=== PATIENT | male | born 1940 | race Caucasian/White ===

== ENCOUNTER 2016-06-15 12:17 | Emergency (ER) | payer MEDICARE, BC, OTHER ==
[~2016-06-15 12:17] MED LIST: ADVIL OR; ADVIL PO; ALEV220C2 PO; ALFU10TA2 PO; AMIT10TA2 OR; AMIT50TA PO; B COMPLEX VITAMIN PO; B-50 COMPLEX; BENI20TA11 PO; CIPR500T89 PO; COLA50CA OR; COZA100T PO; FINA5TAB2 PO; LOSA100T36 PO; MELOPOW PO; METAMUCIL PO; MIRA3350 PO; MIRALEX PO; PREG25CA PO; PREG50CA; PREG50CA PO; SILD50TA PO; SOMI25TA PO; SOMINEX; SOMINEX PO; TRAM50TA2 PO; VITA250L PO; VITAMIN D50000 UNT OR; WELL100T PO; acetaminophen OR; mucinex OR; vitamin D OR
--- NOTE | 2016-06-15 14:42 | EDDOCDS ---
Nurse's Notes [facility] Name: Romulo Banda Age: 75 yrs Sex: Male : 1940 Arrival Date: 06/15/2016 Time: 12:17 Bed TR8 Private MD: Unknown Pcp Diagnosis: Corns and callosities Presentation: 06/15 12:29 Presenting complaint: Patient states: "I called Dr Noel and he told me to come here. I mb9 have a growth between my toes on my right foot that needs to be removed.". Adult Sepsis Screening: The patient does not have new or worsening altered mentation. Patient's respiratory rate is less than 22. Systolic blood pressure is greater than 100. Patient has a qSOFA score of 0- Negative Sepsis Screen. Suicide/Homicide risk assessment- the patient denies having any suicidal and/or homicidal ideations and does not present with any other emotional, behavioral or mental health complaints. 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 Transition of care: patient was not received from another setting of care. 12:29 Acuity: MEY Level 4 mb9 12:29 Method Of Arrival: Walkin/Carried/Asstd mb9 Triage Assessment: 12:37 General: Appears in no apparent distress, Behavior is appropriate for age, cooperative. mb9 Pain: Location: right foot Pain currently is 2 out of 10 on a pain scale. Respiratory: Airway is patent Respiratory effort is even, unlabored. Musculoskeletal: Reports pain to right foot with ambulation. Historical: - Allergies: no known allergies; - Home Meds: 1. Vitamin B-6 50 mg Oral cap (Last dose: 06/14/2016) 2. losartan 100 mg oral tab 1 tab once daily (Last dose: 06/14/2016) 3. finasteride 5 mg oral tab 1 tab once daily (Last dose: 06/14/2016) 4. Metamucil Smooth Texture Oral pack Unknown daily (Last dose: 06/14/2016) 5. amitriptyline 50 mg Oral tab 1 tab once daily (Last dose: 06/14/2016) 6. tramadol 50 mg Oral tab 1 tab (Last dose: 06/14/2016) - PMHx: Hypertension; Anxiety; Depression; - PSHx: lower back and neck fusions; lower back fusion; neck fusion; - Social history: Smoking status: Patient uses tobacco products, heavy tobacco smoker. Patient uses alcohol on a daily basis. No barriers to communication noted, The patient speaks fluent Kazakh. - Family history: No immediate family members are acutely ill. - : The pt / caregiver states he / she is not on anticoagulants. Home medication list is obtained from the facility MAR. - Exposure Risk Screening:: None identified. Screenin:14 Screening information is obtained from the patient. Fall risk: No risks identified. mb9 Assistance ADL's: requires no assistance with activities of daily living. Abuse/DV Screen: The patient / caregiver reports he/she is: not in a situation that causes fear, pain or injury. Nutritional screening: No deficits noted. Advance Directives: There is no active DNR order. home support is adequate. Assessment: 14:14 General: Appears in no apparent distress, Behavior is appropriate for age, cooperative. mb9 Respiratory: Airway is patent Respiratory effort is even, unlabored. Vital Signs: 12:21 BP 173 / 89; Pulse 82; Resp 18 S; Temp 96.1(O); Pulse Ox 98% on R/A; Weight 72.57 kg gr2 (R); Height 5 ft. 0 in. (152.40 cm) (R); Pain 8/10; 14:15 mb9 12:21 Body Mass Index 31.25 (72.57 kg, 152.40 cm) gr2 14:15 pt refused to have vital signs taken at this time. mb9 Vitals: 12:21 Log In Time: June 15, 2016 at 12:21. gr2 ED Course: 12:20 Patient visited by Nain Gamboa. gr2 12:20 Unknown Pcp is Private Physician. gr2 12:20 Patient moved to Waiting gr2 12:22 Patient visited by Nain Gamboa. gr2 12:22 Patient moved to Pre RCE gr2 12:30 Triage Initiated mb9 12:40 pt advised to remain NPO until being seen by a provider. mb9 13:08 Carlos Estrella PA is PHCP. btw 13:08 Rebecca Cline MD is Attending Physician. btw 13:11 Patient moved to Triage 2 ar3 13:12 Patient visited by Carlos Estrella PA. btw 13:25 Wilfred Noel MD is Referral Physician. btw 13:25 Dick Solorzano DPM is Referral Physician. btw 13:40 Patient moved to TR8 ar3 14:14 The patient / caregiver is instructed regarding the plan of care and ED course. mb9 14:14 No IV's were initiated during this patient's visit. No procedures done that require mb9 assistance. Order Results: There are currently no results for this order. Outcome: 13:26 Discharge ordered by Provider. btw 14:14 Discharge Assessment: Patient awake, alert and oriented x 3. No cognitive and/or mb9 functional deficits noted. Patient verbalized understanding of disposition instructions. patient administered narcotics - no. The following High Risk Discharge criteria are identified: None. Discharged to home ambulatory. Condition: good Condition: stable Condition: improved. Discharge instructions given to patient, Instructed on discharge instructions, follow up and referral plans. medication usage, Demonstrated understanding of instructions, Pt was receptive of discharge instructions/ teaching. No special radiology studies were completed. Property :Personal belongings accompany Pt. 14:42 Patient left the ED. mb9 Signatures: Lydia Wilkerson, PUPPET ENGINEER PUPPET ENGINEER ar3 Carlos Estrella PA PA btw Nain Gamboa gr2 Reuben Aburto,RN RN mb9 SERENA
--- NOTE | 2016-06-15 14:42 | EDDOCDS ---
Physician Documentation [facility] Name: Romulo Banda Age: 75 yrs Sex: Male : 1940 Arrival Date: 06/15/2016 Time: 12:17 Bed TR8 Private MD: Unknown Pcp Disposition: 06/15/16 13:26 Discharged to Home/Self Care. Impression: Corns and callosities. - Condition is Stable. - Discharge Instructions: Skin Ulcer. - Medication Reconciliation, Local Pharmacy Hours form. - Follow up: Wilfred Noel MD; When: Call to arrange an appointment; Reason: Further diagnostic work-up, Recheck today's complaints, Continuance of care. Follow up: Dick Solorzano DPM; When: Call to arrange an appointment; Reason: Further diagnostic work-up, Recheck today's complaints, Continuance of care. - Problem is an ongoing problem. - Symptoms are unchanged. Historical: - Allergies: no known allergies; - Home Meds: 1. Vitamin B-6 50 mg Oral cap (Last dose: 06/14/2016) 2. losartan 100 mg oral tab 1 tab once daily (Last dose: 06/14/2016) 3. finasteride 5 mg oral tab 1 tab once daily (Last dose: 06/14/2016) 4. Metamucil Smooth Texture Oral pack Unknown daily (Last dose: 06/14/2016) 5. amitriptyline 50 mg Oral tab 1 tab once daily (Last dose: 06/14/2016) 6. tramadol 50 mg Oral tab 1 tab (Last dose: 06/14/2016) - PMHx: Hypertension; Anxiety; Depression; - PSHx: lower back and neck fusions; lower back fusion; neck fusion; - Social history: Smoking status: Patient uses tobacco products, heavy tobacco smoker. Patient uses alcohol on a daily basis. No barriers to communication noted, The patient speaks fluent [place]. - Family history: No immediate family members are acutely ill. - : The pt / caregiver states he / she is not on anticoagulants. Home medication list is obtained from the facility AUG. - Exposure Risk Screening:: None identified. Vital Signs: 06/15 12:21 BP 173 / 89; Pulse 82; Resp 18 S; Temp 96.1(O); Pulse Ox 98% on R/A; Weight 72.57 kg / gr2 159.99 lbs (R); Height 5 ft. 0 in. (152.40 cm) (R); Pain 8; 14:15 mb9 12:21 Body Mass Index 31.25 (72.57 kg, 152.40 cm) gr2 14:15 pt refused to have vital signs taken at this time. mb9 MDM: 13:40 Financial registration complete. lg Signatures: Alberto Avalos, Reg Reg lg Carlos Estrella PA PA btw Belles, Michael,RN RN mb9 MTDD
--- NOTE | 2016-06-17 15:43 | EDDOCDS ---
Nurse's Notes [facility] Name: Romulo Banda Age: 75 yrs Sex: Male : 1940 Arrival Date: 06/15/2016 Time: 12:17 Bed TR8 Private MD: Unknown Pcp Diagnosis: Corns and callosities Presentation: 06/15 12:29 Presenting complaint: Patient states: "I called Dr Noel and he told me to come here. I mb9 have a growth between my toes on my right foot that needs to be removed.". Adult Sepsis Screening: The patient does not have new or worsening altered mentation. Patient's respiratory rate is less than 22. Systolic blood pressure is greater than 100. Patient has a qSOFA score of 0- Negative Sepsis Screen. Suicide/Homicide risk assessment- the patient denies having any suicidal and/or homicidal ideations and does not present with any other emotional, behavioral or mental health complaints. Status: Patient is not a service officer or dependent. Transition of care: patient was not received from another setting of care. 12:29 Acuity: MEY Level 4 mb9 12:29 Method Of Arrival: Walkin/Carried/Asstd mb9 Triage Assessment: 12:37 General: Appears in no apparent distress, Behavior is appropriate for age, cooperative. mb9 Pain: Location: right foot Pain currently is 2 out of 10 on a pain scale. Respiratory: Airway is patent Respiratory effort is even, unlabored. Musculoskeletal: Reports pain to right foot with ambulation. Historical: - Allergies: no known allergies; - Home Meds: 1. Vitamin B-6 50 mg Oral cap (Last dose: 06/14/2016) 2. losartan 100 mg oral tab 1 tab once daily (Last dose: 06/14/2016) 3. finasteride 5 mg oral tab 1 tab once daily (Last dose: 06/14/2016) 4. Metamucil Smooth Texture Oral pack Unknown daily (Last dose: 06/14/2016) 5. amitriptyline 50 mg Oral tab 1 tab once daily (Last dose: 06/14/2016) 6. tramadol 50 mg Oral tab 1 tab (Last dose: 06/14/2016) - PMHx: Hypertension; Anxiety; Depression; - PSHx: lower back and neck fusions; lower back fusion; neck fusion; - Social history: Smoking status: Patient uses tobacco products, heavy tobacco smoker. Patient uses alcohol on a daily basis. No barriers to communication noted, The patient speaks fluent Georgian. - Family history: No immediate family members are acutely ill. - : The pt / caregiver states he / she is not on anticoagulants. Home medication list is obtained from the facility MAR. - Exposure Risk Screening:: None identified. Screenin:14 Screening information is obtained from the patient. Fall risk: No risks identified. mb9 Assistance ADL's: requires no assistance with activities of daily living. Abuse/DV Screen: The patient / caregiver reports he/she is: not in a situation that causes fear, pain or injury. Nutritional screening: No deficits noted. Advance Directives: There is no active DNR order. home support is adequate. Assessment: 14:14 General: Appears in no apparent distress, Behavior is appropriate for age, cooperative. mb9 Respiratory: Airway is patent Respiratory effort is even, unlabored. Vital Signs: 12:21 BP 173 / 89; Pulse 82; Resp 18 S; Temp 96.1(O); Pulse Ox 98% on R/A; Weight 72.57 kg gr2 (R); Height 5 ft. 0 in. (152.40 cm) (R); Pain 8/10; 14:15 mb9 12:21 Body Mass Index 31.25 (72.57 kg, 152.40 cm) gr2 14:15 pt refused to have vital signs taken at this time. mb9 Vitals: 12:21 Log In Time: June 15, 2016 at 12:21. gr2 ED Course: 12:20 Patient visited by Nain Gamboa. gr2 12:20 Unknown Pcp is Private Physician. gr2 12:20 Patient moved to Waiting gr2 12:22 Patient visited by Nain Gamboa. gr2 12:22 Patient moved to Pre RCE gr2 12:30 Triage Initiated mb9 12:40 pt advised to remain NPO until being seen by a provider. mb9 13:08 Carlos Estrella PA is PHCP. btw 13:08 Rebecca Cline MD is Attending Physician. btw 13:11 Patient moved to Triage 2 ar3 13:12 Patient visited by Carlos Estrella PA. btw 13:25 Wilfred Noel MD is Referral Physician. btw 13:25 Dick Solorzano DPM is Referral Physician. btw 13:40 Patient moved to TR8 ar3 14:14 The patient / caregiver is instructed regarding the plan of care and ED course. mb9 14:14 No IV's were initiated during this patient's visit. No procedures done that require mb9 assistance. 16:23 [facility] Payment Agreement was scanned into [employer] and attached to record. 06/16 12:43 T-Sheet-- Draft Copy was scanned into [employer] and attached to record. gb Order Results: There are currently no results for this order. Outcome: 06/15 13:26 Discharge ordered by Provider. btw 14:14 Discharge Assessment: Patient awake, alert and oriented x 3. No cognitive and/or mb9 functional deficits noted. Patient verbalized understanding of disposition instructions. patient administered narcotics - no. The following High Risk Discharge criteria are identified: None. Discharged to home ambulatory. Condition: good Condition: stable Condition: improved. Discharge instructions given to patient, Instructed on discharge instructions, follow up and referral plans. medication usage, Demonstrated understanding of instructions, Pt was receptive of discharge instructions/ teaching. No special radiology studies were completed. Property :Personal belongings accompany Pt. 14:42 Patient left the ED. mb9 Signatures: Rowena Iglesias, Reg Reg gb Alberto Avalos, Reg Reg lg Lydia Wilkerson, TELEPHONE INSTRUMENT SUPERVISOR TELEPHONE INSTRUMENT SUPERVISOR ar3 Carlos Estrella PA PA btw Nain Gamboa gr2 Reuben Aburto,RN RN mb9 Chart Complete MTDD
--- NOTE | 2016-06-17 15:43 | EDDOCDS ---
Physician Documentation [facility] Name: Romulo Banda Age: 75 yrs Sex: Male : 1940 Arrival Date: 06/15/2016 Time: 12:17 Bed TR8 Private MD: Unknown Pcp Disposition: 06/15/16 13:26 Discharged to Home/Self Care. Impression: Corns and callosities. - Condition is Stable. - Discharge Instructions: Skin Ulcer. - Medication Reconciliation, Local Pharmacy Hours form. - Follow up: Wilfred Noel MD; When: Call to arrange an appointment; Reason: Further diagnostic work-up, Recheck today's complaints, Continuance of care. Follow up: Dick Solorzano DPM; When: Call to arrange an appointment; Reason: Further diagnostic work-up, Recheck today's complaints, Continuance of care. - Problem is an ongoing problem. - Symptoms are unchanged. Historical: - Allergies: no known allergies; - Home Meds: 1. Vitamin B-6 50 mg Oral cap (Last dose: 06/14/2016) 2. losartan 100 mg oral tab 1 tab once daily (Last dose: 06/14/2016) 3. finasteride 5 mg oral tab 1 tab once daily (Last dose: 06/14/2016) 4. Metamucil Smooth Texture Oral pack Unknown daily (Last dose: 06/14/2016) 5. amitriptyline 50 mg Oral tab 1 tab once daily (Last dose: 06/14/2016) 6. tramadol 50 mg Oral tab 1 tab (Last dose: 06/14/2016) - PMHx: Hypertension; Anxiety; Depression; - PSHx: lower back and neck fusions; lower back fusion; neck fusion; - Social history: Smoking status: Patient uses tobacco products, heavy tobacco smoker. Patient uses alcohol on a daily basis. No barriers to communication noted, The patient speaks fluent Iraqi. - Family history: No immediate family members are acutely ill. - : The pt / caregiver states he / she is not on anticoagulants. Home medication list is obtained from the facility AUG. - Exposure Risk Screening:: None identified. Vital Signs: 06/15 12:21 BP 173 / 89; Pulse 82; Resp 18 S; Temp 96.1(O); Pulse Ox 98% on R/A; Weight 72.57 kg / gr2 159.99 lbs (R); Height 5 ft. 0 in. (152.40 cm) (R); Pain 8/10; 14:15 mb9 12:21 Body Mass Index 31.25 (72.57 kg, 152.40 cm) gr2 14:15 pt refused to have vital signs taken at this time. mb9 MDM: 13:40 Financial registration complete. [place] [facility] [place] was [place] into [employer] and attached to record. lg 06/16 12:43 T-Sheet-- Draft Copy was scanned into [employer] and attached to record. gb Signatures: Rowena Iglesias, Reg Reg gb Alberto Avalos, Reg Reg lg Carlos Estrella PA PA btw Belles, MichaelRN RN mb9 The chart was reviewed and I authenticate all verbal orders and agree with the evaluation and treatment provided.Attachments: 06/15 16:23 [facility] [place] lg 06/16 12:43 T-Sheet-- Draft Copy gb Chart Complete MTDD
--- NOTE | 2016-06-17 15:43 | EDDOCDS ---
Physician Documentation [facility] Name: Romulo Banda Age: 75 yrs Sex: Male : 1940 Arrival Date: 06/15/2016 Time: 12:17 Bed TR8 Private MD: Unknown Pcp Disposition: 06/15/16 13:26 Discharged to Home/Self Care. Impression: Corns and callosities. - Condition is Stable. - Discharge Instructions: Skin Ulcer. - Medication Reconciliation, Local Pharmacy Hours form. - Follow up: Wilfred Noel MD; When: Call to arrange an appointment; Reason: Further diagnostic work-up, Recheck today's complaints, Continuance of care. Follow up: Dick Solorzano DPM; When: Call to arrange an appointment; Reason: Further diagnostic work-up, Recheck today's complaints, Continuance of care. - Problem is an ongoing problem. - Symptoms are unchanged. Historical: - Allergies: no known allergies; - Home Meds: 1. Vitamin B-6 50 mg Oral cap (Last dose: 06/14/2016) 2. losartan 100 mg oral tab 1 tab once daily (Last dose: 06/14/2016) 3. finasteride 5 mg oral tab 1 tab once daily (Last dose: 06/14/2016) 4. Metamucil Smooth Texture Oral pack Unknown daily (Last dose: 06/14/2016) 5. amitriptyline 50 mg Oral tab 1 tab once daily (Last dose: 06/14/2016) 6. tramadol 50 mg Oral tab 1 tab (Last dose: 06/14/2016) - PMHx: Hypertension; Anxiety; Depression; - PSHx: lower back and neck fusions; lower back fusion; neck fusion; - Social history: Smoking status: Patient uses tobacco products, heavy tobacco smoker. Patient uses alcohol on a daily basis. No barriers to communication noted, The patient speaks fluent Nauruan. - Family history: No immediate family members are acutely ill. - : The pt / caregiver states he / she is not on anticoagulants. Home medication list is obtained from the facility AUG. - Exposure Risk Screening:: None identified. Vital Signs: 06/15 12:21 BP 173 / 89; Pulse 82; Resp 18 S; Temp 96.1(O); Pulse Ox 98% on R/A; Weight 72.57 kg / gr2 159.99 lbs (R); Height 5 ft. 0 in. (152.40 cm) (R); Pain 8/10; 14:15 mb9 12:21 Body Mass Index 31.25 (72.57 kg, 152.40 cm) gr2 14:15 pt refused to have vital signs taken at this time. mb9 MDM: 13:40 Financial registration complete. : [facility] [place] Payment Agreement was scanned into [employer] and attached to record. lg 06/16 12:43 T-Sheet-- Draft Copy was scanned into [employer] and attached to record. gb Signatures: Rowena Iglesias, Reg Reg gb Alberto Avalos, Reg Reg lg Carlos Estrella PA PA btw Belles, MichaelRN RN mb9 The chart was reviewed and I authenticate all verbal orders and agree with the evaluation and treatment provided.Attachments: 06/15 16:23 [facility] [place] Payment Agreement lg 06/16 12:43 T-Sheet-- Draft Copy gb Chart Complete MTDD
== END 2016-06-15 14:42 | disposition home or self-care (01) ==
LOC: M ED 12:17
DX: L84 Corns and callosities (principal); I10 Essential (primary) hypertension; F41.9 Anxiety disorder, unspecified; F32.9 Major depressive disorder, single episode, unspecified; F17.210 Nicotine dependence, cigarettes, uncomplicated; Z79.899 Other long term (current) drug therapy

== ENCOUNTER → 2016-06-18 | Outpatient (REF) | payer MEDICARE, OTHER | LOC: M SMT 17:02 | PROVIDERS: ATTEND Nurse Practitioner Women's Health | DX: R33.9 Retention of urine, unspecified (principal) | CPT/HCPCS: 51798; 81001; 87086; G0463 ==

== ENCOUNTER → 2016-06-25 | Outpatient (REF) | payer MEDICARE, OTHER | LOC: M SMT 16:58 | PROVIDERS: ATTEND Urology | DX: N40.1 Benign prostatic hyperplasia with lower urinary tract symptoms (principal) ==

== ENCOUNTER → 2016-07-12 | Outpatient (REF) | payer MEDICARE, OTHER ==
[~2016-07-12] MED LIST changes: +ACET500C PO; +AMLO5TAB2 PO; +CIPR500T3 PO; +PERCOCET PO; +STOO100C PO
[2016-07-12 18:19] LABS: INR 0.95
[2016-07-12 18:43] LABS: ALBUMIN 3.6 GM/DL (3.2-5.2); ALBUMIN/GLOBULIN RATIO 0.97 (1.00-1.93); BILIRUBIN,TOTAL 0.4 MG/DL (0.2-1.0); CALCIUM LEVEL 9.1 MG/DL (8.8-10.2); CREATININE FOR GFR 1.28 MG/DL (0.70-1.30); GLOMERULAR FILTRATION RATE 58.5 (>42); PERCENT SATURATION 25.3 % (19.7-37.4); POTASSIUM SERUM 4.7 MEQ/L (3.5-5.1); TOTAL PROTEIN 7.3 GM/DL (6.4-8.2)
[2016-07-12 19:00] LABS: BASO % 0.4 % (0.0-1.0); EOS # 0.4 K/mm3 (0.0-0.50); EOS % 5.4 % (0.0-3.0); LARGE UNSTAINED CELL # 0.2 K/mm3 (0.0-0.4); LARGE UNSTAINED CELL % 2.6 % (0.0-4.0); LYMPH # 1.3 K/mm3 (1.5-4.5); LYMPH % 18.5 % (24.0-44.0); MEAN CORPUSCULAR HEMOGLOBIN 31.7 pg (27.0-33.0); MEAN CORPUSCULAR HGB CONC 32.2 g/dl (32.0-36.5); MEAN CORPUSCULAR VOLUME 98.6 fl (80.0-96.0); MONO # 0.5 K/mm3 (0.0-0.8); MONO % 7.6 % (0.0-5.0); NEUTROPHILS # 4.7 K/mm3 (1.8-7.7); NEUTROPHILS % 65.5 % (36.0-66.0); PLATELET COUNT, AUTOMATED 325 k/mm3 (150-450); RED CELL DISTRIBUTION WIDTH 11.8 % (11.5-14.5); WHITE BLOOD COUNT 7.1 K/mm3 (4.0-10.0)
[2016-07-14 14:20] LABS: BETA 2 MICROGLOBULIN 2.5 mg/L (0.6-2.4)
[2016-07-15 00:06] LABS: FREE KAPPA LIGHT CHAINS SERUM 47.69 mg/L (3.30-19.40); FREE LAMBDA LIGHT CHAINS SERUM 58.85 mg/L (5.71-26.30); KAPPA/LAMBDA RATIO SERUM 0.81 (0.26-1.65)
== END ==
LOC: M SFHCPLAZ 14:47
PROVIDERS: ATTEND Family Medicine
DX: D47.2 Monoclonal gammopathy (principal); N18.3 Chronic kidney disease, stage 3 (moderate); D50.9 Iron deficiency anemia, unspecified; R73.01 Impaired fasting glucose; Z79.899 Other long term (current) drug therapy
CPT/HCPCS: 80053; 80061; 82232; 82728; 82784; 83036; 83550; 83883; 85025; 85610; 85730; G0463

== ENCOUNTER → 2016-07-13 | Outpatient (REF) | payer MEDICARE, OTHER ==
[~2016-07-13] MED LIST changes: -ACET500C PO; -AMLO5TAB2 PO; -CIPR500T3 PO; -PERCOCET PO; -STOO100C PO
== END ==
LOC: M SMT 17:15
PROVIDERS: ATTEND Urology
DX: R33.9 Retention of urine, unspecified (principal)

== ENCOUNTER → 2016-07-27 | Day surgery (SDC) | payer MEDICARE, BC, OTHER ==
[~2016-07-27] VITALS: Ht 172.7 cm; Wt 72.6 kg
[~2016-07-27] MED LIST changes: +ACET500C PO; +ALBUTEROL SULFATE 2.5 MG/0.5 ML INH NEB SOLN As Ordered ONE; +ALBUTEROL SULFATE 2.5 MG/0.5 ML INH NEB SOLN INH ONE; +AMLO5TAB2 PO; +CIPR500T3 PO; +CIPROFLOXACIN 500 MG TAB PO SCH; +KETOROLAC 60 MG/2 ML VIAL (J1885) As Ordered ONE; +LIDOCAINE 2% INJ 100 MG/5 ML SDV (FOR ANES.) As Ordered ONE; +LR 1,000 ML IV SCH; +MIDAZOLAM INJ 2 MG/2 ML VIAL (J2250) As Ordered ONE; +ONDANSETRON 4MG/2ML VIAL (J2405) As Ordered ONE; +ONDANSETRON 4MG/2ML VIAL (J2405) IV PRN; +PERCOCET 5MG/325MG TAB PO PRN; +PERCOCET PO; +PHENYLephrine HCL 500 MCG/5 ML (100MCG/ML) SYRINGE (J2370) As Ordered ONE; +PROPOFOL 200 MG/20 ML VIAL As Ordered ONE; +STOO100C PO; +ePHEDrine SULFATE 25 MG/5 ML(5MG/ML) SYRINGE As Ordered ONE; +fentaNYL 100 MCG/2 ML INJECTION (J3010) As Ordered ONE; +fentaNYL 100 MCG/2 ML INJECTION (J3010) IV PRN
[2016-07-27 12:45] VITALS: BP 127/62
--- NOTE | 2016-07-28 09:39 | RO ---
DATE OF PROCEDURE: 07/27/2016 PREOPERATIVE DIAGNOSIS: Bladder neck contracture. POSTOPERATIVE DIAGNOSIS: Bladder neck contracture. SURGERY PERFORMED: Cystoscopy, plus transurethral resection of bladder neck with electrovaporization Button transurethral resection of prostate (TURP). SURGEON: Dr. Mariano Pederson MARINE FIRER: None. ANESTHESIA: General. FINDINGS: Bladder neck contracture. COMPLICATIONS: None. ESTIMATED BLOOD LOSS: N/A. HISTORY OF PRESENT ILLNESS: This is a 75-year-old male patient that has a history of having had a TURP about 8 months ago. The patient actively came to the clinic for urinary retention. A cystoscopy was performed because a urinary catheter could not be placed. For this reason, a bladder neck dilatation and urinary catheter placement was placed in the urology clinic. The patient has been consented for a bladder neck contracture resection/incision under endoscopic guidance. The procedure consented was cystoscopy plus bladder neck incision/resection. PROCEDURE DESCRIPTION: In a patient under general anesthesia in supine modified low lithotomy position after prepping and draping the area of concern, which included the entire genitalia and abdomen, we introduced a #21 Ukrainian cystoscope with a 30 degrees lens under video endoscopic guidance. The fossa navicularis, penile urethra, bulbar urethra, and membranous urethra were totally normal. At the prostatic urethra could see the verumontanum. The bladder neck was tight. We could actively pass a cystoscope very tightly. The bladder had no tumors, no stones and no foreign objects. Bilateral trabeculations of the bladder were seen. Both ureteral orifices were seen excreting clear urine. We then proceeded to exchange the cystoscope for a resectoscope with a 30 degrees lens. We actively started with a Button to electrovaporize the bladder neck contracture at 7 o'clock and at 5 o'clock completely to the capsule. At that moment in time, we fulgurated bleeding vessels. Then passed the resectoscope out and passed a Amos catheter 20 Ukrainian which went very easy into the bladder. We placed the balloon with 20 mL and connected to gravity. PLAN: The patient will go home with antibiotic and pain medication. Followup at [facility] [place] in about three days to remove the Amos catheter. There were no complications during surgery.
== END | disposition home or self-care (01) ==
LOC: M SDC 08:03
PROVIDERS: ATTEND Urology
DX: N32.0 Bladder-neck obstruction (principal); I10 Essential (primary) hypertension; Z79.899 Other long term (current) drug therapy; F41.9 Anxiety disorder, unspecified; F32.9 Major depressive disorder, single episode, unspecified; F17.210 Nicotine dependence, cigarettes, uncomplicated
CPT/HCPCS: 36415; 52276; 52601; 86850; 86900; 86901; J0690; J1885; J2250; J2370; J2405; J3010

== ENCOUNTER → 2016-08-09 | Outpatient (REF) | payer MEDICARE, OTHER ==
[~2016-08-09] MED LIST changes: -ALBUTEROL SULFATE 2.5 MG/0.5 ML INH NEB SOLN As Ordered ONE; -ALBUTEROL SULFATE 2.5 MG/0.5 ML INH NEB SOLN INH ONE; -CIPROFLOXACIN 500 MG TAB PO SCH; -KETOROLAC 60 MG/2 ML VIAL (J1885) As Ordered ONE; -LIDOCAINE 2% INJ 100 MG/5 ML SDV (FOR ANES.) As Ordered ONE; -LR 1,000 ML IV SCH; -MIDAZOLAM INJ 2 MG/2 ML VIAL (J2250) As Ordered ONE; -ONDANSETRON 4MG/2ML VIAL (J2405) As Ordered ONE; -ONDANSETRON 4MG/2ML VIAL (J2405) IV PRN; -PERCOCET 5MG/325MG TAB PO PRN; -PHENYLephrine HCL 500 MCG/5 ML (100MCG/ML) SYRINGE (J2370) As Ordered ONE; -PROPOFOL 200 MG/20 ML VIAL As Ordered ONE; -ePHEDrine SULFATE 25 MG/5 ML(5MG/ML) SYRINGE As Ordered ONE; -fentaNYL 100 MCG/2 ML INJECTION (J3010) As Ordered ONE; -fentaNYL 100 MCG/2 ML INJECTION (J3010) IV PRN
== END ==
LOC: M SMT 12:50
PROVIDERS: ATTEND Urology
DX: N40.1 Benign prostatic hyperplasia with lower urinary tract symptoms (principal)

== ENCOUNTER → 2016-10-27 | Outpatient (REF) | payer MEDICARE, OTHER | LOC: M SMT 17:08 | PROVIDERS: ATTEND Urology | DX: N40.1 Benign prostatic hyperplasia with lower urinary tract symptoms (principal) | CPT/HCPCS: 51798; 81001; 87086; G0463 ==

== ENCOUNTER → 2016-11-15 | Outpatient (REF) | payer MEDICARE, OTHER ==
[2016-11-15 17:29] LABS: ALBUMIN 3.9 GM/DL (3.2-5.2); ALBUMIN/GLOBULIN RATIO 1.08 (1.00-1.93); BILIRUBIN,TOTAL 0.6 MG/DL (0.2-1.0); CALCIUM LEVEL 9.3 MG/DL (8.8-10.2); CREATININE FOR GFR 1.29 MG/DL (0.70-1.30); POTASSIUM SERUM 4.4 MEQ/L (3.5-5.1); TOTAL PROTEIN 7.5 GM/DL (6.4-8.2)
[2016-11-15 19:29] LABS: BASO % 0.6 % (0.0-1.0); EOS # 0.2 K/mm3 (0.0-0.50); EOS % 3.5 % (0.0-3.0); LARGE UNSTAINED CELL # 0.1 K/mm3 (0.0-0.4); LARGE UNSTAINED CELL % 1.9 % (0.0-4.0); LYMPH # 1.2 K/mm3 (1.5-4.5); LYMPH % 19.5 % (24.0-44.0); MEAN CORPUSCULAR HEMOGLOBIN 32.9 pg (27.0-33.0); MEAN CORPUSCULAR HGB CONC 33.4 g/dl (32.0-36.5); MEAN CORPUSCULAR VOLUME 98.4 fl (80.0-96.0); MONO # 0.6 K/mm3 (0.0-0.8); MONO % 8.8 % (0.0-5.0); NEUTROPHILS # 4.1 K/mm3 (1.8-7.7); NEUTROPHILS % 65.6 % (36.0-66.0); PLATELET COUNT, AUTOMATED 268 k/mm3 (150-450); RED CELL DISTRIBUTION WIDTH 12.7 % (11.5-14.5); WHITE BLOOD COUNT 6.3 K/mm3 (4.0-10.0)
== END ==
LOC: M SFHCPLAZ 14:28
PROVIDERS: ATTEND Family Medicine
DX: N18.3 Chronic kidney disease, stage 3 (moderate) (principal); R73.01 Impaired fasting glucose
CPT/HCPCS: 36415; 80053; 82306; 83036; 83970; 85025; G0463

== ENCOUNTER 2016-12-07 00:57 | Emergency (ER) | payer MEDICARE, BC, OTHER ==
[~2016-12-07 00:57] MED LIST changes: +CIPR-249 PO; -CIPR500T89 PO
[2016-12-07] MEDS ORDERED: TRAM50TA2 PO (01:19)
[2016-12-07] MEDS ORDERED: FINA5TAB2 PO (01:19)
[2016-12-07 02:10] LABS: MICROSCOPIC INDICATED? MAN YES (NO)
[2016-12-07 02:13] LABS: RBC, URINE TNTC /hpf (0-3); SQUAMOUS EPITHELIAL CELL URINE NONE SEEN /hpf (SMALL AMT)
[2016-12-07 02:14] LABS: BACTERIA, URINE MOD AMOUNT; HYALINE CAST, URINE NONE SEEN /lpf (0-1); MICROSCOPIC EXAM PERFORMED; TRANSITIONAL EPI CELLS, URINE SMALL AMOUNT /hpf
== END 2016-12-07 02:46 | disposition home or self-care (01) ==
LOC: M ED 02:05
DX: R31.0 Gross hematuria (principal); R33.8 Other retention of urine; Z79.899 Other long term (current) drug therapy

== ENCOUNTER → 2017-03-14 | Outpatient (REF) | payer MEDICARE, OTHER ==
[2017-03-14 19:02] LABS: VITAMIN B12 LEVEL 449 PG/ML (247-911)
[2017-03-14 19:11] LABS: ALBUMIN 3.7 GM/DL (3.2-5.2); ALBUMIN/GLOBULIN RATIO 0.95 (1.00-1.93); ALKALINE PHOSPHATASE 83 U/L (45-117); ALT/SGPT 21 U/L (12-78); ANION GAP 9 MEQ/L (8-16); AST/SGOT 15 U/L (15-37); BILIRUBIN,TOTAL 0.5 MG/DL (0.2-1.0); BLOOD UREA NITROGEN 25 MG/DL (7-18); CALCIUM LEVEL 9.2 MG/DL (8.8-10.2); CARBON DIOXIDE LEVEL 26 MEQ/L (21-32); CHLORIDE LEVEL 105 MEQ/L (98-107); CREATININE FOR GFR 1.17 MG/DL (0.70-1.30); GLOMERULAR FILTRATION RATE > 60.0 (>42); GLUCOSE, FASTING 71 MG/DL (83-110); POTASSIUM SERUM 4.2 MEQ/L (3.5-5.1); SODIUM LEVEL 140 MEQ/L (136-145); TOTAL PROTEIN 7.6 GM/DL (6.4-8.2)
[2017-03-14 19:27] LABS: BASO % 0.4 % (0.0-1.0); EOS # 0.2 10^3/uL (0.0-0.50); EOS % 1.8 % (0.0-3.0); IMMATURE GRANULOCYTE % 0.3 % (0-0); LYMPH # 1.3 10^3/uL (1.5-4.5); LYMPH % 12.1 % (24.0-44.0); MEAN CORPUSCULAR HEMOGLOBIN 31.9 pg (27.0-33.0); MEAN CORPUSCULAR HGB CONC 32.7 g/dl (32.0-36.5); MEAN CORPUSCULAR VOLUME 97.5 fl (80.0-96.0); MONO # 0.9 10^3/uL (0.0-0.8); MONO % 8.9 % (0.0-5.0); NEUTROPHILS # 8.1 10^3/uL (1.8-7.7); NEUTROPHILS % 76.5 % (36.0-66.0); PLATELET COUNT, AUTOMATED 307 10^3/uL (150-450); RED CELL DISTRIBUTION WIDTH 12.2 % (11.5-14.5); WHITE BLOOD COUNT 10.6 10^3/uL (4.0-10.0)
[2017-03-15 11:45] LABS: PRETREATED FOLATE FOR RBCFOL 10.4 NG/ML
[2017-03-17 00:07] LABS: FREE KAPPA LIGHT CHAINS SERUM 48.4 mg/L (3.3-19.4); FREE LAMBDA LIGHT CHAINS SERUM 58.5 mg/L (5.7-26.3); KAPPA/LAMBDA RATIO SERUM 0.83 (0.26-1.65)
== END ==
LOC: M SFHCPLAZ 15:39
PROVIDERS: ATTEND Family Medicine
DX: D47.2 Monoclonal gammopathy (principal); D50.9 Iron deficiency anemia, unspecified; R73.01 Impaired fasting glucose; Z23 Encounter for immunization
CPT/HCPCS: 80053; 82607; 82747; 83036; 83883; 85025; 90662; G0463

== ENCOUNTER 2017-06-20 06:48 | Inpatient (IN) | payer MEDICARE, BC, OTHER ==
[2017-06-20 07:37] LABS: HEMATOCRIT 30.6 % (42.0-52.0); HEMOGLOBIN 10.2 g/dl (14.0-18.0); MEAN CORPUSCULAR HEMOGLOBIN 30.9 pg (27.0-33.0); MEAN CORPUSCULAR HGB CONC 33.3 g/dl (32.0-36.5); MEAN CORPUSCULAR VOLUME 92.7 fl (80.0-96.0); PLATELET COUNT, AUTOMATED 285 10^3/uL (150-450); RED CELL DISTRIBUTION WIDTH 12.9 % (11.5-14.5)
[2017-06-20 07:46] LABS: POSITIVE MORPH POS FLAG
[2017-06-20 07:51] LABS: ADD MANUAL DIFFER YES; DIFF SLIDE NUMBER 114
[2017-06-20 07:57] LABS: BANDS 5 % (< 11); LYMPHOCYTES 4 % (16-52); MONOCYTES 4 % (0-8); NEUTROPHILS 87 % (35-75)
[2017-06-20 07:58] LABS: PLATELET ESTIMATE NORMAL (NORMAL)
[2017-06-20] MEDS: IPRATROPIUM 0.5MG/ALBUTEROL 2.5MG INH SOL UD 3ML (DUONEB)(J7620) NEB ×3 (08:00→20:35)
[2017-06-20] MEDS: ALBUTEROL SULFATE 2.5 MG/0.5 ML INH NEB SOLN INH (08:00)
[2017-06-20 08:01] LABS: LACTIC ACID SEPSIS PROTOCOL 0.9 MMOL/L (0.4-2.0)
[2017-06-20 08:06] LABS: ABG BASE EXCESS -1.6 (-2.0-2.0); ABG HCO3 22.2 MEQ/L (22.0-26.0); ABG O2 SATURATION 95.6 % (95.0-99.0); ABG PARTIAL PRESSURE CO2 34.2 mmHg (35.0-45.0); ABG PARTIAL PRESSURE O2 73.4 mmHg (75.0-100.0); ABG STANDARD HCO3 23.1 MEQ/L (22.0-26.0); ABG TOTAL CO2 23.2 MEQ/L (23.0-31.0)
[2017-06-20 08:07] LABS: ALBUMIN 2.4 GM/DL (3.2-5.2); ALKALINE PHOSPHATASE 293 U/L (45-117); ALT/SGPT 79 U/L (12-78); AST/SGOT 52 U/L (7-37); BILIRUBIN,DIRECT 0.4 MG/DL (0.0-0.2); BILIRUBIN,TOTAL 0.7 MG/DL (0.2-1.0); NT-PRO BNP 2151 PG/ML (<450); THYROID STIMULATING HORMONE 0.673 uIU/ML (0.358-3.740); THYROXINE (T4) 6.9 UG/DL (4.5-12.0); TOTAL PROTEIN 6.4 GM/DL (6.4-8.2)
[2017-06-20] MEDS: methylPREDNISolone INJ 125 MG/2 ML VIAL (J2930) IV (08:10)
[2017-06-20] MEDS: CEFTRIAXONE SOD 1 GM in APPROPRIATE DILUENT 1 EA IV (08:10)
[2017-06-20 08:41] LABS: MAGNESIUM LEVEL 2.5 MG/DL (1.8-2.4)
[2017-06-20] MEDS: AZITHROMYCIN INJ 500 MG, VIAL MATE ADAPTER 1 EACH in D5W 250 ML IV (09:00)
[2017-06-20 09:01] LABS: INR 1.17; PROTHROMBIN TIME 15.1 SECONDS (12.4-14.5)
[2017-06-20 09:02] LABS: PARTIAL THROMBOPLASTIN TIME 37.6 SECONDS (26.8-37.9)
[2017-06-20 09:11] LABS: ANION GAP 10 MEQ/L (8-16); BLOOD UREA NITROGEN 52 MG/DL (7-18); CALCIUM LEVEL 8.7 MG/DL (8.8-10.2); CARBON DIOXIDE LEVEL 23 MEQ/L (21-32); CHLORIDE LEVEL 108 MEQ/L (98-107); CK-MB VALUE MASS 3.8 NG/ML (0.0-3.6); CPK CREATINE PHOSPHOKINASE 136 U/L (39-308); CREATININE FOR GFR 1.57 MG/DL (0.70-1.30); GLOMERULAR FILTRATION RATE 46.1 (>42); GLUCOSE, FASTING 106 MG/DL (83-110); MB/CK RELATIVE INDEX 2.79 (< OR =4); SODIUM LEVEL 141 MEQ/L (136-145); TROPONIN I < 0.02 NG/ML (< 0.10)
[2017-06-20] MEDS ORDERED: LIDOCAINE 1% MDV 20ML VIAL As Ordered ×2 (09:20→14:02)
[2017-06-20] MEDS ORDERED: ISOVUE-370 76% 100ML VIAL (Q9967) As Ordered (09:31)
[2017-06-20 10:19] LABS: KETONE, URINE AUTO RFX TRACE mg/dL (NEGATIVE); LEUKOCYTE ESTERASE UR AUTO RFX NEGATIVE (NEGATIVE); MUCUS, URINE RFX SMALL (NEGATIVE); NITRITE, URINE AUTO RFX NEGATIVE (NEGATIVE); RBC, URINE AUTO RFX 63 /HPF (0-3); SPECIFIC GRAVITY UR AUTO RFX 1.023 (1.002-1.035); SQUAM EPITHELIAL CELL UR AURFX 1 /HPF (0-6); WBC, URINE AUTO RFX 17 /HPF (0-3)
[2017-06-20] MEDS ORDERED: MIRALAX *UNIT DOSE* 17GM PACKET PO (10:30)
[2017-06-20] MEDS ORDERED: ALBUTEROL SULFATE 2.5 MG/0.5 ML INH NEB SOLN NEB (10:30)
[2017-06-20] MEDS ORDERED: traMADol 50 MG TAB PO (10:30)
[2017-06-20 11:37] LABS: TOTAL PROTEIN 6.6 GM/DL (6.4-8.2)
[2017-06-20] MEDS: amLODIPine 5 MG TAB PO ×2 (13:40→20:26)
[2017-06-20] MEDS: TAMSULOSIN 0.4 MG CAP PO (13:40)
[2017-06-20] MEDS: NS 1,000 ML IV ×2 (13:40→22:30)
[2017-06-20] MEDS: DOCUSATE SODIUM 100 MG CAP PO (13:40)
[2017-06-20] MEDS: LOSARTAN 50 MG TAB PO (13:41)
[2017-06-20] MEDS: THIAMINE HCL 200 MG/2 ML VIAL (J3411) IV (13:41)
[2017-06-20] MEDS: FINASTERIDE 5 MG TAB PO (13:41)
[2017-06-20] MEDS: HEPARIN SOD (PORCINE) 5000 UNITS/ML VIAL SC ×2 (13:42→22:30)
[2017-06-20] MEDS ORDERED: FLUMAZENIL 0.5 MG/5 ML VIAL As Ordered (14:00)
[2017-06-20] MEDS ORDERED: MIDAZOLAM INJ 2 MG/2 ML VIAL (J2250) As Ordered ×3 (14:01)
[2017-06-20] MEDS ORDERED: ONDANSETRON 4MG/2ML VIAL (J2405) IV (14:45)
[2017-06-20] MEDS ORDERED: LEVALBUTEROL 1.25 MG/0.5 ML CONCENTRATE NEB NEB ×2 (14:45→20:00)
[2017-06-20] MEDS: MIDAZOLAM INJ 2 MG/2 ML VIAL (J2250) IV (14:52)
[2017-06-20] MEDS: LIDOCAINE 1% MDV 20ML VIAL SC (15:00)
[2017-06-20 15:07] LABS: LDH LACTATE DEHYDROGENASE 129 U/L (87-241)
[2017-06-20] MEDS: MOM 30ML SUSPENSION UDC PO (15:31)
[2017-06-20] MEDS: PERCOCET 5MG/325MG TAB PO ×2 (15:31→20:25)
[2017-06-20] MEDS: PANTOPRAZOLE 40MG TAB (PROTONIX) PO (15:31)
[2017-06-20 15:35] LABS: PH BODY FLUID 6.626 UNITS (NOT ESTABLISHED); SOURCE, BODY FLUID pH PLEURAL
[2017-06-20 15:55] LABS: LACTIC ACID SEPSIS PROTOCOL 1.1 MMOL/L (0.4-2.0)
[2017-06-20 16:00] LABS: ABG BASE EXCESS -1.7 (-2.0-2.0); ABG HCO3 21.7 MEQ/L (22.0-26.0); ABG O2 SATURATION 94.4 % (95.0-99.0); ABG PARTIAL PRESSURE CO2 32.1 mmHg (35.0-45.0); ABG PARTIAL PRESSURE O2 70.1 mmHg (75.0-100.0); ABG TOTAL CO2 22.6 MEQ/L (23.0-31.0); ABG pH (ARTERIAL) 7.447 UNITS (7.350-7.450)
[2017-06-20 16:02] LABS: AMYLASE, BODY FLUID 16 U/L (NOT ESTABLISHED); CHOLESTEROL, BODY FLUID < 50 MG/DL (NOT ESTABLISHED); SOURCE, BODY FLUID ALBUMIN PLEURAL; SOURCE, BODY FLUID AMYLASE PLEURAL; SOURCE, BODY FLUID CHOL PLEURAL; SOURCE, BODY FLUID GLUCOSE PLEURAL; SOURCE, BODY FLUID TOT PROTEIN PLEURAL; SOURCE, BODY FLUID TRIG PLEURAL; TOTAL PROTEIN, BODY FLUID 4.8 G/DL (NOT ESTABLISHED); TRIGLYCERIDE, BODY FLUID 43 MG/DL (NOT ESTABLISHED)
[2017-06-20 16:20] LABS: LDH, BODY FLUID 8590 U/L (NOT ESTABLISHED); SOURCE, BODY FLUID PLEURAL; SOURCE, BODY FLUID LDH PLEURAL
[2017-06-20] MEDS: ACETAMINOPHEN TAB 650MG DOSE (2X325MG) PO (16:45)
[2017-06-20] MEDS: VITAMIN B COMPLEX/VIT C CAP PO (16:46)
[2017-06-20 17:11] LABS: APPEARANCE, BODY FLUID TURBID (CLEAR); PLEURAL FL COLOR YELLOW (COLORLESS); WBC BODY FLUID 316400 /uL (0-10)
[2017-06-20 17:12] LABS: BF DIFF IF INDICATED? YES (NO); BF MONONUCLEAR CELL % 36.8 % (0-0); BF POLYMORPHONUCLEAR CELL % 63.2 % (0-0); RBC BODY FLUID 12 10^3/uL (<2)
[2017-06-21] MEDS: IPRATROPIUM 0.5MG/ALBUTEROL 2.5MG INH SOL UD 3ML (DUONEB)(J7620) NEB ×4 (02:00→20:57)
[2017-06-21] MEDS: PERCOCET 5MG/325MG TAB PO ×5 (02:24→21:30)
[2017-06-21 05:43] LABS: HEMATOCRIT 32.2 % (42.0-52.0); HEMOGLOBIN 10.6 g/dl (14.0-18.0); MEAN CORPUSCULAR HEMOGLOBIN 30.4 pg (27.0-33.0); MEAN CORPUSCULAR HGB CONC 32.9 g/dl (32.0-36.5); MEAN CORPUSCULAR VOLUME 92.3 fl (80.0-96.0); PLATELET COUNT, AUTOMATED 273 10^3/uL (150-450); RED BLOOD COUNT 3.49 10^6/uL (4.30-6.10); RED CELL DISTRIBUTION WIDTH 13.1 % (11.5-14.5); WHITE BLOOD COUNT 20.1 10^3/uL (4.0-10.0)
[2017-06-21 05:46] LABS: ADD MANUAL DIFFER YES; DIFF SLIDE NUMBER 59; POSITIVE MORPH POS FLAG
[2017-06-21 06:05] LABS: ALBUMIN 1.8 GM/DL (3.2-5.2); ALBUMIN/GLOBULIN RATIO 0.38 (1.00-1.93); ALKALINE PHOSPHATASE 229 U/L (45-117); ALT/SGPT 62 U/L (12-78); ANION GAP 8 MEQ/L (8-16); AST/SGOT 31 U/L (7-37); BILIRUBIN,TOTAL 0.4 MG/DL (0.2-1.0); BLOOD UREA NITROGEN 46 MG/DL (7-18); CALCIUM LEVEL 8.5 MG/DL (8.8-10.2); CARBON DIOXIDE LEVEL 24 MEQ/L (21-32); CHLORIDE LEVEL 110 MEQ/L (98-107); CREATININE FOR GFR 1.49 MG/DL (0.70-1.30); GLOMERULAR FILTRATION RATE 48.9 (>42); GLUCOSE, FASTING 160 MG/DL (83-110); MAGNESIUM LEVEL 3.2 MG/DL (1.8-2.4); POTASSIUM SERUM 4.2 MEQ/L (3.5-5.1); SODIUM LEVEL 142 MEQ/L (136-145); TOTAL PROTEIN 6.6 GM/DL (6.4-8.2)
[2017-06-21 06:39] LABS: BANDS 1 % (< 11); LYMPHOCYTES 2 % (16-52); MONOCYTES 8 % (0-8); NEUTROPHILS 89 % (35-75); PLATELET ESTIMATE NORMAL (NORMAL)
[2017-06-21] MEDS: HEPARIN SOD (PORCINE) 5000 UNITS/ML VIAL SC ×3 (06:51→21:32)
[2017-06-21] MEDS: CEFTRIAXONE SOD 1 GM in APPROPRIATE DILUENT 1 EA IV (09:06)
[2017-06-21] MEDS: MOM 30ML SUSPENSION UDC PO (09:06)
[2017-06-21] MEDS: VITAMIN B COMPLEX/VIT C CAP PO (09:06)
[2017-06-21] MEDS: TAMSULOSIN 0.4 MG CAP PO (09:06)
[2017-06-21] MEDS: FINASTERIDE 5 MG TAB PO (09:06)
[2017-06-21] MEDS: LOSARTAN 50 MG TAB PO (09:07)
[2017-06-21] MEDS: DOCUSATE SODIUM 100 MG CAP PO (09:07)
[2017-06-21] MEDS: amLODIPine 5 MG TAB PO ×2 (09:07→21:31)
[2017-06-21] MEDS: PANTOPRAZOLE 40MG TAB (PROTONIX) PO (09:07)
[2017-06-21] MEDS: AZITHROMYCIN INJ 500 MG, VIAL MATE ADAPTER 1 EACH in D5W 250 ML IV (09:08)
[2017-06-21] MEDS: THIAMINE HCL 200 MG/2 ML VIAL (J3411) IV (09:08)
[2017-06-21] MEDS: NS 1,000 ML IV ×2 (09:10→19:51)
[2017-06-21] MEDS: ALTEPLASE 2 MG/2 ML VIAL (J2997 PER 1MG) XX (13:30)
[2017-06-22] MEDS: IPRATROPIUM 0.5MG/ALBUTEROL 2.5MG INH SOL UD 3ML (DUONEB)(J7620) NEB ×4 (01:54→21:07)
[2017-06-22] MEDS: PERCOCET 5MG/325MG TAB PO ×3 (04:22→16:49)
[2017-06-22] MEDS: NS 1,000 ML IV ×2 (04:23→15:46)
[2017-06-22 05:47] LABS: HEMATOCRIT 29.6 % (42.0-52.0); HEMOGLOBIN 9.9 g/dl (14.0-18.0); MEAN CORPUSCULAR HEMOGLOBIN 30.9 pg (27.0-33.0); MEAN CORPUSCULAR HGB CONC 33.4 g/dl (32.0-36.5); MEAN CORPUSCULAR VOLUME 92.5 fl (80.0-96.0); PLATELET COUNT, AUTOMATED 252 10^3/uL (150-450); RED CELL DISTRIBUTION WIDTH 13.3 % (11.5-14.5); WHITE BLOOD COUNT 19.4 10^3/uL (4.0-10.0)
[2017-06-22 05:49] LABS: ADD MANUAL DIFFER YES; DIFF SLIDE NUMBER 37; POS COUNT POS FLAG; POSITIVE MORPH POS FLAG
[2017-06-22 06:12] LABS: ANION GAP 5 MEQ/L (8-16); BLOOD UREA NITROGEN 41 MG/DL (7-18); CARBON DIOXIDE LEVEL 27 MEQ/L (21-32); CHLORIDE LEVEL 108 MEQ/L (98-107); CREATININE FOR GFR 1.26 MG/DL (0.70-1.30); GLOMERULAR FILTRATION RATE 59.4 (>42); GLUCOSE, FASTING 121 MG/DL (83-110); POTASSIUM SERUM 5.1 MEQ/L (3.5-5.1); SODIUM LEVEL 140 MEQ/L (136-145)
[2017-06-22] MEDS: HEPARIN SOD (PORCINE) 5000 UNITS/ML VIAL SC ×3 (06:14→21:12)
[2017-06-22 06:17] LABS: BANDS 2 % (< 11); EOSINOPHILS 1 % (0-5); LYMPHOCYTES 8 % (16-52); METAMYELOCYTES 2 % (0-0); MONOCYTES 3 % (0-8); MYELOCYTES 2 % (0-0); NEUTROPHILS 82 % (35-75)
[2017-06-22 06:18] LABS: ANISOCYTOSIS 1+; PLATELET ESTIMATE NORMAL (NORMAL)
[2017-06-22] MEDS: CEFTRIAXONE SOD 2 GM in APPROPRIATE DILUENT 1 EA IV (10:09)
[2017-06-22] MEDS: LOSARTAN 50 MG TAB PO (10:12)
[2017-06-22] MEDS: amLODIPine 5 MG TAB PO ×2 (10:13→21:12)
[2017-06-22] MEDS: PANTOPRAZOLE 40MG TAB (PROTONIX) PO (10:13)
[2017-06-22] MEDS: TAMSULOSIN 0.4 MG CAP PO (10:13)
[2017-06-22] MEDS: DOCUSATE SODIUM 100 MG CAP PO (10:14)
[2017-06-22] MEDS: FINASTERIDE 5 MG TAB PO (10:14)
[2017-06-22] MEDS: THIAMINE HCL 200 MG/2 ML VIAL (J3411) IV (10:15)
[2017-06-22] MEDS: MOM 30ML SUSPENSION UDC PO (10:20)
[2017-06-22] MEDS: VITAMIN B COMPLEX/VIT C CAP PO (12:21)
[2017-06-22] MEDS ORDERED: LIDOCAINE 1% MDV 20ML VIAL As Ordered (14:12)
[2017-06-22 14:15] LABS: ALBUMIN % 38.1 % (55.8-66.1); ALPHA-1-GLOBULIN % 12.1 % (2.9-4.9); ALPHA-2-GLOBULINS % 16.4 % (7.1-11.8); BETA-1-GLOBULINS % 8.4 % (4.7-7.2); BETA-2-GLOBULINS % 6.8 % (3.2-6.5); GAMMA GLOBULIN % 18.2 % (11.1-18.8)
[2017-06-22 14:16] LABS: ALBUMIN 2.51 GM/DL (3.29-5.55); ALPHA-2-GLOBULINS 1.08 GM/DL (0.42-0.99); BETA-1-GLOBULINS 0.55 GM/DL (0.28-0.60); BETA-2-GLOBULINS 0.45 GM/DL (0.19-0.55)
[2017-06-22 17:33] LABS: CRYSTALS, BODY FLUID CA PYROPHOSPHATE (NONE SEEN); SOURCE, BODY FLUID CRYSTALS RT KNEE
[2017-06-22 18:04] LABS: RBC BODY FLUID 13 10^3/uL (<2)
[2017-06-22 18:05] LABS: BF MONONUCLEAR CELL % 9.9 % (0-0); WBC BODY FLUID 83430 /uL (0-10)
[2017-06-22 18:06] LABS: APPEARANCE, BODY FLUID TURBID (CLEAR); BF DIFF IF INDICATED? YES (NO); BF POLYMORPHONUCLEAR CELL % 90.1 % (0-0)
[2017-06-22 18:07] LABS: SOURCE, BODY FLUID RT KNEE
[2017-06-23] MEDS: ACETAMINOPHEN TAB 650MG DOSE (2X325MG) PO (00:18)
[2017-06-23] MEDS: IPRATROPIUM 0.5MG/ALBUTEROL 2.5MG INH SOL UD 3ML (DUONEB)(J7620) NEB ×4 (01:31→20:00)
[2017-06-23] MEDS: HEPARIN SOD (PORCINE) 5000 UNITS/ML VIAL SC ×3 (06:00→21:08)
[2017-06-23] MEDS: VITAMIN B COMPLEX/VIT C CAP PO (08:32)
[2017-06-23] MEDS: LOSARTAN 50 MG TAB PO (08:33)
[2017-06-23] MEDS: DOCUSATE SODIUM 100 MG CAP PO (08:33)
[2017-06-23] MEDS: PANTOPRAZOLE 40MG TAB (PROTONIX) PO (08:33)
[2017-06-23] MEDS: TAMSULOSIN 0.4 MG CAP PO (08:33)
[2017-06-23] MEDS: amLODIPine 5 MG TAB PO ×2 (08:34→21:08)
[2017-06-23] MEDS: FINASTERIDE 5 MG TAB PO (08:34)
[2017-06-23] MEDS: PERCOCET 5MG/325MG TAB PO ×2 (08:35→14:33)
[2017-06-23] MEDS: CEFTRIAXONE SOD 2 GM in APPROPRIATE DILUENT 1 EA IV (08:35)
[2017-06-23 08:54] LABS: HEMATOCRIT 34.2 % (42.0-52.0); HEMOGLOBIN 11.6 g/dl (14.0-18.0); MEAN CORPUSCULAR HEMOGLOBIN 30.3 pg (27.0-33.0); MEAN CORPUSCULAR HGB CONC 33.9 g/dl (32.0-36.5); MEAN CORPUSCULAR VOLUME 89.3 fl (80.0-96.0); PLATELET COUNT, AUTOMATED 309 10^3/uL (150-450); RED BLOOD COUNT 3.83 10^6/uL (4.30-6.10); RED CELL DISTRIBUTION WIDTH 13.5 % (11.5-14.5); WHITE BLOOD COUNT 17.6 10^3/uL (4.0-10.0)
[2017-06-23 08:56] LABS: ADD MANUAL DIFFER YES; DIFF SLIDE NUMBER 31; POS COUNT POS FLAG; POSITIVE MORPH POS FLAG
[2017-06-23] MEDS: MOM 30ML SUSPENSION UDC PO (09:24)
[2017-06-23 09:27] LABS: ANION GAP 8 MEQ/L (8-16); BLOOD UREA NITROGEN 28 MG/DL (7-18); CALCIUM LEVEL 8.3 MG/DL (8.8-10.2); CARBON DIOXIDE LEVEL 27 MEQ/L (21-32); CHLORIDE LEVEL 103 MEQ/L (98-107); CREATININE FOR GFR 1.09 MG/DL (0.70-1.30); GLOMERULAR FILTRATION RATE > 60.0 (>42); GLUCOSE, FASTING 149 MG/DL (83-110); POTASSIUM SERUM 4.4 MEQ/L (3.5-5.1); SODIUM LEVEL 138 MEQ/L (136-145)
[2017-06-23 09:29] LABS: BANDS 1 % (< 11); LYMPHOCYTES 11 % (16-52); MONOCYTES 2 % (0-8); MYELOCYTES 1 % (0-0); NEUTROPHILS 85 % (35-75)
[2017-06-23 09:34] LABS: PLATELET ESTIMATE NORMAL (NORMAL)
[2017-06-23] MEDS: NORCO, ANEXSIA 5/325MG TABLET (HYDROcodone/ACETAMINOPHEN) PO (11:19)
[2017-06-23] MEDS: MIRTAZAPINE 15 MG TAB PO (21:07)
[2017-06-24] MEDS: IPRATROPIUM 0.5MG/ALBUTEROL 2.5MG INH SOL UD 3ML (DUONEB)(J7620) NEB ×4 (01:52→20:00)
[2017-06-24] MEDS: ACETAMINOPHEN TAB 650MG DOSE (2X325MG) PO (03:22)
[2017-06-24] MEDS: HEPARIN SOD (PORCINE) 5000 UNITS/ML VIAL SC ×3 (05:59→22:03)
[2017-06-24 06:07] LABS: HEMATOCRIT 31.2 % (42.0-52.0); HEMOGLOBIN 10.7 g/dl (14.0-18.0); MEAN CORPUSCULAR HEMOGLOBIN 30.5 pg (27.0-33.0); MEAN CORPUSCULAR HGB CONC 34.3 g/dl (32.0-36.5); MEAN CORPUSCULAR VOLUME 88.9 fl (80.0-96.0); PLATELET COUNT, AUTOMATED 317 10^3/uL (150-450); RED BLOOD COUNT 3.51 10^6/uL (4.30-6.10); RED CELL DISTRIBUTION WIDTH 13.6 % (11.5-14.5); WHITE BLOOD COUNT 17.4 10^3/uL (4.0-10.0)
[2017-06-24 06:20] LABS: ANION GAP 6 MEQ/L (8-16); BLOOD UREA NITROGEN 30 MG/DL (7-18); CALCIUM LEVEL 8.5 MG/DL (8.8-10.2); CARBON DIOXIDE LEVEL 28 MEQ/L (21-32); CHLORIDE LEVEL 105 MEQ/L (98-107); CREATININE FOR GFR 0.96 MG/DL (0.70-1.30); GLOMERULAR FILTRATION RATE > 60.0 (>42); GLUCOSE, FASTING 112 MG/DL (83-110); POTASSIUM SERUM 4.1 MEQ/L (3.5-5.1); SODIUM LEVEL 139 MEQ/L (136-145)
[2017-06-24 06:25] LABS: ADD MANUAL DIFFER YES; DIFF SLIDE NUMBER 15; POS COUNT POS FLAG; POSITIVE MORPH POS FLAG
[2017-06-24 06:48] LABS: LYMPHOCYTES 6 % (16-52); METAMYELOCYTES 4 % (0-0); MONOCYTES 1 % (0-8); MYELOCYTES 8 % (0-0); NEUTROPHILS 81 % (35-75)
[2017-06-24 06:49] LABS: PLATELET ESTIMATE NORMAL (NORMAL); POIKILOCYTOSIS 1+
[2017-06-24] MEDS: VITAMIN B COMPLEX/VIT C CAP PO (08:16)
[2017-06-24] MEDS: DOCUSATE SODIUM 100 MG CAP PO (08:16)
[2017-06-24] MEDS: TAMSULOSIN 0.4 MG CAP PO (08:17)
[2017-06-24] MEDS: FINASTERIDE 5 MG TAB PO (08:17)
[2017-06-24] MEDS: PERCOCET 5MG/325MG TAB PO ×3 (08:17→22:05)
[2017-06-24] MEDS: PANTOPRAZOLE 40MG TAB (PROTONIX) PO (08:17)
[2017-06-24] MEDS: CEFTRIAXONE SOD 2 GM in APPROPRIATE DILUENT 1 EA IV (08:18)
[2017-06-24] MEDS: LOSARTAN 50 MG TAB PO (08:20)
[2017-06-24] MEDS: MOM 30ML SUSPENSION UDC PO (08:20)
[2017-06-24] MEDS: amLODIPine 5 MG TAB PO ×2 (08:20→20:27)
[2017-06-24] MEDS ORDERED: SLF 3 ML SYR IV (14:00)
[2017-06-24] MEDS: SLF 3 ML SYR IV ×2 (14:00→22:03)
[2017-06-24 16:47] LABS: ERYTHROCYTE SEDIMENTATION RATE 116 mm/hr (0-20)
[2017-06-24 18:54] LABS: HIV 1&2 SCREEN CENTAUR NEGATIVE (NEGATIVE)
[2017-06-24] MEDS: MIRTAZAPINE 15 MG TAB PO (20:27)
[2017-06-25] MEDS: IPRATROPIUM 0.5MG/ALBUTEROL 2.5MG INH SOL UD 3ML (DUONEB)(J7620) NEB ×4 (02:00→19:45)
[2017-06-25 03:51] LABS: HEMATOCRIT 29.9 % (42.0-52.0); HEMOGLOBIN 10.2 g/dl (14.0-18.0); MEAN CORPUSCULAR HEMOGLOBIN 30.5 pg (27.0-33.0); MEAN CORPUSCULAR HGB CONC 34.1 g/dl (32.0-36.5); MEAN CORPUSCULAR VOLUME 89.5 fl (80.0-96.0); PLATELET COUNT, AUTOMATED 308 10^3/uL (150-450); RED BLOOD COUNT 3.34 10^6/uL (4.30-6.10); RED CELL DISTRIBUTION WIDTH 13.5 % (11.5-14.5); WHITE BLOOD COUNT 16.7 10^3/uL (4.0-10.0)
[2017-06-25 04:07] LABS: ANION GAP 4 MEQ/L (8-16); BLOOD UREA NITROGEN 29 MG/DL (7-18); CARBON DIOXIDE LEVEL 29 MEQ/L (21-32); CHLORIDE LEVEL 107 MEQ/L (98-107); CREATININE FOR GFR 0.94 MG/DL (0.70-1.30); GLOMERULAR FILTRATION RATE > 60.0 (>42); GLUCOSE, FASTING 110 MG/DL (83-110); POTASSIUM SERUM 4.1 MEQ/L (3.5-5.1); SODIUM LEVEL 140 MEQ/L (136-145)
[2017-06-25 04:10] LABS: ADD MANUAL DIFFER YES; DIFF SLIDE NUMBER 12; POS COUNT POS FLAG; POSITIVE MORPH POS FLAG
[2017-06-25 05:32] LABS: BANDS 2 % (< 11); LYMPHOCYTES 8 % (16-52); METAMYELOCYTES 1 % (0-0); MONOCYTES 9 % (0-8); NEUTROPHILS 80 % (35-75); PLATELET ESTIMATE NORMAL (NORMAL)
[2017-06-25] MEDS: HEPARIN SOD (PORCINE) 5000 UNITS/ML VIAL SC ×3 (06:43→21:11)
[2017-06-25] MEDS: SLF 3 ML SYR IV ×3 (06:43→21:14)
[2017-06-25] MEDS ORDERED: ROPIvacaine 0.5% 30 ML INJECTION (J2795 PER 1MG) As Ordered (08:03)
[2017-06-25] MEDS: CEFTRIAXONE SOD 2 GM in APPROPRIATE DILUENT 1 EA IV ×2 (08:13→08:40)
[2017-06-25] MEDS ORDERED: fentaNYL 100 MCG/2 ML INJECTION (J3010) As Ordered ×3 (08:41→09:36)
[2017-06-25] MEDS ORDERED: PROPOFOL 200 MG/20 ML VIAL As Ordered (08:41)
[2017-06-25] MEDS ORDERED: LIDOCAINE 2% INJ 100 MG/5 ML SDV (FOR ANES.) As Ordered ×2 (08:41→09:21)
[2017-06-25] MEDS ORDERED: ONDANSETRON 4MG/2ML VIAL (J2405) As Ordered (09:04)
[2017-06-25] MEDS: ceFAZolin 1GM INJ (J0690 PER 500MG) As Ordered ×2 (09:21)
[2017-06-25] MEDS: LR 1,000 ML IV (10:30)
[2017-06-25] MEDS ORDERED: ONDANSETRON 4MG/2ML VIAL (J2405) IV (10:30)
[2017-06-25] MEDS ORDERED: fentaNYL 100 MCG/2 ML INJECTION (J3010) IV (10:30)
[2017-06-25] MEDS: TAMSULOSIN 0.4 MG CAP PO (10:44)
[2017-06-25] MEDS: PANTOPRAZOLE 40MG TAB (PROTONIX) PO (10:44)
[2017-06-25] MEDS: VITAMIN B COMPLEX/VIT C CAP PO (10:44)
[2017-06-25] MEDS: LOSARTAN 50 MG TAB PO (10:45)
[2017-06-25] MEDS: DOCUSATE SODIUM 100 MG CAP PO (10:45)
[2017-06-25] MEDS: FINASTERIDE 5 MG TAB PO (10:46)
[2017-06-25] MEDS: amLODIPine 5 MG TAB PO ×2 (10:46→21:12)
[2017-06-25] MEDS: PERCOCET 5MG/325MG TAB PO ×3 (10:49→21:16)
[2017-06-25] MEDS: MIRTAZAPINE 15 MG TAB PO (21:11)
[2017-06-26] MEDS: PERCOCET 5MG/325MG TAB PO ×4 (00:49→20:46)
[2017-06-26] MEDS: IPRATROPIUM 0.5MG/ALBUTEROL 2.5MG INH SOL UD 3ML (DUONEB)(J7620) NEB ×4 (02:00→19:36)
[2017-06-26] MEDS: HEPARIN SOD (PORCINE) 5000 UNITS/ML VIAL SC ×3 (05:07→20:42)
[2017-06-26] MEDS: SLF 3 ML SYR IV ×3 (05:08→20:42)
[2017-06-26 05:36] LABS: BASO % 0.1 % (0.0-1.0); EOS # 0.1 10^3/uL (0.0-0.50); EOS % 0.4 % (0.0-3.0); HEMATOCRIT 28.4 % (42.0-52.0); HEMOGLOBIN 9.3 g/dl (14.0-18.0); IMMATURE GRANULOCYTE # 0.5 10^3/uL (0-0); LYMPH # 1.1 10^3/uL (1.5-4.5); LYMPH % 8.2 % (24.0-44.0); MEAN CORPUSCULAR HEMOGLOBIN 30.3 pg (27.0-33.0); MEAN CORPUSCULAR HGB CONC 32.7 g/dl (32.0-36.5); MEAN CORPUSCULAR VOLUME 92.5 fl (80.0-96.0); MONO # 1.3 10^3/uL (0.0-0.8); MONO % 9.7 % (0.0-5.0); NEUTROPHILS # 10.4 10^3/uL (1.8-7.7); NEUTROPHILS % 77.6 % (36.0-66.0); PLATELET COUNT, AUTOMATED 296 10^3/uL (150-450); RED BLOOD COUNT 3.07 10^6/uL (4.30-6.10); RED CELL DISTRIBUTION WIDTH 13.9 % (11.5-14.5); WHITE BLOOD COUNT 13.4 10^3/uL (4.0-10.0)
[2017-06-26 05:51] LABS: ANION GAP 4 MEQ/L (8-16); BLOOD UREA NITROGEN 27 MG/DL (7-18); CARBON DIOXIDE LEVEL 31 MEQ/L (21-32); CHLORIDE LEVEL 105 MEQ/L (98-107); CREATININE FOR GFR 1.08 MG/DL (0.70-1.30); GLOMERULAR FILTRATION RATE > 60.0 (>42); GLUCOSE, FASTING 113 MG/DL (83-110); POTASSIUM SERUM 4.3 MEQ/L (3.5-5.1); SODIUM LEVEL 140 MEQ/L (136-145)
[2017-06-26] MEDS: VITAMIN B COMPLEX/VIT C CAP PO (08:27)
[2017-06-26] MEDS: DOCUSATE SODIUM 100 MG CAP PO (08:27)
[2017-06-26] MEDS: PANTOPRAZOLE 40MG TAB (PROTONIX) PO (08:28)
[2017-06-26] MEDS: amLODIPine 5 MG TAB PO ×2 (08:28→20:41)
[2017-06-26] MEDS: LOSARTAN 50 MG TAB PO (08:28)
[2017-06-26] MEDS: TAMSULOSIN 0.4 MG CAP PO (08:28)
[2017-06-26] MEDS: FINASTERIDE 5 MG TAB PO (08:28)
[2017-06-26] MEDS ORDERED: MOM 30ML SUSPENSION UDC As Ordered (14:07)
[2017-06-26] MEDS: NORCO, ANEXSIA 5/325MG TABLET (HYDROcodone/ACETAMINOPHEN) PO (14:08)
[2017-06-26] MEDS: MIRALAX *UNIT DOSE* 17GM PACKET PO (14:11)
[2017-06-26] MEDS: MIRTAZAPINE 15 MG TAB PO (20:39)
[2017-06-27] MEDS: IPRATROPIUM 0.5MG/ALBUTEROL 2.5MG INH SOL UD 3ML (DUONEB)(J7620) NEB ×3 (01:28→21:12)
[2017-06-27] MEDS: HEPARIN SOD (PORCINE) 5000 UNITS/ML VIAL SC ×3 (04:29→21:21)
[2017-06-27] MEDS: ACETAMINOPHEN TAB 650MG DOSE (2X325MG) PO (04:29)
[2017-06-27] MEDS: SLF 3 ML SYR IV ×3 (04:30→21:30)
[2017-06-27 05:21] LABS: BASO % 0.1 % (0.0-1.0); EOS # 0.1 10^3/uL (0.0-0.50); EOS % 0.6 % (0.0-3.0); HEMATOCRIT 28.9 % (42.0-52.0); HEMOGLOBIN 9.4 g/dl (14.0-18.0); IMMATURE GRANULOCYTE # 0.3 10^3/uL (0-0); IMMATURE GRANULOCYTE % 2.2 % (0-0); MEAN CORPUSCULAR HEMOGLOBIN 30.2 pg (27.0-33.0); MEAN CORPUSCULAR HGB CONC 32.5 g/dl (32.0-36.5); MEAN CORPUSCULAR VOLUME 92.9 fl (80.0-96.0); MONO # 1.5 10^3/uL (0.0-0.8); MONO % 10.9 % (0.0-5.0); NEUTROPHILS # 11.1 10^3/uL (1.8-7.7); NEUTROPHILS % 79.2 % (36.0-66.0); PLATELET COUNT, AUTOMATED 351 10^3/uL (150-450); RED BLOOD COUNT 3.11 10^6/uL (4.30-6.10)
[2017-06-27] MEDS: CEFTRIAXONE SOD 2 GM in APPROPRIATE DILUENT 1 EA IV (08:40)
[2017-06-27] MEDS: VITAMIN B COMPLEX/VIT C CAP PO (09:15)
[2017-06-27] MEDS: LOSARTAN 50 MG TAB PO (09:16)
[2017-06-27] MEDS: FINASTERIDE 5 MG TAB PO (09:17)
[2017-06-27] MEDS: TAMSULOSIN 0.4 MG CAP PO (09:17)
[2017-06-27] MEDS: amLODIPine 5 MG TAB PO ×2 (09:17→21:22)
[2017-06-27] MEDS: DOCUSATE SODIUM 100 MG CAP PO (09:17)
[2017-06-27] MEDS: PANTOPRAZOLE 40MG TAB (PROTONIX) PO (09:17)
[2017-06-27] MEDS: MOM 30ML SUSPENSION UDC PO (09:50)
[2017-06-27 11:13] LABS: ALBUMIN 2.1 GM/DL (3.2-5.2); ALBUMIN/GLOBULIN RATIO 0.42 (1.00-1.93); ALKALINE PHOSPHATASE 231 U/L (45-117); ALT/SGPT 81 U/L (12-78); ANION GAP 4 MEQ/L (8-16); AST/SGOT 41 U/L (7-37); BILIRUBIN,TOTAL 0.3 MG/DL (0.2-1.0); BLOOD UREA NITROGEN 30 MG/DL (7-18); CALCIUM LEVEL 8.3 MG/DL (8.8-10.2); CARBON DIOXIDE LEVEL 31 MEQ/L (21-32); CHLORIDE LEVEL 103 MEQ/L (98-107); CREATININE FOR GFR 1.22 MG/DL (0.70-1.30); GLOMERULAR FILTRATION RATE > 60.0 (>42); GLUCOSE, FASTING 116 MG/DL (83-110); POTASSIUM SERUM 5.1 MEQ/L (3.5-5.1); SODIUM LEVEL 138 MEQ/L (136-145); TOTAL PROTEIN 7.1 GM/DL (6.4-8.2)
[2017-06-27] MEDS: PERCOCET 5MG/325MG TAB PO ×2 (15:54→21:29)
[2017-06-27] MEDS: MIRTAZAPINE 15 MG TAB PO (21:21)
[2017-06-28] MEDS: ACETAMINOPHEN TAB 650MG DOSE (2X325MG) PO ×3 (00:06→20:12)
[2017-06-28] MEDS: IPRATROPIUM 0.5MG/ALBUTEROL 2.5MG INH SOL UD 3ML (DUONEB)(J7620) NEB ×4 (02:00→21:12)
[2017-06-28] MEDS: HEPARIN SOD (PORCINE) 5000 UNITS/ML VIAL SC ×3 (04:57→20:11)
[2017-06-28] MEDS: SLF 3 ML SYR IV ×3 (04:58→20:18)
[2017-06-28] MEDS: CEFTRIAXONE SOD 2 GM in APPROPRIATE DILUENT 1 EA IV (08:53)
[2017-06-28] MEDS: TAMSULOSIN 0.4 MG CAP PO (08:54)
[2017-06-28] MEDS: amLODIPine 5 MG TAB PO ×2 (08:54→20:11)
[2017-06-28] MEDS: LOSARTAN 50 MG TAB PO (08:54)
[2017-06-28] MEDS: VITAMIN B COMPLEX/VIT C CAP PO (08:54)
[2017-06-28] MEDS: DOCUSATE SODIUM 100 MG CAP PO (08:55)
[2017-06-28] MEDS: PANTOPRAZOLE 40MG TAB (PROTONIX) PO (08:55)
[2017-06-28] MEDS: FINASTERIDE 5 MG TAB PO (08:55)
[2017-06-28] MEDS: PERCOCET 5MG/325MG TAB PO ×2 (08:55→20:12)
[2017-06-28] MEDS: NORCO, ANEXSIA 5/325MG TABLET (HYDROcodone/ACETAMINOPHEN) PO (12:11)
[2017-06-28] MEDS: SODIUM CHLORIDE 0.9% INJ 10 ML SYR IV (17:18)
[2017-06-28 19:05] LABS: APPEARANCE, URINE HAZY (CLEAR); BACTERIA, URINE AUTO NEGATIVE (NEGATIVE); BILIRUBIN, URINE AUTO NEGATIVE (NEGATIVE); BLOOD, URINE BLOOD NEGATIVE (NEGATIVE); COLOR, URINE YELLOW (YELLOW); GLUCOSE, URINE (UA) AUTO NEGATIVE (NEGATIVE); KETONE, URINE AUTO NEGATIVE (NEGATIVE); LEUKOCYTE ESTERASE, URINE AUTO NEGATIVE (NEGATIVE); NITRITE, URINE AUTO NEGATIVE (NEGATIVE); PROTEIN, URINE AUTO NEGATIVE (NEGATIVE); RBC, URINE AUTO 3 /HPF (0-3); SPECIFIC GRAVITY URINE AUTO 1.015 (1.002-1.035); SQUAMOUS EPITHELIAL CELL UR AU 0 /HPF (0-6); UROBILINOGEN, URINE AUTO 0.2 mg/dL (0.0-2.0); WBC, URINE AUTO 1 /HPF (0-3)
[2017-06-28] MEDS: MIRTAZAPINE 15 MG TAB PO (20:11)
[2017-06-29] MEDS: IPRATROPIUM 0.5MG/ALBUTEROL 2.5MG INH SOL UD 3ML (DUONEB)(J7620) NEB ×4 (01:45→21:20)
[2017-06-29] MEDS: SODIUM CHLORIDE 0.9% INJ 10 ML SYR IV ×2 (04:09→17:21)
[2017-06-29] MEDS: HEPARIN SOD (PORCINE) 5000 UNITS/ML VIAL SC ×3 (04:09→22:14)
[2017-06-29] MEDS: SLF 3 ML SYR IV (04:14)
[2017-06-29 04:47] LABS: BASO % 0.2 % (0.0-1.0); EOS % 0.3 % (0.0-3.0); HEMATOCRIT 26.5 % (42.0-52.0); HEMOGLOBIN 8.5 g/dl (14.0-18.0); IMMATURE GRANULOCYTE # 0.1 10^3/uL (0-0); IMMATURE GRANULOCYTE % 0.8 % (0-0); LYMPH # 0.9 10^3/uL (1.5-4.5); LYMPH % 7.8 % (24.0-44.0); MEAN CORPUSCULAR HEMOGLOBIN 30.5 pg (27.0-33.0); MEAN CORPUSCULAR HGB CONC 32.1 g/dl (32.0-36.5); MONO # 1.6 10^3/uL (0.0-0.8); MONO % 13.9 % (0.0-5.0); NEUTROPHILS # 8.8 10^3/uL (1.8-7.7); PLATELET COUNT, AUTOMATED 406 10^3/uL (150-450); RED BLOOD COUNT 2.79 10^6/uL (4.30-6.10); RED CELL DISTRIBUTION WIDTH 14.1 % (11.5-14.5); WHITE BLOOD COUNT 11.4 10^3/uL (4.0-10.0)
[2017-06-29 05:01] LABS: ALBUMIN 1.8 GM/DL (3.2-5.2); ALBUMIN/GLOBULIN RATIO 0.41 (1.00-1.93); ALKALINE PHOSPHATASE 200 U/L (45-117); ALT/SGPT 63 U/L (12-78); ANION GAP 3 MEQ/L (8-16); AST/SGOT 40 U/L (7-37); BILIRUBIN,TOTAL 0.3 MG/DL (0.2-1.0); BLOOD UREA NITROGEN 34 MG/DL (7-18); CALCIUM LEVEL 7.9 MG/DL (8.8-10.2); CARBON DIOXIDE LEVEL 31 MEQ/L (21-32); CHLORIDE LEVEL 104 MEQ/L (98-107); CREATININE FOR GFR 1.26 MG/DL (0.70-1.30); GLOMERULAR FILTRATION RATE 59.4 (>42); GLUCOSE, FASTING 104 MG/DL (83-110); SODIUM LEVEL 138 MEQ/L (136-145); TOTAL PROTEIN 6.2 GM/DL (6.4-8.2)
[2017-06-29 05:22] LABS: POTASSIUM SERUM 5.2 MEQ/L (3.5-5.1)
[2017-06-29 05:34] LABS: ERYTHROCYTE SEDIMENTATION RATE 127 mm/hr (0-20)
[2017-06-29] MEDS: PANTOPRAZOLE 40MG TAB (PROTONIX) PO (08:44)
[2017-06-29] MEDS: VITAMIN B COMPLEX/VIT C CAP PO (08:44)
[2017-06-29] MEDS: TAMSULOSIN 0.4 MG CAP PO (08:44)
[2017-06-29] MEDS: amLODIPine 5 MG TAB PO ×2 (08:44→21:00)
[2017-06-29] MEDS: FINASTERIDE 5 MG TAB PO (08:44)
[2017-06-29] MEDS: DOCUSATE SODIUM 100 MG CAP PO (08:44)
[2017-06-29] MEDS: PERCOCET 5MG/325MG TAB PO (08:45)
[2017-06-29] MEDS: LOSARTAN 50 MG TAB PO (08:45)
[2017-06-29] MEDS: CEFTRIAXONE SOD 2 GM in APPROPRIATE DILUENT 1 EA IV (09:35)
[2017-06-29] MEDS: ACETAMINOPHEN TAB 650MG DOSE (2X325MG) PO (14:10)
[2017-06-29] MEDS: MOM 30ML SUSPENSION UDC PO (17:20)
[2017-06-29] MEDS: MIRALAX *UNIT DOSE* 17GM PACKET PO (17:21)
[2017-06-29] MEDS: MIRTAZAPINE 15 MG TAB PO (22:14)
[2017-06-30] MEDS: IPRATROPIUM 0.5MG/ALBUTEROL 2.5MG INH SOL UD 3ML (DUONEB)(J7620) NEB ×4 (01:41→20:30)
[2017-06-30 05:33] LABS: HEMOGLOBIN 8.1 g/dl (14.0-18.0); MEAN CORPUSCULAR HEMOGLOBIN 30.8 pg (27.0-33.0); MEAN CORPUSCULAR HGB CONC 32.4 g/dl (32.0-36.5); MEAN CORPUSCULAR VOLUME 95.1 fl (80.0-96.0); PLATELET COUNT, AUTOMATED 378 10^3/uL (150-450); RED BLOOD COUNT 2.63 10^6/uL (4.30-6.10); RED CELL DISTRIBUTION WIDTH 13.9 % (11.5-14.5); WHITE BLOOD COUNT 9.9 10^3/uL (4.0-10.0)
[2017-06-30] MEDS: MOM 30ML SUSPENSION UDC PO (05:36)
[2017-06-30] MEDS: HEPARIN SOD (PORCINE) 5000 UNITS/ML VIAL SC ×3 (05:37→21:25)
[2017-06-30] MEDS: SODIUM CHLORIDE 0.9% INJ 10 ML SYR IV ×2 (05:37→16:46)
[2017-06-30] MEDS: MIRALAX *UNIT DOSE* 17GM PACKET PO (05:38)
[2017-06-30] MEDS: ACETAMINOPHEN TAB 650MG DOSE (2X325MG) PO ×3 (05:52→16:46)
[2017-06-30 06:02] LABS: ALBUMIN 1.7 GM/DL (3.2-5.2); ALBUMIN/GLOBULIN RATIO 0.39 (1.00-1.93); ALKALINE PHOSPHATASE 194 U/L (45-117); ALT/SGPT 66 U/L (12-78); ANION GAP 3 MEQ/L (8-16); AST/SGOT 44 U/L (7-37); BILIRUBIN,TOTAL 0.5 MG/DL (0.2-1.0); BLOOD UREA NITROGEN 30 MG/DL (7-18); CARBON DIOXIDE LEVEL 31 MEQ/L (21-32); CHLORIDE LEVEL 104 MEQ/L (98-107); CREATININE FOR GFR 1.13 MG/DL (0.70-1.30); GLOMERULAR FILTRATION RATE > 60.0 (>42); GLUCOSE, FASTING 106 MG/DL (83-110); POTASSIUM SERUM 5.1 MEQ/L (3.5-5.1); SODIUM LEVEL 138 MEQ/L (136-145); TOTAL PROTEIN 6.1 GM/DL (6.4-8.2)
[2017-06-30] MEDS: LOSARTAN 50 MG TAB PO (08:55)
[2017-06-30] MEDS: DOCUSATE SODIUM 100 MG CAP PO (08:55)
[2017-06-30] MEDS: CEFTRIAXONE SOD 2 GM in APPROPRIATE DILUENT 1 EA IV (08:55)
[2017-06-30] MEDS: amLODIPine 5 MG TAB PO (08:56)
[2017-06-30] MEDS: TAMSULOSIN 0.4 MG CAP PO (08:56)
[2017-06-30] MEDS: PANTOPRAZOLE 40MG TAB (PROTONIX) PO (08:57)
[2017-06-30] MEDS: FINASTERIDE 5 MG TAB PO (08:57)
[2017-06-30] MEDS: VITAMIN B COMPLEX/VIT C CAP PO (08:57)
[2017-06-30] MEDS: NS 1,000 ML IV (11:53)
[2017-06-30 12:29] LABS: ERYTHROCYTE SEDIMENTATION RATE 126 mm/hr (0-20)
[2017-06-30 18:35] LABS: VITAMIN B12 LEVEL 794 PG/ML (247-911)
[2017-06-30] MEDS: MIRTAZAPINE 15 MG TAB PO (21:24)
[2017-07-01] MEDS: NS 1,000 ML IV (00:20)
[2017-07-01] MEDS: IPRATROPIUM 0.5MG/ALBUTEROL 2.5MG INH SOL UD 3ML (DUONEB)(J7620) NEB ×4 (02:00→19:49)
[2017-07-01] MEDS: ACETAMINOPHEN TAB 650MG DOSE (2X325MG) PO ×3 (05:03→17:58)
[2017-07-01] MEDS: HEPARIN SOD (PORCINE) 5000 UNITS/ML VIAL SC ×3 (05:03→22:16)
[2017-07-01] MEDS: SODIUM CHLORIDE 0.9% INJ 10 ML SYR IV ×2 (05:04→17:29)
[2017-07-01 05:27] LABS: BASO % 0.1 % (0.0-1.0); EOS % 0.3 % (0.0-3.0); HEMATOCRIT 24.8 % (42.0-52.0); IMMATURE GRANULOCYTE # 0.1 10^3/uL (0-0); IMMATURE GRANULOCYTE % 0.5 % (0-0); LYMPH # 0.8 10^3/uL (1.5-4.5); MEAN CORPUSCULAR HEMOGLOBIN 30.8 pg (27.0-33.0); MEAN CORPUSCULAR HGB CONC 32.3 g/dl (32.0-36.5); MEAN CORPUSCULAR VOLUME 95.4 fl (80.0-96.0); MONO # 1.3 10^3/uL (0.0-0.8); MONO % 11.5 % (0.0-5.0); NEUTROPHILS # 9.2 10^3/uL (1.8-7.7); NEUTROPHILS % 80.6 % (36.0-66.0); PLATELET COUNT, AUTOMATED 380 10^3/uL (150-450); RED CELL DISTRIBUTION WIDTH 13.9 % (11.5-14.5); RETIC HEMOGLOBIN EQUIVALENT 31.1 pg (24-36); RETICULOCYTE % 1.5 % (0.5-1.5); WHITE BLOOD COUNT 11.4 10^3/uL (4.0-10.0)
[2017-07-01 06:12] LABS: ALBUMIN 1.8 GM/DL (3.2-5.2); ALBUMIN/GLOBULIN RATIO 0.39 (1.00-1.93); ALKALINE PHOSPHATASE 193 U/L (45-117); ALT/SGPT 72 U/L (12-78); ANION GAP 5 MEQ/L (8-16); AST/SGOT 42 U/L (7-37); BILIRUBIN,TOTAL 0.3 MG/DL (0.2-1.0); BLOOD UREA NITROGEN 25 MG/DL (7-18); CALCIUM LEVEL 7.9 MG/DL (8.8-10.2); CARBON DIOXIDE LEVEL 27 MEQ/L (21-32); CHLORIDE LEVEL 104 MEQ/L (98-107); CREATININE FOR GFR 1.07 MG/DL (0.70-1.30); GLOMERULAR FILTRATION RATE > 60.0 (>42); GLUCOSE, FASTING 119 MG/DL (83-110); POTASSIUM SERUM 4.8 MEQ/L (3.5-5.1); SODIUM LEVEL 136 MEQ/L (136-145); TOTAL PROTEIN 6.4 GM/DL (6.4-8.2)
[2017-07-01] MEDS: DOCUSATE SODIUM 100 MG CAP PO (08:14)
[2017-07-01] MEDS: PANTOPRAZOLE 40MG TAB (PROTONIX) PO (08:14)
[2017-07-01] MEDS: VITAMIN B COMPLEX/VIT C CAP PO (08:14)
[2017-07-01] MEDS: FINASTERIDE 5 MG TAB PO (08:14)
[2017-07-01] MEDS: CEFTRIAXONE SOD 2 GM in APPROPRIATE DILUENT 1 EA IV (10:11)
[2017-07-01] MEDS ORDERED: PROHANCE 279.3MG/ML 15ML VIAL (A9576) As Ordered (19:26)
[2017-07-01] MEDS: MIRTAZAPINE 15 MG TAB PO (22:16)
[2017-07-02] MEDS: IPRATROPIUM 0.5MG/ALBUTEROL 2.5MG INH SOL UD 3ML (DUONEB)(J7620) NEB ×4 (01:26→20:00)
[2017-07-02] MEDS: ACETAMINOPHEN TAB 650MG DOSE (2X325MG) PO ×3 (04:49→23:09)
[2017-07-02] MEDS: MOM 30ML SUSPENSION UDC PO (04:50)
[2017-07-02] MEDS: SODIUM CHLORIDE 0.9% INJ 10 ML SYR IV ×2 (04:50→16:16)
[2017-07-02] MEDS: HEPARIN SOD (PORCINE) 5000 UNITS/ML VIAL SC ×3 (04:50→20:19)
[2017-07-02 05:35] LABS: HEMATOCRIT 25.8 % (42.0-52.0); HEMOGLOBIN 8.2 g/dl (14.0-18.0); MEAN CORPUSCULAR HEMOGLOBIN 29.8 pg (27.0-33.0); MEAN CORPUSCULAR HGB CONC 31.8 g/dl (32.0-36.5); MEAN CORPUSCULAR VOLUME 93.8 fl (80.0-96.0); PLATELET COUNT, AUTOMATED 434 10^3/uL (150-450); RED BLOOD COUNT 2.75 10^6/uL (4.30-6.10); RED CELL DISTRIBUTION WIDTH 13.8 % (11.5-14.5); WHITE BLOOD COUNT 9.2 10^3/uL (4.0-10.0)
[2017-07-02 05:41] LABS: ANION GAP 5 MEQ/L (8-16); BLOOD UREA NITROGEN 21 MG/DL (7-18); CALCIUM LEVEL 8.1 MG/DL (8.8-10.2); CARBON DIOXIDE LEVEL 28 MEQ/L (21-32); CHLORIDE LEVEL 106 MEQ/L (98-107); CREATININE FOR GFR 0.96 MG/DL (0.70-1.30); GLOMERULAR FILTRATION RATE > 60.0 (>42); GLUCOSE, FASTING 101 MG/DL (83-110); POTASSIUM SERUM 4.5 MEQ/L (3.5-5.1); SODIUM LEVEL 139 MEQ/L (136-145)
[2017-07-02] MEDS: VITAMIN B COMPLEX/VIT C CAP PO (08:37)
[2017-07-02] MEDS: CEFTRIAXONE SOD 2 GM in APPROPRIATE DILUENT 1 EA IV (08:37)
[2017-07-02] MEDS: PANTOPRAZOLE 40MG TAB (PROTONIX) PO (08:37)
[2017-07-02] MEDS: DOCUSATE SODIUM 100 MG CAP PO (08:37)
[2017-07-02] MEDS: FINASTERIDE 5 MG TAB PO (08:37)
[2017-07-02] MEDS: MIRTAZAPINE 15 MG TAB PO (20:19)
[2017-07-03] MEDS: IPRATROPIUM 0.5MG/ALBUTEROL 2.5MG INH SOL UD 3ML (DUONEB)(J7620) NEB ×4 (02:00→20:00)
[2017-07-03] MEDS: HEPARIN SOD (PORCINE) 5000 UNITS/ML VIAL SC ×3 (05:21→21:10)
[2017-07-03] MEDS: SODIUM CHLORIDE 0.9% INJ 10 ML SYR IV ×2 (05:21→17:25)
[2017-07-03 05:30] LABS: BASO % 0.2 % (0.0-1.0); EOS # 0.1 10^3/uL (0.0-0.50); EOS % 0.7 % (0.0-3.0); HEMATOCRIT 25.3 % (42.0-52.0); HEMOGLOBIN 8.1 g/dl (14.0-18.0); IMMATURE GRANULOCYTE % 0.3 % (0-0); LYMPH # 0.8 10^3/uL (1.5-4.5); LYMPH % 7.9 % (24.0-44.0); MEAN CORPUSCULAR HEMOGLOBIN 30.7 pg (27.0-33.0); MEAN CORPUSCULAR VOLUME 95.8 fl (80.0-96.0); MONO # 1.1 10^3/uL (0.0-0.8); MONO % 10.3 % (0.0-5.0); NEUTROPHILS # 8.6 10^3/uL (1.8-7.7); NEUTROPHILS % 80.6 % (36.0-66.0); PLATELET COUNT, AUTOMATED 391 10^3/uL (150-450); RED BLOOD COUNT 2.64 10^6/uL (4.30-6.10); RED CELL DISTRIBUTION WIDTH 13.5 % (11.5-14.5); WHITE BLOOD COUNT 10.7 10^3/uL (4.0-10.0)
[2017-07-03 05:57] LABS: IRON (FE) 13 UG/DL (65-175); PERCENT SATURATION 8.4 % (19.7-50.0); TOTAL IRON BINDING CAPACITY 154 UG/DL (250-450)
[2017-07-03 06:00] LABS: ALBUMIN 1.8 GM/DL (3.2-5.2); ALBUMIN/GLOBULIN RATIO 0.39 (1.00-1.93); ALKALINE PHOSPHATASE 173 U/L (45-117); ALT/SGPT 66 U/L (12-78); ANION GAP 5 MEQ/L (8-16); AST/SGOT 34 U/L (7-37); BILIRUBIN,TOTAL 0.3 MG/DL (0.2-1.0); BLOOD UREA NITROGEN 26 MG/DL (7-18); CALCIUM LEVEL 8.1 MG/DL (8.8-10.2); CARBON DIOXIDE LEVEL 28 MEQ/L (21-32); CHLORIDE LEVEL 106 MEQ/L (98-107); CREATININE FOR GFR 1.03 MG/DL (0.70-1.30); GLOMERULAR FILTRATION RATE > 60.0 (>42); GLUCOSE, FASTING 118 MG/DL (83-110); POTASSIUM SERUM 4.5 MEQ/L (3.5-5.1); SODIUM LEVEL 139 MEQ/L (136-145); TOTAL PROTEIN 6.4 GM/DL (6.4-8.2)
[2017-07-03] MEDS: PANTOPRAZOLE 40MG TAB (PROTONIX) PO (09:02)
[2017-07-03] MEDS: CEFTRIAXONE SOD 2 GM in APPROPRIATE DILUENT 1 EA IV (09:02)
[2017-07-03] MEDS: DOCUSATE SODIUM 100 MG CAP PO (09:02)
[2017-07-03] MEDS: VITAMIN B COMPLEX/VIT C CAP PO (09:02)
[2017-07-03] MEDS: FINASTERIDE 5 MG TAB PO (09:02)
[2017-07-03] MEDS: ACETAMINOPHEN TAB 650MG DOSE (2X325MG) PO (10:25)
[2017-07-03] MEDS: NORCO, ANEXSIA 5/325MG TABLET (HYDROcodone/ACETAMINOPHEN) PO (13:27)
[2017-07-03] MEDS: DICLOFENAC EPOLAMINE 1.3 % PATCH TOP (21:10)
[2017-07-03] MEDS: MUPIROCIN 2% OINT 22 GM TUBE TOP (21:10)
[2017-07-03] MEDS: MIRTAZAPINE 15 MG TAB PO (21:10)
[2017-07-04] MEDS: NORCO, ANEXSIA 5/325MG TABLET (HYDROcodone/ACETAMINOPHEN) PO ×4 (00:04→20:06)
[2017-07-04] MEDS: IPRATROPIUM 0.5MG/ALBUTEROL 2.5MG INH SOL UD 3ML (DUONEB)(J7620) NEB ×4 (02:00→20:08)
[2017-07-04] MEDS: MOM 30ML SUSPENSION UDC PO (05:49)
[2017-07-04] MEDS: HEPARIN SOD (PORCINE) 5000 UNITS/ML VIAL SC ×2 (05:50→22:00)
[2017-07-04] MEDS: SODIUM CHLORIDE 0.9% INJ 10 ML SYR IV ×2 (05:50→18:31)
[2017-07-04 07:00] LABS: BASO % 0.3 % (0.0-1.0); EOS # 0.1 10^3/uL (0.0-0.50); EOS % 0.7 % (0.0-3.0); HEMATOCRIT 25.4 % (42.0-52.0); IMMATURE GRANULOCYTE % 0.3 % (0-0); LYMPH % 10.6 % (24.0-44.0); MEAN CORPUSCULAR HEMOGLOBIN 30.2 pg (27.0-33.0); MEAN CORPUSCULAR HGB CONC 31.5 g/dl (32.0-36.5); MEAN CORPUSCULAR VOLUME 95.8 fl (80.0-96.0); MONO # 1.1 10^3/uL (0.0-0.8); MONO % 11.6 % (0.0-5.0); NEUTROPHILS % 76.5 % (36.0-66.0); PLATELET COUNT, AUTOMATED 374 10^3/uL (150-450); RED BLOOD COUNT 2.65 10^6/uL (4.30-6.10); RED CELL DISTRIBUTION WIDTH 13.3 % (11.5-14.5); WHITE BLOOD COUNT 9.2 10^3/uL (4.0-10.0)
[2017-07-04 07:28] LABS: ALBUMIN 1.8 GM/DL (3.2-5.2); ALBUMIN/GLOBULIN RATIO 0.38 (1.00-1.93); ALKALINE PHOSPHATASE 164 U/L (45-117); ALT/SGPT 66 U/L (12-78); ANION GAP 7 MEQ/L (8-16); AST/SGOT 34 U/L (7-37); BILIRUBIN,TOTAL 0.4 MG/DL (0.2-1.0); BLOOD UREA NITROGEN 24 MG/DL (7-18); CALCIUM LEVEL 8.6 MG/DL (8.8-10.2); CARBON DIOXIDE LEVEL 28 MEQ/L (21-32); CHLORIDE LEVEL 104 MEQ/L (98-107); CREATININE FOR GFR 1.02 MG/DL (0.70-1.30); GLOMERULAR FILTRATION RATE > 60.0 (>42); GLUCOSE, FASTING 95 MG/DL (83-110); POTASSIUM SERUM 4.7 MEQ/L (3.5-5.1); SODIUM LEVEL 139 MEQ/L (136-145); TOTAL PROTEIN 6.6 GM/DL (6.4-8.2)
[2017-07-04] MEDS: MUPIROCIN 2% OINT 22 GM TUBE TOP ×3 (08:10→20:04)
[2017-07-04] MEDS: DICLOFENAC EPOLAMINE 1.3 % PATCH TOP ×2 (08:10→20:04)
[2017-07-04] MEDS: VITAMIN B COMPLEX/VIT C CAP PO (08:10)
[2017-07-04] MEDS: CEFTRIAXONE SOD 2 GM in APPROPRIATE DILUENT 1 EA IV (08:10)
[2017-07-04] MEDS: FINASTERIDE 5 MG TAB PO (08:10)
[2017-07-04] MEDS: PANTOPRAZOLE 40MG TAB (PROTONIX) PO (08:10)
[2017-07-04] MEDS: DOCUSATE SODIUM 100 MG CAP PO (08:10)
[2017-07-04] MEDS: MIRTAZAPINE 15 MG TAB PO (20:04)
[2017-07-05] MEDS: IPRATROPIUM 0.5MG/ALBUTEROL 2.5MG INH SOL UD 3ML (DUONEB)(J7620) NEB ×5 (02:00→23:02)
[2017-07-05] MEDS: NORCO, ANEXSIA 5/325MG TABLET (HYDROcodone/ACETAMINOPHEN) PO ×3 (03:05→17:30)
[2017-07-05] MEDS: MOM 30ML SUSPENSION UDC PO (03:11)
[2017-07-05] MEDS: MIRALAX *UNIT DOSE* 17GM PACKET PO (03:11)
[2017-07-05] MEDS: SODIUM CHLORIDE 0.9% INJ 10 ML SYR IV ×3 (06:00→17:30)
[2017-07-05] MEDS: HEPARIN SOD (PORCINE) 5000 UNITS/ML VIAL SC ×3 (06:00→23:01)
[2017-07-05] MEDS: VITAMIN B COMPLEX/VIT C CAP PO (08:53)
[2017-07-05] MEDS: PANTOPRAZOLE 40MG TAB (PROTONIX) PO (08:53)
[2017-07-05] MEDS: CEFTRIAXONE SOD 2 GM in APPROPRIATE DILUENT 1 EA IV (08:53)
[2017-07-05] MEDS: predniSONE 20 MG TAB PO (08:54)
[2017-07-05] MEDS: FINASTERIDE 5 MG TAB PO (08:54)
[2017-07-05] MEDS: DICLOFENAC EPOLAMINE 1.3 % PATCH TOP ×2 (08:54→23:00)
[2017-07-05] MEDS: DOCUSATE SODIUM 100 MG CAP PO (08:54)
[2017-07-05] MEDS: MUPIROCIN 2% OINT 22 GM TUBE TOP ×3 (08:55→23:02)
[2017-07-05 20:53] LABS: BEDSIDE GLUCOSE 262 MG/DL (83-110)
[2017-07-05] MEDS: MIRTAZAPINE 15 MG TAB PO (23:00)
[2017-07-06] MEDS: HEPARIN SOD (PORCINE) 5000 UNITS/ML VIAL SC ×3 (05:26→21:13)
[2017-07-06] MEDS: SODIUM CHLORIDE 0.9% INJ 10 ML SYR IV ×3 (05:28→18:26)
[2017-07-06 06:04] LABS: BASO % 0.3 % (0.0-1.0); EOS # 0.1 10^3/uL (0.0-0.50); EOS % 0.8 % (0.0-3.0); HEMATOCRIT 24.7 % (42.0-52.0); HEMOGLOBIN 7.7 g/dl (14.0-18.0); IMMATURE GRANULOCYTE % 0.3 % (0-0); LYMPH # 1.2 10^3/uL (1.5-4.5); LYMPH % 13.2 % (24.0-44.0); MEAN CORPUSCULAR HGB CONC 31.2 g/dl (32.0-36.5); MEAN CORPUSCULAR VOLUME 96.1 fl (80.0-96.0); MONO # 0.8 10^3/uL (0.0-0.8); NEUTROPHILS # 6.7 10^3/uL (1.8-7.7); NEUTROPHILS % 76.4 % (36.0-66.0); PLATELET COUNT, AUTOMATED 368 10^3/uL (150-450); RED BLOOD COUNT 2.57 10^6/uL (4.30-6.10); RED CELL DISTRIBUTION WIDTH 13.2 % (11.5-14.5); WHITE BLOOD COUNT 8.8 10^3/uL (4.0-10.0)
[2017-07-06 06:42] LABS: ALBUMIN 1.9 GM/DL (3.2-5.2); ALBUMIN/GLOBULIN RATIO 0.39 (1.00-1.93); ALKALINE PHOSPHATASE 174 U/L (45-117); ALT/SGPT 101 U/L (12-78); ANION GAP 6 MEQ/L (8-16); AST/SGOT 72 U/L (7-37); BILIRUBIN,TOTAL 0.2 MG/DL (0.2-1.0); BLOOD UREA NITROGEN 30 MG/DL (7-18); CALCIUM LEVEL 8.5 MG/DL (8.8-10.2); CARBON DIOXIDE LEVEL 29 MEQ/L (21-32); CHLORIDE LEVEL 105 MEQ/L (98-107); CREATININE FOR GFR 1.04 MG/DL (0.70-1.30); GLOMERULAR FILTRATION RATE > 60.0 (>42); GLUCOSE, FASTING 105 MG/DL (70-100); POTASSIUM SERUM 4.8 MEQ/L (3.5-5.1); SODIUM LEVEL 140 MEQ/L (136-145); TOTAL PROTEIN 6.8 GM/DL (6.4-8.2)
[2017-07-06] MEDS: IPRATROPIUM 0.5MG/ALBUTEROL 2.5MG INH SOL UD 3ML (DUONEB)(J7620) NEB ×3 (07:12→20:00)
[2017-07-06] MEDS: VITAMIN B COMPLEX/VIT C CAP PO (07:29)
[2017-07-06] MEDS: PANTOPRAZOLE 40MG TAB (PROTONIX) PO (07:29)
[2017-07-06] MEDS: DOCUSATE SODIUM 100 MG CAP PO (07:29)
[2017-07-06] MEDS: FINASTERIDE 5 MG TAB PO (07:29)
[2017-07-06] MEDS: predniSONE 20 MG TAB PO (07:29)
[2017-07-06] MEDS: MUPIROCIN 2% OINT 22 GM TUBE TOP ×3 (07:30→21:14)
[2017-07-06] MEDS: DICLOFENAC EPOLAMINE 1.3 % PATCH TOP ×2 (07:30→21:12)
[2017-07-06] MEDS: CEFTRIAXONE SOD 2 GM in APPROPRIATE DILUENT 1 EA IV (07:30)
[2017-07-06] MEDS: MIRALAX *UNIT DOSE* 17GM PACKET PO ×3 (07:36→21:12)
[2017-07-06] MEDS: BISACODYL 10 MG SUPP PR (07:36)
[2017-07-06] MEDS: MOM 30ML SUSPENSION UDC PO (07:36)
[2017-07-06] MEDS: NORCO, ANEXSIA 5/325MG TABLET (HYDROcodone/ACETAMINOPHEN) PO ×2 (07:37→18:26)
[2017-07-06 14:34] LABS: IMMEDIATE SPIN CROSSMATCH 1 1
[2017-07-06] MEDS: MIRTAZAPINE 15 MG TAB PO (21:12)
[2017-07-07 00:06] LABS: FREE KAPPA LIGHT CHAINS SERUM 149.8 mg/L (3.3-19.4); FREE LAMBDA LIGHT CHAINS SERUM 122.6 mg/L (5.7-26.3); KAPPA/LAMBDA RATIO SERUM 1.22 (0.26-1.65); KAPPA/LAMBDA RATIO URINE 13.42 (2.04-10.37)
[2017-07-07] MEDS: IPRATROPIUM 0.5MG/ALBUTEROL 2.5MG INH SOL UD 3ML (DUONEB)(J7620) NEB ×4 (02:00→20:11)
[2017-07-07] MEDS: HEPARIN SOD (PORCINE) 5000 UNITS/ML VIAL SC ×3 (05:29→21:05)
[2017-07-07] MEDS: SODIUM CHLORIDE 0.9% INJ 10 ML SYR IV ×3 (05:29→17:12)
[2017-07-07] MEDS: NORCO, ANEXSIA 5/325MG TABLET (HYDROcodone/ACETAMINOPHEN) PO ×3 (05:43→23:38)
[2017-07-07 05:46] LABS: BASO % 0.4 % (0.0-1.0); EOS # 0.1 10^3/uL (0.0-0.50); HEMATOCRIT 27.9 % (42.0-52.0); HEMOGLOBIN 8.7 g/dl (14.0-18.0); IMMATURE GRANULOCYTE % 0.4 % (0-0); LYMPH # 1.3 10^3/uL (1.5-4.5); MEAN CORPUSCULAR HEMOGLOBIN 29.2 pg (27.0-33.0); MEAN CORPUSCULAR HGB CONC 31.2 g/dl (32.0-36.5); MEAN CORPUSCULAR VOLUME 93.6 fl (80.0-96.0); MONO # 0.9 10^3/uL (0.0-0.8); MONO % 10.6 % (0.0-5.0); NEUTROPHILS # 5.9 10^3/uL (1.8-7.7); NEUTROPHILS % 71.6 % (36.0-66.0); PLATELET COUNT, AUTOMATED 427 10^3/uL (150-450); RED BLOOD COUNT 2.98 10^6/uL (4.30-6.10); RED CELL DISTRIBUTION WIDTH 14.2 % (11.5-14.5); WHITE BLOOD COUNT 8.2 10^3/uL (4.0-10.0)
[2017-07-07 06:45] LABS: ALBUMIN 1.9 GM/DL (3.2-5.2); ALBUMIN/GLOBULIN RATIO 0.39 (1.00-1.93); ALKALINE PHOSPHATASE 178 U/L (45-117); ALT/SGPT 171 U/L (12-78); ANION GAP 5 MEQ/L (8-16); AST/SGOT 108 U/L (7-37); BILIRUBIN,TOTAL 0.2 MG/DL (0.2-1.0); BLOOD UREA NITROGEN 29 MG/DL (7-18); CALCIUM LEVEL 8.6 MG/DL (8.8-10.2); CARBON DIOXIDE LEVEL 31 MEQ/L (21-32); CHLORIDE LEVEL 102 MEQ/L (98-107); CREATININE FOR GFR 1.14 MG/DL (0.70-1.30); GLOMERULAR FILTRATION RATE > 60.0 (>42); GLUCOSE, FASTING 94 MG/DL (70-100); POTASSIUM SERUM 5.1 MEQ/L (3.5-5.1); SODIUM LEVEL 138 MEQ/L (136-145); TOTAL PROTEIN 6.8 GM/DL (6.4-8.2)
[2017-07-07] MEDS: FINASTERIDE 5 MG TAB PO (08:53)
[2017-07-07] MEDS: CEFTRIAXONE SOD 2 GM in APPROPRIATE DILUENT 1 EA IV (08:53)
[2017-07-07] MEDS: DOCUSATE SODIUM 100 MG CAP PO (08:53)
[2017-07-07] MEDS: MIRALAX *UNIT DOSE* 17GM PACKET PO ×2 (08:53→21:00)
[2017-07-07] MEDS: predniSONE 20 MG TAB PO (08:53)
[2017-07-07] MEDS: PANTOPRAZOLE 40MG TAB (PROTONIX) PO (08:53)
[2017-07-07] MEDS: VITAMIN B COMPLEX/VIT C CAP PO (08:54)
[2017-07-07] MEDS: DICLOFENAC EPOLAMINE 1.3 % PATCH TOP ×2 (08:54→21:04)
[2017-07-07] MEDS: MUPIROCIN 2% OINT 22 GM TUBE TOP ×3 (08:54→21:05)
[2017-07-07 13:18] LABS: C REACTIVE PROTEIN QUANTITATIV 8.96 MG/DL (0.00-0.30)
[2017-07-07 13:40] LABS: ERYTHROCYTE SEDIMENTATION RATE 126 mm/hr (0-20)
[2017-07-07] MEDS: MIRTAZAPINE 15 MG TAB PO (21:05)
[2017-07-08] MEDS: IPRATROPIUM 0.5MG/ALBUTEROL 2.5MG INH SOL UD 3ML (DUONEB)(J7620) NEB ×4 (02:00→20:25)
[2017-07-08] MEDS: HEPARIN SOD (PORCINE) 5000 UNITS/ML VIAL SC ×3 (05:06→22:01)
[2017-07-08] MEDS: SODIUM CHLORIDE 0.9% INJ 10 ML SYR IV ×3 (05:06→17:31)
[2017-07-08 05:28] LABS: BASO # 0.1 10^3/uL (0.0-0.2); BASO % 0.5 % (0.0-1.0); EOS # 0.1 10^3/uL (0.0-0.50); EOS % 0.9 % (0.0-3.0); HEMATOCRIT 28.8 % (42.0-52.0); IMMATURE GRANULOCYTE % 0.3 % (0-0); LYMPH # 1.5 10^3/uL (1.5-4.5); LYMPH % 15.8 % (24.0-44.0); MEAN CORPUSCULAR HEMOGLOBIN 29.5 pg (27.0-33.0); MEAN CORPUSCULAR HGB CONC 31.3 g/dl (32.0-36.5); MEAN CORPUSCULAR VOLUME 94.4 fl (80.0-96.0); MONO % 11.2 % (0.0-5.0); NEUTROPHILS # 6.5 10^3/uL (1.8-7.7); NEUTROPHILS % 71.3 % (36.0-66.0); PLATELET COUNT, AUTOMATED 469 10^3/uL (150-450); RED BLOOD COUNT 3.05 10^6/uL (4.30-6.10); RED CELL DISTRIBUTION WIDTH 13.8 % (11.5-14.5); WHITE BLOOD COUNT 9.2 10^3/uL (4.0-10.0)
[2017-07-08 05:54] LABS: ALBUMIN 1.9 GM/DL (3.2-5.2); ALBUMIN/GLOBULIN RATIO 0.38 (1.00-1.93); ALKALINE PHOSPHATASE 194 U/L (45-117); ALT/SGPT 250 U/L (12-78); ANION GAP 5 MEQ/L (8-16); AST/SGOT 96 U/L (7-37); BILIRUBIN,TOTAL 0.2 MG/DL (0.2-1.0); BLOOD UREA NITROGEN 29 MG/DL (7-18); CALCIUM LEVEL 8.6 MG/DL (8.8-10.2); CARBON DIOXIDE LEVEL 32 MEQ/L (21-32); CHLORIDE LEVEL 103 MEQ/L (98-107); CREATININE FOR GFR 1.12 MG/DL (0.70-1.30); GLOMERULAR FILTRATION RATE > 60.0 (>42); GLUCOSE, FASTING 93 MG/DL (70-100); POTASSIUM SERUM 4.9 MEQ/L (3.5-5.1); SODIUM LEVEL 140 MEQ/L (136-145); TOTAL PROTEIN 6.9 GM/DL (6.4-8.2)
[2017-07-08] MEDS: MUPIROCIN 2% OINT 22 GM TUBE TOP ×3 (09:00→22:00)
[2017-07-08] MEDS: DOCUSATE SODIUM 100 MG CAP PO (09:31)
[2017-07-08] MEDS: FINASTERIDE 5 MG TAB PO (09:31)
[2017-07-08] MEDS: MIRALAX *UNIT DOSE* 17GM PACKET PO ×2 (09:31→21:00)
[2017-07-08] MEDS: PANTOPRAZOLE 40MG TAB (PROTONIX) PO (09:31)
[2017-07-08] MEDS: predniSONE 20 MG TAB PO (09:31)
[2017-07-08] MEDS: VITAMIN B COMPLEX/VIT C CAP PO (09:31)
[2017-07-08] MEDS: DICLOFENAC EPOLAMINE 1.3 % PATCH TOP ×2 (09:32→22:00)
[2017-07-08] MEDS: CEFTRIAXONE SOD 2 GM in APPROPRIATE DILUENT 1 EA IV (09:32)
[2017-07-08] MEDS: NORCO, ANEXSIA 5/325MG TABLET (HYDROcodone/ACETAMINOPHEN) PO ×2 (09:32→15:50)
[2017-07-08] MEDS: AMOXICILLIN 500 MG CAP PO ×2 (17:31→22:01)
[2017-07-08] MEDS: MIRTAZAPINE 15 MG TAB PO (22:00)
[2017-07-09] MEDS: NORCO, ANEXSIA 5/325MG TABLET (HYDROcodone/ACETAMINOPHEN) PO ×3 (04:00→18:31)
[2017-07-09] MEDS: HEPARIN SOD (PORCINE) 5000 UNITS/ML VIAL SC ×3 (05:28→21:21)
[2017-07-09] MEDS: AMOXICILLIN 500 MG CAP PO ×3 (05:28→21:20)
[2017-07-09] MEDS: SODIUM CHLORIDE 0.9% INJ 10 ML SYR IV ×2 (05:28→17:30)
[2017-07-09 06:04] LABS: ALBUMIN 2.1 GM/DL (3.2-5.2); ALBUMIN/GLOBULIN RATIO 0.42 (1.00-1.93); ALKALINE PHOSPHATASE 175 U/L (45-117); ALT/SGPT 174 U/L (12-78); ANION GAP 6 MEQ/L (8-16); AST/SGOT 36 U/L (7-37); BILIRUBIN,TOTAL 0.2 MG/DL (0.2-1.0); BLOOD UREA NITROGEN 27 MG/DL (7-18); CALCIUM LEVEL 8.8 MG/DL (8.8-10.2); CARBON DIOXIDE LEVEL 31 MEQ/L (21-32); CHLORIDE LEVEL 103 MEQ/L (98-107); CREATININE FOR GFR 1.06 MG/DL (0.70-1.30); GLOMERULAR FILTRATION RATE > 60.0 (>42); GLUCOSE, FASTING 89 MG/DL (70-100); POTASSIUM SERUM 4.5 MEQ/L (3.5-5.1); SODIUM LEVEL 140 MEQ/L (136-145); TOTAL PROTEIN 7.1 GM/DL (6.4-8.2)
[2017-07-09] MEDS: IPRATROPIUM 0.5MG/ALBUTEROL 2.5MG INH SOL UD 3ML (DUONEB)(J7620) NEB ×3 (07:09→20:03)
[2017-07-09] MEDS: MIRALAX *UNIT DOSE* 17GM PACKET PO ×2 (09:00→21:20)
[2017-07-09] MEDS: VITAMIN B COMPLEX/VIT C CAP PO (09:17)
[2017-07-09] MEDS: predniSONE 20 MG TAB PO (09:18)
[2017-07-09] MEDS: PANTOPRAZOLE 40MG TAB (PROTONIX) PO (09:18)
[2017-07-09] MEDS: DICLOFENAC EPOLAMINE 1.3 % PATCH TOP ×2 (09:18→21:21)
[2017-07-09] MEDS: FINASTERIDE 5 MG TAB PO (09:18)
[2017-07-09] MEDS: DOCUSATE SODIUM 100 MG CAP PO (09:19)
[2017-07-09] MEDS: MUPIROCIN 2% OINT 22 GM TUBE TOP ×3 (09:19→21:21)
[2017-07-09] MEDS: MIRTAZAPINE 15 MG TAB PO (21:20)
[2017-07-10] MEDS: IPRATROPIUM 0.5MG/ALBUTEROL 2.5MG INH SOL UD 3ML (DUONEB)(J7620) NEB ×4 (01:24→20:00)
[2017-07-10] MEDS: HEPARIN SOD (PORCINE) 5000 UNITS/ML VIAL SC ×3 (05:18→22:25)
[2017-07-10] MEDS: SODIUM CHLORIDE 0.9% INJ 10 ML SYR IV ×2 (05:18→17:59)
[2017-07-10] MEDS: AMOXICILLIN 500 MG CAP PO ×3 (05:18→22:24)
[2017-07-10 05:58] LABS: ALBUMIN 2.2 GM/DL (3.2-5.2); ALBUMIN/GLOBULIN RATIO 0.45 (1.00-1.93); ALKALINE PHOSPHATASE 172 U/L (45-117); ALT/SGPT 141 U/L (12-78); ANION GAP 5 MEQ/L (8-16); AST/SGOT 30 U/L (7-37); BILIRUBIN,TOTAL 0.3 MG/DL (0.2-1.0); BLOOD UREA NITROGEN 30 MG/DL (7-18); CALCIUM LEVEL 9.1 MG/DL (8.8-10.2); CARBON DIOXIDE LEVEL 32 MEQ/L (21-32); CHLORIDE LEVEL 101 MEQ/L (98-107); CREATININE FOR GFR 1.06 MG/DL (0.70-1.30); GLOMERULAR FILTRATION RATE > 60.0 (>42); GLUCOSE, FASTING 93 MG/DL (70-100); POTASSIUM SERUM 4.6 MEQ/L (3.5-5.1); SODIUM LEVEL 138 MEQ/L (136-145); TOTAL PROTEIN 7.1 GM/DL (6.4-8.2)
[2017-07-10] MEDS: predniSONE 20 MG TAB PO (08:50)
[2017-07-10] MEDS: PANTOPRAZOLE 40MG TAB (PROTONIX) PO (08:50)
[2017-07-10] MEDS: DOCUSATE SODIUM 100 MG CAP PO (08:50)
[2017-07-10] MEDS: FINASTERIDE 5 MG TAB PO (08:50)
[2017-07-10] MEDS: VITAMIN B COMPLEX/VIT C CAP PO (08:50)
[2017-07-10] MEDS: NORCO, ANEXSIA 5/325MG TABLET (HYDROcodone/ACETAMINOPHEN) PO ×2 (08:50→16:09)
[2017-07-10] MEDS: MIRALAX *UNIT DOSE* 17GM PACKET PO ×2 (08:51→22:25)
[2017-07-10] MEDS: MUPIROCIN 2% OINT 22 GM TUBE TOP ×3 (08:51→22:24)
[2017-07-10] MEDS: DICLOFENAC EPOLAMINE 1.3 % PATCH TOP ×2 (08:51→22:25)
[2017-07-10] MEDS: MIRTAZAPINE 15 MG TAB PO (22:25)
[2017-07-11] MEDS: NORCO, ANEXSIA 5/325MG TABLET (HYDROcodone/ACETAMINOPHEN) PO ×4 (00:08→18:26)
[2017-07-11] MEDS: IPRATROPIUM 0.5MG/ALBUTEROL 2.5MG INH SOL UD 3ML (DUONEB)(J7620) NEB ×4 (02:00→20:02)
[2017-07-11] MEDS: AMOXICILLIN 500 MG CAP PO ×3 (06:04→22:02)
[2017-07-11] MEDS: SODIUM CHLORIDE 0.9% INJ 10 ML SYR IV (06:04)
[2017-07-11] MEDS: HEPARIN SOD (PORCINE) 5000 UNITS/ML VIAL SC ×3 (06:05→22:03)
[2017-07-11] MEDS: VITAMIN B COMPLEX/VIT C CAP PO (09:43)
[2017-07-11] MEDS: PANTOPRAZOLE 40MG TAB (PROTONIX) PO (09:43)
[2017-07-11] MEDS: DOCUSATE SODIUM 100 MG CAP PO (09:43)
[2017-07-11] MEDS: predniSONE 20 MG TAB PO (09:44)
[2017-07-11] MEDS: FINASTERIDE 5 MG TAB PO (09:44)
[2017-07-11] MEDS: MUPIROCIN 2% OINT 22 GM TUBE TOP ×3 (09:47→22:09)
[2017-07-11] MEDS: DICLOFENAC EPOLAMINE 1.3 % PATCH TOP ×2 (09:47→22:07)
[2017-07-11] MEDS: MIRALAX *UNIT DOSE* 17GM PACKET PO ×2 (09:50→22:03)
[2017-07-11 16:26] LABS: C REACTIVE PROTEIN QUANTITATIV 4.11 MG/DL (0.00-0.30)
[2017-07-11] MEDS: MIRTAZAPINE 15 MG TAB PO (22:02)
[2017-07-12] MEDS: IPRATROPIUM 0.5MG/ALBUTEROL 2.5MG INH SOL UD 3ML (DUONEB)(J7620) NEB ×2 (02:00→09:13)
[2017-07-12] MEDS: AMOXICILLIN 500 MG CAP PO (06:01)
[2017-07-12] MEDS: HEPARIN SOD (PORCINE) 5000 UNITS/ML VIAL SC (06:01)
[2017-07-12 07:07] LABS: C REACTIVE PROTEIN QUANTITATIV 3.48 MG/DL (0.00-0.30)
[2017-07-12 08:20] LABS: ERYTHROCYTE SEDIMENTATION RATE 86 mm/hr (0-20)
[2017-07-12] MEDS: NORCO, ANEXSIA 5/325MG TABLET (HYDROcodone/ACETAMINOPHEN) PO (08:47)
[2017-07-12] MEDS: MIRALAX *UNIT DOSE* 17GM PACKET PO (09:30)
[2017-07-12] MEDS: DOCUSATE SODIUM 100 MG CAP PO (09:30)
[2017-07-12] MEDS: DICLOFENAC EPOLAMINE 1.3 % PATCH TOP (10:12)
[2017-07-12] MEDS: FINASTERIDE 5 MG TAB PO (10:12)
[2017-07-12] MEDS: MUPIROCIN 2% OINT 22 GM TUBE TOP (10:13)
[2017-07-12] MEDS: VITAMIN B COMPLEX/VIT C CAP PO (10:13)
[2017-07-12] MEDS: PANTOPRAZOLE 40MG TAB (PROTONIX) PO (10:13)
== END 2017-07-12 12:56 | DRG 853 ==
LOC: M MSPAV 07-01 16:20 → M ED 06:48 → M ED INP 10:25 → M PCU 12:50
PROC: 0SBC4ZZ Excision of Right Knee Joint, Percutaneous Endoscopic Approach (ICD-10-PCS; principal; 2017-06-25 08:30)
PROC: 0W9B30Z Drainage of Left Pleural Cavity with Drainage Device, Percutaneous Approach (ICD-10-PCS; 2017-06-25 08:41)
PROC: 3E013GC Introduction of Other Therapeutic Substance into Subcutaneous Tissue, Percutaneous Approach (ICD-10-PCS; 2017-06-25 08:41)
PROC: 0S9C3ZZ Drainage of Right Knee Joint, Percutaneous Approach (ICD-10-PCS; 2017-06-25 08:41)
PROC: 02HV33Z Insertion of Infusion Device into Superior Vena Cava, Percutaneous Approach (ICD-10-PCS; 2017-06-25 08:41)
DX: A40.3 Sepsis due to Streptococcus pneumoniae (principal); J86.9 Pyothorax without fistula; J18.9 Pneumonia, unspecified organism; E43 Unspecified severe protein-calorie malnutrition; J90 Pleural effusion, not elsewhere classified; M00.861 Arthritis due to other bacteria, right knee; N13.30 Unspecified hydronephrosis; D64.9 Anemia, unspecified; M10.9 Gout, unspecified; K57.30 Diverticulosis of large intestine without perforation or abscess without bleeding; Z79.899 Other long term (current) drug therapy; E53.8 Deficiency of other specified B group vitamins; F41.9 Anxiety disorder, unspecified; K70.0 Alcoholic fatty liver; G62.89 Other specified polyneuropathies; F17.200 Nicotine dependence, unspecified, uncomplicated; N40.0 Benign prostatic hyperplasia without lower urinary tract symptoms; J44.9 Chronic obstructive pulmonary disease, unspecified; R33.9 Retention of urine, unspecified

== ENCOUNTER → 2017-07-19 | Outpatient (REF) ==
[2017-07-19 11:03] LABS: HEMATOCRIT 33.3 % (42.0-52.0); HEMOGLOBIN 10.4 g/dl (14.0-18.0); MEAN CORPUSCULAR HEMOGLOBIN 29.6 pg (27.0-33.0); MEAN CORPUSCULAR HGB CONC 31.2 g/dl (32.0-36.5); MEAN CORPUSCULAR VOLUME 94.9 fl (80.0-96.0); PLATELET COUNT, AUTOMATED 343 10^3/uL (150-450); RED BLOOD COUNT 3.51 10^6/uL (4.30-6.10); RED CELL DISTRIBUTION WIDTH 13.2 % (11.5-14.5); WHITE BLOOD COUNT 10.3 10^3/uL (4.0-10.0)
[2017-07-19 11:26] LABS: ANION GAP 10 MEQ/L (8-16); BLOOD UREA NITROGEN 27 MG/DL (7-18); CALCIUM LEVEL 9.1 MG/DL (8.8-10.2); CARBON DIOXIDE LEVEL 27 MEQ/L (21-32); CHLORIDE LEVEL 99 MEQ/L (98-107); CREATININE FOR GFR 1.05 MG/DL (0.70-1.30); GLOMERULAR FILTRATION RATE > 60.0 (>42); GLUCOSE, FASTING 96 MG/DL (70-100); POTASSIUM SERUM 4.8 MEQ/L (3.5-5.1); SODIUM LEVEL 136 MEQ/L (136-145)
== END ==
DX: I10 Essential (primary) hypertension (principal)

== ENCOUNTER → 2017-08-15 | Outpatient (REF) ==
[2017-08-16 10:31] LABS: HEMOGLOBIN 10.3 g/dl (14.0-18.0); MEAN CORPUSCULAR HEMOGLOBIN 28.6 pg (27.0-33.0); MEAN CORPUSCULAR HGB CONC 31.2 g/dl (32.0-36.5); MEAN CORPUSCULAR VOLUME 91.7 fl (80.0-96.0); PLATELET COUNT, AUTOMATED 342 10^3/uL (150-450); WHITE BLOOD COUNT 8.5 10^3/uL (4.0-10.0)
[2017-08-16 11:03] LABS: ANION GAP 9 MEQ/L (8-16); BLOOD UREA NITROGEN 26 MG/DL (7-18); CALCIUM LEVEL 8.9 MG/DL (8.8-10.2); CARBON DIOXIDE LEVEL 27 MEQ/L (21-32); CHLORIDE LEVEL 102 MEQ/L (98-107); CREATININE FOR GFR 1.27 MG/DL (0.70-1.30); GLOMERULAR FILTRATION RATE 58.9 (>42); GLUCOSE, FASTING 124 MG/DL (70-100); POTASSIUM SERUM 4.7 MEQ/L (3.5-5.1); SODIUM LEVEL 138 MEQ/L (136-145)
== END ==
DX: I10 Essential (primary) hypertension (principal)

== ENCOUNTER → 2017-08-26 | Outpatient (REF) ==
[2017-08-26 18:26] LABS: APPEARANCE, URINE HAZY (CLEAR); BACTERIA, URINE AUTO 1+ (NEGATIVE); BILIRUBIN, URINE AUTO NEGATIVE (NEGATIVE); BLOOD, URINE BLOOD NEGATIVE (NEGATIVE); COLOR, URINE YELLOW (YELLOW); GLUCOSE, URINE (UA) AUTO NEGATIVE (NEGATIVE); KETONE, URINE AUTO NEGATIVE (NEGATIVE); LEUKOCYTE ESTERASE, URINE AUTO 3+ (NEGATIVE); MUCUS, URINE SMALL (NEGATIVE); NITRITE, URINE AUTO NEGATIVE (NEGATIVE); PROTEIN, URINE AUTO NEGATIVE (NEGATIVE); RBC, URINE AUTO 9 /HPF (0-3); SPECIFIC GRAVITY URINE AUTO 1.013 (1.002-1.035); SQUAMOUS EPITHELIAL CELL UR AU 0 /HPF (0-6); UROBILINOGEN, URINE AUTO 0.2 mg/dL (0.0-2.0); WBC, URINE AUTO 104 /HPF (0-3)
== END ==
DX: R33.9 Retention of urine, unspecified (principal)

== ENCOUNTER → 2017-08-29 | Outpatient (REF) ==
[2017-08-29 14:17] LABS: HEMATOCRIT 34.3 % (42.0-52.0); HEMOGLOBIN 10.5 g/dl (14.0-18.0); MEAN CORPUSCULAR HEMOGLOBIN 28.2 pg (27.0-33.0); MEAN CORPUSCULAR HGB CONC 30.6 g/dl (32.0-36.5); PLATELET COUNT, AUTOMATED 371 10^3/uL (150-450); RED BLOOD COUNT 3.73 10^6/uL (4.30-6.10); RED CELL DISTRIBUTION WIDTH 13.2 % (11.5-14.5); WHITE BLOOD COUNT 7.6 10^3/uL (4.0-10.0)
[2017-08-29 14:40] LABS: ERYTHROCYTE SEDIMENTATION RATE 82 mm/hr (0-20)
[2017-08-29 14:43] LABS: URIC ACID 5.8 MG/DL (3.5-7.2)
[2017-08-29 14:43] LABS: C REACTIVE PROTEIN QUANTITATIV 3.06 MG/DL (0.00-0.30)
== END ==
DX: M25.561 Pain in right knee (principal)

== ENCOUNTER → 2017-08-31 | Outpatient (REF) ==
[2017-08-31 15:57] LABS: HEMOGLOBIN 10.3 g/dl (14.0-18.0); MEAN CORPUSCULAR HEMOGLOBIN 28.1 pg (27.0-33.0); MEAN CORPUSCULAR HGB CONC 31.2 g/dl (32.0-36.5); MEAN CORPUSCULAR VOLUME 89.9 fl (80.0-96.0); PLATELET COUNT, AUTOMATED 321 10^3/uL (150-450); RED BLOOD COUNT 3.67 10^6/uL (4.30-6.10); RED CELL DISTRIBUTION WIDTH 13.2 % (11.5-14.5); WHITE BLOOD COUNT 6.4 10^3/uL (4.0-10.0)
[2017-08-31 16:17] LABS: ANION GAP 9 MEQ/L (8-16); BLOOD UREA NITROGEN 29 MG/DL (7-18); C REACTIVE PROTEIN QUANTITATIV 3.08 MG/DL (0.00-0.30); CALCIUM LEVEL 8.8 MG/DL (8.8-10.2); CARBON DIOXIDE LEVEL 26 MEQ/L (21-32); CHLORIDE LEVEL 103 MEQ/L (98-107); CREATININE FOR GFR 1.23 MG/DL (0.70-1.30); GLOMERULAR FILTRATION RATE > 60.0 (>42); GLUCOSE, FASTING 102 MG/DL (70-100); SODIUM LEVEL 138 MEQ/L (136-145)
[2017-08-31 16:26] LABS: ERYTHROCYTE SEDIMENTATION RATE 73 mm/hr (0-20)
== END ==
DX: M25.561 Pain in right knee (principal)

== ENCOUNTER → 2017-10-18 | Outpatient (REF) | payer MEDICARE, OTHER ==
[2017-10-18 18:32] LABS: ALBUMIN 3.6 GM/DL (3.2-5.2); ALBUMIN/GLOBULIN RATIO 0.86 (1.00-1.93); ALKALINE PHOSPHATASE 92 U/L (45-117); ALT/SGPT 23 U/L (12-78); ANION GAP 4 MEQ/L (8-16); AST/SGOT 19 U/L (7-37); BILIRUBIN,TOTAL 0.4 MG/DL (0.2-1.0); BLOOD UREA NITROGEN 24 MG/DL (7-18); CALCIUM LEVEL 9.1 MG/DL (8.8-10.2); CARBON DIOXIDE LEVEL 31 MEQ/L (21-32); CHLORIDE LEVEL 104 MEQ/L (98-107); CREATININE FOR GFR 1.23 MG/DL (0.70-1.30); GLOMERULAR FILTRATION RATE > 60.0 (>42); GLUCOSE, FASTING 92 MG/DL (70-100); MAGNESIUM LEVEL 2.2 MG/DL (1.8-2.4); POTASSIUM SERUM 4.6 MEQ/L (3.5-5.1); PSA SCREENING 0.15 NG/ML (< 4.0); SODIUM LEVEL 139 MEQ/L (136-145); TOTAL PROTEIN 7.8 GM/DL (6.4-8.2)
[2017-10-18 18:37] LABS: PTH INTACT 57.6 PG/ML (18.5-88.0); TOTAL 25(OH) VITAMIN D 21.6 NG/ML (30.0-100.0); VITAMIN B12 LEVEL 459 PG/ML (247-911)
[2017-10-18 18:43] LABS: BASO % 0.4 % (0.0-1.0); EOS # 0.3 10^3/uL (0.0-0.50); EOS % 4.2 % (0.0-3.0); HEMOGLOBIN 11.7 g/dl (13.5-17.5); IMMATURE GRANULOCYTE % 0.1 % (0-3.0); LYMPH # 1.3 10^3/uL (1.5-4.5); LYMPH % 17.7 % (24.0-44.0); MEAN CORPUSCULAR HGB CONC 31.6 g/dl (32.0-36.5); MEAN CORPUSCULAR VOLUME 91.6 fl (80.0-96.0); MONO # 0.8 10^3/uL (0.0-0.8); MONO % 10.8 % (0.0-5.0); NEUTROPHILS # 4.9 10^3/uL (1.8-7.7); NEUTROPHILS % 66.8 % (36.0-66.0); PLATELET COUNT, AUTOMATED 323 10^3/uL (150-450); RED BLOOD COUNT 4.04 10^6/uL (4.30-6.10); RED CELL DISTRIBUTION WIDTH 13.5 % (11.5-14.5); RETIC HEMOGLOBIN EQUIVALENT 33.8 pg (24-36); RETICULOCYTE # 36.8 10^9/L (17-77); RETICULOCYTE % 0.9 % (0.5-1.5); WHITE BLOOD COUNT 7.4 10^3/uL (4.0-10.0)
[2017-10-19 11:25] LABS: ALBUMIN 4.03 GM/DL (3.29-5.55); ALBUMIN % 51.7 % (55.8-66.1); ALPHA-1-GLOBULIN % 4.5 % (2.9-4.9); ALPHA-1-GLOBULINS 0.35 GM/DL (0.17-0.41); ALPHA-2-GLOBULINS % 10.3 % (7.1-11.8); BETA-1-GLOBULINS 0.41 GM/DL (0.28-0.60); BETA-1-GLOBULINS % 5.3 % (4.7-7.2); BETA-2-GLOBULINS 0.41 GM/DL (0.19-0.55); BETA-2-GLOBULINS % 5.3 % (3.2-6.5); GAMMA GLOBULIN % 22.9 % (11.1-18.8); GAMMA GLOBULINS 1.79 GM/DL (0.65-1.58)
[2017-10-21 00:09] LABS: FREE KAPPA LIGHT CHAINS SERUM 57.2 mg/L (3.3-19.4); FREE LAMBDA LIGHT CHAINS SERUM 67.2 mg/L (5.7-26.3); KAPPA/LAMBDA RATIO SERUM 0.85 (0.26-1.65)
== END ==
LOC: M SFHCPLAZ 15:06
DX: N18.3 Chronic kidney disease, stage 3 (moderate) (principal); D50.9 Iron deficiency anemia, unspecified; N40.1 Benign prostatic hyperplasia with lower urinary tract symptoms; D47.2 Monoclonal gammopathy
CPT/HCPCS: 83735

== ENCOUNTER → 2017-10-31 | Outpatient (CLI) | payer MEDICARE, BC, OTHER | LOC: M RAD 14:44 | DX: Z12.2 Encounter for screening for malignant neoplasm of respiratory organs (principal); Z87.891 Personal history of nicotine dependence | CPT/HCPCS: G0297 ==

== ENCOUNTER 2018-02-13 23:18 | Inpatient (IN) | payer MEDICARE, BC, OTHER ==
[2018-02-14 01:12] LABS: BASO % 0.2 % (0.0-1.0); EOS # 0.1 10^3/uL (0.0-0.50); EOS % 1.1 % (0.0-3.0); HEMATOCRIT 44.3 % (42.0-52.0); HEMOGLOBIN 14.8 g/dl (13.5-17.5); IMMATURE GRANULOCYTE % 0.3 % (0-3.0); LYMPH # 0.6 10^3/uL (1.5-4.5); LYMPH % 4.7 % (24.0-44.0); MEAN CORPUSCULAR HGB CONC 33.4 g/dl (32.0-36.5); MEAN CORPUSCULAR VOLUME 95.7 fl (80.0-96.0); MONO # 0.9 10^3/uL (0.0-0.8); MONO % 6.6 % (0.0-5.0); NEUTROPHILS # 11.6 10^3/uL (1.8-7.7); NEUTROPHILS % 87.1 % (36.0-66.0); PLATELET COUNT, AUTOMATED 308 10^3/uL (150-450); RED BLOOD COUNT 4.63 10^6/uL (4.30-6.10); RED CELL DISTRIBUTION WIDTH 12.8 % (11.5-14.5); WHITE BLOOD COUNT 13.3 10^3/uL (4.0-10.0)
[2018-02-14] MEDS ORDERED: ISOVUE-370 76% 100ML VIAL (Q9967) As Ordered (01:18)
[2018-02-14] MEDS: ONDANSETRON 4MG/2ML VIAL (J2405) IV (01:23)
[2018-02-14] MEDS: NS 1,000 ML IV (01:23)
[2018-02-14] MEDS: MORPHINE 4 MG/ML 1ML VIAL/SYRINGE (J2270) IV ×2 (01:24→06:42)
[2018-02-14 01:35] LABS: ALBUMIN 4.1 GM/DL (3.2-5.2); ALBUMIN/GLOBULIN RATIO 0.84 (1.00-1.93); ALKALINE PHOSPHATASE 94 U/L (45-117); ALT/SGPT 27 U/L (12-78); AMYLASE 45 U/L (25-115); ANION GAP 6 MEQ/L (8-16); AST/SGOT 19 U/L (7-37); BILIRUBIN,DIRECT 0.2 MG/DL (0.0-0.2); BILIRUBIN,TOTAL 0.7 MG/DL (0.2-1.0); BLOOD UREA NITROGEN 29 MG/DL (7-18); CALCIUM LEVEL 10.2 MG/DL (8.8-10.2); CARBON DIOXIDE LEVEL 31 MEQ/L (21-32); CHLORIDE LEVEL 101 MEQ/L (98-107); CREATININE FOR GFR 1.41 MG/DL (0.70-1.30); GLUCOSE, FASTING 147 MG/DL (70-100); LIPASE 95 U/L (73-393); POTASSIUM SERUM 3.9 MEQ/L (3.5-5.1); SODIUM LEVEL 138 MEQ/L (136-145)
[2018-02-14] MEDS ORDERED: NORCO, ANEXSIA 5/325MG TABLET (HYDROcodone/ACETAMINOPHEN) PO (03:30)
[2018-02-14] MEDS: LR 1,000 ML IV ×4 (05:13→21:29)
[2018-02-14] MEDS: NORCO, ANEXSIA 5/325MG TABLET (HYDROcodone/ACETAMINOPHEN) PO (05:14)
[2018-02-14] MEDS: ENOXAPARIN 40 MG/0.4 ML SYRINGE (J1650) SC (08:59)
[2018-02-14] MEDS: PANTOPRAZOLE 40MG INJ (PROTONIX) (C9113) IV (08:59)
[2018-02-14] MEDS: SENOKOT S TAB PO ×2 (09:00→20:16)
[2018-02-14] MEDS ORDERED: PILL CRUSHER/CUTTER 1 EACH XX (09:00)
[2018-02-14] MEDS: FINASTERIDE 5 MG TAB PO (09:00)
[2018-02-14] MEDS: amLODIPine 5 MG TAB PO ×2 (09:00→20:17)
[2018-02-14] MEDS: LOSARTAN 50 MG TAB PO (09:01)
[2018-02-14] MEDS: VITAMIN B COMPLEX/VIT C CAP PO (09:01)
[2018-02-14] MEDS: BISACODYL 10 MG SUPP PR (15:31)
[2018-02-14] MEDS: diphenhydrAMINE 50 MG CAP PO (20:16)
[2018-02-14] MEDS: AMITRIPTYLINE 50 MG TAB PO (20:17)
[2018-02-15] MEDS: zolPIDEM TARTRATE 5 MG TAB PO ×2 (00:33→21:40)
[2018-02-15] MEDS: NICOTINE 14 MG/24 HR TRANSDERMAL TD (00:33)
[2018-02-15] MEDS: CHLORASEPTIC SPRAY MT (00:34)
[2018-02-15] MEDS: NORCO, ANEXSIA 5/325MG TABLET (HYDROcodone/ACETAMINOPHEN) PO ×3 (01:32→21:39)
[2018-02-15] MEDS: CEPACOL LOZENGE PO ×2 (03:54→09:36)
[2018-02-15] MEDS: LR 1,000 ML IV (04:33)
[2018-02-15 05:07] LABS: BASO % 0.3 % (0.0-1.0); EOS # 0.1 10^3/uL (0.0-0.50); EOS % 0.8 % (0.0-3.0); HEMATOCRIT 38.4 % (42.0-52.0); IMMATURE GRANULOCYTE % 0.3 % (0-3.0); LYMPH % 9.6 % (24.0-44.0); MEAN CORPUSCULAR HEMOGLOBIN 32.2 pg (27.0-33.0); MEAN CORPUSCULAR HGB CONC 33.1 g/dl (32.0-36.5); MEAN CORPUSCULAR VOLUME 97.5 fl (80.0-96.0); MONO # 0.9 10^3/uL (0.0-0.8); MONO % 8.6 % (0.0-5.0); NEUTROPHILS % 80.4 % (36.0-66.0); PLATELET COUNT, AUTOMATED 256 10^3/uL (150-450); RED BLOOD COUNT 3.94 10^6/uL (4.30-6.10); RED CELL DISTRIBUTION WIDTH 12.7 % (11.5-14.5)
[2018-02-15 05:22] LABS: ANION GAP 11 MEQ/L (8-16); BLOOD UREA NITROGEN 24 MG/DL (7-18); CALCIUM LEVEL 9.3 MG/DL (8.8-10.2); CARBON DIOXIDE LEVEL 26 MEQ/L (21-32); CHLORIDE LEVEL 106 MEQ/L (98-107); CREATININE FOR GFR 0.98 MG/DL (0.70-1.30); GLOMERULAR FILTRATION RATE > 60.0 (>42); GLUCOSE, FASTING 93 MG/DL (70-100); HEMOGLOBIN 12.7 g/dl (13.5-17.5); POTASSIUM SERUM 3.4 MEQ/L (3.5-5.1); SODIUM LEVEL 143 MEQ/L (136-145)
[2018-02-15] MEDS ORDERED: KCL 20MEQ IN 100ML SWI (KRUN) 20 MEQ in APPROPRIATE DILUENT 1 EA IV (06:00)
[2018-02-15] MEDS: KCL 10MEQ/100ML SWI (KRUN) 10 MEQ in APPROPRIATE DILUENT 1 EA IV (06:27)
[2018-02-15] MEDS ORDERED: INFLUENZA VIRUS VACCINE HIGH DOSE 0.5 ML SYRINGE (90662) IM (09:00)
[2018-02-15] MEDS: VITAMIN B COMPLEX/VIT C CAP PO (09:36)
[2018-02-15] MEDS: ENOXAPARIN 40 MG/0.4 ML SYRINGE (J1650) SC (09:36)
[2018-02-15] MEDS: PANTOPRAZOLE 40MG INJ (PROTONIX) (C9113) IV (09:36)
[2018-02-15] MEDS: LOSARTAN 50 MG TAB PO (09:36)
[2018-02-15] MEDS: FINASTERIDE 5 MG TAB PO (09:37)
[2018-02-15] MEDS: amLODIPine 5 MG TAB PO ×2 (09:37→20:11)
[2018-02-15] MEDS: SENOKOT S TAB PO ×2 (09:37→20:11)
[2018-02-15] MEDS: KCL 20MEQ IN D5/0.45NS 1000ML 1,000 ML IV ×2 (10:44→21:16)
[2018-02-15] MEDS: FLUTICASONE PROP 0.05% NASAL SPRAY 16 GM (FLONASE) NARES (12:24)
[2018-02-15] MEDS: TERAZOSIN 5 MG CAP PO (12:30)
[2018-02-15] MEDS: AMITRIPTYLINE 50 MG TAB PO (20:11)
[2018-02-15] MEDS: diphenhydrAMINE 50 MG CAP PO (20:11)
[2018-02-15] MEDS: NICOTINE 21MG/24HR 1 EA TRANSDERMAL TD (21:39)
[2018-02-16] MEDS: ACETAMINOPHEN TAB 650MG DOSE (2X325MG) PO (04:38)
[2018-02-16 05:30] LABS: BASO % 0.3 % (0.0-1.0); EOS # 0.2 10^3/uL (0.0-0.50); EOS % 2.4 % (0.0-3.0); HEMATOCRIT 35.5 % (42.0-52.0); HEMOGLOBIN 11.7 g/dl (13.5-17.5); IMMATURE GRANULOCYTE % 0.3 % (0-3.0); LYMPH % 11.5 % (24.0-44.0); MEAN CORPUSCULAR HEMOGLOBIN 31.8 pg (27.0-33.0); MEAN CORPUSCULAR VOLUME 96.5 fl (80.0-96.0); MONO % 10.8 % (0.0-5.0); NEUTROPHILS # 6.6 10^3/uL (1.8-7.7); NEUTROPHILS % 74.7 % (36.0-66.0); PLATELET COUNT, AUTOMATED 208 10^3/uL (150-450); RED BLOOD COUNT 3.68 10^6/uL (4.30-6.10); RED CELL DISTRIBUTION WIDTH 12.7 % (11.5-14.5); WHITE BLOOD COUNT 8.8 10^3/uL (4.0-10.0)
[2018-02-16 05:47] LABS: ANION GAP 8 MEQ/L (8-16); BLOOD UREA NITROGEN 22 MG/DL (7-18); CALCIUM LEVEL 8.7 MG/DL (8.8-10.2); CARBON DIOXIDE LEVEL 28 MEQ/L (21-32); CHLORIDE LEVEL 107 MEQ/L (98-107); CREATININE FOR GFR 0.96 MG/DL (0.70-1.30); GLOMERULAR FILTRATION RATE > 60.0 (>42); GLUCOSE, FASTING 108 MG/DL (70-100); POTASSIUM SERUM 3.6 MEQ/L (3.5-5.1); SODIUM LEVEL 143 MEQ/L (136-145)
[2018-02-16] MEDS: KCL 20MEQ IN D5/0.45NS 1000ML 1,000 ML IV ×2 (08:00→16:40)
[2018-02-16] MEDS: PANTOPRAZOLE 40MG INJ (PROTONIX) (C9113) IV (08:44)
[2018-02-16] MEDS: ENOXAPARIN 40 MG/0.4 ML SYRINGE (J1650) SC (08:44)
[2018-02-16] MEDS: VITAMIN B COMPLEX/VIT C CAP PO (08:45)
[2018-02-16] MEDS: LOSARTAN 50 MG TAB PO (08:45)
[2018-02-16] MEDS: FINASTERIDE 5 MG TAB PO (08:46)
[2018-02-16] MEDS: TERAZOSIN 5 MG CAP PO (08:46)
[2018-02-16] MEDS: amLODIPine 5 MG TAB PO ×2 (08:46→21:08)
[2018-02-16] MEDS: SENOKOT S TAB PO ×2 (08:46→21:08)
[2018-02-16] MEDS: FLUTICASONE PROP 0.05% NASAL SPRAY 16 GM (FLONASE) NARES (08:47)
[2018-02-16] MEDS ORDERED: NICOTINE 21MG/24HR 1 EA TRANSDERMAL TD (09:00)
[2018-02-16] MEDS: NORCO, ANEXSIA 5/325MG TABLET (HYDROcodone/ACETAMINOPHEN) PO (15:09)
[2018-02-16] MEDS ORDERED: INFLUENZA VIRUS VACCINE HIGH DOSE 0.5 ML SYRINGE (90662) IM (16:00)
[2018-02-16] MEDS: INFLUENZA VIRUS VACCINE HIGH DOSE 0.5 ML SYRINGE (90662) IM (16:39)
[2018-02-16] MEDS: AMITRIPTYLINE 50 MG TAB PO (21:08)
[2018-02-16] MEDS: NICOTINE 21MG/24HR 1 EA TRANSDERMAL TD (21:09)
[2018-02-17] MEDS: KCL 20MEQ IN D5/0.45NS 1000ML 1,000 ML IV ×2 (03:11→12:06)
[2018-02-17 05:24] LABS: BASO % 0.3 % (0.0-1.0); EOS # 0.4 10^3/uL (0.0-0.50); EOS % 5.2 % (0.0-3.0); HEMATOCRIT 36.3 % (42.0-52.0); HEMOGLOBIN 11.9 g/dl (13.5-17.5); IMMATURE GRANULOCYTE % 0.1 % (0-3.0); LYMPH # 1.1 10^3/uL (1.5-4.5); LYMPH % 15.6 % (24.0-44.0); MEAN CORPUSCULAR HEMOGLOBIN 31.8 pg (27.0-33.0); MEAN CORPUSCULAR HGB CONC 32.8 g/dl (32.0-36.5); MEAN CORPUSCULAR VOLUME 97.1 fl (80.0-96.0); MONO # 0.8 10^3/uL (0.0-0.8); MONO % 11.4 % (0.0-5.0); NEUTROPHILS # 4.8 10^3/uL (1.8-7.7); NEUTROPHILS % 67.4 % (36.0-66.0); PLATELET COUNT, AUTOMATED 219 10^3/uL (150-450); RED BLOOD COUNT 3.74 10^6/uL (4.30-6.10); RED CELL DISTRIBUTION WIDTH 12.3 % (11.5-14.5); WHITE BLOOD COUNT 7.1 10^3/uL (4.0-10.0)
[2018-02-17 05:38] LABS: ANION GAP 9 MEQ/L (8-16); BLOOD UREA NITROGEN 12 MG/DL (7-18); CALCIUM LEVEL 8.4 MG/DL (8.8-10.2); CARBON DIOXIDE LEVEL 25 MEQ/L (21-32); CHLORIDE LEVEL 108 MEQ/L (98-107); CREATININE FOR GFR 0.94 MG/DL (0.70-1.30); GLOMERULAR FILTRATION RATE > 60.0 (>42); GLUCOSE, FASTING 94 MG/DL (70-100); POTASSIUM SERUM 3.7 MEQ/L (3.5-5.1); SODIUM LEVEL 142 MEQ/L (136-145)
[2018-02-17] MEDS: PANTOPRAZOLE 40MG INJ (PROTONIX) (C9113) IV (08:56)
[2018-02-17] MEDS: ENOXAPARIN 40 MG/0.4 ML SYRINGE (J1650) SC (08:56)
[2018-02-17] MEDS: TERAZOSIN 5 MG CAP PO (08:57)
[2018-02-17] MEDS: VITAMIN B COMPLEX/VIT C CAP PO (08:57)
[2018-02-17] MEDS: SENOKOT S TAB PO (08:57)
[2018-02-17] MEDS: FINASTERIDE 5 MG TAB PO (08:57)
[2018-02-17] MEDS: amLODIPine 5 MG TAB PO (08:57)
[2018-02-17] MEDS: FLUTICASONE PROP 0.05% NASAL SPRAY 16 GM (FLONASE) NARES (08:58)
[2018-02-17] MEDS: LOSARTAN 50 MG TAB PO (08:58)
== END 2018-02-17 15:43 | disposition home or self-care (01) | DRG 390 ==
LOC: M ED 23:18 → M ED INP 02-14 03:20 → M PCU 02-14 04:44
DX: K56.609 Unspecified intestinal obstruction, unspecified as to partial versus complete obstruction (principal); I25.10 Atherosclerotic heart disease of native coronary artery without angina pectoris; I10 Essential (primary) hypertension; F17.210 Nicotine dependence, cigarettes, uncomplicated; Z79.899 Other long term (current) drug therapy

== ENCOUNTER → 2018-03-21 | Outpatient (REF) | payer MEDICARE, OTHER ==
[2018-03-21 15:58] LABS: BASO % 0.4 % (0.0-1.0); EOS # 0.2 10^3/uL (0.0-0.50); EOS % 2.5 % (0.0-3.0); HEMOGLOBIN 13.2 g/dl (13.5-17.5); IMMATURE GRANULOCYTE % 0.4 % (0-3.0); LYMPH % 14.8 % (24.0-44.0); MEAN CORPUSCULAR HEMOGLOBIN 32.1 pg (27.0-33.0); MEAN CORPUSCULAR HGB CONC 32.2 g/dl (32.0-36.5); MEAN CORPUSCULAR VOLUME 99.8 fl (80.0-96.0); MONO # 0.6 10^3/uL (0.0-0.8); MONO % 9.3 % (0.0-5.0); NEUTROPHILS # 4.9 10^3/uL (1.8-7.7); NEUTROPHILS % 72.6 % (36.0-66.0); PLATELET COUNT, AUTOMATED 292 10^3/uL (150-450); RED BLOOD COUNT 4.11 10^6/uL (4.30-6.10); RED CELL DISTRIBUTION WIDTH 12.1 % (11.5-14.5); WHITE BLOOD COUNT 6.8 10^3/uL (4.0-10.0)
[2018-03-21 16:32] LABS: ERYTHROCYTE SEDIMENTATION RATE 33 mm/hr (0-20)
[2018-03-21 16:33] LABS: ALBUMIN 3.7 GM/DL (3.2-5.2); ALBUMIN/GLOBULIN RATIO 0.93 (1.00-1.93); ALKALINE PHOSPHATASE 75 U/L (45-117); ALT/SGPT 20 U/L (12-78); ANION GAP 5 MEQ/L (8-16); AST/SGOT 16 U/L (7-37); BILIRUBIN,TOTAL 0.5 MG/DL (0.2-1.0); BLOOD UREA NITROGEN 23 MG/DL (7-18); C REACTIVE PROTEIN QUANTITATIV 0.33 MG/DL (0.00-0.30); CALCIUM LEVEL 9.2 MG/DL (8.8-10.2); CARBON DIOXIDE LEVEL 31 MEQ/L (21-32); CHLORIDE LEVEL 103 MEQ/L (98-107); CREATININE FOR GFR 1.19 MG/DL (0.70-1.30); FREE T4 1.19 NG/DL (0.76-1.46); GLOMERULAR FILTRATION RATE > 60.0 (>42); GLUCOSE, FASTING 96 MG/DL (70-100); MAGNESIUM LEVEL 2.5 MG/DL (1.8-2.4); POTASSIUM SERUM 4.9 MEQ/L (3.5-5.1); SODIUM LEVEL 139 MEQ/L (136-145); THYROID STIMULATING HORMONE 0.807 uIU/ML (0.358-3.740); TOTAL PROTEIN 7.7 GM/DL (6.4-8.2)
[2018-03-24 00:25] LABS: ANA (HEP2) Negative (.); FREE KAPPA LIGHT CHAINS SERUM 36.5 mg/L (3.3-19.4); FREE LAMBDA LIGHT CHAINS SERUM 52.8 mg/L (5.7-26.3); KAPPA/LAMBDA RATIO SERUM 0.69 (0.26-1.65)
== END ==
LOC: M SFHCPLAZ 12:35
DX: D47.2 Monoclonal gammopathy (principal); R73.01 Impaired fasting glucose; Z79.899 Other long term (current) drug therapy
CPT/HCPCS: 83735

== ENCOUNTER → 2018-07-18 | Outpatient (REF) | payer MEDICARE, OTHER ==
[~2018-07-18] MED LIST changes: +ALB2.5NEB NEB; -AMLO5TAB2 PO; +AMLO5TAB6 PO; +B COTAB5 PO; +BISA10SU PR; +BISA10SU4 PR; +CEFT2ADD INJ; +DICL13PA TOP; +DIPH50TA3 PO; +IPRA0.00 NEB; -LOSA100T36 PO; +LOSA100T50 PO; +META58.612 PO; +METH2.5T48 PO; +MIRT15TA3 PO; +MUPI2OI TOP; +NORCOTAB PO; +PEG1POW PO; +PRED20TA PO; +PSYLPOW4 PO; +TYLE500T78 PO; +VITABCTA PO
== END ==
LOC: M SFHCPLAZ 14:44
PROVIDERS: ATTEND Family Medicine
DX: Z53.9 Procedure and treatment not carried out, unspecified reason (principal)

== ENCOUNTER → 2018-07-19 | Outpatient (REF) | payer MEDICARE, OTHER ==
[2018-07-19 12:22] LABS: BASO % 0.4 % (0.0-1.0); EOS # 0.4 10^3/uL (0.0-0.50); EOS % 5.5 % (0.0-3.0); HEMATOCRIT 41.7 % (42.0-52.0); HEMOGLOBIN 13.7 g/dl (13.5-17.5); LYMPH # 1.1 10^3/uL (1.5-4.5); MEAN CORPUSCULAR HEMOGLOBIN 32.2 pg (27.0-33.0); MEAN CORPUSCULAR HGB CONC 32.9 g/dl (32.0-36.5); MEAN CORPUSCULAR VOLUME 98.1 fl (80.0-96.0); MONO # 0.8 10^3/uL (0.0-0.8); MONO % 11.3 % (0.0-5.0); NEUTROPHILS # 4.4 10^3/uL (1.8-7.7); NEUTROPHILS % 65.7 % (36.0-66.0); PLATELET COUNT, AUTOMATED 302 10^3/uL (150-450); RED BLOOD COUNT 4.25 10^6/uL (4.30-6.10); WHITE BLOOD COUNT 6.7 10^3/uL (4.0-10.0)
[2018-07-19 12:50] LABS: HEMOGLOBIN A1c 5.9 %
[2018-07-19 12:56] LABS: ALT/SGPT 24 U/L (12-78); BILIRUBIN,TOTAL 0.7 MG/DL (0.2-1.0); BLOOD UREA NITROGEN 22 MG/DL (7-18); CALCIUM LEVEL 9.3 MG/DL (8.8-10.2); CARBON DIOXIDE LEVEL 27 MEQ/L (21-32); CHLORIDE LEVEL 102 MEQ/L (98-107); CHOLESTEROL LEVEL 298 MG/DL (<200); CHOLESTEROL RISK RATIO 3.973 (<5); CREATININE FOR GFR 1.21 MG/DL (0.70-1.30); FREE T4 1.28 NG/DL (0.76-1.46); GLOMERULAR FILTRATION RATE > 60.0 (>42); GLUCOSE, FASTING 94 MG/DL (70-100); HDL CHOLESTEROL 75 MG/DL (>40); LDL CHOLESTEROL 212 MG/DL (<100); NON-HDL-C 223 MG/DL; POTASSIUM SERUM 4.5 MEQ/L (3.5-5.1); SODIUM LEVEL 137 MEQ/L (136-145); TOTAL PROTEIN 8.1 GM/DL (6.4-8.2); TRIGLYCERIDES LEVEL 54 MG/DL (<150)
[2018-07-19 12:58] LABS: TOTAL 25(OH) VITAMIN D 17.6 NG/ML (30.0-100.0)
[2018-07-19 12:59] LABS: PTH INTACT 55.3 PG/ML (18.5-88.0)
[2018-07-20 12:53] LABS: ALBUMIN % 55.1 % (55.8-66.1); ALPHA-1-GLOBULIN % 4.1 % (2.9-4.9); ALPHA-2-GLOBULINS % 9.9 % (7.1-11.8); BETA-1-GLOBULINS % 5.5 % (4.7-7.2); BETA-2-GLOBULINS % 4.9 % (3.2-6.5)
[2018-07-20 12:54] LABS: ALBUMIN 4.46 GM/DL (3.29-5.55); ALPHA-1-GLOBULINS 0.33 GM/DL (0.17-0.41); BETA-1-GLOBULINS 0.45 GM/DL (0.28-0.60); GAMMA GLOBULIN % 20.5 % (11.1-18.8); GAMMA GLOBULINS 1.66 GM/DL (0.65-1.58)
== END ==
LOC: M LABDRAWP 09:51
PROVIDERS: ATTEND Family Medicine
DX: N18.3 Chronic kidney disease, stage 3 (moderate) (principal); R73.01 Impaired fasting glucose; E78.2 Mixed hyperlipidemia; E55.9 Vitamin D deficiency, unspecified; D47.2 Monoclonal gammopathy

== ENCOUNTER → 2018-07-24 | Outpatient (REF) | payer MEDICARE, OTHER ==
[2018-07-24 12:37] LABS: CHOLESTEROL RISK RATIO 3.785 (<5)
== END ==
LOC: M SFHCPLAZ 09:59
PROVIDERS: ATTEND Family Medicine
DX: E78.2 Mixed hyperlipidemia (principal)

== ENCOUNTER → 2018-08-02 | Outpatient (CLI) | payer MEDICARE, OTHER ==
--- NOTE | 2018-08-02 13:53 | REP ---
Chest two views HISTORY: Cough Comparison: 06/29/2017 Linear densities are present in the left lower lobe consistent with atelectasis or scar. The right lung is clear. There is blunting of the left costophrenic angle due to pleural thickening or small pleural effusion. The heart is normal in size. The pulmonary vasculature is normal in appearance. The bony structure is intact. IMPRESSION: 1. Left lower lobe atelectasis or scar. 2. There is blunting of the left costophrenic angle due to pleural thickening or a small pleural effusion. Electronically Signed by Romulo Grimaldo MD 08/02/2018 01:44 P
== END ==
LOC: M WUC 12:31
PROVIDERS: ATTEND Nurse Practitioner Family
DX: R05 Cough (principal); J98.4 Other disorders of lung

== ENCOUNTER 2018-09-29 03:43 | Inpatient (IN) | payer MEDICARE, BC, OTHER ==
[~2018-09-29] VITALS: Ht 170.2 cm; Wt 70.8 kg
[~2018-09-29 03:43] MED LIST changes: +HYDR-3715 PO; -NORCOTAB PO
[2018-09-29] MEDS ORDERED: ONDANSETRON 4MG/2ML VIAL (J2405) IV ONE ×2 (04:30→06:15)
[2018-09-29 04:37] LABS: BASO % 0.2 % (0.0-1.0); EOS # 0.2 10^3/uL (0.0-0.50); EOS % 1.3 % (0.0-3.0); HEMATOCRIT 42.5 % (42.0-52.0); HEMOGLOBIN 13.9 g/dl (13.5-17.5); LYMPH # 0.5 10^3/uL (1.5-4.5); LYMPH % 3.3 % (24.0-44.0); MEAN CORPUSCULAR HEMOGLOBIN 31.5 pg (27.0-33.0); MEAN CORPUSCULAR HGB CONC 32.7 g/dl (32.0-36.5); MEAN CORPUSCULAR VOLUME 96.4 fl (80.0-96.0); NEUTROPHILS # 12.6 10^3/uL (1.8-7.7); NEUTROPHILS % 87.9 % (36.0-66.0); PLATELET COUNT, AUTOMATED 275 10^3/uL (150-450); RED BLOOD COUNT 4.41 10^6/uL (4.30-6.10); WHITE BLOOD COUNT 14.3 10^3/uL (4.0-10.0)
[2018-09-29] MEDS ORDERED: MILKSUS3 PO (04:49)
[2018-09-29] MEDS ORDERED: ROSU20TA4 PO (04:49)
[2018-09-29 04:52] LABS: INR 1.01; PROTHROMBIN TIME 13.4 SECONDS (12.1-14.4)
[2018-09-29 04:53] LABS: PARTIAL THROMBOPLASTIN TIME 37.7 SECONDS (25.4-37.6)
[2018-09-29 04:58] LABS: ALBUMIN 4.2 GM/DL (3.2-5.2); BILIRUBIN,DIRECT 0.2 MG/DL (0.0-0.2); BILIRUBIN,TOTAL 0.6 MG/DL (0.2-1.0); CALCIUM LEVEL 9.1 MG/DL (8.8-10.2); CREATININE FOR GFR 1.69 MG/DL (0.70-1.30); GLOMERULAR FILTRATION RATE 42.2 (>42); POTASSIUM SERUM 4.4 MEQ/L (3.5-5.1); TOTAL PROTEIN 7.8 GM/DL (6.4-8.2)
[2018-09-29] MEDS ORDERED: NS 500 ML IV ONE ×2 (05:15→08:00)
[2018-09-29] MEDS ORDERED: METOCLOPRAMIDE INJ 10MG/2ML VIAL (J2765) IV ONE (05:15)
[2018-09-29] MEDS: GASTROGRAFIN SOLUTION 30ML PO SCH ×2 (06:00→06:30)
[2018-09-29] MEDS ORDERED: MORPHINE 2 MG/ML 1ML SYRINGE (J2270) IV ONE ×2 (06:15→08:00)
[2018-09-29] MEDS ORDERED: B COTAB3 PO (08:15)
[2018-09-29] MEDS ORDERED: ACET-897 PO (08:15)
[2018-09-29] MEDS ORDERED: SOMINEX PO (08:15)
--- NOTE | 2018-09-29 08:22 | REP ---
CT of the abdomen and pelvis without IV or bowel contrast: Comparison is 02/14/2018. Within the visualized lower lung faria. There are bilateral lower lobe parenchymal densities, unchanged, likely bilateral lower lobe fibrosis/scarring. There are small bilateral pleural effusions versus lower lobe with pleural thickening, unchanged. The unenhanced hepatic parenchyma is homogeneous. The enhancing nodular densities in the hepatic right lobe on the comparison study are isointense with the hepatic parenchyma on the nonenhanced study today and therefore not visible. The gallbladder, pancreas and spleen are unremarkable. The adrenals are unremarkable. There is bilateral renal cortical atrophy, unchanged. There is bilateral hydronephrosis and hydroureter to the urinary bladder. This is unchanged. 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 There are no bladder calculi. There is calcified atheroma in the aorta. The aorta is tortuous. The aorta is otherwise unremarkable. There is marked distension of the proximal and mid small bowel. The distal small bowel is nondistended. This suggests small bowel obstruction. This is unchanged from the prior study. There is no colonic distension. There is a circumferential suture line in the sigmoid colon compatible with partial sigmoid resection, unchanged. There is no ascites. No adenopathy. Pelvis: The bladder is distended but otherwise unremarkable. No bladder wall masses or polyps are identified. There is no pelvic adenopathy or ascites. There is evidence for partial sigmoid resection as described above. There are bilateral pedicle screws and stabilization rods in the lower thoracic - lumbar - upper sacral spine, unchanged. Impression: Marked distension of the proximal and mid small bowel compatible with small bowel obstruction. This is similar to the comparison study. There is no colonic distension. Partial sigmoid resection, unchanged. Chronic bilateral hydronephrosis and hydroureter. No renal or ureteral calculi are identified. The bladder is distended. This is unchanged. These findings could represent bladder outlet obstruction or bilateral UPJ strictures. There is no ascites or adenopathy. The previous suspected hepatic hemangiomas are not visible on the current study without IV contrast. Chronic bibasilar lung scarring and pleural thickening. Thoraco - lumbar - sacral stabilization rods. Electronically Signed by Rodrigue Heard MD 09/29/2018 08:14 A
[2018-09-29] MEDS ORDERED: NS 1,000 ML IV SCH (08:45)
[2018-09-29] MEDS ORDERED: ONDANSETRON 4MG/2ML VIAL (J2405) IV PRN (10:45)
[2018-09-29] MEDS ORDERED: ACETAMINOPHEN TAB 650MG DOSE (2X325MG) PO PRN (10:45)
[2018-09-29] MEDS ORDERED: MORPHINE 4 MG/ML 1ML VIAL/SYRINGE (J2270) IV PRN (10:45)
[2018-09-29 12:30] VITALS: BP 134/72
[2018-09-29 14:00] VITALS: BP 144/75
[2018-09-29] MEDS: PANTOPRAZOLE 40MG INJ (PROTONIX) (C9113) IV SCH (14:12)
[2018-09-29] MEDS: ENOXAPARIN 30 MG/0.3 ML SYR (J1650) SC SCH (14:12)
[2018-09-29] MEDS: LR 1,000 ML IV SCH ×2 (14:13→21:09)
[2018-09-29 18:45] VITALS: BP 141/72
[2018-09-29] MEDS: AMITRIPTYLINE 50 MG TAB PO SCH (21:09)
[2018-09-29 22:00] VITALS: BP 138/72
[2018-09-30 02:00] VITALS: BP 150/82
[2018-09-30 06:00] VITALS: BP 125/72
[2018-09-30 07:18] LABS: CALCIUM LEVEL 8.8 MG/DL (8.8-10.2); CREATININE FOR GFR 1.43 MG/DL (0.70-1.30); GLOMERULAR FILTRATION RATE 51.2 (>42); POTASSIUM SERUM 4.2 MEQ/L (3.5-5.1)
--- NOTE | 2018-09-30 08:13 | HPE ---
DATE OF ADMISSION: 09/29/2018 ADMISSION DIAGNOSIS: Small bowel obstruction. HISTORY OF PRESENT ILLNESS: The patient is a pleasant 77-year-old man who presented to the emergency department at approximately 03:43 hours on the morning of September 29 complaining of abdominal pain and distention. He reported to me that his discomfort had begun at about 1 o'clock in the morning. He reported that he noted distension of his lower abdomen with increasing pain. He developed some nausea but had no vomiting. He presented to the emergency department for evaluation. He was admitted to the hospital back in February of 2018 with a very similar episode of fairly sudden onset of pain with abdominal distention. He was, on that occasion, diagnosed with an intestinal obstruction. The patient underwent a CT scan of the abdomen and pelvis in the emergency department. 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 He was noted to have a dilated fluid-filled stomach. He had multiple loops of proximal small bowel that were air and fluid-filled and quite dilated. The distal small bowel was noted to be of normal caliber. There was no free air or free fluid. His laboratory studies showed a slight elevation of his white blood cell count to 14,000 with 88% neutrophils and his chemistries showed normal electrolytes with BUN of 29 and creatinine of 1.7. I was consulted and the patient is now admitted for management of his small bowel obstruction. ALLERGIES: The patient has no reported drug allergies. MEDICATIONS: His current home medications include: - Tylenol 1000 mg p.o. t.i.d. - alfuzosin 10 mg p.o. daily - amitriptyline 50 mg p.o. q.h.s. - amlodipine 5 mg p.o. twice daily - bisacodyl 10 mg suppositories p.r.n. daily for constipation - Colace 100 mg p.o. b.i.d. - finasteride 5 mg p.o. daily - losartan 100 mg p.o. daily - Milk of Magnesia 5 mL p.o. twice daily as needed for constipation - MiraLAX one 17 gram dose p.o. daily as needed for constipation - psyllium husk one dose p.o. daily - rosuvastatin 20 mg p.o. q.h.s. - tramadol 50 mg p.o. t.i.d. - vitamin B complex one tablet daily - Sominex one tablet p.o. q.h.s. SURGICAL HISTORY: Significant for: Significant lower back surgery with a lumbar spine fusion in about 2011 and a cervical spine fusion in 2008. He has a history of a transurethral resection of the prostate and then subsequent treatment for a bladder neck stricture. He had his sigmoid colon resected in 1997. In June 2017 he had a chest tube placed for a left-sided empyema and also required arthroscopy for an infected right knee. MEDICAL HISTORY: Significant for: Hypertension. He has a history of prior tobacco use as well as a history of significant alcohol use in the past. He has benign prostatic hyperplasia. He has some anxiety. SOCIAL HISTORY: The patient is . 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 He continues to smoke daily and drinks two beers per day by his estimate. FAMILY HISTORY: Noncontributory. REVIEW OF SYSTEMS: The patient denies any history of chest pain or palpitations. He is not having a cough, wheezing or sputum production. He denies any history of deep vein thrombosis (DVT) or pulmonary embolus. He has not noticed any melena or hematochezia. He does have a history of some chronic constipation for which he uses various medications as needed. He apparently voids adequately. He does go somewhat frequently. Not having any new bone or joint issues. He does have some chronic back pain. Denies any history of seizure or stroke. PHYSICAL EXAMINATION: Physical exam shows a pleasant older man lying quietly on the stretcher in the emergency department. His most recent vital signs show him to be afebrile with a pulse in the low 90s. Blood pressure of approximately 129/71 and oxygen saturation of approximately 90. He has a nasogastric tube in place now in the right nares draining some light brown fluid. Sclerae are anicteric. Skin is warm and dry. Neck is supple without mass or cervical bruit. Heart exam shows a regular rhythm without apparent murmur. The lungs are clear to auscultation bilaterally. Abdominal exam shows an old low midline scar. There is no sign of umbilical, incisional or inguinal hernia. The lower portion of the abdomen is somewhat distended. There are a few faint bowel sounds present. There is no tympany to percussion. He does have some mild tenderness to palpation, particularly in the left midabdomen extending down into the left lower quadrant. The right side of the abdomen is without significant tenderness. No masses appreciated. He has no rebound tenderness or guarding. Extremities show palpable dorsalis pedis and radial pulses bilaterally and there is no peripheral edema. LABORATORY DATA: The patient's laboratory studies include a CBC with a differential count. This showed a white count of 14,000, hemoglobin of 14, hematocrit of 42 and platelet count of 275,000. Differential count showed 88% neutrophils, 3% lymphocytes, 7% monocytes. Chemistry profile showed normal electrolytes with a BUN of 29, creatinine 1.7 and glucose of 128. This is mildly elevated from July 19 of this year when his creatinine was 1.2. His liver function tests are all normal with a protein of 7.8 and albumin of 4.2. Lipase was 70. He had PT/PTT and INR that were normal. The CT scan of the abdomen and pelvis showed some bilateral renal cortical atrophy. There were some calcified changes in the great vessels. The proximal and mid small bowel was quite distended as noted in the history of present illness, though the distal small bowel was nondistended. Surgical sutures were noted in the sigmoid colon. There was some significant hardware in the lower spine. I did review the patient's CT scan from February 2018 and the findings were quite similar. IMPRESSION: 1. Small bowel obstruction secondary to adhesions. 2. Hypertension. 3. Benign prostatic hyperplasia. 4. Nicotine dependence. 5. Significant spine degenerative joint disease with lower spine fusion. 6. Anxiety and depression. PLAN: The patient has had an NG tube placed in the emergency department. It was reported to me that he had rapidly drained about 2 liters of fluid from the NG tube. He will receive maintenance IV fluid. I counseled the patient that he should otherwise remain n.p.o. He did not resolve his bowel obstruction in February of 2018 without the need of any surgery. I will place him on some Protonix to decrease his gastric secretions. He will be provided analgesics as necessary. He does not appear at this time to require any antibiotic coverage. I will repeat a medical profile in the morning. A KUB will also be ordered for the morning to reassess his bowel distension. The patient had an opportunity to ask questions and is agreeable with this plan.
[2018-09-30] MEDS: LR 1,000 ML IV SCH ×2 (09:42→20:01)
[2018-09-30] MEDS: ENOXAPARIN 30 MG/0.3 ML SYR (J1650) SC SCH (09:42)
[2018-09-30] MEDS: PANTOPRAZOLE 40MG INJ (PROTONIX) (C9113) IV SCH (09:42)
[2018-09-30 10:00] VITALS: BP 143/91
--- NOTE | 2018-09-30 12:38 | IPN ---
DATE: 09/30/2018 HISTORY The patient was admitted yesterday with evidence for a small bowel obstruction. He had approximately 12 hours of abdominal pain with abdominal distension. A CT scan showed dilated proximal small bowel with decompressed distal small bowel. An NG tube was placed with a large amount of return. He has been continued with the NG tube to low intermittent suction and is receiving IV maintenance fluid. He reports that he has passed some flatus but not had a bowel movement as of yet. He does have less pain today than he did yesterday. Vital signs show that he has been afebrile since admission. His pulse is in the 70s to low 90s and his blood pressure is good. Room air oxygen saturations are normal. Intake and output show that yesterday he has 300 recorded in which is clearly incorrect given the several boluses of fluid he received in the emergency department. He had 825 mL of urine recorded with 300 recorded from the NG tube after transfer to the floor. This morning he had 700 mL recorded from his NG tube. He has been taking a few ice chips. PHYSICAL EXAMINATION: The patient appears fairly comfortable. He is lying quietly in the bed. He is alert and oriented. The NG tube is in place with a small amount of murky fluid in the tubing. Heart exam shows a regular rhythm. The abdomen is somewhat flatter I think than yesterday. He does have some bowel sounds present. There is some mild tenderness to palpation in the low midline and left lower quadrant. The right side of the abdomen is soft and nontender. LABORATORY STUDIES: The patient had a medical profile this morning that shows a sodium of 140, potassium 4.2, chloride 102, CO2 of 28, BUN of 34, creatinine 1.43 and a glucose of 113. He had a flat abdominal x-ray this morning which revealed a couple of short lengths of moderately dilated small bowel in the left midabdomen. There appears to be some stool still in the right colon. Stomach appears nicely decompressed with the NG tube in place. There is some air that appears to be going down into the colon more distally. IMPRESSION: The patient has had some improvement with decreased pain and he has had some flatus but no BM. He remains somewhat tender consistent with some degree of persistent obstruction. PLAN: The patient will be continued on his IV fluid. He will be encouraged to be up out of bed to a chair today or to ambulate if able. We will reassess him tomorrow and hope that he will continue to show signs of resolution of his bowel obstruction.
[2018-09-30 13:40] VITALS: BP 128/63
[2018-09-30] MEDS: AMITRIPTYLINE 50 MG TAB PO SCH (20:01)
[2018-09-30 22:00] VITALS: BP 158/68
[2018-09-30] MEDS: RAMELTEON 8 MG TAB (ROZEREM) PO SCH (23:00)
[2018-10-01 02:00] VITALS: BP 140/68
[2018-10-01 06:00] VITALS: BP 159/72
[2018-10-01 07:44] LABS: BASO % 0.1 % (0.0-1.0); EOS % 0.1 % (0.0-3.0); HEMOGLOBIN 12.1 g/dl (13.5-17.5); LYMPH # 0.5 10^3/uL (1.5-4.5); LYMPH % 6.8 % (24.0-44.0); MEAN CORPUSCULAR HEMOGLOBIN 32.3 pg (27.0-33.0); MEAN CORPUSCULAR HGB CONC 32.7 g/dl (32.0-36.5); MEAN CORPUSCULAR VOLUME 98.7 fl (80.0-96.0); MONO % 12.7 % (0.0-5.0); NEUTROPHILS # 6.3 10^3/uL (1.8-7.7); PLATELET COUNT, AUTOMATED 207 10^3/uL (150-450); RED BLOOD COUNT 3.75 10^6/uL (4.30-6.10); WHITE BLOOD COUNT 7.8 10^3/uL (4.0-10.0)
[2018-10-01 08:11] LABS: BLOOD UREA NITROGEN 37 MG/DL (7-18); CARBON DIOXIDE LEVEL 31 MEQ/L (21-32); CHLORIDE LEVEL 102 MEQ/L (98-107); GLOMERULAR FILTRATION RATE > 60.0 (>42); GLUCOSE, FASTING 113 MG/DL (70-100); POTASSIUM SERUM 3.9 MEQ/L (3.5-5.1); SODIUM LEVEL 140 MEQ/L (136-145)
[2018-10-01] MEDS: ENOXAPARIN 30 MG/0.3 ML SYR (J1650) SC SCH (08:51)
[2018-10-01] MEDS: LR 1,000 ML IV SCH (08:52)
[2018-10-01] MEDS: PANTOPRAZOLE 40MG INJ (PROTONIX) (C9113) IV SCH (08:52)
--- NOTE | 2018-10-01 09:10 | REP ---
Supine abdomen single AP view: Comparison is the CT of the abdomen pelvis dated 09/29/2018. There has been interval placement of a nasogastric tube. There is a dilated small bowel loop in the left upper quadrant . There is intraluminal air in few other small bowel loops that are minimally distended. On the comparison CT, the majority of the distended bowel loops are fluid filled, therefore, would not be visible on plain films. There are multilevel laminectomies throughout the lumbar spine. There are bilateral thoracolumbar-sacral stabilization rods, unchanged. Electronically Signed by Rodrigue Heard MD 09/30/2018 08:28 A
[2018-10-01 10:00] VITALS: BP 162/67
[2018-10-01 14:00] VITALS: BP 160/72
[2018-10-01 18:00] VITALS: BP 137/72
[2018-10-01] MEDS: AMITRIPTYLINE 50 MG TAB PO SCH (20:06)
[2018-10-01] MEDS: RAMELTEON 8 MG TAB (ROZEREM) PO SCH (20:06)
[2018-10-01 22:00] VITALS: BP 158/72
[2018-10-02 02:00] VITALS: BP 160/66
[2018-10-02 06:00] VITALS: BP 157/76
[2018-10-02 10:00] VITALS: BP 141/57
--- NOTE | 2018-10-02 10:00 | REP ---
ABDOMEN SERIES: Three views. HISTORY: Followup small bowel obstruction. COMPARISON STUDY: September 30, 2018. FINDINGS: Upright chest radiograph demonstrates an NG tube entering the left upper quadrant. There is pleuroparenchymal fibrosis in the lung bases bilaterally, left more so than right. Heart is not enlarged. The aorta somewhat tortuous. Supine and erect views of the abdomen demonstrate surgical fixation hardware throughout the thoracolumbar spine. There are one or two loops of air-filled dilated small bowel in the left mid abdomen. There is air and stool in the proximal colon. A small quantity of stool is visible in the rectum. Bowel gas pattern is similar to September 30, 2018 study. IMPRESSION: Persistent moderate dilation of one or two loops of small bowel in the left mid abdomen. No evidence of free air. Moderate proximal colonic stool. Electronically Signed by Del Martinez MD 10/02/2018 11:36 A
[2018-10-02] MEDS: PANTOPRAZOLE 40MG INJ (PROTONIX) (C9113) IV SCH (10:25)
[2018-10-02] MEDS: LR 1,000 ML IV SCH ×2 (10:26)
[2018-10-02] MEDS: ENOXAPARIN 30 MG/0.3 ML SYR (J1650) SC SCH (10:26)
--- NOTE | 2018-10-02 11:16 | IPN ---
DATE: 10/01/2018 HISTORY: The patient was admitted on September 29 in the morning with a history of abdominal pain with some abdominal distention, nausea and vomiting. A nasogastric tube was placed with return of a large amount of fluid. A CT scan had shown changes consistent with a small bowel obstruction. He has been followed with the NG tube in place and receiving maintenance IV fluid. He reports that he has passed a small amount of flatus, but he has not had a bowel movement since admission. He has been taking some ice chips to tolerate the NG tube better. He continues with some pain, particularly in the left lower abdomen. Vital signs show that he has been afebrile over the past 24 hours. His pulse is in the 50s and 60s and his blood pressure is acceptable. Intake and output show that yesterday he had 900 mL recorded in, although this clearly under reports what should have been 1800 mL of IV fluid. He had a urine output of 1250 and an NG output of 700 recorded. PHYSICAL EXAMINATION: The patient is alert and sitting up in a chair. Sclerae are anicteric. Mucous membranes are moist. Heart exam shows a regular rate and rhythm. The abdomen is mildly protuberant. He has some bowel sounds present. Palpation reveals some mild fullness and tenderness in the left lower quadrant. The right side of the abdomen is benign to palpation. LABORATORY STUDIES: Today show a white count of 8000, hemoglobin of 12, hematocrit 37 and a platelet count of 207,000. Differential count shows 80% neutrophils, 7% lymphocytes and 13% monocytes. Chemistry profile shows sodium of 140, potassium 3.9, chloride 102, CO2 of 31, BUN of 37, creatinine 1.2 and glucose of 113. IMPRESSION: The patient has not shown any significant resolution of his small bowel obstruction. He has had some minimal flatus, but no bowel movement and remains mildly distended with some fullness and tenderness in the left lower quadrant. His NG output remains somewhat elevated. PLAN: I discussed with the patient that if he does not show some improvement soon we should consider surgery to alleviate his obstruction. He will be allowed to continue a few ice chips, but was counseled against taking too much. He is encouraged to be up ambulating. We will continue the NG tube. I will obtain a flat and upright abdominal x-ray in the morning to reassess his bowel gas pattern.
[2018-10-02 14:00] VITALS: BP 165/76
--- NOTE | 2018-10-02 17:04 | IPN ---
DATE: 10/02/2018 HISTORY: The patient was admitted in the morning of 09/29/2018 with abdominal pain with distension and some nausea. A CT scan was consistent with intestinal obstruction and a nasogastric tube was placed with return of a large amount of fluid. Since then he has continued to have some tenderness in the left lower quadrant in particular. He has his NG tube in place draining small amounts of fluid. He is taking some ice chips as well. Vital signs show that he has been afebrile over the past 24 hours. His pulse is in the 50s to 70s. His blood pressure is good. Intake and output shows that yesterday he had 1000 mL recorded in although he should have 1800 mL of IV fluid based on his IV rate. He had 1400 recorded from his NG tube. There is nothing written down for his NG tube this morning although there is about 200 or 300 mL in the container currently. The patient reports that he had a bowel movement last evening and felt better. He is passing some flatus. PHYSICAL EXAMINATION: The patient is sitting up in a chair with the NG tube in place. This has minimal amount of watery and minimally bilious fluid in the container. Today he seems a little more cantankerous and is using more curse words in his discussion, being a little more adamant about want (cut off). Examination shows that his abdomen seems perhaps a little less distended. He does have bowel sounds present. The abdomen is soft and it is clearly softer and less tender in his left lower quadrant. He does not have any evident hernia. IMAGING STUDIES: The patient had a flat and upright abdominal x-ray today with a chest x-ray. The radiologist interpreted this as showing some persistent moderate dilation of one or two loops of small bowel in the left midabdomen. There was some stool noted in the proximal colon. IMPRESSION: The patient is being a little bit more unpleasant with the staff. I wonder if this has anything to do with any sort of withdrawal phenomenon but he has not shown any tachycardia or other symptoms. I discussed with him the usual process of clamping his NG tube looking for residuals and then determining whether to remove the NG tube. He asks what will happen if he demands to go home and we discussed this. We agreed that we would clamp tube for 3 hours and then check for residual. If this is low enough we will discontinue his NG tube and start him on clear liquids. His goal is to be out of here tomorrow and hopefully his condition will allow this.
[2018-10-02] MEDS: RAMELTEON 8 MG TAB (ROZEREM) PO SCH (20:44)
[2018-10-02] MEDS: AMITRIPTYLINE 50 MG TAB PO SCH (20:44)
[2018-10-02 22:00] VITALS: BP 149/83
[2018-10-03] MEDS: LR 1,000 ML IV SCH (01:53)
[2018-10-03 06:00] VITALS: BP 140/80
[2018-10-03 10:00] VITALS: BP 152/65
== END 2018-10-03 12:45 | disposition home or self-care (01) | DRG 390 ==
LOC: M ED 03:43 → M ED INP 10:38 → M MS5PR 12:08
PROVIDERS: ADMIT Surgery; ATTEND Surgery
DX: K56.50 Intestinal adhesions [bands], unspecified as to partial versus complete obstruction (principal); Z79.899 Other long term (current) drug therapy; I10 Essential (primary) hypertension; F17.200 Nicotine dependence, unspecified, uncomplicated; F41.9 Anxiety disorder, unspecified; N40.0 Benign prostatic hyperplasia without lower urinary tract symptoms; M51.36 Other intervertebral disc degeneration, lumbar region; F32.9 Major depressive disorder, single episode, unspecified

== ENCOUNTER → 2018-10-27 | Outpatient (CLI) | payer MEDICARE, BC, OTHER ==
[~2018-10-27] MED LIST changes: +ACET-897 PO; +B COTAB3 PO; +MILKSUS3 PO; +ROSU20TA4 PO
--- NOTE | 2018-10-28 06:43 | REP ---
LOW-DOSE LUNG SCREENING CT: 10/27/2018. Comparison: 10/31/2017. PA chest 10/02/2018. Clinical history: Personal history of nicotine dependence. Findings: Low-dose lung screening CT technique with orthopedic metal artifact reduction algorithm used because of the Fu rods in the lower thoracic upper lumbar region causing spray artifact. Findings: Anterior segment right upper lobe and left upper lobe curvilinear fibrotic changes with pleural-based scarring in the left upper lobe in the anterior axillary line. These areas of scarring unchanged from the previous CT. Some calcified pleural plaque along the anterior right chest wall, smaller in the anterolateral left chest wall, but stable. Chronic fibrotic and atelectatic change in the medial basal segment of the left lower lobe some of which could represent some rounded atelectasis. This appearance also unchanged. Medial segment right middle lobe curvilinear scarring, less in the inferior lingular segment and in both lower lung zones. Some bronchiectatic changes bilaterally noted. Impression: 1. Chronic scarring in both lungs involving all lobes and most segments with greatest zone of scarring and atelectasis or rounded atelectasis in the medial basal segment of the left lower lobe. Appearance is unchanged from the previous studies. No new or suspicious nodules or mass. There are calcified pleural plaques, unchanged. 2. Best described as Lung-RADS category II, benign. Recommend followup low-dose scanning in 1 year. Patients with these findings showing this stability have less than 1% chance of malignancy at the time of the exam. Electronically Signed by Matthew Edwards MD 10/28/2018 11:34 A
== END ==
LOC: M RAD 13:50
PROVIDERS: ATTEND Family Medicine
DX: Z12.2 Encounter for screening for malignant neoplasm of respiratory organs (principal); Z87.891 Personal history of nicotine dependence; R91.8 Other nonspecific abnormal finding of lung field

== ENCOUNTER → 2019-03-09 | Outpatient (REF) | payer MEDICARE, OTHER ==
[~2019-03-09] MED LIST changes: +MM S100C PO; -ROSU20TA4 PO; +ROSU20TA5 PO; -STOO100C PO
[2019-03-09 15:23] LABS: BASO % 0.6 % (0.0-1.0); EOS # 0.3 10^3/uL (0.0-0.5); HEMOGLOBIN 13.7 g/dl (13.5-17.5); LYMPH # 1.1 10^3/uL (1.5-5.0); LYMPH % 15.9 % (24.0-44.0); MEAN CORPUSCULAR HEMOGLOBIN 32.6 pg (27.0-33.0); MEAN CORPUSCULAR HGB CONC 31.9 g/dl (32.0-36.5); MEAN CORPUSCULAR VOLUME 102.4 fl (80.0-96.0); MONO # 0.7 10^3/uL (0.0-0.8); MONO % 9.9 % (0.0-5.0); NEUTROPHILS # 4.6 10^3/uL (1.5-8.5); NEUTROPHILS % 69.2 % (36.0-66.0); PLATELET COUNT, AUTOMATED 253 10^3/uL (150-450); WHITE BLOOD COUNT 6.7 10^3/uL (4.0-10.0)
[2019-03-09 15:57] LABS: ALBUMIN 4.1 GM/DL (3.2-5.2); ALT/SGPT 28 U/L (12-78); BILIRUBIN,TOTAL 0.7 MG/DL (0.2-1.0); BLOOD UREA NITROGEN 23 MG/DL (7-18); C REACTIVE PROTEIN QUANTITATIV < 0.30 MG/DL (0.00-0.30); CALCIUM LEVEL 9.3 MG/DL (8.8-10.2); CARBON DIOXIDE LEVEL 26 MEQ/L (21-32); CHLORIDE LEVEL 105 MEQ/L (98-107); CHOLESTEROL LEVEL 222 MG/DL (<200); CHOLESTEROL RISK RATIO 2.921 (<5); CPK CREATINE PHOSPHOKINASE 84 U/L (39-308); CREATININE FOR GFR 1.21 MG/DL (0.70-1.30); GLOMERULAR FILTRATION RATE > 60.0 (>42); GLUCOSE, FASTING 92 MG/DL (70-100); HDL CHOLESTEROL 76 MG/DL (>40); LDL CHOLESTEROL 132 MG/DL (<100); NON-HDL-C 146 MG/DL; POTASSIUM SERUM 4.6 MEQ/L (3.5-5.1); SODIUM LEVEL 140 MEQ/L (136-145); TOTAL PROTEIN 7.9 GM/DL (6.4-8.2); TRIGLYCERIDES LEVEL 71 MG/DL (<150)
[2019-03-14 00:07] LABS: FREE KAPPA LIGHT CHAINS SERUM 41.2 mg/L (3.3-19.4); FREE LAMBDA LIGHT CHAINS SERUM 53.1 mg/L (5.7-26.3); KAPPA/LAMBDA RATIO SERUM 0.78 (0.26-1.65); KAPPA/LAMBDA RATIO URINE 5.42 (2.04-10.37)
== END ==
LOC: M SFHCPLAZ 10:03
PROVIDERS: ATTEND Family Medicine
DX: Z12.5 Encounter for screening for malignant neoplasm of prostate (principal); N18.3 Chronic kidney disease, stage 3 (moderate); D47.2 Monoclonal gammopathy; Z79.899 Other long term (current) drug therapy
CPT/HCPCS: 36415; 80053; 80061; 82550; 83883; 85025; 86140; G0103

== ENCOUNTER 2019-07-19 16:27 | Emergency (ER) | payer MEDICARE, BC, OTHER ==
[~2019-07-19] VITALS: Ht 170.2 cm; Wt 71.8 kg
[~2019-07-19 16:27] MED LIST changes: -ALFU10TA2 PO; +ALFU10TA3 PO
[2019-07-19] MEDS ORDERED: NS 1,000 ML IV SCH (16:45)
[2019-07-19] MEDS ORDERED: CARB25TA9 PO (16:47)
[2019-07-19] MEDS ORDERED: ISOVUE-370 76% 100ML VIAL (Q9967) As Ordered ONE (17:14)
[2019-07-19 17:24] LABS: BASO % 0.4 % (0.0-1.0); EOS # 0.1 10^3/uL (0.0-0.5); HEMATOCRIT 39.5 % (42.0-52.0); HEMOGLOBIN 12.6 g/dl (13.5-17.5); MEAN CORPUSCULAR HEMOGLOBIN 31.7 pg (27.0-33.0); MEAN CORPUSCULAR HGB CONC 31.9 g/dl (32.0-36.5); MEAN CORPUSCULAR VOLUME 99.2 fl (80.0-96.0); MONO # 0.6 10^3/uL (0.0-0.8); MONO % 8.4 % (0.0-5.0); NEUTROPHILS # 5.3 10^3/uL (1.5-8.5); NEUTROPHILS % 75.9 % (36.0-66.0); PLATELET COUNT, AUTOMATED 216 10^3/uL (150-450); RED BLOOD COUNT 3.98 10^6/uL (4.30-6.10); WHITE BLOOD COUNT 6.9 10^3/uL (4.0-10.0)
[2019-07-19 17:46] LABS: ALBUMIN 3.6 GM/DL (3.2-5.2); BILIRUBIN,DIRECT 0.3 MG/DL (0.0-0.2); BILIRUBIN,TOTAL 0.7 MG/DL (0.2-1.0); TOTAL PROTEIN 6.9 GM/DL (6.4-8.2)
--- NOTE | 2019-07-19 17:47 | REPVR ---
PROCEDURE INFORMATION: Exam: CT Abdomen And Pelvis With Contrast Exam date and time: 07/19/2019 5:21 PM Age: 78 years old Clinical indication: Abdominal pain; Generalized; Additional info: Abd pishayna ? obstruction TECHNIQUE: Imaging protocol: Computed tomography of the abdomen and pelvis with intravenous contrast. Radiation optimization: All CT scans at this facility use at least one of these dose optimization techniques: automated exposure control; mA and/or kV adjustment per patient size (includes targeted exams where dose is matched to clinical indication); or iterative reconstruction. Contrast material: ISOVUE 370; Contrast volume: 100 ml; Contrast route: IV; COMPARISON: CT ABD/PEL W/IV CONTRAST ONLY 02/14/2018 1:43 AM FINDINGS: Lungs: Bibasilar airspace consolidations demonstrated at both lung bases, most pronounced in the lingular lobe and left lower lobe. Trace bilateral pleural effusions. Pleural thickening. Findings are unchanged comparison to the prior study. Liver: Examination of the liver demonstrates a lobular surface contour, and enlargement of the left and caudate lobes, findings consistent with cirrhosis. There is a diffuse decrease in hepatic parenchymal density, consistent with steatosis. Multiple hyperenhancing irregularly-shaped nodules in the liver measuring up to 4.4 x 3.3 cm in the posterior aspect of the right lobe of the liver, all which have increased in size in comparison to the prior study. Findings are worrisome for multi focal hepatocellular carcinoma. MRI correlation would be helpful. Gallbladder and bile ducts: Normal. No calcified stones. No ductal dilation. Pancreas: Normal. No ductal dilation. Spleen: Normal. No splenomegaly. Adrenals: Stable appearance of bilateral adrenal nodules measuring up to 1.8 cm on the left. Findings compatible with bilateral adrenal adenomas. Kidneys and ureters: Bilateral hydroureteronephrosis, mild on the right and [id number] on the left. No obstructing mass or calculus demonstrated. Stomach and bowel: There is increased feces throughout the colon consistent with constipation. Appendix: No evidence of appendicitis. Intraperitoneal space: Unremarkable. No free air. No significant fluid collection. Vasculature: The aorta and pelvic arteries demonstrates moderate atherosclerotic calcification. Lymph nodes: Unremarkable. No enlarged lymph nodes. Bladder: Diffuse thickening of the bladder wall with mild perivesicular inflammation, findings which may indicate the presence of cystitis although changes related to chronic bladder outlet obstruction can present in a similar fashion. Reproductive: Unremarkable as visualized. Bones/joints: Status post posterior interbody fusion from T11-S1 using transpedicular screws in long metallic rods. Status post bilateral laminectomies from T12 to L5 with extensive paraspinal on and posterior epidural scarring. Thecal sac obscured at several levels due to beam hardening artifact related to the metallic hardware. Status post kyphoplasty at S1 and both posterolateral iliac bones. Soft tissues: Unremarkable. Other findings: Osteoporosis. IMPRESSION: 1. Examination of the liver demonstrates a lobular surface contour, and enlargement of the left and caudate lobes, findings consistent with cirrhosis. 2. There is a diffuse decrease in hepatic parenchymal density, consistent with steatosis. 3. Multiple hyperenhancing irregularly-shaped nodules in the liver measuring up to 4.4 x 3.3 cm in the posterior aspect of the right lobe of the liver, all which have increased in size in comparison to the prior study. Findings are worrisome for multi focal hepatocellular carcinoma. MRI correlation would be helpful. 4. Stable appearance of bilateral adrenal nodules measuring up to 1.8 cm on the left. Findings compatible with bilateral adrenal adenomas. 5. Bilateral hydroureteronephrosis, mild on the right and [id number] on the left. No obstructing mass or calculus demonstrated. 6. There is increased feces throughout the colon consistent with constipation. COMMENT: Consistent with the [employer] [place]'s Incidental Findings Committee white paper (J Am Katie Radiol 2017): Any incidental adrenal lesion less than 1.0 cm is likely benign. No follow-up imaging is recommended for these lesions per consensus recommendations based on imaging criteria. Further lab evaluation could be pursued if warranted based on clinical findings. Electronically signed by: Oswaldo Dietrich On 07/19/2019 17:46:52 PM
[2019-07-19] MEDS ORDERED: FLEET ENEMA PR STA (17:56)
[2019-07-19 21:39] VITALS: BP 108/74
--- NOTE | 2019-07-20 05:51 | ECGEPIP ---
[facility] - ED Test Date: 2019-07-19 Pat Name: RACHAEL FOREMAN Department: Room: - Gender: Male Manager Of Patient: ct : 1940 Requested By: Rebecca Cline Order Number: [id number] Reading MD: Chirag Hi Measurements Intervals [place] Rate: 88 P: HI: 0 QRS: -15 QRSD: 75 T: 29 QT: 346 QTc: 420 Interpretive Statements SINUS RHYTHM WITH SINUS ARRHYTHMIA WITH FIRST DEGREE AV BLOCK POOR R WAVE PROGRESSION BASELINE ARTIFACT AFFECTS INTERPRETATION Electronically Signed on 07-20-2019 5:50:38 EST by Chirag Hi
== END 2019-07-19 21:48 | disposition home or self-care (01) ==
LOC: M ED 16:27
DX: N13.30 Unspecified hydronephrosis (principal); K76.89 Other specified diseases of liver; K59.00 Constipation, unspecified; I44.0 Atrioventricular block, first degree; R94.31 Abnormal electrocardiogram [ECG] [EKG]; K76.0 Fatty (change of) liver, not elsewhere classified; I10 Essential (primary) hypertension; G20 Parkinson's disease; G62.9 Polyneuropathy, unspecified; F41.9 Anxiety disorder, unspecified; F33.9 Major depressive disorder, recurrent, unspecified; Z79.899 Other long term (current) drug therapy; Z87.891 Personal history of nicotine dependence; Z98.890 Other specified postprocedural states
CPT/HCPCS: 74177; 80047; 80076; 83690; 85025; 93005; 93041; 96360; 96361; 99284; Q9967

== ENCOUNTER 2019-11-20 00:07 | Inpatient (IN) | payer MEDICARE, BC, OTHER ==
[~2019-11-20] VITALS: Ht 170.2 cm; Wt 68.2 kg
[~2019-11-20 00:07] MED LIST changes: +CARB25TA9 PO
[2019-11-20] MEDS ORDERED: ISOVUE-370 76% 100ML VIAL As Ordered ONE (00:33)
[2019-11-20 00:58] LABS: BASO % 0.3 % (0.0-1.0); EOS # 0.3 10^3/uL (0.0-0.5); EOS % 2.4 % (0.0-3.0); HEMATOCRIT 39.4 % (42.0-52.0); HEMOGLOBIN 12.9 g/dl (13.5-17.5); LYMPH # 0.8 10^3/uL (1.5-5.0); LYMPH % 7.6 % (24.0-44.0); MEAN CORPUSCULAR HEMOGLOBIN 32.1 pg (27.0-33.0); MEAN CORPUSCULAR HGB CONC 32.7 g/dl (32.0-36.5); MONO # 0.8 10^3/uL (0.0-0.8); MONO % 7.5 % (0.0-5.0); NEUTROPHILS # 8.7 10^3/uL (1.5-8.5); NEUTROPHILS % 81.9 % (36.0-66.0); PLATELET COUNT, AUTOMATED 228 10^3/uL (150-450); RED BLOOD COUNT 4.02 10^6/uL (4.30-6.10); WHITE BLOOD COUNT 10.6 10^3/uL (4.0-10.0)
[2019-11-20 01:22] LABS: INR 1.09; PROTHROMBIN TIME 13.8 SECONDS (11.8-14.0)
[2019-11-20 01:23] LABS: PARTIAL THROMBOPLASTIN TIME 39.3 SECONDS (25.0-38.4)
[2019-11-20 01:25] LABS: ALBUMIN 3.8 GM/DL (3.2-5.2); ALT/SGPT 29 U/L (12-78); BILIRUBIN,DIRECT 0.1 MG/DL (0.0-0.2); BILIRUBIN,TOTAL 0.5 MG/DL (0.2-1.0); CK-MB VALUE MASS 2.8 NG/ML (<3.6); CPK CREATINE PHOSPHOKINASE 91 U/L (39-308); LIPASE 50 U/L (73-393); MB/CK RELATIVE INDEX 3.08 (< OR =4); TOTAL PROTEIN 7.6 GM/DL (6.4-8.2); TROPONIN I < 0.02 NG/ML (< 0.10)
--- NOTE | 2019-11-20 01:26 | REPVR ---
PROCEDURE INFORMATION: Exam: CT Abdomen And Pelvis With Contrast Exam date and time: 11/20/2019 12:25 AM Age: 78 years old Clinical indication: Abdominal pain; Generalized; Additional info: Abdominal pain, h/o sbo TECHNIQUE: Imaging protocol: Computed tomography of the abdomen and pelvis with intravenous contrast. Radiation optimization: All CT scans at this facility use at least one of these dose optimization techniques: automated exposure control; mA and/or kV adjustment per patient size (includes targeted exams where dose is matched to clinical indication); or iterative reconstruction. Contrast material: ISO; Contrast volume: 100 ml; Contrast route: AC; COMPARISON: CT ABD/PEL W/IV CONTRAST ONLY 07/19/2019 5:16 PM FINDINGS: Lungs: Bilateral dependent opacities with mucoid impaction in the left lower lobe bronchial tree. Liver: Mild steatosis. Stable ill-defined hyperattenuating lesions in the right and left hepatic lobes can be further assessed with dedicated [address] or MRI. Gallbladder and bile ducts: Normal. No calcified stones. No ductal dilation. Pancreas: Normal. No ductal dilation. Spleen: Normal. No splenomegaly. Adrenals: Stable indeterminate bilateral adrenal nodules measuring 1.8 cm in diameter on the left and 1.6 cm in diameter on the right. Kidneys and ureters: Bilateral renal cortical scarring. Dilatation of the bilateral renal collecting systems to the level of the urinary bladder trigone. No obstructing nephrolithiasis is appreciated. Stomach and bowel: Small bowel obstruction with transition point best seen on image number 72. Status post sigmoidectomy. Diverticulosis of the colon. No evidence of acute diverticulitis. Appendix: No evidence of appendicitis. Intraperitoneal space: Unremarkable. No free air. No significant fluid collection. Vasculature: Atherosclerotic disease of the abdominal aorta. Lymph nodes: Unremarkable. No enlarged lymph nodes. Bladder: Urinary bladder is mildly distended. Reproductive: Unremarkable as visualized. Bones/joints: Hardware overlies lumbosacral spine. Laminectomy and fusion at L1-S1. Osteopenia. Soft tissues: Unremarkable. IMPRESSION: Small bowel obstruction with transition point best seen on image number 72. Electronically signed by: Mitchel Walker On 11/20/2019 01:25:38 AM
[2019-11-20] MEDS ORDERED: NS 500 ML IV ONE (02:00)
[2019-11-20] MEDS: MORPHINE 2 MG/ML 1ML VIAL (J2270) IV PRN ×2 (02:30→03:11)
[2019-11-20] MEDS ORDERED: ACETAMINOPHEN TAB 650MG DOSE (2X325MG) PO PRN (03:00)
[2019-11-20] MEDS ORDERED: MAALOX 30 ML SUSP *UDC PO PRN (03:00)
[2019-11-20] MEDS ORDERED: MORPHINE 4 MG/ML 1ML VIAL/SYRINGE (J2270) IV PRN (03:00)
[2019-11-20] MEDS ORDERED: MOM 30ML SUSPENSION UDC PO PRN (03:00)
[2019-11-20] MEDS ORDERED: ONDANSETRON 4MG/2ML VIAL IV PRN (03:00)
--- NOTE | 2019-11-20 03:03 | HPEPDOC ---
General Date of Admission Date of Service: Nov 20, 2019 Chief Complaint The patient is a 78-year-old male admitted with a reason for visit of Lower Abd Pain. Source: Patient Exam Limitations: No limitations Timing/Duration: Other Severity: Other (3 days) Associated Symptoms: Other (constipation for 3 days, also abdominal pain and nausea ) History of Present Illness This is a 78 years old white male with past medical history of hypertension, history of alcohol and tobacco abuse in the past but BPH, anxiety disorder, history of SBO presented in the ER with chief complaints of generalized abdominal pain with nausea and no BM since last 3 days. Pain is a dull in character, nonradiating, associated with constipation and nausea but no vomiting. Not improve with any medications, not exacerbated by eating or drinking. Also, not associated with fever. Eleanor is being admitted with the diagnosis of SBO and surgery. Will follow patient in a.m. Home Medications Scheduled Alfuzosin HCl (Alfuzosin HCl ER) 10 Mg Tab, 10 MG PO DAILY, (Reported) Amitriptyline HCl (Amitriptyline HCl) 50 Mg Tab, 50 MG PO QHS, (Reported) Amlodipine Besylate (Amlodipine Besylate) 5 Mg Tab, 5 MG PO BID, (Reported) Carbidopa/Levodopa (Carbidopa-Levodopa 25-100 Tab) 1 Each Tablet, 1 TAB PO BID, (Reported) Docusate Sodium (Stool Softener) 100 Mg Cap, 100 MG PO BID, (Reported) Finasteride (Finasteride) 5 Mg Tab, 5 MG PO DAILY, (Reported) Losartan Potassium (Losartan Potassium) 100 Mg Tab, 100 MG PO DAILY, (Reported) Psyllium Husk (Psyllium Husk) 1 Pow Pow, 1 POW PO DAILY, (Reported) Rosuvastatin Calcium (Rosuvastatin Calcium) 20 Mg Tablet, 20 MG PO QHS, (Reported) Tramadol HCl (Tramadol HCl) 50 Mg Tab, 50 MG PO TID, (Reported) [Sominex] , 1 TAB PO QHS, (Reported) Scheduled PRN Acetaminophen (Tylenol Extra Strength) 500 Mg Tablet, 1,000 MG PO TID PRN for PAIN / FEVER, (Reported) Polyethylene Glycol 3350 (Miralax) 1 Pow Pow, 17 GM PO DAILY PRN for CONSTIP ATION, (Reported) Allergies Coded Allergies: No Known Allergies (Unverified , 09/29/18) Past Medical History Medical History Hypertension, alcohol and tobacco abuse, BPH, SBO Surgical History Lower back surgery with lumbar spine fusion, cervical spine fusion, transurethral resection of prostate, bladder neck stricture surgery. Sigmoid colon resection, status post chest tube placement for empyema. Also arthroscopic for right knee infection Family History Family history reviewed. No history of diabetes or cancer Social History * Smoker: current smoker Alcohol: occationally Drugs: denies A-FIB/CHADSVASC A-FIB History Current/History of A-Fib/PAF?: No Review of Systems Constitutional: Denies: Chills, Fever, Malaise, Night Sweats, Weakness, Fatigue, Weight Loss, Lethargy, Other Eyes: Denies: Pain, Vision change, Conjunctivae inflammation, Eyelid inflammation, Redness, Other ENT: Denies: Head Aches, Ear Pain, Dysphagia, Sinus Congestion, Post Nasal Drip, Sore Throat, Epistaxis, Other Symptoms Skin: Denies: Rash, Lesions, Jaundice, Bruising, Itching, Dry, Breakdown, Nail Changes, Other Pulmonary: Denies: Dyspnea, Cough, Pleuritic Chest Pain, Other Symptoms Cardiovascular: Denies: Chest Pain, Palpitations, Orthopnea, Paroxysmal Noc. Dyspnea, Edema, Lt Headedness, Other Symptoms Gastrointestinal: Reports: Nausea, Abdominal Pain, Constipation Genitourinary: Denies: Dysuria, Frequency, Incontinence, Hematuria, Retention, Other Symptoms Hematologic: Denies: Bruising, Bleeding Excessively, Petecchia, Purpura, Enlarged Lymph Nodes, Other Hematologic Endocrine: Denies: Polydipsia, Polyphagia, Polyuria, Heat Intolerance, Cold Intolerance, Other Endocrine Sx Musculoskeletal: Denies: Neck Pain, Back Pain, Shoulder Pain, Arm Pain, Hand Pain, Leg Pain, Foot Pain, Joint Pain, Muscle Pain, Spasms, Other Symptoms Neurological: Denies: Weakness, Numbness, Incoordination, Change in speech, Confusion, Seizures, Other Symptoms Psych: Denies: Mood Normal, Anxiety, Depression, Memory Issues, Thoughts of Self Harm, Anger, Thoughts of Harming Other, Other Psych Physical Examination General Exam: Positive: Alert, Cooperative Eye Exam: Positive: PERRLA, Conjunctiva & lids normal ENT Exam: Positive: Atraumatic, Mucous membr. moist/pink Neck Exam: Positive: Supple Chest Exam: Positive: Clear to auscultation, Normal air movement Heart Exam: Positive: Rate Normal, Normal S1, Normal S2 Abdomen Exam: Positive: Soft, Tenderness (, generalized tenderness all over the abdomen and bowel sounds are exaggerated) Extremity Exam: Positive: Normal pulses Skin Exam: Positive: Nl turgor and temperature Neuro Exam: Positive: Strength at 5/5 X4 ext, Sensation Intact, Cranial Nerves 3-12 NL Psych Exam: Positive: Mood NL, Oriented x 3 Vital Signs Vital Signs Date Time Temp Pulse Resp B/P (MAP) Pulse Ox O2 Delivery O2 Flow Rate FiO2 11/20/19 02:30 20 97 Room Air 11/20/19 01:15 148/72 (97) 11/20/19 01:07 64 11/20/19 00:22 98.6 Laboratory Data Labs 24H Laboratory Tests 2 11/20/19 00:33: Immature Granulocyte % (Auto) 0.3, Neutrophils (%) (Auto) 81.9H, Lymphocytes (%) (Auto) 7.6L, Monocytes (%) (Auto) 7.5H, Eosinophils (%) (Auto) 2.4, Basophils (%) (Auto) 0.3, Neutrophils # (Auto) 8.7H, Lymphocytes # (Auto) 0.8L, Monocytes # (Auto) 0.8, Eosinophils # (Auto) 0.3, Basophils # (Auto) 0.0, Nucleated Red Blood Cells % (auto) 0.0, Prothrombin Time 13.8, Prothromb Time International Ratio 1.09, Activated Partial Thromboplast Time 39.3H, Lactic Acid Level 1.0, Total Bilirubin 0.5, Direct Bilirubin 0.1, Aspartate Amino Transf (AST/SGOT) 23, Alanine Aminotransferase (ALT/SGPT) 29, Alkaline Phosphatase 73, Total Creatine Kinase 91, Creatine Kinase MB 2.8, Creatine Kinase MB Relative Index 3.08, Troponin I < 0.02, Total Protein 7.6, Albumin 3.8, Albumin/Globulin Ratio 1.0, Lipase 50L 11/20/19 00:52: POC Glucose (Misc Panel) 120H, POC Sodium (Misc Panel) 140, POC Potassium (Misc Panel) 4.1, POC Chloride (Misc Panel) 100, POC Total CO2 (Misc Panel) 29.0H, POC Blood Urea Nitrogen (Misc Panel 23, POC Ionized Calcium (Misc Panel) 4.6, POC Creatinine (Misc Panel) 1.3, POC Hematocrit (Misc Panel) 40.0 CBC/BMP Laboratory Tests 11/20/19 00:33 Problems (1) SBO (small bowel obstruction) Status: Acute Problem Text: Admit patient to [facility] floor with the diagnosis of SBO CT abdomen abdomen pain is consistent with HBO with clear-cut transition point WBC count of 10.6, hemoglobin is 12.9, lactic acid 1.0, troponin less than 0.02. Lipase 50. CMP is normal with BUN of [address], [address] Courtney was called from ED and he will see patient in a.m. IV fluids normal saline 70 mL per hour NG tube insertion with low intermittent suction Morphine sulfate 4 mg IV every 4 hours when necessary Zofran 4 mg IV every 4 hours when necessary DVT prophylaxis with bilateral SCDs Diet is nothing by mouth Activity as tolerated Hold all home meds (2) Hypertension Status: Chronic Problem Text: Hold all by mouth meds secondary to his by mouth Patient. Blood pressure currently is a under control with 148/72, and will continue monitoring. If continues to trend higher than we will start IV antihypertensive meds (3) BPH (benign prostatic hyperplasia) Status: Chronic Problem Text: Stable Plan / VTE VTE Prophylaxis Ordered?: Yes DARYL GARCIA MD Nov 20, 2019 03:02
[2019-11-20] MEDS: NS 1,000 ML IV SCH ×2 (03:08→16:48)
[2019-11-20 04:07] VITALS: BP 139/84
[2019-11-20 06:00] VITALS: BP 146/72
--- NOTE | 2019-11-20 11:40 | IPNPDOC ---
Text Note Date of Service The patient was seen on 11/20/19. NOTE Subjective: Seen at bedside. Has NG tube in place. distension and tenderness in the upper quadrants. Patient concerned about his chronic back pain and his pain medications and his sleeping aid. Physical Exam: Vitals : as below. General Exam: Positive: Alert, Cooperative Eye Exam: Positive: PERRLA, Conjunctiva & lids normal ENT Exam: Positive: Atraumatic, Mucous membr. moist/pink Neck Exam: Positive: Supple Chest Exam: Positive: Clear to auscultation, Normal air movement Heart Exam: Positive: Rate Normal, Normal S1, Normal S2, no rub or murmur. Abdomen Exam: tenderness in the left upper quadrants. LUQ is tense, right is soft, no guarding or rebound, bowel sounds sluggish. Extremity Exam: Positive: Normal pulses, no edema Skin Exam: Positive: Nl turgor and temperature Neuro Exam: Positive: Strength at 5/5 X4 ext, Sensation Intact, Cranial Nerves 3-12 NL Psych Exam: Positive: Mood NL, Oriented x 3 Assessment and PLAN 78 year old male with SBO with transition point present. Probably due to adhesions. Seen by surgery. Will continue conservative management for now with NPO, IVF, NG tube. All meds IV or MN. only will try to give antihypertensives by mouth and clamp the NG briefly after antihypertensives. VS,Fishbone, I+O VS, Fishbone, I+O Laboratory Tests 11/20/19 00:33 Vital Signs Date Time Temp Pulse Resp B/P (MAP) Pulse Ox O2 Delivery O2 Flow Rate FiO2 11/20/19 06:00 97.8 89 18 146/72 (96) 92 Room Air I&O- Last 24 Hours up to 6 AM 11/20/19 05:59 Intake Total 575 ml Output Total 750 ml Balance -175 ml LEONELA CONTRERAS MD Nov 20, 2019 11:40
[2019-11-20] MEDS ORDERED: ACETAMINOPHEN 650 MG SUPP PR PRN (11:45)
[2019-11-20] MEDS: amLODIPine 5 MG TAB PO SCH ×2 (12:32→21:36)
[2019-11-20 14:00] VITALS: BP 145/69
[2019-11-20] MEDS: KETOROLAC 30 MG/ML 1ML VIAL IV PRN (15:11)
--- NOTE | 2019-11-20 20:11 | ECGEPIP ---
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
[2019-11-20] MEDS: RAMELTEON 8 MG TAB (ROZEREM) PO SCH (21:36)
[2019-11-20 22:00] VITALS: BP 146/87
[2019-11-21] MEDS: KETOROLAC 30 MG/ML 1ML VIAL IV PRN (02:32)
[2019-11-21 06:00] VITALS: BP 120/73
[2019-11-21] MEDS: NS 1,000 ML IV SCH ×2 (06:12→20:01)
[2019-11-21 06:15] LABS: BASO % 0.2 % (0.0-1.0); EOS % 0.2 % (0.0-3.0); HEMATOCRIT 38.2 % (42.0-52.0); HEMOGLOBIN 12.3 g/dl (13.5-17.5); LYMPH # 0.7 10^3/uL (1.5-5.0); LYMPH % 8.7 % (24.0-44.0); MEAN CORPUSCULAR HEMOGLOBIN 32.5 pg (27.0-33.0); MEAN CORPUSCULAR HGB CONC 32.2 g/dl (32.0-36.5); MEAN CORPUSCULAR VOLUME 100.8 fl (80.0-96.0); MONO # 1.2 10^3/uL (0.0-0.8); MONO % 13.8 % (0.0-5.0); NEUTROPHILS # 6.5 10^3/uL (1.5-8.5); NEUTROPHILS % 76.9 % (36.0-66.0); PLATELET COUNT, AUTOMATED 206 10^3/uL (150-450); RED BLOOD COUNT 3.79 10^6/uL (4.30-6.10); WHITE BLOOD COUNT 8.4 10^3/uL (4.0-10.0)
[2019-11-21 06:45] LABS: ALBUMIN 3.1 GM/DL (3.2-5.2); BILIRUBIN,TOTAL 0.6 MG/DL (0.2-1.0); CALCIUM LEVEL 8.4 MG/DL (8.8-10.2); CREATININE FOR GFR 1.4 MG/DL (0.70-1.30); GLOMERULAR FILTRATION RATE 52.3 (>42); MAGNESIUM LEVEL 2.5 MG/DL (1.8-2.4); POTASSIUM SERUM 4.6 MEQ/L (3.5-5.1); TOTAL PROTEIN 6.7 GM/DL (6.4-8.2)
[2019-11-21] MEDS: amLODIPine 5 MG TAB PO SCH ×2 (08:29→20:03)
--- NOTE | 2019-11-21 08:53 | IPNPDOC ---
Text Note Date of Service The patient was seen on 11/21/19. NOTE No acute events overnight. He has had over 3 liters out of the NGT. He denies nausea, emesis, or fevers, but he still has distention and pain in the lower abdomen. No flatus or BM. VSSAF NAD abd - soft on the right and tense on the left side, TTP left side and lower abdomen. labs - below A) 78y/o male with SBO ilkely secondary to adhesions P) NGT to LIS ambulate await on return on bowel function I explained to him that I am concerned with his slow progress so far and that we will discuss surgery tomorrow. He is still very hesitant, but if he does not improve in another 48 hours I will recommend laparascopy. Kyle Courtney DO VS,Eduard, I+O VS, Eduard, I+O Laboratory Tests 11/21/19 05:40 Vital Signs Date Time Temp Pulse Resp B/P (MAP) Pulse Ox O2 Delivery O2 Flow Rate FiO2 11/21/19 08:29 80 102/60 11/21/19 06:00 98.3 18 94 Room Air I&O- Last 24 Hours up to 6 AM 11/21/19 06:00 Intake Total 1800 ml Output Total 1980 ml Balance -180 ml DEANDRA COURTNEY DO Nov 21, 2019 08:52
--- NOTE | 2019-11-21 12:14 | IPNPDOC ---
Subjective Date Seen The patient was seen on 11/21/19. Subjective Chief Complaint/HPI Patient's slightly better but still has no BM. Hasn't passed gas either General: Denies: ROS Unobtainable, Chills, Night Sweats, Fatigue, Malaise, Normal Appetite, Other Symptoms Constitutional: Denies: Chills, Fever, Malaise, Night Sweats, Weakness, Fatigue, Weight Loss, Lethargy, Other Eyes: Denies: Pain, Vision change, Conjunctivae inflammation, Eyelid inflammation, Redness, Other ENT: Denies: Head Aches, Ear Pain, Dysphagia, Sinus Congestion, Post Nasal Drip, Sore Throat, Epistaxis, Other Symptoms Pulmonary: Denies: Dyspnea, Cough, Pleuritic Chest Pain, Other Symptoms Cardiovascular: Denies: Chest Pain, Palpitations, Orthopnea, Paroxysmal Noc. Dyspnea, Edema, Lt Headedness, Other Symptoms Gastrointestinal: Reports: Abdominal Pain Hematologic: Denies: Bruising, Bleeding Excessively, Petecchia, Purpura, Enlarged Lymph Nodes, Other Hematologic Endocrine: Denies: Polydipsia, Polyphagia, Polyuria, Heat Intolerance, Cold Intolerance, Other Endocrine Sx Musculoskeletal: Denies: Neck Pain, Back Pain, Shoulder Pain, Arm Pain, Hand Pain, Leg Pain, Foot Pain, Joint Pain, Muscle Pain, Spasms, Other Symptoms Neurological: Denies: Weakness, Numbness, Incoordination, Change in speech, Confusion, Seizures, Other Symptoms Psych: Reports: Mood Normal; Denies: Anxiety, Depression, Memory Issues, Thoughts of Self Harm, Anger, Thoughts of Harming Other, Other Psych Objective Physical Examination General Exam: Positive: Alert, Cooperative Eye Exam: Positive: PERRLA, Conjunctiva & lids normal ENT Exam: Positive: Atraumatic, Mucous membr. moist/pink Neck Exam: Positive: Supple Chest Exam: Positive: Clear to auscultation, Normal air movement Heart Exam: Positive: Rate Normal, Normal S1, Normal S2 Abdomen Exam: Positive: Soft, Tenderness (, generalized tenderness all over the abdomen and bowel sounds are exaggerated) Extremity Exam: Positive: Normal pulses Skin Exam: Positive: Nl turgor and temperature Neuro Exam: Positive: Strength at 5/5 X4 ext, Sensation Intact, Cranial Nerves 3-12 NL Psych Exam: Positive: Mood NL, Oriented x 3 Assessment /Plan Problems (1) Small bowel obstruction Status: Acute Problem Specific Plan: Consult Specialist Problem Text: CT abdomen abdomen pain is consistent with SBO with clear-cut transition point WBC count of 10.6, hemoglobin is 12.9, lactic acid 1.0, troponin less than 0.02. Lipase 50. CMP is normal with BUN of 23, creatinine 1.3 Appreciated. Surgical follow-up Patient is still has NG tube with suctioning on . He still hasn't passed the case and no BM Continue nothing by mouth Continue Zofran and morphine for symptomatic care Further recommendation as per surgery (2) Hypertension Status: Chronic Problem Text: Blood pressure is under well control now Continue present meds (3) BPH (benign prostatic hyperplasia) Status: Chronic Problem Text: By mouth meds on hold Restart once he is taking oral meds Plan/VTE VTE Prophylaxis Ordered?: Yes VS, I&O, 24H, Fishbone Vital Signs/I&O Vital Signs Date Time Temp Pulse Resp B/P (MAP) Pulse Ox O2 Delivery O2 Flow Rate FiO2 11/21/19 08:29 80 102/60 11/21/19 06:00 98.3 18 94 Room Air I&O- Last 24 Hours up to 6 AM0 11/21/19 05:59 Intake Total 1380 ml Output Total 2300 ml Balance -920 ml Laboratory Data 24H LABS Laboratory Tests 2 11/20/19 13:51: 11/21/19 05:40: Immature Granulocyte % (Auto) 0.2, Neutrophils (%) (Auto) 76.9H, Lymphocytes (%) (Auto) 8.7L, Monocytes (%) (Auto) 13.8H, Eosinophils (%) (Auto) 0.2, Basophils (%) (Auto) 0.2, Neutrophils # (Auto) 6.5, Lymphocytes # (Auto) 0.7L, Monocytes # (Auto) 1.2H, Eosinophils # (Auto) 0.0, Basophils # (Auto) 0.0, Nucleated Red Blood Cells % (auto) 0.0, Anion Gap 7L, Glomerular Filtration Rate 52.3, Calcium Level 8.4L, Magnesium Level 2.5H, Total Bilirubin 0.6, Aspartate Amino Transf (AST/SGOT) 20, Alanine Aminotransferase (ALT/SGPT) 33, Alkaline Phosphatase 65, Total Protein 6.7, Albumin 3.1L, Albumin/Globulin Ratio 0.9 CBC/BMP Laboratory Tests 11/21/19 05:40 DARYL GARCIA MD Nov 21, 2019 12:14
[2019-11-21 14:00] VITALS: BP 135/66
--- NOTE | 2019-11-21 14:49 | CR ---
DATE OF CONSULTATION: 11/20/2019 CHIEF COMPLAINT: Abdominal pain. HISTORY OF PRESENT ILLNESS: The patient is a 78-year-old male who presents with lower abdominal pain. It has been going on for a couple of days. He came into the emergency room because of that. Was found to have possible small bowel obstruction on the CT. He was admitted to the medicine service due to complicated past medical history, and I was asked to evaluate. He claims that he has had a couple episodes similar to this over the past few years that were diagnosed as constipation. He was given laxatives, and they resolved on their own. He has never had any surgery for a bowel obstruction in the past. He has had some increased nausea and vomiting over the last 3 days with no bowel movements in 3 days. Then, when he started to have the lower abdominal pain, he decided that he should come in and be evaluated. Denies any current nausea or vomiting with the nasogastric (NG) tube in place. 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 No flatus or bowel movement overnight since being admitted. PAST MEDICAL HISTORY: Hypertension, alcohol and tobacco abuse, benign prostatic hypertrophy (BPH), small bowel obstructions. PAST SURGICAL HISTORY: Low back surgery, bladder neck surgery, transurethral resection of prostate, sigmoid colon resection for diverticulitis, right knee infection with arthroscopic evaluation, and chest tube placements for empyema. FAMILY HISTORY: Noncontributory. SOCIAL HISTORY: Smokes daily. Denies alcohol or drugs. REVIEW OF SYSTEMS: Pertinent positives and negative in history of present illness (HPI). PHYSICAL EXAMINATION: Generally, alert and oriented times three. No acute distress. Vital signs: Temperature 98.6, pulse 69, respirations 17, blood pressure 127/68, pulse oximetry 95% on room air. HEENT: Pupils equally round and react to light and accommodation. Heart: S1, S2, regular rate and rhythm. Lungs: Clear to auscultation bilaterally. Abdomen: Soft, distended, softer on the right than the left, more distention on the left side of the abdomen, more tense in the right, also more tender on the left than the right. No signs of any ventral hernias. Extremities: No clubbing, cyanosis, or edema. LABORATORY DATA: White count 10.6, hemoglobin 12.9, platelets 228. LFTs all within normal range. IMAGING STUDIES: CT abdomen and pelvis shows a small bowel obstruction with a transition point in the lower midline. No signs of any inflammation or masses. No free air or fluid collections. ASSESSMENT AND PLAN: The patient is a 78-year-old male with likely small bowel obstruction secondary to adhesions. At this point, he is being treated medically. He does not have a surgical abdomen. He is tolerating the NG tube with good output. Will continue to monitor him this way for the next 48-72 hours. Continue with NG tube to low intermittent suction. Encourage frequent ambulation and movement and monitor for the return of bowel function. If he does not improve with that route, then I will discuss surgical intervention with him in a couple of days. SERENA
--- NOTE | 2019-11-21 18:54 | ECGEPIP ---
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
[2019-11-21] MEDS: RAMELTEON 8 MG TAB (ROZEREM) PO SCH (20:54)
[2019-11-21 22:00] VITALS: BP 132/58
[2019-11-22 06:00] VITALS: BP 154/70
[2019-11-22 06:21] LABS: BASO % 0.3 % (0.0-1.0); EOS # 0.1 10^3/uL (0.0-0.5); EOS % 1.9 % (0.0-3.0); HEMATOCRIT 37.8 % (42.0-52.0); HEMOGLOBIN 11.9 g/dl (13.5-17.5); LYMPH # 0.9 10^3/uL (1.5-5.0); LYMPH % 15.2 % (24.0-44.0); MEAN CORPUSCULAR HEMOGLOBIN 31.6 pg (27.0-33.0); MEAN CORPUSCULAR HGB CONC 31.5 g/dl (32.0-36.5); MEAN CORPUSCULAR VOLUME 100.3 fl (80.0-96.0); MONO # 0.7 10^3/uL (0.0-0.8); MONO % 11.8 % (0.0-5.0); NEUTROPHILS # 4.1 10^3/uL (1.5-8.5); NEUTROPHILS % 70.6 % (36.0-66.0); PLATELET COUNT, AUTOMATED 202 10^3/uL (150-450); RED BLOOD COUNT 3.77 10^6/uL (4.30-6.10); WHITE BLOOD COUNT 5.8 10^3/uL (4.0-10.0)
[2019-11-22 06:48] LABS: ALT/SGPT 35 U/L (12-78); BILIRUBIN,TOTAL 0.7 MG/DL (0.2-1.0); BLOOD UREA NITROGEN 30 MG/DL (7-18); CARBON DIOXIDE LEVEL 29 MEQ/L (21-32); CHLORIDE LEVEL 106 MEQ/L (98-107); CREATININE FOR GFR 1.04 MG/DL (0.70-1.30); GLOMERULAR FILTRATION RATE > 60.0 (>42); GLUCOSE, FASTING 75 MG/DL (70-100); MAGNESIUM LEVEL 2.3 MG/DL (1.8-2.4); POTASSIUM SERUM 3.9 MEQ/L (3.5-5.1); SODIUM LEVEL 145 MEQ/L (136-145); TOTAL PROTEIN 6.4 GM/DL (6.4-8.2)
--- NOTE | 2019-11-22 08:32 | IPNPDOC ---
Text Note Date of Service The patient was seen on 11/22/19. NOTE No acute events overnight. He has had over 2 liters out of the NGT with brown liquid output. He denies nausea, emesis, or fevers, but he still has distention and pain in the lower abdomen. Positive flatus, no BM. VSSAF NAD abd - soft on the right and tense on the left side, TTP left side and lower abdomen. labs - below A) 78y/o male with SBO ilkely secondary to adhesions P) NGT to LIS ambulate await on return on bowel function check abd xray I have placed him on the OR schedule for lap JAS tomorrow. Kyle Courtney DO VS,Eduard, I+O VS, Eduard, I+O Laboratory Tests 11/22/19 05:56 Vital Signs Date Time Temp Pulse Resp B/P (MAP) Pulse Ox O2 Delivery O2 Flow Rate FiO2 11/22/19 06:00 98.5 87 18 154/70 (98) 93 Room Air I&O- Last 24 Hours up to 6 AM 11/22/19 05:59 Intake Total 2580 ml Output Total 1675 ml Balance 905 ml DEANDRA COURTNEY DO Nov 22, 2019 08:31
[2019-11-22] MEDS: amLODIPine 5 MG TAB PO SCH ×2 (09:10→21:06)
[2019-11-22] MEDS: NS 1,000 ML IV SCH (09:10)
--- NOTE | 2019-11-22 10:40 | REP ---
ABDOMINAL SERIES: Supine and erect views of the abdomen demonstrate no free air. There are again a few moderately dilated small bowel loops in the left upper quadrant as seen on prior hospice case manager image for CT 11/20/2019. There is air and fecal material scattered throughout nondilated colon. Nasogastric tube is seen with sideport in the stomach. Multiple metallic screws and two metallic rods are seen in the lower thoracic and lumbosacral spine. There are scattered vascular calcifications. An accompanying view of the chest demonstrates bibasilar fibrosis which is chronic with no definite superimposed acute infiltrate. The heart is normal in size and the mediastinal silhouette is unchanged. Electronically Signed by Rordigue Trinh MD 11/27/2019 05:52 P
--- NOTE | 2019-11-22 12:28 | IPNPDOC ---
Subjective Date Seen The patient was seen on 11/22/19. Subjective Chief Complaint/HPI Patient is still complaining of abdominal pain and has a lot of secretions coming out via GT Scheduled for surgery tomorrow General: Denies: ROS Unobtainable, Chills, Night Sweats, Fatigue, Malaise, Normal Appetite, Other Symptoms Constitutional: Denies: Chills, Fever, Malaise, Night Sweats, Weakness, Fatigue, Weight Loss, Lethargy, Other Pulmonary: Denies: Dyspnea, Cough, Pleuritic Chest Pain, Other Symptoms Cardiovascular: Denies: Chest Pain, Palpitations, Orthopnea, Paroxysmal Noc. Dyspnea, Edema, Lt Headedness, Other Symptoms Gastrointestinal: Reports: Abdominal Pain Musculoskeletal: Denies: Neck Pain, Back Pain, Shoulder Pain, Arm Pain, Hand Pain, Leg Pain, Foot Pain, Joint Pain, Muscle Pain, Spasms, Other Symptoms Neurological: Denies: Weakness, Numbness, Incoordination, Change in speech, Confusion, Seizures, Other Symptoms Objective Physical Examination Neck Exam: Positive: Supple Chest Exam: Positive: Clear to auscultation, Normal air movement Heart Exam: Positive: Rate Normal, Normal S1, Normal S2 Abdomen Exam: Positive: Soft, Tenderness (, generalized tenderness all over the abdomen and bowel sounds are exaggerated) Extremity Exam: Positive: Normal pulses Skin Exam: Positive: Nl turgor and temperature Assessment /Plan Problems (1) Small bowel obstruction Status: Acute Problem Specific Plan: Consult Specialist Problem Text: CT abdomen abdomen pain is consistent with SBO with clear-cut transition point Patient's WBC count is 5.8, hemoglobin 11.9 with electrolytes are normal with creatinine 1.04 Patient continues to have a abdominal symptoms and he is scheduled for laparosco py surgery tomorrow by Dr. Courtney Nothing by mouth from midnight Continue IV fluids and IV meds (2) Hypertension Status: Chronic Problem Text: Blood pressure is under well control now Continue present meds (3) BPH (benign prostatic hyperplasia) Status: Chronic Problem Text: By mouth meds on hold Restart once he is taking oral meds Plan/VTE VTE Prophylaxis Ordered?: Yes VS, I&O, 24H, Fishbone Vital Signs/I&O Vital Signs Date Time Temp Pulse Resp B/P (MAP) Pulse Ox O2 Delivery O2 Flow Rate FiO2 11/22/19 09:10 91 121/80 11/22/19 06:00 98.5 18 93 Room Air I&O- Last 24 Hours up to 6 AM 11/22/19 06:00 Intake Total 2580 ml Output Total 1795 ml Balance 785 ml Laboratory Data 24H LABS Laboratory Tests 2 11/22/19 05:56: Immature Granulocyte % (Auto) 0.2, Neutrophils (%) (Auto) 70.6H, Lymphocytes (%) (Auto) 15.2L, Monocytes (%) (Auto) 11.8H, Eosinophils (%) (Auto) 1.9, Basophils (%) (Auto) 0.3, Neutrophils # (Auto) 4.1, Lymphocytes # (Auto) 0.9L, Monocytes # (Auto) 0.7, Eosinophils # (Auto) 0.1, Basophils # (Auto) 0.0, Nucleated Red Blood Cells % (auto) 0.0, Anion Gap 10, Glomerular Filtration Rate > 60.0, Calcium Level 8.0L, Magnesium Level 2.3, Total Bilirubin 0.7, Aspartate Amino Transf (AST/SGOT) 34, Alanine Aminotransferase (ALT/SGPT) 35, Alkaline Phosphatase 59, Total Protein 6.4, Albumin 3.0L, Albumin/Globulin Ratio 0.9 CBC/BMP Laboratory Tests 11/22/19 05:56 DARYL GARCIA MD Nov 22, 2019 12:28
[2019-11-22 14:00] VITALS: BP 127/68
[2019-11-22] MEDS: RAMELTEON 8 MG TAB (ROZEREM) PO SCH (21:06)
[2019-11-22 22:00] VITALS: BP 134/77
[2019-11-23] VITALS (9 sets, daily range): BP systolic 117–163; BP diastolic 75–79
[2019-11-23] MEDS: NS 1,000 ML IV SCH ×3 (00:31→17:46)
[2019-11-23 06:12] LABS: BASO % 0.3 % (0.0-1.0); EOS % 0.4 % (0.0-3.0); HEMATOCRIT 35.8 % (42.0-52.0); HEMOGLOBIN 11.4 g/dl (13.5-17.5); LYMPH # 0.8 10^3/uL (1.5-5.0); LYMPH % 11.4 % (24.0-44.0); MEAN CORPUSCULAR HEMOGLOBIN 31.8 pg (27.0-33.0); MEAN CORPUSCULAR HGB CONC 31.8 g/dl (32.0-36.5); MONO # 0.7 10^3/uL (0.0-0.8); MONO % 9.9 % (0.0-5.0); NEUTROPHILS # 5.7 10^3/uL (1.5-8.5); NEUTROPHILS % 77.7 % (36.0-66.0); PLATELET COUNT, AUTOMATED 186 10^3/uL (150-450); RED BLOOD COUNT 3.58 10^6/uL (4.30-6.10); WHITE BLOOD COUNT 7.4 10^3/uL (4.0-10.0)
[2019-11-23 06:32] LABS: BLOOD UREA NITROGEN 26 MG/DL (7-18); CALCIUM LEVEL 8.5 MG/DL (8.8-10.2); CARBON DIOXIDE LEVEL 33 MEQ/L (21-32); CHLORIDE LEVEL 103 MEQ/L (98-107); CREATININE FOR GFR 0.94 MG/DL (0.70-1.30); GLOMERULAR FILTRATION RATE > 60.0 (>42); GLUCOSE, FASTING 70 MG/DL (70-100); POTASSIUM SERUM 3.4 MEQ/L (3.5-5.1); SODIUM LEVEL 143 MEQ/L (136-145)
[2019-11-23] MEDS: KCL 10MEQ/100ML SWI (KRUN) 10 MEQ in IV 1 EA IV SCH ×2 (08:14→10:09)
[2019-11-23] MEDS: amLODIPine 5 MG TAB PO SCH ×2 (08:20→22:08)
--- NOTE | 2019-11-23 09:57 | IPNPDOC ---
Text Note Date of Service The patient was seen on 11/23/19. NOTE No acute events overnight. He has had over 3 liters out of the NGT with brown liquid output still. He denies nausea, emesis, or fevers, but he still has distention and pain in the lower abdomen. Positive flatus, no BM. VSSAF NAD abd - soft on the right and tense on the left side, TTP left side and lower abdomen. labs - below A) 78y/o male with SBO ilkely secondary to adhesions that has failed medical therapy with bowel decompression P) NGT to LIS ambulate to the OR this afternoon for RA JAS possible bowel resection. COVID negative Kyle Courtney DO VS,Eduard, I+O VS, Eduard, I+O Laboratory Tests 11/23/19 05:36 Vital Signs Date Time Temp Pulse Resp B/P (MAP) Pulse Ox O2 Delivery O2 Flow Rate FiO2 11/23/19 08:20 77 128/64 11/23/19 06:00 99.0 17 94 Room Air I&O- Last 24 Hours up to 6 AM 11/23/19 06:00 Intake Total 3960 ml Output Total 4775 ml Balance -815 ml DEANDRA COURTNEY DO Nov 23, 2019 09:57
--- NOTE | 2019-11-23 10:44 | IPNPDOC ---
Subjective Date Seen The patient was seen on 11/23/19. Subjective Chief Complaint/HPI Patient is comfortable in no distress. Awaiting surgery General: Denies: ROS Unobtainable, Chills, Night Sweats, Fatigue, Malaise, Normal Appetite, Other Symptoms Constitutional: Denies: Chills, Fever, Malaise, Night Sweats, Weakness, Fatigue, Weight Loss, Lethargy, Other Pulmonary: Denies: Dyspnea, Cough, Pleuritic Chest Pain, Other Symptoms Cardiovascular: Denies: Chest Pain, Palpitations, Orthopnea, Paroxysmal Noc. Dyspnea, Edema, Lt Headedness, Other Symptoms Gastrointestinal: Denies: Nausea, Vomiting, Abdominal Pain, Diarrhea, Constipation, Melena, Hematochezia, Other Symptoms Musculoskeletal: Denies: Neck Pain, Back Pain, Shoulder Pain, Arm Pain, Hand Pain, Leg Pain, Foot Pain, Joint Pain, Muscle Pain, Spasms, Other Symptoms Neurological: Denies: Weakness, Numbness, Incoordination, Change in speech, Confusion, Seizures, Other Symptoms Objective Physical Examination Neck Exam: Positive: Supple Chest Exam: Positive: Clear to auscultation, Normal air movement Heart Exam: Positive: Rate Normal, Normal S1, Normal S2 Abdomen Exam: Positive: Soft, Tenderness (, generalized tenderness all over the abdomen and bowel sounds are exaggerated) Extremity Exam: Positive: Normal pulses Skin Exam: Positive: Nl turgor and temperature Assessment /Plan Problems (1) Small bowel obstruction Status: Acute Problem Specific Plan: Consult Specialist Problem Text: CT abdomen abdomen pain is consistent with SBO with clear-cut transition point Patient. WBC 7.4, hemoglobin 11.4, platelets 186, potassium this morning was 3.4, but he received KCl 10 mEq IV 2. Patient is scheduled for surgical intervention by Dr. Courtney today . He has been kept nothing by mouth from yesterday . Continue IV fluids and IV meds Postop care as per surgery (2) Hypertension Status: Chronic Problem Text: Blood pressure is under well control now Continue present meds (3) BPH (benign prostatic hyperplasia) Status: Chronic Problem Text: By mouth meds on hold Restart once he is taking oral meds Plan/VTE VTE Prophylaxis Ordered?: Yes VS, I&O, 24H, Fishbone Vital Signs/I&O Vital Signs Date Time Temp Pulse Resp B/P (MAP) Pulse Ox O2 Delivery O2 Flow Rate FiO2 11/23/19 08:20 77 128/64 11/23/19 06:00 99.0 17 94 Room Air I&O- Last 24 Hours up to 6 AM 11/23/19 06:00 Intake Total 3960 ml Output Total 4775 ml Balance -815 ml Laboratory Data 24H LABS Laboratory Tests 2 11/23/19 05:36: Immature Granulocyte % (Auto) 0.3, Neutrophils (%) (Auto) 77.7H, Lymphocytes (%) (Auto) 11.4L, Monocytes (%) (Auto) 9.9H, Eosinophils (%) (Auto) 0.4, Basophils (%) (Auto) 0.3, Neutrophils # (Auto) 5.7, Lymphocytes # (Auto) 0.8L, Monocytes # (Auto) 0.7, Eosinophils # (Auto) 0.0, Basophils # (Auto) 0.0, Nucleated Red Blood Cells % (auto) 0.0, Anion Gap 7L, Glomerular Filtration Rate > 60.0, C alcium Level 8.5L 11/23/19 08:28: Coronavirus (COVID-19)(PCR) NEGATIVE CBC/BMP Laboratory Tests 11/23/19 05:36 DARYL GARCIA MD Nov 23, 2019 10:44
[2019-11-23] MEDS ORDERED: fentaNYL 250 MCG/5 ML INJECTION (J3010) As Ordered ONE (12:59)
[2019-11-23] MEDS ORDERED: MIDAZOLAM INJ 2MG/2ML VIAL (J2250 PER 1MG) As Ordered ONE (12:59)
[2019-11-23] MEDS ORDERED: ONDANSETRON 4MG/2ML VIAL As Ordered ONE (13:00)
[2019-11-23] MEDS ORDERED: propofoL 200 MG/20 ML VIAL As Ordered ONE (13:00)
[2019-11-23] MEDS ORDERED: SUGAMMADEX SODIUM 500 MG/5 ML VIAL (BRIDION) As Ordered ONE (13:00)
[2019-11-23] MEDS ORDERED: ePHEDrine SULFATE 25 MG/5 ML(5MG/ML) SYRINGE As Ordered ONE (13:00)
[2019-11-23] MEDS ORDERED: PHENYLephrine HCL 500 MCG/5 ML (100MCG/ML) SYRINGE (J2370) As Ordered ONE (13:00)
[2019-11-23] MEDS ORDERED: dexameTHASONE 4 MG/ML 1ML VIAL (J1100 PER 1MG) As Ordered ONE (13:00)
[2019-11-23] MEDS ORDERED: ROCURONIUM BROMIDE 50 MG/5 ML VIAL As Ordered ONE ×2 (13:00→15:51)
[2019-11-23] MEDS ORDERED: LIDOCAINE 2% 100MG/5ML SDV (FOR ANES.) As Ordered ONE (13:00)
[2019-11-23] MEDS ORDERED: BUPIVACAINE/EPIN 0.25% 30 ML VIAL As Ordered ONE (14:10)
[2019-11-23] MEDS ORDERED: ceFAZolin 2 GM/D5W 50 ML IV BAG (J0690 PER 500MG) As Ordered ONE (14:22)
[2019-11-23] MEDS ORDERED: ACETAMINOPHEN 1000MG 100ML IV BTL (OFIRMEV) (J0131 PER 10MG) As Ordered ONE (14:52)
[2019-11-23] MEDS ORDERED: LR 1,000 ML IV SCH (16:45)
[2019-11-23] MEDS ORDERED: fentaNYL 100 MCG/2 ML INJECTION (J3010) IV PRN (16:45)
[2019-11-23] MEDS ORDERED: ONDANSETRON 4MG/2ML VIAL IV PRN (16:45)
[2019-11-23] MEDS ORDERED: oxyCODONE 5MG TAB PO PRN (16:45)
[2019-11-23] MEDS ORDERED: HYDROMORPHONE HCL 0.5 MG/ 0.5 ML SYRINGE (J1170 PER 1) IV PRN (16:45)
[2019-11-23] MEDS: PIPERACILLIN/TAZOBACTAM SOD 3.375 GM in D5W MINI-BAG PLUS 50 ML IV SCH ×2 (17:46→22:09)
[2019-11-23] MEDS: RAMELTEON 8 MG TAB (ROZEREM) PO SCH (22:09)
[2019-11-24] MEDS: KETOROLAC 30 MG/ML 1ML VIAL IV PRN ×2 (01:57→21:43)
[2019-11-24 02:00] VITALS: BP 117/67
[2019-11-24] MEDS: PIPERACILLIN/TAZOBACTAM SOD 3.375 GM in D5W MINI-BAG PLUS 50 ML IV SCH ×4 (05:14→23:18)
[2019-11-24 06:00] VITALS: BP 147/71
[2019-11-24 06:16] LABS: BASO % 0.2 % (0.0-1.0); HEMATOCRIT 38.4 % (42.0-52.0); HEMOGLOBIN 12.1 g/dl (13.5-17.5); LYMPH # 0.8 10^3/uL (1.5-5.0); LYMPH % 7.7 % (24.0-44.0); MEAN CORPUSCULAR HEMOGLOBIN 31.9 pg (27.0-33.0); MEAN CORPUSCULAR HGB CONC 31.5 g/dl (32.0-36.5); MEAN CORPUSCULAR VOLUME 101.3 fl (80.0-96.0); MONO # 1.1 10^3/uL (0.0-0.8); MONO % 10.5 % (0.0-5.0); NEUTROPHILS # 8.3 10^3/uL (1.5-8.5); NEUTROPHILS % 81.3 % (36.0-66.0); PLATELET COUNT, AUTOMATED 193 10^3/uL (150-450); RED BLOOD COUNT 3.79 10^6/uL (4.30-6.10); WHITE BLOOD COUNT 10.3 10^3/uL (4.0-10.0)
[2019-11-24 06:38] LABS: ALBUMIN 3.2 GM/DL (3.2-5.2); BILIRUBIN,TOTAL 0.7 MG/DL (0.2-1.0); CALCIUM LEVEL 8.7 MG/DL (8.8-10.2); CREATININE FOR GFR 1.34 MG/DL (0.70-1.30); POTASSIUM SERUM 3.5 MEQ/L (3.5-5.1); TOTAL PROTEIN 6.8 GM/DL (6.4-8.2)
[2019-11-24 10:00] VITALS: BP 146/89
[2019-11-24] MEDS: amLODIPine 5 MG TAB PO SCH ×2 (10:08→21:27)
[2019-11-24] MEDS: NS 1,000 ML IV SCH ×2 (10:22→21:27)
[2019-11-24] MEDS ORDERED: LORazepam 1 MG TAB PO ONE (12:30)
--- NOTE | 2019-11-24 12:59 | IPNPDOC ---
Subjective Date Seen The patient was seen on 11/24/19. Subjective Chief Complaint/HPI Status post surgical intervention for SBO, with a drain in place Patient is on clear liquid diet He is up postop day #1 General: Denies: ROS Unobtainable, Chills, Night Sweats, Fatigue, Malaise, Normal Appetite, Other Symptoms Constitutional: Denies: Chills, Fever, Malaise, Night Sweats, Weakness, Fa tigue, Weight Loss, Lethargy, Other Pulmonary: Denies: Dyspnea, Cough, Pleuritic Chest Pain, Other Symptoms Cardiovascular: Denies: Chest Pain, Palpitations, Orthopnea, Paroxysmal Noc. Dyspnea, Edema, Lt Headedness, Other Symptoms Gastrointestinal: Denies: Nausea, Vomiting, Abdominal Pain, Diarrhea, Constipation, Melena, Hematochezia, Other Symptoms Genitourinary: Denies: Dysuria, Frequency, Incontinence, Hematuria, Retention, Other Symptoms Musculoskeletal: Denies: Neck Pain, Back Pain, Shoulder Pain, Arm Pain, Hand Pain, Leg Pain, Foot Pain, Joint Pain, Muscle Pain, Spasms, Other Symptoms Objective Physical Examination General Exam: Positive: Alert Neck Exam: Positive: Supple Chest Exam: Positive: Clear to auscultation, Normal air movement Heart Exam: Positive: Rate Normal, Normal S1, Normal S2 Abdomen Exam: Positive: Soft, Tenderness (multiple dressings present on abdomen with drain in place) Extremity Exam: Positive: Normal pulses Skin Exam: Positive: Nl turgor and temperature Assessment /Plan Problems (1) Small bowel obstruction Status: Acute Problem Specific Plan: Consult Specialist Problem Text: CT abdomen abdomen pain is consistent with SBO with clear-cut transition point Status post surgical intervention for SBO with drain in place Patient is on clear liquid diet Pain management as per orders Further recommendations as per surgery (2) Hypertension Status: Chronic Problem Text: Blood pressure is under well control now Continue present meds (3) BPH (benign prostatic hyperplasia) Status: Chronic Problem Text: By mouth meds on hold Restart once he is taking oral meds Plan/VTE VTE Prophylaxis Ordered?: Yes VS, I&O, 24H, Fishbone Vital Signs/I&O Vital Signs Date Time Temp Pulse Resp B/P (MAP) Pulse Ox O2 Delivery O2 Flow Rate FiO2 11/24/19 10:08 81 152/71 11/24/19 06:00 98.5 20 94 Room Air 11/23/19 16:20 10 I&O- Last 24 Hours up to 6 AM 11/24/19 06:00 Intake Total 4682 ml Output Total 2875 ml Balance 1807 ml Laboratory Data 24H LABS Laboratory Tests 2 11/24/19 05:55: Immature Granulocyte % (Auto) 0.3, Neutrophils (%) (Auto) 81.3H, Lymphocytes (%) (Auto) 7.7L, Monocytes (%) (Auto) 10.5H, Eosinophils (%) (Auto) 0.0, Basophils (%) (Auto) 0.2, Neutrophils # (Auto) 8.3, Lymphocytes # (Auto) 0.8L, Monocytes # (Auto) 1.1H, Eosinophils # (Auto) 0.0, Basophils # (Auto) 0.0, Nucleated Red Blo od Cells % (auto) 0.0, Anion Gap 10, Glomerular Filtration Rate 55.0, Calcium Level 8.7L, Total Bilirubin 0.7, Aspartate Amino Transf (AST/SGOT) 21, Alanine Aminotransferase (ALT/SGPT) 26, Alkaline Phosphatase 56, Total Protein 6.8, Albumin 3.2, Albumin/Globulin Ratio 0.9 CBC/BMP Laboratory Tests 11/24/19 05:55 DARYL GARCIA MD Nov 24, 2019 12:59
[2019-11-24 14:00] VITALS: BP 142/87
--- NOTE | 2019-11-24 17:17 | IPNPDOC ---
Text Note Date of Service The patient was seen on 11/24/19. NOTE No acute events overnight. He is very combative and aggressive towards everyone this am. He is swearing at everyone and feels like we are starving him. He is not listening to me or answering any of my questions. I spoke with his sister after I left his room, and she is going to try calling him. VSSAF NAD abd - unable to examine this am labs - below A) 78y/o male with SBO secondary to adhesions that has failed medical therapy with bowel decompression POD#1 s/p RA JAS P) NGT to LIS clq diet ambulate await return of bowel function Kyle Courtney DO VS,Eduard, I+O VS, Eduard, I+O Laboratory Tests 11/24/19 05:55 Vital Signs Date Time Temp Pulse Resp B/P (MAP) Pulse Ox O2 Delivery O2 Flow Rate FiO2 11/24/19 10:08 81 152/71 11/24/19 06:00 98.5 20 94 Room Air 11/23/19 16:20 10 I&O- Last 24 Hours up to 6 AM 11/24/19 06:00 Intake Total 4682 ml Output Total 2875 ml Balance 1807 ml DEANDRA COURTNEY DO Nov 24, 2019 17:17
[2019-11-24] MEDS: RAMELTEON 8 MG TAB (ROZEREM) PO SCH (21:27)
[2019-11-24 22:00] VITALS: BP 140/88
[2019-11-25 02:00] VITALS: BP 125/64
[2019-11-25] MEDS: NS 1,000 ML IV SCH ×3 (03:17→23:17)
[2019-11-25] MEDS: PIPERACILLIN/TAZOBACTAM SOD 3.375 GM in D5W MINI-BAG PLUS 50 ML IV SCH ×4 (05:20→23:33)
[2019-11-25 06:00] VITALS: BP 143/72
[2019-11-25 06:10] LABS: BASO % 0.1 % (0.0-1.0); HEMATOCRIT 35.2 % (42.0-52.0); HEMOGLOBIN 11.3 g/dl (13.5-17.5); LYMPH # 0.8 10^3/uL (1.5-5.0); LYMPH % 8.2 % (24.0-44.0); MEAN CORPUSCULAR HEMOGLOBIN 32.3 pg (27.0-33.0); MEAN CORPUSCULAR HGB CONC 32.1 g/dl (32.0-36.5); MEAN CORPUSCULAR VOLUME 100.6 fl (80.0-96.0); MONO % 9.9 % (0.0-5.0); NEUTROPHILS # 8.1 10^3/uL (1.5-8.5); NEUTROPHILS % 81.3 % (36.0-66.0); PLATELET COUNT, AUTOMATED 171 10^3/uL (150-450)
[2019-11-25 06:46] LABS: ALBUMIN 2.6 GM/DL (3.2-5.2); ALT/SGPT 19 U/L (12-78); BILIRUBIN,TOTAL 0.6 MG/DL (0.2-1.0); BLOOD UREA NITROGEN 16 MG/DL (7-18); CALCIUM LEVEL 8.2 MG/DL (8.8-10.2); CARBON DIOXIDE LEVEL 35 MEQ/L (21-32); CHLORIDE LEVEL 105 MEQ/L (98-107); CREATININE FOR GFR 1.16 MG/DL (0.70-1.30); GLOMERULAR FILTRATION RATE > 60.0 (>42); GLUCOSE, FASTING 111 MG/DL (70-100); POTASSIUM SERUM 2.9 MEQ/L (3.5-5.1); SODIUM LEVEL 145 MEQ/L (136-145); TOTAL PROTEIN 6.6 GM/DL (6.4-8.2)
--- NOTE | 2019-11-25 07:18 | IPNPDOC ---
Text Note Date of Service The patient was seen on 11/25/19. NOTE No acute events overnight. He did have some ativan yesterday which resulted in a fall. No apparent injuries at the time, and no imaging was ordered. He is more pleasant this am. Denies flatus or BM, and he is slightly more distended this am. VSSAF NAD abd - slightly distended, NT, drain is serosanguinous labs - below A) 78y/o male with SBO secondary to adhesions that has failed medical therapy with bowel decompression POD#2 s/p RA JAS P) clamp NGT clq diet mag citrate down the NG ambulate await return of bowel function Kyle Courtney DO VS,Eduard, I+O VS, Eduard, I+O Laboratory Tests 11/25/19 05:33 Vital Signs Date Time Temp Pulse Resp B/P (MAP) Pulse Ox O2 Delivery O2 Flow Rate FiO2 11/25/19 06:00 97.3 56 18 143/72 (95) 94 Room Air 11/23/19 16:20 10 I&O- Last 24 Hours up to 6 AM 11/25/19 06:00 Intake Total 5000 ml Output Total 570 ml Balance 4430 ml DEANDRA COURTNEY DO Nov 25, 2019 07:18
[2019-11-25] MEDS ORDERED: MAGNESIUM CITRATE 300 ML BTL PO ONE (08:00)
[2019-11-25] MEDS: KCL 10MEQ/100ML SWI (KRUN) 10 MEQ in IV 1 EA IV SCH ×3 (08:14→11:24)
[2019-11-25] MEDS: amLODIPine 5 MG TAB PO SCH ×2 (08:16→21:21)
[2019-11-25] MEDS: KETOROLAC 30 MG/ML 1ML VIAL IV PRN (09:12)
[2019-11-25 10:00] VITALS: BP 138/72
--- NOTE | 2019-11-25 11:04 | IPNPDOC ---
Subjective Date Seen The patient was seen on 11/25/19. Subjective Chief Complaint/HPI Patient is less angry today and as per patient, he is in a good mood is not verbally or physically abusive to staff today . He is still complaining of being in the hospital and about his surgery and not able to eat General: Reports: Other Symptoms (unable to obtained review of systems as patient is noncooperative) Objective Physical Examination Neck Exam: Positive: Supple Chest Exam: Positive: Clear to auscultation, Normal air movement Heart Exam: Positive: Rate Normal, Normal S1, Normal S2 Abdomen Exam: Positive: Soft, Tenderness (multiple dressings present on abdomen with drain in place) Extremity Exam: Positive: Normal pulses Skin Exam: Positive: Nl turgor and temperature Assessment /Plan Problems (1) Small bowel obstruction Status: Acute Problem Specific Plan: Consult Specialist Problem Text: 78y/o male with SBO secondary to adhesions that has failed medical therapy with bowel decompression POD#2 s/p RA JAS NG tube in place Makes it started while NG tube water by surgery Ambulate as possible Continue pain management On clear liquid diet Further, as per surgical recommendations (2) Hypertension Status: Chronic Problem Text: Blood pressure is under well control now Continue present meds (3) BPH (benign prostatic hyperplasia) Status: Chronic Problem Text: By mouth meds on hold Restart once he is taking oral meds (4) Hypokalemia Status: Acute Problem Text: KCl 10 mEq IV 3 ordered Repeat level ar 1400hrs Will provide more potassium if needed A.m. labs Plan/VTE VTE Prophylaxis Ordered?: Yes VS, I&O, 24H, [facility] Vital Signs/I&O Vital Signs Date Time Temp Pulse Resp B/P (MAP) Pulse Ox O2 Delivery O2 Flow Rate FiO2 11/25/19 10:00 97.3 57 20 138/72 (94) 98 Room Air 11/23/19 16:20 10 I&O- Last 24 Hours up to 6 AM 11/25/19 06:00 Intake Total 5000 ml Output Total 570 ml Balance 4430 ml Laboratory Data 24H LABS Laboratory Tests 2 11/25/19 05:33: Immature Granulocyte % (Auto) 0.5, Neutrophils (%) (Auto) 81.3H, Lymphocytes (%) (Auto) 8.2L, Monocytes (%) (Auto) 9.9H, Eosinophils (%) (Auto) 0.0, Basophils (%) (Auto) 0.1, Neutrophils # (Auto) 8.1, Lymphocytes # (Auto) 0.8L, Monocytes # (Auto) 1.0H, Eosinophils # (Auto) 0.0, Basophils # (Auto) 0.0, Nucleated Red Blood Cells % (auto) 0.0, Anion Gap 5L, Glomerular Filtration Rate > 60.0, Calcium Level 8.2L, Total Bilirubin 0.6, Aspartate Amino Transf (AST/SGOT) 14, Alanine Aminotransferase (ALT/SGPT) 19, Alkaline Phosphatase 50, Total Protein 6.6, Albumin 2.6L, Albumin/Globulin Ratio 0.7 CBC/BMP Laboratory Tests 11/25/19 05:33 DARYL GARCIA MD Nov 25, 2019 11:04
[2019-11-25 14:00] VITALS: BP 141/71
[2019-11-25 14:46] LABS: BLOOD UREA NITROGEN 15 MG/DL (7-18); CALCIUM LEVEL 8.1 MG/DL (8.8-10.2); CARBON DIOXIDE LEVEL 32 MEQ/L (21-32); CHLORIDE LEVEL 104 MEQ/L (98-107); CREATININE FOR GFR 1.04 MG/DL (0.70-1.30); GLOMERULAR FILTRATION RATE > 60.0 (>42); GLUCOSE, FASTING 126 MG/DL (70-100); MAGNESIUM LEVEL 2.5 MG/DL (1.8-2.4); POTASSIUM SERUM 3.2 MEQ/L (3.5-5.1); SODIUM LEVEL 140 MEQ/L (136-145)
[2019-11-25] MEDS: RAMELTEON 8 MG TAB (ROZEREM) PO SCH (21:20)
[2019-11-25 22:00] VITALS: BP 153/71
[2019-11-26] MEDS ORDERED: MORPHINE 2 MG/ML 1ML VIAL (J2270) IV ONE (00:45)
[2019-11-26] MEDS: PIPERACILLIN/TAZOBACTAM SOD 3.375 GM in D5W MINI-BAG PLUS 50 ML IV SCH ×4 (05:18→23:25)
[2019-11-26 05:41] LABS: BASO % 0.2 % (0.0-1.0); EOS # 0.3 10^3/uL (0.0-0.5); EOS % 2.5 % (0.0-3.0); HEMATOCRIT 34.4 % (42.0-52.0); HEMOGLOBIN 10.7 g/dl (13.5-17.5); LYMPH # 1.3 10^3/uL (1.5-5.0); LYMPH % 12.2 % (24.0-44.0); MEAN CORPUSCULAR HEMOGLOBIN 31.4 pg (27.0-33.0); MEAN CORPUSCULAR HGB CONC 31.1 g/dl (32.0-36.5); MEAN CORPUSCULAR VOLUME 100.9 fl (80.0-96.0); MONO % 8.9 % (0.0-5.0); NEUTROPHILS # 8.2 10^3/uL (1.5-8.5); NEUTROPHILS % 75.8 % (36.0-66.0); PLATELET COUNT, AUTOMATED 167 10^3/uL (150-450); RED BLOOD COUNT 3.41 10^6/uL (4.30-6.10); WHITE BLOOD COUNT 10.8 10^3/uL (4.0-10.0)
[2019-11-26 06:00] VITALS: BP 149/72
[2019-11-26 06:14] LABS: ALBUMIN 2.5 GM/DL (3.2-5.2); ALT/SGPT 18 U/L (12-78); BILIRUBIN,TOTAL 0.8 MG/DL (0.2-1.0); BLOOD UREA NITROGEN 12 MG/DL (7-18); CALCIUM LEVEL 7.7 MG/DL (8.8-10.2); CARBON DIOXIDE LEVEL 31 MEQ/L (21-32); CHLORIDE LEVEL 104 MEQ/L (98-107); CREATININE FOR GFR 0.95 MG/DL (0.70-1.30); GLOMERULAR FILTRATION RATE > 60.0 (>42); GLUCOSE, FASTING 85 MG/DL (70-100); POTASSIUM SERUM 3.3 MEQ/L (3.5-5.1); SODIUM LEVEL 142 MEQ/L (136-145); TOTAL PROTEIN 5.9 GM/DL (6.4-8.2)
[2019-11-26] MEDS: NS 1,000 ML IV SCH (08:44)
[2019-11-26] MEDS: amLODIPine 5 MG TAB PO SCH ×2 (08:44→20:58)
[2019-11-26] MEDS ORDERED: POTASSIUM CHLORIDE 10 MEQ SR TABLET PO ONE (10:00)
--- NOTE | 2019-11-26 11:31 | IPNPDOC ---
Text Note Date of Service The patient was seen on 11/26/19. NOTE No acute events overnight. Denies nausea, emesis, or fevers. He is tolerating diet with NG clamped and has had a few BMs. VSSAF NAD abd - slightly distended, NT, drain is serosanguinous labs - below A) 78y/o male with SBO secondary to adhesions that has failed medical therapy with bowel decompression POD#3 s/p RA JAS P) dc ngt advance diet miralax BID ambulate PT Kyle Courtney DO VS,Fishbone, I+O VS, Fishbone, I+O Laboratory Tests 11/25/19 14:16 11/26/19 05:24 Vital Signs Date Time Temp Pulse Resp B/P (MAP) Pulse Ox O2 Delivery O2 Flow Rate FiO2 11/26/19 08:44 54 150/73 11/26/19 06:00 98.2 16 96 Room Air 11/23/19 16:20 10 I&O- Last 24 Hours up to 6 AM 11/26/19 06:00 Intake Total 2540 ml Output Total 1720 ml Balance 820 ml DEANDRA COURTNEY DO Nov 26, 2019 11:31
[2019-11-26] MEDS: MIRALAX *UNIT DOSE* 17GM PACKET PO SCH ×3 (12:19→20:53)
--- NOTE | 2019-11-26 13:55 | IPNPDOC ---
Subjective Date Seen The patient was seen on 11/26/19. Subjective Chief Complaint/HPI Patient is tolerating clear liquid diets. He is in a good mood today and wishes to go home soon General: Denies: ROS Unobtainable, Chills, Night Sweats, Fatigue, Malaise, Normal Appetite, Other Symptoms Constitutional: Denies: Chills, Fever, Malaise, Night Sweats, Weakness, Fatigue, Weight Loss, Lethargy, Other Pulmonary: Denies: Dyspnea, Cough, Pleuritic Chest Pain, Other Symptoms Cardiovascular: Denies: Chest Pain, Palpitations, Orthopnea, Paroxysmal Noc. Dyspnea, Edema, Lt Headedness, Other Symptoms Gastrointestinal: Reports: Other Symptoms (and the mom abdominal pain) Endocrine: Denies: Polydipsia, Polyphagia, Polyuria, Heat Intolerance, Cold Intolerance, Other Endocrine Sx Musculoskeletal: Denies: Neck Pain, Back Pain, Shoulder Pain, Arm Pain, Hand Pain, Leg Pain, Foot Pain, Joint Pain, Muscle Pain, Spasms, Other Symptoms Neurological: Denies: Weakness, Numbness, Incoordination, Change in speech, Confusion, Seizures, Other Symptoms Objective Physical Examination General Exam: Positive: Alert, Cooperative Neck Exam: Positive: Supple Chest Exam: Positive: Clear to auscultation, Normal air movement Heart Exam: Positive: Rate Normal, Normal S1, Normal S2 Abdomen Exam: Positive: Soft, Tenderness (multiple dressings present on abdomen with drain in place) Extremity Exam: Positive: Normal pulses Skin Exam: Positive: Nl turgor and temperature Assessment /Plan Problems (1) Small bowel obstruction Status: Acute Problem Specific Plan: Consult Specialist Problem Text: 78y/o male with SBO secondary to adhesions that has failed medical therapy with bowel decompression POD#3 s/p RA JAS NG tube will be removed today Will advance diet to regular Ambulation as possible PT consult called [facility] twice a day Discharge once cleared from surgery (2) Hypertension Status: Chronic Problem Text: Blood pressure is under well control now Continue present meds (3) BPH (benign prostatic hyperplasia) Status: Chronic Problem Text: By mouth meds on hold Restart once he is taking oral meds (4) Hypokalemia Status: Acute Problem Text: Potassium level is 3.3 today KCl 40-mEQ by mouth 1 given Check serum potassium and magnesium level in a.m. Plan/VTE VTE Prophylaxis Ordered?: Yes VS, I&O, 24H, Fishbone Vital Signs/I&O Vital Signs Date Time Temp Pulse Resp B/P (MAP) Pulse Ox O2 Delivery O2 Flow Rate FiO2 11/26/19 08:44 54 150/73 11/26/19 06:00 98.2 16 96 Room Air 11/23/19 16:20 10 I&O- Last 24 Hours up to 6 AM 11/26/19 06:00 Intake Total 2540 ml Output Total 1720 ml Balance 820 ml Laboratory Data 24H LABS Laboratory Tests 2 11/25/19 14:16: Anion Gap 4L, Glomerular Filtration Rate > 60.0, Calcium Level 8.1L, Magnesium Level 2.5H 11/26/19 05:24: Anion Gap 7L, Glomerular Filtration Rate > 60.0, Calcium Level 7.7L, Immature Granulocyte % (Auto) 0.4, Neutrophils (%) (Auto) 75.8H, Lymphocytes (%) (Auto) 12.2L, Monocytes (%) (Auto) 8.9H, Eosinophils (%) (Auto) 2.5, Basophils (%) (Auto) 0.2, Neutrophils # (Auto) 8.2, Lymphocytes # (Auto) 1.3L, Monocytes # (Auto) 1.0H, Eosinophils # (Auto) 0.3, Basophils # (Auto) 0.0, Nucleated Red Blood Cells % (auto) 0.0, Total Bilirubin 0.8, Aspartate Amino Transf (AST/SGOT) 20, Alanine Aminotransferase (ALT/SGPT) 18, Alkaline Phosphatase 51, Total Protein 5.9L, Albumin 2.5L, Albumin/Globulin Ratio 0.7 CBC/BMP Laboratory Tests 11/25/19 14:16 11/26/19 05:24 DARYL GARCIA MD Nov 26, 2019 13:55
[2019-11-26 14:00] VITALS: BP 117/60
[2019-11-26] MEDS: RAMELTEON 8 MG TAB (ROZEREM) PO SCH (20:57)
[2019-11-26 22:00] VITALS: BP 145/69
[2019-11-27] MEDS: PIPERACILLIN/TAZOBACTAM SOD 3.375 GM in D5W MINI-BAG PLUS 50 ML IV SCH (05:02)
[2019-11-27 06:00] VITALS: BP 147/68
[2019-11-27 06:45] LABS: BASO % 0.2 % (0.0-1.0); EOS # 0.3 10^3/uL (0.0-0.5); EOS % 3.2 % (0.0-3.0); HEMATOCRIT 34.8 % (42.0-52.0); HEMOGLOBIN 11.4 g/dl (13.5-17.5); LYMPH % 10.5 % (24.0-44.0); MEAN CORPUSCULAR HEMOGLOBIN 32.7 pg (27.0-33.0); MEAN CORPUSCULAR HGB CONC 32.8 g/dl (32.0-36.5); MEAN CORPUSCULAR VOLUME 99.7 fl (80.0-96.0); MONO # 0.8 10^3/uL (0.0-0.8); NEUTROPHILS # 7.5 10^3/uL (1.5-8.5); NEUTROPHILS % 77.7 % (36.0-66.0); PLATELET COUNT, AUTOMATED 200 10^3/uL (150-450); RED BLOOD COUNT 3.49 10^6/uL (4.30-6.10); WHITE BLOOD COUNT 9.7 10^3/uL (4.0-10.0)
[2019-11-27 07:12] LABS: ALBUMIN 2.4 GM/DL (3.2-5.2); ALT/SGPT 25 U/L (12-78); BILIRUBIN,TOTAL 0.6 MG/DL (0.2-1.0); BLOOD UREA NITROGEN 12 MG/DL (7-18); CALCIUM LEVEL 8.2 MG/DL (8.8-10.2); CARBON DIOXIDE LEVEL 28 MEQ/L (21-32); CHLORIDE LEVEL 107 MEQ/L (98-107); CREATININE FOR GFR 0.96 MG/DL (0.70-1.30); GLOMERULAR FILTRATION RATE > 60.0 (>42); GLUCOSE, FASTING 96 MG/DL (70-100); POTASSIUM SERUM 3.9 MEQ/L (3.5-5.1); SODIUM LEVEL 141 MEQ/L (136-145)
--- NOTE | 2019-11-27 08:17 | IPNPDOC ---
Text Note Date of Service The patient was seen on 11/27/19. NOTE No acute events overnight. Denies nausea, emesis, or fevers. He is tolerating diet and has had a few BMs. VSSAF NAD abd - non distended, NT, drain is serosanguinous labs - below A) 78y/o male with SBO secondary to adhesions that has failed medical therapy with bowel decompression POD#4 s/p RA JAS P) reg diet miralax PRN ambulate PT d/c drain stable for d/c from surgical standpoint Kyle Courtney DO VS,Fishbone, I+O VS, Fishbone, I+O Laboratory Tests 11/27/19 06:22 Vital Signs Date Time Temp Pulse Resp B/P (MAP) Pulse Ox O2 Delivery O2 Flow Rate FiO2 11/27/19 06:00 98.3 53 16 147/68 (94) 95 Room Air 11/23/19 16:20 10 I&O- Last 24 Hours up to 6 AM 11/27/19 05:59 Intake Total 990 ml Output Total 965 ml Balance 25 ml DEANDRA COURTNEY DO Nov 27, 2019 08:17
[2019-11-27] MEDS ORDERED: MIRALAX *UNIT DOSE* 17GM PACKET PO PRN (08:30)
[2019-11-27 09:05] VITALS: BP 141/74
[2019-11-27] MEDS: amLODIPine 5 MG TAB PO SCH (09:05)
[2019-11-27] MEDS ORDERED: FLAG500T PO (10:53)
[2019-11-27] MEDS ORDERED: CEFD1CAP8 PO (10:53)
--- NOTE | 2019-11-27 15:55 | RO ---
DATE OF PROCEDURE: 11/23/2019 PREOPERATIVE DIAGNOSIS: Small bowel obstruction. POSTOPERATIVE DIAGNOSIS: Small bowel obstruction secondary to adhesions. PROCEDURE: Robotic lysis of adhesions with repair of small bowel enterotomy times one. SURGEON: Dr. Rodrigue Courtney. ASSISTANT BROKER: ZAMZAM Marte. ANESTHESIA: General. ESTIMATED BLOOD LOSS: 5 mL COMPLICATIONS: None. INDICATIONS FOR PROCEDURE: The patient is a 78-year-old male who has been in the hospital for the past 4 days with small bowel obstruction. Recommendation to proceed with robotic lysis of adhesions, possible bowel resection if necessary. Risks and benefits of the procedure not limited to but including bleeding, infection, hernia formation, damage to surrounding structures need for further surgery discussed in detail with the patient informed consent was obtained and procedure was planned. DESCRIPTION OF PROCEDURE: The patient brought back to operating room 7. After sufficient sedation, the abdomen was sterilely prepped and draped. Next time- out was done to confirm proper patient, proper procedure. Following that an 8 mm incision made in the left upper quadrant, Veress needle was inserted and it was insufflated to 15 mmHg. Veress needle was then removed. 8 mm Optiview port used to gain access to the abdomen. Once the abdomen was entered, there multiple adhesions along the left side the abdomen. However, I was able to find a window over to the right side where it was free and placed two more robotic ports, one in the right upper quadrant and one just to the right of midline in the epigastric area. Next, the robot was connected to the ports. The abdomen was examined from the console. Most of small bowel loops were all matted down throughout the pelvis and up into the lateral left pelvic wall. Starting in the pelvis, I slowly mobilized each loop one at a time. Since he had been decompressed for so long with the nasogastric tube (NG) tube is very difficult to determine an exact transition point based off of the obvious diameter of the small bowel. However, after tracing back from the terminal ileum proximal, I did find one location where there was a definite tight kink in the small intestine. It was right in that area where it was inflamed and caused a small enterotomy upon mobilization of it. The enterotomy was less than a centimeter in size. It was oversewn with interrupted #3-0 Vicryl sutures. Once that was repaired, the small bowel was continued to mobilize until that strictured area was all freed up from all the adhesions. The rest of small bowel loops were then freed up out of the pelvis. Once that was completed the 19-[place] Elder drain was placed right next to where the enterotomy had been created, brought out through the right lateral port site. The abdomen was then desufflated. The rest of the ports were removed. Skin incisions were closed #4-0 Vicryl subcuticular sutures. The drain was sutured in place with a #2-0 silk suture and was then cleaned and dried. 4x4, Steri-Strips and tape were applied thus ending procedure. edited: 11/28/2019 [id number] [id number]
--- NOTE | 2019-11-27 23:14 | DS.PDOC ---
Discharge Summary General Date of Admission Nov 20, 2019 at 02:48 Date of Discharge 11/27/19 Discharge Summary PROCEDURES PERFORMED DURING STAY: Robotic lysis of adhesions with repair of small bowel enterotomy times one on 11/23/19 DISCHARGE DIAGNOSES: SBO due to adhesions. SECONDARY DIAGNOSIS: Hypertension BPH s/p TURP Chronic constipation Chronic narcotic use. 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 HISTORY OF PRESENT ILLNESS: See History and physical HOSPITAL COURSE: This is a 78 years old white male with past medical history of hypertension, Parkinson's disease, Hyperlipidemia BPH, Chronic back pain and neck pain, chronic narcotic use, chronic constipation history of alcohol and tobacco abuse in the past, anxiety disorder, history of SBOs presented to the ER with chief complaints of generalized abdominal pain with nausea and no BM since last 3 days. Patient was found to have another episode of SBO. Initially patient was managed conservatively with NG tube, Bowel rest, IVF without resolution in the SBO after 4 days. So the pateitn was taken to OR on and surgically decompressed. He had robotic lysis of adhesions and mobilization of the matted loops of small bowel. A small enterotomy < 1 cm was created during mobilization of the small bowel loops at the site of the tight kink which was inflamed. This was repaired. Postoperatively patient did well . Patient was continued on zosyn in the hospital which was switched to cefdinir and metronidazole on discharge. DISCHARGE MEDICATIONS: Please see below. ALLERGIES: Please see below. PHYSICAL EXAMINATION ON DISCHARGE: VITAL SIGNS: Please see below. General Exam: Positive: Alert, Cooperative, sitting up in chair in no discomfort. Neck Exam: Positive: Supple, no JVD Chest Exam: Positive: Clear to auscultation, Normal air movement Heart Exam: Positive: Rate Normal, Normal S1, Normal S2, no rub, murmur or gallop Abdomen Exam: Positive: Soft, No Tenderness (multiple dressings present on abdomen) Extremity Exam: Positive: Normal pulses, no edema Skin Exam: Positive: Nl turgor and temperature LABORATORY DATA: Please see below. ACTIVITY: [As tolerated]. DIET: As tolerated DISPOSITION: 01 Home, Self-Care. DISCHARGE INSTRUCTIONS: Follow up With Dr Courtney in 1 week PMD in 2 weeks DISCHARGE CONDITION: [Stable]. TIME SPENT ON DISCHARGE: 35 minutes. Vital Signs/I&Os Vital Signs Date Time Temp Pulse Resp B/P (MAP) Pulse Ox O2 Delivery O2 Flow Rate FiO2 11/27/19 09:05 60 141/74 11/27/19 06:00 98.3 16 95 Room Air 11/23/19 16:20 10 I&O- Last 24 Hours up to 6 AM 11/27/19 06:59 Intake Total 1040 ml Output Total 1205 ml Balance -165 ml Laboratory Data Labs 24H Laboratory Tests 2 11/27/19 06:22: Immature Granulocyte % (Auto) 0.4, Neutrophils (%) (Auto) 77.7H, Lymphocytes (%) (Auto) 10.5L, Monocytes (%) (Auto) 8.0H, Eosinophils (%) (Auto) 3.2H, Basophils (%) (Auto) 0.2, Neutrophils # (Auto) 7.5, Lymphocytes # (Auto) 1.0L, Monocytes # (Auto) 0.8, Eosinophils # (Auto) 0.3, Basophils # (Auto) 0.0, Nucleated Red Blood Cells % (auto) 0.0, Anion Gap 6L, Glomerular Filtration Rate > 60.0, Calcium Level 8.2L, Total Bilirubin 0.6, Aspartate Amino Transf (AST/SGOT) 18, Alanine Aminotransferase (ALT/SGPT) 25, Alkaline Phosphatase 53, Total Protein 6.0L, Albumin 2.4L, Albumin/Globulin Ratio 0.7 CBC/BMP Laboratory Tests 11/27/19 06:22 Discharge Medications Scheduled Alfuzosin HCl (Alfuzosin HCl ER) 10 Mg Tab, 10 MG PO DAILY, (Reported) Amitriptyline HCl (Amitriptyline HCl) 50 Mg Tab, 50 MG PO QHS, (Reported) Amlodipine Besylate (Amlodipine Besylate) 5 Mg Tab, 5 MG PO BID, (Reported) Carbidopa/Levodopa (Carbidopa-Levodopa 25-100 Tab) 1 Each Tablet, 1 TAB PO BID, (Reported) Cefdinir (Cefdinir) 300 Mg Capsule, 1 CAP PO BID Docusate Sodium (Stool Softener) 100 Mg Cap, 100 MG PO BID, (Reported) Finasteride (Finasteride) 5 Mg Tab, 5 MG PO DAILY, (Reported) Losartan Potassium (Losartan Potassium) 100 Mg Tab, 100 MG PO DAILY, (Reported) Metronidazole (Flagyl) 500 Mg Tablet, 500 MG PO Q8H Psyllium Husk (Psyllium Husk) 1 Pow Pow, 1 POW PO DAILY, (Reported) Rosuvastatin Calcium (Rosuvastatin Calcium) 20 Mg Tablet, 20 MG PO QHS, (Reported) Tramadol HCl (Tramadol HCl) 50 Mg Tab, 50 MG PO TID, (Reported) [Sominex] , 1 TAB PO QHS, (Reported) Scheduled PRN Acetaminophen (Tylenol Extra Strength) 500 Mg Tablet, 1,000 MG PO TID PRN for PAIN / FEVER, (Reported) Polyethylene Glycol 3350 (Miralax) 1 Pow Pow, 17 GM PO DAILY PRN for CONSTIPATION, (Reported) Allergies Coded Allergies: No Known Allergies (Unverified , 09/29/18) LEONELA CONTRERAS MD Nov 27, 2019 23:14
== END 2019-11-27 12:38 | disposition home or self-care (01) | DRG 331 ==
LOC: M ED 00:07 → EDBD 00:07 → M ED INP 02:48 → ENRESERV 03:09 → M MSPAV 04:07
PROVIDERS: ADMIT Internal Medicine; ATTEND Internal Medicine Nephrology
PROC: 0DN84ZZ Release Small Intestine, Percutaneous Endoscopic Approach (ICD-10-PCS; 2019-11-23)
PROC: 8E0W0CZ Robotic Assisted Procedure of Trunk Region, Open Approach (ICD-10-PCS; 2019-11-23)
PROC: 0DQ84ZZ Repair Small Intestine, Percutaneous Endoscopic Approach (ICD-10-PCS; principal; 2019-11-23 12:45)
DX: K56.50 Intestinal adhesions [bands], unspecified as to partial versus complete obstruction (principal); I10 Essential (primary) hypertension; E87.6 Hypokalemia; G20 Parkinson's disease; K59.00 Constipation, unspecified; F11.90 Opioid use, unspecified, uncomplicated; E78.5 Hyperlipidemia, unspecified; M54.5 Low back pain; M54.2 Cervicalgia; F41.9 Anxiety disorder, unspecified; F32.9 Major depressive disorder, single episode, unspecified; K70.0 Alcoholic fatty liver; M10.9 Gout, unspecified; Z87.891 Personal history of nicotine dependence; E53.8 Deficiency of other specified B group vitamins; D18.09 Hemangioma of other sites; Z79.899 Other long term (current) drug therapy; N40.0 Benign prostatic hyperplasia without lower urinary tract symptoms

== ENCOUNTER 2019-12-03 01:39 | Inpatient (IN) | payer MEDICARE, BC, OTHER ==
[~2019-12-03] VITALS: Ht 170.2 cm; Wt 64.0 kg
[~2019-12-03 01:39] MED LIST changes: +CEFD1CAP8 PO; +FLAG500T PO
[2019-12-03 02:23] LABS: BASO % 0.2 % (0.0-1.0); EOS # 0.1 10^3/uL (0.0-0.5); EOS % 0.7 % (0.0-3.0); HEMATOCRIT 37.4 % (42.0-52.0); HEMOGLOBIN 12.1 g/dl (13.5-17.5); LYMPH # 0.9 10^3/uL (1.5-5.0); LYMPH % 6.7 % (24.0-44.0); MEAN CORPUSCULAR HEMOGLOBIN 31.9 pg (27.0-33.0); MEAN CORPUSCULAR HGB CONC 32.4 g/dl (32.0-36.5); MEAN CORPUSCULAR VOLUME 98.7 fl (80.0-96.0); MONO # 1.3 10^3/uL (0.0-0.8); MONO % 9.7 % (0.0-5.0); NEUTROPHILS % 82.3 % (36.0-66.0); PLATELET COUNT, AUTOMATED 389 10^3/uL (150-450); RED BLOOD COUNT 3.79 10^6/uL (4.30-6.10); WHITE BLOOD COUNT 13.4 10^3/uL (4.0-10.0)
[2019-12-03 02:33] LABS: INR 1.06; PROTHROMBIN TIME 13.5 SECONDS (11.8-14.0)
[2019-12-03 02:46] LABS: ALBUMIN 3.2 GM/DL (3.2-5.2); ALT/SGPT 35 U/L (12-78); BILIRUBIN,DIRECT 0.2 MG/DL (0.0-0.2); BILIRUBIN,TOTAL 0.4 MG/DL (0.2-1.0); CK-MB VALUE MASS 2.4 NG/ML (<3.6); CPK CREATINE PHOSPHOKINASE 87 U/L (39-308); LIPASE 39 U/L (73-393); MB/CK RELATIVE INDEX 2.76 (< OR =4); TOTAL PROTEIN 7.3 GM/DL (6.4-8.2); TROPONIN I < 0.02 NG/ML (< 0.10)
[2019-12-03] MEDS ORDERED: ISOVUE-370 76% 100ML VIAL As Ordered ONE (03:28)
[2019-12-03] MEDS ORDERED: MORPHINE 4 MG/ML 1ML VIAL/SYRINGE (J2270) IV PRN (03:30)
[2019-12-03] MEDS ORDERED: ONDANSETRON 4MG/2ML VIAL IV ONE (03:30)
--- NOTE | 2019-12-03 04:56 | REPVR ---
PROCEDURE INFORMATION: Exam: CT Abdomen And Pelvis With Contrast Exam date and time: 12/03/2019 3:55 AM Age: 78 years old Clinical indication: Abdominal pain; Additional info: Generalized abd pain, recent sbo with resection TECHNIQUE: Imaging protocol: Computed tomography of the abdomen and pelvis with intravenous contrast. Radiation optimization: All CT scans at this facility use at least one of these dose optimization techniques: automated exposure control; mA and/or kV adjustment per patient size (includes targeted exams where dose is matched to clinical indication); or iterative reconstruction. Contrast material: ISO 370; Contrast volume: 100 ml; Contrast route: INTRAVENOUS (IV); COMPARISON: CT ABD/PEL W/IV CONTRAST ONLY 11/20/2019 1:01 AM FINDINGS: Lungs: There is atelectasis and pulmonary scarring in the lung bases. Liver: Normal. No mass. Gallbladder and bile ducts: Normal. No calcified stones. No ductal dilation. Pancreas: Normal. No ductal dilation. Spleen: Normal. No splenomegaly. Adrenals: Normal. No mass. Kidneys and ureters: Both kidneys are atrophic. There is persistent moderate hydronephrosis. No obstructing urinary tract calculi. Stomach and bowel: The stomach and much of the small bowel are dilated with large volume of intraluminal fluid. Associated mucosal enhancement in the small bowel. Small bowel loops measure up to 5.4 cm in diameter. Small bowel is dilated to a transition point in the mid abdomen open (image 102 of series 201). Small bowel distal to this point is decompressed. There is a large amount of fecal material in the colon. Appendix: No evidence of appendicitis. Intraperitoneal space: Unremarkable. No free air. No significant fluid collection. Vasculature: No pneumatosis or portal venous gas. Lymph nodes: Unremarkable. No enlarged lymph nodes. Bladder: Urinary bladder is mildly distended but otherwise unremarkable. Reproductive: Changes of prior TURP are noted. Bones/joints: There are advanced degenerative changes in the spine and pelvis. Changes of prior spinal fusion. Soft tissues: Unremarkable. IMPRESSION: 1. Persistent small bowel obstruction with transition point in the mid abdomen. No perforation or signs of ischemia. 2. Constipation. 3. Persistent bilateral hydronephrosis. Electronically signed by: Marco A Cho On 12/03/2019 04:56:14 AM
[2019-12-03] MEDS ORDERED: SENN1TAB96 PO (06:04)
[2019-12-03] MEDS ORDERED: ACETAMINOPHEN 500 MG TAB PO PRN (06:45)
--- NOTE | 2019-12-03 06:59 | HPEPDOC ---
[facility] Medical History & Physical Date of Admission Dec 03, 2019 Date of Service: Dec 03, 2019 Attending Physician: ONEL MORALES MD History and Physical CHIEF COMPLAINT: Abdominal pain HISTORY OF PRESENT ILLNESS: 78-year-old male with past medical history of Parkinson's disease, hypertension and recurrent small bowel obstructions, presents with abdominal pain. Patient was admitted recently for small bowel obstruction, requiring lysis of adhesions and enterotomy, discharge one week ago on oral antibiotics. He was feeling well up until yesterday when he started having abdominal pain again with associated nausea/vomiting. Last BM was 2 days ago, no other complaints. He denies any shortness of breath, chest pain, fever, or urinary complaints. PAST MEDICAL HISTORY: 1. Parkinson's disease. 2. Hypertension. 3. Small bowel obstruction. PAST SURGICAL HISTORY: 1. Lysis of adhesions. SOCIAL HISTORY: Previous smoker. Previous alcohol use Denies drug use FAMILY HISTORY: Positive for heart disease ALLERGIES: Please see below. HOME MEDICATIONS: Please see below. PHYSICAL EXAMINATION: VITAL SIGNS: Please see below. GENERAL: No distress HEENT: Normocephalic, atraumatic, moist mucous membranes NECK: Supple CARDIOVASCULAR EXAMINATION: S1, S2, no murmurs RESPIRATORY EXAMINATION: Scattered rhonchi, diminished in the bases, no wheezing ABDOMINAL EXAMINATION: Soft, mild tenderness to palpation, distended, hypoactive bowel sounds EXTREMITIES: Range of motion intact SKIN: No rash NEUROLOGICAL EXAMINATION: Alert and oriented 3, no focal deficits PSYCHIATRIC EXAMINATION: Calm and cooperative LABORATORY DATA: See below. IMAGING: CT abdomen and pelvis consistent with small bowel obstruction MICROBIOLOGY: Please see below. ASSESSMENT: 78-year-old male with past medical history of Parkinson's disease, hypertension and recurrent small bowel obstruction who recently underwent lysis of adhesions and enterotomy is being admitted for small bowel obstruction. PLAN: 1. Small bowel obstruction. Recent admission for same reason, requiring lysis of adhesions and enterotomy, was discharged one week ago with oral antibiotics, symptoms restarted yesterday, nothing by mouth, NG tube placement, IV fluids, Cipro/Flagyl, general surgery consulted (Dr. Medina). 2. Parkinson's disease. Continue home regimen 3. Hypertension. Continue home losartan and Norvasc. DVT prophylaxis: Lovenox GI prophylaxis: Not needed Vital Signs Vital Signs Date Time Temp Pulse Resp B/P (MAP) Pulse Ox O2 Delivery O2 Flow Rate FiO2 12/03/19 06:15 81 124/71 (88) 90 12/03/19 03:36 16 12/03/19 01:49 98.4 Room Air Laboratory Data Labs 24H Laboratory Tests 2 12/03/19 01:59: Immature Granulocyte % (Auto) 0.4, Neutrophils (%) (Auto) 82.3H, Lymphocytes (%) (Auto) 6.7L, Monocytes (%) (Auto) 9.7H, Eosinophils (%) (Auto) 0.7, Basophils (%) (Auto) 0.2, Neutrophils # (Auto) 11.0H, Lymphocytes # (Auto) 0.9L, Monocytes # (Auto) 1.3H, Eosinophils # (Auto) 0.1, Basophils # (Auto) 0.0, Nucleated Red Blood Cells % (auto) 0.0, Prothrombin Time 13.5, Prothromb Time International Ratio 1.06, Lactic Acid Level 0.8, Total Bilirubin 0.4, Direct Bilirubin 0.2, Aspartate Amino Transf (AST/SGOT) 39H, Alanine Aminotransferase (ALT/SGPT) 35, Alkaline Phosphatase 73, Total Creatine Kinase 87, Creatine Kinase MB 2.4, Creatine Kinase MB Relative Index 2.76, Troponin I < 0.02, Total Protein 7.3, Albumin 3.2, Albumin/Globulin Ratio 0.8, Lipase 39L 12/03/19 02:11: POC Glucose (Misc Panel) 147H, POC Sodium (Misc Panel) 139, POC Potassium (Misc Panel) 4.0, POC Chloride (Misc Panel) 98, POC Total CO2 (Misc Panel) 28.0H, POC Blood Urea Nitrogen (Misc Panel 12, POC Ionized Calcium (Misc Panel) 5.0, POC Creatinine (Misc Panel) 1.1, POC Hematocrit (Misc Panel) 39.0 CBC/BMP Laboratory Tests 12/03/19 01:59 Microbiology Microbiology 12/03/19 Blood Culture, Received Pending 12/03/19 Blood Culture, Received Pending Home Medications Scheduled Alfuzosin HCl (Alfuzosin HCl ER) 10 Mg Tab, 10 MG PO DAILY Amitriptyline HCl (Amitriptyline HCl) 50 Mg Tab, 50 MG PO QHS Amlodipine Besylate (Amlodipine Besylate) 5 Mg Tab, 5 MG PO BID Carbidopa/Levodopa (Carbidopa-Levodopa 25-100 Tab) 1 Each Tablet, 1 TAB PO BID Cefdinir (Cefdinir) 300 Mg Capsule, 1 CAP PO BID Finasteride (Finasteride) 5 Mg Tab, 5 MG PO DAILY Losartan Potassium (Losartan Potassium) 100 Mg Tab, 100 MG PO DAILY Metronidazole (Flagyl) 500 Mg Tablet, 500 MG PO Q8H Psyllium Husk (Psyllium Husk) 1 Pow Pow, 1 POW PO DAILY Rosuvastatin Calcium (Rosuvastatin Calcium) 20 Mg Tablet, 20 MG PO QHS Sennosides/Docusate Sodium (Senexon-S 50-8.6 mg Tablet) 1 Each Tablet, 2 EACH PO BID Tramadol HCl (Tramadol HCl) 50 Mg Tab, 50 MG PO TID [Sominex] , 1 TAB PO QHS Scheduled PRN Acetaminophen (Tylenol Extra Strength) 500 Mg Tablet, 1,000 MG PO TID PRN for PAIN / FEVER Polyethylene Glycol 3350 (Miralax) 1 Pow Pow, 17 GM PO DAILY PRN for CONSTIPATION Allergies Coded Allergies: No Known Allergies (Unverified , 09/29/18) A-FIB/CHADSVASC A-FIB History Current/History of A-Fib/PAF?: No ONEL MORALES MD Dec 03, 2019 06:59
[2019-12-03] MEDS: NS 1,000 ML IV SCH ×2 (07:23→21:33)
[2019-12-03] MEDS: metroNIDAZOLE 500 MG in IV 1 EA IV SCH ×3 (08:05→23:55)
[2019-12-03] MEDS ORDERED: traMADol 50 MG TAB PO SCH (09:00)
[2019-12-03] MEDS ORDERED: FINASTERIDE 5 MG TAB PO SCH (09:00)
[2019-12-03 09:16] VITALS: BP 130/74
[2019-12-03] MEDS: SINEMET 25-100 MG TAB PO SCH ×2 (09:57→21:34)
[2019-12-03] MEDS: ENOXAPARIN 40MG/0.4ML SYRINGE (J1650 PER 10MG) SC SCH (09:57)
[2019-12-03] MEDS: LOSARTAN 50MG TABLET PO SCH (09:58)
[2019-12-03] MEDS: amLODIPine 5 MG TAB PO SCH ×2 (09:58→21:34)
[2019-12-03] MEDS: CIPROFLOXACIN 400 MG in IV 1 EA IV SCH ×2 (09:59→21:33)
--- NOTE | 2019-12-03 13:12 | IPNPDOC ---
Text Note Date of Service The patient was seen on 12/03/19. NOTE Patient seen at bedside, has NG tube, comfortable. Has some diffuse abdominal pain Vitals stable Chest clear to auscultation CVS: regular heart sounds, s1, s2 normal has a soft systolic murmur Abdomen: Soft , mild tenderness in the LLQ and the centra abdomen, good bowel sounds , no guarding or rigidity Ex: No edema Recurrent SBO NPO, NG tube to suction, IVF cipro and flagyl hold losartan, statin, tramadol morphine prn. amlodipine for blood pressure. surgical consult pending. BPH on finasteride will hold till taking po Parkinsons: continue sinemet. VS,Fishbone, I+O VS, Fishbone, I+O Laboratory Tests 12/03/19 01:59 Vital Signs Date Time Temp Pulse Resp B/P (MAP) Pulse Ox O2 Delivery O2 Flow Rate FiO2 12/03/19 09:58 129/75 12/03/19 09:58 87 12/03/19 09:57 17 12/03/19 07:30 93 Room Air 12/03/19 07:05 98.4 LEONELA CONTRERAS MD Dec 03, 2019 13:12
[2019-12-03 14:43] VITALS: BP 128/72
--- NOTE | 2019-12-03 16:17 | ECGEPIP ---
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
[2019-12-03 20:23] VITALS: BP 136/70
[2019-12-03] MEDS ORDERED: ROSUVASTATIN 10 MG TAB (CRESTOR) PO SCH (21:00)
[2019-12-03] MEDS ORDERED: diphenhydrAMINE 50MG/ML VIAL (J1200) IV ONE (21:15)
[2019-12-03] MEDS: AMITRIPTYLINE 50 MG TAB PO SCH (21:34)
[2019-12-03] MEDS: MORPHINE 2 MG/ML 1ML VIAL (J2270) IV PRN (23:54)
[2019-12-04 06:20] VITALS: BP 116/73
[2019-12-04 06:32] LABS: HEMATOCRIT 37.5 % (42.0-52.0); HEMOGLOBIN 11.9 g/dl (13.5-17.5); MEAN CORPUSCULAR HEMOGLOBIN 32.2 pg (27.0-33.0); MEAN CORPUSCULAR HGB CONC 31.7 g/dl (32.0-36.5); MEAN CORPUSCULAR VOLUME 101.6 fl (80.0-96.0); PLATELET COUNT, AUTOMATED 346 10^3/uL (150-450); RED BLOOD COUNT 3.69 10^6/uL (4.30-6.10); WHITE BLOOD COUNT 11.4 10^3/uL (4.0-10.0)
[2019-12-04] MEDS: MORPHINE 2 MG/ML 1ML VIAL (J2270) IV PRN ×3 (06:48→19:25)
[2019-12-04 07:01] LABS: ALBUMIN 2.7 GM/DL (3.2-5.2); ALT/SGPT 18 U/L (12-78); BILIRUBIN,TOTAL 0.4 MG/DL (0.2-1.0); BLOOD UREA NITROGEN 11 MG/DL (7-18); CALCIUM LEVEL 8.9 MG/DL (8.8-10.2); CARBON DIOXIDE LEVEL 29 MEQ/L (21-32); CHLORIDE LEVEL 104 MEQ/L (98-107); CREATININE FOR GFR 1.05 MG/DL (0.70-1.30); GLOMERULAR FILTRATION RATE > 60.0 (>42); GLUCOSE, FASTING 89 MG/DL (70-100); POTASSIUM SERUM 4.1 MEQ/L (3.5-5.1); SODIUM LEVEL 139 MEQ/L (136-145); TOTAL PROTEIN 6.3 GM/DL (6.4-8.2)
[2019-12-04] MEDS: ENOXAPARIN 40MG/0.4ML SYRINGE (J1650 PER 10MG) SC SCH (08:46)
[2019-12-04] MEDS: amLODIPine 5 MG TAB PO SCH ×2 (08:46→21:16)
[2019-12-04] MEDS: metroNIDAZOLE 500 MG in IV 1 EA IV SCH ×2 (08:46→16:18)
[2019-12-04] MEDS: SINEMET 25-100 MG TAB PO SCH ×2 (08:46→21:16)
[2019-12-04] MEDS: CIPROFLOXACIN 400 MG in IV 1 EA IV SCH (10:05)
[2019-12-04] MEDS: NS 1,000 ML IV SCH (10:05)
--- NOTE | 2019-12-04 11:45 | IPNPDOC ---
Text Note Date of Service The patient was seen on 12/04/19. NOTE SUBJECTIVE: Mild pain in LLQ, otherwise asking for sips of water, using sponges OBJECTIVE: VITAL SIGNS: Please see below. HDS, afebrile GENERAL: No distress HEENT: Normocephalic, atraumatic, moist mucous membranes NECK: Supple CARDIOVASCULAR EXAMINATION: S1, S2, no murmurs RESPIRATORY EXAMINATION: Scattered rhonchi, diminished in the bases, no wheezing ABDOMINAL EXAMINATION: Soft, diffuse mild tenderness to palpation, distended, hypoactive bowel sounds, NGT still in place to low intermittent suction EXTREMITIES: WWE, no LE edema SKIN: No rash NEUROLOGICAL EXAMINATION: Alert and oriented 3, no focal deficits PSYCHIATRIC EXAMINATION: Calm and cooperative LABORATORY DATA: See below. Reviewed WBC 11.4 Hgb 11.9 Cr 1.05 IMAGING: CT abdomen and pelvis consistent with small bowel obstruction MICROBIOLOGY: Please see below. ASSESSMENT: 78-year-old male with past medical history of Parkinson's disease, hypertension and recurrent small bowel obstruction who recently underwent lysis of adhesions and enterotomy now readmitted for small bowel obstruction. PLAN: 1. Small bowel obstruction. Recent admission for same reason, requiring lysis of adhesions and enterotomy, was discharged one week prior to readmission with oral antibiotics, -nothing by mouth, NG tube, IV fluids, Cipro/Flagyl, general surgery consulted (Dr. Medina). 2. Parkinson's disease. Continue home regimen 3. Hypertension. Continue home losartan and Norvasc. DVT prophylaxis: Lovenox GI prophylaxis: Not needed VS,Fishbone, I+O VS, Fishbone, I+O Laboratory Tests 12/04/19 05:57 Vital Signs Date Time Temp Pulse Resp B/P (MAP) Pulse Ox O2 Delivery O2 Flow Rate FiO2 12/04/19 08:46 94 116/73 12/04/19 06:58 16 12/04/19 06:20 98.9 94 Room Air I&O- Last 24 Hours up to 6 AM 12/04/19 06:00 Intake Total 1055 ml Output Total 2500 ml Balance -1445 ml PETERSON CRUZ MD Dec 04, 2019 09:02
[2019-12-04 14:00] VITALS: BP 114/72
--- NOTE | 2019-12-04 21:15 | IPN ---
DATE: 12/04/2019 HISTORY: The patient is a 78-year-old man who had undergone a laparoscopic lysis of adhesions performed with the da Mamadou robotic system on 11/23/2019. He was apparently found to have fairly extensive adhesions, but resolved his obstruction postoperatively and was discharged home on 11/27/2019. He returned to the emergency department in the heddler tier of 12/03/2019 by ambulance complaining of abdominal pain with distension. He underwent repeat CT scan and was found to have evidence for a repeat small bowel obstruction. The radiologist reported significant proximal small bowel distension with fluid, and a transition point in the mid abdomen. The patient was admitted by the hospitalist. I was asked to consult and saw him yesterday. He has a nasogastric tube in place, which is functioning moderately well. Vital signs: Show that he has been afebrile since yesterday. His pulse is in the 80s to mid 90s, and his blood pressure is good. His intake and output show that yesterday he had one liter in with 2350 out, 1750 of which was gastric drainage. Today he had 550 recorded out from his nasogastric (NG) tube so far. PHYSICAL EXAMINATION: The patient is awake and alert. He reports some discomfort. He is having some occasional cramping. Heart exam shows a regular rhythm. The abdomen is softly distended. He has some loud bowel sounds in the upper abdomen. There is some mild tympany to percussion in the upper abdomen. Palpation reveals some mild fairly diffuse abdominal tenderness. His NG tube is draining some light greenish fluid with some little flecks of material in it but the tube is not sumping well. Laboratory studies today show a white count of 11, hemoglobin 12, hematocrit 38 and a platelet count of 346,000. His chemistry profile shows a sodium of 139, potassium 4.1, chloride 104, CO2 of 29, BUN of 11, creatinine 1, and a glucose of 89. Liver function tests are normal with a total protein of 6.3 and an albumin of 2.7. IMPRESSION: The patient has evidence for a persistent small bowel obstruction. He reports no bowel movement or flatus in the last 24 hours. His abdomen remains distended and mildly tender. His NG tube is not functioning optimally. PLAN: I will order a KUB to see if his NG tube depth needs to be changed. I will also stop the antibiotics which were apparently restarted on admission just because he had gone home on some antibiotics. There has been no sign of infection, and I think it is reasonable to stop those. I do think it is likely that the patient will require repeat surgery during this hospital stay. He should remain nothing by mouth with the NG in place. We may need to consider intravenous nutrition if his period of nothing by mouth status is going to continue much longer. MTDD
[2019-12-04] MEDS: AMITRIPTYLINE 50 MG TAB PO SCH (21:16)
[2019-12-04 22:00] VITALS: BP 146/84
--- NOTE | 2019-12-05 03:19 | REP ---
REASON FOR EXAM: Followup small bowel obstruction. KUB shows a nasogastric tube remaining in the stomach but retracted slightly when compared to the prior exam. The proximal port is just distal to the GE junction. The degree of small bowel dilatation has increased compared to the prior exam. There is no free air. IMPRESSION: Small bowel obstruction. Electronically Signed by Rodney Ferrara DO 12/05/2019 08:39 A
[2019-12-05 06:00] VITALS: BP 152/92
[2019-12-05] MEDS: NS 1,000 ML IV SCH ×3 (06:15→21:15)
[2019-12-05 06:53] LABS: BLOOD UREA NITROGEN 14 MG/DL (7-18); CALCIUM LEVEL 8.9 MG/DL (8.8-10.2); CARBON DIOXIDE LEVEL 26 MEQ/L (21-32); CHLORIDE LEVEL 104 MEQ/L (98-107); CREATININE FOR GFR 1.03 MG/DL (0.70-1.30); GLOMERULAR FILTRATION RATE > 60.0 (>42); GLUCOSE, FASTING 84 MG/DL (70-100); POTASSIUM SERUM 4.4 MEQ/L (3.5-5.1); SODIUM LEVEL 142 MEQ/L (136-145)
[2019-12-05 08:14] LABS: HEMATOCRIT 38.6 % (42.0-52.0); MEAN CORPUSCULAR HEMOGLOBIN 31.6 pg (27.0-33.0); MEAN CORPUSCULAR HGB CONC 31.1 g/dl (32.0-36.5); MEAN CORPUSCULAR VOLUME 101.6 fl (80.0-96.0); PLATELET COUNT, AUTOMATED 369 10^3/uL (150-450); WHITE BLOOD COUNT 10.4 10^3/uL (4.0-10.0)
[2019-12-05] MEDS ORDERED: ONDANSETRON 4MG/2ML VIAL IV PRN (08:15)
[2019-12-05] MEDS: SINEMET 25-100 MG TAB PO SCH ×2 (08:20→21:08)
[2019-12-05] MEDS: ENOXAPARIN 40MG/0.4ML SYRINGE (J1650 PER 10MG) SC SCH (08:21)
[2019-12-05] MEDS: amLODIPine 5 MG TAB PO SCH ×2 (08:21→20:45)
--- NOTE | 2019-12-05 09:55 | IPNPDOC ---
Text Note Date of Service The patient was seen on 12/05/19. NOTE SUBJECTIVE: -NGT still in place, very nauseous this morning OBJECTIVE: VITAL SIGNS: Please see below. HDS, afebrile GENERAL: No distress HEENT: Normocephalic, atraumatic, moist mucous membranes NECK: Supple CARDIOVASCULAR EXAMINATION: S1, S2, no murmurs RESPIRATORY EXAMINATION: Scattered rhonchi, diminished in the bases, no wheezing ABDOMINAL EXAMINATION: Soft, diffuse mild tenderness to palpation, distended, hypoactive bowel sounds, NGT still in place to low intermittent suction EXTREMITIES: WWE, no LE edema SKIN: No rash NEUROLOGICAL EXAMINATION: Alert and oriented 3, no focal deficits PSYCHIATRIC EXAMINATION: Calm and cooperative LABORATORY DATA: See below. Reviewed Cr 1.03. CBC pending. IMAGING: Admission CT abdomen and pelvis consistent with small bowel obstruction 12/03 KUB with persistent SBO MICROBIOLOGY: Please see below. ASSESSMENT: 78-year-old M with past medical history of Parkinson's disease, hypertension and recurrent small bowel obstruction who recently underwent lysis of adhesions and enterotomy now readmitted for small bowel obstruction. PLAN: 1. Small bowel obstruction. Recent admission for same reason, requiring lysis of adhesions and enterotomy, was discharged one week prior to readmission -nothing by mouth, NG tube, IV fluids, general surgery consulted (Dr. Medina). Tentative plan is for surgery tomorrow 2. Parkinson's disease. Continue home regimen 3. Hypertension. Continue home losartan and Norvasc. DVT prophylaxis: Lovenox VS,Fishbone, I+O VS, Fishbone, I+O Laboratory Tests 12/05/19 06:10 Vital Signs Date Time Temp Pulse Resp B/P (MAP) Pulse Ox O2 Delivery O2 Flow Rate FiO2 12/05/19 06:00 98.6 104 18 152/92 (112) 95 Room Air I&O- Last 24 Hours up to 6 AM 12/05/19 06:00 Intake Total 0 ml Output Total 2000 ml Balance -2000 ml PETERSON CRUZ MD Dec 05, 2019 07:55
[2019-12-05] MEDS ORDERED: METOCLOPRAMIDE INJ 10MG/2ML VIAL (J2765 PER 1) IV PRN (10:00)
[2019-12-05] MEDS: LOSARTAN 50MG TABLET PO SCH (10:03)
[2019-12-05 14:00] VITALS: BP 148/88
--- NOTE | 2019-12-05 17:17 | IPN ---
DATE: 12/05/2019 HISTORY: Patient was admitted with a recurrent small bowel obstruction on 12/03/2019. He had undergone a robotic-assisted laparoscopic lysis of adhesions by Dr. Courtney back on about 11/23/2019. He reports no significant improvement since yesterday. He continues to have a distended abdomen with some crampy pains on and off. Vital signs show that he has been afebrile over the past 24 hours. His pulse is generally in the 90s to low 100s. His blood pressure is good and his room air oxygen saturation is fine. Intake and output show that his intake was not accurately recorded yesterday. He had 800 of urine output with 550 of nasogastric (NG) output. PHYSICAL EXAMINATION: The patient is alert and oriented. His NG appears to be draining a small amount of lightly greenish fluid. Heart exam shows a regular rhythm. Abdomen is distended and fairly full. He has some bowel sounds present. There is some tympany to percussion in the mid to upper abdomen. The abdomen is soft and without any point tenderness, but he has some mild generalized tenderness. Laboratory studies show a white count of 10, hemoglobin 12, hematocrit 39, and a platelet count of 369,000. His chemistry profile shows normal electrolytes, BUN, creatinine, and glucose. IMPRESSION: The patient has shown no improvement since his admission 2 days ago. I have recommended that we plan to proceed with a laparoscopy and lysis of adhesions, possible bowel resection on 12/06/2019. He had an opportunity to ask questions and desires to proceed. He will be scheduled for surgery as an add-on tomorrow. SERENA
[2019-12-05] MEDS: AMITRIPTYLINE 50 MG TAB PO SCH (21:08)
[2019-12-05 22:00] VITALS: BP 97/73
[2019-12-06 06:00] VITALS: BP 110/74
[2019-12-06] MEDS ORDERED: cefoTEtan DISODIUM 2 GM in D5W MINI-BAG PLUS 50 ML IV ONE (06:00)
[2019-12-06 07:03] LABS: HEMATOCRIT 35.4 % (42.0-52.0); HEMOGLOBIN 11.2 g/dl (13.5-17.5); MEAN CORPUSCULAR HEMOGLOBIN 31.6 pg (27.0-33.0); MEAN CORPUSCULAR HGB CONC 31.6 g/dl (32.0-36.5); PLATELET COUNT, AUTOMATED 375 10^3/uL (150-450); RED BLOOD COUNT 3.54 10^6/uL (4.30-6.10); WHITE BLOOD COUNT 12.4 10^3/uL (4.0-10.0)
[2019-12-06 07:27] LABS: BLOOD UREA NITROGEN 18 MG/DL (7-18); CALCIUM LEVEL 8.6 MG/DL (8.8-10.2); CARBON DIOXIDE LEVEL 30 MEQ/L (21-32); CHLORIDE LEVEL 106 MEQ/L (98-107); GLOMERULAR FILTRATION RATE > 60.0 (>42); GLUCOSE, FASTING 99 MG/DL (70-100); SODIUM LEVEL 145 MEQ/L (136-145)
[2019-12-06] MEDS: LOSARTAN 50MG TABLET PO SCH (08:57)
[2019-12-06] MEDS: amLODIPine 5 MG TAB PO SCH ×2 (08:57→21:00)
[2019-12-06] MEDS: SINEMET 25-100 MG TAB PO SCH ×2 (08:57→21:00)
--- NOTE | 2019-12-06 09:05 | REP ---
KUB: TWO VIEWS. HISTORY: Small bowel obstruction. COMPARISON STUDY: December 04, 2019 FINDINGS: A nasogastric tube is seen looped in the gastric fundus. There is mild gaseous distension of the stomach. There is moderate gaseous distension of multiple small bowel loops, similar to yesterday's radiograph and consistent with small bowel obstruction. There is a paucity of distal bowel gas. Vascular calcifications noted and fusion hardware is noted throughout the lumbosacral spine and lower thoracic spine. IMPRESSION: Persistent moderate small bowel distension consistent with small bowel obstruction. Electronically Signed by Del Martinez MD 12/06/2019 10:33 A
[2019-12-06] MEDS: NS 1,000 ML IV SCH ×2 (09:45→22:15)
--- NOTE | 2019-12-06 11:55 | IPNPDOC ---
Text Note Date of Service The patient was seen on 12/06/19. NOTE INTERIM EVENTS: -Pending surgery today for lysis of adhesions and possible some bowel resection with Dr. Medina -Received cefotetan pre-op abx OBJECTIVE: VITAL SIGNS: Please see below. HDS, afebrile GENERAL: No distress HEENT: Normocephalic, atraumatic, moist mucous membranes NECK: Supple CARDIOVASCULAR EXAMINATION: S1, S2, no murmurs RESPIRATORY EXAMINATION: Scattered rhonchi, diminished in the bases, no wheezing ABDOMINAL EXAMINATION: Soft, diffuse mild tenderness to palpation, distended, hypoactive bowel sounds, NGT still in place to low intermittent suction EXTREMITIES: WWE, no LE edema SKIN: No rash NEUROLOGICAL EXAMINATION: Alert and oriented 3, no focal deficits PSYCHIATRIC EXAMINATION: Calm and cooperative LABORATORY DATA: See below. Reviewed Cr 1.1, WBC 12.4 IMAGING: Admission CT abdomen and pelvis consistent with small bowel obstruction 12/03 KUB with persistent SBO MICROBIOLOGY: Please see below. ASSESSMENT: 78-year-old M with past medical history of Parkinson's disease, hypertension and recurrent small bowel obstruction who recently underwent lysis of adhesions and enterotomy now readmitted for small bowel obstruction. PLAN: 1. Small bowel obstruction. Recent admission for same reason, requiring lysis of adhesions and enterotomy, was discharged one week prior to readmission -nothing by mouth, NG tube, IV fluids, general surgery consulted (Dr. Medina). Tentative plan is for surgery today as an add-on 2. Parkinson's disease. Continue home regimen 3. Hypertension. Continue home losartan and Norvasc. DVT prophylaxis: Lovenox VS,Fishbone, I+O VS, Fishbone, I+O Laboratory Tests 12/06/19 06:46 Vital Signs Date Time Temp Pulse Resp B/P (MAP) Pulse Ox O2 Delivery O2 Flow Rate FiO2 12/06/19 06:00 98.0 80 18 110/74 (86) 95 Room Air I&O- Last 24 Hours up to 6 AM 12/06/19 06:00 Intake Total 0 ml Output Total 2270 ml Balance -2270 ml PETERSON CRUZ MD Dec 06, 2019 08:13
[2019-12-06 14:00] VITALS: BP 105/66
--- NOTE | 2019-12-06 16:49 | IPN ---
DATE: 12/06/2019 HISTORY: The patient is being monitored for a recurrent small bowel obstruction. He had undergone a lysis of adhesions approximately 2 weeks ago, but returned 3 days ago with a recurrence. He has shown no improvement since yesterday. He has had no passage of flatus. He had some vomiting around his nasogastric (NG) tube yesterday afternoon and the tube was advanced a little further. It has been draining well since. He remains distended with some cramping pains at times. Vital signs show that he has been afebrile over the past 24 hours. Pulse in the 80s to low 100s, and his blood pressure is good. Intake and output show that yesterday he had 1870 recorded out and interestingly nothing recorded in though he is on an IV continuously. Yesterday, he had 1000 of urine output and 850 of gastric drainage. This morning he has 1200 of NG output recorded. The patient is alert and oriented. His abdomen is mildly distended. He does have a few bowel sounds. The abdomen is soft but full. This is somewhat firmer in the left lower quadrant and he is a little more tender in this area though he has a little mild diffuse tenderness to palpation. Laboratory studies today show a white count of 12, hemoglobin 11, hematocrit 35, and a platelet count of 375,000. His chemistry profile shows normal electrolytes, BUN, creatinine, and a glucose of 99. A KUB this morning shows persistent quite dilated air-filled loops of small bowel and I see no definite air in the colon. IMPRESSION: Patient has a persistent recurrent small bowel obstruction. I counseled him that I believe it is appropriate to proceed with surgical intervention. This is scheduled as an add-on on later today. I will approach this laparoscopically using the [facility] surgical system. It may be that his bowel will be so dilated that we cannot accomplish his surgery laparoscopically and an open procedure would be necessary. I counseled him regarding this possibility. He desires to proceed and I will plan on the surgery this afternoon. SERENA
[2019-12-06] MEDS ORDERED: cefoTEtan INJ 2GM VIAL (S0074 PER 500MG) As Ordered ONE (17:13)
[2019-12-06] MEDS ORDERED: dexameTHASONE 4 MG/ML 1ML VIAL (J1100 PER 1MG) As Ordered ONE (17:27)
[2019-12-06] MEDS ORDERED: propofoL 200 MG/20 ML VIAL As Ordered ONE ×3 (17:27→21:54)
[2019-12-06] MEDS ORDERED: SUGAMMADEX SODIUM 500 MG/5 ML VIAL (BRIDION) As Ordered ONE ×2 (17:27→21:42)
[2019-12-06] MEDS ORDERED: ONDANSETRON 4MG/2ML VIAL As Ordered ONE (17:27)
[2019-12-06] MEDS ORDERED: METOCLOPRAMIDE INJ 10MG/2ML VIAL (J2765 PER 1) As Ordered ONE (17:27)
[2019-12-06] MEDS ORDERED: MIDAZOLAM INJ 2MG/2ML VIAL (J2250 PER 1MG) As Ordered ONE (17:27)
[2019-12-06] MEDS ORDERED: LIDOCAINE 2% 100MG/5ML SDV (FOR ANES.) As Ordered ONE (17:27)
[2019-12-06] MEDS ORDERED: ROCURONIUM BROMIDE 50 MG/5 ML VIAL As Ordered ONE ×3 (17:27→22:36)
[2019-12-06] MEDS ORDERED: fentaNYL 250 MCG/5 ML INJECTION (J3010) As Ordered ONE (17:27)
[2019-12-06] MEDS ORDERED: BUPIVACAINE HCL 0.25% 30ML VIAL As Ordered ONE (17:58)
[2019-12-06] MEDS ORDERED: VASOPRESSIN INJ 20 UNITS/ML VIAL As Ordered ONE (19:04)
[2019-12-06] MEDS ORDERED: GLYCOPYRROLATE INJ 0.2 MG/ML 2 ML VIAL As Ordered ONE (19:08)
[2019-12-06] MEDS ORDERED: HYDROmorphone HCL 2 MG/ML 1ML VIAL (J1170) As Ordered ONE (19:42)
[2019-12-06] MEDS: AMITRIPTYLINE 50 MG TAB PO SCH (21:00)
[2019-12-06] MEDS ORDERED: PHENYLephrine HCL 500 MCG/5 ML (100MCG/ML) SYRINGE (J2370) As Ordered ONE (22:03)
[2019-12-06] MEDS ORDERED: ePHEDrine SULFATE 25 MG/5 ML(5MG/ML) SYRINGE As Ordered ONE (22:03)
[2019-12-06] MEDS ORDERED: ACETAMINOPHEN 1000MG 100ML IV BTL (OFIRMEV) (J0131 PER 10MG) As Ordered ONE (22:08)
[2019-12-07] VITALS (10 sets, daily range): BP systolic 114–133; BP diastolic 68–82
[2019-12-07] MEDS ORDERED: fentaNYL 100 MCG/2 ML INJECTION (J3010) As Ordered ONE (00:25)
[2019-12-07] MEDS ORDERED: LR 1,000 ML IV SCH (00:45)
[2019-12-07] MEDS ORDERED: METOCLOPRAMIDE INJ 10MG/2ML VIAL (J2765 PER 1) IV PRN (00:45)
[2019-12-07] MEDS ORDERED: fentaNYL 100 MCG/2 ML INJECTION (J3010) IV PRN (00:45)
[2019-12-07] MEDS ORDERED: ONDANSETRON 4MG/2ML VIAL IV PRN (00:45)
[2019-12-07] MEDS ORDERED: MORPHINE 2 MG/ML 1ML VIAL (J2270) IV PRN (01:00)
[2019-12-07] MEDS: KETOROLAC 30 MG/ML 1ML VIAL IV SCH ×4 (02:02→20:00)
[2019-12-07] MEDS: PIPERACILLIN/TAZOBACTAM SOD 3.375 GM in D5W MINI-BAG PLUS 50 ML IV SCH ×4 (02:02→20:07)
[2019-12-07 06:34] LABS: BASO % 0.1 % (0.0-1.0); HEMATOCRIT 33.9 % (42.0-52.0); HEMOGLOBIN 10.8 g/dl (13.5-17.5); LYMPH # 0.4 10^3/uL (1.5-5.0); LYMPH % 2.1 % (24.0-44.0); MEAN CORPUSCULAR HEMOGLOBIN 32.1 pg (27.0-33.0); MEAN CORPUSCULAR HGB CONC 31.9 g/dl (32.0-36.5); MEAN CORPUSCULAR VOLUME 100.9 fl (80.0-96.0); MONO % 5.2 % (0.0-5.0); NEUTROPHILS # 18.1 10^3/uL (1.5-8.5); PLATELET COUNT, AUTOMATED 302 10^3/uL (150-450); RED BLOOD COUNT 3.36 10^6/uL (4.30-6.10); WHITE BLOOD COUNT 19.6 10^3/uL (4.0-10.0)
[2019-12-07 06:35] LABS: HEMATOCRIT 34.2 % (42.0-52.0); HEMOGLOBIN 10.6 g/dl (13.5-17.5); MEAN CORPUSCULAR HEMOGLOBIN 31.3 pg (27.0-33.0); MEAN CORPUSCULAR VOLUME 100.9 fl (80.0-96.0); PLATELET COUNT, AUTOMATED 299 10^3/uL (150-450); RED BLOOD COUNT 3.39 10^6/uL (4.30-6.10); WHITE BLOOD COUNT 19.9 10^3/uL (4.0-10.0)
[2019-12-07 06:52] LABS: CALCIUM LEVEL 8.2 MG/DL (8.8-10.2); CREATININE FOR GFR 1.36 MG/DL (0.70-1.30); GLOMERULAR FILTRATION RATE 54.1 (>42); POTASSIUM SERUM 4.1 MEQ/L (3.5-5.1)
[2019-12-07] MEDS: LOSARTAN 50MG TABLET PO SCH (08:15)
[2019-12-07] MEDS: SINEMET 25-100 MG TAB PO SCH ×2 (08:16→20:08)
[2019-12-07] MEDS: amLODIPine 5 MG TAB PO SCH ×2 (08:16→20:08)
--- NOTE | 2019-12-07 10:25 | REP ---
KUB: SINGLE VIEW. HISTORY: Check bowel gas pattern. Comparison film, December 06, 2019 at 8:21 a.m. FINDINGS: NG tube enters the left upper quadrant. There are laparotomy skin bonilla. Vascular calcifications noted. There are three loops of air-filled mildly dilated bowel in the left mid abdomen. There is some mural and mucosal fold thickening in these loops, but the degree of distension is much improved from yesterday's radiographs. There is an anastomotic suture in the right mid abdomen. IMPRESSION: Postop changes. There are a few persistent loops of mildly dilated bowel to the left of midline showing mild mural thickening. Bowel gas pattern is improved. Electronically Signed by Del Martinez MD 12/07/2019 11:02 A
[2019-12-07] MEDS: NS 1,000 ML IV SCH ×2 (10:45→17:47)
--- NOTE | 2019-12-07 14:21 | IPNPDOC ---
Text Note Date of Service The patient was seen on 12/07/19. NOTE INTERIM EVENTS: -Had surgery yesterday during which Dr. Medina identified an intraloop abscess that was drained and he had lysis of adhesions and now placed on zosyn -mild diffuse abdominal pain this morning, otherwise no other complaints OBJECTIVE: VITAL SIGNS: Please see below. HDS, afebrile GENERAL: No distress HEENT: Normocephalic, atraumatic, moist mucous membranes NECK: Supple CARDIOVASCULAR EXAMINATION: S1, S2, no murmurs RESPIRATORY EXAMINATION: Scattered rhonchi, diminished in the bases, no wheezing ABDOMINAL EXAMINATION: Soft, diffuse mild tenderness to palpation, distended, hypoactive bowel sounds, NGT still in place EXTREMITIES: WWE, no LE edema SKIN: No rash NEUROLOGICAL EXAMINATION: Alert and oriented 3, no focal deficits PSYCHIATRIC EXAMINATION: Calm and cooperative LABORATORY DATA: See below. Reviewed Cr 1.36, WBC 19.6 IMAGING: Admission CT abdomen and pelvis consistent with small bowel obstruction 12/03 KUB with persistent SBO 12/06 KUB: Postop changes. There are a few persistent loops of mildly dilated bowel to the left of midline showing mild mural thickening. Bowel gas pattern is improved. MICROBIOLOGY: Please see below. ASSESSMENT: 78-year-old M with past medical history of Parkinson's disease, hypertension and recurrent small bowel obstruction who recently underwent lysis of adhesions and enterotomy now readmitted for small bowel obstruction. PLAN: 1. Small bowel obstruction. Recent admission for same reason, requiring lysis of adhesions and enterotomy, was discharged one week prior to readmission now s/p intraloop abscess drainage and lysis of adhesions on 12/05 -nothing by mouth, NG tube, IV fluids, general surgery onboard (Dr. Medina). -continue zosyn, day 2 since abscess drainage 2. Parkinson's disease. Continue home regimen 3. Hypertension. Continue home losartan and Norvasc. DVT prophylaxis: Lovenox VS,Fishbone, I+O VS, Fishbone, I+O Laboratory Tests 12/07/19 06:16 Vital Signs Date Time Temp Pulse Resp B/P (MAP) Pulse Ox O2 Delivery O2 Flow Rate FiO2 12/07/19 10:00 98.0 81 18 123/71 (88) 91 Nasal Cannula 2.0 I&O- Last 24 Hours up to 6 AM 12/07/19 06:00 Intake Total 3980 ml Output Total 3600 ml Balance 380 ml PETERSON CRUZ MD Dec 07, 2019 14:21
[2019-12-07] MEDS: AMITRIPTYLINE 50 MG TAB PO SCH (20:08)
[2019-12-08 02:00] VITALS: BP 145/79
[2019-12-08] MEDS: KETOROLAC 30 MG/ML 1ML VIAL IV SCH ×4 (02:00→21:33)
[2019-12-08] MEDS: PIPERACILLIN/TAZOBACTAM SOD 3.375 GM in D5W MINI-BAG PLUS 50 ML IV SCH ×4 (02:16→21:34)
[2019-12-08 06:00] VITALS: BP 146/80
[2019-12-08 07:07] LABS: HEMATOCRIT 34.6 % (42.0-52.0); HEMOGLOBIN 10.6 g/dl (13.5-17.5); MEAN CORPUSCULAR HEMOGLOBIN 31.7 pg (27.0-33.0); MEAN CORPUSCULAR HGB CONC 30.6 g/dl (32.0-36.5); MEAN CORPUSCULAR VOLUME 103.6 fl (80.0-96.0); PLATELET COUNT, AUTOMATED 286 10^3/uL (150-450); RED BLOOD COUNT 3.34 10^6/uL (4.30-6.10); WHITE BLOOD COUNT 10.9 10^3/uL (4.0-10.0)
[2019-12-08 07:29] LABS: BLOOD UREA NITROGEN 20 MG/DL (7-18); CALCIUM LEVEL 8.2 MG/DL (8.8-10.2); CARBON DIOXIDE LEVEL 36 MEQ/L (21-32); CHLORIDE LEVEL 108 MEQ/L (98-107); GLOMERULAR FILTRATION RATE > 60.0 (>42); GLUCOSE, FASTING 87 MG/DL (70-100); POTASSIUM SERUM 3.3 MEQ/L (3.5-5.1); SODIUM LEVEL 151 MEQ/L (136-145)
[2019-12-08] MEDS: SINEMET 25-100 MG TAB PO SCH ×2 (09:08→21:33)
[2019-12-08] MEDS: amLODIPine 5 MG TAB PO SCH ×2 (09:08→21:33)
[2019-12-08] MEDS: LOSARTAN 50MG TABLET PO SCH (09:08)
--- NOTE | 2019-12-08 11:34 | IPNPDOC ---
Text Note Date of Service The patient was seen on 12/08/19. NOTE INTERIM EVENTS: -NGT still in place, abdominal pain is mild OBJECTIVE: VITAL SIGNS: Please see below. HDS, afebrile GENERAL: No distress HEENT: Normocephalic, atraumatic, moist mucous membranes NECK: Supple CARDIOVASCULAR EXAMINATION: S1, S2, no murmurs RESPIRATORY EXAMINATION: Scattered rhonchi, diminished in the bases, no wheezing ABDOMINAL EXAMINATION: Soft, diffuse mild tenderness to palpation, distended, hypoactive bowel sounds, NGT still in place EXTREMITIES: WWE, no LE edema SKIN: No rash NEUROLOGICAL EXAMINATION: Alert and oriented 3, no focal deficits PSYCHIATRIC EXAMINATION: Calm and cooperative LABORATORY DATA: See below. Reviewed WBC downtrended to 10.9. BMP pending IMAGING: Admission CT abdomen and pelvis consistent with small bowel obstruction 12/03 KUB with persistent SBO 12/06 KUB: Postop changes. There are a few persistent loops of mildly dilated bowel to the left of midline showing mild mural thickening. Bowel gas pattern is improved. MICROBIOLOGY: Please see below. ASSESSMENT: 78-year-old M with past medical history of Parkinson's disease, hypertension and recurrent small bowel obstruction who recently underwent lysis of adhesions and enterotomy now readmitted for small bowel obstruction s/p laparotomy with partial small bowel resection, lysis of adhesions and drainage of intraloop abscess on 12/[address] Medina. PLAN: 1. Small bowel obstruction. Recent admission for same reason, requiring lysis of adhesions and enterotomy, was discharged one week prior to readmission now s/p laparotomy with partial small bowel resection, lysis of adhesions and drainage of intraloop abscess on 12/[address] Medina. -nothing by mouth, NG tube, IV fluids, general surgery onboard (Dr. Medina) with Dr. Madrid. -continue zosyn, day 3 since abscess drainage -Will discuss starting TPN with surgery given prolonged NPO status 2. Parkinson's disease. Continue home regimen 3. Hypertension. Continue home losartan and Norvasc. DVT prophylaxis: Lovenox VS,Fishbone, I+O VS, Fishbone, I+O Laboratory Tests 12/08/19 06:27 Vital Signs Date Time Temp Pulse Resp B/P (MAP) Pulse Ox O2 Delivery O2 Flow Rate FiO2 12/08/19 06:00 97.5 80 18 146/80 (102) 97 Room Air 12/08/19 05:15 1.0 I&O- Last 24 Hours up to 6 AM 12/08/19 05:59 Intake Total 430 ml Output Total 4120 ml Balance -3690 ml PETERSON CRUZ MD Dec 08, 2019 07:31
[2019-12-08] MEDS: NS 1,000 ML IV SCH (11:45)
--- NOTE | 2019-12-08 13:01 | IPN ---
DATE: 12/08/2019 The patient is status post lysis of adhesions for small bowel obstruction with an abscess in the pelvis that was drained. The patient overall seems to be making some better progress overnight. His nasogastric (NG) tube is dropped down nicely today, and he has been having adequate urine output. He has been afebrile with once again his NG tube decreased. He has been having adequate pain control with Toradol, has not asked for any additional morphine. His abdomen is mildly distended, tender around the incision without significant guarding, rebound or peritoneal signs. Extremities are warm, well-perfused. IMPRESSION AND PLAN: The patient is status post lysis of adhesions with drainage of intra-abdominal abscess. The patient is making some slow progress. He looks okay today, but relatively frail individual. I do feel that we need to go slowly with him and will continue the NG tube, nothing by mouth, IV fluids and see how his progress was over the next 24-48 hours. If he does not have significant improvement over the next 24-48 hours, I would recommend that we start total parenteral nutrition (TPN) or peripheral parental nutrition (PPN) for him. Edited 12/08/2019 [facility]
--- NOTE | 2019-12-08 13:58 | IPN ---
DATE: 12/07/2019 HISTORY: The patient is now approximately 12 to 18 hours postop from his laparoscopy with laparotomy and bowel resection for an interloop abscess with small-bowel obstruction. He is complaining bitterly about his Amos catheter, though he does not appear to be in significant discomfort at this point. His urine output has been adequate. He would like a few ice chips to moisten his mouth with. Vital signs show that he has been afebrile since his surgery. His pulse is in the 70s and 80s. Blood pressure is good. PHYSICAL EXAMINATION: The patient is alert and appears oriented. The nasogastric (NG) tube has a small amount of light greenish fluid with flecks of material draining. His heart exam shows a regular rhythm. The abdomen is perhaps mildly distended. His dressings are clean and dry. The abdomen is fairly quiet on auscultation. Labs this morning showed a white count of 20, hemoglobin of 11, hematocrit of 34 and platelet count of 302,000. Chemistry profile showed a sodium of 146, potassium 4.1, chloride 109, CO2 of 30, BUN of 19, creatinine 1.4 and a glucose of 132. IMPRESSION: The patient remains stable now approximately 12-18 hours postop from his bowel resection for his abscess and bowel obstruction. PLAN: I will remove his Amos catheter but advised him we wish to measure his urine output. I will allow him to take a few sips of water or ice chips as his NG tube remains in place. We will need to await return of bowel function before taking the NG out and advancing his diet. I will continue him on the Zosyn for his abscess. We did obtain Culturettes from this area during the surgery. The gram stain showed no organisms and culture results are of course pending. [facility]
[2019-12-08 14:00] VITALS: BP 148/80
[2019-12-08 18:00] VITALS: BP 154/91
[2019-12-08] MEDS: AMITRIPTYLINE 50 MG TAB PO SCH (21:33)
[2019-12-08 22:00] VITALS: BP 157/81
[2019-12-09] MEDS: NS 1,000 ML IV SCH (00:23)
[2019-12-09 02:00] VITALS: BP 142/79
[2019-12-09] MEDS: KETOROLAC 30 MG/ML 1ML VIAL IV SCH ×4 (02:00→20:15)
[2019-12-09] MEDS: PIPERACILLIN/TAZOBACTAM SOD 3.375 GM in D5W MINI-BAG PLUS 50 ML IV SCH ×4 (02:58→20:15)
[2019-12-09 06:00] VITALS: BP 149/81
[2019-12-09 07:26] LABS: HEMATOCRIT 35.3 % (42.0-52.0); HEMOGLOBIN 10.6 g/dl (13.5-17.5); MEAN CORPUSCULAR HEMOGLOBIN 31.2 pg (27.0-33.0); MEAN CORPUSCULAR VOLUME 103.8 fl (80.0-96.0); PLATELET COUNT, AUTOMATED 265 10^3/uL (150-450); WHITE BLOOD COUNT 11.4 10^3/uL (4.0-10.0)
[2019-12-09 07:42] LABS: BLOOD UREA NITROGEN 17 MG/DL (7-18); CALCIUM LEVEL 8.5 MG/DL (8.8-10.2); CARBON DIOXIDE LEVEL 33 MEQ/L (21-32); CHLORIDE LEVEL 106 MEQ/L (98-107); CREATININE FOR GFR 0.91 MG/DL (0.70-1.30); GLOMERULAR FILTRATION RATE > 60.0 (>42); GLUCOSE, FASTING 69 MG/DL (70-100); POTASSIUM SERUM 3.2 MEQ/L (3.5-5.1); SODIUM LEVEL 148 MEQ/L (136-145)
[2019-12-09] MEDS: amLODIPine 5 MG TAB PO SCH ×2 (08:03→20:16)
[2019-12-09] MEDS: LOSARTAN 50MG TABLET PO SCH (08:04)
[2019-12-09] MEDS: SINEMET 25-100 MG TAB PO SCH ×2 (08:04→20:16)
--- NOTE | 2019-12-09 09:56 | REP ---
Clinical: Small bowel obstruction. Technique: Two supine views of the abdomen and pelvis. Findings: Nasogastric tube is identified with its side port above the diaphragm and warranting advancement. Evidence for recent surgery including scattered skin bonilla. Bowel gas pattern demonstrates dilated air filled loops of small and large bowel which may represent ileus versus continued obstruction and close clinical observation is recommended. Impression: 1. Nasogastric tube warrants advancement. 2. Dilated/distended loops of small and large bowel and differential diagnosis includes continued obstruction versus ileus. Electronically Signed by Daquan Ruiz MD 12/09/2019 09:48 A
[2019-12-09 10:00] VITALS: BP 146/74
--- NOTE | 2019-12-09 10:25 | IPN ---
DATE: 12/09/2019 The patient has been afebrile overnight. The hospitalist ordered abdominal films this morning, and although the patient states he has had some flatus, he has not had any bowel movements. From a gastric drainage standpoint, he has actually had a little bit up tick in his gastric drainage this morning, up to 250 mL and his x-ray results are not back. However, reveal air-filled small bowel. It is hard to tell if this is large bowel given that they are so much air distension. Most consistent with an ileus appearance. Otherwise, on his physical exam, his abdomen is softly distended, tympanitic throughout without guarding, without rebound. His dressings were removed, revealed no erythema, drainage or discharge. IMPRESSION AND PLAN: The patient has a postoperative ileus that is still present, and after two recent small bowel obstructions, I am not surprised that this will take a while to resolve. My recommendation is that we start him on some PPN today and have a peripherally inserted central catheter (PICC) line placed tomorrow. Once the PICC line is placed, then possibly starting him on some TPN after that if he is not having resolution of his ileus. Otherwise it appears not unexpected his current position and ileus looking picture. Otherwise will continue with supportive care at this time.
[2019-12-09] MEDS: SIMETHICONE 80 MG CHEW TAB PO SCH ×4 (10:52→20:16)
[2019-12-09] MEDS: KCL 10MEQ/100ML SWI (KRUN) 10 MEQ in IV 1 EA IV SCH ×3 (10:54→15:17)
--- NOTE | 2019-12-09 11:29 | IPNPDOC ---
Text Note Date of Service The patient was seen on 12/09/19. NOTE INTERIM EVENTS: -NGT still in place, abdominal pain continues to be mild OBJECTIVE: VITAL SIGNS: Please see below. HDS, afebrile GENERAL: No distress, chronically ill appearing, frail HEENT: Normocephalic, atraumatic, dry MM NECK: Supple CARDIOVASCULAR EXAMINATION: S1, S2, no murmurs RESPIRATORY EXAMINATION: Diminished bases, no wheezing, bibasilar crackles ABDOMINAL EXAMINATION: Soft, diffuse mild tenderness to palpation, distended, hypoactive bowel sounds, NGT still in place EXTREMITIES: WWP, no LE edema SKIN: No rash NEUROLOGICAL EXAMINATION: Alert and oriented 3, no focal deficits PSYCHIATRIC EXAMINATION: Calm and cooperative LABORATORY DATA: See below. Reviewed WBC 11.4 Hgb 10.6 na 148 K 3.2 (repleted) Cr 0.91 IMAGING: Admission CT abdomen and pelvis consistent with small bowel obstruction 12/03 KUB with persistent SBO 12/06 KUB: Postop changes. There are a few persistent loops of mildly dilated bowel to the left of midline showing mild mural thickening. Bowel gas pattern is improved. MICROBIOLOGY: Please see below. ASSESSMENT: 78-year-old M with past medical history of Parkinson's disease, hypertension and recurrent small bowel obstruction who recently underwent lysis of adhesions and enterotomy now readmitted for small bowel obstruction s/p laparotomy with partial small bowel resection, lysis of adhesions and drainage of intraloop abscess on 12/[address] Medina. PLAN: 1. Small bowel obstruction. Recent admission for same reason, requiring lysis of adhesions and enterotomy, was discharged one week prior to readmission now s/p laparotomy with partial small bowel resection, lysis of adhesions and drainage of intraloop abscess on 12/[address] Medina. -nothing by mouth, NG tube, IV fluids, general surgery onboard (Dr. Medina) with Dr. Madrid on this weekend. -continue zosyn, day 4 since abscess drainage -Per surgery to get PPN today with plan for PICC line tomorrow for TPN given prolonged NPO status 2. Parkinson's disease. Continue home regimen 3. Hypertension. Continue home losartan and Norvasc. 4. Hypokalemia: repleting K. Also changed maintenance fluids to 10meqK in 1/2 NS at 80cc/hr DVT prophylaxis: Lovenox VS,Fishbone, I+O VS, Fishbone, I+O Laboratory Tests 12/09/19 06:39 Vital Signs Date Time Temp Pulse Resp B/P (MAP) Pulse Ox O2 Delivery O2 Flow Rate FiO2 12/09/19 08:03 76 145/85 12/09/19 06:00 97.1 18 96 Nasal Cannula 1.0 I&O- Last 24 Hours up to 6 AM 12/09/19 06:00 Intake Total 60 ml Output Total 450 ml Balance -390 ml PETERSON CRUZ MD Dec 09, 2019 08:54
[2019-12-09 14:00] VITALS: BP 149/85
[2019-12-09] MEDS ORDERED: KCL 10MEQ IN D5/0.45NS 1000ML 1,000 ML IV SCH (14:00)
[2019-12-09] MEDS: AMINO AC/ELECTROLYTE/DEX/CALC 1,000 ML IV SCH (17:39)
[2019-12-09 18:00] VITALS: BP 150/85
[2019-12-09] MEDS ORDERED: FAT EMULSION IV 20% 500 ML IV SCH (18:00)
[2019-12-09] MEDS: AMITRIPTYLINE 50 MG TAB PO SCH (20:16)
[2019-12-09 22:00] VITALS: BP 148/87
[2019-12-10] MEDS ORDERED: LORazepam 1 MG TAB PO STA (00:34)
[2019-12-10] MEDS: PIPERACILLIN/TAZOBACTAM SOD 3.375 GM in D5W MINI-BAG PLUS 50 ML IV SCH ×4 (01:44→20:44)
[2019-12-10] MEDS: KETOROLAC 30 MG/ML 1ML VIAL IV SCH ×4 (01:44→20:44)
[2019-12-10 02:00] VITALS: BP 153/81
[2019-12-10 05:33] LABS: HEMATOCRIT 33.4 % (42.0-52.0); HEMOGLOBIN 10.6 g/dl (13.5-17.5); MEAN CORPUSCULAR HEMOGLOBIN 31.8 pg (27.0-33.0); MEAN CORPUSCULAR HGB CONC 31.7 g/dl (32.0-36.5); MEAN CORPUSCULAR VOLUME 100.3 fl (80.0-96.0); PLATELET COUNT, AUTOMATED 245 10^3/uL (150-450); RED BLOOD COUNT 3.33 10^6/uL (4.30-6.10); WHITE BLOOD COUNT 10.4 10^3/uL (4.0-10.0)
[2019-12-10 05:57] LABS: BLOOD UREA NITROGEN 14 MG/DL (7-18); CALCIUM LEVEL 8.2 MG/DL (8.8-10.2); CARBON DIOXIDE LEVEL 31 MEQ/L (21-32); CHLORIDE LEVEL 103 MEQ/L (98-107); CREATININE FOR GFR 0.85 MG/DL (0.70-1.30); GLOMERULAR FILTRATION RATE > 60.0 (>42); GLUCOSE, FASTING 126 MG/DL (70-100); POTASSIUM SERUM 3.2 MEQ/L (3.5-5.1); SODIUM LEVEL 142 MEQ/L (136-145)
[2019-12-10 06:00] VITALS: BP 157/77
[2019-12-10] MEDS ORDERED: POTASSIUM CHLORIDE 10 MEQ SR TABLET PO ONE (06:30)
[2019-12-10] MEDS: SIMETHICONE 80 MG CHEW TAB PO SCH ×4 (08:07→21:27)
[2019-12-10] MEDS: AMINO AC/ELECTROLYTE/DEX/CALC 1,000 ML IV SCH (08:08)
[2019-12-10] MEDS: LOSARTAN 50MG TABLET PO SCH (08:08)
[2019-12-10] MEDS: amLODIPine 5 MG TAB PO SCH ×2 (08:08→21:30)
[2019-12-10] MEDS: SINEMET 25-100 MG TAB PO SCH ×2 (08:08→21:27)
[2019-12-10 10:00] VITALS: BP 154/78
--- NOTE | 2019-12-10 13:51 | IPN ---
DATE: 12/10/2019 The patient has had an ileus following his small-bowel obstructions times two. In any case, at this point, his nasogastric (NG) tube still is putting a fair bit of fluid out. He has been afebrile. His urine output has picked up since being started to on the total parenteral nutrition (TPN) but once again, his NG output has bumped up. His abdomen is less distended than it was yesterday. He did have a bowel movement and some flatus overnight, but still is distended and tympanitic. X-rays were reviewed yesterday and appears much more likely to be an ileus than a persistent small bowel obstruction. Otherwise, on his physical exam abdomen is distended, tympanitic, but much better than it was yesterday. It is not as firm and incisions are clean, dry, without any erythema, drainage or discharge. IMPRESSION/PLAN: The patient has an ileus that is slow to resolve. I have ordered a peripherally inserted central catheter (PICC) line for him to have some TPN. I have ordered the TPN for today and will keep him nothing by mouth with the NG tube in place. I would like to see this improve much more prior to discontinuing the NG tube. I have concerns that he will become more distended and have issues with that. Otherwise, continue with supportive care at this site.
[2019-12-10 14:00] VITALS: BP 156/82
--- NOTE | 2019-12-10 16:06 | IPNPDOC ---
Text Note Date of Service The patient was seen on 12/10/19. NOTE SUBJECTIVE and INTERIM EVENTS: -No complaints this morning -Was started on PPN yesterday -NGT was readjusted and advanced yesterday evening -No complaints this morning OBJECTIVE: VITAL SIGNS: Please see below. HDS, afebrile GENERAL: No distress, chronically ill appearing, frail HEENT: Normocephalic, atraumatic, dry MM NECK: Supple CARDIOVASCULAR EXAMINATION: S1, S2, no murmurs RESPIRATORY EXAMINATION: Diminished bases, no wheezing, bibasilar crackles ABDOMINAL EXAMINATION: Soft, diffuse mild tenderness to palpation, distended, hypoactive bowel sounds, NGT in place, abdominal surgical incision with bonilla in place, no erythema EXTREMITIES: WWP, no LE edema SKIN: No rash NEUROLOGICAL EXAMINATION: Alert and oriented 3, no focal deficits PSYCHIATRIC EXAMINATION: Calm and cooperative LABORATORY DATA: See below. Reviewed WBC 10.4 Hgb 10.6 platelets 245 K 3.2 (repleted) Cr 0.85 IMAGING: Admission CT abdomen and pelvis consistent with small bowel obstruction 12/03 KUB with persistent SBO 12/06 KUB: Postop changes. There are a few persistent loops of mildly dilated bowel to the left of midline showing mild mural thickening. Bowel gas pattern is improved. 12/08 KUB: 1. Nasogastric tube warrants advancement. 2. Dilated/distended loops of small and large bowel and differential diagnosis includes continued obstruction versus ileus. MICROBIOLOGY: Please see below. ASSESSMENT: 78-year-old M with past medical history of Parkinson's disease, hypertension and recurrent small bowel obstruction who recently underwent lysis of adhesions and enterotomy now readmitted for small bowel obstruction s/p laparotomy with partial small bowel resection, lysis of adhesions and drainage of intraloop abscess on 12/[address] Medina now pending a PICC for TPN while awaiting ileus resolution before removal of NGT and introducing PO. PLAN: 1. Small bowel obstruction. Recent admission for same reason, requiring lysis of adhesions and enterotomy, was discharged one week prior to readmission now s/p laparotomy with partial small bowel resection, lysis of adhesions and drainage of intraloop abscess on 12/[address] Medina. -nothing by mouth, NG tube, IV fluids, general surgery onboard (Dr. Medina) with Dr. Madrid on. -continue zosyn, day 5 since abscess drainage -Per surgery, pending PICC line for TPN given prolonged NPO status 2. Parkinson's disease. Continue home regimen 3. Hypertension. Continue home losartan and Norvasc. 4. Hypokalemia: repleting K. 40 PO and 20 IV DVT prophylaxis: Lovenox VS,Fishbone, I+O VS, Fishbone, I+O Laboratory Tests 12/10/19 05:13 Vital Signs Date Time Temp Pulse Resp B/P (MAP) Pulse Ox O2 Delivery O2 Flow Rate FiO2 12/10/19 10:00 97.9 70 17 154/78 (103) 95 Room Air 12/09/19 10:00 1.0 I&O- Last 24 Hours up to 6 AM 12/10/19 05:59 Intake Total 2095 ml Output Total 2000 ml Balance 95 ml PETERSON CRUZ MD Dec 10, 2019 16:06
[2019-12-10] MEDS: KCL 10MEQ/100ML SWI (KRUN) 10 MEQ in IV 1 EA IV SCH ×2 (16:31→19:32)
[2019-12-10] MEDS ORDERED: LIDOCAINE 1% MDV 20ML VIAL As Ordered ONE (17:49)
[2019-12-10] MEDS ORDERED: MULTIVITAMIN -ADULT INJECTION 10 ML, CR/CU/SE/MN/ZN INJ 1 ML in AMINO AC/ELECTROLYTE/DE... IV SCH (18:00)
[2019-12-10] MEDS ORDERED: FAT EMULSION IV 20% 500 ML IV SCH (18:00)
[2019-12-10] MEDS: AMITRIPTYLINE 50 MG TAB PO SCH (21:30)
[2019-12-10 22:00] VITALS: BP 149/78
[2019-12-11 02:00] VITALS: BP 144/76
[2019-12-11] MEDS: PIPERACILLIN/TAZOBACTAM SOD 3.375 GM in D5W MINI-BAG PLUS 50 ML IV SCH ×4 (03:14→20:23)
[2019-12-11] MEDS: KETOROLAC 30 MG/ML 1ML VIAL IV SCH ×4 (03:15→20:24)
[2019-12-11 06:00] VITALS: BP 142/75
[2019-12-11] MEDS: amLODIPine 5 MG TAB PO SCH ×2 (08:36→21:39)
[2019-12-11] MEDS: LOSARTAN 50MG TABLET PO SCH (08:36)
[2019-12-11] MEDS: SINEMET 25-100 MG TAB PO SCH ×2 (08:36→21:38)
[2019-12-11] MEDS: SIMETHICONE 80 MG CHEW TAB PO SCH ×4 (08:36→21:38)
[2019-12-11 09:26] LABS: BASO % 0.2 % (0.0-1.0); EOS # 0.2 10^3/uL (0.0-0.5); EOS % 2.2 % (0.0-3.0); HEMATOCRIT 33.2 % (42.0-52.0); HEMOGLOBIN 10.7 g/dl (13.5-17.5); LYMPH # 0.7 10^3/uL (1.5-5.0); LYMPH % 6.9 % (24.0-44.0); MEAN CORPUSCULAR HEMOGLOBIN 31.9 pg (27.0-33.0); MEAN CORPUSCULAR HGB CONC 32.2 g/dl (32.0-36.5); MEAN CORPUSCULAR VOLUME 99.1 fl (80.0-96.0); MONO # 0.6 10^3/uL (0.0-0.8); MONO % 6.2 % (0.0-5.0); NEUTROPHILS # 8.6 10^3/uL (1.5-8.5); NEUTROPHILS % 84.2 % (36.0-66.0); PLATELET COUNT, AUTOMATED 232 10^3/uL (150-450); RED BLOOD COUNT 3.35 10^6/uL (4.30-6.10); WHITE BLOOD COUNT 10.3 10^3/uL (4.0-10.0)
[2019-12-11 09:47] LABS: MAGNESIUM LEVEL 2.3 MG/DL (1.8-2.4); PHOSPHORUS LEVEL 2.7 MG/DL (2.5-4.9)
[2019-12-11 09:51] LABS: ALBUMIN 2.2 GM/DL (3.2-5.2); ALT/SGPT 13 U/L (12-78); BILIRUBIN,TOTAL 0.7 MG/DL (0.2-1.0); BLOOD UREA NITROGEN 18 MG/DL (7-18); CALCIUM LEVEL 8.2 MG/DL (8.8-10.2); CARBON DIOXIDE LEVEL 36 MEQ/L (21-32); CHLORIDE LEVEL 99 MEQ/L (98-107); CREATININE FOR GFR 1.04 MG/DL (0.70-1.30); GLOMERULAR FILTRATION RATE > 60.0 (>42); GLUCOSE, FASTING 155 MG/DL (70-100); POTASSIUM SERUM 3.5 MEQ/L (3.5-5.1); SODIUM LEVEL 141 MEQ/L (136-145); TOTAL PROTEIN 5.9 GM/DL (6.4-8.2)
[2019-12-11 10:00] VITALS: BP 144/76
[2019-12-11 14:00] VITALS: BP 137/71
--- NOTE | 2019-12-11 16:09 | REP ---
PICC line insertion under ultrasound guidance. The procedure was performed by SANTIAGO Morales, under the direct supervision of Dr. Martinez. The risks and benefits of the procedure were explained to the patient and informed consent was obtained both verbally and written. Directly prior to the start of the procedure, a formal timeout was completed in the procedure room. The right basilic vein was localized using ultrasound guidance. The skin was prepped and draped in the sterile fashion. 1 ml 1% lidocaine 10 mg/ml was used as a local anesthetic. Using ultrasound guidance the right basilic vein was cannulated and a 0.018 guidewire was inserted and advanced to the SVC using fluoroscopic guidance. The needle was removed and a 5.5 Chadian dilator and peel-away sheath was inserted over the guidewire. A 5.5 Chadian dual lumen catheter was cut to the length of 35 cm. The dilator was removed and the catheter was inserted over the guide wire with the tip ending in the SVC. The peel-away sheath was removed and the catheter was flushed with heparinized saline as per hospital protocol. The catheter was affixed to the skin and a sterile dressing was applied. The patient tolerated the procedure well and there were no immediate complications. 0.5 minutes of fluoroscopy time was utilized for this procedure. Some fluoroscopic images are performed with last image hold technology. These images require no additional radiation. Reviewed by SANTIAGO Hughes 12/11/2019 07:55 A Electronically Signed by Del Martinez MD 12/11/2019 08:01 A
[2019-12-11] MEDS ORDERED: FAT EMULSION IV 20% 500 ML IV SCH (18:00)
[2019-12-11] MEDS ORDERED: AMINO AC IV SCH (18:00)
[2019-12-11] MEDS ORDERED: POTASSIUM CHLORIDE IV SCH (18:00)
[2019-12-11] MEDS ORDERED: DEX IV SCH (18:00)
[2019-12-11] MEDS ORDERED: CALC IV SCH (18:00)
[2019-12-11] MEDS ORDERED: ELECTROLYTE IV SCH (18:00)
--- NOTE | 2019-12-11 18:40 | IPNPDOC ---
Date Seen The patient was seen on 12/11/19. Progress Note SUBJECTIVE: Passing gas, some loose, watery stool. Tolerating TPN well. Slow resolving ileus, NG tube still in place. Minimal in bedside canister. Denies n/v, fevers, chills, shortness of breath, chest pain. OBJECTIVE: VITAL SIGNS: Please see below. PHYSICAL EXAMINATION: GENERAL: No distress, comfortable in bed HEENT: Normocephalic, atraumatic, dry MM, NG tube in place NECK: Supple CARDIOVASCULAR EXAMINATION: S1, S2, no murmurs RESPIRATORY EXAMINATION: Diminished bases, no wheezing, bibasilar crackles ABDOMINAL EXAMINATION: Soft, diffuse mild tenderness to palpation, distended, hypoactive bowel sounds, NGT in place, abdominal surgical incision with bonilla in place, clean incision without erythema or drainage EXTREMITIES: WWP, no LE edema SKIN: No rash NEUROLOGICAL EXAMINATION: Alert and oriented 3, no focal deficits LABORATORY DATA: Please see below IMAGING: Admission CT abdomen and pelvis consistent with small bowel obstruction 12/03 KUB with persistent SBO 12/06 KUB: Postop changes. There are a few persistent loops of mildly dilated bowel to the left of midline showing mild mural thickening. Bowel gas pattern is improved. 12/08 KUB: 1. Nasogastric tube warrants advancement. 2. Dilated/distended loops of small and large bowel and differential diagnosis includes continued obstruction versus ileus. MICROBIOLOGY: Please see below. ASSESSMENT: 78-year-old M with past medical history of Parkinson's disease, hypertension and recurrent small bowel obstruction who recently underwent lysis of adhesions and enterotomy now readmitted for small bowel obstruction s/p laparotomy with partial small bowel resection, lysis of adhesions and drainage of intraloop abscess on 12/[address] Medina. PLAN: 1. Small bowel obstruction- resolved with now slow resolving ileus. Recent admission for same reason, requiring lysis of adhesions and enterotomy, was discharged one week prior to readmission now s/p laparotomy with partial small bowel resection, lysis of adhesions and drainage of intraloop abscess on 12/[address] Medina. -Passing gas, some watery stool. C/w NPO, NG tube, IV fluids, general surgery following. -continue zosyn, day 6 since abscess drainage -TPN via PICC 2. Parkinson's disease. Continue home regimen 3. Hypertension. Continue home losartan and Norvasc. 4. Hypokalemia- Resolved. -F/u daily labs. 5. GI px. PPI IV. 6. DVT px. Started on lovenox SC. DISPOSITION: C/w current treatment. Plan is discharge to prior living situation when medically improved. VS, I&O, 24H, Fishbone Vital Signs/I&O Vital Signs Date Time Temp Pulse Resp B/P (MAP) Pulse Ox O2 Delivery O2 Flow Rate FiO2 12/11/19 14:00 98.2 60 17 137/71 (93) 96 Room Air 12/09/19 10:00 1.0 I&O- Last 24 Hours up to 6 AM 12/11/19 05:59 Intake Total 0 ml Output Total 1750 ml Balance -1750 ml Laboratory Data 24H LABS Laboratory Tests 2 12/11/19 09:10: Immature Granulocyte % (Auto) 0.3, Neutrophils (%) (Auto) 84.2H, Lymphocytes (%) (Auto) 6.9L, Monocytes (%) (Auto) 6.2H, Eosinophils (%) (Auto) 2.2, Basophils (%) (Auto) 0.2, Neutrophils # (Auto) 8.6H, Lymphocytes # (Auto) 0.7L, Monocytes # (Auto) 0.6, Eosinophils # (Auto) 0.2, Basophils # (Auto) 0.0, Nucleated Red Blood Cells % (auto) 0.0, Anion Gap 6L, Glomerular Filtration Rate > 60.0, Calcium Level 8.2L, Phosphorus Level 2.7, Magnesium Level 2.3, Total Bilirubin 0.7, Aspartate Amino Transf (AST/SGOT) 27, Alanine Aminotransferase (ALT/SGPT) 1 3, Alkaline Phosphatase 68, Total Protein 5.9L, Albumin 2.2L, Albumin/Globulin Ratio 0.6 CBC/BMP Laboratory Tests 12/11/19 09:10 Microbiology Microbiology 12/06/19 Gram Stain - Final, Complete 12/06/19 Abscess Culture - Final, Complete Staphylococcus Epidermidis Corynebacterium Species 12/06/19 Anaerobic Culture - Final, Complete 12/05/19 Respiratory Virus Panel (PCR) (PATO) - Final, Complete 12/03/19 Blood Culture - Final, Complete NO GROWTH AFTER 5 DAYS 12/03/19 Blood Culture - Final, Complete NO GROWTH AFTER 5 DAYS 12/03/19 Blood Culture - Final, Complete NO GROWTH AFTER 5 DAYS 12/03/19 Blood Culture - Final, Complete NO GROWTH AFTER 5 DAYS Current Medications Current Medications Medications (Trade) Dose Ordered Sig/Atiya Route PRN Reason Start Time Stop Time Status Last Admin Dose Admin Acetaminophen (Tylenol Tab) 1,000 mg TID PRN PO PAIN / FEVER 12/03/19 06:45 12/03/19 13:12 DC Amino Ac/Electrol/ Dextrose/Calcium 1,000 ml @ 75 mls/hr [id number] IV 12/09/19 18:00 12/10/19 17:59 DC 12/10/19 08:08 Amitriptyline HCl (Elavil) 50 mg QHS PO 12/03/19 21:00 12/10/19 21:30 Amlodipine Besylate (Norvasc) 5 mg BID PO 12/03/19 09:00 12/11/19 08:36 Carbidopa/Levodopa (Sinemet 25/100) 1 tab BID PO 12/03/19 09:00 12/11/19 08:36 Ciprofloxacin 400 mg/IV Miscellaneous Supplies 200 ml @ 200 mls/hr BID IV 12/03/19 09:00 12/04/19 16:40 DC 12/04/19 10:05 Enoxaparin Sodium (Lovenox) 40 mg DAILY SC 12/03/19 09:00 12/05/19 23:12 DC 12/05/19 08:21 Fat Emulsion Intravenous 500 ml @ 20 mls/hr ONCE@1800 IV 12/09/19 18:00 12/10/19 17:59 DC 12/09/19 17:39 Fat Emulsion Intravenous 500 ml @ 20 mls/hr ONCE@1800 IV 12/10/19 18:00 12/11/19 17:59 DC 12/10/19 18:44 Fat Emulsion Intravenous 500 ml @ 20 mls/hr ONCE@1800 IV 12/11/19 18:00 12/12/19 17:59 12/11/19 17:46 Fentanyl Citrate (Sublimaze) 25 mcg Q5MP PRN IV PAIN LEVEL 5-10 12/07/19 00:45 12/07/19 02:00 DC Finasteride (Proscar) 5 mg DAILY PO 12/03/19 09:00 12/03/19 13:19 DC 12/03/19 09:58 Home Med (Med Rec Complete!) ASDIRECTED XX 12/03/19 06:15 12/03/19 06:08 DC Ketorolac Tromethamine (ToRADol) 15 mg Q6H IV 12/07/19 02:00 12/12/19 01:59 12/11/19 13:40 Lactated Ringer's 1,000 ml @ 100 mls/hr Q10H IV 12/07/19 00:45 12/07/19 02:00 DC Lorazepam (Ativan) 1 mg STAT STAT PO 12/10/19 00:34 12/10/19 00:36 DC 12/10/19 00:43 Losartan Potassium (Cozaar) 100 mg DAILY PO 12/03/19 09:00 12/11/19 08:36 Metoclopramide HCl (REGLAN INJection) 10 mg Q6HP PRN IV NAUSEA OR VOMITING 12/05/19 10:00 12/05/19 10:03 Metoclopramide HCl (REGLAN INJection) 10 mg Q6HP PRN IV NAUSEA OR VOMITING 12/07/19 00:45 12/07/19 02:00 DC Metronidazole 500 mg/IV Miscellaneous Supplies 100 ml @ 100 mls/hr Q8H IV 12/03/19 08:00 12/04/19 16:40 DC 12/04/19 16:18 Morphine Sulfate (Morphine Sulfate Inj) 2 mg Q2H PRN IV MODERATE/SEVERE PAIN (PS 5-10) 12/07/19 01:00 12/07/19 18:28 Morphine Sulfate (Morphine Sulfate Inj) 2 mg Q4H PRN IV MODERATE PAIN (PS 5-7) 12/03/19 13:15 12/07/19 01:02 DC 12/04/19 19:25 Morphine Sulfate (Morphine Sulfate Inj) 4 mg Q30M PRN IV SEVERE PAIN (PS 8-10) 12/03/19 03:30 12/03/19 13:12 DC 12/03/19 03:36 Multivitamins 10 ml/Chromium/ Copper/Manganese/ Seleni/Zn 1 ml/ Amino Ac/Electrol/ Dextrose/Calcium 2,011 ml @ 75 mls/hr ONCE@1800 IV 12/10/19 18:00 12/11/19 17:59 DC 12/10/19 18:44 Ondansetron HCl (ZOFRAN INJection) 4 mg Q4HP PRN IV NAUSEA OR VOMITING 12/07/19 00:45 12/07/19 02:00 DC Ondansetron HCl (ZOFRAN INJection) 4 mg Q6HP PRN IV NAUSEA OR VOMITING 12/05/19 08:15 12/05/19 08:21 Piperacillin Sod/ Tazobactam Sod 3.375 gm/Dextrose 50 ml @ 50 mls/hr Q6H IV 12/07/19 02:00 12/11/19 13:39 Potassium Chloride 10 meq/ IV Miscellaneous Supplies 100 ml @ 100 mls/hr Q1H IV 12/09/19 10:00 12/09/19 13:59 DC 12/09/19 15:17 Potassium Chloride 10 meq/ IV Miscellaneous Supplies 100 ml @ 100 mls/hr Q1H IV 12/10/19 17:00 12/10/19 18:59 DC 12/10/19 19:32 Potassium Chloride 22.2 meq/ Amino Ac/Electrol/ Dextrose/Calcium 2,011.1 ml @ 75 mls/hr ONCE@1800 IV 12/11/19 18:00 12/12/19 17:59 12/11/19 17:46 Potassium Chloride/Dextrose/ Sod Cl 1,000 ml @ 80 mls/hr [id number] IV 12/09/19 14:00 12/09/19 09:56 DC Rosuvastatin Calcium (Crestor) 20 mg QHS PO 12/03/19 21:00 12/03/19 13:12 DC Simethicone (Mylicon) 120 mg QID PO 12/09/19 09:00 12/11/19 17:45 Sodium Chloride 1,000 ml @ 80 mls/hr [id number] IV 12/03/19 06:45 12/09/19 08:51 DC 12/09/19 00:23 Tramadol HCl (Ultram) 50 mg TID PO 12/03/19 09:00 12/03/19 13:12 DC 12/03/19 09:57 Allergies Coded Allergies: No Known Allergies (Unverified , 09/29/18) Rhoda Tucker MD Dec 11, 2019 18:40
[2019-12-11] MEDS: AMITRIPTYLINE 50 MG TAB PO SCH (21:38)
[2019-12-11 22:00] VITALS: BP 137/73
[2019-12-12] MEDS: PIPERACILLIN/TAZOBACTAM SOD 3.375 GM in D5W MINI-BAG PLUS 50 ML IV SCH ×4 (01:53→20:17)
[2019-12-12 02:00] VITALS: BP 116/61
[2019-12-12 05:44] LABS: HEMATOCRIT 29.6 % (42.0-52.0); HEMOGLOBIN 9.4 g/dl (13.5-17.5); MEAN CORPUSCULAR HGB CONC 31.8 g/dl (32.0-36.5); MEAN CORPUSCULAR VOLUME 100.7 fl (80.0-96.0); PLATELET COUNT, AUTOMATED 194 10^3/uL (150-450); RED BLOOD COUNT 2.94 10^6/uL (4.30-6.10); WHITE BLOOD COUNT 9.3 10^3/uL (4.0-10.0)
[2019-12-12 06:00] VITALS: BP 137/72
[2019-12-12 06:12] LABS: ALT/SGPT 8 U/L (12-78); BILIRUBIN,TOTAL 0.7 MG/DL (0.2-1.0); BLOOD UREA NITROGEN 24 MG/DL (7-18); CALCIUM LEVEL 8.1 MG/DL (8.8-10.2); CARBON DIOXIDE LEVEL 34 MEQ/L (21-32); CHLORIDE LEVEL 98 MEQ/L (98-107); CREATININE FOR GFR 1.02 MG/DL (0.70-1.30); GLOMERULAR FILTRATION RATE > 60.0 (>42); GLUCOSE, FASTING 130 MG/DL (70-100); POTASSIUM SERUM 3.5 MEQ/L (3.5-5.1); SODIUM LEVEL 136 MEQ/L (136-145); TOTAL PROTEIN 5.5 GM/DL (6.4-8.2)
[2019-12-12] MEDS: SIMETHICONE 80 MG CHEW TAB PO SCH ×4 (09:05→20:18)
[2019-12-12] MEDS: LOSARTAN 50MG TABLET PO SCH (09:05)
[2019-12-12] MEDS: SINEMET 25-100 MG TAB PO SCH ×2 (09:06→20:18)
[2019-12-12] MEDS: amLODIPine 5 MG TAB PO SCH ×2 (09:06→22:05)
[2019-12-12] MEDS: MIRALAX *UNIT DOSE* 17GM PACKET PO SCH (09:06)
[2019-12-12] MEDS: PANTOPRAZOLE 40MG VIAL (C9113 PER 1) IV SCH (09:06)
[2019-12-12] MEDS: ENOXAPARIN 40MG/0.4ML SYRINGE (J1650 PER 10MG) SC SCH (09:07)
--- NOTE | 2019-12-12 09:51 | IPNPDOC ---
Text Note Date of Service The patient was seen on 12/11/19. NOTE Patient reports he is comfortable, starting to pass flatus intermittently, no BMs or urge to move bowels yet. Denies nausea or vomiting VS: I/O ngt: 650 mLs (900 mLs overnight) On exam, looks comfortable ngt with slight coffee ground output. abdomen slightly rounded, mildly distended, soft, nontender on palpation, midline incision and port site incisions with dry dressings Impression/Plan: POD4 ex lap bowel resection, lysis of adhesion for small bowel obstruction Hes starting to have some bowel function. I will clamp the ngt and see if he tolerates this adviced to ambulate the hallways continue tpn while awaiting bowel function VS,Eduard, I+O VS, Eduard, I+O Laboratory Tests 12/11/19 09:10 12/12/19 05:15 Vital Signs Date Time Temp Pulse Resp B/P (MAP) Pulse Ox O2 Delivery O2 Flow Rate FiO2 12/12/19 06:00 98.1 69 19 137/72 (93) 95 Room Air 12/09/19 10:00 1.0 I&O- Last 24 Hours up to 6 AM 12/12/19 06:00 Intake Total 2480 ml Output Total 2870 ml Balance -390 ml LATOYA BRISCOE MD Dec 12, 2019 08:16
[2019-12-12 10:00] VITALS: BP 125/68
[2019-12-12 14:30] VITALS: BP 122/74
[2019-12-12] MEDS ORDERED: POTASSIUM CHLORIDE 10 MEQ SR TABLET PO ONE (16:00)
--- NOTE | 2019-12-12 17:49 | IPNPDOC ---
Date Seen The patient was seen on 12/12/19. Progress Note SUBJECTIVE: Passing gas but no bowel movement. NGT clamped. Denies n/v, fevers, chills, shortness of breath, chest pain. OBJECTIVE: VITAL SIGNS: Please see below. PHYSICAL EXAMINATION: GENERAL: No distress, comfortable in bed HEENT: Normocephalic, atraumatic, dry MM, NG tube in place NECK: Supple CARDIOVASCULAR EXAMINATION: S1, S2, no murmurs RESPIRATORY EXAMINATION: Diminished bases, no wheezing, bibasilar crackles ABDOMINAL EXAMINATION: Soft, diffuse mild tenderness to palpation, distended, hypoactive bowel sounds, NGT in place, abdominal surgical incision with bonilla in place, clean incision without erythema or drainage EXTREMITIES: WWP, no LE edema SKIN: No rash NEUROLOGICAL EXAMINATION: Alert and oriented 3, no focal deficits LABORATORY DATA: Please see below IMAGING: Admission CT abdomen and pelvis consistent with small bowel obstruction 12/03 KUB with persistent SBO 12/06 KUB: Postop changes. There are a few persistent loops of mildly dilated bowel to the left of midline showing mild mural thickening. Bowel gas pattern is improved. 12/08 KUB: 1. Nasogastric tube warrants advancement. 2. Dilated/distended loops of small and large bowel and differential diagnosis includes continued obstruction versus ileus. ASSESSMENT: 78-year-old M with past medical history of Parkinson's disease, hypertension and recurrent small bowel obstruction who recently underwent lysis of adhesions and enterotomy now readmitted for small bowel obstruction s/p laparotomy with partial small bowel resection, lysis of adhesions and drainage of intraloop abscess on 12/[address] Medina. PLAN: 1. Small bowel obstruction post-op day 4 for ex lap, bowel resection, lysis of adhesions. SBO resolved with now slow resolving ileus. -Passing gas, no BM -Recent admission for same reason, requiring lysis of adhesions and enterotomy, was discharged one week prior to readmission now s/p laparotomy with partial small bowel resection, lysis of adhesions and drainage of intraloop abscess on 12/[address] Medina. C/w NPO, NG tube, IV fluids, TPN via PICC, zosyn day 7 since abscess drainage -Encourage ambulation during the day -Gen surgery following 2. Parkinson's disease. Continue home regimen 3. Hypertension. Continue home losartan and Norvasc. 4. Hypokalemia- Resolved. -F/u daily labs. 5. GI px. PPI IV. 6. DVT px. Started on lovenox SC. DISPOSITION: C/w current treatment. Plan is discharge to prior living situation when medically improved. VS, I&O, 24H, Fishbone Vital Signs/I&O Vital Signs Date Time Temp Pulse Resp B/P (MAP) Pulse Ox O2 Delivery O2 Flow Rate FiO2 12/12/19 10:00 97.8 60 18 125/68 (87) 97 Room Air 12/09/19 10:00 1.0 I&O- Last 24 Hours up to 6 AM 12/12/19 06:00 Intake Total 2480 ml Output Total 2870 ml Balance -390 ml Laboratory Data 24H LABS Laboratory Tests 2 12/12/19 05:15: Nucleated Red Blood Cells % (auto) 0.0, Anion Gap 4L, Glomerular Filtration Rate > 60.0, Calcium Level 8.1L, Total Bilirubin 0.7, Aspartate Amino Transf (AST/SGOT) 18, Alanine Aminotransferase (ALT/SGPT) 8L, Alkaline Phosphatase 55, Total Protein 5.5L, Albumin 2.0L, Albumin/Globulin Ratio 0.6 CBC/BMP Laboratory Tests 12/12/19 05:15 Microbiology Microbiology 12/06/19 Gram Stain - Final, Complete 12/06/19 Abscess Culture - Final, Complete Staphylococcus Epidermidis Corynebacterium Species 12/06/19 Anaerobic Culture - Final, Complete 12/05/19 Respiratory Virus Panel (PCR) (PATO) - Final, Complete 12/03/19 Blood Culture - Final, Complete NO GROWTH AFTER 5 DAYS 12/03/19 Blood Culture - Final, Complete NO GROWTH AFTER 5 DAYS 12/03/19 Blood Culture - Final, Complete NO GROWTH AFTER 5 DAYS 12/03/19 Blood Culture - Final, Complete NO GROWTH AFTER 5 DAYS Current Medications Current Medications Medications (Trade) Dose Ordered Sig/Atiya Route PRN Reason Start Time Stop Time Status Last Admin Dose Admin Acetaminophen (Tylenol Tab) 1,000 mg TID PRN PO PAIN / FEVER 12/03/19 06:45 12/03/19 13:12 DC Amino Ac/Electrol/ Dextrose/Calcium 1,000 ml @ 75 mls/hr [id number] IV 12/09/19 18:00 12/10/19 17:59 DC 12/10/19 08:08 Amino Ac/Electrol/ Dextrose/Calcium 2,000 ml @ 60 mls/hr ONCE@1800 IV 12/12/19 18:00 12/13/19 17:59 Amitriptyline HCl (Elavil) 50 mg QHS PO 12/03/19 21:00 12/11/19 21:38 Amlodipine Besylate (Norvasc) 5 mg BID PO 12/03/19 09:00 12/12/19 09:06 Carbidopa/Levodopa (Sinemet 25/100) 1 tab BID PO 12/03/19 09:00 12/12/19 09:06 Ciprofloxacin 400 mg/IV Miscellaneous Supplies 200 ml @ 200 mls/hr BID IV 12/03/19 09:00 12/04/19 16:40 DC 12/04/19 10:05 Enoxaparin Sodium (Lovenox) 40 mg DAILY SC 12/03/19 09:00 12/05/19 23:12 DC 12/05/19 08:21 Enoxaparin Sodium (Lovenox) 40 mg DAILY SC 12/12/19 09:00 12/12/19 09:07 Fat Emulsion Intravenous 500 ml @ 20 mls/hr ONCE@1800 IV 12/09/19 18:00 12/10/19 17:59 DC 12/09/19 17:39 Fat Emulsion Intravenous 500 ml @ 20 mls/hr ONCE@1800 IV 12/10/19 18:00 12/11/19 17:59 DC 12/10/19 18:44 Fat Emulsion Intravenous 500 ml @ 20 mls/hr ONCE@1800 IV 12/11/19 18:00 12/12/19 17:59 12/11/19 17:46 Fat Emulsion Intravenous 500 ml @ 20 mls/hr ONCE@1800 IV 12/12/19 18:00 12/13/19 17:59 Fentanyl Citrate (Sublimaze) 25 mcg Q5MP PRN IV PAIN LEVEL 5-10 12/07/19 00:45 12/07/19 02:00 DC Finasteride (Proscar) 5 mg DAILY PO 12/03/19 09:00 12/03/19 13:19 DC 12/03/19 09:58 Home Med (Med Rec Complete!) ASDIRECTED XX 12/03/19 06:15 12/03/19 06:08 DC Insulin Human Lispro (HumaLOG INSULIN) See Protocol Table Q6H SC 12/12/19 18:00 12/13/19 12:01 Ketorolac Tromethamine (ToRADol) 15 mg Q6H IV 12/07/19 02:00 12/12/19 01:59 DC 12/11/19 20:24 Lactated Ringer's 1,000 ml @ 100 mls/hr Q10H IV 12/07/19 00:45 12/07/19 02:00 DC Lorazepam (Ativan) 1 mg STAT STAT PO 12/10/19 00:34 12/10/19 00:36 DC 12/10/19 00:43 Losartan Potassium (Cozaar) 100 mg DAILY PO 12/03/19 09:00 12/12/19 09:05 Metoclopramide HCl (REGLAN INJection) 10 mg Q6HP PRN IV NAUSEA OR VOMITING 12/05/19 10:00 12/05/19 10:03 Metoclopramide HCl (REGLAN INJection) 10 mg Q6HP PRN IV NAUSEA OR VOMITING 12/07/19 00:45 12/07/19 02:00 DC Metronidazole 500 mg/IV Miscellaneous Supplies 100 ml @ 100 mls/hr Q8H IV 12/03/19 08:00 12/04/19 16:40 DC 12/04/19 16:18 Morphine Sulfate (Morphine Sulfate Inj) 2 mg Q2H PRN IV MODERATE/SEVERE PAIN (PS 5-10) 12/07/19 01:00 12/07/19 18:28 Morphine Sulfate (Morphine Sulfate Inj) 2 mg Q4H PRN IV MODERATE PAIN (PS 5-7) 12/03/19 13:15 12/07/19 01:02 DC 12/04/19 19:25 Morphine Sulfate (Morphine Sulfate Inj) 4 mg Q30M PRN IV SEVERE PAIN (PS 8-10) 12/03/19 03:30 12/03/19 13:12 DC 12/03/19 03:36 Multivitamins 10 ml/Chromium/ Copper/Manganese/ Seleni/Zn 1 ml/ Amino Ac/Electrol/ Dextrose/Calcium 2,011 ml @ 75 mls/hr ONCE@1800 IV 12/10/19 18:00 12/11/19 17:59 DC 12/10/19 18:44 Ondansetron HCl (ZOFRAN INJection) 4 mg Q4HP PRN IV NAUSEA OR VOMITING 12/07/19 00:45 12/07/19 02:00 DC Ondansetron HCl (ZOFRAN INJection) 4 mg Q6HP PRN IV NAUSEA OR VOMITING 12/05/19 08:15 12/05/19 08:21 Oxycodone/ Acetaminophen (Percocet 5mg/ 325mg Tablet) 1 tab Q4HP PRN PO MILD/MODERATE PAIN (PS 1-7) 12/12/19 13:30 Pantoprazole Sodium (Protonix) 40 mg DAILY IV 12/12/19 09:00 12/12/19 09:06 Piperacillin Sod/ Tazobactam Sod 3.375 gm/Dextrose 50 ml @ 50 mls/hr Q6H IV 12/07/19 02:00 12/12/19 14:18 Polyethylene Glycol (Miralax) 1 pkt DAILY PO 12/12/19 09:00 12/12/19 09:06 Potassium Chloride 10 meq/ IV Miscellaneous Supplies 100 ml @ 100 mls/hr Q1H IV 12/09/19 10:00 12/09/19 13:59 DC 12/09/19 15:17 Potassium Chloride 10 meq/ IV Miscellaneous Supplies 100 ml @ 100 mls/hr Q1H IV 12/10/19 17:00 12/10/19 18:59 DC 12/10/19 19:32 Potassium Chloride 22.2 meq/ Amino Ac/Electrol/ Dextrose/Calcium 2,011.1 ml @ 75 mls/hr ONCE@1800 IV 12/11/19 18:00 12/12/19 17:59 12/11/19 17:46 Potassium Chloride/Dextrose/ Sod Cl 1,000 ml @ 80 mls/hr [id number] IV 12/09/19 14:00 12/09/19 09:56 DC Rosuvastatin Calcium (Crestor) 20 mg QHS PO 12/03/19 21:00 12/03/19 13:12 DC Simethicone (Mylicon) 120 mg QID PO 12/09/19 09:00 12/12/19 14:18 Sodium Chloride 1,000 ml @ 80 mls/hr [id number] IV 12/03/19 06:45 12/09/19 08:51 DC 12/09/19 00:23 Tramadol HCl (Ultram) 50 mg TID PO 12/03/19 09:00 12/03/19 13:12 DC 12/03/19 09:57 Allergies Coded Allergies: No Known Allergies (Unverified , 09/29/18) Rhoda Tucker MD Dec 12, 2019 17:49
[2019-12-12] MEDS ORDERED: AMINO AC/ELECTROLYTE/DEX/CALC 2,000 ML IV SCH (18:00)
[2019-12-12] MEDS ORDERED: FAT EMULSION IV 20% 500 ML IV SCH (18:00)
[2019-12-12] MEDS: HumaLOG INSULIN (NovoLOG) PER UNIT SC SCH (18:58)
[2019-12-12] MEDS: AMITRIPTYLINE 50 MG TAB PO SCH (20:18)
[2019-12-12 22:00] VITALS: BP 99/57
[2019-12-12 22:04] VITALS: BP 99/54
[2019-12-13] MEDS: HumaLOG INSULIN (NovoLOG) PER UNIT SC SCH ×4 (00:04→17:15)
[2019-12-13] MEDS: PERCOCET 5MG/325MG TAB PO PRN (00:05)
[2019-12-13 02:00] VITALS: BP 105/58
[2019-12-13] MEDS: PIPERACILLIN/TAZOBACTAM SOD 3.375 GM in D5W MINI-BAG PLUS 50 ML IV SCH ×4 (02:00→19:42)
[2019-12-13 06:00] VITALS: BP 125/68
[2019-12-13 06:51] LABS: HEMATOCRIT 26.4 % (42.0-52.0); HEMOGLOBIN 8.2 g/dl (13.5-17.5); MEAN CORPUSCULAR HEMOGLOBIN 31.7 pg (27.0-33.0); MEAN CORPUSCULAR HGB CONC 31.1 g/dl (32.0-36.5); MEAN CORPUSCULAR VOLUME 101.9 fl (80.0-96.0); PLATELET COUNT, AUTOMATED 198 10^3/uL (150-450); RED BLOOD COUNT 2.59 10^6/uL (4.30-6.10)
[2019-12-13 07:23] LABS: ALT/SGPT 7 U/L (12-78); BILIRUBIN,TOTAL 0.4 MG/DL (0.2-1.0); BLOOD UREA NITROGEN 36 MG/DL (7-18); CALCIUM LEVEL 7.8 MG/DL (8.8-10.2); CARBON DIOXIDE LEVEL 31 MEQ/L (21-32); CHLORIDE LEVEL 101 MEQ/L (98-107); CREATININE FOR GFR 1.21 MG/DL (0.70-1.30); GLOMERULAR FILTRATION RATE > 60.0 (>42); GLUCOSE, FASTING 113 MG/DL (70-100); POTASSIUM SERUM 4.3 MEQ/L (3.5-5.1); SODIUM LEVEL 139 MEQ/L (136-145); TOTAL PROTEIN 5.5 GM/DL (6.4-8.2)
[2019-12-13] MEDS: SIMETHICONE 80 MG CHEW TAB PO SCH ×4 (08:07→20:42)
[2019-12-13] MEDS: MIRALAX *UNIT DOSE* 17GM PACKET PO SCH (08:07)
[2019-12-13] MEDS: ENOXAPARIN 40MG/0.4ML SYRINGE (J1650 PER 10MG) SC SCH (08:08)
[2019-12-13] MEDS: PANTOPRAZOLE 40MG VIAL (C9113 PER 1) IV SCH (08:08)
[2019-12-13] MEDS: SINEMET 25-100 MG TAB PO SCH ×2 (08:08→20:42)
[2019-12-13] MEDS: amLODIPine 5 MG TAB PO SCH ×2 (08:08→20:42)
[2019-12-13] MEDS: LOSARTAN 50MG TABLET PO SCH (08:09)
--- NOTE | 2019-12-13 10:00 | RO ---
DATE OF PROCEDURE: 12/06/2019 into 12/07/2019. PREOPERATIVE DIAGNOSIS: Recurrent small bowel obstruction secondary to adhesions. POSTOPERATIVE DIAGNOSIS: Interloop abscess with small bowel obstruction and extensive adhesions. PROCEDURE PERFORMED: Robotic-assisted laparoscopic lysis of adhesions, laparotomy, lysis of adhesions with drainage of interloop abscess, small bowel resection and anastomosis with repair of seromuscular tears. SURGEON: Dr. Medina ANESTHESIA: General. INDICATIONS FOR THE PROCEDURE: Patient is a 78-year-old man who had presented to [facility] about 2-1/2 weeks earlier with a small bowel obstruction. He had undergone a laparoscopic robotic-assisted lysis of adhesions on 11/23/2019 and he was discharged home on 11/27/2019. He returned on the with a recurrent obstruction, which has not resolved. He is now for a robotic-assisted laparoscopy for release of his bowel obstruction. OPERATIVE PROCEDURE: The patient was brought to the operating room and placed on the table in a supine position. He was placed under general endotracheal anesthesia. A nasogastric tube was already in place. A Amos catheter was inserted. The patient's abdomen was prepped and draped in a sterile fashion. A site was selected in the upper abdomen slightly to the right of the midline for insertion of his initial trocar. 0.25% Marcaine was infiltrated at each of the robotic trocar sites as needed. A Veress needle was inserted and after positive hanging drop test the abdomen was inflated with carbon dioxide gas. The 8 mm port was placed over a 5 mm scope and advanced through the abdominal wall without difficulty. Initial examination showed some still distended loops of small bowel. There was no evidence of trocar of Veress needle injury. There were adhesions identified going down the left side of the abdomen. There were some filmy adhesions lower in the abdomen. There was some open space in the right upper quadrant and a second trocar was placed. A third was placed in the left upper quadrant with care to avoid any bowel in this area. The patient was tilted to a slight Trendelenburg position. The patient cart of the [employer] Xi robot was brought into position and docked to the middle endoscope port. Targeting took place in the lower abdomen and the additional robotic arms were docked. A Force bipolar and cauterizing scissors were inserted. I then moved to the control console to proceed with the operation. Initially, a lysis of adhesions was performed. There were loops of small bowel that were attached to the abdominal wall with some filmy recent inflammatory adhesions. These were broken apart by combination of blunt and sharp dissection. The adhesions along the left side of the abdomen appeared to be old consistent with adhesions that had not been divided during his recent laparoscopic surgery. The dissection proceeded from superior to inferior. The small bowel in the right lower quadrant did not appear distended. There were some quite distended loops of bowel in the left mid and upper abdomen. As dissection proceeded down into the lower abdomen there appeared to be an area of scarring in the left lower quadrant posteriorly. There was a markedly dilated loop that extended into this area. This appeared to be matted to the posterior aspect of the abdomen and to the retroperitoneum. A nondistended loop of small bowel exited from this area returning superiorly. I attempted to work through the adhesions in this area using a combination of sharp dissection with some gentle traction. This loop appeared to be markedly tethered and again, this seemed to represent an old attachment rather than new attachments related to his recent surgery. I did create a small enterotomy in this area while trying to mobilize the bowel. After working for some time to free this without success, I elected to convert to an open procedure. The robotic instruments were therefore removed and the robot was undocked and moved away. A low midline incision was made extending to slightly above the umbilicus. A Comstock retractor was placed. I continued to lyse adhesions involving a markedly distended loop of bowel extending down into this area of marked adhesions. Once this area was free, I could work toward the adherent area from both the decompressed and the distended ends of the bowel. As I worked toward the central point coming posterior to the distal portion of the bowel, I entered a small abscess with release of some thick greenish pus. This was drained and then opened further. Aerobic and anaerobic swabs were obtained, though this was after the purulent fluid had been completely drained. An abscess cavity was identified and after further examination this appeared to lie between the loop of small bowel, which had been matted posteriorly, but also trapped between the retroperitoneum and the superior aspect of the rectum or rectosigmoid region right at the top of the sacral promontory. I could not identify a perforation of the bowel on either side. The adherent loop was freed by further sharp dissection. This segment of bowel included the area where an enterotomy had been identified earlier. I elected to resect a portion of bowel perhaps 20-30 cm in length, including the distal end of the dilated portion with the enterotomy and the markedly scarred proximal portion of the nondilated more distal segment. This was accomplished using a Harmonic scalpel to divide the mesentery. A stapled anastomosis was performed with a linear cutter stapler and a [id number] stapler. The anastomosis was reinforced with some simple sutures of #3-0 Vicryl. I then irrigated the abdomen with copious amounts of sterile saline. I then continued with some additional division of adhesions on the left side of the abdomen freeing all of the dilated proximal small bowel up to the ligament of Treitz. I would note that prior to performing the anastomosis of the small bowel I had allowed the proximal dilated small bowel to drain into a small basin with perhaps 500 mL of semiliquid greenish particulate matter being drained. The abdomen was then again copiously irrigated. Final inspection showed no evidence any bleeding. The anastomosis looked good. Again, there was no evidence of any bowel leak at the area of the abscess at the superior aspect of the rectosigmoid. The irrigation was removed as thoroughly as possible. The peritoneum was closed with a running suture of #1 Vicryl in about the bottom half of the wound. The fascia was then closed with interrupted simple sutures of #1 Vicryl. The skin incisions were all closed with skin bonilla. A bulky bandage was applied. The patient tolerated the procedure well without apparent complication. He was awakened in the operating room, extubated and moved to the recovery room in stable condition. SERENA
[2019-12-13 14:00] VITALS: BP 124/62
--- NOTE | 2019-12-13 17:25 | IPNPDOC ---
Date Seen The patient was seen on 12/13/19. Progress Note SUBJECTIVE: NGT out. Passing gas, but no bowel movement. Ambulating. Denies n/v, fevers, chills, shortness of breath, chest pain. OBJECTIVE: VITAL SIGNS: Please see below. PHYSICAL EXAMINATION: GENERAL: No distress, comfortable in bed HEENT: Normocephalic, atraumatic NECK: Supple CARDIOVASCULAR EXAMINATION: S1, S2, no murmurs RESPIRATORY EXAMINATION: Diminished bases, no wheezing, bibasilar crackles ABDOMINAL EXAMINATION: Soft, diffuse mild tenderness to palpation, distended, hypoactive bowel sounds, NGT in place, abdominal surgical incision with bonilla in place, clean incision without erythema or drainage EXTREMITIES: WWP, no LE edema SKIN: No rash NEUROLOGICAL EXAMINATION: Alert and oriented 3, no focal deficits LABORATORY DATA: Please see below IMAGING: Admission CT abdomen and pelvis consistent with small bowel obstruction 12/03 KUB with persistent SBO 12/06 KUB: Postop changes. There are a few persistent loops of mildly dilated bowel to the left of midline showing mild mural thickening. Bowel gas pattern is improved. 12/08 KUB: 1. Nasogastric tube warrants advancement. 2. Dilated/distended loops of small and large bowel and differential diagnosis includes continued obstruction versus ileus. ASSESSMENT: 78-year-old M with past medical history of Parkinson's disease, hypertension and recurrent small bowel obstruction who recently underwent lysis of adhesions and enterotomy now readmitted for small bowel obstruction s/p laparotomy with partial small bowel resection, lysis of adhesions and drainage of intraloop abscess on 12/[address] Medina. PLAN: 1. Small bowel obstruction post-op day 5 ex lap, bowel resection, lysis of adhesions. SBO resolved with now slow resolving ileus. -NGT out, still passing gas, no BM C/w NPO except ice chips, TPN via PICC, zosyn day 8 since abscess drainage -Encourage ambulation during the day -Gen surgery following 2. Anemia, acute on chronic -No s/s of bleeding, worsening abdominal pain or distension -H/H 8.08/08 from 9.10/09 -F/u CBC in AM, iron studies, occult blood 3. Parkinson's disease. Continue home regimen 4. Hypertension. Continue home losartan and Norvasc. 5.GI px. PPI IV. 6. DVT px. Started on lovenox SC. DISPOSITION: C/w current treatment. Plan is discharge to prior living situation when medically improved. VS, I&O, 24H, Fishbone Vital Signs/I&O Vital Signs Date Time Temp Pulse Resp B/P (MAP) Pulse Ox O2 Delivery O2 Flow Rate FiO2 12/13/19 14:00 97.6 62 16 124/62 (82) 98 12/13/19 06:00 Room Air 12/12/19 10:00 12/09/19 10:00 1.0 I&O- Last 24 Hours up to 6 AM 12/13/19 05:59 Intake Total 1240 ml Output Total 955 ml Balance 285 ml Laboratory Data 24H LABS Laboratory Tests 2 12/12/19 18:01: Bedside Glucose (Misc Panel) 126H 12/12/19 23:34: Bedside Glucose (Misc Panel) 119H 12/13/19 05:16: Bedside Glucose (Misc Panel) 123H 12/13/19 06:26: Nucleated Red Blood Cells % (auto) 0.0, Anion Gap 7L, Glomerular Filtration Rate > 60.0, Calcium Level 7.8L, Total Bilirubin 0.4, Aspartate Amino Transf (AST/SGOT) 20, Alanine Aminotransferase (ALT/SGPT) 7L, Alkaline Phosphatase 71, Total Protein 5.5L, Albumin 2.0L, Albumin/Globulin Ratio 0.6 12/13/19 11:43: Bedside Glucose (Misc Panel) 140H 12/13/19 17:13: Bedside Glucose (Misc Panel) 126H CBC/BMP Laboratory Tests 12/13/19 06:26 Microbiology Microbiology 12/06/19 Gram Stain - Final, Complete 12/06/19 Abscess Culture - Final, Complete Staphylococcus Epidermidis Corynebacterium Species 12/06/19 Anaerobic Culture - Final, Complete 12/05/19 Respiratory Virus Panel (PCR) (PATO) - Final, Complete 12/03/19 Blood Culture - Final, Complete NO GROWTH AFTER 5 DAYS 12/03/19 Blood Culture - Final, Complete NO GROWTH AFTER 5 DAYS 12/03/19 Blood Culture - Final, Complete NO GROWTH AFTER 5 DAYS 12/03/19 Blood Culture - Final, Complete NO GROWTH AFTER 5 DAYS Current Medications Current Medications Medications (Trade) Dose Ordered Sig/Atiya Route PRN Reason Start Time Stop Time Status Last Admin Dose Admin Acetaminophen (Tylenol Tab) 1,000 mg TID PRN PO PAIN / FEVER 12/03/19 06:45 12/03/19 13:12 DC Amino Ac/Electrol/ Dextrose/Calcium 1,000 ml @ 75 mls/hr [id number] IV 12/09/19 18:00 12/10/19 17:59 DC 12/10/19 08:08 Amino Ac/Electrol/ Dextrose/Calcium 2,000 ml @ 60 mls/hr ONCE@1800 IV 12/12/19 18:00 12/13/19 17:59 12/12/19 18:56 Amino Ac/Electrol/ Dextrose/Calcium 2,000 ml @ 60 mls/hr ONCE@1800 IV 12/13/19 18:00 12/14/19 17:59 Amitriptyline HCl (Elavil) 50 mg QHS PO 12/03/19 21:00 12/12/19 20:18 Amlodipine Besylate (Norvasc) 5 mg BID PO 12/03/19 09:00 12/13/19 08:08 Carbidopa/Levodopa (Sinemet 25/100) 1 tab BID PO 12/03/19 09:00 12/13/19 08:08 Ciprofloxacin 400 mg/IV Miscellaneous Supplies 200 ml @ 200 mls/hr BID IV 12/03/19 09:00 12/04/19 16:40 DC 12/04/19 10:05 Enoxaparin Sodium (Lovenox) 40 mg DAILY SC 12/03/19 09:00 12/05/19 23:12 DC 12/05/19 08:21 Enoxaparin Sodium (Lovenox) 40 mg DAILY SC 12/12/19 09:00 12/13/19 08:08 Fat Emulsion Intravenous 500 ml @ 20 mls/hr ONCE@1800 IV 12/09/19 18:00 12/10/19 17:59 DC 12/09/19 17:39 Fat Emulsion Intravenous 500 ml @ 20 mls/hr ONCE@1800 IV 12/10/19 18:00 12/11/19 17:59 DC 12/10/19 18:44 Fat Emulsion Intravenous 500 ml @ 20 mls/hr ONCE@1800 IV 12/11/19 18:00 12/12/19 17:59 DC 12/11/19 17:46 Fat Emulsion Intravenous 500 ml @ 20 mls/hr ONCE@1800 IV 12/12/19 18:00 12/13/19 17:59 12/12/19 18:56 Fat Emulsion Intravenous 500 ml @ 20 mls/hr ONCE@1800 IV 12/13/19 18:00 12/14/19 17:59 Fentanyl Citrate (Sublimaze) 25 mcg Q5MP PRN IV PAIN LEVEL 5-10 12/07/19 00:45 12/07/19 02:00 DC Finasteride (Proscar) 5 mg DAILY PO 12/03/19 09:00 12/03/19 13:19 DC 12/03/19 09:58 Heparin Sodium (Heparin (Flush)) 200 units ASDIRECTED PRN IV SEE LABEL COMMENTS 12/13/19 16:15 Heparin Sodium (Heparin (Flush)) 200 units PICC IV 12/13/19 18:00 Home Med (Med Rec Complete!) ASDIRECTED XX 12/03/19 06:15 12/03/19 06:08 DC Insulin Human Lispro (HumaLOG INSULIN) See Protocol Table Q6H SC 12/12/19 18:00 12/13/19 12:01 DC 12/13/19 06:05 Insulin Human Lispro (HumaLOG INSULIN) See Protocol Table Q6H SC 12/13/19 18:00 12/14/19 12:01 Ketorolac Tromethamine (ToRADol) 15 mg Q6H IV 12/07/19 02:00 12/12/19 01:59 DC 12/11/19 20:24 Lactated Ringer's 1,000 ml @ 100 mls/hr Q10H IV 12/07/19 00:45 12/07/19 02:00 DC Lorazepam (Ativan) 1 mg STAT STAT PO 12/10/19 00:34 12/10/19 00:36 DC 12/10/19 00:43 Losartan Potassium (Cozaar) 100 mg DAILY PO 12/03/19 09:00 12/13/19 08:09 Metoclopramide HCl (REGLAN INJection) 10 mg Q6HP PRN IV NAUSEA OR VOMITING 12/05/19 10:00 12/05/19 10:03 Metoclopramide HCl (REGLAN INJection) 10 mg Q6HP PRN IV NAUSEA OR VOMITING 6/26/20 00:45 12/07/19 02:00 DC Metronidazole 500 mg/IV Miscellaneous Supplies 100 ml @ 100 mls/hr Q8H IV 12/03/19 08:00 12/04/19 16:40 DC 12/04/19 16:18 Morphine Sulfate (Morphine Sulfate Inj) 2 mg Q2H PRN IV MODERATE/SEVERE PAIN (PS 5-10) 12/07/19 01:00 12/07/19 18:28 Morphine Sulfate (Morphine Sulfate Inj) 2 mg Q4H PRN IV MODERATE PAIN (PS 5-7) 12/03/19 13:15 12/07/19 01:02 DC 12/04/19 19:25 Morphine Sulfate (Morphine Sulfate Inj) 4 mg Q30M PRN IV SEVERE PAIN (PS 8-10) 12/03/19 03:30 12/03/19 13:12 DC 12/03/19 03:36 Multivitamins 10 ml/Chromium/ Copper/Manganese/ Seleni/Zn 1 ml/ Amino Ac/Electrol/ Dextrose/Calcium 2,011 ml @ 75 mls/hr ONCE@1800 IV 12/10/19 18:00 12/11/19 17:59 DC 12/10/19 18:44 Ondansetron HCl (ZOFRAN INJection) 4 mg Q4HP PRN IV NAUSEA OR VOMITING 12/07/19 00:45 12/07/19 02:00 DC Ondansetron HCl (ZOFRAN INJection) 4 mg Q6HP PRN IV NAUSEA OR VOMITING 12/05/19 08:15 12/05/19 08:21 Oxycodone/ Acetaminophen (Percocet 5mg/ 325mg Tablet) 1 tab Q4HP PRN PO MILD/MODERATE PAIN (PS 1-7) 12/12/19 13:30 12/13/19 00:05 Pantoprazole Sodium (Protonix) 40 mg DAILY IV 12/12/19 09:00 12/13/19 08:08 Piperacillin Sod/ Tazobactam Sod 3.375 gm/Dextrose 50 ml @ 50 mls/hr Q6H IV 12/07/19 02:00 12/13/19 13:56 Polyethylene Glycol (Miralax) 1 pkt DAILY PO 12/12/19 09:00 12/13/19 08:07 Potassium Chloride 10 meq/ IV Miscellaneous Supplies 100 ml @ 100 mls/hr Q1H IV 12/09/19 10:00 12/09/19 13:59 DC 12/09/19 15:17 Potassium Chloride 10 meq/ IV Miscellaneous Supplies 100 ml @ 100 mls/hr Q1H IV 12/10/19 17:00 12/10/19 18:59 DC 12/10/19 19:32 Potassium Chloride 22.2 meq/ Amino Ac/Electrol/ Dextrose/Calcium 2,011.1 ml @ 75 mls/hr ONCE@1800 IV 12/11/19 18:00 12/12/19 17:59 DC 12/11/19 17:46 Potassium Chloride/Dextrose/ Sod Cl 1,000 ml @ 80 mls/hr [id number] IV 12/09/19 14:00 12/09/19 09:56 DC Rosuvastatin Calcium (Crestor) 20 mg QHS PO 12/03/19 21:00 12/03/19 13:12 DC Simethicone (Mylicon) 120 mg QID PO 12/09/19 09:00 12/13/19 13:56 Sodium Chloride 1,000 ml @ 80 mls/hr [id number] IV 12/03/19 06:45 12/09/19 08:51 DC 12/09/19 00:23 Sodium Chloride (Saline Lock Flush) 10 ml ASDIRECTED PRN IV SEE LABEL COMMENTS 12/13/19 16:15 Sodium Chloride (Saline Lock Flush) 10 ml PICC IV 12/13/19 18:00 Tramadol HCl (Ultram) 50 mg TID PO 12/03/19 09:00 12/03/19 13:12 DC 12/03/19 09:57 Allergies Coded Allergies: No Known Allergies (Unverified , 09/29/18) Rhoda Tucker MD Dec 13, 2019 17:25
[2019-12-13] MEDS: SODIUM CHLORIDE 0.9% INJ 10 ML SYR IV SCH (17:49)
[2019-12-13] MEDS ORDERED: AMINO AC/ELECTROLYTE/DEX/CALC 2,000 ML IV SCH (18:00)
[2019-12-13] MEDS ORDERED: FAT EMULSION IV 20% 500 ML IV SCH (18:00)
[2019-12-13 20:01] VITALS: BP 94/47
[2019-12-13] MEDS: AMITRIPTYLINE 50 MG TAB PO SCH (20:42)
[2019-12-13 22:00] VITALS: BP 106/56
[2019-12-14] VITALS (7 sets, daily range): BP systolic 84–128; BP diastolic 44–64
[2019-12-14] MEDS: HumaLOG INSULIN (NovoLOG) PER UNIT SC SCH ×3 (00:19→12:40)
[2019-12-14] MEDS: PERCOCET 5MG/325MG TAB PO PRN (00:20)
[2019-12-14] MEDS: PIPERACILLIN/TAZOBACTAM SOD 3.375 GM in D5W MINI-BAG PLUS 50 ML IV SCH ×2 (02:24→07:44)
[2019-12-14] MEDS: SODIUM CHLORIDE 0.9% INJ 10 ML SYR IV SCH ×2 (06:42→18:52)
[2019-12-14] MEDS: LOSARTAN 50MG TABLET PO SCH (07:46)
[2019-12-14] MEDS: SINEMET 25-100 MG TAB PO SCH ×2 (07:46→20:37)
[2019-12-14] MEDS: ENOXAPARIN 40MG/0.4ML SYRINGE (J1650 PER 10MG) SC SCH (07:47)
[2019-12-14] MEDS: amLODIPine 5 MG TAB PO SCH ×2 (07:47→20:37)
[2019-12-14] MEDS: PANTOPRAZOLE 40MG VIAL (C9113 PER 1) IV SCH (07:47)
[2019-12-14 08:34] LABS: HEMATOCRIT 25.1 % (42.0-52.0); HEMOGLOBIN 7.7 g/dl (13.5-17.5); MEAN CORPUSCULAR HEMOGLOBIN 31.6 pg (27.0-33.0); MEAN CORPUSCULAR HGB CONC 30.7 g/dl (32.0-36.5); MEAN CORPUSCULAR VOLUME 102.9 fl (80.0-96.0); PLATELET COUNT, AUTOMATED 227 10^3/uL (150-450); RED BLOOD COUNT 2.44 10^6/uL (4.30-6.10); WHITE BLOOD COUNT 6.8 10^3/uL (4.0-10.0)
--- NOTE | 2019-12-14 08:48 | REP ---
Clinical: Obstruction. Technique: Single supine view of the abdomen and pelvis. Comparison: 12/09/2019. Findings: Surgical skin bonilla over the left hemipelvis and overlying the mid abdomen are again identified. The bowel gas pattern demonstrates distended loops of small bowel and presumed large bowel essentially unchanged from prior examination. Differential diagnosis includes ileus and obstruction. Skeletal structures are stable including Fu rods. Atherosclerotic changes to the aorta again noted. Impression: No change in bowel gas pattern. Differential diagnosis again includes ileus and obstruction. Electronically Signed by Daquan Ruiz MD 12/14/2019 08:39 A
[2019-12-14 09:00] LABS: BILIRUBIN,TOTAL 0.4 MG/DL (0.2-1.0); CALCIUM LEVEL 7.9 MG/DL (8.8-10.2); CHOLESTEROL RISK RATIO 7.523 (<5); CREATININE FOR GFR 1.33 MG/DL (0.70-1.30); GLOMERULAR FILTRATION RATE 55.4 (>42); PERCENT SATURATION 13.8 % (19.7-50.0); POTASSIUM SERUM 4.3 MEQ/L (3.5-5.1); TOTAL PROTEIN 5.6 GM/DL (6.4-8.2)
--- NOTE | 2019-12-14 12:22 | IPN ---
DATE: 12/14/2019 HISTORY: The patient is now approximately a week postoperative from his laparoscopy and laparotomy with drainage of an interloop abscess, small bowel resection and anastomosis with lysis of adhesions for a recurrent obstruction. His bowels have been slow to recover. He does report he is passing some gas, though he remains quite distended. He has not had a bowel movement as of yet, but his bowels were quite empty at the conclusion of his most recent procedure. VITAL SIGNS: Show that he has been afebrile over the past 24 hours with a pulse in the 50s and 60s. His blood pressure has been good though, his systolic pressures had dipped into the mid 90s last evening. INTAKE AND OUTPUT: Show that yesterday he had 910 mL oral recorded, but his TPN intake is not recorded. It should amount to approximately 2 liters. He does have 1540 mL of urine output recorded for yesterday. PHYSICAL EXAMINATION: The patient is alert and seems grossly oriented. He is not complaining of any pain at this time. Heart exam shows a regular rhythm. The abdomen is distended, but softly so. He has a few bowel sounds present. Palpation reveals the abdomen is full and he has some mild tenderness, slightly worse on the left than the right, consistent with distended loops of bowel. LABORATORY STUDIES: Show white count of 7, hemoglobin 8, hematocrit 25 and a platelet count of 227,000. Chemistry profile shows a sodium of 139, potassium 4.3, chloride 103, CO2 of 30, BUN of 35, creatinine 1.3 and a glucose of 133. His liver function tests are normal. Total protein is 5.6 with an albumin of 2.0. A KUB was obtained this morning which shows air-filled loops of bowel filling the abdomen. There is no evident free air. There does appear to be air in at least the left side of the colon and also some air in the rectum. IMPRESSION: The patient still has some significant abdominal distention. He has had no nausea or vomiting. He does report that he is passing some gas. I advanced him from clear liquids to full liquids just for a wider variety of taste options. PLAN: I would continue him on the full liquids for now. He should be encouraged to increase his activity and be out of bed as tolerated in hopes that this will stimulate bowel function. I would not advance him to a regular diet until he has started showing improved bowel function with decompression of the bowel. MTDD
--- NOTE | 2019-12-14 16:43 | IPNPDOC ---
Date Seen The patient was seen on 12/14/19. Progress Note SUBJECTIVE: KUB done this AM showed unchanged gas pattern with possible ileus still there; however, he later had 3 BMs. Tolerating diet. Ambulating. Denies n/v, fevers, chills, shortness of breath, chest pain. OBJECTIVE: VITAL SIGNS: Please see below. PHYSICAL EXAMINATION: GENERAL: No distress, comfortable in bed HEENT: Normocephalic, atraumatic NECK: Supple CARDIOVASCULAR EXAMINATION: S1, S2, no murmurs RESPIRATORY EXAMINATION: Diminished bases, no wheezing, bibasilar crackles ABDOMINAL EXAMINATION: Soft, diffuse mild tenderness to palpation, hypoactive bowel sounds, abdominal surgical incision with bonilla in place, clean incision without erythema or drainage EXTREMITIES: no LE edema SKIN: No rash NEUROLOGICAL EXAMINATION: Alert and oriented 3, no focal deficits LABORATORY DATA: Please see below IMAGING: Admission CT abdomen and pelvis consistent with small bowel obstruction 12/03 KUB with persistent SBO 12/06 KUB: Postop changes. There are a few persistent loops of mildly dilated bowel to the left of midline showing mild mural thickening. Bowel gas pattern is improved. 12/08 KUB: 1. Nasogastric tube warrants advancement. 2. Dilated/distended loops of small and large bowel and differential diagnosis includes continued obstruction versus ileus. 12/14/19 KUB: No change in bowel gas pattern. Differential diagnosis again includes ileus and obstruction. ASSESSMENT: 78-year-old M with past medical history of Parkinson's disease, hypertension and recurrent small bowel obstruction who recently underwent lysis of adhesions and enterotomy now readmitted for small bowel obstruction s/p laparotomy with partial small bowel resection, lysis of adhesions and drainage of intraloop abscess on 12/[address] Medina. PLAN: 1. Ileus, resolved today. Post op day 6 for ex lap, bowel resection, lysis of adhesions. SBO resolved with now -3 BM since AM C/w current diet, TPN via PICC, zosyn day 9 since abscess drainage -Encourage ambulation during the day -Gen surgery following 2. Anemia, acute on chronic iron deficiency anemia -No s/s of bleeding, worsening abdominal pain or distension -H/H worsened to 7.01/04 -Discussed with surgery, not concerned for surgical reason. -Iron low, would benefit from iron supplement when bowel are moving more regularly. Also would benefit from venofer IV. -F/u CBC in AM 3. Parkinson's disease. Continue home regimen 4. Hypertension. Continue home losartan and Norvasc. 5.GI px. PPI IV. 6. DVT px. lovenox SC. DISPOSITION: C/w current treatment. Plan is discharge to prior living situation when medically improved. VS, I&O, 24H, Fishbone Vital Signs/I&O Vital Signs Date Time Temp Pulse Resp B/P (MAP) Pulse Ox O2 Delivery O2 Flow Rate FiO2 12/14/19 14:00 97.5 67 20 103/44 (63) 93 Room Air 12/12/19 10:00 12/09/19 10:00 1.0 I&O- Last 24 Hours up to 6 AM 12/14/19 06:00 Intake Total 1090 ml Output Total 2000 ml Balance -910 ml Laboratory Data 24H LABS Laboratory Tests 2 12/13/19 17:13: Bedside Glucose (Misc Panel) 126H 12/14/19 00:06: Bedside Glucose (Misc Panel) 128H 12/14/19 06:43: Bedside Glucose (Misc Panel) 128H 12/14/19 07:54: Nucleated Red Blood Cells % (auto) 0.0, Anion Gap 6L, Glomerular Filtration Rate 55.4, Calcium Level 7.9L, Iron Level 31L, Total Iron Binding Capacity 225L, Transferrin % Saturation 13.8L, Ferritin 197, Total Bilirubin 0.4, Aspartate Amino Transf (AST/SGOT) 25, Alanine Aminotransferase (ALT/SGPT) 8L, Alkaline Phosphatase 79, Total Protein 5.6L, Albumin 2.0L, Albumin/Globulin Ratio 0.6, Triglycerides Level 128, Total Cholesterol 158, LDL Cholesterol 111H, Non-HDL Cholesterol (LDL + VLDL) 137, Total HDL Cholesterol 21L, Cholesterol/HDL Ratio 7.523H 12/14/19 11:49: Bedside Glucose (Misc Panel) 169H CBC/BMP Laboratory Tests 12/14/19 07:54 Microbiology Microbiology 12/06/19 Gram Stain - Final, Complete 12/06/19 Abscess Culture - Final, Complete Staphylococcus Epidermidis Corynebacterium Species 12/06/19 Anaerobic Culture - Final, Complete 12/05/19 Respiratory Virus Panel (PCR) (PATO) - Final, Complete Current Medications Current Medications Medications (Trade) Dose Ordered Sig/Atiya Route PRN Reason Start Time Stop Time Status Last Admin Dose Admin Acetaminophen (Tylenol Tab) 1,000 mg TID PRN PO PAIN / FEVER 12/03/19 06:45 12/03/19 13:12 DC Amino Ac/Electrol/ Dextrose/Calcium 1,000 ml @ 75 mls/hr [id number] IV 12/09/19 18:00 12/10/19 17:59 DC 12/10/19 08:08 Amino Ac/Electrol/ Dextrose/Calcium 2,000 ml @ 60 mls/hr ONCE@1800 IV 12/12/19 18:00 12/13/19 17:59 DC 12/12/19 18:56 Amino Ac/Electrol/ Dextrose/Calcium 2,000 ml @ 60 mls/hr ONCE@1800 IV 12/13/19 18:00 12/14/19 17:59 12/13/19 17:49 Amitriptyline HCl (Elavil) 50 mg QHS PO 12/03/19 21:00 12/13/19 20:42 Amlodipine Besylate (Norvasc) 5 mg BID PO 12/03/19 09:00 12/13/19 08:08 Carbidopa/Levodopa (Sinemet 25/100) 1 tab BID PO 12/03/19 09:00 12/14/19 07:46 Ciprofloxacin 400 mg/IV Miscellaneous Supplies 200 ml @ 200 mls/hr BID IV 12/03/19 09:00 12/04/19 16:40 DC 12/04/19 10:05 Enoxaparin Sodium (Lovenox) 40 mg DAILY SC 12/03/19 09:00 12/05/19 23:12 DC 12/05/19 08:21 Enoxaparin Sodium (Lovenox) 40 mg DAILY SC 12/12/19 09:00 12/14/19 07:47 Fat Emulsion Intravenous 500 ml @ 20 mls/hr ONCE@1800 IV 12/09/19 18:00 12/10/19 17:59 DC 12/09/19 17:39 Fat Emulsion Intravenous 500 ml @ 20 mls/hr ONCE@1800 IV 12/10/19 18:00 12/11/19 17:59 DC 12/10/19 18:44 Fat Emulsion Intravenous 500 ml @ 20 mls/hr ONCE@1800 IV 12/11/19 18:00 12/12/19 17:59 DC 12/11/19 17:46 Fat Emulsion Intravenous 500 ml @ 20 mls/hr ONCE@1800 IV 12/12/19 18:00 12/13/19 17:59 DC 12/12/19 18:56 Fat Emulsion Intravenous 500 ml @ 20 mls/hr ONCE@1800 IV 12/13/19 18:00 12/14/19 17:59 12/13/19 17:50 Fentanyl Citrate (Sublimaze) 25 mcg Q5MP PRN IV PAIN LEVEL 5-10 12/07/19 00:45 12/07/19 02:00 DC Finasteride (Proscar) 5 mg DAILY PO 12/03/19 09:00 12/03/19 13:19 DC 12/03/19 09:58 Heparin Sodium (Heparin (Flush)) 200 units ASDIRECTED PRN IV SEE LABEL COMMENTS 12/13/19 16:15 Heparin Sodium (Heparin (Flush)) 200 units PICC IV 12/13/19 18:00 12/14/19 06:43 Home Med (Med Rec Complete!) ASDIRECTED XX 12/03/19 06:15 12/03/19 06:08 DC Insulin Human Lispro (HumaLOG INSULIN) See Protocol Table Q6H SC 12/12/19 18:00 12/13/19 12:01 DC 12/13/19 06:05 Insulin Human Lispro (HumaLOG INSULIN) See Protocol Table Q6H TX 12/13/19 18:00 12/14/19 12:01 DC 12/14/19 12:40 Ketorolac Tromethamine (ToRADol) 15 mg Q6H IV 12/07/19 02:00 12/12/19 01:59 DC 12/11/19 20:24 Lactated Ringer's 1,000 ml @ 100 mls/hr Q10H IV 12/07/19 00:45 12/07/19 02:00 DC Lorazepam (Ativan) 1 mg STAT STAT PO 12/10/19 00:34 12/10/19 00:36 DC 12/10/19 00:43 Losartan Potassium (Cozaar) 100 mg DAILY PO 12/03/19 09:00 12/13/19 08:09 Metoclopramide HCl (REGLAN INJection) 10 mg Q6HP PRN IV NAUSEA OR VOMITING 12/05/19 10:00 12/14/19 00:57 DC 12/05/19 10:03 Metoclopramide HCl (REGLAN INJection) 10 mg Q6HP PRN IV NAUSEA OR VOMITING 12/07/19 00:45 12/07/19 02:00 DC Metronidazole 500 mg/IV Miscellaneous Supplies 100 ml @ 100 mls/hr Q8H IV 12/03/19 08:00 12/04/19 16:40 DC 12/04/19 16:18 Morphine Sulfate (Morphine Sulfate Inj) 2 mg Q2H PRN IV MODERATE/SEVERE PAIN (PS 5-10) 12/07/19 01:00 12/14/19 00:57 DC 12/07/19 18:28 Morphine Sulfate (Morphine Sulfate Inj) 2 mg Q4H PRN IV MODERATE PAIN (PS 5-7) 12/03/19 13:15 12/07/19 01:02 DC 12/04/19 19:25 Morphine Sulfate (Morphine Sulfate Inj) 4 mg Q30M PRN IV SEVERE PAIN (PS 8-10) 12/03/19 03:30 12/03/19 13:12 DC 12/03/19 03:36 Multivitamins 10 ml/Chromium/ Copper/Manganese/ Seleni/Zn 1 ml/ Amino Ac/Electrol/ Dextrose/Calcium 2,011 ml @ 75 mls/hr ONCE@1800 IV 12/10/19 18:00 12/11/19 17:59 DC 12/10/19 18:44 Ondansetron HCl (ZOFRAN INJection) 4 mg Q4HP PRN IV NAUSEA OR VOMITING 12/07/19 00:45 12/07/19 02:00 DC Ondansetron HCl (ZOFRAN INJection) 4 mg Q6HP PRN IV NAUSEA OR VOMITING 12/05/19 08:15 12/05/19 08:21 Oxycodone/ Acetaminophen (Percocet 5mg/ 325mg Tablet) 1 tab Q4HP PRN PO MILD/MODERATE PAIN (PS 1-7) 12/12/19 13:30 12/14/19 00:20 Pantoprazole Sodium (Protonix) 40 mg DAILY IV 12/12/19 09:00 12/14/19 07:47 Piperacillin Sod/ Tazobactam Sod 3.375 gm/Dextrose 50 ml @ 50 mls/hr Q6H IV 12/07/19 02:00 12/14/19 07:48 DC 12/14/19 07:44 Polyethylene Glycol (Miralax) 1 pkt DAILY PO 12/12/19 09:00 12/14/19 00:57 DC 12/13/19 08:07 Potassium Chloride 10 meq/ IV Miscellaneous Supplies 100 ml @ 100 mls/hr Q1H IV 12/09/19 10:00 12/09/19 13:59 DC 12/09/19 15:17 Potassium Chloride 10 meq/ IV Miscellaneous Supplies 100 ml @ 100 mls/hr Q1H IV 12/10/19 17:00 12/10/19 18:59 DC 12/10/19 19:32 Potassium Chloride 22.2 meq/ Amino Ac/Electrol/ Dextrose/Calcium 2,011.1 ml @ 75 mls/hr ONCE@1800 IV 12/11/19 18:00 12/12/19 17:59 DC 12/11/19 17:46 Potassium Chloride/Dextrose/ Sod Cl 1,000 ml @ 80 mls/hr [id number] IV 12/09/19 14:00 12/09/19 09:56 DC Rosuvastatin Calcium (Crestor) 20 mg QHS PO 12/03/19 21:00 12/03/19 13:12 DC Simethicone (Mylicon) 120 mg QID PO 12/09/19 09:00 12/14/19 00:57 DC 12/13/19 20:42 Sodium Chloride 1,000 ml @ 80 mls/hr [id number] IV 12/03/19 06:45 12/09/19 08:51 DC 12/09/19 00:23 Sodium Chloride (Saline Lock Flush) 10 ml ASDIRECTED PRN IV SEE LABEL COMMENTS 12/13/19 16:15 Sodium Chloride (Saline Lock Flush) 10 ml PICC IV 12/13/19 18:00 12/14/19 06:42 Tramadol HCl (Ultram) 50 mg TID PO 12/03/19 09:00 12/03/19 13:12 DC 12/03/19 09:57 Allergies Coded Allergies: No Known Allergies (Unverified , 09/29/18) Rhoda Tucker MD Dec 14, 2019 16:43
[2019-12-14] MEDS: NS 1,000 ML IV SCH (18:51)
[2019-12-14] MEDS: AMITRIPTYLINE 50 MG TAB PO SCH (20:35)
[2019-12-15] MEDS: NS 1,000 ML IV SCH ×2 (04:02→14:01)
[2019-12-15] MEDS: PERCOCET 5MG/325MG TAB PO PRN ×3 (04:29→21:24)
[2019-12-15] MEDS: SODIUM CHLORIDE 0.9% INJ 10 ML SYR IV SCH ×2 (05:52→16:31)
[2019-12-15 06:00] VITALS: BP 104/52
[2019-12-15 07:03] LABS: HEMOGLOBIN 7.4 g/dl (13.5-17.5); MEAN CORPUSCULAR HEMOGLOBIN 31.9 pg (27.0-33.0); MEAN CORPUSCULAR HGB CONC 30.8 g/dl (32.0-36.5); MEAN CORPUSCULAR VOLUME 103.4 fl (80.0-96.0); PLATELET COUNT, AUTOMATED 215 10^3/uL (150-450); RED BLOOD COUNT 2.32 10^6/uL (4.30-6.10); WHITE BLOOD COUNT 6.4 10^3/uL (4.0-10.0)
[2019-12-15 07:40] LABS: ALBUMIN 1.9 GM/DL (3.2-5.2); ALT/SGPT 7 U/L (12-78); BILIRUBIN,TOTAL 0.3 MG/DL (0.2-1.0); BLOOD UREA NITROGEN 25 MG/DL (7-18); CALCIUM LEVEL 7.8 MG/DL (8.8-10.2); CARBON DIOXIDE LEVEL 28 MEQ/L (21-32); CHLORIDE LEVEL 110 MEQ/L (98-107); CREATININE FOR GFR 1.05 MG/DL (0.70-1.30); GLOMERULAR FILTRATION RATE > 60.0 (>42); GLUCOSE, FASTING 92 MG/DL (70-100); POTASSIUM SERUM 5.2 MEQ/L (3.5-5.1); SODIUM LEVEL 142 MEQ/L (136-145); TOTAL PROTEIN 5.2 GM/DL (6.4-8.2)
[2019-12-15] MEDS: SINEMET 25-100 MG TAB PO SCH ×2 (08:31→21:23)
[2019-12-15] MEDS: ENOXAPARIN 40MG/0.4ML SYRINGE (J1650 PER 10MG) SC SCH (08:32)
[2019-12-15] MEDS: amLODIPine 5 MG TAB PO SCH ×2 (08:32→21:25)
[2019-12-15] MEDS: PANTOPRAZOLE 40MG VIAL (C9113 PER 1) IV SCH (08:32)
[2019-12-15] MEDS: LOSARTAN 50MG TABLET PO SCH (08:33)
--- NOTE | 2019-12-15 08:36 | IPNPDOC ---
Text Note Date of Service The patient was seen on 12/15/19. NOTE No acute events overnight. He is tolerating diet and had multiple small BMs. No complaints this am. Denies nausea, emesis, or fevers. Pain is controlled. VSSAF NAD abd - soft, nt, nd A) 79y/o male s/p ex lap with SBR P) reg diet ambulate PT OT stable for d/c from surgical standpoint. Kyle Courtney DO VS,Eduard, I+O VS, Eduard, I+O Laboratory Tests 12/15/19 06:51 Vital Signs Date Time Temp Pulse Resp B/P (MAP) Pulse Ox O2 Delivery O2 Flow Rate FiO2 12/15/19 08:32 102/50 12/15/19 06:00 97.5 75 18 97 Room Air 12/12/19 10:00 12/09/19 10:00 1.0 I&O- Last 24 Hours up to 6 AM 12/15/19 06:00 Intake Total 2770 ml Output Total 200 ml Balance 2570 ml DEANDRA COURTNEY DO Dec 15, 2019 08:36
[2019-12-15] MEDS ORDERED: IRON SUCROSE 100MG 5ML VIAL (J1756 PER 1MG) IV SCH (09:00)
[2019-12-15 10:35] VITALS: BP 122/62
[2019-12-15] MEDS: IRON SUCROSE 100 MG in NS 100 ML OVER 1 HR IV SCH (10:38)
[2019-12-15 11:51] VITALS: BP 112/56
--- NOTE | 2019-12-15 14:15 | IPNPDOC ---
Date Seen The patient was seen on 12/15/19. Progress Note SUBJECTIVE: Tolerating advanced diet well, several bowel movements since 12/14/19. TPN stopped, IVFs stopped with Cr normalized this AM. C/w PT/OT and ambulating during day. Denies n/v, fevers, chills, shortness of breath, chest pain. OBJECTIVE: VITAL SIGNS: Please see below. PHYSICAL EXAMINATION: GENERAL: No distress, comfortable in bed HEENT: Normocephalic, atraumatic NECK: Supple CARDIOVASCULAR EXAMINATION: S1, S2, no murmurs RESPIRATORY EXAMINATION: Diminished bases, no wheezing, bibasilar crackles ABDOMINAL EXAMINATION: Soft, diffuse mild tenderness to palpation, hypoactive bowel sounds, abdominal surgical incision with bonilla in place, clean incisions without erythema or drainage EXTREMITIES: no LE edema SKIN: No rash NEUROLOGICAL EXAMINATION: Alert and oriented 3, no focal deficits LABORATORY DATA: Please see below IMAGING: Admission CT abdomen and pelvis consistent with small bowel obstruction 12/03 KUB with persistent SBO 12/06 KUB: Postop changes. There are a few persistent loops of mildly dilated bowel to the left of midline showing mild mural thickening. Bowel gas pattern is improved. 12/08 KUB: 1. Nasogastric tube warrants advancement. 2. Dilated/distended loops of small and large bowel and differential diagnosis includes continued obstruction versus ileus. 12/14/19 KUB: No change in bowel gas pattern. Differential diagnosis again includes ileus and obstruction. ASSESSMENT: 78-year-old M with past medical history of Parkinson's disease, hypertension and recurrent small bowel obstruction who recently underwent lysis of adhesions and enterotomy now readmitted for small bowel obstruction s/p laparotomy with partial small bowel resection, lysis of adhesions and drainage of intraloop abscess on 12/[address] Medina. PLAN: 1.Anemia, acute on chronic iron deficiency anemia. Cannot r/o dilutional effect also with fluids, TPN. Low suspicion for acute GI bleed -Occult blood pos (recent bowel surgery so expected) but no s/s of bleeding, worsening abdominal pain or distension -H/H worsened to 7.4/24, asymptomatic -Discussed with surgery, not concerned for a worsened GI bleed at this time -Iron low, would benefit from iron supplement when bowel are moving more regularly. -IV venofer starting today then will need to continue supplemental ferrous sulfate PO BID. -F/u CBC in AM -Goal to transfuse <7 Hgb 2. Ileus, resolved. Post op day 7 for ex lap, bowel resection, lysis of adhesions. Prior SBO. -2 BM since AM C/w current diet, zosyn day 10 since abscess drainage (stop after today) -Encourage ambulation during the day -Gen surgery following 3. Acute kidney injury likely prerenal- Resolved -Cr wnl this AM -Stopped IVFs. -Avoid nephrotoxic medications -F/u AM labs. 4. Parkinson's disease. Continue home regimen 5. Hypertension. Continue home losartan and Norvasc. 6.GI px. PPI PO. 7. DVT px. Lovenox SC. DISPOSITION: C/w current treatment. Plan is discharge to home with o/p PT services when medically improved. VS, I&O, 24H, Fishbone Vital Signs/I&O Vital Signs Date Time Temp Pulse Resp B/P (MAP) Pulse Ox O2 Delivery O2 Flow Rate FiO2 12/15/19 11:51 97.8 65 17 112/56 (74) 12/15/19 10:35 97 Room Air 12/12/19 10:00 12/09/19 10:00 1.0 I&O- Last 24 Hours up to 6 AM 12/15/19 06:00 Intake Total 2770 ml Output Total 200 ml Balance 2570 ml Laboratory Data 24H LABS Laboratory Tests 2 12/15/19 06:51: Nucleated Red Blood Cells % (auto) 0.0, Anion Gap 4L, Glomerular Filtration Rate > 60.0, Calcium Level 7.8L, Total Bilirubin 0.3, Aspartate Amino Transf (AST/SGOT) 27, Alanine Aminotransferase (ALT/SGPT) 7L, Alkaline Phosphatase 74, Total Protein 5.2L, Albumin 1.9L, Albumin/Globulin Ratio 0.6 CBC/BMP Laboratory Tests 12/15/19 06:51 Microbiology Microbiology 12/15/19 Stool Occult Blood (PATO) - Final, Complete 12/06/19 Gram Stain - Final, Complete 12/06/19 Abscess Culture - Final, Complete Staphylococcus Epidermidis Corynebacterium Species 12/06/19 Anaerobic Culture - Final, Complete 12/05/19 Respiratory Virus Panel (PCR) (PATO) - Final, Complete Current Medications Current Medications Medications (Trade) Dose Ordered Sig/Atiya Route PRN Reason Start Time Stop Time Status Last Admin Dose Admin Acetaminophen (Tylenol Tab) 1,000 mg TID PRN PO PAIN / FEVER 12/03/19 06:45 12/03/19 13:12 DC Amino Ac/Electrol/ Dextrose/Calcium 1,000 ml @ 75 mls/hr [id number] IV 12/09/19 18:00 12/10/19 17:59 DC 12/10/19 08:08 Amino Ac/Electrol/ Dextrose/Calcium 2,000 ml @ 60 mls/hr ONCE@1800 IV 12/12/19 18:00 12/13/19 17:59 DC 12/12/19 18:56 Amino Ac/Electrol/ Dextrose/Calcium 2,000 ml @ 60 mls/hr ONCE@1800 IV 12/13/19 18:00 12/14/19 17:59 DC 12/13/19 17:49 Amitriptyline HCl (Elavil) 50 mg QHS PO 12/03/19 21:00 12/14/19 20:35 Amlodipine Besylate (Norvasc) 5 mg BID PO 12/03/19 09:00 12/14/19 20:37 Carbidopa/Levodopa (Sinemet 25/100) 1 tab BID PO 12/03/19 09:00 12/15/19 08:31 Ciprofloxacin 400 mg/IV Miscellaneous Supplies 200 ml @ 200 mls/hr BID IV 12/03/19 09:00 12/04/19 16:40 DC 12/04/19 10:05 Enoxaparin Sodium (Lovenox) 40 mg DAILY SC 12/03/19 09:00 12/05/19 23:12 DC 12/05/19 08:21 Enoxaparin Sodium (Lovenox) 40 mg DAILY SC 12/12/19 09:00 12/15/19 08:32 Fat Emulsion Intravenous 500 ml @ 20 mls/hr ONCE@1800 IV 12/09/19 18:00 12/10/19 17:59 DC 12/09/19 17:39 Fat Emulsion Intravenous 500 ml @ 20 mls/hr ONCE@1800 IV 12/10/19 18:00 12/11/19 17:59 DC 12/10/19 18:44 Fat Emulsion Intravenous 500 ml @ 20 mls/hr ONCE@1800 IV 12/11/19 18:00 12/12/19 17:59 DC 12/11/19 17:46 Fat Emulsion Intravenous 500 ml @ 20 mls/hr ONCE@1800 IV 12/12/19 18:00 12/13/19 17:59 DC 12/12/19 18:56 Fat Emulsion Intravenous 500 ml @ 20 mls/hr ONCE@1800 IV 12/13/19 18:00 12/14/19 17:59 DC 12/13/19 17:50 Fentanyl Citrate (Sublimaze) 25 mcg Q5MP PRN IV PAIN LEVEL 5-10 12/07/19 00:45 12/07/19 02:00 DC Finasteride (Proscar) 5 mg DAILY PO 12/03/19 09:00 12/03/19 13:19 DC 12/03/19 09:58 Heparin Sodium (Heparin (Flush)) 200 units ASDIRECTED PRN IV SEE LABEL COMMENTS 12/13/19 16:15 Heparin Sodium (Heparin (Flush)) 200 units PICC IV 12/13/19 18:00 12/15/19 05:52 Home Med (Med Rec Complete!) ASDIRECTED XX 12/03/19 06:15 12/03/19 06:08 DC Insulin Human Lispro (HumaLOG INSULIN) See Protocol Table Q6H AL 12/12/19 18:00 12/13/19 12:01 DC 12/13/19 06:05 Insulin Human Lispro (HumaLOG INSULIN) See Protocol Table Q6H AL 12/13/19 18:00 12/14/19 12:01 DC 12/14/19 12:40 Iron (Venofer) 100 mg DAILY IV 12/15/19 09:00 12/17/19 12:00 UNV Iron 100 mg/ Sodium Chloride 105 ml @ 105 mls/hr Q24H IV 12/15/19 11:00 12/17/19 11:59 12/15/19 10:38 Ketorolac Tromethamine (ToRADol) 15 mg Q6H IV 12/07/19 02:00 12/12/19 01:59 DC 12/11/19 20:24 Lactated Ringer's 1,000 ml @ 100 mls/hr Q10H IV 12/07/19 00:45 12/07/19 02:00 DC Lorazepam (Ativan) 1 mg STAT STAT PO 12/10/19 00:34 12/10/19 00:36 DC 12/10/19 00:43 Losartan Potassium (Cozaar) 100 mg DAILY PO 12/03/19 09:00 12/13/19 08:09 Metoclopramide HCl (REGLAN INJection) 10 mg Q6HP PRN IV NAUSEA OR VOMITING 12/05/19 10:00 12/14/19 00:57 DC 12/05/19 10:03 Metoclopramide HCl (REGLAN INJection) 10 mg Q6HP PRN IV NAUSEA OR VOMITING 12/07/19 00:45 12/07/19 02:00 DC Metronidazole 500 mg/IV Miscellaneous Supplies 100 ml @ 100 mls/hr Q8H IV 12/03/19 08:00 12/04/19 16:40 DC 12/04/19 16:18 Morphine Sulfate (Morphine Sulfate Inj) 2 mg Q2H PRN IV MODERATE/SEVERE PAIN (PS 5-10) 12/07/19 01:00 12/14/19 00:57 DC 12/07/19 18:28 Morphine Sulfate (Morphine Sulfate Inj) 2 mg Q4H PRN IV MODERATE PAIN (PS 5-7) 12/03/19 13:15 12/07/19 01:02 DC 12/04/19 19:25 Morphine Sulfate (Morphine Sulfate Inj) 4 mg Q30M PRN IV SEVERE PAIN (PS 8-10) 12/03/19 03:30 12/03/19 13:12 DC 12/03/19 03:36 Multivitamins 10 ml/Chromium/ Copper/Manganese/ Seleni/Zn 1 ml/ Amino Ac/Electrol/ Dextrose/Calcium 2,011 ml @ 75 mls/hr ONCE@1800 IV 12/10/19 18:00 12/11/19 17:59 DC 12/10/19 18:44 Ondansetron HCl (ZOFRAN INJection) 4 mg Q4HP PRN IV NAUSEA OR VOMITING 12/07/19 00:45 12/07/19 02:00 DC Ondansetron HCl (ZOFRAN INJection) 4 mg Q6HP PRN IV NAUSEA OR VOMITING 12/05/19 08:15 12/05/19 08:21 Oxycodone/ Acetaminophen (Percocet 5mg/ 325mg Tablet) 1 tab Q4HP PRN PO MILD/MODERATE PAIN (PS 1-7) 12/12/19 13:30 12/15/19 04:29 Pantoprazole Sodium (Protonix) 40 mg DAILY IV 12/12/19 09:00 12/15/19 08:32 Piperacillin Sod/ Tazobactam Sod 3.375 gm/Dextrose 50 ml @ 50 mls/hr Q6H IV 12/07/19 02:00 12/14/19 07:48 DC 12/14/19 07:44 Polyethylene Glycol (Miralax) 1 pkt DAILY PO 12/12/19 09:00 12/14/19 00:57 DC 12/13/19 08:07 Potassium Chloride 10 meq/ IV Miscellaneous Supplies 100 ml @ 100 mls/hr Q1H IV 12/09/19 10:00 12/09/19 13:59 DC 12/09/19 15:17 Potassium Chloride 10 meq/ IV Miscellaneous Supplies 100 ml @ 100 mls/hr Q1H IV 12/10/19 17:00 12/10/19 18:59 DC 12/10/19 19:32 Potassium Chloride 22.2 meq/ Amino Ac/Electrol/ Dextrose/Calcium 2,011.1 ml @ 75 mls/hr ONCE@1800 IV 12/11/19 18:00 12/12/19 17:59 DC 12/11/19 17:46 Potassium Chloride/Dextrose/ Sod Cl 1,000 ml @ 80 mls/hr [id number] IV 12/09/19 14:00 12/09/19 09:56 DC Rosuvastatin Calcium (Crestor) 20 mg QHS PO 12/03/19 21:00 12/03/19 13:12 DC Simethicone (Mylicon) 120 mg QID PO 12/09/19 09:00 12/14/19 00:57 DC 12/13/19 20:42 Sodium Chloride 1,000 ml @ 80 mls/hr [id number] IV 12/03/19 06:45 12/09/19 08:51 DC 12/09/19 00:23 Sodium Chloride 1,000 ml @ 100 mls/hr Q10H IV 12/14/19 17:00 12/15/19 14:01 Sodium Chloride (Saline Lock Flush) 10 ml ASDIRECTED PRN IV SEE LABEL COMMENTS 12/13/19 16:15 Sodium Chloride (Saline Lock Flush) 10 ml PICC IV 12/13/19 18:00 12/15/19 05:52 Tramadol HCl (Ultram) 50 mg TID PO 12/03/19 09:00 12/03/19 13:12 DC 12/03/19 09:57 Allergies Coded Allergies: No Known Allergies (Unverified , 09/29/18) Rhoda Tucker MD Dec 15, 2019 14:15
[2019-12-15] MEDS: SODIUM CHLORIDE 0.9% INJ 10 ML SYR IV PRN (14:22)
[2019-12-15 14:45] VITALS: BP 109/53
[2019-12-15 20:00] VITALS: BP 127/60
[2019-12-15] MEDS: AMITRIPTYLINE 50 MG TAB PO SCH (21:23)
[2019-12-16] MEDS: PERCOCET 5MG/325MG TAB PO PRN (02:48)
[2019-12-16 06:00] VITALS: BP 101/67
[2019-12-16] MEDS: SODIUM CHLORIDE 0.9% INJ 10 ML SYR IV SCH ×2 (06:22→16:36)
[2019-12-16] MEDS: SINEMET 25-100 MG TAB PO SCH ×2 (07:39→20:51)
[2019-12-16] MEDS: PANTOPRAZOLE 40MG TAB (PROTONIX) PO SCH (07:39)
[2019-12-16] MEDS: ENOXAPARIN 40MG/0.4ML SYRINGE (J1650 PER 10MG) SC SCH (07:40)
[2019-12-16] MEDS: LOSARTAN 50MG TABLET PO SCH (07:40)
[2019-12-16] MEDS: amLODIPine 5 MG TAB PO SCH ×2 (07:41→20:51)
[2019-12-16 07:47] LABS: HEMATOCRIT 25.9 % (42.0-52.0); HEMOGLOBIN 7.9 g/dl (13.5-17.5); MEAN CORPUSCULAR HEMOGLOBIN 31.7 pg (27.0-33.0); MEAN CORPUSCULAR HGB CONC 30.5 g/dl (32.0-36.5); PLATELET COUNT, AUTOMATED 262 10^3/uL (150-450); RED BLOOD COUNT 2.49 10^6/uL (4.30-6.10)
[2019-12-16 08:24] LABS: ALBUMIN 2.3 GM/DL (3.2-5.2); ALT/SGPT 9 U/L (12-78); BILIRUBIN,TOTAL 0.2 MG/DL (0.2-1.0); BLOOD UREA NITROGEN 21 MG/DL (7-18); CALCIUM LEVEL 8.3 MG/DL (8.8-10.2); CARBON DIOXIDE LEVEL 28 MEQ/L (21-32); CHLORIDE LEVEL 108 MEQ/L (98-107); CREATININE FOR GFR 1.21 MG/DL (0.70-1.30); GLOMERULAR FILTRATION RATE > 60.0 (>42); GLUCOSE, FASTING 88 MG/DL (70-100); POTASSIUM SERUM 5.1 MEQ/L (3.5-5.1); SODIUM LEVEL 139 MEQ/L (136-145)
[2019-12-16] MEDS: SIMETHICONE 80 MG CHEW TAB PO PRN (09:09)
--- NOTE | 2019-12-16 09:09 | REP ---
Clinical: Ileus. Technique: Single supine view of the abdomen and pelvis. Comparison: 12/14/2019. Findings: Bowel gas pattern again demonstrates dilated air filled loops of small large bowel which may be slightly improved as compared to prior examination although continued ileus versus partial obstruction are again suspected. Impression: Findings suggest mild improvement with continued evidence to suggest ileus versus partial obstruction. Electronically Signed by Daquan Ruiz MD 12/16/2019 09:01 A
[2019-12-16] MEDS: IRON SUCROSE 100 MG in NS 100 ML OVER 1 HR IV SCH (10:21)
[2019-12-16 10:22] VITALS: BP 108/40
[2019-12-16] MEDS: SODIUM CHLORIDE 0.9% INJ 10 ML SYR IV PRN (11:26)
[2019-12-16 11:30] VITALS: BP 109/50
[2019-12-16 14:25] VITALS: BP 118/67
--- NOTE | 2019-12-16 16:14 | IPNPDOC ---
Text Note Date of Service The patient was seen on 12/16/19. NOTE Hospitalist Progress Note Subjective: Patient is quite pleasant this morning. He does continue to have some abdominal pain, but reports that it is not too bad. He continues to tolerate his diet. He had 2 recorded bowel movements yesterday, and after speaking with me he indicates that he would like to go the restroom and try to have another one at this time. Objective: General: Awake, alert, oriented 3. He is quite pleasant. HEENT: Head normocephalic, atraumatic, sclera are nonicteric. Hearing is grossly intact to conversation. Respiratory: Clear to auscultation bilaterally with no wheezes, rales, or rhonchi. Cardiovascular: Regular rate and rhythm, with no rubs, gallops, or murmur. Abdomen: Soft, it does appear to be mildly distended and tympanic. Surgical incisions do not have any surrounding erythema or edema, no hepatosplenomegaly appreciated. Bowel sounds present. Extremities: 2+ pulses in the radial and dorsalis pedis bilaterally. No evidence of clubbing or cyanosis. Assessment/Plan: 1. Acute on chronic iron deficiency anemia Anemia mildly improved today. No signs or symptoms of bleeding. Continue with IV iron supplementation. Transfuse if he drops below 7. 2. Ileus Abdomen seems distended and tympanic to me, but today is the first time for me being on his case. The daughter seems to believe that it is more distended than it was yesterday, therefore KUB ordered. Since patient is still complaining of some abdominal pain though, I will order him some simethicone. He does continue to pass gas and have bowel movements. 3. Acute kidney injury, likely prerenal Resolved 4. Parkinson's disease Continue with home dose of amitriptyline, Sinemet 5. Hypertension Continue home dose of losartan and Norvasc 6. GI prophylaxis Continue by mouth Protonix 7. DVT prophylaxis Lovenox VS,Fishbone, I+O VS, Fishbone, I+O Laboratory Tests 12/16/19 06:58 Vital Signs Date Time Temp Pulse Resp B/P (MAP) Pulse Ox O2 Delivery O2 Flow Rate FiO2 12/16/19 11:30 97.7 60 17 109/50 (69) 12/16/19 06:00 93 Room Air 12/12/19 10:00 I&O- Last 24 Hours up to 6 AM 12/16/19 05:59 Intake Total 3305 ml Output Total 780 ml Balance 2525 ml DEANDRA GUEVARA DO Dec 16, 2019 16:14
[2019-12-16] MEDS: AMITRIPTYLINE 50 MG TAB PO SCH (20:51)
[2019-12-16 22:00] VITALS: BP 129/74
[2019-12-17] MEDS: SODIUM CHLORIDE 0.9% INJ 10 ML SYR IV SCH (04:44)
[2019-12-17] MEDS: PERCOCET 5MG/325MG TAB PO PRN ×3 (04:44→15:49)
[2019-12-17 06:00] VITALS: BP 123/74
[2019-12-17 08:23] LABS: VITAMIN B12 LEVEL 344 PG/ML
[2019-12-17 08:24] LABS: FOLATE 11.4 NG/ML
[2019-12-17] MEDS: IRON SUCROSE 100 MG in NS 100 ML OVER 1 HR IV SCH (09:13)
[2019-12-17] MEDS: ENOXAPARIN 40MG/0.4ML SYRINGE (J1650 PER 10MG) SC SCH (09:14)
[2019-12-17] MEDS: SIMETHICONE 80 MG CHEW TAB PO PRN ×2 (09:14→15:48)
[2019-12-17 09:15] VITALS: BP 123/74
[2019-12-17] MEDS: LOSARTAN 50MG TABLET PO SCH (09:15)
[2019-12-17] MEDS: amLODIPine 5 MG TAB PO SCH (09:15)
[2019-12-17] MEDS: PANTOPRAZOLE 40MG TAB (PROTONIX) PO SCH (09:15)
[2019-12-17] MEDS: SINEMET 25-100 MG TAB PO SCH (09:15)
[2019-12-17 10:15] VITALS: BP 119/69
[2019-12-17] MEDS ORDERED: PERCOCET PO (13:24)
[2019-12-17 14:30] VITALS: BP 126/72
--- NOTE | 2019-12-17 16:31 | DS.PDOC ---
Discharge Summary General Date of Admission Dec 03, 2019 at 06:41 Date of Discharge 12/17/2019 Discharge Summary PRIMARY CARE PHYSICIAN: Dr. Wilfred Noel MD ATTENDING AT TIME OF DISCHARGE: Dr. Rodrigue Guevara, DISCHARGE DIAGNOS(E)S: Recurrent small bowel obstruction Parkinson's disease Hypertension Surgery During Hospitalization laparoscopy with laparotomy and bowel resection for an interloop abscess with small bowel obstruction HPI & HOSPITAL COURSE: Patient is a 78-year-old male who just had a recent hospitalization, he had only been home one week after discharge from his previous hospitalization with small bowel obstruction that required lysis of adhesions and enterotomy. He presented to the emergency department once again with abdominal pain and associated nausea/vomiting. Conservative measures were attempted, however he was not progressing, therefore he had a laparoscopy with laparotomy and bowel resection for an interloop abscess with small bowel obstruction. After surgery he still had a slow recovery with postoperative ileus, he was on a short course of TPN until this resolved. Approximately one week after surgery he was finally advanced to clear liquids diet, and then he did continue to improve slowly after that in the following week. He has now been tolerating a regular diet for the past few days, repeat abdominal x-ray has shown interval improvement. The patient is feeling well, bowels are moving, and he appears stable for discharge at this time. Hero will be removed today prior to discharge. PHYSICAL EXAMINATION ON DISCHARGE: GENERAL: Awake, alert, oriented 3. CARDIOVASCULAR EXAMINATION: Regular rate and rhythm, with no rubs, gallops, or murmur. RESPIRATORY EXAMINATION: Clear to auscultation bilaterally with no wheezes, rales, or rhonchi. ABDOMINAL EXAMINATION: Soft, minimally tender, nondistended. Bowel sounds present. Surgical scars are clean, without any drainage or surrounding erythema. EXTREMITIES: No clubbing or edema noted. 2+ pulses in the radial bilaterally. DISPOSITION: Home with home health services DISCHARGE INSTRUCTIONS: Follow-up with Surgeon Dr. Medina within 7-14 days. If symptoms return, or if you experience worsening of your symptoms, please call your doctor or return to the emergency department. DISCHARGE MEDICATIONS: No changes made in his home medications Will send prescription for oxycodone/acetaminophen 5-325 one tab by mouth every 8 hours when necessary for severe pain (MDD #2) prescription for 7 days, 14 tablets Vital Signs/I&Os Vital Signs Date Time Temp Pulse Resp B/P (MAP) Pulse Ox O2 Delivery O2 Flow Rate FiO2 12/17/19 15:49 18 Room Air 12/17/19 09:15 123/74 12/17/19 09:15 76 12/17/19 06:00 97.9 97 12/12/19 10:00 I&O- Last 24 Hours up to 6 AM 12/17/19 06:00 Intake Total 2575 ml Output Total 2220 ml Balance 355 ml Microbiology Microbiology 12/15/19 Stool Occult Blood (PATO) - Final, Complete Discharge Medications Scheduled Alfuzosin HCl (Alfuzosin HCl ER) 10 Mg Tab, 10 MG PO DAILY, (Reported) Amitriptyline HCl (Amitriptyline HCl) 50 Mg Tab, 50 MG PO QHS, (Reported) Amlodipine Besylate (Amlodipine Besylate) 5 Mg Tab, 5 MG PO BID, (Reported) Carbidopa/Levodopa (Carbidopa-Levodopa 25-100 Tab) 1 Each Tablet, 1 TAB PO BID, (Reported) Finasteride (Finasteride) 5 Mg Tab, 5 MG PO DAILY, (Reported) Losartan Potassium (Losartan Potassium) 100 Mg Tab, 100 MG PO DAILY, (Reported) Metronidazole (Flagyl) 500 Mg Tablet, 500 MG PO Q8H Psyllium Husk (Psyllium Husk) 1 Pow Pow, 1 POW PO DAILY, (Reported) Rosuvastatin Calcium (Rosuvastatin Calcium) 20 Mg Tablet, 20 MG PO QHS, (Reported) Sennosides/Docusate Sodium (Senexon-S 50-8.6 mg Tablet) 1 Each Tablet, 2 EACH PO BID, (Reported) Tramadol HCl (Tramadol HCl) 50 Mg Tab, 50 MG PO TID, (Reported) [Sominex] , 1 TAB PO QHS, (Reported) Scheduled PRN Acetaminophen (Tylenol Extra Strength) 500 Mg Tablet, 1,000 MG PO TID PRN for PAIN / FEVER, (Reported) Oxycodone/Acetaminophen (Oxycodone-Acetaminophen 5-325) 1 Each Tablet, 1 TAB PO Q8HP PRN for SEVERE PAIN (PS 8-10) Polyethylene Glycol 3350 (Miralax) 1 Pow Pow, 17 GM PO DAILY PRN for CON STIPATION, (Reported) Allergies Coded Allergies: No Known Allergies (Unverified , 09/29/18) RODRIGUE GUEVARA 6, 2020 16:31
[2019-12-18] MEDS ORDERED: OXYC1TAB23 PO (11:20)
[2019-12-18] MEDS ORDERED: [UNRECOGNIZED DRUG - CODE] PO (11:20)
== END 2019-12-17 17:50 | disposition home health service (06) | DRG 857 ==
LOC: M ED 01:39 → M ED INP 06:41 → ENRESERVDT 07:46 → ENRESERVTM 07:46 → M MS5PR 08:52
PROVIDERS: ADMIT Internal Medicine; ATTEND Internal Medicine
PROC: 0DN80ZZ Release Small Intestine, Open Approach (ICD-10-PCS; 2019-12-06)
PROC: 8E0W4CZ Robotic Assisted Procedure of Trunk Region, Percutaneous Endoscopic Approach (ICD-10-PCS; 2019-12-06)
PROC: 0DB80ZZ Excision of Small Intestine, Open Approach (ICD-10-PCS; principal; 2019-12-06 15:15)
PROC: 02HV33Z Insertion of Infusion Device into Superior Vena Cava, Percutaneous Approach (ICD-10-PCS; 2019-12-11)
DX: T81.49XA Infection following a procedure, other surgical site, initial encounter (principal); K56.609 Unspecified intestinal obstruction, unspecified as to partial versus complete obstruction; K91.89 Other postprocedural complications and disorders of digestive system; N17.9 Acute kidney failure, unspecified; G20 Parkinson's disease; I10 Essential (primary) hypertension; Z79.899 Other long term (current) drug therapy; Z87.891 Personal history of nicotine dependence; E87.6 Hypokalemia; Z53.31 Laparoscopic surgical procedure converted to open procedure; D50.9 Iron deficiency anemia, unspecified; Y83.2 Surgical operation with anastomosis, bypass or graft as the cause of abnormal reaction of the patient, or of later complication, without mention of misadventure at the time of the procedure

== ENCOUNTER 2019-12-18 08:01 | Inpatient (IN) | payer MEDICARE, BC, OTHER ==
[~2019-12-18] VITALS: Ht 170.2 cm; Wt 64.4 kg
[~2019-12-18 08:01] MED LIST changes: +SENN1TAB96 PO
[2019-12-18] MEDS ORDERED: PANTOPRAZOLE 40MG VIAL (C9113 PER 1) IV ONE (08:30)
[2019-12-18 09:04] LABS: BASO % 0.4 % (0.0-1.0); EOS # 0.2 10^3/uL (0.0-0.5); EOS % 2.5 % (0.0-3.0); HEMATOCRIT 25.3 % (42.0-52.0); HEMOGLOBIN 7.9 g/dl (13.5-17.5); LYMPH # 0.8 10^3/uL (1.5-5.0); LYMPH % 11.7 % (24.0-44.0); MEAN CORPUSCULAR HEMOGLOBIN 32.4 pg (27.0-33.0); MEAN CORPUSCULAR HGB CONC 31.2 g/dl (32.0-36.5); MEAN CORPUSCULAR VOLUME 103.7 fl (80.0-96.0); MONO # 0.8 10^3/uL (0.0-0.8); MONO % 10.4 % (0.0-5.0); NEUTROPHILS # 5.3 10^3/uL (1.5-8.5); NEUTROPHILS % 74.2 % (36.0-66.0); PLATELET COUNT, AUTOMATED 313 10^3/uL (150-450); RED BLOOD COUNT 2.44 10^6/uL (4.30-6.10); WHITE BLOOD COUNT 7.2 10^3/uL (4.0-10.0)
[2019-12-18 09:13] LABS: INR 1.08; PROTHROMBIN TIME 13.7 SECONDS (11.8-14.0)
[2019-12-18 09:14] LABS: PARTIAL THROMBOPLASTIN TIME 38.1 SECONDS (25.0-38.4)
[2019-12-18 09:28] LABS: ALBUMIN 2.6 GM/DL (3.2-5.2); ALT/SGPT 9 U/L (12-78); AMYLASE 33 U/L (25-115); BILIRUBIN,DIRECT 0.1 MG/DL (0.0-0.2); BILIRUBIN,TOTAL 0.4 MG/DL (0.2-1.0); CK-MB VALUE MASS 2.2 NG/ML (<3.6); CPK CREATINE PHOSPHOKINASE 70 U/L (39-308); LIPASE 54 U/L (73-393); MB/CK RELATIVE INDEX 3.14 (< OR =4); TOTAL PROTEIN 6.3 GM/DL (6.4-8.2); TROPONIN I < 0.02 NG/ML (< 0.10)
[2019-12-18] MEDS ORDERED: [UNRECOGNIZED DRUG - CODE] PO (11:20)
[2019-12-18] MEDS ORDERED: OXYC1TAB23 PO (11:20)
--- NOTE | 2019-12-18 12:01 | REP ---
REASON FOR EXAM: Weakness. The latest prior for comparison is a frontal view obtained as part of an abdominal series on 11/22/2019. The technique utilized in obtaining the radiograph has magnified the cardiac silhouette and accentuated the interstitial markings. Curvilinear bibasilar opacities have developed with a discoid opacity in the left mid lung zone. There are chronic basilar changes with chronic bilateral CP angle blunting. The heart is not enlarged. There is no change in the osseous structures. IMPRESSION: Likely subsegmental atelectatic changes superimposed on chronic fibrotic changes. Consider PA and lateral views of the chest. Electronically Signed by Rodney Ferrara DO 12/18/2019 05:24 P
[2019-12-18 14:00] VITALS: BP 98/54
[2019-12-18 14:07] VITALS: BP 92/48
[2019-12-18 14:22] VITALS: BP 123/58
[2019-12-18] MEDS ORDERED: PERCOCET 5MG/325MG TAB PO PRN (14:30)
[2019-12-18 15:07] VITALS: BP 115/58
[2019-12-18] MEDS: traMADol 50 MG TAB PO SCH ×2 (15:14→21:21)
[2019-12-18 16:39] VITALS: BP 110/62
[2019-12-18] MEDS: SUCRALFATE SUSP 1GM/10ML UD PO SCH ×2 (17:05→21:21)
--- NOTE | 2019-12-18 19:23 | HPEPDOC ---
General Date of Admission Dec 18, 2019 at 12:44 Date of Service: Dec 18, 2019 Chief Complaint The patient is a 79-year-old male admitted with a reason for visit of GIB. History of Present Illness Patient is a 79-year-old male with PMH of hypertesion, HLD, Parkinsons, BPH who just had a two recent hospitalization for SBO one from 11/20/19 to 11/27/19 and another from 12/03/19 to 12/17/19. During the first hospitalization with small bowel obstruction he required robotic lysis of adhesions and had an enterotomy. During the second hospitalization conservative measures were attempted, however he was not progressing, therefore he had a laparoscopy with robotic lysis of adhesions converted to laparotomy and 20 to 30 cm resection of small bowel resection for an interloop abscess , adhesions, scarring with small bowel obstruction. After surgery he had a slow recovery with postoperative ileus, he was on a short course of TPN until this resolved and he started eating regular diet. He required several days of physical therapy till he was felt to be close to his baseline functional status and was discharged home yesterday. He comes back today to the ED for extreme weakness, tiredness and inability get out of bed this morning. He also reported that he noticed bright red blood mixed with stool last night without any abdominal pain or diarrhea. Today he did not have any bowel movements. Rectal exam with guaiac in the ED showed soft black heme positive stools. His Hb was 7.9 same as yesterday. Review of chart shows that he has been having hb mostly in the 7.3 to 7.9 range for the last week which is a drop from 10.5 to 12.5 range of last month. Patient was admitted for symptomatic anemia, Possibly from GIB. Home Medications Scheduled Alfuzosin HCl (Alfuzosin HCl ER) 10 Mg Tab, 10 MG PO DAILY, (Reported) Amitriptyline HCl (Amitriptyline HCl) 50 Mg Tab, 50 MG PO QHS, (Reported) Amlodipine Besylate (Amlodipine Besylate) 5 Mg Tab, 5 MG PO BID, (Reported) Carbidopa/Levodopa (Carbidopa-Levodopa 25-100 Tab) 1 Each Tablet, 1 TAB PO BID, (Reported) Finasteride (Finasteride) 5 Mg Tab, 5 MG PO DAILY, (Reported) Pantoprazole Sodium (Protonix) 40 Mg Tablet.dr, 1 TAB PO DAILY Psyllium Husk (Psyllium Husk) 1 Pow Pow, 1 POW PO DAILY, (Reported) Rosuvastatin Calcium (Rosuvastatin Calcium) 20 Mg Tablet, 20 MG PO QHS, (Reported) Sennosides/Docusate Sodium (Senexon-S 50-8.6 mg Tablet) 1 Each Tablet, 2 EACH PO BID, (Reported) Sucralfate (Sucralfate) 1 Gm/10 Ml Oral.susp, 1 GM PO ACHS Tramadol HCl (Tramadol HCl) 50 Mg Tab, 50 MG PO TID, (Reported) Scheduled PRN Diphenhydramine HCl (Sominex) 25 Mg Tablet, 50 MG PO QHS PRN for SLEEP, (Reported) Oxycodone HCl/Acetaminophen (Oxycodone-Acetaminophen 5-325) 1 Each Tablet, 1 TAB PO Q8H PRN for PAIN, (Reported) new med, not started yet Polyethylene Glycol 3350 (Miralax) 1 Pow Pow, 17 GM PO DAILY PRN for CONSTIPATION, (Reported) Allergies Coded Allergies: No Known Allergies (Unverified , 09/29/18) Past Medical History Medical History Parkinson's disease. Hypertension. Small bowel obstructions. Diverticulosis Anemia Iron deficiency Hyperlipidemia BPH s/p TURP Chronic constipation Chronic narcotic use. Chronic Low back and neck pain Robotic Lysis of adhesions on 11/2019 Robotic-assisted laparoscopic lysis of adhesions converted to laparotomy, lysis of adhesions with drainage of interloop abscess, small bowel resection and anastomosis with repair of seromuscular tears on 12/13/19 LUMBAR DJD STATUS POST MULTILEVEL FUSION : L1-S1 POSTERIOR DECOMPRESSION WITH FUSION T11-S1 WITH ILIAC BOLTS TRANSFORAMINAL LUMBAR INTERBODY FUSION L5/S1- RIGHT ULNAR NEUROPATHY AT ELBOW MODERATE MOTOR POLYNEUROPATHY BILATERAL UPPER EXTREMITIES RIGHT SUBACUTE AND LEFT CHRONIC CERVICAL POLYRADICULOPATHY ANXIETY DISORDER/DEPRESSION ALCOHOLIC FATTY LIVER DISEASE 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 Dyspnea Gastrointestinal: Reports: Melena, Hematochezia; Denies: Nausea, Vomiting, Abdominal Pain, Diarrhea Genitourinary: Reports: Frequency; Denies: Dysuria, Incontinence, Retention Hematologic: Denies: Bruising, Bleeding Excessively Musculoskeletal: Reports: Back Pain; Denies: Neck Pain Physical Examination General Exam: Positive: Alert, Cooperative, No Acute Distress Eye Exam: Positive: PERRLA, Conjunctiva & lids normal, EOMI; Negative: Sclera icteric ENT Exam: Positive: Atraumatic, Mucous membr. moist/pink, Pharynx Normal Neck Exam: Positive: Supple; Negative: JVD, thyromegaly Chest Exam: Positive: Clear to auscultation, Normal air movement Heart Exam: Positive: Rate Normal, Regular Rhythm, Normal S1, Normal S2; Negative: Murmurs, Rubs Abdomen Exam: Positive: Normal bowel sounds, Soft, Tenderness (at surgical incision site); Negative: Hepatospenomegaly Extremity Exam: Negative: Clubbing, Cyanosis, Edema Skin Exam: Positive: Nl turgor and temperature; Negative: Breakdown, Lesion Vital Signs Vital Signs Date Time Temp Pulse Resp B/P (MAP) Pulse Ox O2 Delivery O2 Flow Rate FiO2 12/18/19 16:39 98.1 78 18 110/62 95 Room Air Laboratory Data Labs 24H Laboratory Tests 2 12/18/19 08:42: Immature Granulocyte % (Auto) 0.8, Neutrophils (%) (Auto) 74.2H, Lymphocytes (%) (Auto) 11.7L, Monocytes (%) (Auto) 10.4H, Eosinophils (%) (Auto) 2.5, Basophils (%) (Auto) 0.4, Neutrophils # (Auto) 5.3, Lymphocytes # (Auto) 0.8L, Monocytes # (Auto) 0.8, Eosinophils # (Auto) 0.2, Basophils # (Auto) 0.0, Nucleated Red Blo od Cells % (auto) 0.0, Prothrombin Time 13.7, Prothromb Time International Ratio 1.08, Activated Partial Thromboplast Time 38.1, Lactic Acid Level 0.9, Total Bilirubin 0.4#, Direct Bilirubin 0.1, Aspartate Amino Transf (AST/SGOT) 23, Alanine Aminotransferase (ALT/SGPT) 9L, Alkaline Phosphatase 74, Total Creatine Kinase 70, Creatine Kinase MB 2.2, Creatine Kinase MB Relative Index 3.14, Troponin I < 0.02, Total Protein 6.3L, Albumin 2.6L, Albumin/Globulin Ratio 0.7, Amylase Level 33, Lipase 54L 12/18/19 08:54: POC Glucose (Misc Panel) 96, POC Sodium (Misc Panel) 139, POC Potassium (Misc Panel) 4.2, POC Chloride (Misc Panel) 105, POC Total CO2 (Misc Panel) 23.0, POC Blood Urea Nitrogen (Misc Panel 16, POC Ionized Calcium (Misc Panel) 4.9, POC Creatinine (Misc Panel) 1.1, POC Hematocrit (Misc Panel) 29.0L CBC/BMP Laboratory Tests 12/18/19 08:42 Microbiology Microbiology 12/18/19 Blood Culture, Received Pending 12/18/19 Blood Culture, Received Pending Assessment/Plan Patient is a 79-year-old male with PMH of hypertesion, HLD, Parkinsons, BPH who just had a two recent hospitalization for SBO one from 11/20/19 to 11/27/19 and another from 12/03/19 to 12/17/19. During the first hospitalization with small bowel obstruction he required robotic lysis of adhesions and had an enterotomy. During the second hospitalization conservative measures were attempted, however he was not progressing, therefore he had a laparoscopy with robotic lysis of adhesions converted to laparotomy and 20 to 30 cm resection of small bowel resection for an interloop abscess , adhesions, scarring with small bowel obstruction. After surgery he had a slow recovery with postoperative ileus, he was on a short course of TPN until this resolved and he started eating regular diet. He required several days of physical therapy till he was felt to be close to his baseline functional status and was disc harged home yesterday. He comes back today to the ED for extreme weakness, tiredness and inability get out of bed this morning. He also reported that he noticed bright red blood mixed with stool last night without any abdominal pain or diarrhea. Today he did not have any bowel movements. Rectal exam with guaiac in the ED showed soft black heme positive stools. His Hb was 7.9 same as yesterday. Review of chart shows that he has been having hb mostly in the 7.5 to 8.5 range for the last week. Patient was admitted for symptomatic anemia, Possibly from GIB. Acute on chronic blood loss anemia due to GI blood loss Possibly from stress ulceration or gastritis due to his pronged hospitalizations and surgeries in the last 1 month surgical blood loss/ repeated blood draws also adding to the issue. will transfuse PRBC monitor HH pantoprazole iv bid, sucralfate. clear liquid diet. surgical consult Recent h/o recurrent SBOs with 2 surgeries in the last month no abdominal pain at present. BPH home med Hypertension BP controlled will hold losartan and amlodipine. May not need both medications. Hyperlipidemia hold statin. Parkinsons disease sinemet. Plan / VTE VTE Prophylaxis Ordered?: Yes LEONELA CONTRERAS MD Dec 18, 2019 19:22
[2019-12-18 20:08] LABS: HEMOGLOBIN 8.4 g/dl (13.5-17.5)
--- NOTE | 2019-12-18 21:20 | ECGEPIP ---
[facility] - ED Test Date: 2019-12-18 Pat Name: RACHAEL FOREMAN Department: Room: - Gender: Male Operations Intern: Lilli NUNES : 1940 Requested By: KENDRA Mo Order Number: [id number] Reading MD: Chirag Hi Measurements Intervals [place] Rate: 59 P: 13 OH: 234 QRS: -2 QRSD: 82 T: 23 QT: 427 QTc: 425 Interpretive Statements SINUS BRADYCARDIA WITH FIRST DEGREE AV BLOCK POOR R WAVE PROGRESSION SIMILAR TO 12/03/19 Electronically Signed on 12-18-2019 21:19:52 EDT by Chirag Hi
[2019-12-18] MEDS: SINEMET 25-100 MG TAB PO SCH (21:21)
[2019-12-18] MEDS: PANTOPRAZOLE 40MG VIAL (C9113 PER 1) IV SCH (21:21)
[2019-12-18 22:00] VITALS: BP 135/67
[2019-12-19 04:32] VITALS: BP 115/54
[2019-12-19 05:04] LABS: HEMATOCRIT 25.3 % (42.0-52.0)
[2019-12-19] MEDS: FINASTERIDE 5 MG TAB PO SCH (08:22)
[2019-12-19] MEDS: SUCRALFATE SUSP 1GM/10ML UD PO SCH ×4 (08:22→21:00)
[2019-12-19] MEDS: traMADol 50 MG TAB PO SCH ×3 (08:22→22:22)
[2019-12-19] MEDS: PANTOPRAZOLE 40MG VIAL (C9113 PER 1) IV SCH ×2 (08:22→22:21)
[2019-12-19] MEDS: SINEMET 25-100 MG TAB PO SCH ×2 (08:22→22:21)
[2019-12-19 10:38] VITALS: BP 126/58
--- NOTE | 2019-12-19 10:42 | IPNPDOC ---
Subjective Date Seen The patient was seen on 12/19/19. Subjective Chief Complaint/HPI Feels a little better but says still very weak to get out of bed by himself. He also reported that he saw some black stools in the toilet paper last night. Nurses did not report any esperanza or hematochezia. HH did not move with 1 unit of PRBC. Will give another PRBC today. Objective Physical Examination General Exam: Positive: Alert, Cooperative, No Acute Distress Eye Exam: Positive: PERRLA, Conjunctiva & lids normal, EOMI; Negative: Sclera icteric ENT Exam: Positive: Atraumatic, Mucous membr. moist/pink, Pharynx Normal Neck Exam: Positive: Supple; Negative: JVD, thyromegaly Chest Exam: Positive: Clear to auscultation, Normal air movement Heart Exam: Positive: Rate Normal, Regular Rhythm, Normal S1, Normal S2; Negative: Murmurs, Rubs Abdomen Exam: Positive: Normal bowel sounds, Soft, Tenderness (at surgical incision site); Negative: Hepatospenomegaly Extremity Exam: Negative: Clubbing, Cyanosis, Edema Skin Exam: Positive: Nl turgor and temperature; Negative: Breakdown, Lesion Assessment /Plan Assessment Patient is a 79-year-old male with PMH of hypertesion, HLD, Parkinsons, BPH who just had a two recent hospitalization for SBO one from 11/20/19 to 11/27/19 and another from 12/03/19 to 12/17/19. During the first hospitalization with small bowel obstruction he required robotic lysis of adhesions and had an enterotomy. During the second hospitalization conservative measures were attempted, however he was not progressing, therefore he had a laparoscopy with robotic lysis of adhesions converted to laparotomy and 20 to 30 cm resection of small bowel resection for an interloop abscess , adhesions, scarring with small bowel obstruction. After surgery he had a slow recovery with postoperative ileus, he was on a short course of TPN until this resolved and he started eating regular diet. He required several days of physical therapy till he was felt to be close to his baseline functional status and was discharged home yesterday. He comes back today to the ED for extreme weakness, tiredness and inability get out of bed this morning. He also reported that he noticed bright red blood mixed with stool last night without any abdominal pain or diarrhea. Today he did not have any bowel movements. Rectal exam with guaiac in the ED showed soft black heme positive stools. His Hb was 7.9 same as yesterday. Review of chart shows that he has been having hb mostly in the 7.5 to 8.5 range for the last week. Patient was admitted for symptomatic anemia, Possibly from GIB. Acute on chronic blood loss anemia due to GI blood loss Possibly from stress ulceration or gastritis due to his pronged hospitalizations and surgeries in the last 1 month surgical blood loss/ repeated blood draws also adding to the issue will transfuse PRBC monitor HH pantoprazole iv bid, sucralfate. full liquids. surgical consult Recent h/o recurrent SBOs with 2 surgeries in the last month no abdominal pain at present no nausea or vomiting No features of bowel obstruction. BPH home med Hypertension BP controlled will hold losartan and amlodipine. May not need both medications. Hyperlipidemia hold statin. Parkinsons disease sinemet. DVT prophylaxis: TEDS and seq. Plan/VTE VTE Prophylaxis Ordered?: Yes VS, I&O, 24H, Fishbone Vital Signs/I&O Vital Signs Date Time Temp Pulse Resp B/P (MAP) Pulse Ox O2 Delivery O2 Flow Rate FiO2 12/19/19 08:22 16 12/19/19 04:32 98.0 52 115/54 (74) 95 Room Air I&O- Last 24 Hours up to 6 AM 12/19/19 06:00 Intake Total 1550 ml Output Total 950 ml Balance 600 ml Laboratory Data CBC/BMP Laboratory Tests 12/18/19 19:57 12/19/19 04:54 Microbiology Microbiology 12/18/19 Blood Culture - Preliminary, Resulted No growth after 24 hours . All specim... 12/18/19 Blood Culture - Preliminary, Resulted No growth after 24 hours . All specim... LEONELA CONTRERAS MD Dec 19, 2019 10:42
[2019-12-19 11:30] VITALS: BP 115/56
[2019-12-19 14:06] LABS: HEMATOCRIT 32.4 % (42.0-52.0)
[2019-12-19 14:30] VITALS: BP 124/62
[2019-12-19 14:39] LABS: HEMOGLOBIN 10.2 g/dl (13.5-17.5)
[2019-12-19 20:14] VITALS: BP 130/64
[2019-12-19 20:16] LABS: HEMATOCRIT 30.4 % (42.0-52.0); HEMOGLOBIN 9.6 g/dl (13.5-17.5)
[2019-12-19] MEDS: AMITRIPTYLINE 50 MG TAB PO SCH (22:21)
[2019-12-19] MEDS: diphenhydrAMINE 25MG CAP PO PRN (22:21)
[2019-12-20 06:09] VITALS: BP 149/74
[2019-12-20] MEDS: FINASTERIDE 5 MG TAB PO SCH (07:45)
[2019-12-20] MEDS: PANTOPRAZOLE 40MG VIAL (C9113 PER 1) IV SCH ×2 (07:45→22:17)
[2019-12-20] MEDS: SUCRALFATE SUSP 1GM/10ML UD PO SCH ×4 (07:45→22:18)
[2019-12-20] MEDS: SINEMET 25-100 MG TAB PO SCH ×2 (07:46→22:16)
[2019-12-20] MEDS: PERCOCET 5MG/325MG TAB PO PRN (07:46)
[2019-12-20 08:17] LABS: BASO # 0.1 10^3/uL (0.0-0.2); BASO % 0.9 % (0.0-1.0); EOS # 0.2 10^3/uL (0.0-0.5); EOS % 3.9 % (0.0-3.0); HEMATOCRIT 32.7 % (42.0-52.0); HEMOGLOBIN 10.2 g/dl (13.5-17.5); LYMPH % 16.2 % (24.0-44.0); MEAN CORPUSCULAR HEMOGLOBIN 30.9 pg (27.0-33.0); MEAN CORPUSCULAR HGB CONC 31.2 g/dl (32.0-36.5); MEAN CORPUSCULAR VOLUME 99.1 fl (80.0-96.0); MONO # 0.6 10^3/uL (0.0-0.8); MONO % 10.9 % (0.0-5.0); NEUTROPHILS % 67.6 % (36.0-66.0); PLATELET COUNT, AUTOMATED 316 10^3/uL (150-450); WHITE BLOOD COUNT 5.9 10^3/uL (4.0-10.0)
[2019-12-20 08:38] LABS: BLOOD UREA NITROGEN 10 MG/DL (7-18); CALCIUM LEVEL 8.9 MG/DL (8.8-10.2); CARBON DIOXIDE LEVEL 29 MEQ/L (21-32); CHLORIDE LEVEL 106 MEQ/L (98-107); CREATININE FOR GFR 1.09 MG/DL (0.70-1.30); GLOMERULAR FILTRATION RATE > 60.0 (>42); GLUCOSE, FASTING 80 MG/DL (70-100); POTASSIUM SERUM 4.4 MEQ/L (3.5-5.1); SODIUM LEVEL 140 MEQ/L (136-145)
[2019-12-20] MEDS: traMADol 50 MG TAB PO SCH ×3 (09:00→22:17)
--- NOTE | 2019-12-20 09:41 | CR ---
DATE OF CONSULTATION: 12/19/2019 REASON FOR CONSULTATION: Recent abdominal surgery and possible GI bleed. HISTORY OF PRESENT ILLNESS: The patient is a 79-year-old man well-known to me. He was admitted initially on 11/20/2019 with evidence of a bowel obstruction and ultimately underwent a robotic-assisted laparoscopic lysis of adhesions and repair of an enterotomy by Dr. Courtney on 11/23/2019. He appeared to improve and was discharged home several days later. He represented on 12/03/2019 with evidence of recurrent obstruction. He was followed with nasogastric decompression for several days and then underwent a robotic-assisted lysis of adhesions with exploratory laparotomy and a small bowel resection and drainage of an interloop abscess. This was on 12/06/2019. He was slow to have a return of bowel function. He has remained quite distended but has been tolerating a diet and having some looser bowel movements. He appeared to be doing better on Tuesday12/17/2019 and was discharged home. He was brought back to the emergency department on the morning of 12/18/2019 with significant weakness and dizziness and some possible rectal bleeding. He has been readmitted by the hospitalist service for further evaluation and management and I was asked to see him. ALLERGIES: Allergies are none known. HOME MEDICATIONS: Are as listed in the admitting record. MEDICAL HISTORY: Significant for hypertension and Parkinson's disease. He has a history of some diverticulosis. Recently he has been anemic. He has a history of hyperlipidemia. He had his recent small bowel obstructions from adhesions. He does have some chronic low back and neck pain. PAST SURGICAL HISTORY: Significant for his two recent procedures for bowel obstructions and an abscess. He has undergone a previous lumbosacral spine fusion. He underwent treatment for a bladder neck contracture. He has had a transurethral resection of prostate. FAMILY HISTORY: Significant for some heart disease. SOCIAL HISTORY: He is a former smoker and denies any significant alcohol use. REVIEW OF SYSTEMS: Review of systems shows no new problems since his recent discharge. He has had no chest pain or palpitations. He denies any shortness of breath, cough or wheezing. He has had no hematuria or dysuria. Does think he has seen some dark stool but has not had a bowel movement on the day of admission. PHYSICAL EXAMINATION: Physical exam reveals a thin pleasant older man sitting up in a chair at the bedside. He is alert and recognizes me from his recent admissions. Most recent vital signs show him to be afebrile with a pulse of 69 and blood pressure of 115/56. Skin is warm and dry. Sclerae are anicteric. The neck is supple. Heart: Exam shows a regular rhythm. He is not tachycardiac. Lungs are clear but his breath sounds are somewhat distant. His abdomen remains quite distended. His incisions all appear to be healing well. He does have fairly active bowel sounds. There is no sign of hernia or wound infection. LABORATORY DATA: Laboratory studies yesterday showed a white count of 7, hemoglobin 8, hematocrit 25. He has received 2 units of packed red blood cells since admission. His most recent blood count this morning showed a hemoglobin of 8 with a hematocrit of 25. He has been receiving a second unit of blood since then. Chemistry profile was not repeated today. IMPRESSION: The patient was re-admitted following surgery on 12/06/2019 for a recurrent small bowel obstruction with an interloop abscess and adhesions. He underwent a small bowel resection. He has remained quite distended since then but seems to be having adequate bowel function and denies any nausea or vomiting. He is not having any active bleeding, though his stool was darker and was heme-positive. RECOMMENDATIONS: At this point he does not appear to require any immediate surgical intervention. The bleeding could be from his anastomosis, although it may be more likely to be from rectal irritation or hemorrhoids. I would not recommend attempting any sort of endoscopic evaluation at this time. I will be happy to follow Mr. Banda while he remains in the hospital and would hope to see his abdomen gradually decompress as his bowel motility improves. SERENA
--- NOTE | 2019-12-20 13:38 | IPNPDOC ---
Subjective Date Seen The patient was seen on 12/20/19. Subjective Chief Complaint/HPI Complains of weakness and fatigue. He reports mild pain in the left lower quadrant on palpation. He had an incontinent soft bowel movement last Night. No fever or chills. Working with PT. Objective Physical Examination General Exam: Positive: Alert, Cooperative, No Acute Distress Eye Exam: Positive: PERRLA, Conjunctiva & lids normal, EOMI; Negative: Sclera icteric ENT Exam: Positive: Atraumatic, Mucous membr. moist/pink, Pharynx Normal Neck Exam: Positive: Supple; Negative: JVD, thyromegaly Chest Exam: Positive: Clear to auscultation, Normal air movement Heart Exam: Positive: Rate Normal, Regular Rhythm, Normal S1, Normal S2; Negative: Murmurs, Rubs Abdomen Exam: Positive: BS Hyperactive, Soft, Tenderness (left lower quadrant), Other (distended.); Negative: Hepatospenomegaly Extremity Exam: Negative: Clubbing, Cyanosis, Edema Skin Exam: Positive: Nl turgor and temperature; Negative: Breakdown, Lesion Assessment /Plan Assessment Patient is a 79-year-old male with PMH of hypertesion, HLD, Parkinsons, BPH who just had a two recent hospitalization for SBO one from 11/20/19 to 11/27/19 and another from 12/03/19 to 12/17/19. During the first hospitalization with small bowel obstruction he required robotic lysis of adhesions and had an enterotomy. During the second hospitalization conservative measures were attempted, however he was not progressing, therefore he had a laparoscopy with robotic lysis of adhesions converted to laparotomy and 20 to 30 cm resection of small bowel resection for an interloop abscess , adhesions, scarring with small bowel obstruction. After surgery he had a slow recovery with postoperative ileus, he was on a short course of TPN until this resolved and he started eating regular diet. He required several days of physical therapy till he was felt to be close to his baseline functional status and was discharged home yesterday. He comes back today to the ED for extreme weakness, tiredness and inability get out of bed this morning. He also reported that he noticed bright red blood mixed with stool last night without any abdominal pain or diarrhea. Today he did not have any bowel movements. Rectal exam with guaiac in the ED showed soft black heme positive stools. His Hb was 7.9 same as yesterday. Review of chart shows that he has been having hb mostly in the 7.5 to 8.5 range for the last week. Patient was admitted for symptomatic anemia, Possibly from GIB. Acute on chronic blood loss anemia due to GI blood loss Possibly from stress ulceration or gastritis due to his pronged hospitalizations and surgeries in the last 1 month surgical blood loss from anastomosis/ rectal irritation or hemorrhoids/repeated blood draws also adding to the issue will transfuse PRBC monitor HH pantoprazole iv bid, sucralfate. full liquids. Surgical consult appreciated. Surgical recommended against attempting any endoscopic evaluation at this time. 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 BPH home med Hypertension BP controlled on losartan and amlodipine at home. May not need both medications. will restart amlodipine with hold parameters. Hyperlipidemia hold statin. Parkinsons disease sinemet. DVT prophylaxis: TEDS and seq. Plan/VTE VTE Prophylaxis Ordered?: Yes VS, I&O, 24H, Fishbone Vital Signs/I&O Vital Signs Date Time Temp Pulse Resp B/P (MAP) Pulse Ox O2 Delivery O2 Flow Rate FiO2 12/20/19 08:16 18 Room Air 12/20/19 06:09 97.7 55 149/74 (99) 99 I&O- Last 24 Hours up to 6 AM 12/20/19 06:00 Intake Total 2705 ml Output Total 1826 ml Balance 879 ml Laboratory Data 24H LABS Laboratory Tests 2 12/20/19 07:58: Immature Granulocyte % (Auto) 0.5, Neutrophils (%) (Auto) 67.6H, Lymphocytes (%) (Auto) 16.2L, Monocytes (%) (Auto) 10.9H, Eosinophils (%) (Auto) 3.9H, Basophils (%) (Auto) 0.9, Neutrophils # (Auto) 4.0, Lymphocytes # (Auto) 1.0L, Monocytes # (Auto) 0.6, Eosinophils # (Auto) 0.2, Basophils # (Auto) 0.1, Nucleated Red Blood Cells % (auto) 0.0, Anion Gap 5L, Glomerular Filtration Rate > 60.0, Calcium Level 8.9 CBC/BMP Laboratory Tests 12/19/19 13:53 12/19/19 20:07 12/20/19 07:58 Microbiology Microbiology 12/18/19 Blood Culture - Preliminary, Resulted No Growth after 48 hours. All Specime... 12/18/19 Blood Culture - Preliminary, Resulted No Growth after 48 hours. All Specime... LEONELA CONTRERAS MD Dec 20, 2019 13:38
[2019-12-20 14:00] VITALS: BP 129/62
[2019-12-20] MEDS: amLODIPine 5 MG TAB PO SCH (22:17)
[2019-12-20] MEDS: AMITRIPTYLINE 50 MG TAB PO SCH (22:17)
[2019-12-20] MEDS: diphenhydrAMINE 25MG CAP PO PRN (22:17)
[2019-12-20 22:20] VITALS: BP 119/75
[2019-12-21 06:00] VITALS: BP 130/73
[2019-12-21] MEDS: SUCRALFATE SUSP 1GM/10ML UD PO SCH ×4 (07:36→20:58)
[2019-12-21] MEDS: FINASTERIDE 5 MG TAB PO SCH (07:38)
[2019-12-21] MEDS: SINEMET 25-100 MG TAB PO SCH ×2 (07:38→20:59)
[2019-12-21] MEDS: amLODIPine 5 MG TAB PO SCH ×2 (07:38→20:59)
[2019-12-21] MEDS: PERCOCET 5MG/325MG TAB PO PRN (07:38)
[2019-12-21] MEDS: PANTOPRAZOLE 40MG VIAL (C9113 PER 1) IV SCH ×2 (07:38→20:58)
[2019-12-21 08:29] LABS: BASO % 0.6 % (0.0-1.0); EOS # 0.3 10^3/uL (0.0-0.5); EOS % 4.2 % (0.0-3.0); HEMATOCRIT 34.7 % (42.0-52.0); HEMOGLOBIN 10.8 g/dl (13.5-17.5); LYMPH % 15.2 % (24.0-44.0); MEAN CORPUSCULAR HEMOGLOBIN 31.1 pg (27.0-33.0); MEAN CORPUSCULAR HGB CONC 31.1 g/dl (32.0-36.5); MONO # 0.7 10^3/uL (0.0-0.8); MONO % 10.4 % (0.0-5.0); NEUTROPHILS # 4.3 10^3/uL (1.5-8.5); NEUTROPHILS % 68.6 % (36.0-66.0); PLATELET COUNT, AUTOMATED 321 10^3/uL (150-450); RED BLOOD COUNT 3.47 10^6/uL (4.30-6.10); WHITE BLOOD COUNT 6.3 10^3/uL (4.0-10.0)
[2019-12-21 08:56] LABS: BLOOD UREA NITROGEN 9 MG/DL (7-18); CALCIUM LEVEL 8.9 MG/DL (8.8-10.2); CARBON DIOXIDE LEVEL 26 MEQ/L (21-32); CHLORIDE LEVEL 107 MEQ/L (98-107); CREATININE FOR GFR 1.08 MG/DL (0.70-1.30); GLOMERULAR FILTRATION RATE > 60.0 (>42); GLUCOSE, FASTING 89 MG/DL (70-100); POTASSIUM SERUM 4.6 MEQ/L (3.5-5.1); SODIUM LEVEL 140 MEQ/L (136-145)
[2019-12-21] MEDS: traMADol 50 MG TAB PO SCH ×3 (09:00→20:59)
--- NOTE | 2019-12-21 10:27 | IPN ---
DATE: 12/20/2019 HISTORY: The patient had undergone a lysis of adhesions and small bowel resection back on December 05 for a recurrent obstruction with an interloop abscess. He was discharged on December 16, but readmitted on the . Today, he reports that he is actually feeling pretty good. He continues to eat and denies any nausea or vomiting. He does complain of some discomfort in his left lower quadrant. Vital signs show that he has been afebrile over the past 24 hours. His pulse is in the 50s and 60s. Blood pressure is good and his room air oxygen saturation is normal. Intake and output shows that yesterday he had 2900 in with 1600 urine measured and recorded. He was noted to have one incontinent bowel movement. PHYSICAL EXAMINATION: The patient is lying quietly in bed. He looks quite comfortable. Abdomen seems less distended today. He does have active bowel sounds. The abdomen is a little less full and softer. He does have a little fullness in his left lower quadrant with some mild tenderness in this area. His incisions all are clean and healing well. LABORATORY STUDIES: Show a white count of 6, hemoglobin 10, hematocrit of 33 and a platelet count of 316,000. Differential count shows 68% neutrophils, 16% lymphocytes and 11% monocytes. His chemistry profile showed normal electrolytes, BUN, creatinine and glucose. IMPRESSION: The patient appears to be doing well at this point following transfusion. He has received a total of 2 units of packed red blood cells. He has no evidence of significant ongoing bleeding. His abdomen appears to have decompressed somewhat further and the abdomen is soft and he is having bowel function. RECOMMENDATIONS: At this point, I would continue with physical therapy. The patient may be a reasonable candidate for acute inpatient rehabilitation, but I will leave that to the discretion of the hospitalist. I would not recommend any further studies at this point. SERENA
[2019-12-21 14:00] VITALS: BP 143/63
--- NOTE | 2019-12-21 14:21 | IPNPDOC ---
Text Note Date of Service The patient was seen on 12/21/19. NOTE General: Pt feeling better. Had BM yesterday. Tolerating clears. No CP/SOB/p alpitations. Objective Physical Examination General Exam: Positive: Alert, Cooperative, No Acute Distress Eye Exam: Positive: PERRLA, Conjunctiva & lids normal, EOMI; Negative: Sclera icteric ENT Exam: Positive: Atraumatic, Mucous membr. moist/pink, Pharynx Normal Neck Exam: Positive: Supple; Negative: JVD, thyromegaly Chest Exam: Positive: Clear to auscultation, Normal air movement Heart Exam: Positive: Rate Normal, Regular Rhythm, Normal S1, Normal S2; Abdomen Exam: Positive: BS noted, Soft, Nontender. Mildly distended.steristrips intact. Extremity Exam: Negative: Clubbing, Cyanosis, Edema Skin Exam: Positive: Nl turgor and temperature; Assessment /Plan Assessment Patient is a 79-year-old male with PMH of hypertesion, HLD, Parkinsons, BPH who just had a two recent hospitalization for SBO one from 11/20/19 to 11/27/19 and another from 12/03/19 to 12/17/19. During the first hospitalization with small bowel obstruction he required robotic lysis of adhesions and had an enterotomy. During the second hospitalization conservative measures were attempted, however he was not progressing, therefore he had a laparoscopy with robotic lysis of adhesions converted to laparotomy and 20 to 30 cm resection of small bowel resection for an interloop abscess , adhesions, scarring with small bowel obstruction. After surgery he had a slow recovery with postoperative ileus, he was on a short course of TPN until this resolved and he started eating regular diet. He required several days of physical therapy till he was felt to be close to his baseline functional status and was discharged home yesterday. He comes back today to the ED for extreme weakness, tiredness and inability get out of bed this morning. He also reported that he noticed bright red blood mixed with stool last night without any abdominal pain or diarrhea. Today he did not have any bowel movements. Rectal exam with guaiac in the ED showed soft black heme positive stools. His Hb was 7.9 same as yesterday. Review of chart shows that he has been having hb mostly in the 7.5 to 8.5 range for the last week. Patient was admitted for symptomatic anemia, Possibly from GIB. Acute on chronic blood loss anemia due to GI blood loss Possibly from stress ulceration or gastritis due to his pronged hospitalizations and surgeries in the last 1 month surgical blood loss from anastomosis/ rectal irritation or hemorrhoids/repeated blood draws also adding to the issue will transfuse PRBC monitor pantoprazole iv bid, sucralfate. full liquids. Surgical consult appreciated. Surgical recommended against attempting any endoscopic evaluation at this time. 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 BPH home med Hypertension BP controlled on losartan and amlodipine at home. May not need both medications. will restart amlodipine with hold parameters. Hyperlipidemia hold statin. Parkinsons disease sinemet. DVT prophylaxis: TEDS and seq. Likely to need rehab: PT consulted. VS,Fishbone, I+O VS, Fishbone, I+O Laboratory Tests 12/21/19 08:16 Vital Signs Date Time Temp Pulse Resp B/P (MAP) Pulse Ox O2 Delivery O2 Flow Rate FiO2 12/21/19 08:08 18 Room Air 12/21/19 07:38 61 130/73 12/21/19 06:00 97.6 93 I&O- Last 24 Hours up to 6 AM 12/21/19 06:00 Intake Total 2320 ml Output Total 1705 ml Balance 615 ml GALLITO BROWN MD Dec 21, 2019 14:21
[2019-12-21 20:43] VITALS: BP 155/72
[2019-12-21] MEDS: AMITRIPTYLINE 50 MG TAB PO SCH (20:58)
[2019-12-22 05:17] VITALS: BP 165/77
[2019-12-22 07:59] LABS: BASO % 0.7 % (0.0-1.0); EOS # 0.3 10^3/uL (0.0-0.5); EOS % 4.8 % (0.0-3.0); HEMATOCRIT 33.2 % (42.0-52.0); HEMOGLOBIN 10.4 g/dl (13.5-17.5); LYMPH # 0.9 10^3/uL (1.5-5.0); LYMPH % 15.6 % (24.0-44.0); MEAN CORPUSCULAR HEMOGLOBIN 31.3 pg (27.0-33.0); MEAN CORPUSCULAR HGB CONC 31.3 g/dl (32.0-36.5); MONO # 0.7 10^3/uL (0.0-0.8); MONO % 11.7 % (0.0-5.0); NEUTROPHILS # 3.9 10^3/uL (1.5-8.5); NEUTROPHILS % 66.7 % (36.0-66.0); PLATELET COUNT, AUTOMATED 308 10^3/uL (150-450); RED BLOOD COUNT 3.32 10^6/uL (4.30-6.10); WHITE BLOOD COUNT 5.9 10^3/uL (4.0-10.0)
[2019-12-22] MEDS: PANTOPRAZOLE 40MG VIAL (C9113 PER 1) IV SCH (08:37)
[2019-12-22] MEDS: SUCRALFATE SUSP 1GM/10ML UD PO SCH ×4 (08:38→20:55)
[2019-12-22] MEDS: FINASTERIDE 5 MG TAB PO SCH (08:38)
[2019-12-22] MEDS: traMADol 50 MG TAB PO SCH ×3 (08:38→20:55)
[2019-12-22] MEDS: SINEMET 25-100 MG TAB PO SCH ×2 (08:38→20:55)
[2019-12-22] MEDS: amLODIPine 5 MG TAB PO SCH ×2 (08:38→20:54)
[2019-12-22 10:20] LABS: BLOOD UREA NITROGEN 7 MG/DL (7-18); CARBON DIOXIDE LEVEL 26 MEQ/L (21-32); CHLORIDE LEVEL 105 MEQ/L (98-107); CREATININE FOR GFR 0.96 MG/DL (0.70-1.30); GLOMERULAR FILTRATION RATE > 60.0 (>42); GLUCOSE, FASTING 77 MG/DL (70-100); POTASSIUM SERUM 4.3 MEQ/L (3.5-5.1); SODIUM LEVEL 139 MEQ/L (136-145)
[2019-12-22] MEDS ORDERED: SUCR1ORA PO (13:37)
[2019-12-22] MEDS ORDERED: PROT1TAB2 PO (13:37)
[2019-12-22] MEDS ORDERED: LOSA50TA88 PO (13:37)
[2019-12-22] MEDS ORDERED: LOSARTAN 50MG TABLET PO ONE (14:00)
--- NOTE | 2019-12-22 14:15 | IPNPDOC ---
Text Note Date of Service The patient was seen on 12/22/19. NOTE General: Pt feeling better. Pt advanced to regular diet and tolerating. No CP /SOB/palpitations. Objective Physical Examination General Exam: Positive: Alert, Cooperative, No Acute Distress Eye Exam: Positive: PERRLA, Conjunctiva & lids normal, EOMI; Negative: Sclera icteric ENT Exam: Positive: Atraumatic, Mucous membr. moist/pink, Pharynx Normal Neck Exam: Positive: Supple; Negative: JVD, thyromegaly Chest Exam: Positive: Clear to auscultation, Normal air movement Heart Exam: Positive: Rate Normal, Regular Rhythm, Normal S1, Normal S2; Abdomen Exam: Positive: BS noted, Soft, Nontender. Mildly distended.steristrips intact. Extremity Exam: Negative: Clubbing, Cyanosis, Edema Skin Exam: Positive: Nl turgor and temperature; Assessment /Plan Assessment Patient is a 79-year-old male with PMH of hypertesion, HLD, Parkinsons, BPH who just had a two recent hospitalization for SBO one from 11/20/19 to 11/27/19 and another from 12/03/19 to 12/17/19. During the first hospitalization with small bowel obstruction he required robotic lysis of adhesions and had an enterotomy. During the second hospitalization conservative measures were attempted, however he was not progressing, therefore he had a laparoscopy with robotic lysis of adhesions converted to laparotomy and 20 to 30 cm resection of small bowel resection for an interloop abscess , adhesions, scarring with small bowel obstruction. After surgery he had a slow recovery with postoperative ileus, he was on a short course of TPN until this resolved and he started eating regular diet. He required several days of physical therapy till he was felt to be close to his baseline functional status and was discharged home yesterday. He comes back today to the ED for extreme weakness, tiredness and inability get out of bed this morning. He also reported that he noticed bright red blood mixed with stool last night without any abdominal pain or diarrhea. Today he did not have any bowel movements. Rectal exam with guaiac in the ED showed soft black heme positive stools. His Hb was 7.9 same as yesterday. Review of chart shows that he has been having hb mostly in the 7.5 to 8.5 range for the last week. Patient was admitted for symptomatic anemia, Possibly from GIB. Acute on chronic blood loss anemia due to GI blood loss Possibly from stress ulceration or gastritis due to his pronged hospitalizations and surgeries in the last 1 month surgical blood loss from anastomosis/ rectal irritation or hemorrhoids/repeated blood draws also adding to the issue will transfuse PRBC monitor pantoprazole iv bid, sucralfate. full liquids. Surgical consult appreciated. Surgical recommended against attempting any endoscopic evaluation at this time. - Advance diet as tolerated; advance to regular diet. 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 BPH home med Hypertension BP controlled on losartan and amlodipine at home. May not need both medications. will restart amlodipine with hold parameters. Hyperlipidemia hold statin. Parkinsons disease sinemet. DVT prophylaxis: TEDS and seq. PT consulted; recc rehab. VS,Fishbone, I+O VS, Fishbone, I+O Laboratory Tests 12/22/19 07:38 Vital Signs Date Time Temp Pulse Resp B/P (MAP) Pulse Ox O2 Delivery O2 Flow Rate FiO2 12/22/19 08:38 57 165/77 12/22/19 08:38 16 12/22/19 05:17 98.2 96 Room Air I&O- Last 24 Hours up to 6 AM 12/22/19 06:00 Intake Total 1920 ml Output Total 2150 ml Balance -230 ml GALLITO BROWN MD Dec 22, 2019 14:15
[2019-12-22 14:45] VITALS: BP 129/62
[2019-12-22] MEDS: AMITRIPTYLINE 50 MG TAB PO SCH (20:55)
[2019-12-22] MEDS: PANTOPRAZOLE 40MG TAB (PROTONIX) PO SCH (20:55)
[2019-12-22 22:00] VITALS: BP 137/64
[2019-12-23 06:00] VITALS: BP 130/63
[2019-12-23 06:44] LABS: BASO % 0.5 % (0.0-1.0); EOS # 0.2 10^3/uL (0.0-0.5); HEMOGLOBIN 10.6 g/dl (13.5-17.5); LYMPH # 0.9 10^3/uL (1.5-5.0); LYMPH % 15.5 % (24.0-44.0); MEAN CORPUSCULAR HEMOGLOBIN 32.3 pg (27.0-33.0); MEAN CORPUSCULAR HGB CONC 32.1 g/dl (32.0-36.5); MEAN CORPUSCULAR VOLUME 100.6 fl (80.0-96.0); MONO # 0.7 10^3/uL (0.0-0.8); MONO % 11.7 % (0.0-5.0); NEUTROPHILS # 3.8 10^3/uL (1.5-8.5); NEUTROPHILS % 67.8 % (36.0-66.0); PLATELET COUNT, AUTOMATED 290 10^3/uL (150-450); RED BLOOD COUNT 3.28 10^6/uL (4.30-6.10); WHITE BLOOD COUNT 5.5 10^3/uL (4.0-10.0)
[2019-12-23 07:26] LABS: CARBON DIOXIDE LEVEL 32 MEQ/L (21-32); CHLORIDE LEVEL 103 MEQ/L (98-107); CREATININE FOR GFR 1.17 MG/DL (0.70-1.30); GLOMERULAR FILTRATION RATE > 60.0 (>42); GLUCOSE, FASTING 87 MG/DL (70-100); POTASSIUM SERUM 4.4 MEQ/L (3.5-5.1); SODIUM LEVEL 140 MEQ/L (136-145)
[2019-12-23 07:27] LABS: BLOOD UREA NITROGEN 13 MG/DL (7-18)
[2019-12-23] MEDS: FINASTERIDE 5 MG TAB PO SCH (08:12)
[2019-12-23] MEDS: PANTOPRAZOLE 40MG TAB (PROTONIX) PO SCH ×2 (08:12→21:04)
[2019-12-23] MEDS: traMADol 50 MG TAB PO SCH ×3 (08:12→21:07)
[2019-12-23] MEDS: SUCRALFATE SUSP 1GM/10ML UD PO SCH ×4 (08:12→21:07)
[2019-12-23] MEDS: SINEMET 25-100 MG TAB PO SCH ×2 (08:12→21:04)
[2019-12-23] MEDS: amLODIPine 5 MG TAB PO SCH ×2 (08:13→21:00)
--- NOTE | 2019-12-23 09:01 | IPN ---
DATE: 12/22/2019 HISTORY: The patient had undergone a laparoscopy and laparotomy with small bowel resection and drainage of an interloop abscess back on 12/06/2019. This was for a recurrent small bowel obstruction. He was discharged home subsequently, but returned feeling quite weak. He was found to be more anemic and received a transfusion after admission. He has been tolerating a diet well. His abdomen remains somewhat distended but less so than it had been and he appears to be having adequate bowel function and intake. He reports no pain today. Vital signs show that he has been afebrile. His pulse is in the 50s to 60s and his blood pressure is good. Intake and output show that yesterday he had 1900 in with 2100 out. PHYSICAL EXAMINATION: The patient is sitting up in a chair at the bedside when I entered. He is alert and appears comfortable. Sclerae are anicteric. His mucous membranes are moist. Heart and lung exams are unremarkable, though his breath sounds are somewhat distant. The abdomen remains somewhat distended, but he has bowel sounds present and the abdomen is soft and without significant tenderness. Laboratory studies show that today he had a white count of 6, hemoglobin 10, hematocrit 33, and a platelet count of 308,000 which is very stable over the last 3 days. Chemistry profile showed normal electrolytes, BUN, creatinine, and glucose. IMPRESSION: The patient is doing very well and tolerating a diet without difficulty. Though his abdomen remains somewhat distended his bowel function appears adequate. RECOMMENDATIONS: At this point, I believe the patient could be discharged whenever his strength and stamina are felt to be adequate for him to do well at home. He should followup in my office about 2 weeks after his discharge.
--- NOTE | 2019-12-23 11:38 | IPNPDOC ---
Text Note Date of Service The patient was seen on 12/23/19. NOTE General: Pt feeling better. Pt advanced to regular diet and tolerating. No CP /SOB/palpitations. Objective Physical Examination General Exam: Positive: Alert, Cooperative, No Acute Distress Eye Exam: Positive: PERRLA, Conjunctiva & lids normal, EOMI; Negative: Sclera icteric ENT Exam: Positive: Atraumatic, Mucous membr. moist/pink, Pharynx Normal Neck Exam: Positive: Supple; Negative: JVD, thyromegaly Chest Exam: Positive: Clear to auscultation, Normal air movement Heart Exam: Positive: Rate Normal, Regular Rhythm, Normal S1, Normal S2; Abdomen Exam: Positive: BS noted, Soft, Nontender. Mildly distended.steristrips intact. Extremity Exam: Negative: Clubbing, Cyanosis, Edema Skin Exam: Positive: Nl turgor and temperature; Assessment /Plan Assessment Patient is a 79-year-old male with PMH of hypertesion, HLD, Parkinsons, BPH who just had a two recent hospitalization for SBO one from 11/20/19 to 11/27/19 and another from 12/03/19 to 12/17/19. During the first hospitalization with small bowel obstruction he required robotic lysis of adhesions and had an enterotomy. During the second hospitalization conservative measures were attempted, however he was not progressing, therefore he had a laparoscopy with robotic lysis of adhesions converted to laparotomy and 20 to 30 cm resection of small bowel resection for an interloop abscess , adhesions, scarring with small bowel obstruction. After surgery he had a slow recovery with postoperative ileus, he was on a short course of TPN until this resolved and he started eating regular diet. He required several days of physical therapy till he was felt to be close to his baseline functional status and was discharged home yesterday. He comes back today to the ED for extreme weakness, tiredness and inability get out of bed this morning. He also reported that he noticed bright red blood mixed with stool last night without any abdominal pain or diarrhea. Today he did not have any bowel movements. Rectal exam with guaiac in the ED showed soft black heme positive stools. His Hb was 7.9 same as yesterday. Review of chart shows that he has been having hb mostly in the 7.5 to 8.5 range for the last week. Patient was admitted for symptomatic anemia, Possibly from GIB. Acute on chronic blood loss anemia due to GI blood loss Possibly from stress ulceration or gastritis due to his pronged hospitalizations and surgeries in the last 1 month surgical blood loss from anastomosis/ rectal irritation or hemorrhoids/repeated blood draws also adding to the issue will transfuse PRBC monitor pantoprazole iv bid, sucralfate. full liquids. Surgical consult appreciated. Surgical recommended against attempting any endoscopic evaluation at this time. - Advance diet as tolerated; advance to regular diet. 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 BPH home med Hypertension BP controlled on losartan and amlodipine at home. May not need both medications. will restart amlodipine with hold parameters. Hyperlipidemia hold statin. Parkinsons disease sinemet. DVT prophylaxis: TEDS and seq. PT consulted; recc rehab for now unless strength improves. F/u final recc. VS,Fishbone, I+O VS, Fishbone, I+O Laboratory Tests 12/23/19 06:19 Vital Signs Date Time Temp Pulse Resp B/P (MAP) Pulse Ox O2 Delivery O2 Flow Rate FiO2 12/23/19 08:13 55 130/63 12/23/19 08:12 16 12/23/19 06:00 97.9 93 Room Air I&O- Last 24 Hours up to 6 AM 12/23/19 05:59 Intake Total 420 ml Output Total 1775 ml Balance -1355 ml GALLITO BROWN MD Dec 23, 2019 11:38
[2019-12-23 14:00] VITALS: BP 132/62
[2019-12-23] MEDS: AMITRIPTYLINE 50 MG TAB PO SCH (21:04)
[2019-12-23] MEDS: MIRALAX *UNIT DOSE* 17GM PACKET PO SCH (21:48)
[2019-12-23 22:00] VITALS: BP 135/63
[2019-12-24 06:00] VITALS: BP 144/68
[2019-12-24 06:28] LABS: BASO # 0.1 10^3/uL (0.0-0.2); BASO % 0.9 % (0.0-1.0); EOS # 0.2 10^3/uL (0.0-0.5); EOS % 4.3 % (0.0-3.0); HEMATOCRIT 32.4 % (42.0-52.0); LYMPH # 1.1 10^3/uL (1.5-5.0); LYMPH % 19.7 % (24.0-44.0); MEAN CORPUSCULAR HEMOGLOBIN 31.1 pg (27.0-33.0); MEAN CORPUSCULAR HGB CONC 30.9 g/dl (32.0-36.5); MEAN CORPUSCULAR VOLUME 100.6 fl (80.0-96.0); MONO # 0.7 10^3/uL (0.0-0.8); MONO % 12.9 % (0.0-5.0); NEUTROPHILS # 3.5 10^3/uL (1.5-8.5); NEUTROPHILS % 61.8 % (36.0-66.0); PLATELET COUNT, AUTOMATED 279 10^3/uL (150-450); RED BLOOD COUNT 3.22 10^6/uL (4.30-6.10); WHITE BLOOD COUNT 5.6 10^3/uL (4.0-10.0)
[2019-12-24 06:44] LABS: BLOOD UREA NITROGEN 17 MG/DL (7-18); CALCIUM LEVEL 8.5 MG/DL (8.8-10.2); CARBON DIOXIDE LEVEL 29 MEQ/L (21-32); CHLORIDE LEVEL 102 MEQ/L (98-107); CREATININE FOR GFR 1.12 MG/DL (0.70-1.30); GLOMERULAR FILTRATION RATE > 60.0 (>42); GLUCOSE, FASTING 99 MG/DL (70-100); POTASSIUM SERUM 4.3 MEQ/L (3.5-5.1); SODIUM LEVEL 137 MEQ/L (136-145)
[2019-12-24] MEDS: SUCRALFATE SUSP 1GM/10ML UD PO SCH ×4 (08:25→21:11)
[2019-12-24] MEDS: FINASTERIDE 5 MG TAB PO SCH (08:25)
[2019-12-24] MEDS: traMADol 50 MG TAB PO SCH ×3 (08:26→21:12)
[2019-12-24] MEDS: SINEMET 25-100 MG TAB PO SCH ×2 (08:26→21:11)
[2019-12-24] MEDS: PANTOPRAZOLE 40MG TAB (PROTONIX) PO SCH ×2 (08:27→21:11)
[2019-12-24] MEDS: amLODIPine 5 MG TAB PO SCH ×2 (08:27→21:00)
[2019-12-24 14:00] VITALS: BP 158/72
[2019-12-24] MEDS: SENOKOT S TAB PO PRN (15:11)
[2019-12-24 21:10] VITALS: BP 109/68
[2019-12-24] MEDS: AMITRIPTYLINE 50 MG TAB PO SCH (21:11)
[2019-12-24] MEDS: MIRALAX *UNIT DOSE* 17GM PACKET PO SCH (21:11)
[2019-12-25 06:00] VITALS: BP 138/79
[2019-12-25 06:44] LABS: BASO % 0.6 % (0.0-1.0); EOS # 0.3 10^3/uL (0.0-0.5); EOS % 4.1 % (0.0-3.0); HEMATOCRIT 37.8 % (42.0-52.0); HEMOGLOBIN 11.6 g/dl (13.5-17.5); LYMPH % 14.7 % (24.0-44.0); MEAN CORPUSCULAR HEMOGLOBIN 30.9 pg (27.0-33.0); MEAN CORPUSCULAR HGB CONC 30.7 g/dl (32.0-36.5); MEAN CORPUSCULAR VOLUME 100.8 fl (80.0-96.0); MONO # 0.8 10^3/uL (0.0-0.8); MONO % 11.1 % (0.0-5.0); NEUTROPHILS # 4.7 10^3/uL (1.5-8.5); NEUTROPHILS % 68.9 % (36.0-66.0); PLATELET COUNT, AUTOMATED 286 10^3/uL (150-450); RED BLOOD COUNT 3.75 10^6/uL (4.30-6.10); WHITE BLOOD COUNT 6.9 10^3/uL (4.0-10.0)
[2019-12-25 07:09] LABS: BLOOD UREA NITROGEN 20 MG/DL (7-18); CARBON DIOXIDE LEVEL 31 MEQ/L (21-32); CHLORIDE LEVEL 103 MEQ/L (98-107); CREATININE FOR GFR 1.21 MG/DL (0.70-1.30); GLOMERULAR FILTRATION RATE > 60.0 (>42); GLUCOSE, FASTING 102 MG/DL (70-100); POTASSIUM SERUM 4.5 MEQ/L (3.5-5.1); SODIUM LEVEL 138 MEQ/L (136-145)
[2019-12-25] MEDS: SUCRALFATE SUSP 1GM/10ML UD PO SCH ×4 (08:15→21:00)
[2019-12-25] MEDS: SINEMET 25-100 MG TAB PO SCH ×2 (08:15→21:01)
[2019-12-25] MEDS: traMADol 50 MG TAB PO SCH ×3 (08:15→21:01)
[2019-12-25] MEDS: PANTOPRAZOLE 40MG TAB (PROTONIX) PO SCH ×2 (08:15→21:01)
[2019-12-25] MEDS: amLODIPine 5 MG TAB PO SCH ×2 (08:16→21:00)
[2019-12-25] MEDS: FINASTERIDE 5 MG TAB PO SCH (08:16)
[2019-12-25] MEDS: SENOKOT S TAB PO PRN (10:28)
[2019-12-25] MEDS: MOM 30ML SUSPENSION UDC PO SCH (10:28)
[2019-12-25] MEDS ORDERED: MAGNESIUM CITRATE 300 ML BTL PO ONE (16:00)
[2019-12-25] MEDS ORDERED: MAGNESIUM CITRATE 300 ML BTL PO PRN (18:00)
--- NOTE | 2019-12-25 20:03 | IPNPDOC ---
Subjective Date Seen The patient was seen on 12/25/19. Subjective Chief Complaint/HPI Patient reports that he has not had a bowel movement for 4 to 5 days and he is feeling distended. He has been eating well. No abdominal pain. Has been working with physical therapy and feels that he is slowly getting stronger. Objective Physical Examination General Exam: Positive: Alert, Cooperative, No Acute Distress Eye Exam: Positive: PERRLA, Conjunctiva & lids normal, EOMI; Negative: Sclera icteric ENT Exam: Positive: Atraumatic, Mucous membr. moist/pink, Pharynx Normal Neck Exam: Positive: Supple; Negative: JVD, thyromegaly Chest Exam: Positive: Clear to auscultation, Normal air movement Heart Exam: Positive: Rate Normal, Regular Rhythm, Normal S1, Normal S2; Negative: Murmurs, Rubs Abdomen Exam: Positive: BS Hyperactive, Soft, Other (distended.); Negative: Hepatospenomegaly Extremity Exam: Negative: Clubbing, Cyanosis, Edema Skin Exam: Positive: Nl turgor and temperature; Negative: Breakdown, Lesion Assessment /Plan Assessment Patient is a 79-year-old male with PMH of hypertesion, HLD, Parkinsons, BPH who just had a two recent hospitalization for SBO one from 11/20/19 to 11/27/19 and another from 12/03/19 to 12/17/19. During the first hospitalization with small bowel obstruction he required robotic lysis of adhesions and had an enterotomy. During the second hospitalization conservative measures were attempted, however he was not progressing, therefore he had a laparoscopy with robotic lysis of adhesions converted to laparotomy and 20 to 30 cm resection of small bowel resection for an interloop abscess , adhesions, scarring with small bowel obstruction. After surgery he had a slow recovery with postoperative ileus, he was on a short course of TPN until this resolved and he started eating regular diet. He required several days of physical therapy till he was felt to be close to his baseline functional status and was discharged home yesterday. He comes back today to the ED for extreme weakness, tiredness and inability get out of bed this morning. He also reported that he noticed bright red blood mixed with stool last night without any abdominal pain or diarrhea. Today he did not have any bowel movements. Rectal exam with guaiac in the ED showed soft black heme positive stools. Review of chart showed that he has been having hb mostly in the 7.5 to 8.5 range. Patient was admitted for symptomatic anemia, Possibly from GIB. Chronic Constipation due to chronic opiate use aggressive bowel regimen. received senna, colace, MOM today no result give mag citrate 300 ml in the pm. Acute on chronic blood loss anemia/ iron def due to GI blood loss Possibly from stress ulceration or gastritis due to his pronged hospitalizations and surgeries in the last 1 month surgical blood loss from anastomosis/ rectal irritation or hemorrhoids/repeated blood draws also adding to the issue HH stable Received PRBC x 2 pantoprazole daily sucralfate. Surgical consult appreciated. Surgical recommended against attempting any endoscopic evaluation at this time. Recent h/o recurrent SBOs and an interloop abscess due to adhesions with 2 surgeries in the last month avoid constipation on aggressive bowel regimen. BPH s/p TURP home meds finasteride and alfazusin Hypertension BP controlled with amlodipine only dced losartan as bp was low with both. Hyperlipidemia hold statin. Parkinsons disease sinemet. 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 GRADE 1 DIASTOLIC DYSFUNCTION B12 DEFICIENCY Plan/VTE VTE Prophylaxis Ordered?: Yes VS, I&O, [facility] Vital Signs/I&O Vital Signs Date Time Temp Pulse Resp B/P (MAP) Pulse Ox O2 Delivery O2 Flow Rate FiO2 12/25/19 16:51 16 12/25/19 08:16 80 138/79 12/25/19 06:00 98.2 95 Room Air I&O- Last 24 Hours up to 6 AM0 12/25/19 07:00 Intake Total 2510 ml Output Total 1995 ml Balance 515 ml Laboratory Data 24H LABS Laboratory Tests 2 12/25/19 06:16: Immature Granulocyte % (Auto) 0.6, Neutrophils (%) (Auto) 68.9H, Lymphocytes (%) (Auto) 14.7L, Monocytes (%) (Auto) 11.1H, Eosinophils (%) (Auto) 4.1H, Basophils (%) (Auto) 0.6, Neutrophils # (Auto) 4.7, Lymphocytes # (Auto) 1.0L, Monocytes # (Auto) 0.8, Eosinophils # (Auto) 0.3, Basophils # (Auto) 0.0, Nucleated Red Blood Cells % (auto) 0.0, Anion Gap 4L, Glomerular Filtration Rate > 60.0, Calcium Level 9.0 CBC/BMP Laboratory Tests 12/25/19 06:16 Microbiology Microbiology 12/18/19 Blood Culture - Final, Complete NO GROWTH AFTER 5 DAYS 12/18/19 Blood Culture - Final, Complete NO GROWTH AFTER 5 DAYS LEONELA CONTRERAS MD Dec 25, 2019 20:03
[2019-12-25] MEDS: AMITRIPTYLINE 50 MG TAB PO SCH (21:01)
[2019-12-25] MEDS: MIRALAX *UNIT DOSE* 17GM PACKET PO SCH (21:01)
[2019-12-26] MEDS: SENOKOT S TAB PO PRN (05:11)
[2019-12-26 06:00] VITALS: BP 142/86
[2019-12-26 06:13] LABS: BASO % 0.6 % (0.0-1.0); EOS # 0.3 10^3/uL (0.0-0.5); EOS % 3.8 % (0.0-3.0); HEMATOCRIT 35.8 % (42.0-52.0); HEMOGLOBIN 11.1 g/dl (13.5-17.5); LYMPH # 0.8 10^3/uL (1.5-5.0); LYMPH % 11.4 % (24.0-44.0); MEAN CORPUSCULAR HEMOGLOBIN 31.3 pg (27.0-33.0); MEAN CORPUSCULAR VOLUME 100.8 fl (80.0-96.0); MONO # 0.9 10^3/uL (0.0-0.8); MONO % 12.3 % (0.0-5.0); NEUTROPHILS % 71.5 % (36.0-66.0); PLATELET COUNT, AUTOMATED 269 10^3/uL (150-450); RED BLOOD COUNT 3.55 10^6/uL (4.30-6.10); WHITE BLOOD COUNT 6.9 10^3/uL (4.0-10.0)
[2019-12-26 06:37] LABS: BLOOD UREA NITROGEN 23 MG/DL (7-18); CALCIUM LEVEL 8.9 MG/DL (8.8-10.2); CARBON DIOXIDE LEVEL 33 MEQ/L (21-32); CHLORIDE LEVEL 101 MEQ/L (98-107); CREATININE FOR GFR 1.15 MG/DL (0.70-1.30); GLOMERULAR FILTRATION RATE > 60.0 (>42); GLUCOSE, FASTING 98 MG/DL (70-100); POTASSIUM SERUM 4.8 MEQ/L (3.5-5.1); SODIUM LEVEL 138 MEQ/L (136-145)
[2019-12-26] MEDS ORDERED: BISACODYL 10 MG SUPP PR STA (07:37)
[2019-12-26] MEDS ORDERED: FLEET ENEMA PR ONE (07:45)
[2019-12-26] MEDS: MOM 30ML SUSPENSION UDC PO SCH (08:00)
[2019-12-26] MEDS: SUCRALFATE SUSP 1GM/10ML UD PO SCH (08:00)
[2019-12-26] MEDS: FINASTERIDE 5 MG TAB PO SCH (08:01)
[2019-12-26] MEDS: traMADol 50 MG TAB PO SCH (08:01)
[2019-12-26] MEDS: PANTOPRAZOLE 40MG TAB (PROTONIX) PO SCH (08:02)
[2019-12-26] MEDS: SINEMET 25-100 MG TAB PO SCH (08:02)
[2019-12-26 08:46] VITALS: BP 142/86
[2019-12-26] MEDS: amLODIPine 5 MG TAB PO SCH (08:46)
--- NOTE | 2019-12-28 21:37 | DS.PDOC ---
Discharge Summary General Date of Admission Dec 18, 2019 at 12:44 Date of Discharge 12/26/19 Discharge Summary PROCEDURES PERFORMED DURING STAY: [None]. DISCHARGE DIAGNOSES: Acute on chronic blood loss anemia GIB Possibly from stress ulceration or gastritis or blood loss from anastomosis/ rectal irritation or hemorrhoids Iron Deficiency Recent h/o recurrent SBOs and an interloop abscess with adhesions and scarring w ith 2 surgeries in the last month Physical deconditioning and gait instability due to prolonged hospitalizations and surgeries. 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 HOSPITAL COURSE: Patient is a 79-year-old male with PMH of hypertension, HLD, Parkinsons, BPH who just had a two recent hospitalization for SBO one from 11/20/19 to 11/27/19 and another from 12/03/19 to 12/17/19. During the first hospitalization with small bowel obstruction he required robotic lysis of adhesions and had an enterotomy. During the second hospitalization conservative measures were attempted, however he was not progressing, therefore he had a laparoscopy with robotic lysis of adhesions converted to laparotomy and 20 to 30 cm resection of small bowel for an interloop abscess, adhesions, scarring causing small bowel obstruction. After surgery he had a slow recovery with postoperative ileus, he was on a short course of TPN until this resolved and he started eating regular diet. He required several days of physical therapy till he was felt to be close to his baseline functional status and was discharged home yesterday. He comes back today to the ED for extreme weakness, tiredness and inability get out of bed this morning. He also reported that he noticed bright red blood mixed with stool last night without any abdominal pain or diarrhea. Today he did not have any bowel movements. Rectal exam with guaiac in the ED showed soft black heme positive stools. Review of chart showed that he has been having hb mostly in the 7.5 to 8.5 range. Patient was admitted for symptomatic anemia, Possibly from GIB. He was transfused with improvement of his weakness. Was evaluated by surgery and advised against any intervention at present due to fresh anastomosis. He was evaluated by PT and they recommended continued rehab. Patient also has chronic constipation and is on multiple bowel meds daily. Brie was dischrged to sub acute rehab in a stable condition. Chronic Constipation due to chronic opiate use aggressive bowel regimen. Acute on chronic blood loss anemia/ iron def due to GI blood loss Possibly from stress ulceration or gastritis due to his pronged hospitalizations and surgeries in the last 1 month surgical blood loss from anastomosis/ rectal irritation or hemorrhoids/repeated blood draws also adding to the issue HH stable Received PRBC x 2 pantoprazole daily sucralfate. Surgical consult appreciated. Surgery recommended against attempting any endoscopic evaluation at this time. Recent h/o recurrent SBOs and an interloop abscess due to adhesions with 2 surgeries in the last month avoid constipation on aggressive bowel regimen. BPH s/p TURP home meds finasteride and alfazusin Hypertension BP controlled with amlodipine only dced losartan as bp was low with both. Hyperlipidemia hold statin. Parkinsons disease sinemet. 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 ALLERGIES: Please see below. PHYSICAL EXAMINATION ON DISCHARGE: VITAL SIGNS: Please see below. General Exam: Positive: Alert, Cooperative, No Acute Distress Eye Exam: Positive: PERRLA, Conjunctiva & lids normal, EOMI; Negative: Sclera icteric ENT Exam: Positive: Atraumatic, Mucous membr. moist/pink, Pharynx Normal Neck Exam: Positive: Supple; Negative: JVD, thyromegaly Chest Exam: Positive: Clear to auscultation, Normal air movement Heart Exam: Positive: Rate Normal, Regular Rhythm, Normal S1, Normal S2; Negative: Murmurs, Rubs Abdomen Exam: Positive: BS Hyperactive, Soft, Other (distended.); Negative: Hepatosplenomegaly Extremity Exam: Negative: Clubbing, Cyanosis, Edema Skin Exam: Positive: Nl turgor and temperature; Negative: Breakdown, Lesion LABORATORY DATA: Please see below. ACTIVITY: [As tolerated]. DIET: As tolerated DISPOSITION: [facility]. DISCHARGE INSTRUCTIONS: Follow up Surgery prn. DISCHARGE CONDITION: [Stable]. TIME SPENT ON DISCHARGE: 35 minutes. Vital Signs/I&Os Vital Signs Date Time Temp Pulse Resp B/P (MAP) Pulse Ox O2 Delivery O2 Flow Rate FiO2 12/26/19 08:46 79 142/86 12/26/19 08:01 16 12/26/19 06:00 97.9 99 Room Air Microbiology Microbiology 12/18/19 Blood Culture - Final, Complete NO GROWTH AFTER 5 DAYS 12/18/19 Blood Culture - Final, Complete NO GROWTH AFTER 5 DAYS Discharge Medications Scheduled Alfuzosin HCl (Alfuzosin HCl ER) 10 Mg Tab, 10 MG PO DAILY, (Reported) Amitriptyline HCl (Amitriptyline HCl) 50 Mg Tab, 50 MG PO QHS, (Reported) Amlodipine Besylate (Amlodipine Besylate) 5 Mg Tab, 5 MG PO BID, (Reported) Carbidopa/Levodopa (Carbidopa-Levodopa 25-100 Tab) 1 Each Tablet, 1 TAB PO BID, (Reported) Finasteride (Finasteride) 5 Mg Tab, 5 MG PO DAILY, (Reported) Pantoprazole Sodium (Protonix) 40 Mg Tablet.dr, 1 TAB PO DAILY Psyllium Husk (Psyllium Husk) 1 Pow Pow, 1 POW PO DAILY, (Reported) Rosuvastatin Calcium (Rosuvastatin Calcium) 20 Mg Tablet, 20 MG PO QHS, ( Reported) Sennosides/Docusate Sodium (Senexon-S 50-8.6 mg Tablet) 1 Each Tablet, 2 EACH PO BID, (Reported) Sucralfate (Sucralfate) 1 Gm/10 Ml Oral.susp, 1 GM PO ACHS Tramadol HCl (Tramadol HCl) 50 Mg Tab, 50 MG PO TID, (Reported) Scheduled PRN Diphenhydramine HCl (Sominex) 25 Mg Tablet, 50 MG PO QHS PRN for SLEEP, (Reported) Oxycodone HCl/Acetaminophen (Oxycodone-Acetaminophen 5-325) 1 Each Tablet, 1 TAB PO Q8H PRN for PAIN, (Reported) new med, not started yet Polyethylene Glycol 3350 (Miralax) 1 Pow Pow, 17 GM PO DAILY PRN for CONSTIPATION, (Reported) Allergies Coded Allergies: No Known Allergies (Unverified , 09/29/18) LEONELA CONTRERAS MD Dec 28, 2019 21:37
== END 2019-12-26 09:10 | DRG 812 ==
LOC: M ED 08:01 → M ED INP 12:44 → ENRESERV 12:56 → M MS5PR 13:50
PROVIDERS: ADMIT Internal Medicine Nephrology; ATTEND Internal Medicine Nephrology
PROC: 30233N1 Transfusion of Nonautologous Red Blood Cells into Peripheral Vein, Percutaneous Approach (ICD-10-PCS; principal; 2019-12-18)
DX: D62 Acute posthemorrhagic anemia (principal); K92.2 Gastrointestinal hemorrhage, unspecified; G20 Parkinson's disease; I10 Essential (primary) hypertension; Z79.899 Other long term (current) drug therapy; K57.30 Diverticulosis of large intestine without perforation or abscess without bleeding; E78.5 Hyperlipidemia, unspecified; M54.5 Low back pain; M54.2 Cervicalgia; F41.9 Anxiety disorder, unspecified; F32.9 Major depressive disorder, single episode, unspecified; M10.9 Gout, unspecified; E53.8 Deficiency of other specified B group vitamins; K59.00 Constipation, unspecified; K70.0 Alcoholic fatty liver; Z87.891 Personal history of nicotine dependence; N40.0 Benign prostatic hyperplasia without lower urinary tract symptoms

== ENCOUNTER → 2019-12-27 | Outpatient (REF) ==
[~2019-12-27] MED LIST changes: +LOSA50TA88 PO; +OXYC1TAB23 PO; +PROT1TAB2 PO; +SUCR1ORA PO; +[UNRECOGNIZED DRUG - CODE] PO
[2019-12-27 13:49] LABS: HEMATOCRIT 34.2 % (42.0-52.0); HEMOGLOBIN 10.5 g/dl (13.5-17.5); MEAN CORPUSCULAR HEMOGLOBIN 31.2 pg (27.0-33.0); MEAN CORPUSCULAR HGB CONC 30.7 g/dl (32.0-36.5); MEAN CORPUSCULAR VOLUME 101.5 fl (80.0-96.0); PLATELET COUNT, AUTOMATED 286 10^3/uL (150-450); RED BLOOD COUNT 3.37 10^6/uL (4.30-6.10); WHITE BLOOD COUNT 5.9 10^3/uL (4.0-10.0)
[2019-12-27 14:13] LABS: PERCENT SATURATION 13.1 % (19.7-50.0)
[2019-12-27 14:32] LABS: FOLATE 11.6 NG/ML (>5.4)
== END ==
PROVIDERS: ATTEND Internal Medicine
DX: D64.9 Anemia, unspecified (principal)

== ENCOUNTER → 2020-02-11 | Outpatient (CLI) | payer MEDICARE, BC, OTHER ==
[~2020-02-11] MED LIST changes: +AMLO1TAB24 PO; -AMLO5TAB6 PO
[2020-02-11 12:51] LABS: HEMATOCRIT 39.9 % (42.0-52.0); HEMOGLOBIN 12.6 g/dl (13.5-17.5); MEAN CORPUSCULAR HEMOGLOBIN 30.7 pg (27.0-33.0); MEAN CORPUSCULAR HGB CONC 31.6 g/dl (32.0-36.5); MEAN CORPUSCULAR VOLUME 97.3 fl (80.0-96.0); PLATELET COUNT, AUTOMATED 249 10^3/uL (150-450); WHITE BLOOD COUNT 6.4 10^3/uL (4.0-10.0)
[2020-02-11 13:29] LABS: ALBUMIN 3.7 GM/DL (3.2-5.2); ALT/SGPT 9 U/L (12-78); BILIRUBIN,TOTAL 0.5 MG/DL (0.2-1.0); BLOOD UREA NITROGEN 17 MG/DL (7-18); CALCIUM LEVEL 9.1 MG/DL (8.8-10.2); CARBON DIOXIDE LEVEL 30 MEQ/L (21-32); CHLORIDE LEVEL 106 MEQ/L (98-107); CREATININE FOR GFR 1.14 MG/DL (0.70-1.30); FREE T4 0.99 NG/DL (0.76-1.46); GLOMERULAR FILTRATION RATE > 60.0 (>42); GLUCOSE, FASTING 90 MG/DL (70-100); NT-PRO BNP 218 PG/ML (<450); POTASSIUM SERUM 4.3 MEQ/L (3.5-5.1); PTH INTACT 50.3 PG/ML (18.5-88.0); SODIUM LEVEL 140 MEQ/L (136-145); THYROID STIMULATING HORMONE 0.927 uIU/ML (0.358-3.740); TOTAL PROTEIN 7.8 GM/DL (6.4-8.2)
== END ==
LOC: M PLALAB 10:14
PROVIDERS: ATTEND Family Medicine
DX: N18.3 Chronic kidney disease, stage 3 (moderate) (principal); I12.9 Hypertensive chronic kidney disease with stage 1 through stage 4 chronic kidney disease, or unspecified chronic kidney disease

== ENCOUNTER → 2020-04-04 | Outpatient (CLI) | payer MEDICARE, BC, OTHER ==
--- NOTE | 2020-04-04 14:49 | REP ---
INDICATION: ENCOUNTER FOR SCREENING FOR LUNG CA COMPARISON: 10/27/2018 TECHNIQUE: Axial noncontrast images from the thoracic inlet to the upper abdomen using low-dose lung screening technique (LDCT). FINDINGS: Chronic stable bilateral pleuroparenchymal changes with scattered scarring and areas of chronic rounded atelectasis are again noted and essentially unchanged. No acute new consolidation or suspicious nodule/mass lesion identified. Tracheobronchial tree is patent. No pneumothorax. Limited evaluation of the mediastinum demonstrates stable atherosclerotic changes to the thoracic aorta and coronary arteries. Musculoskeletal structures demonstrate chronic changes including Fu rods through the lower thoracic and visualized lumbar spine. IMPRESSION: Lung-RADS category 2 with chronic stable benign findings again noted. No obvious suspicious nodule or mass lesion identified. Management recommendations include annual low-dose CT surveillance. <Electronically signed by Daquan Ruiz > 04/04/20 [id number]
== END ==
LOC: M RAD 13:28
PROVIDERS: ATTEND Family Medicine
DX: Z12.2 Encounter for screening for malignant neoplasm of respiratory organs (principal); Z87.891 Personal history of nicotine dependence; R91.8 Other nonspecific abnormal finding of lung field

== ENCOUNTER → 2020-06-11 | Outpatient (REF) | payer MEDICARE, OTHER ==
[2020-06-11 17:15] LABS: BASO % 0.5 % (0.0-1.0); EOS # 0.2 10^3/uL (0.0-0.5); EOS % 3.2 % (0.0-3.0); HEMATOCRIT 40.9 % (42.0-52.0); HEMOGLOBIN 12.5 g/dl (13.5-17.5); LYMPH # 1.1 10^3/uL (1.5-5.0); LYMPH % 17.8 % (24.0-44.0); MEAN CORPUSCULAR HEMOGLOBIN 30.5 pg (27.0-33.0); MEAN CORPUSCULAR HGB CONC 30.6 g/dl (32.0-36.5); MEAN CORPUSCULAR VOLUME 99.8 fl (80.0-96.0); MONO # 0.7 10^3/uL (0.0-0.8); MONO % 10.6 % (0.0-5.0); NEUTROPHILS # 4.2 10^3/uL (1.5-8.5); NEUTROPHILS % 67.6 % (36.0-66.0); PLATELET COUNT, AUTOMATED 256 10^3/uL (150-450); WHITE BLOOD COUNT 6.2 10^3/uL (4.0-10.0)
[2020-06-11 17:24] LABS: HEMOGLOBIN A1c 5.5 %
[2020-06-11 17:35] LABS: ALBUMIN 3.9 GM/DL (3.2-5.2); ALT/SGPT 8 U/L (12-78); BILIRUBIN,TOTAL 0.7 MG/DL (0.2-1.0); BLOOD UREA NITROGEN 25 MG/DL (7-18); CALCIUM LEVEL 9.4 MG/DL (8.8-10.2); CARBON DIOXIDE LEVEL 29 MEQ/L (21-32); CHLORIDE LEVEL 105 MEQ/L (98-107); CHOLESTEROL LEVEL 378 MG/DL (<200); CHOLESTEROL RISK RATIO 6.196 (<5); CREATININE FOR GFR 1.43 MG/DL (0.70-1.30); FERRITIN 45 NG/ML (26-388); GLOMERULAR FILTRATION RATE 50.9 (>42); GLUCOSE, FASTING 94 MG/DL (70-100); HDL CHOLESTEROL 61 MG/DL (>40); LDL CHOLESTEROL 301 MG/DL (<100); NON-HDL-C 317 MG/DL; POTASSIUM SERUM 5.1 MEQ/L (3.5-5.1); SODIUM LEVEL 138 MEQ/L (136-145); TRIGLYCERIDES LEVEL 81 MG/DL (<150)
[2020-06-12 12:44] LABS: ALBUMIN 4.58 GM/DL (3.29-5.55); ALBUMIN % 57.3 % (55.8-66.1); ALPHA-1-GLOBULIN % 3.6 % (2.9-4.9); ALPHA-1-GLOBULINS 0.29 GM/DL (0.17-0.41); ALPHA-2-GLOBULINS % 9.6 % (7.1-11.8); BETA-1-GLOBULINS % 5.3 % (4.7-7.2); GAMMA GLOBULIN % 19.2 % (11.1-18.8)
[2020-06-12 12:45] LABS: ALPHA-2-GLOBULINS 0.77 GM/DL (0.42-0.99); BETA-1-GLOBULINS 0.42 GM/DL (0.28-0.60); GAMMA GLOBULINS 1.54 GM/DL (0.65-1.58)
[2020-06-17 11:07] LABS: FREE KAPPA LIGHT CHAINS SERUM 52.5 mg/L (3.3-19.4); FREE KAPPA LIGHT CHAINS URINE 124.35 mg/L (0.63-113.79); FREE LAMBDA LIGHT CHAINS SERUM 78.1 mg/L (5.7-26.3); FREE LAMBDA LIGHT CHAINS URINE 48.21 mg/L (0.47-11.77); KAPPA/LAMBDA RATIO SERUM 0.67 (0.26-1.65); KAPPA/LAMBDA RATIO URINE 2.58 (1.03-31.76)
== END ==
LOC: M SFHCPLAZ 15:29
PROVIDERS: ATTEND Family Medicine
DX: E78.2 Mixed hyperlipidemia (principal); R73.01 Impaired fasting glucose; D47.2 Monoclonal gammopathy; I10 Essential (primary) hypertension; K63.5 Polyp of colon
CPT/HCPCS: 36415; 80053; 80061; 82728; 83036; 83883; 84165; 85025; G0463

== ENCOUNTER → 2020-07-11 | Outpatient (REF) | payer MEDICARE, OTHER ==
[2020-07-11 17:08] LABS: BASO % 0.3 % (0.0-1.0); EOS # 0.2 10^3/uL (0.0-0.5); EOS % 2.7 % (0.0-3.0); HEMATOCRIT 38.5 % (42.0-52.0); LYMPH % 14.4 % (24.0-44.0); MEAN CORPUSCULAR HEMOGLOBIN 30.8 pg (27.0-33.0); MEAN CORPUSCULAR HGB CONC 31.2 g/dl (32.0-36.5); MEAN CORPUSCULAR VOLUME 98.7 fl (80.0-96.0); MONO # 0.7 10^3/uL (0.0-0.8); MONO % 10.2 % (0.0-5.0); NEUTROPHILS # 5.2 10^3/uL (1.5-8.5); PLATELET COUNT, AUTOMATED 228 10^3/uL (150-450); WHITE BLOOD COUNT 7.2 10^3/uL (4.0-10.0)
[2020-07-11 17:17] LABS: ALBUMIN 3.6 GM/DL (3.2-5.2); BILIRUBIN,TOTAL 0.4 MG/DL (0.2-1.0); CALCIUM LEVEL 9.4 MG/DL (8.8-10.2); CHOLESTEROL RISK RATIO 5.431 (<5); CREATININE FOR GFR 1.28 MG/DL (0.70-1.30); GLOMERULAR FILTRATION RATE 57.9 (>42); POTASSIUM SERUM 4.5 MEQ/L (3.5-5.1); TOTAL PROTEIN 7.3 GM/DL (6.4-8.2)
[2020-07-11 17:32] LABS: HEMOGLOBIN A1c 5.8 %
== END ==
LOC: M SFHCPLAZ 14:44
PROVIDERS: ATTEND Family Medicine
DX: N18.30 Chronic kidney disease, stage 3 unspecified (principal); R73.01 Impaired fasting glucose; K27.9 Peptic ulcer, site unspecified, unspecified as acute or chronic, without hemorrhage or perforation; Z79.899 Other long term (current) drug therapy
CPT/HCPCS: 36415; 80053; 80061; 82550; 82728; 83036; 85025; 86677; G0463

== ENCOUNTER 2020-09-07 16:57 | Inpatient (IN) | payer MEDICARE, BC, OTHER ==
[~2020-09-07] VITALS: Ht 172.7 cm; Wt 70.2 kg
[~2020-09-07 16:57] MED LIST changes: -PEG1POW PO; +POLY17PO18 PO
--- NOTE | 2020-09-07 17:40 | REPVR ---
PROCEDURE INFORMATION: Exam: CT Head Without Contrast Exam date and time: 09/07/2020 5:04 PM Age: 79 years old Clinical indication: Speech disturbance; Slurred speech TECHNIQUE: Imaging protocol: Computed tomography of the head without contrast. Radiation optimization: All CT scans at this facility use at least one of these dose optimization techniques: automated exposure control; mA and/or kV adjustment per patient size (includes targeted exams where dose is matched to clinical indication); or iterative reconstruction. COMPARISON: No relevant prior studies available. FINDINGS: Brain: The brain demonstrates diffuse volume loss. There is white matter hypodensity most consistent with chronic small vessel ischemic change. No visible evolving territorial infarct. No hemorrhage. Cerebral ventricles: The ventricles are mildly enlarged in keeping with volume loss. Bones/joints: Unremarkable. No acute fracture. Paranasal sinuses: No sinus air-fluid levels. Partial bilateral ethmoid opacity. Retention cyst or polyp in the right sphenoid sinus. Mastoid air cells: Visualized mastoid air cells are well aerated. Vasculature: Intracranial atherosclerosis, in particular moderate calcified plaque of the carotid siphons. Soft tissues: Unremarkable. IMPRESSION: No acute intracranial abnormality seen. Electronically signed by: Ofelia Restrepo On 09/07/2020 17:40:02 PM
[2020-09-07 18:00] LABS: BASO % 0.5 % (0.0-1.0); EOS # 0.2 10^3/uL (0.0-0.5); EOS % 2.8 % (0.0-3.0); HEMATOCRIT 39.1 % (42.0-52.0); HEMOGLOBIN 12.5 g/dl (13.5-17.5); LYMPH % 15.1 % (24.0-44.0); MEAN CORPUSCULAR HEMOGLOBIN 31.4 pg (27.0-33.0); MEAN CORPUSCULAR VOLUME 98.2 fl (80.0-96.0); MONO # 0.8 10^3/uL (0.0-0.8); MONO % 11.8 % (2.0-8.0); NEUTROPHILS # 4.4 10^3/uL (1.5-8.5); NEUTROPHILS % 69.6 % (36.0-66.0); PLATELET COUNT, AUTOMATED 223 10^3/uL (150-450); RED BLOOD COUNT 3.98 10^6/uL (4.30-6.10); WHITE BLOOD COUNT 6.3 10^3/uL (4.0-10.0)
[2020-09-07] MEDS ORDERED: ISOVUE-370 76% 100ML VIAL As Ordered ONE (18:03)
[2020-09-07 18:42] LABS: ALBUMIN 3.6 GM/DL (3.2-5.2); ALT/SGPT 9 U/L (12-78); BILIRUBIN,DIRECT 0.1 MG/DL (0.0-0.2); BILIRUBIN,TOTAL 0.5 MG/DL (0.2-1.0); CK-MB VALUE MASS 3.4 NG/ML (<3.6); CPK CREATINE PHOSPHOKINASE 108 U/L (39-308); ETHYL ALCOHOL (ETHANOL) < 0.003 % (0.000-0.010); MB/CK RELATIVE INDEX 3.15 (< OR =4); THYROID STIMULATING HORMONE 0.503 uIU/ML (0.358-3.740); TOTAL PROTEIN 7.6 GM/DL (6.4-8.2); TROPONIN I < 0.02 NG/ML (< 0.10)
--- NOTE | 2020-09-07 18:45 | REPVR ---
PROCEDURE INFORMATION: Exam: CT Angiography Neck With Contrast Exam date and time: 09/07/2020 6:19 PM Age: 79 years old Clinical indication: Speech disturbance; Slurred speech; Additional info: CVA TECHNIQUE: Imaging protocol: Computed tomography angiography of the neck with intravenous contrast. 3D rendering (Not supervised by radiologist): MIP and/or 3D reconstructed images were created by the technologist. Radiation optimization: All CT scans at this facility use at least one of these dose optimization techniques: automated exposure control; mA and/or kV adjustment per patient size (includes targeted exams where dose is matched to clinical indication); or iterative reconstruction. Contrast material: ISOVUE 370; Contrast volume: 100 ml; Contrast route: INTRAVENOUS (IV); COMPARISON: No relevant prior studies available. FINDINGS: Right common carotid artery: The right common carotid artery demonstrates calcified and noncalcified atherosclerosis causing mild stenosis. Right internal carotid artery: Right carotid bulb noncalcified and calcified plaque causing moderate, 60-65% stenosis. Right external carotid artery: Calcified atherosclerosis at the origin of the right external carotid artery causing mild stenosis. Right vertebral artery: The right vertebral artery is developmentally hypoplastic. Patent. Left common carotid artery: The left common carotid artery demonstrates calcified and noncalcified atherosclerosis causing mild stenosis. Left internal carotid artery: Proximal left ICA calcified atherosclerosis causing mild, approximate 30% stenosis. Left external carotid artery: Proximal left ECA noncalcified plaque does not contribute to stenosis. Left vertebral artery: The left vertebral artery is dominant. Patent. Limitations visualizing the left vertebral artery origin due to motion and beam hardening artifacts. Aorta: There is a bovine aortic arch. Bones/joints: ACDF with partial corpectomies from C3 through C5. The prior ACDF at C5-C6. Severe disc height loss and spondylosis at C6-C7 and C7-T1. Elsewhere, moderate uncovertebral arthropathy. No severe central spinal canal stenosis. Multilevel neural foraminal stenoses. No acute fracture seen. Soft tissues: Normal. No significant soft tissue swelling. IMPRESSION: 1. No acute vascular findings in the neck. 2. Moderate, approximate 60-65% right carotid bulb stenosis. 3. Mild, approximate 30% proximal left ICA stenosis. 4. The vertebral arteries are patent. REFERENCES: NASCET CRITERIA. The degree of internal carotid artery stenosis is based on NASCET criteria. Normal is no stenosis. Mild is less than 50% stenosis. Moderate is 50-69% stenosis. Severe is 70% to 99% stenosis. Total occlusion is no detectable patent lumen. Electronically signed by: Ofelia Restrepo On 09/07/2020 18:45:50 PM
--- NOTE | 2020-09-07 18:51 | REP ---
INDICATION: Altered Mental Status. COMPARISON: Comparison portable chest x-ray December 18, 2019. TECHNIQUE: Portable upright AP chest radiograph. FINDINGS: The patient is rotated somewhat to the left. There is fairly extensive pleuroparenchymal fibrosis at the left base and along the left lateral chest wall. This is felt to be unchanged. There is linear fibrosis in the right base also unchanged. No acute infiltrate is seen. Overall hyperinflation of the lungs is again noted. Heart size is normal.. IMPRESSION: Hyperinflation. Pleuroparenchymal fibrosis left greater than right. No acute infiltrate seen.. <Electronically signed by Ismael Martinez > 09/07/20 [id number]
--- NOTE | 2020-09-07 18:55 | REPVR ---
PROCEDURE INFORMATION: Exam: CT Angiography Head With Contrast Exam date and time: 09/07/2020 6:19 PM Age: 79 years old Clinical indication: Speech disturbance; Slurred speech; Additional info: CVA TECHNIQUE: Imaging protocol: Computed tomography angiography of the head with intravenous contrast. 3D rendering (Not supervised by radiologist): MIP and/or 3D reconstructed images were created by the technologist. Radiation optimization: All CT scans at this facility use at least one of these dose optimization techniques: automated exposure control; mA and/or kV adjustment per patient size (includes targeted exams where dose is matched to clinical indication); or iterative reconstruction. Contrast material: ISOVUE 370; Contrast volume: 100 ml; Contrast route: INTRAVENOUS (IV); COMPARISON: CT Head without contrast 09/07/2020 5:04 PM FINDINGS: ANTERIOR CIRCULATION: Right internal carotid artery: The right ICA demonstrates calcified atherosclerosis which does not contribute to high-grade stenosis. No aneurysm. Right middle cerebral artery: Unremarkable. No occlusion or significant stenosis. No aneurysm. Right anterior cerebral artery: Unremarkable. No occlusion or significant stenosis. No aneurysm. Left internal carotid artery: The left ICA demonstrates calcified atherosclerosis which does not contribute to high-grade stenosis. No aneurysm. Left middle cerebral artery: Unremarkable. No occlusion or significant stenosis. No aneurysm. Left anterior cerebral artery: Unremarkable. No occlusion or significant stenosis. No aneurysm. POSTERIOR CIRCULATION: Right vertebral artery: The right vertebral artery is developmentally hypoplastic. Calcified atherosclerosis causes a severe short-segment stenosis. Left vertebral artery: The left vertebral artery is dominant. Patent. Trace calcified atherosclerosis. Basilar artery: Unremarkable. No occlusion or significant stenosis. No aneurysm. Right posterior cerebral artery: Unremarkable. No occlusion or significant stenosis. No aneurysm. Left posterior cerebral artery: The left posterior cerebral artery demonstrates a critical short-segment stenosis in the distal P3 segment, image 60 series 405. Brain: No definite mass, mass effect, or midline shift. Cerebral ventricles: No ventriculomegaly. Bones/joints: Unremarkable. No acute fracture. Soft tissues: Unremarkable. IMPRESSION: 1. Images are mildly motion degraded. 2. No proximal intracranial arterial occlusion identified. 3. The left posterior cerebral artery demonstrates a critical short-segment stenosis in the distal P3 segment. 4. Severe short-segment stenosis of the right vertebral artery due to calcified atherosclerosis. Electronically signed by: Ofelia Restrepo On 09/07/2020 18:55:20 PM
[2020-09-07] MEDS ORDERED: ASPIRIN 81 MG CHEW TABLET PO ONE (19:25)
[2020-09-07] MEDS ORDERED: LORazepam 2 MG TAB PO PRN (19:25)
[2020-09-07] MEDS ORDERED: MOM 30ML SUSPENSION UDC PO PRN (19:25)
[2020-09-07] MEDS ORDERED: ACETAMINOPHEN TAB 650MG DOSE (2X325MG) PO PRN (19:25)
[2020-09-07] MEDS ORDERED: MAALOX 30 ML SUSP *UDC PO PRN (19:25)
[2020-09-07] MEDS ORDERED: AMLO1TAB25 PO (19:35)
[2020-09-07] MEDS ORDERED: LOSA100T50 PO (19:35)
[2020-09-07] MEDS ORDERED: ACET-683 PO (19:35)
[2020-09-07] MEDS ORDERED: CLOP75TA2 PO (19:35)
[2020-09-07] MEDS ORDERED: PANT-23 PO (19:35)
[2020-09-07 19:39] LABS: RSV AMPLIFICATION NEGATIVE (NEGATIVE)
[2020-09-07] MEDS: traMADol 50 MG TAB PO SCH (21:00)
[2020-09-07] MEDS ORDERED: MIRALAX *UNIT DOSE* 17GM PACKET PO PRN (21:00)
[2020-09-07] MEDS: SENOKOT S TAB PO SCH (21:00)
[2020-09-07 22:30] VITALS: BP 114/70
[2020-09-07 22:55] VITALS: BP 114/70
[2020-09-07] MEDS: ROSUVASTATIN 10 MG TAB (CRESTOR) PO SCH (23:10)
[2020-09-07] MEDS: TAMSULOSIN 0.4 MG CAP PO SCH (23:10)
[2020-09-07] MEDS: SINEMET 25-100 MG TAB PO SCH (23:10)
[2020-09-07] MEDS: AMITRIPTYLINE 50 MG TAB PO SCH (23:11)
[2020-09-07] MEDS: THIAMINE 100 MG TAB PO SCH (23:11)
--- NOTE | 2020-09-07 23:58 | HPEPDOC ---
[facility] Medical History & Physical Date of Admission Sep 08, 2020 Date of Service: Sep 08, 2020 Primary Care Physician: Wilfred Noel M.D. Attending Physician: SUNG ENRIQUE MD History and Physical TIME OF SERVICE: 932pm CHIEF COMPLAINT: right sided paresthesia HISTORY OF PRESENT ILLNESS: This evening at about quarter to 5 this 79yr old M developed right sided facial paresthesias and right upper and lower extremity weakness; bc he has a hx of GI bleed he was not given tPA. He had similar symptoms on the left side of his body last year and was transferred to [facility] for evaluation. At the time of my evaluation the patient reported that symptoms had partially resolved, but he still has some right sided weakness. 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 He has had L1-S1 posterior decompression with fusions & T11-S1 iliac bolts transforaminal lumbar interbody fusion Small bowel obstructions s/p Robotic Lysis of adhesions on 11/2019 Robotic-assisted laparoscopic lysis of adhesions converted to laparotomy, lysis of adhesions with drainage of interloop abscess, small bowel resection and anastomosis with repair of seromuscular tears on 12/13/19 Bladder neck incision 2/2 contracture FMH: Father had emphysema Mother had Alzheimer Twin brother was legally blind Brother had prostate cancer Sister had gastric cancer Other relatives Parkinson, DM SOCIAL HISTORY: 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 He is former smoker and has a hx of drinking heavily (6-8 beers daily) and hx of alcohol w/d in 2011. ALLERGIES: Please see below. HOME MEDICATIONS: Please see below. PHYSICAL EXAMINATION: Vital Signs Date Time Temp Pulse Resp B/P (MAP) Pulse Ox O2 Delivery O2 Flow Rate FiO2 09/07/20 18:07 96.9 52 20 143/81 (101) 95 Room Air VITAL SIGNS: Please see below. GENERAL APPEARANCE: well nourished and developed /NAD HEENT: EOMI / MM pink but dry CARDIOVASCULAR: RRR/NMRG / no LE edema LUNGS: CTAB on RA ABDOMEN: flat / soft & NT MUSCULOSKELETAL: temporal wasting / has muscle wasting in thighs and upper arms INTEGUMENT: not pale or flushed NEUROLOGICAL: EOMI / facial symmetrical / tounge mid-line / strength 5/5 on the left and -5/5 at the RUE /speech is dysarthric PSYCHIATRIC: A&O / able to understand and follow all commands LABORATORY DATA: 09/07/20 17:54 Immature Granulocyte % (Auto) 0.2, Neutrophils (%) (Auto) 69.6H, Lymphocytes (%) (Auto) 15.1L, Monocytes (%) (Auto) 11.8H, Eosinophils (%) (Auto) 2.8, Basophils (%) (Auto) 0.5, Neutrophils # (Auto) 4.4, Lymphocytes # (Auto) 1.0L, Monocytes # (Auto) 0.8, Eosinophils # (Auto) 0.2, Basophils # (Auto) 0.0, Nucleated Red Blood Cells % (auto) 0.0, POC Glucose (Misc Panel) 107H, POC Sodium (Misc Panel) 141, POC Potassium (Misc Panel) 3.8, POC Chloride (Misc Panel) 104, POC Total CO2 (Misc Panel) 26.0, POC Blood Urea Nitrogen (Misc Panel 23, POC Ionized Calcium (Misc Panel) 5.0, POC Creatinine (Misc Panel) 1.5H, POC Hematocrit (Misc Panel) 38.0, Total Bilirubin 0.5, Direct Bilirubin 0.1, Aspartate Amino Transf (AST/SGOT) 18, Alanine Aminotransferase (ALT/SGPT) 9L, Alkaline Phosphatase 79, Total Creatine Kinase 108, Creatine Kinase MB 3.4, Creatine Kinase MB Relative Index 3.15, Troponin I < 0.02, Total Protein 7.6, Albumin 3.6, Albumin/Globulin Ratio 0.9, Thyroid Stimulating Hormone (TSH) 0.503, Ethyl Alcohol Level < 0.003 IMAGING: Chest xray "IMPRESSION: Hyperinflation. Pleuroparenchymal fibrosis left greater than right. No acute infiltrate seen." CT head "IMPRESSION: No acute intracranial abnormality seen. " CTA neck "IMPRESSION: 1. No acute vascular findings in the neck. 2. Moderate, approximate 60-65% right carotid bulb stenosis. 3. Mild, approximate 30% proximal left ICA stenosis. 4. The vertebral arteries are patent." CTA head "IMPRESSION: 1. Images are mildly motion degraded. 2. No proximal intracranial arterial occlusion identified. 3. The left posterior cerebral artery demonstrates a critical short-segment stenosis in the distal P3 segment. 4. Severe short-segment stenosis of the right vertebral artery due to calcified atherosclerosis." MICROBIOLOGY: Coronavirus (COVID-19)(PCR) NEGATIVE, Influenza Type A (RT-PCR) NEGATIVE, Influenza Type B (RT-PCR) NEGATIVE, Respiratory Syncytial Virus (PCR) NEGATIVE ASSESSMENT: is a 79 yr old w a hx of Parkinson, HTN, HFpEF, alcoholic liver cirrhosis, BAUTISTA/B12 deficiency, DLP, chronic constipation, pseudogout and MGUS who presented w c/o right facial paresthesias, and right upper and lower extremity weakness; CT of the head was unremarkable while CTA of the neck showed 60% stenosis at the right carotid bulb. He will be admitted pending completion of the work up to determine if he has TIA vs CVA. PLAN: 1 TIA vs CVA His right sided symptoms have almost completely resolved. If his symptoms resolve and this is a TIA with an ABCD2 Score of 5. Hospital admission is recommended for patients with ABCD2 Score >/=4 and patient presented w/in 24H of symptom on set. Plan: admit to Medical floor / telemetry /fall precautions / permissive hypertension for 24 hours with target blood pressure less than 220/120 (the day time team may resume his BP meds in the AM) / f/u MRI brain, Echo, lipids and A1C / the patient is already on ASA &Plavix & a statin / the day time team may also decide on whether or not to consult PT/OT 2 Parkinson complicated by dysphagia, constipation & anxiety/depression Plan: swallow eval / c/w Carbidopa/Levodopa / Sennosides/Docusate for const ipation, provided pt on info about foods high in probiotics (recently published Systematic Reviews and meta-analysis have found that pro-biotics are beneficial for reducing constipation in individuals with Parkinson) / c/w Amitriptyline / f/u w Neuro no an out patient basis 3 Alcohol Abuse / Alcoholic liver cirrhosis ? Plan: fall and seizure precautions w CIWA order set 4 Iron deficiency / B12 deficiency Plan: f/u w PCP for work-up on an out patient basis 5 Essential Hypertension / HFpEF Plan: AM team to resume BP meds 6 MGUS IgM Plan: f/u w PCP and or Heme for surveillance 7 DLP Plan: statin 10 BPH s/p TURP Plan: tamsulosin & Finasteride DVT px w Lovenox Dispo: home after at least 2 midnights stay Home Medications Scheduled Acetaminophen (Acetaminophen) 500 Mg Tablet, 1,000 MG PO TID Alfuzosin HCl (Alfuzosin HCl ER) 10 Mg Tab, 10 MG PO DAILY Amitriptyline HCl (Amitriptyline HCl) 50 Mg Tab, 50 MG PO QHS Amlodipine Besylate (Amlodipine Besylate) 10 Mg Tablet, 10 MG PO DAILY Carbidopa/Levodopa (Carbidopa-Levodopa 25-100 Tab) 1 Each Tablet, 2 TAB PO BID Clopidogrel Bisulfate (Clopidogrel) 75 Mg Tablet, 75 MG PO DAILY Finasteride (Finasteride) 5 Mg Tab, 5 MG PO DAILY Losartan Potassium (Losartan Potassium) 100 Mg Tablet, 100 MG PO DAILY Pantoprazole Sodium (Pantoprazole Sodium) 40 Mg Tablet.dr, 40 MG PO DAILY Rosuvastatin Calcium (Rosuvastatin Calcium) 20 Mg Tablet, 20 MG PO QHS Sennosides/Docusate Sodium (Senexon-S 50-8.6 mg Tablet) 1 Each Tablet, 2 EACH PO BID Tramadol HCl (Tramadol HCl) 50 Mg Tab, 50 MG PO TID Scheduled PRN Polyethylene Glycol 3350 (Miralax) 1 Pow Pow, 17 GM PO DAILY PRN for CONSTIPATION Allergies Coded Allergies: No Known Allergies (Unverified , 09/29/18) A-FIB/CHADSVASC A-FIB History Current/History of A-Fib/PAF?: No Current PO Anticoag Therapy: No SUNG ENRIQUE MD Sep 07, 2020 23:58
[2020-09-08 06:00] VITALS: BP 136/5
[2020-09-08 06:11] LABS: HEMATOCRIT 37.6 % (42.0-52.0); MEAN CORPUSCULAR HEMOGLOBIN 30.9 pg (27.0-33.0); MEAN CORPUSCULAR HGB CONC 31.9 g/dl (32.0-36.5); MEAN CORPUSCULAR VOLUME 96.9 fl (80.0-96.0); PLATELET COUNT, AUTOMATED 209 10^3/uL (150-450); RED BLOOD COUNT 3.88 10^6/uL (4.30-6.10); WHITE BLOOD COUNT 6.1 10^3/uL (4.0-10.0)
[2020-09-08 06:25] LABS: AMPHETAMINES LEVEL URINE NEGATIVE (NEGATIVE); BARBITURATES URINE NEGATIVE (NEGATIVE); BENZODIAZEPINES URINE NEGATIVE (NEGATIVE); CANNABINOIDS URINE NEGATIVE (NEGATIVE); COCAINE METABOLITE URINE NEGATIVE (NEGATIVE); METHADONE URINE NEGATIVE (NEGATIVE); OPIATES URINE NEGATIVE (NEGATIVE); PHENCYCLIDINE URINE NEGATIVE (NEGATIVE)
[2020-09-08 06:26] LABS: CALCIUM LEVEL 8.6 MG/DL (8.8-10.2); CREATININE FOR GFR 1.26 MG/DL (0.70-1.30); GLOMERULAR FILTRATION RATE 58.9 (>42); POTASSIUM SERUM 3.7 MEQ/L (3.5-5.1)
[2020-09-08 06:30] LABS: CHOLESTEROL RISK RATIO 5.152 (<5)
[2020-09-08 06:47] VITALS: BP 136/65
[2020-09-08] MEDS ORDERED: LOSARTAN 50MG TABLET PO SCH (09:00)
[2020-09-08] MEDS: SINEMET 25-100 MG TAB PO SCH ×2 (09:52→20:35)
[2020-09-08] MEDS: MULTIVITAMINS/MINERALS THERAP 1 TAB PO SCH (09:52)
[2020-09-08] MEDS: THIAMINE 100 MG TAB PO SCH ×2 (09:52→20:36)
[2020-09-08] MEDS: SENOKOT S TAB PO SCH ×2 (09:52→20:35)
[2020-09-08] MEDS: FOLIC ACID 1 MG TAB PO SCH (09:52)
[2020-09-08] MEDS: CLOPIDOGREL 75 MG TAB PO SCH (09:52)
[2020-09-08] MEDS: traMADol 50 MG TAB PO SCH ×3 (09:53→20:37)
[2020-09-08] MEDS: ENOXAPARIN 40MG/0.4ML SYRINGE (J1650 PER 10MG) SC SCH (09:54)
[2020-09-08] MEDS: PANTOPRAZOLE 40MG TAB (PROTONIX) PO SCH (09:54)
[2020-09-08] MEDS: FINASTERIDE 5 MG TAB PO SCH (09:54)
--- NOTE | 2020-09-08 13:53 | REPVR ---
PROCEDURE INFORMATION: Exam: MR Head Without Contrast Exam date and time: 09/08/2020 1:01 PM Age: 79 years old Clinical indication: Altered mental status/memory loss; Confusion or disorientation; Patient HX: Confusion that comes and goes right facial and R arm weakness TECHNIQUE: Imaging protocol: MR of the head without contrast. COMPARISON: CT Head without contrast 09/07/2020 5:04 PM FINDINGS: Brain: Examination reveals an approximately 20 x 8 mm focus of restricted diffusion along the posterior aspect of the left external capsule and the adjacent putamen consistent with acute infarction. No acute hemorrhage, mass or midline shift is seen. There is mild patchy increased T2 signal intensity within the bilateral cerebral periventricular white matter, consistent with chronic microvascular ischemic changes. There are multiple small focal areas of chronic ischemia in bilateral frontal, parietal and periatrial white matter. Chronic ischemic changes/lacunar infarctions are seen in bilateral basal ganglia. Chronic ischemic changes are seen in the gil. There is mild diffuse cerebral atrophy present, consistent with this patient's age. Cerebral ventricles: The ventricular system demonstrates mild diffuse compensatory enlargement. Bones/joints: Unremarkable. Paranasal sinuses: Mild mucosal thickening is seen in the paranasal sinuses. Mastoid air cells: Normal as visualized. No mastoid effusion. Orbital cavity: Unremarkable. Soft tissues: Unremarkable. IMPRESSION: Examination reveals an approximately 20 x 8 mm focus of restricted diffusion along the posterior aspect of the left external capsule and the adjacent putamen consistent with acute infarction. No acute hemorrhage, mass or midline shift is seen. Electronically signed by: Austin Gomez On 09/08/2020 13:53:32 PM
[2020-09-08 14:00] VITALS: BP 115/62
--- NOTE | 2020-09-08 15:06 | IPNPDOC ---
Text Note Date of Service The patient was seen on 09/08/20. NOTE Patient seen and examined by me this morning. The patient states that he feels better than yesterday but still complains of right upper and lower extremity weakness but has improved since yesterday. Physical examination GENERAL APPEARANCE: well nourished and developed /NAD HEENT: EOMI / MM pink but dry CARDIOVASCULAR: RRR/NMRG / no LE edema LUNGS: CTAB on RA ABDOMEN: flat / soft & NT MUSCULOSKELETAL: temporal wasting / has muscle wasting in thighs and upper arms INTEGUMENT: not pale or flushed NEUROLOGICAL: EOMI / facial symmetrical / tounge mid-line / strength 5/5 on the left and -5/5 at the RUE /speech is slightly dysarthric PSYCHIATRIC: A&O / able to understand and follow all commands Labs reviewed Radiology reviewed ASSESSMENT: is a 79 yr old w a hx of Parkinson, HTN, HFpEF, alcoholic liver cirrhosis, BAUTISTA/B12 deficiency, DLP, chronic constipation, pseudogout and MGUS who presented w c/o right facial paresthesias, and right upper and lower extremity weakness; CT of the head was unremarkable while CTA of the neck showed 60% stenosis at the right carotid bulb. He will be admitted pending completion of the work up to determine if he has TIA vs CVA. PLAN: 1. CVA: MRI reveals approximately 20 x 8 mm focus of restricted diffusion along the posterior aspect of the left external capsule and the adjacent putamen consistent with acute infarction. No acute hemorrhage, mass or midline shift is seen. Workup has been initiated and he got us CTA showsLeft posterior cerebral artery: The left posterior cerebral artery demonstrates a critical short-segment stenosis in the distal P3 segment. LAP A1c 6. Lipid panel has been done. The liberty will be continued and the patient is currently awaiting 2-D echo. Patient has been started on aspirin, Plavix and high intensity started. An physical therapy and occupational therapy also has been consulted. We'll continue to monitor 2 ParkinsonS complicated by dysphagia, constipation & anxiety/depression: c/w Carbidopa/Levodopa / Sennosides/Docusate for constipation, f/u w Neuro no an out patient basis 3 Alcohol Abuse : I don't believe that the patient has alcoholic cirrhosis given the patient normal platelet count. In any case, we'll continue serial protocol. Vitamin B12 and folic acid. 4 Hx of Iron deficiency / B12 deficiency: f/u w PCP 5 Essential Hypertension / HFpEF: All and Other medications had to prevent water shedding. 6 MGUS IgM: Outpatient follow-up. Plan: 7 BPH s/p TURP: tamsulosin & Finasteride DVT px w Lovenox Dispo: Unknown at this time. PT, OT evaluation needed. VS,Fishbone, I+O VS, Fishbone, I+O Laboratory Tests 09/07/20 17:54 09/08/20 05:49 Vital Signs Date Time Temp Pulse Resp B/P (MAP) Pulse Ox O2 Delivery O2 Flow Rate FiO2 09/08/20 09:53 16 Room Air 09/08/20 06:47 53 136/65 09/08/20 06:00 97.9 96 I&O- Last 24 Hours up to 6 AM 09/08/20 05:59 Intake Total 360 ml Output Total 550 ml Balance -190 ml DEANGELO BURKS MD Sep 08, 2020 15:06
[2020-09-08 16:00] VITALS: BP 115/62
--- NOTE | 2020-09-08 19:51 | ECGEPIP ---
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
[2020-09-08] MEDS: ROSUVASTATIN 10 MG TAB (CRESTOR) PO SCH (20:35)
[2020-09-08] MEDS: ATORVASTATIN 20 MG TAB PO SCH (20:35)
[2020-09-08] MEDS: TAMSULOSIN 0.4 MG CAP PO SCH (20:36)
[2020-09-08] MEDS: AMITRIPTYLINE 50 MG TAB PO SCH (20:36)
[2020-09-08 22:00] VITALS: BP 139/61
[2020-09-08 22:04] VITALS: BP 139/61
[2020-09-09 06:00] VITALS: BP 168/76
[2020-09-09 06:54] VITALS: BP 168/76
--- NOTE | 2020-09-09 08:37 | ECHO ---
DATE OF PROCEDURE: 09/08/2020 Age: 79 Gender: Male Height: Weight: REFERRING PHYSICIAN: Pia Lara MD INDICATION: Acute stroke, unspecified. MEASUREMENTS: 2D Measurements: Aortic root 3.1 cm Left atrium 4.2 cm Intraventricular septum 1.06 1.32 cm Posterior wall 1.16 cm Left ventricle diastole 5.1 cm Proximal ascending aorta 3.4 cm Inferior vena cava 1.8 cm (more than 50% respiratory variation) Doppler Measurements: Very mild aortic regurgitation No aortic stenosis Aortic valve velocity 143 cm/s LVOT VTI 93.3 cm/s Trace mitral regurgitation Mitral E velocity 77.1 cm/s Mitral A velocity 84.0 cm/s Mitral deceleration time 135 msec Mild tricuspid regurgitation Estimated right ventricular systolic pressure 26-31 mmHg Estimated right atrial pressure 5-10 mmHg Trace pulmonic regurgitation Pulmonary artery acceleration time 111 msec MITRAL ANNULAR TISSUE DOPPLER E prime septal 7.0 cm/s, E prime lateral 8.1 cm/s DESCRIPTION: Rhythm was sinus bradycardia with first-degree AV block. No pericardial effusion. Image quality was fair. This was a 2D, M-mode, color flow Doppler, and pulsed wave Doppler examination including mitral annular tissue Doppler. CONCLUSIONS: 1. Saline bubble study negative for detection of intracardiac or pulmonary [id number] shunting. 2. Mild focal hypertrophy of the basal anterior ventricular septum. Normal left ventricle internal dimensions. Normal left ventricle systolic function. LVEF 65% by visual estimate. Normal LV regional wall motion. Grade 1 LV diastolic dysfunction. 3. Moderate aortic valve sclerosis of a 3-cuspid aortic valve. Very mild aortic regurgitation. No aortic stenosis. 4. Mild mitral annular calcification. Trace mitral regurgitation. 5. Mild left atrial enlargement. 6. Otherwise normal appearing echocardiogram Doppler findings. [facility]
[2020-09-09] MEDS: FOLIC ACID 1 MG TAB PO SCH (08:45)
[2020-09-09] MEDS: PANTOPRAZOLE 40MG TAB (PROTONIX) PO SCH (08:46)
[2020-09-09] MEDS: SENOKOT S TAB PO SCH ×2 (08:46→21:15)
[2020-09-09] MEDS: CLOPIDOGREL 75 MG TAB PO SCH (08:46)
[2020-09-09] MEDS: THIAMINE 100 MG TAB PO SCH ×2 (08:46→21:00)
[2020-09-09] MEDS: MULTIVITAMINS/MINERALS THERAP 1 TAB PO SCH (08:46)
[2020-09-09] MEDS: FINASTERIDE 5 MG TAB PO SCH (08:47)
[2020-09-09] MEDS: SINEMET 25-100 MG TAB PO SCH ×2 (08:47→21:13)
[2020-09-09] MEDS: ENOXAPARIN 40MG/0.4ML SYRINGE (J1650 PER 10MG) SC SCH (08:47)
[2020-09-09] MEDS: traMADol 50 MG TAB PO SCH ×3 (08:49→21:00)
--- NOTE | 2020-09-09 11:01 | IPNPDOC ---
Text Note Date of Service The patient was seen on 09/09/20. NOTE Patient seen and examined by me this morning. The patient states that he feels better than yesterday , he is still having trouble articulating but is doing well Physical examination GENERAL APPEARANCE: well nourished and developed /NAD HEENT: EOMI / MM pink but dry CARDIOVASCULAR: RRR/NMRG / no LE edema LUNGS: CTAB on RA ABDOMEN: flat / soft & NT MUSCULOSKELETAL: temporal wasting / has muscle wasting in thighs and upper arms INTEGUMENT: not pale or flushed NEUROLOGICAL: EOMI / facial symmetrical / tounge mid-line / strength 5/5 on the left and -5/5 at the RUE /speech is slightly dysarthric PSYCHIATRIC: A&O / able to understand and follow all commands Labs reviewed Radiology reviewed Assessment and plan is a 79 yr old w a hx of Parkinson, HTN, HFpEF, alcoholic liver cirrhosis, BAUTISTA/B12 deficiency, DLP, chronic constipation, pseudogout and MGUS who presented w c/o right facial paresthesias, and right upper and lower extremity weakness; CT of the head was unremarkable while CTA of the neck showed 60% stenosis at the right carotid bulb.. He had an MRI which showed that the patient is having left external capsule acute infarction . He was admitted for a CVA 1. CVA: MRI reveals approximately 20 x 8 mm focus of restricted diffusion along the posterior aspect of the left external capsule and the adjacent putamen consistent with acute infarction. No acute hemorrhage, mass or midline shift is seen. Workup has been initiated and he got us CTA showsLeft posterior cerebral artery: The left posterior cerebral artery demonstrates a critical short-segment stenosis in the distal P3 segment. LAP A1c 6. Lipid panel done. 2-D echo revi ewed. No acute abnormalities identified. Telemetry reviewed. The patient has sinus rhythm with sinus bradycardia. Patient has been started on aspirin, Plavix and high intensity started. An physical therapy and occupational therapy are also following. We'll continue to monitor Currently antihypertensive medications are on hold prevent water shedding. We will optimize the antihypertensive medications soon 2 ParkinsonS complicated by dysphagia, constipation & anxiety/depression: c/w Carbidopa/Levodopa / Sennosides/Docusate for constipation, f/u w Neuro no an out patient basis 3 Alcohol Abuse : I don't believe that the patient has alcoholic cirrhosis given the patient normal platelet count. In any case, we'll continue serial protocol. Vitamin B12 and folic acid. 4 Hx of Iron deficiency / B12 deficiency: f/u w PCP 5 Essential Hypertension / HFpEF: All and Other medications had to prevent water shedding. 6 MGUS IgM: Outpatient follow-up. 7 BPH s/p TURP: tamsulosin & Finasteride DVT px w Lovenox Dispo: PT, OT recommended home with home health and the patient also wants to go home. We will optimize the medication and possibly discharge in the next 24 hours. VS,Fishbone, I+O VS, Fishbone, I+O Vital Signs Date Time Temp Pulse Resp B/P (MAP) Pulse Ox O2 Delivery O2 Flow Rate FiO2 09/09/20 08:49 18 09/09/20 06:54 50 168/76 09/09/20 06:00 97.6 95 Room Air I&O- Last 24 Hours up to 6 AM 09/09/20 06:00 Intake Total 1960 ml Output Total 1075 ml Balance 885 ml DEANGELO BURKS MD Sep 09, 2020 11:01
[2020-09-09 14:00] VITALS: BP 93/58
[2020-09-09] MEDS: ROSUVASTATIN 10 MG TAB (CRESTOR) PO SCH (21:13)
[2020-09-09] MEDS: AMITRIPTYLINE 50 MG TAB PO SCH (21:15)
[2020-09-09] MEDS: ATORVASTATIN 20 MG TAB PO SCH (21:16)
[2020-09-09] MEDS: TAMSULOSIN 0.4 MG CAP PO SCH (21:16)
[2020-09-09 22:00] VITALS: BP 169/81
[2020-09-10 06:00] VITALS: BP 153/74
[2020-09-10] MEDS: SENOKOT S TAB PO SCH (09:15)
[2020-09-10] MEDS: traMADol 50 MG TAB PO SCH (09:15)
[2020-09-10] MEDS: MULTIVITAMINS/MINERALS THERAP 1 TAB PO SCH (09:15)
[2020-09-10] MEDS: THIAMINE 100 MG TAB PO SCH (09:15)
[2020-09-10] MEDS: CLOPIDOGREL 75 MG TAB PO SCH (09:15)
[2020-09-10] MEDS: PANTOPRAZOLE 40MG TAB (PROTONIX) PO SCH (09:15)
[2020-09-10] MEDS: SINEMET 25-100 MG TAB PO SCH (09:16)
[2020-09-10] MEDS: FOLIC ACID 1 MG TAB PO SCH (09:16)
[2020-09-10] MEDS: ENOXAPARIN 40MG/0.4ML SYRINGE (J1650 PER 10MG) SC SCH (09:16)
[2020-09-10] MEDS: FINASTERIDE 5 MG TAB PO SCH (09:16)
[2020-09-10] MEDS ORDERED: ASPI81CH33 PO (11:17)
[2020-09-10] MEDS ORDERED: ATOR1TAB21 PO (11:17)
--- NOTE | 2020-09-10 11:48 | IPNPDOC ---
Text Note Date of Service The patient was seen on 09/10/20. 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 He had an MRI which showed that the patient is having left external capsule acute infarction . He was admitted for a CVA . MRI reveals approximately 20 x 8 mm focus of restricted diffusion along the posterior aspect of the left external capsule and the adjacent putamen consistent with acute infarction. No acute hemorrhage, mass or midline shift is seen. Workup has been initiated and he got us CTA shows Left posterior cerebral artery: The left posterior cerebral artery demonstrates a critical short- segment stenosis in the distal P3 segment. A1c 6. Lipid panel done. 2-D echo reviewed. No acute abnormalities identified. Telemetry reviewed. The patient has sinus rhythm with sinus bradycardia. No episodes of A. fib. Patient has been started on aspirin, Plavix and high intensity, statins. An physical therapy and occupational therapy saw the patient and recommended home with home health. The patient was led to have permissive hypertension and currently the patient losartan 100 has been continued. In my opinion This is sufficient for him at this time as even without this medication. The patient blood pressure was only in 150s systolic. His amlodipine has been discontinued and he has been advised to follow with the PCP regarding the resumption of his amlodipine or any other addition off his medications for hypertension. For his ParkinsonS complicated by dysphagia, constipation & anxiety/depression: c/w Carbidopa/Levodopa / Sennosides/Docusate for constipation, f/u w Neuro no an out patient basis. He has been advised to follow up with his primary for MGUS IgM: Outpatient follow- up. He will be continued on aspirin, Plavix and high intensity statins with a follow-up with neurology. He is medically stable for discharge Physical examination GENERAL APPEARANCE: well nourished and developed /NAD HEENT: EOMI / MM pink but dry CARDIOVASCULAR: RRR/NMRG / no LE edema LUNGS: CTAB on RA ABDOMEN: flat / soft & NT MUSCULOSKELETAL: temporal wasting / has muscle wasting in thighs and upper arms INTEGUMENT: not pale or flushed NEUROLOGICAL: EOMI / facial symmetrical / tounge mid-line / strength 5/5 on the left and -5/5 at the RUE /speech is slightly dysarthric PSYCHIATRIC: A&O / able to understand and follow all commands Medictations. As per discharge reconciliation medication list Activity as tolerated Diet. 2 g sodium diet Follow-up appointments. PCP in 1 week. Neurology in 2 weeks Condition on discharge. Patient is medically optimized for discharge Discharge disposition: Home Total time spent on this discharge including coordination of care, review of chart documentation and actual patient contact is around 35 minutes VS,Cryse, I+O VS, Eduard, I+O Vital Signs Date Time Temp Pulse Resp B/P (MAP) Pulse Ox O2 Delivery O2 Flow Rate FiO2 09/10/20 09:15 16 09/10/20 06:00 97.1 61 153/74 (100) 98 Room Air I&O- Last 24 Hours up to 6 AM 09/10/20 05:59 Intake Total 1680 ml Output Total 2075 ml Balance -395 ml DEANGELO BURKS MD Sep 10, 2020 11:48
--- NOTE | 2020-09-10 11:54 | DS.PDOC ---
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 He had an MRI which showed that the pat ient is having left external capsule acute infarction . He was admitted for a CVA . MRI reveals approximately 20 x 8 mm focus of restricted diffusion along the posterior aspect of the left external capsule and the adjacent putamen consistent with acute infarction. No acute hemorrhage, mass or midline shift is seen. Workup has been initiated and he got us CTA shows Left posterior cerebral artery: The left posterior cerebral artery demonstrates a critical short- segment stenosis in the distal P3 segment. A1c 6. Lipid panel done. 2-D echo reviewed. No acute abnormalities identified. Telemetry reviewed. The patient has sinus rhythm with sinus bradycardia. No episodes of A. fib. Patient has been started on aspirin, Plavix and high intensity, statins. An physical therapy and occupational therapy saw the patient and recommended home with home health. The patient was led to have permissive hypertension and currently the patient losartan 100 has been continued. In my opinion This is sufficient for him at this time as even without this medication. The patient blood pressure was only in 150s systolic. His amlodipine has been discontinued and he has been advised to follow with the PCP regarding the resumption of his amlodipine or any other addition off his medications for hypertension. For his ParkinsonS complicated by dysphagia, constipation & anxiety/depression: c/w Carbidopa/Levodopa / Se nnosides/Docusate for constipation, f/u w Neuro no an out patient basis. He has been advised to follow up with his primary for MGUS IgM: Outpatient follow-up. He will be continued on aspirin, Plavix and high intensity statins with a follow-up with neurology. He is medically stable for discharge Physical examination GENERAL APPEARANCE: well nourished and developed /NAD HEENT: EOMI / MM pink but dry CARDIOVASCULAR: RRR/NMRG / no LE edema LUNGS: CTAB on RA ABDOMEN: flat / soft & NT MUSCULOSKELETAL: temporal wasting / has muscle wasting in thighs and upper arms INTEGUMENT: not pale or flushed NEUROLOGICAL: EOMI / facial symmetrical / tounge mid-line / strength 5/5 on the left and -5/5 at the RUE /speech is slightly dysarthric PSYCHIATRIC: A&O / able to understand and follow all commands Medictations. As per discharge reconciliation medication list Activity as tolerated Diet. 2 g sodium diet Follow-up appointments. PCP in 1 week. Neurology in 2 weeks Condition on discharge. Patient is medically optimized for discharge Discharge disposition: Home Total time spent on this discharge including coordination of care, review of chart documentation and actual patient contact is around 35 minutes Vital Signs/I&Os Vital Signs Date Time Temp Pulse Resp B/P (MAP) Pulse Ox O2 Delivery O2 Flow Rate FiO2 09/10/20 09:15 16 09/10/20 06:00 97.1 61 153/74 (100) 98 Room Air I&O- Last 24 Hours up to 6 AM 09/10/20 06:00 Intake Total 1780 ml Output Total 2000 ml Balance -220 ml Microbiology Microbiology 09/08/20 Urine Culture - Final, Complete Discharge Medications Scheduled Acetaminophen (Acetaminophen) 500 Mg Tablet, 1,000 MG PO TID, (Reported) Alfuzosin HCl (Alfuzosin HCl ER) 10 Mg Tab, 10 MG PO DAILY, (Reported) Amitriptyline HCl (Amitriptyline HCl) 50 Mg Tab, 50 MG PO QHS, (Reported) Aspirin (Aspirin) 81 Mg Tab.chew, 1 TAB PO DAILY for pain Atorvastatin Calcium (Atorvastatin Calcium) 20 Mg Tablet, 40 MG PO QHS Carbidopa/Levodopa (Carbidopa-Levodopa 25-100 Tab) 1 Each Tablet, 2 TAB PO BID, (Reported) Clopidogrel Bisulfate (Clopidogrel) 75 Mg Tablet, 75 MG PO DAILY, (Reported) Finasteride (Finasteride) 5 Mg Tab, 5 MG PO DAILY, (Reported) Losartan Potassium (Losartan Potassium) 100 Mg Tablet, 100 MG PO DAILY, (Reported) Pantoprazole Sodium (Pantoprazole Sodium) 40 Mg Tablet.dr, 40 MG PO DAILY, (Reported) Rosuvastatin Calcium (Rosuvastatin Calcium) 20 Mg Tablet, 20 MG PO QHS, (Reported) Sennosides/Docusate Sodium (Senexon-S 50-8.6 mg Tablet) 1 Each Tablet, 2 EACH PO BID, (Reported) Tramadol HCl (Tramadol HCl) 50 Mg Tab, 50 MG PO TID, (Reported) Scheduled PRN Polyethylene Glycol 3350 (Miralax) 1 Pow Pow, 17 GM PO DAILY PRN for CONSTIPATION, (Reported) Allergies Coded Allergies: No Known Allergies (Unverified , 09/29/18) DEANGELO BURKS MD Sep 10, 2020 11:54
== END 2020-09-10 13:55 | disposition home health service (06) | DRG 65 ==
LOC: M ED 16:57 → M ED INP 16:58 → ENRESERV 20:08 → M MSPAV 22:32 → OBSVTOIN 09-09 11:12
PROVIDERS: ADMIT Internal Medicine; ATTEND Internal Medicine
DX: I63.9 Cerebral infarction, unspecified (principal); I50.32 Chronic diastolic (congestive) heart failure; K57.20 Diverticulitis of large intestine with perforation and abscess without bleeding; I11.0 Hypertensive heart disease with heart failure; K70.30 Alcoholic cirrhosis of liver without ascites; D50.9 Iron deficiency anemia, unspecified; G20 Parkinson's disease; E53.8 Deficiency of other specified B group vitamins; K59.00 Constipation, unspecified; M10.9 Gout, unspecified; Z79.899 Other long term (current) drug therapy; Z79.82 Long term (current) use of aspirin; F41.9 Anxiety disorder, unspecified; F32.9 Major depressive disorder, single episode, unspecified; N40.0 Benign prostatic hyperplasia without lower urinary tract symptoms

== ENCOUNTER 2020-09-16 16:25 | Emergency (ER) | payer MEDICARE, BC, OTHER ==
[~2020-09-16] VITALS: Ht 170.2 cm; Wt 68.2 kg
[~2020-09-16 16:25] MED LIST changes: +ACET-683 PO; +AMLO1TAB25 PO; +ASPI81CH33 PO; +ATOR1TAB21 PO; +CLOP75TA2 PO; +PANT-23 PO
[2020-09-16] MEDS ORDERED: AMLO1TAB25 (16:36)
--- NOTE | 2020-09-16 17:53 | REPVR ---
PROCEDURE INFORMATION: Exam: CT Head Without Contrast Exam date and time: 09/16/2020 5:41 PM Age: 79 years old Clinical indication: Injury or trauma; Fall; Blunt trauma (contusions or hematomas); Additional info: Fall, head injury, blood thinner TECHNIQUE: Imaging protocol: Computed tomography of the head without contrast. Radiation optimization: All CT scans at this facility use at least one of these dose optimization techniques: automated exposure control; mA and/or kV adjustment per patient size (includes targeted exams where dose is matched to clinical indication); or iterative reconstruction. COMPARISON: CT Head without contrast 09/07/2020 5:04 PM FINDINGS: Brain: The brain demonstrates diffuse volume loss. There is white matter hypodensity most consistent with chronic small vessel ischemic change. No visible evolving territorial infarct. No hemorrhage. Cerebral ventricles: The ventricles are mildly enlarged in keeping with volume loss. Bones/joints: No acute calvarial fracture seen. Paranasal sinuses: Mild ethmoid sinus mucosal thickening. Retention cyst or polyp in the right sphenoid sinus. Mastoid air cells: Visualized mastoid air cells are well aerated. Soft tissues: Unremarkable. IMPRESSION: No acute intracranial abnormality seen. Electronically signed by: Ofelia Restrepo On 09/16/2020 17:53:25 PM
--- NOTE | 2020-09-16 17:59 | REPVR ---
PROCEDURE INFORMATION: Exam: CT Cervical Spine Without Contrast Exam date and time: 09/16/2020 5:41 PM Age: 79 years old Clinical indication: Injury or trauma; Fall; Blunt trauma; Additional info: Fall, head injury, blood thinner TECHNIQUE: Imaging protocol: Computed tomography images of the cervical spine without contrast. Radiation optimization: All CT scans at this facility use at least one of these dose optimization techniques: automated exposure control; mA and/or kV adjustment per patient size (includes targeted exams where dose is matched to clinical indication); or iterative reconstruction. COMPARISON: CT ANGIO NECK 09/07/2020 6:11 PM FINDINGS: Bones/joints: Straightening of the cervical lordosis. No acute fracture seen. Discs/Spinal canal/Neural foramina: Prior ACDF with partial corpectomy and placement of a strut graft spanning C3 through C5. The hardware appears intact and in place. There is solid osseous bridging across the graft. Fusion across the C5-C6 disc space may be degenerative or postsurgical, please correlate with patient history. Likely degenerative ankylosis across the posterior aspect of the C6-C7 disc space. Severe disc height loss and spondylosis at C7-T1 and T1-T2. Moderate pannus like degenerative changes at C1-C2. Multilevel cervical facet arthropathy. No severe central spinal canal stenosis. Multilevel neural foraminal stenoses due to uncovertebral and facet arthropathy. Lungs: Lung apices are normal. Vasculature: Moderate carotid atherosclerosis. Soft tissues: Unremarkable. IMPRESSION: No cervical spine fracture seen. Electronically signed by: Ofelia Restrepo On 09/16/2020 17:59:21 PM
[2020-09-16 18:41] VITALS: BP 111/65
== END 2020-09-16 18:42 | disposition home or self-care (01) ==
LOC: M ED 16:25
DX: G89.29 Other chronic pain (principal); M25.561 Pain in right knee; M54.5 Low back pain; S00.03XA Contusion of scalp, initial encounter; W01.0XXA Fall on same level from slipping, tripping and stumbling without subsequent striking against object, initial encounter; Y92.9 Unspecified place or not applicable; Y93.9 Activity, unspecified; Y99.9 Unspecified external cause status; I11.0 Hypertensive heart disease with heart failure; I50.32 Chronic diastolic (congestive) heart failure; E78.5 Hyperlipidemia, unspecified; N40.0 Benign prostatic hyperplasia without lower urinary tract symptoms; K70.30 Alcoholic cirrhosis of liver without ascites; G20 Parkinson's disease; Z87.891 Personal history of nicotine dependence; Z79.899 Other long term (current) drug therapy

== ENCOUNTER 2020-10-19 20:34 | Emergency (ER) | payer MEDICARE, BC, OTHER ==
[~2020-10-19] VITALS: Ht 167.6 cm; Wt 75.0 kg
[~2020-10-19 20:34] MED LIST changes: +AMLO1TAB25
[2020-10-19] MEDS ORDERED: TETRACAINE 0.5% OPHTH SOLN 4ML OU ONE (22:00)
[2020-10-19] MEDS ORDERED: FLUORESCEIN OPHTH 1 MG STRIP OD ONE (23:00)
[2020-10-19] MEDS ORDERED: KETOROLAC 0.5% OPHTH SOLN OD ONE (23:20)
[2020-10-19] MEDS ORDERED: CIPROFLOXACIN 0.3% OPHTH SOLN 2.5ML OD ONE (23:20)
[2020-10-19] MEDS ORDERED: CIPR0.3S6 OD (23:25)
[2020-10-19] MEDS ORDERED: KETO0.3S OD (23:25)
[2020-10-19 23:31] VITALS: BP 124/56
== END 2020-10-19 23:37 | disposition home or self-care (01) ==
LOC: M ED 20:34
DX: S05.01XA Injury of conjunctiva and corneal abrasion without foreign body, right eye, initial encounter (principal); H11.421 Conjunctival edema, right eye; X58.XXXA Exposure to other specified factors, initial encounter; Y92.9 Unspecified place or not applicable; Y93.9 Activity, unspecified; Y99.9 Unspecified external cause status; Z79.899 Other long term (current) drug therapy

== ENCOUNTER → 2020-11-03 | Outpatient (REF) | payer MEDICARE, OTHER ==
[~2020-11-03] MED LIST changes: +CIPR0.3S6 OD; +KETO0.3S OD
[2020-11-03 15:42] LABS: HEMOGLOBIN A1c 6.1 %
[2020-11-03 15:43] LABS: ALBUMIN 3.8 GM/DL (3.2-5.2); ALT/SGPT 9 U/L (12-78); BILIRUBIN,TOTAL 0.6 MG/DL (0.2-1.0); BLOOD UREA NITROGEN 20 MG/DL (7-18); CALCIUM LEVEL 8.8 MG/DL (8.8-10.2); CARBON DIOXIDE LEVEL 25 MEQ/L (21-32); CHLORIDE LEVEL 105 MEQ/L (98-107); CHOLESTEROL LEVEL 249 MG/DL (<200); CPK CREATINE PHOSPHOKINASE 94 U/L (39-308); GLOMERULAR FILTRATION RATE 56.8 (>42); GLUCOSE, FASTING 97 MG/DL (70-100); HDL CHOLESTEROL 59 MG/DL (>40); LDL CHOLESTEROL 179 MG/DL (<100); NON-HDL-C 190 MG/DL; POTASSIUM SERUM 4.5 MEQ/L (3.5-5.1); SODIUM LEVEL 137 MEQ/L (136-145); TOTAL PROTEIN 7.6 GM/DL (6.4-8.2); TRIGLYCERIDES LEVEL 56 MG/DL (<150)
[2020-11-05 14:56] LABS: ALBUMIN 4.39 GM/DL (3.29-5.55); ALBUMIN % 57.7 % (55.8-66.1); ALPHA-1-GLOBULIN % 3.7 % (2.9-4.9); ALPHA-1-GLOBULINS 0.28 GM/DL (0.17-0.41); ALPHA-2-GLOBULINS % 10.5 % (7.1-11.8); BETA-1-GLOBULINS % 5.2 % (4.7-7.2); BETA-2-GLOBULINS 0.33 GM/DL (0.19-0.55); BETA-2-GLOBULINS % 4.4 % (3.2-6.5); GAMMA GLOBULIN % 18.5 % (11.1-18.8); GAMMA GLOBULINS 1.41 GM/DL (0.65-1.58)
== END ==
LOC: M PLALAB 11:54
PROVIDERS: ATTEND Family Medicine
DX: E78.2 Mixed hyperlipidemia (principal); D47.2 Monoclonal gammopathy; R73.01 Impaired fasting glucose
CPT/HCPCS: 36415; 80053; 80061; 82550; 83036; 83525; 84165; 86140; G0463

== ENCOUNTER → 2020-12-29 | Outpatient (CLI) | payer MEDICARE, BC, OTHER ==
[~2020-12-29] MED LIST changes: -AMLO1TAB25; +ASPI81TA26 PO; +ATIV1TAB10 PO; -CEFD1CAP8 PO; +CEFD300C41 PO; +EZET10TA21 PO; +HYOS125TA PO; +LOSA100T45 PO; -LOSA100T50 PO; +LOSA25TA13 PO; +LOSA50TA28 PO; -LOSA50TA88 PO; +MORP1SOL5 PO; +PANT40TA29 PO; +ROSU40TA4 PO
[2020-12-29 17:52] LABS: HEMATOCRIT 37.3 % (42.0-52.0); HEMOGLOBIN 11.8 g/dl (13.5-17.5); MEAN CORPUSCULAR HEMOGLOBIN 31.5 pg (27.0-33.0); MEAN CORPUSCULAR HGB CONC 31.6 g/dl (32.0-36.5); MEAN CORPUSCULAR VOLUME 99.5 fl (80.0-96.0); PLATELET COUNT, AUTOMATED 213 10^3/uL (150-450); RED BLOOD COUNT 3.75 10^6/uL (4.30-6.10); WHITE BLOOD COUNT 6.9 10^3/uL (4.0-10.0)
[2020-12-29 17:57] LABS: ALBUMIN 3.5 GM/DL (3.2-5.2); BILIRUBIN,TOTAL 0.4 MG/DL (0.2-1.0); CALCIUM LEVEL 8.8 MG/DL (8.8-10.2); CHOLESTEROL RISK RATIO 4.68 (<5); CREATININE FOR GFR 1.63 MG/DL (0.70-1.30); GLOMERULAR FILTRATION RATE 43.7 (>42); POTASSIUM SERUM 4.8 MEQ/L (3.5-5.1); TOTAL PROTEIN 7.1 GM/DL (6.4-8.2)
[2020-12-29 18:04] LABS: PTH INTACT 74.7 PG/ML (18.5-88.0); TOTAL 25(OH) VITAMIN D 19.5 NG/ML (30.0-100.0)
== END ==
LOC: M PLALAB 15:05
PROVIDERS: ATTEND Family Medicine
DX: E55.9 Vitamin D deficiency, unspecified (principal); I10 Essential (primary) hypertension; K27.9 Peptic ulcer, site unspecified, unspecified as acute or chronic, without hemorrhage or perforation; Z12.5 Encounter for screening for malignant neoplasm of prostate
CPT/HCPCS: 36415; 80053; 80061; 82306; 82728; 83970; 85027; 86677; G0103; G0463

== ENCOUNTER → 2021-01-19 | Outpatient (CLI) | payer MEDICARE, BC, OTHER | LOC: M RAD 09:30 | PROVIDERS: ATTEND Family Medicine | DX: N18.30 Chronic kidney disease, stage 3 unspecified (principal) ==

== ENCOUNTER 2021-03-06 13:12 | Inpatient (IN) | payer MEDICARE, BC, OTHER ==
[~2021-03-06] VITALS: Ht 172.7 cm; Wt 69.5 kg
[~2021-03-06 13:12] MED LIST changes: -ASPI81TA26 PO; -ATIV1TAB10 PO; +CEFD1CAP8 PO; -CEFD300C41 PO; -EZET10TA21 PO; -HYOS125TA PO; -LOSA100T45 PO; +LOSA100T50 PO; -LOSA25TA13 PO; -LOSA50TA28 PO; +LOSA50TA88 PO; -MORP1SOL5 PO; -PANT40TA29 PO; -ROSU40TA4 PO
--- NOTE | 2021-03-06 13:35 | REP ---
INDICATION: unsteady gait. COMPARISON: Comparison head CT study September 16, 2020. TECHNIQUE: Helical scanning is acquired. 5 mm axial images were reformatted. Coronal MPR images were generated. FINDINGS: Digital preliminary food and beverage assistant manager radiograph is unremarkable. Bone window settings demonstrate intact bony calvarium. There is paranasal sinus mucosal change in the ethmoid air cells bilaterally. No intraorbital abnormality is seen. There is heavy vascular calcification in the distal internal carotid and distal vertebral arteries. On soft tissue window settings, there is mild generalized volume loss. There is a well-defined radiolucency in the left basal ganglia consistent with a lacunar infarct. This is more conspicuous than on the September 16, 2020 study. There is a 2nd tiny area of low-density in the medial aspect of the thalamus on the left also consistent with a small lacunar infarct. Periventricular white matter low-density is seen indicating small vessel changes. There is no evidence of intracranial hemorrhage. No extra-axial fluid collection is seen. No mass or midline shift is observed. IMPRESSION: Diffuse atrophy, vascular calcification, small vessel changes. Two old appearing lacunar infarcts in the left basal ganglia. No acute intracranial abnormality seen. <Electronically signed by Ismael Martinez > 03/06/21 [id number]
[2021-03-06] MEDS ORDERED: ISOVUE-370 76% 100ML VIAL As Ordered ONE (14:26)
--- NOTE | 2021-03-06 14:50 | REP ---
INDICATION: CVA. COMPARISON: Multiple latest 09/07/2020 TECHNIQUE: Portable FINDINGS: The technique utilized in obtaining the radiograph has magnified the cardiac silhouette and accentuated the interstitial markings. Cardiomediastinal silhouette is unchanged. Chronic left basilar fibrotic changes status quo. New patchy opacities are seen in the right middle lower lung zones. The pleural angles are sharp. The osseous structures stable and intact. IMPRESSION: New right lung airspace opacities as described above. Pneumonia cannot be ruled out. <Electronically signed by Rodney Ferrara > 03/06/21 [id number]
[2021-03-06 14:53] LABS: PROTHROMBIN TIME 13.6 SECONDS (12.7-14.5)
[2021-03-06 14:54] LABS: PARTIAL THROMBOPLASTIN TIME 40.5 SECONDS (25.9-37.0)
[2021-03-06 15:03] LABS: BASO % 0.3 % (0.0-1.0); EOS # 0.1 10^3/uL (0.0-0.5); EOS % 1.9 % (0.0-3.0); HEMATOCRIT 32.9 % (42.0-52.0); HEMOGLOBIN 10.6 g/dl (13.5-17.5); LYMPH # 0.7 10^3/uL (1.5-5.0); LYMPH % 11.4 % (24.0-44.0); MEAN CORPUSCULAR HEMOGLOBIN 31.8 pg (27.0-33.0); MEAN CORPUSCULAR HGB CONC 32.2 g/dl (32.0-36.5); MEAN CORPUSCULAR VOLUME 98.8 fl (80.0-96.0); MONO # 0.6 10^3/uL (0.0-0.8); MONO % 9.8 % (2.0-8.0); NEUTROPHILS # 4.9 10^3/uL (1.5-8.5); NEUTROPHILS % 76.3 % (36.0-66.0); PLATELET COUNT, AUTOMATED 185 10^3/uL (150-450); RED BLOOD COUNT 3.33 10^6/uL (4.30-6.10); WHITE BLOOD COUNT 6.4 10^3/uL (4.0-10.0)
[2021-03-06 15:19] LABS: ALBUMIN 3.5 GM/DL (3.2-5.2); ALT/SGPT 11 U/L (12-78); BILIRUBIN,DIRECT 0.1 MG/DL (0.0-0.2); BILIRUBIN,TOTAL 0.5 MG/DL (0.2-1.0); BLOOD UREA NITROGEN 22 MG/DL (7-18); CALCIUM LEVEL 8.8 MG/DL (8.8-10.2); CARBON DIOXIDE LEVEL 26 MEQ/L (21-32); CHLORIDE LEVEL 106 MEQ/L (98-107); CK-MB VALUE MASS 3.1 NG/ML (<3.6); CPK CREATINE PHOSPHOKINASE 106 U/L (39-308); CREATININE FOR GFR 1.36 MG/DL (0.70-1.30); FREE T4 0.97 NG/DL (0.76-1.46); GLOMERULAR FILTRATION RATE 53.8 (>42); GLUCOSE, FASTING 135 MG/DL (70-100); MB/CK RELATIVE INDEX 2.92 (< OR =4); POTASSIUM SERUM 4.4 MEQ/L (3.5-5.1); SODIUM LEVEL 141 MEQ/L (136-145); THYROID STIMULATING HORMONE 0.716 uIU/ML (0.358-3.740); TOTAL PROTEIN 7.3 GM/DL (6.4-8.2); TROPONIN I < 0.02 NG/ML (< 0.10)
--- NOTE | 2021-03-06 15:19 | REP ---
INDICATION: CVA - Nursing interventions must not delay CT. COMPARISON: Comparison is made with today's head CT. Comparison CT angiography September 07, 2020. TECHNIQUE: CT contrast dose: 100 ml of intravenous Isovue 370. CT technique: Helical scanning is acquired. 2 mm axial images are reformatted. Maximal intensity projection and multiplanar re-formation images are generated along with 3-D surface rendered color imaging. FINDINGS: There is good opacification of the arterial tree. Digital mushroom picker view shows cervical spine fusion hardware. The right distal vertebral artery is again noted to be narrowed due to extensive calcific plaquing. Distal to this, the right distal vertebral artery is patent but smaller than its left-sided counterpart. There is mild calcific plaquing in the left distal vertebral artery. There is a diffuse slightly irregular atherosclerotic narrowing of the basilar artery unchanged. Posterior cerebral arteries are patent bilaterally. Superior cerebellar arteries are intact. The posterior communicating arteries are patent bilaterally. There is moderate calcific plaquing in the distal internal carotid arteries at the carotid siphons bilaterally unchanged. The anterior and middle cerebral arteries are intact bilaterally. There is no evidence of burton aneurysm, arteriovenous malformation, or vessel cutoff. The dural sinuses appear patent. The right sigmoid sinus is larger than the left. This is unchanged. 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 Diffuse narrowing of the basilar artery unchanged with slight atherosclerotic irregularity. No other high-grade stenosis or occlusion seen. <Electronically signed by Ismael Martinez > 03/06/21 [id number]
--- NOTE | 2021-03-06 15:23 | REP ---
INDICATION: CVA - Nursing interventions must not delay CT COMPARISON: Comparison CT angiography September 07, 2020. TECHNIQUE: Contrast enhancement dose is 100 mL of intravenous Isovue 370. Helical scanning is acquired. 2 mm axial images are re-formatted. Coronal and sagittal MPR images are generated. Coronal and sagittal MIP and oblique MPR images are generated. 3D surface rendered images are generated and viewed rotationally. FINDINGS: There is good opacification of the arterial tree. The great vessel origins show some calcification but no high-grade stenosis. The left subclavian artery is moderately calcified and mildly narrowed. The common carotid arteries are patent bilaterally. There is atherosclerotic plaquing in the distal CCA on the left and calcific plaquing and noncalcific plaquing or visible in the carotid bifurcation. There is approximately 30% narrowing of the proximal ICA on the left. The cervical ICA is tortuous on the left. Vascular calcification is seen fairly heavily in the carotid siphon on the left as noted on the CT brain study. The right common carotid artery is unremarkable. There is calcific plaquing in the distal CCA and circumferential narrowing of the origin of the ICA is seen on the right, proximally 60%. The cervical ICA segment is quite tortuous but widely patent. There is moderate to marked atherosclerotic calcification in the carotid siphon on the right. The vertebral arteries are patent bilaterally right is a smaller than left. There is focal calcification and significant narrowing of the distal vertebral artery on the right at the level of the foramen magnum. IMPRESSION: 30% narrowing of the proximal ICA on the left due to calcific and noncalcific plaquing. Approximately 60% narrowing of the proximal ICA origin on the right due to calcific plaquing. Findings are unchanged. Left dominant vertebrals. Distal vertebral artery calcification and narrowing on the right. No significant change from the September 07, 2020 study. <Electronically signed by Ismael Martinez > 03/06/21 [id number]
[2021-03-06 15:37] LABS: RSV AMPLIFICATION NEGATIVE (NEGATIVE)
[2021-03-06] MEDS ORDERED: cefTRIAXone SOD 1 GM in D5W MINI-BAG PLUS 50 ML IV ONE (15:55)
[2021-03-06] MEDS ORDERED: AZITHROMYCIN INJ 500 MG, VIAL MATE ADAPTER 1 EACH in NS 250 ML IV ONE (15:55)
[2021-03-06] MEDS ORDERED: ACETAMINOPHEN TAB 650MG DOSE (2X325MG) PO PRN (16:25)
--- NOTE | 2021-03-06 17:03 | HPEPDOC ---
[facility] Medical History & Physical Date of Admission Mar 06, 2021 Date of Service: Mar 06, 2021 Primary Care Physician: Wilfred Noel M.D. Attending Physician: SARAHY WINN DO History and Physical CHIEF COMPLAINT: Loss of balance and slurred speech HISTORY OF PRESENT ILLNESS: Patient is a 80-year-old male with a history of Parkinson's disease who presented to the emergency department via EMS after he began to have issues with his balance. Patient states around 930 this morning, he got out of bed and was having difficulty with his balance. Patient stated that he fell but caught himself before going all the way to the ground. Patient states that he has been feeling weird since about 5:30 in the morning but did not know what was causing it. Patient states that he was also dealing with some slurred speech. About 1:30 PM, he decided to call EMS who brought him into the emergency department. In the emergency department, patient was experiencing some slurred speech and some facial droop which is since resolved. Patient states that he will occasionally get episodes will have issues speaking due to his Parkinson's disease. Patient does not know if he has a history of strokes in the past. Patient states that he is constipated and keeps close track of his bowels because he had issues with bowel obstructions in the past. Patient is otherwise feeling well today. PAST MEDICAL HISTORY: 1. Hypertension. 2. Grade 1 diastolic dysfunction. 3. History of nicotine and alcohol abuse. 4. Anemia 5. Lumbar degenerative joint disease 6. BPH 7. Chronic depression anxiety 8. Impaired fasting glucose 9. Alcoholic fatty liver disease 10. 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 Pseudogout 13. Parkinson's disease 14. History of TIA in 07/01/2020, MRI for acute CVA but CTA head/neck severe narrowing vertebrals right greater than left moderate distal internal carotid narrowing as well PAST SURGICAL HISTORY: 1. Multiple colonoscopies. 2. Transforaminal lumbar interbody fusion. 3. L1-S1 posterior decompression with fusion T11-S1. 4. TURP 5. Multiple adhesion lysis surgeries 6. Abscess with small bowel resection SOCIAL HISTORY: Patient states that he does smoke about 4 to 5 cigarettes a day. Patient quit drinking alcohol few months ago. Patient denies any illicit drug use and lives at home alone FAMILY HISTORY: Father at 85 years old emphysema. Mother at 92 years old of Alzheimer's ALLERGIES: Please see below. REVIEW OF SYSTEMS: General: Patient denies fevers HEENT: Patient denies headaches Cardiovascular: Patient denies chest pain Respiratory: Patient denies shortness of breath, cough GI: Patient denies abdominal pain, nausea, vomiting, diarrhea : Patient denies increased frequency or pain with urination Extremities: Patient denies swelling or pain in extremities Neurological: Patient denies numbness or tingling in legs Skin: Patient denies any new rashes or lesions. Hematologic: Patient denies any easy bruising. Lymphatic: Patient denies any lumps lumps or bumps in neck, axilla, or groin HOME MEDICATIONS: Please see below. PHYSICAL EXAMINATION: VITAL SIGNS: Temperature 96.7, pulse 58, respiratory rate 18, blood pressure 135/61, pulse oximetry 96% on room air. General: Alert and oriented male patient with some difficult to understand speech who was sitting up on the stretcher when I walked in. Patient did not appear to be in acute distress. HEENT: Normocephalic, atraumatic, moist mucous membranes. Neck: No lymphadenopathy or thyromegaly Cardiac: Regular rate and rhythm, no murmurs, normal S1, normal S2 Pulm: Clear to auscultation bilaterally. No wheezes, rhonchi, rales Abd: Nondistended, nontender to palpation, normal bowel sounds Ext: No edema bilateral lower extremities Neuro: Cranial nerves III through XII intact bilaterally, 5/5 strength in upper and lower extremities bilaterally, patient reports equal sensation light touch in all dermatomes tested of the upper and lower extremities bilaterally. [id number] and [id number] testing normal bilaterally. No pronator drift. Patient has some difficult to understand speech but does not appear to be slurring his words Skin: Skin of the head, neck, upper and lower extremities was examined did not show any evidence of rash or wounds. LABORATORY DATA: See below. IMAGING: CT of the head performed without contrast on 03/06/2021 was reported to show diffuse atrophy, vascular calcification, small vessel changes. 2 old appearing lacunar infarcts in the left basal ganglia. No acute intracranial abnormality seen. Chest x-ray performed on 03/06/2021 was reported to show new right lung airspace opacities described as new patchy opacities seen in the right middle lower lung zones. Pneumonia cannot be ruled out. CT angiogram of the head performed with contrast on 03/06/2021 is reported to show high-grade stenosis of the distal right vertebral artery due to calcific plaquing unchanged. Diffuse narrowing of the basilar artery unchanged with slight arthrosclerotic irregularity. No other high-grade stenosis or occlusion seen. CT angiogram of the neck performed with IV contrast was reported to show 03/06/2021 was reported to show 30% narrowing of the proximal internal carotid artery on the left due to calcific and noncalcific plaquing. Approximately 60% narrowing in the proximal internal carotid artery origin on the right due to calcific plaquing. Findings are unchanged. Left dominant vertebrals distal vertebral artery calcification and narrowing on the right. No significant change from the September 07, 2020 study. MICROBIOLOGY: Please see below. ASSESSMENT: 80-year-old male presented with balance difficulties with history of TIA and known vascular disease who will be admitted for further work-up for TIA/CVA . PLAN: 1. TIA/CVA.. Has a history of TIA from June 2020. Patient's neurological symptoms have mostly resolved with the exception of his garbled speech. Patient does not have any facial droop at this time. Patient is already on aspirin and Plavix. CT angiogram of the head and neck do not show any changed lesions or new major intracranial stenosis from previous studies. MRI of the brain will be ordered and performed. Lipid panel and A1c will be checked tomorrow. Every 4 hours neurochecks have been ordered. 2. Community-acquired pneumonia. Chest x-ray shows possible infiltrate. Patient does not have a white count nor does he complain of shortness of breath. Patient received ceftriaxone and azithromycin in the emergency department. Pro calcitonin has been ordered. If procalcitonin negative, antibiotics can be stopped. If procalcitonin positive, antibiotic should be continued. 3. Hypertension. If the patient did have an ischemic stroke, permissive hypertension can be allowed for the first 24 hours. We will attempt acute blood pressure between 140 and 180 systolic. 4. Hyperlipidemia. We will continue the patient's home medications. 5. Parkinson's disease. We will continue the patient's home medications. 6. Anxiety depression. We will continue home medications. 7. BPH. We will continue the patient's home medications. 8. Constipation. We will continue with the patient's home medications. 9. DVT prophylaxis: Heparin 10. CODE STATUS: Patient would like to be DNR/DNI. Patient says he has paperwork that is filled out in the past with his primary care provider. Patient states that he understands that if his heart were to stop beating we do not perform CPR that he would . Patient also states he does not want a breathing tube down his throat. Patient was made DNR/DNI. Disposition: Patient be admitted to the medical surgical floor with telemetry. Patient will need physical and occupational therapy. ARU screen has been placed. I do think the patient will be discharged after greater than or equal to 2 midnight stay. Vital Signs Vital Signs Date Time Temp Pulse Resp B/P (MAP) Pulse Ox O2 Delivery O2 Flow Rate FiO2 03/06/21 14:51 135/61 (85) 03/06/21 14:31 96.7 58 18 96 Room Air Laboratory Data Labs 24H Laboratory Tests 2 03/06/21 14:20: POC Glucose (Misc Panel) 139H, POC Sodium (Misc Panel) 142, POC Potassium (Misc Panel) 4.4, POC Chloride (Misc Panel) 104, POC Total CO2 (Misc Panel) 26.0, POC Blood Urea Nitrogen (Misc Panel 23, POC Ionized Calcium (Misc Panel) 4.7, POC Creatinine (Misc Panel) 1.3, POC Hematocrit (Misc Panel) 57.0H 03/06/21 14:34: Prothrombin Time 13.6, Prothromb Time International Ratio 1.00, Activated Partial Thromboplast Time 40.5H, Anion Gap 9, Glomerular Filtration Rate 53.8, Calcium Level 8.8, Total Bilirubin 0.5, Direct Bilirubin 0.1, Aspartate Amino Transf (AST/SGOT) 18, Alanine Aminotransferase (ALT/SGPT) 11L, Alkaline Phosphatase 63, Total Creatine Kinase 106, Creatine Kinase MB 3.1, Creatine Kinase MB Relative Index 2.92, Troponin I < 0.02, Total Protein 7.3, Albumin 3.5, Albumin/Globulin Ratio 0.9, Thyroid Stimulating Hormone (TSH) 0.716, Free Thyroxine 0.97 03/06/21 14:46: Immature Granulocyte % (Auto) 0.3, Neutrophils (%) (Auto) 76.3H, Lymphocytes (%) (Auto) 11.4L, Monocytes (%) (Auto) 9.8H, Eosinophils (%) (Auto) 1.9, Basophils (%) (Auto) 0.3, Neutrophils # (Auto) 4.9, Lymphocytes # (Auto) 0.7L, Monocytes # (Auto) 0.6, Eosinophils # (Auto) 0.1, Basophils # (Auto) 0.0, Nucleated Red Blood Cells % (auto) 0.0, Coronavirus (COVID-19)(PCR) NEGATIVE, Influenza Type A (RT-PCR) NEGATIVE, Influenza Type B (RT-PCR) NEGATIVE, Respiratory Syncytial Virus (PCR) NEGATIVE CBC/BMP Laboratory Tests 03/06/21 14:34 03/06/21 14:46 Microbiology Microbiology 03/06/21 Blood Culture, Received Pending Home Medications Scheduled Acetaminophen (Acetaminophen) 500 Mg Tablet, 1,000 MG PO TID Alfuzosin HCl (Alfuzosin HCl ER) 10 Mg Tab, 10 MG PO DAILY Amitriptyline HCl (Amitriptyline HCl) 50 Mg Tab, 50 MG PO QHS Aspirin (Aspirin) 81 Mg Tab.chew, 1 TAB PO DAILY for pain Atorvastatin Calcium (Atorvastatin Calcium) 20 Mg Tablet, 40 MG PO QHS Carbidopa/Levodopa (Carbidopa-Levodopa 25-100 Tab) 1 Each Tablet, 2 TAB PO BID Ciprofloxacin Hcl (Ciprofloxacin HCl) 0.3% 2.5ML Drops, 0.3 % OD QID Clopidogrel Bisulfate (Clopidogrel) 75 Mg Tablet, 75 MG PO DAILY Finasteride (Finasteride) 5 Mg Tab, 5 MG PO DAILY Losartan Potassium (Losartan Potassium) 100 Mg Tablet, 100 MG PO DAILY Rosuvastatin Calcium (Rosuvastatin Calcium) 20 Mg Tablet, 20 MG PO QHS Sennosides/Docusate Sodium (Senexon-S 50-8.6 mg Tablet) 1 Each Tablet, 2 EACH PO BID Scheduled PRN Ketorolac Tromethamine (Ketorolac Tromethamine) 0.4% Drops, 1 DROP OD QID PRN for pain Polyethylene Glycol 3350 (Miralax) 1 Pow Pow, 17 GM PO DAILY PRN for CONSTIP ATION Miscellaneous Medications Amlodipine Besylate (Amlodipine Besylate) 10 Mg Tablet Allergies Coded Allergies: No Known Allergies (Unverified , 09/29/18) A-FIB/CHADSVASC A-FIB History Current/History of A-Fib/PAF?: No SARAHY WINN DO Mar 06, 2021 17:03
[2021-03-06] MEDS ORDERED: ASPI81TA26 PO (18:02)
[2021-03-06] MEDS ORDERED: EZET10TA21 PO (18:02)
[2021-03-06] MEDS ORDERED: PANT40TA29 PO (18:02)
[2021-03-06] MEDS ORDERED: LOSA25TA14 PO (18:02)
[2021-03-06] MEDS ORDERED: ROSU40TA4 PO (18:02)
[2021-03-06] MEDS ORDERED: HOME MED LIST COMPLETE! XX SCH (18:05)
--- NOTE | 2021-03-06 19:27 | ECGEPIP ---
[facility] - ED Test Date: 2021-03-06 Pat Name: RACHAEL FOREMAN Department: Room: [place] [address] Gender: Male Verification Engineer: GUERRERO : 1940 Requested By: ROBE Morgan Order Number: [id number] Reading MD: Chirag Hi Measurements Intervals [place] Rate: 52 P: OR: QRS: -9 QRSD: 74 T: 36 QT: 432 QTc: 401 Interpretive Statements Junctional rhythm Cannot rule out Anterior infarct , age undetermined BASELINE ARTIFACT AFFECTS INTERPRETATION Electronically Signed on 03-06-2021 19:27:43 EDT by Chirag Hi
[2021-03-06 20:10] VITALS: BP 140/65
[2021-03-06] MEDS ORDERED: DOCUSATE SODIUM 100MG CAPSULE PO SCH (21:00)
--- NOTE | 2021-03-06 21:21 | REPVR ---
PROCEDURE INFORMATION: Exam: MR Head Without Contrast Exam date and time: 03/06/2021 7:50 PM Age: 80 years old Clinical indication: Altered mental status/memory loss; Patient HX: Slurred speech, facial droop, R/O acute CVA TECHNIQUE: Imaging protocol: MR of the head without contrast. COMPARISON: CT Head without contrast 03/06/2021 1:17 PM FINDINGS: Brain: Small stippled foci of true diffusion restriction in the right external capsule extending into the pillai radiata with correlative early cytotoxic edema on the T2 weighted imaging in keeping with tiny recent acute to subacute lacunar infarcts. No evidence of infarct hemorrhagic conversion. The brain demonstrates generalized volume loss. Patchy foci of increased signal intensity in the deep white matter on the T2 weighted imaging most likely representing chronic small vessel ischemic change. There is a chronic left external capsule/subinsular lacunar infarct. Cerebral ventricles: The ventricles are enlarged in keeping with volume loss. Bones/joints: Upper cervical spine postoperative changes. Paranasal sinuses: Retention cysts or polyps in the sphenoid sinuses. Mastoid air cells: Normal as visualized. No mastoid effusion. Orbital cavity: Unremarkable. Soft tissues: Unremarkable. IMPRESSION: Recent acute to subacute right external capsule/pillai radiata lacunar infarcts. Electronically signed by: Ofelia Restrepo On 03/06/2021 21:20:50 PM
[2021-03-06] MEDS: ROSUVASTATIN 10 MG TAB (CRESTOR) PO SCH (21:58)
[2021-03-06] MEDS: AMITRIPTYLINE 50 MG TAB PO SCH (21:58)
[2021-03-06] MEDS: SENOKOT S TAB PO SCH (21:58)
[2021-03-06] MEDS: EZETIMIBE 10MG TABLET (ZETIA) PO SCH (21:59)
[2021-03-06] MEDS: SINEMET 25-100 MG TAB PO SCH (21:59)
[2021-03-07 02:00] VITALS: BP 131/60
[2021-03-07 05:43] LABS: HEMATOCRIT 34.7 % (42.0-52.0); HEMOGLOBIN 11.3 g/dl (13.5-17.5); MEAN CORPUSCULAR HEMOGLOBIN 31.8 pg (27.0-33.0); MEAN CORPUSCULAR HGB CONC 32.6 g/dl (32.0-36.5); MEAN CORPUSCULAR VOLUME 97.7 fl (80.0-96.0); PLATELET COUNT, AUTOMATED 202 10^3/uL (150-450); RED BLOOD COUNT 3.55 10^6/uL (4.30-6.10); WHITE BLOOD COUNT 7.3 10^3/uL (4.0-10.0)
[2021-03-07 06:00] VITALS: BP 138/61
[2021-03-07 06:11] LABS: BLOOD UREA NITROGEN 21 MG/DL (7-18); CALCIUM LEVEL 8.5 MG/DL (8.8-10.2); CARBON DIOXIDE LEVEL 27 MEQ/L (21-32); CHLORIDE LEVEL 108 MEQ/L (98-107); CHOLESTEROL LEVEL 217 MG/DL (<200); CHOLESTEROL RISK RATIO 4.931 (<5); GLOMERULAR FILTRATION RATE > 60.0 (>42); GLUCOSE, FASTING 110 MG/DL (70-100); HDL CHOLESTEROL 44 MG/DL (>40); LDL CHOLESTEROL 158 MG/DL (<100); MAGNESIUM LEVEL 2.1 MG/DL (1.8-2.4); NON-HDL-C 173 MG/DL; POTASSIUM SERUM 4.1 MEQ/L (3.5-5.1); SODIUM LEVEL 143 MEQ/L (136-145); TRIGLYCERIDES LEVEL 76 MG/DL (<150)
[2021-03-07 07:05] LABS: HEMOGLOBIN A1c 6.1 %
[2021-03-07] MEDS: SENOKOT S TAB PO SCH ×2 (08:18→21:12)
[2021-03-07] MEDS: SINEMET 25-100 MG TAB PO SCH ×2 (08:19→21:12)
[2021-03-07] MEDS: LOSARTAN 25 MG TAB PO SCH (08:19)
[2021-03-07] MEDS: ASPIRIN 81MG ENTERIC TABLET PO SCH (08:19)
[2021-03-07] MEDS: PANTOPRAZOLE 40MG TAB (PROTONIX) PO SCH (08:19)
[2021-03-07] MEDS: CLOPIDOGREL 75 MG TAB PO SCH (08:19)
[2021-03-07] MEDS: HEPARIN SOD (PORCINE) 5000UNITS/ML 1ML VIAL/SYRINGE SQ SCH ×2 (08:19→21:12)
[2021-03-07] MEDS: FINASTERIDE 5 MG TAB PO SCH (08:19)
[2021-03-07] MEDS: MIRALAX *UNIT DOSE* 17GM PACKET PO PRN (08:29)
[2021-03-07] MEDS ORDERED: FLUBLOK(EGG FREE)(QUAD)INFLUENZA VACC 0.5ML SYRINGE 18YRS & OLDER IM ONE (09:00)
[2021-03-07] MEDS: METAMUCIL (PSYLLIUM) PACKET PO SCH (09:00)
[2021-03-07] MEDS ORDERED: PREVNAR 13 VACCINE SYRINGE IM ONE (09:00)
--- NOTE | 2021-03-07 11:58 | IPNPDOC ---
Text Note Date of Service The patient was seen on 03/07/21. NOTE Subjective: Patient has increased left-sided facial droop and left arm weakness. Also patient developed drooling from the left side of his mouth. Objective: GENERAL APPEARANCE: NAD HEENT: no scleral icterus, no JVD, EOMI CARDIOVASCULAR: S1S2 LUNGS: Diminished lung sounds bilaterally ABDOMEN: soft & not tender w palpation MUSCULOSKELETAL: no cyanosis, no swelling INTEGUMENT: no generalized pallor NEUROLOGICAL: follows commands, left mouth droop, strength of upper extremities 3 out of 5, strength of lower extremities 3 out of 5 Assessment and plan Patient is 80-year-old male presented with balance difficulties with history of TIA and known vascular disease was found to have acute to subacute right external capsule/pillai radiata lacunar infarcts CVA Patient was found to have acute to subacute right external capsule/pillai radiata lacunar infarcts on brain MRI CTA neck shows stenosis of right internal carotid artery of 60%. No vascular surgeon coverage this week. Follow-up with vascular surgeon in the outpatient settings We will continue aspirin and Plavix Follow-up with neurologist in the outpatient settings Echo pending Continue statin ARU screen Speech evaluation Because of worsening neurological symptoms in the morning I will repeat CT head Pneumonia rule out Procalcitonin negative, patient does not have any cough or sputum production DC antibiotics Hypertension Blood pressure under control Continue home meds Hyperlipidemia Continue statin Parkinson's disease Continue home meds Anxiety/depression Continue home medications BPH Continue home meds Constipation. We will continue with the patient's home medications. DVT prophylaxis: Heparin VS,Fishbone, I+O VS, Fishbone, I+O Laboratory Tests 03/06/21 14:34 03/06/21 14:46 03/07/21 05:16 Vital Signs Date Time Temp Pulse Resp B/P (MAP) Pulse Ox O2 Delivery O2 Flow Rate FiO2 03/07/21 08:19 137/64 03/07/21 06:00 97.2 72 17 95 Room Air I&O- Last 24 Hours up to 6 AM 03/07/21 06:00 Intake Total 1205 ml Balance 1205 ml MARGARITA RUIZ DO Mar 07, 2021 11:58
--- NOTE | 2021-03-07 12:15 | REP ---
INDICATION: CVA. COMPARISON: None. TECHNIQUE: Contiguous 5 mm thick axial projection images were obtained through the head. 2D coronal reconstructions were performed. FINDINGS: There are chronic lacunar infarctions in both basal ganglia. There is mild diffuse cerebral atrophy with concomitant ventriculomegaly. There is no evidence of acute intracranial hemorrhage or infarction. There are no abnormal intracranial masses or mass effects. There is calcific vascular disease of the intracranial portion of both internal carotid arteries and both vertebral arteries. The skull base and calvarium are normal. There is a right scleral buckle there is mucosal thickening of the multiple ethmoidal air cells bilaterally and the left frontal sinus. There are mucous retention cysts or polyps in both sphenoid sinuses. IMPRESSION: 1. Cerebral atrophy without evidence of acute intracranial pathology. 2. Chronic lacunar infarctions in both basal ganglia. 3. 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 4. Mild chronic ethmoidal, frontal and sphenoidal sinusitis. <Electronically signed by Bob Penn > 03/07/21 0907
[2021-03-07 14:00] VITALS: BP 126/65
[2021-03-07] MEDS: ROSUVASTATIN 10 MG TAB (CRESTOR) PO SCH (21:12)
[2021-03-07] MEDS: EZETIMIBE 10MG TABLET (ZETIA) PO SCH (21:13)
[2021-03-07] MEDS: AMITRIPTYLINE 50 MG TAB PO SCH (21:13)
[2021-03-07 22:00] VITALS: BP 158/72
[2021-03-08 06:00] VITALS: BP 129/70
[2021-03-08 06:05] LABS: HEMATOCRIT 36.1 % (42.0-52.0); HEMOGLOBIN 11.7 g/dl (13.5-17.5); MEAN CORPUSCULAR HEMOGLOBIN 31.5 pg (27.0-33.0); MEAN CORPUSCULAR HGB CONC 32.4 g/dl (32.0-36.5); PLATELET COUNT, AUTOMATED 202 10^3/uL (150-450); RED BLOOD COUNT 3.72 10^6/uL (4.30-6.10); WHITE BLOOD COUNT 7.9 10^3/uL (4.0-10.0)
[2021-03-08 06:33] LABS: BLOOD UREA NITROGEN 19 MG/DL (7-18); CALCIUM LEVEL 9.1 MG/DL (8.8-10.2); CARBON DIOXIDE LEVEL 27 MEQ/L (21-32); CHLORIDE LEVEL 108 MEQ/L (98-107); CREATININE FOR GFR 1.14 MG/DL (0.70-1.30); GLOMERULAR FILTRATION RATE > 60.0 (>42); GLUCOSE, FASTING 105 MG/DL (70-100); POTASSIUM SERUM 4.3 MEQ/L (3.5-5.1); SODIUM LEVEL 140 MEQ/L (136-145)
[2021-03-08] MEDS: PANTOPRAZOLE 40MG TAB (PROTONIX) PO SCH (08:00)
[2021-03-08] MEDS: FINASTERIDE 5 MG TAB PO SCH (08:00)
[2021-03-08] MEDS: HEPARIN SOD (PORCINE) 5000UNITS/ML 1ML VIAL/SYRINGE SQ SCH ×2 (08:00→21:03)
[2021-03-08] MEDS: SINEMET 25-100 MG TAB PO SCH ×2 (08:00→21:01)
[2021-03-08] MEDS: SENOKOT S TAB PO SCH ×2 (08:00→21:02)
[2021-03-08] MEDS: MIRALAX *UNIT DOSE* 17GM PACKET PO PRN (08:00)
[2021-03-08] MEDS: ASPIRIN 81MG ENTERIC TABLET PO SCH (08:00)
[2021-03-08] MEDS: METAMUCIL (PSYLLIUM) PACKET PO SCH (08:00)
[2021-03-08] MEDS: CLOPIDOGREL 75 MG TAB PO SCH (08:00)
[2021-03-08] MEDS: LOSARTAN 25 MG TAB PO SCH (08:01)
--- NOTE | 2021-03-08 10:46 | IPNPDOC ---
Text Note Date of Service The patient was seen on 03/08/21. NOTE Subjective: No new acute events overnight. In the morning patient developed cough and choking when he ate breakfast. Objective: GENERAL APPEARANCE: NAD HEENT: no scleral icterus, no JVD, EOMI CARDIOVASCULAR: S1S2 LUNGS: Diminished lung sounds bilaterally ABDOMEN: soft & not tender w palpation MUSCULOSKELETAL: no cyanosis, no swelling INTEGUMENT: no generalized pallor NEUROLOGICAL: follows commands, left mouth droop, strength of upper extremities 3 out of 5, strength of lower extremities 3 out of 5 Assessment and plan Patient is 80-year-old male presented with balance difficulties with history of TIA and known vascular disease was found to have acute to subacute right external capsule/pillai radiata lacunar infarcts CVA/oropharyngeal dysphagia Patient was found to have acute to subacute right external capsule/pillai ra diata lacunar infarcts on brain MRI CTA neck shows stenosis of right internal carotid artery of 60%. No vascular surgeon coverage this week. Follow-up with vascular surgeon in the outpatient settings We will continue aspirin and Plavix Follow-up with neurologist in the outpatient settings Echo pending Continue statin ARU screen Speech evaluation. N.p.o. for now Repeated CT head negative for new stroke or bleeding Pneumonia rule out Procalcitonin negative, patient does not have any cough or sputum production DC antibiotics Hypertension Blood pressure under control Continue home meds Hyperlipidemia Continue statin Parkinson's disease Continue home meds Anxiety/depression Continue home medications BPH Continue home meds Constipation. We will continue with the patient's home medications. DVT prophylaxis: Heparin VS,Fishbone, I+O VS, Fishbone, I+O Laboratory Tests 03/08/21 05:13 Vital Signs Date Time Temp Pulse Resp B/P (MAP) Pulse Ox O2 Delivery O2 Flow Rate FiO2 03/08/21 08:01 119/75 03/08/21 06:00 97.8 61 20 92 Room Air I&O- Last 24 Hours up to 6 AM 03/08/21 06:00 Intake Total 1210 ml Balance 1210 ml MARGARITA RUIZ DO Mar 08, 2021 10:46
[2021-03-08] MEDS: D5W/0.9% SODIUM CHLORIDE 1,000 ML IV SCH ×2 (11:04→23:15)
[2021-03-08 14:00] VITALS: BP 137/85
[2021-03-08] MEDS ORDERED: TAMSULOSIN 0.4 MG CAP PO ONE (19:00)
[2021-03-08] MEDS: ROSUVASTATIN 10 MG TAB (CRESTOR) PO SCH (21:01)
[2021-03-08] MEDS: AMITRIPTYLINE 50 MG TAB PO SCH (21:02)
[2021-03-08] MEDS: EZETIMIBE 10MG TABLET (ZETIA) PO SCH (21:25)
[2021-03-08 22:00] VITALS: BP 145/63
[2021-03-09 05:33] LABS: HEMATOCRIT 36.1 % (42.0-52.0); HEMOGLOBIN 11.7 g/dl (13.5-17.5); MEAN CORPUSCULAR HEMOGLOBIN 31.5 pg (27.0-33.0); MEAN CORPUSCULAR HGB CONC 32.4 g/dl (32.0-36.5); PLATELET COUNT, AUTOMATED 187 10^3/uL (150-450); RED BLOOD COUNT 3.72 10^6/uL (4.30-6.10); WHITE BLOOD COUNT 6.5 10^3/uL (4.0-10.0)
[2021-03-09 05:55] LABS: BLOOD UREA NITROGEN 17 MG/DL (7-18); CALCIUM LEVEL 8.5 MG/DL (8.8-10.2); CARBON DIOXIDE LEVEL 29 MEQ/L (21-32); CHLORIDE LEVEL 109 MEQ/L (98-107); CREATININE FOR GFR 1.09 MG/DL (0.70-1.30); GLOMERULAR FILTRATION RATE > 60.0 (>42); GLUCOSE, FASTING 106 MG/DL (70-100); SODIUM LEVEL 141 MEQ/L (136-145)
[2021-03-09 06:00] VITALS: BP 143/64
[2021-03-09] MEDS: METAMUCIL (PSYLLIUM) PACKET PO SCH (08:51)
[2021-03-09] MEDS: TAMSULOSIN 0.4 MG CAP PO SCH (08:51)
[2021-03-09] MEDS: FINASTERIDE 5 MG TAB PO SCH (08:51)
[2021-03-09] MEDS: ASPIRIN 81MG ENTERIC TABLET PO SCH (08:51)
[2021-03-09] MEDS: LOSARTAN 25 MG TAB PO SCH (08:51)
[2021-03-09] MEDS: CLOPIDOGREL 75 MG TAB PO SCH (08:51)
[2021-03-09] MEDS: PANTOPRAZOLE 40MG TAB (PROTONIX) PO SCH (08:52)
[2021-03-09] MEDS: SENOKOT S TAB PO SCH ×2 (08:52→20:49)
[2021-03-09] MEDS: SINEMET 25-100 MG TAB PO SCH ×2 (08:52→20:49)
[2021-03-09] MEDS: HEPARIN SOD (PORCINE) 5000UNITS/ML 1ML VIAL/SYRINGE SQ SCH ×2 (09:04→20:49)
[2021-03-09] MEDS: D5W/0.9% SODIUM CHLORIDE 1,000 ML IV SCH (12:16)
[2021-03-09] MEDS ORDERED: VARIBAR NECTAR 40% w/v 240ML SUSP BTL As Ordered ONE (12:39)
[2021-03-09] MEDS ORDERED: BARIUM SULFATE 700 MG TABLET (E-Z-DISK) As Ordered ONE (12:39)
[2021-03-09] MEDS ORDERED: VARIBAR PUDDING 40% w/v 230ML TUBE As Ordered ONE (12:39)
[2021-03-09] MEDS ORDERED: E-Z-PAQUE 96% w/w SUSP 176GM BTL As Ordered ONE (12:39)
--- NOTE | 2021-03-09 12:55 | IPNPDOC ---
Text Note Date of Service The patient was seen on 03/09/21. NOTE Subjective: No new acute events overnight. In the morning patient developed cough and choking when he took medications. Objective: GENERAL APPEARANCE: NAD HEENT: no scleral icterus, no JVD, EOMI CARDIOVASCULAR: S1S2 LUNGS: Diminished lung sounds bilaterally ABDOMEN: soft & not tender w palpation MUSCULOSKELETAL: no cyanosis, no swelling INTEGUMENT: no generalized pallor NEUROLOGICAL: follows commands, left mouth droop, strength of upper extremities 3 out of 5, strength of lower extremities 3 out of 5 Assessment and plan Patient is 80-year-old male presented with balance difficulties with history of TIA and known vascular disease was found to have acute to subacute right external capsule/pillai radiata lacunar infarcts CVA/oropharyngeal dysphagia Patient was found to have acute to subacute right external capsule/pillai radiata lacunar infarcts on brain MRI CTA neck shows stenosis of right internal carotid artery of 60%. No vascular surgeon coverage this week. Follow-up with vascular surgeon in the outpatient settings continue aspirin and Plavix Follow-up with neurologist in the outpatient settings Echo pending Continue statin Speech evaluation. N.p.o. for now Repeated CT head negative for new stroke or bleeding Await barium swallow study Pneumonia rule out Procalcitonin negative, patient does not have any cough or sputum production DC antibiotics Hypertension Blood pressure under control Continue home meds Hyperlipidemia Continue statin Parkinson's disease Continue home meds Anxiety/depression Continue home medications BPH Continue home meds Constipation. continue with the patient's home medications. DVT prophylaxis: Heparin VS,Fishbone, I+O VS, Fishbone, I+O Laboratory Tests 03/09/21 05:13 Vital Signs Date Time Temp Pulse Resp B/P (MAP) Pulse Ox O2 Delivery O2 Flow Rate FiO2 03/09/21 06:00 98.3 52 20 143/64 (90) 95 Room Air I&O- Last 24 Hours up to 6 AM 03/09/21 06:00 Intake Total 1820 ml Output Total 1500 ml Balance 320 ml MARGARITA RUIZ DO Mar 09, 2021 12:55
[2021-03-09 14:00] VITALS: BP 130/78
--- NOTE | 2021-03-09 16:30 | REP ---
INDICATION: CVA. COMPARISON: None. TECHNIQUE: The procedure was performed by Yodit Tariq [facility], under the direct supervision of Dr. Martinez. The procedure was performed with Merle Mena from speech pathology present. 5 ml aliquots of nectar thick, honey thick consistency, pudding, and mixed fruit with a honey consistency base consistency barium was administered. FINDINGS: Aspiration was visualized with nectar thick consistency, flash penetration was visualized with both honey and mixed with honey thick base consistency. The detailed report of this examination will be provided by speech pathology. IMPRESSION: Penetration and aspiration as described above, a detailed report will be provided by speech pathology. 2.7 minutes of fluoroscopy time was utilized for this procedure. Some fluoroscopic images are performed with last image hold technology. These images require no additional radiation <Electronically signed by Yodit Tariq > 03/09/21 1410 <Electronically signed by Ismael Martinez > 03/09/21 [id number]
[2021-03-09] MEDS: AMITRIPTYLINE 50 MG TAB PO SCH (20:49)
[2021-03-09] MEDS: ROSUVASTATIN 10 MG TAB (CRESTOR) PO SCH (20:49)
[2021-03-09] MEDS: EZETIMIBE 10MG TABLET (ZETIA) PO SCH (20:49)
[2021-03-09] MEDS ORDERED: MOM 30ML SUSPENSION UDC PO PRN (21:30)
[2021-03-09 22:00] VITALS: BP 135/89
[2021-03-10 06:00] VITALS: BP 117/72
[2021-03-10 06:08] LABS: HEMATOCRIT 39.2 % (42.0-52.0); HEMOGLOBIN 12.8 g/dl (13.5-17.5); MEAN CORPUSCULAR HEMOGLOBIN 31.4 pg (27.0-33.0); MEAN CORPUSCULAR HGB CONC 32.7 g/dl (32.0-36.5); MEAN CORPUSCULAR VOLUME 96.3 fl (80.0-96.0); PLATELET COUNT, AUTOMATED 210 10^3/uL (150-450); RED BLOOD COUNT 4.07 10^6/uL (4.30-6.10); WHITE BLOOD COUNT 9.1 10^3/uL (4.0-10.0)
[2021-03-10 06:33] LABS: BLOOD UREA NITROGEN 18 MG/DL (7-18); CALCIUM LEVEL 9.1 MG/DL (8.8-10.2); CARBON DIOXIDE LEVEL 26 MEQ/L (21-32); CHLORIDE LEVEL 108 MEQ/L (98-107); GLOMERULAR FILTRATION RATE > 60.0 (>42); GLUCOSE, FASTING 105 MG/DL (70-100); MAGNESIUM LEVEL 2.2 MG/DL (1.8-2.4); POTASSIUM SERUM 4.2 MEQ/L (3.5-5.1); SODIUM LEVEL 140 MEQ/L (136-145)
[2021-03-10] MEDS: SENOKOT S TAB PO SCH (08:56)
[2021-03-10] MEDS: ASPIRIN 81MG ENTERIC TABLET PO SCH ×2 (08:56→09:00)
[2021-03-10] MEDS: SINEMET 25-100 MG TAB PO SCH (08:57)
[2021-03-10] MEDS: TAMSULOSIN 0.4 MG CAP PO SCH ×2 (08:57→09:00)
[2021-03-10] MEDS: LOSARTAN 25 MG TAB PO SCH ×2 (08:58→09:00)
[2021-03-10] MEDS: CLOPIDOGREL 75 MG TAB PO SCH (08:58)
[2021-03-10] MEDS: PANTOPRAZOLE 40MG TAB (PROTONIX) PO SCH ×2 (08:58→09:00)
[2021-03-10] MEDS: HEPARIN SOD (PORCINE) 5000UNITS/ML 1ML VIAL/SYRINGE SQ SCH (08:59)
[2021-03-10 09:00] VITALS: BP 116/79
[2021-03-10] MEDS: FINASTERIDE 5 MG TAB PO SCH (09:00)
[2021-03-10] MEDS: METAMUCIL (PSYLLIUM) PACKET PO SCH (09:00)
--- NOTE | 2021-03-10 13:40 | DS.PDOC ---
Discharge Summary General Date of Admission Mar 06, 2021 at 16:25 Date of Discharge 03/10/2021 Primary Care Physician: Wilfred Noel M.D. Attending Physician: SARAHY WINN DO Discharge Summary PROCEDURES PERFORMED DURING STAY: None. ADMITTING DIAGNOSES: 1. TIA/CVA. 2. Community-acquired pneumonia 3. Hypertension 4. Hyperlipidemia 5. Parkinson's disease 6. Anxiety/depression 7. BPH 8. Constipation DISCHARGE DIAGNOSES: 1. CVA. 2. Oropharyngeal dysphagia 3. Hypertension 4. Hyperlipidemia 5. Parkinson's disease 6. Anxiety/depression 7. BPH 8. Constipation COMPLICATIONS/CHIEF COMPLAINT: Cerebrovascular Accident (Cva). HISTORY OF PRESENT ILLNESS: Patient is a 80-year-old male with a history of Parkinson's disease who presented to the emergency department via EMS after he began to have issues with his balance. Patient states around 930 this morning, he got out of bed and was having difficulty with his balance. Patient stated that he fell but caught himself before going all the way to the ground. Patient states that he has been feeling weird since about 5:30 in the morning but did not know what was causing it. Patient states that he was also dealing with some slurred speech. About 1:30 PM, he decided to call EMS who brought him into the emergency department. In the emergency department, patient was experiencing some slurred speech and some facial droop which is since resolved. Patient states that he will occasionally get episodes will have issues speaking due to his Parkinson's disease. Patient does not know if he has a history of strokes in the past. Patient states that he is constipated and keeps close track of his bowels because he had issues with bowel obstructions in the past. Patient is otherwise feeling well today. HOSPITAL COURSE: Patient's MRI did show the patient did have a stroke. Patient was continued on aspirin and Plavix. Repeat CT of the head 48 hours later did not show any progression of stroke or any bleeding. Patient did have some worsening of left-sided weakness and dysphagia throughout his hospitalization. Patient was made n.p.o several medications due to the worsening dysphagia until the patient can be seen by speech therapy for swallow evaluation. Because the patient did show some issues with aspiration, a modified barium swallow was performed on 03/09/2021 and did show the patient is aspirating requiring the patient to have a level 1 diet with pured diet. Patient continued to have increased left-sided weakness while working with physical therapy. Patient did meet criteria for acute rehab unit placement. Patient was doing well from medical standpoint but would need further physical and occupational therapy. The decision was made to discharge the patient from the acute medical floor to the acute rehab unit on 03/10/2021. DISCHARGE MEDICATIONS: Please see below. ALLERGIES: Please see below. PHYSICAL EXAMINATION ON DISCHARGE: VITAL SIGNS: Please see below. General: Alert and oriented male patient who was sitting up in the bedside chair eating breakfast when I walked in. Patient did not appear to be in any acute distress. HEENT: Normocephalic, atraumatic, moist mucous membranes. Neck: No lymphadenopathy or thyromegaly Cardiac: Regular rate and rhythm, no murmurs, normal S1, normal S2 Pulm: Clear to auscultation bilaterally. No wheezes, rhonchi, rales Abd: Nondistended, nontender to palpation, normal bowel sounds Ext: No edema bilateral lower extremities Neuro: Patient had 5/5 strength in the right upper and lower extremity. Patient had 3/5 strength in the left upper extremity and 4/5 strength in the left lower extremity. Patient did have some left-sided facial droop and some garbled speech. Otherwise, cranial nerves intact bilaterally LABORATORY DATA: Please see below. IMAGING: CT of the head performed without contrast on 03/06/2021 was reported to show diffuse atrophy, vascular calcification, small vessel changes. 2 old appea ring lacunar infarcts in the left basal ganglia. No acute intracranial abnormality seen. Chest x-ray performed on 03/06/2021 was reported to show new right lung airspace opacities described as new patchy opacities seen in the right middle lower lung zones. Pneumonia cannot be ruled out. CT angiogram of the head performed with contrast on 03/06/2021 is reported to show high-grade stenosis of the distal right vertebral artery due to calcific plaquing unchanged. Diffuse narrowing of the basilar artery unchanged with slight arthrosclerotic irregularity. No other high-grade stenosis or occlusion seen. CT angiogram of the neck performed with IV contrast was reported to show 03/06/2021 was reported to show 30% narrowing of the proximal internal carotid artery on the left due to calcific and noncalcific plaquing. Approximately 60% narrowing in the proximal internal carotid artery origin on the right due to calcific plaquing. Findings are unchanged. Left dominant vertebrals distal vertebral artery calcification and narrowing on the right. No significant change from the September 07, 2020 study. MRI of the brain performed on 03/06/2021 was reported to show recent acute to subacute right external capsule/pillai radiata lacunar infarcts. CT scan of the head performed without contrast on 03/07/2021 was reported to show cerebral atrophy without evidence of intracranial pathology. Chronic lacunar infarcts in both basal ganglia. Calcific vascular disease in the intracranial portions of both internal carotid arteries and both vertebral arteries. Mild chronic ethmoidal, frontal, and sphenoid sinusitis. Modified barium cookie swallow performed on 03/09/2021 was reported to show aspir ation was visualized with nectar thick in consistency, flash penetration was visualized with both honey and mixed with honey thick base consistency. PROGNOSIS: Fair ACTIVITY: As tolerated. DIET: Pured DISCHARGE PLAN: Discharge to acute rehab unit DISPOSITION: . DISCHARGE INSTRUCTIONS: 1. Follow-up with Dr. Riggs in the acute rehab unit staff. ITEMS TO FOLLOWUP ON ON OUTPATIENT: 1. Continue physical therapy. DISCHARGE CONDITION: Stable. TIME SPENT ON DISCHARGE: 35 minutes. Vital Signs/I&Os Vital Signs Date Time Temp Pulse Resp B/P (MAP) Pulse Ox O2 Delivery O2 Flow Rate FiO2 03/10/21 09:00 116/79 03/10/21 06:00 99.3 81 20 95 Room Air I&O- Last 24 Hours up to 6 AM 03/10/21 06:00 Intake Total 1100 ml Output Total 1295 ml Balance -195 ml Laboratory Data Labs 24H Laboratory Tests 2 03/10/21 05:34: Nucleated Red Blood Cells % (auto) 0.0, Anion Gap 6L, Glomerular Filtration Rate > 60.0, Calcium Level 9.1, Magnesium Level 2.2 CBC/BMP Laboratory Tests 03/10/21 05:34 Microbiology Microbiology 03/07/21 Blood Culture - Preliminary, Resulted No Growth after 48 hours. All Specime... 03/07/21 Blood Culture - Preliminary, Resulted No Growth after 48 hours. All Specime... 03/06/21 Blood Culture - Preliminary, Resulted No Growth after 72 hours. All specime... 03/06/21 Blood Culture - Final, Complete Staphylococcus Epidermidis Discharge Medications Scheduled Alfuzosin HCl (Alfuzosin HCl ER) 10 Mg Tab, 10 MG PO QHS, (Reported) Amitriptyline HCl (Amitriptyline HCl) 50 Mg Tab, 50 MG PO QHS, (Reported) Amlodipine Besylate (Amlodipine Besylate) 10 Mg Tablet, 10 MG PO QHS, (Reported) Aspirin (Aspirin EC) 81 Mg Tablet.dr, 81 MG PO DAILY, (Reported) Carbidopa/Levodopa (Carbidopa-Levodopa 25-100 Tab) 1 Each Tablet, 2 TAB PO BID, (Reported) Clopidogrel Bisulfate (Clopidogrel) 75 Mg Tablet, 75 MG PO DAILY, (Reported) Ezetimibe (Ezetimibe) 10 Mg Tablet, 10 MG PO QHS, (Reported) Finasteride (Finasteride) 5 Mg Tab, 5 MG PO DAILY, (Reported) Losartan Potassium (Losartan Potassium) 25 Mg Tablet, 25 MG PO DAILY, (Reported) Pantoprazole Sodium (Pantoprazole Sodium) 40 Mg Tablet.dr, 40 MG PO DAILY, (Reported) Rosuvastatin Calcium (Rosuvastatin Calcium) 40 Mg Tablet, 40 MG PO QHS, (Reported) Sennosides/Docusate Sodium (Senexon-S 50-8.6 mg Tablet) 1 Each Tablet, 2 TAB PO BID, (Reported) Scheduled PRN Acetaminophen (Acetaminophen) 500 Mg Tablet, 1,000 MG PO TID PRN for PAIN LEVEL 1-4, (Reported) Polyethylene Glycol 3350 (Miralax) 1 Pow Pow, 17 GM PO DAILY PRN for CONSTIPATION, (Reported) Allergies Coded Allergies: No Known Allergies (Unverified , 09/29/18) SARAHY WINN DO Mar 10, 2021 13:40
[2021-03-10 14:06] VITALS: BP 116/60
== END 2021-03-10 16:57 | DRG 66 ==
LOC: M ED 13:12 → M ED INP 16:25 → ENRESERV 16:48 → M MSPAV 19:55
PROVIDERS: ADMIT Family Medicine; ATTEND Family Medicine
DX: I63.231 Cerebral infarction due to unspecified occlusion or stenosis of right carotid arteries (principal); R13.12 Dysphagia, oropharyngeal phase; K59.00 Constipation, unspecified; N40.0 Benign prostatic hyperplasia without lower urinary tract symptoms; F41.9 Anxiety disorder, unspecified; F32.9 Major depressive disorder, single episode, unspecified; G20 Parkinson's disease; I10 Essential (primary) hypertension; Z79.82 Long term (current) use of aspirin; Z79.899 Other long term (current) drug therapy; M10.9 Gout, unspecified; M51.36 Other intervertebral disc degeneration, lumbar region; K70.0 Alcoholic fatty liver; F17.210 Nicotine dependence, cigarettes, uncomplicated; Z66 Do not resuscitate

== ENCOUNTER 2021-03-10 15:28 | Inpatient (IN) | payer MEDICARE, BC, OTHER ==
[~2021-03-10] VITALS: Ht 172.7 cm; Wt 63.5 kg
[~2021-03-10 15:28] MED LIST changes: +ASPI81TA26 PO; +EZET10TA21 PO; +LOSA25TA14 PO; +PANT40TA29 PO; +ROSU40TA4 PO
[2021-03-10] MEDS: REMEDY PHYTOPLEX Z-GUARD PASTE 113GM TUBE (FROM STOREROOM PRODUCT) TOP SCH ×2 (15:30→20:34)
[2021-03-10 17:10] VITALS: BP 147/71
[2021-03-10] MEDS: MAGIC MOUTHWASH SUSPENSION BTL MT SCH (17:30)
[2021-03-10 20:00] VITALS: BP 140/82
[2021-03-10] MEDS: HEPARIN SOD (PORCINE) 5000UNITS/ML 1ML VIAL/SYRINGE SC SCH (20:32)
[2021-03-10] MEDS: AMITRIPTYLINE 50 MG TAB PO SCH (20:33)
[2021-03-10] MEDS: EZETIMIBE 10MG TABLET (ZETIA) PO SCH (20:33)
[2021-03-10] MEDS: SINEMET 25-100 MG TAB PO SCH (20:33)
[2021-03-10] MEDS: ROSUVASTATIN 10 MG TAB (CRESTOR) PO SCH (20:33)
[2021-03-10] MEDS: SENOKOT S TAB PO SCH (20:33)
[2021-03-11] MEDS: REMEDY PHYTOPLEX Z-GUARD PASTE 113GM TUBE (FROM STOREROOM PRODUCT) TOP SCH ×4 (02:50→19:53)
[2021-03-11 06:00] VITALS: BP 138/72
[2021-03-11 06:48] LABS: BASO % 0.5 % (0.0-1.0); EOS # 0.2 10^3/uL (0.0-0.5); EOS % 2.3 % (0.0-3.0); HEMATOCRIT 39.6 % (42.0-52.0); HEMOGLOBIN 12.8 g/dl (13.5-17.5); LYMPH % 11.4 % (24.0-44.0); MEAN CORPUSCULAR HEMOGLOBIN 31.6 pg (27.0-33.0); MEAN CORPUSCULAR HGB CONC 32.3 g/dl (32.0-36.5); MEAN CORPUSCULAR VOLUME 97.8 fl (80.0-96.0); MONO # 1.1 10^3/uL (0.0-0.8); MONO % 12.5 % (2.0-8.0); NEUTROPHILS # 6.2 10^3/uL (1.5-8.5); NEUTROPHILS % 72.8 % (36.0-66.0); PLATELET COUNT, AUTOMATED 188 10^3/uL (150-450); RED BLOOD COUNT 4.05 10^6/uL (4.30-6.10); WHITE BLOOD COUNT 8.4 10^3/uL (4.0-10.0)
[2021-03-11 07:16] LABS: ALBUMIN 3.1 GM/DL (3.2-5.2); ALT/SGPT 17 U/L (12-78); BILIRUBIN,TOTAL 0.6 MG/DL (0.2-1.0); BLOOD UREA NITROGEN 22 MG/DL (7-18); CALCIUM LEVEL 9.2 MG/DL (8.8-10.2); CARBON DIOXIDE LEVEL 26 MEQ/L (21-32); CHLORIDE LEVEL 107 MEQ/L (98-107); CREATININE FOR GFR 1.13 MG/DL (0.70-1.30); GLOMERULAR FILTRATION RATE > 60.0 (>42); GLUCOSE, FASTING 84 MG/DL (70-100); POTASSIUM SERUM 4.3 MEQ/L (3.5-5.1); SODIUM LEVEL 142 MEQ/L (136-145); TOTAL PROTEIN 7.2 GM/DL (6.4-8.2)
--- NOTE | 2021-03-11 08:59 | HPEPDOC ---
Bio[employer] Note DATE OF ADMISSION: 03-10-21 DATE OF SERVICE: 03-11-21 TIME OF ADMISSION: Please refer to physician's admission order. SOURCE OF ADMISSION INFORMATION: [facility] record and patient CHIEF COMPLAINT: stroke HISTORY OF PRESENT ILLNESS: 80M pmh Parkinsons, chronic diastolic CHF, HTN, nicotine and ETOH abuse, IgM MGUS, hx of TIA and CVA on Asa and Plavix, left sided cervical radiculopathy, pseudogout, alcoholic fatty liver presented to [facility] ED on 03-06-21 with slurred speech and balance impairment with initial CTH showing old appearing lacunar infarcts in the left basal ganglia. No acute intracranial abnormality seen". CTA head showed high grade stenosis of the distal right vertebral artery. Patient later developed a facial drop and left upper extremity weakness with MRI showing, acute to subacute right external capsule/pillai radiata lacunar infarcts. He was continued on Asa and Plavix in addition to statin therapy, evaluated by speech therapy and placed on a puree and honey thickened liquid diet. He was treated for a possible PNA for a short period of time then taken off antibiotics as his procalcitonin was negative and he did not have cough. He had new deficits in mobility and ADLs and deemed medically appropriate for discharge to ARU. On day of eval patient was noted to choke on honey thickened liquids and stat CTH and MRI brain was ordered to rule out new stroke. REVIEW OF SYSTEMS: The following is a completed review of systems and has been reviewed. Review of systems otherwise unremarkable. PAIN: Patient self reports no pain EYES: No recent vision changes EARS, NOSE, & THROAT: + dysphagia, +BIG LAGOON CARDIOVASCULAR: Denies chest pain or palpitations PULMONARY: Denies shortness of breath GASTROINTESTINAL: Denies constipation/diarrhea GENITOURINARY: denies dysuria MUSCULOSKELETAL: left sided paresis NEUROLOGICAL:+ left sided paresis and parkinsons HEMATOLOGICAL: denies easy bruising SKIN:+ facial rash PSYCHIATRIC: Unremarkable All other review of systems found to be negative. PAST MEDICAL HISTORY: as per HPI PAST SURGICAL HISTORY: Multiple colonoscopies, lumbar decompression surgery and fusion, abscess with small bowel resection lysis of adhesions, TURP ALLERGIES: Please see below. MEDICATIONS: Please see below. FAMILY HISTORY: Emphysema and Alzheimer SOCIAL HISTORY: Daily smoker, former ETOH use, no illicit drugs use DIET: puree and honey thickened PHYSICAL EXAMINATION: VITAL SIGNS: Please see below. GENERAL: Pleasant and cooperative. No acute distress. HEENT: PERRL. Extraocular movements intact. Clear conjunctiva, +left facial droop CARDIOVASCULAR: Regular rate and rhythm. No murmurs, rubs, or gallops LUNGS: Clear to auscultation bilaterally. No wheezes. No rhonchi ABDOMEN: Soft, nontender, nondistended. Positive bowel sounds. Normal active bowel sounds NEUROLOGICAL: Alert and oriented times three. Cranial nerves II through XII grossly intact. Sensation grossly intact EXTREMITIES: 5/5 RUE, 3+/5 LUE 5\\5 strength right lower extremity. 5-/5 strength in left lower extremity. SKIN: + silver plaque lesions on face LABORATORY DATA: Please see below. IMAGING:Imaging documentation personally reviewed by record FUNCTIONAL STATUS: Premorbid: Independent with all activities of daily life as well as mobility On Admission: Mod-assist for bed mobility, functional transfers, ambulation, dressing, toileting GOALS: Supervision for bed mobility, functional transfers, ambulation, dressing, toileting, bathing ASSESSMENT:80-year-old M with past medical history of HTN, parkinsons, TIA and CVA who presents status post right external capsule/pillai radiata lacunar stroke PLAN: 1. Rehab- PT/OT advance mobility and ADLs, strengthen/stretch/maintain ROM all 4limbs -PAPER SUPERVISOR- dysphagia due to stroke and possibly parkinsons- initially admitted on puree and nectar (downgraded today to pudding thickened) 2. Neuro- hx of TIA and CVA with new right external capsule/pillai radiata lacunar infarct with CTA showing severe right vertebral artery stenosis cont ASA, plavix and statin -repeat CTH showing no new hemorrhage, MRI brain showing new right basal ganglia ischemic infarct- discussed with Dr. Bell who will see patient later today, permissive BPs for now, cont therapy -patient reassessed by PAPER SUPERVISOR and safe for pudding thickened liquids- will give g entle hydration overnight given poor po intake -hx of parkinsons cont sinemet 3. Cardiac- hx of HTn- BP meds on hold for permissive HTN -HLD cont statin, zetia -chronic diastolic CHF, poor po intake at this time, will monitor for fluid overload 4. Resp- aspiration precautions, oral care, monitor for infection -CT chest ordered to r/o infiltrate 5. - cont proscar and flomax for BPH, monitor PVRs 6. Pain- tylenol prn 7. DVT ppx- heparin 8. GI ppx- protonix 9. Skin- turn q2, zinc oxide to sacrum 10. Psych- cont elavil 11. Dispo- tbd POST ADMISSION PHYSICIAN EVALUATION: Medical and functional status: Description of medical status, medical assessment: As above. Rehabilitation diagnosis and current and prior cold morbid medical conditions as above. Risk of complications and plans to mitigate them as above. Description of functional status current status is as above. Prior status as above. Status compared to preadmission: There are no clinically significant differences between the patient's current status and the information described on the preadmission screening document. Treatment plan anticipated: Treatment plan is as described above. Required disciplines including physical therapy, occupational therapy, others as noted above. Intensity of services: 3 hours a day, 6 days a week. Special considerations: There are no specific special or safety considerations that would likely preclude immediate implementation of an intensive rehabilitation program or subsequently influence the plan of care. ATTESTATION: Considering all the information above, it is my best judgment that this patient requires intensive rehabilitation therapy as described above and an inpatient hospital environment due to the complexity of nursing, medical, and rehabilitation needs required by the patient. Furthermore, this patient can reasonably be expected to participate in an benefit from an inpatient rehabilitation stay with an interdisciplinary team approach to the delivery of rehabilitation care under the direction and supervision of rehabilitation physician. PROGNOSIS: fair ESTIMATED LENGTH OF STAY:21-28 days. PROJECTED DISCHARGE DESTINATION: Home with family support and any durable medical equipment required to increase functional safety and mobility. TIME SPENT COUNSELING AND COORDINATING INITIAL CARE: Greater than 70 minutes. Vital Signs Vital Sign - Last 24 Hours 03/10/21 03/10/21 03/10/21 03/11/21 17:10 20:00 20:34 06:00 Temp 99.9 99.2 98.3 Pulse 60 72 72 82 Resp 18 18 17 B/P (MAP) 147/71 (96) 140/82 (101) 140/82 138/72 (94) Pulse Ox 94 92 94 O2 Delivery Room Air Room Air Room Air Laboratory Data CBC/BMP Laboratory Tests 03/11/21 06:16 Labs 24H Laboratory Tests 2 03/11/21 06:16: Immature Granulocyte % (Auto) 0.5, Neutrophils (%) (Auto) 72.8H, Lymphocytes (%) (Auto) 11.4L, Monocytes (%) (Auto) 12.5H, Eosinophils (%) (Auto) 2.3, Basophils (%) (Auto) 0.5, Neutrophils # (Auto) 6.2, Lymphocytes # (Auto) 1.0L, Monocytes # (Auto) 1.1H, Eosinophils # (Auto) 0.2, Basophils # (Auto) 0.0, Nucleated Red Blood Cells % (auto) 0.0, Anion Gap 9, Glomerular Filtration Rate > 60.0, Calcium Level 9.2, Total Bilirubin 0.6, Aspartate Amino Transf (AST/SGOT) 25, Alanine Aminotransferase (ALT/SGPT) 17, Alkaline Phosphatase 73, Total Protein 7.2, Albumin 3.1L, Albumin/Globulin Ratio 0.8 Home Medications Scheduled Alfuzosin HCl (Alfuzosin HCl ER) 10 Mg Tab, 10 MG PO QHS, (Reported) Amitriptyline HCl (Amitriptyline HCl) 50 Mg Tab, 50 MG PO QHS, (Reported) Amlodipine Besylate (Amlodipine Besylate) 10 Mg Tablet, 10 MG PO QHS, (Reported) Aspirin (Aspirin EC) 81 Mg Tablet.dr, 81 MG PO DAILY, (Reported) Carbidopa/Levodopa (Carbidopa-Levodopa 25-100 Tab) 1 Each Tablet, 2 TAB PO BID, (Reported) Clopidogrel Bisulfate (Clopidogrel) 75 Mg Tablet, 75 MG PO DAILY, (Reported) Ezetimibe (Ezetimibe) 10 Mg Tablet, 10 MG PO QHS, (Reported) Finasteride (Finasteride) 5 Mg Tab, 5 MG PO DAILY, (Reported) Losartan Potassium (Losartan Potassium) 25 Mg Tablet, 25 MG PO DAILY, (Reported) Pantoprazole Sodium (Pantoprazole Sodium) 40 Mg Tablet.dr, 40 MG PO DAILY, (Reported) Rosuvastatin Calcium (Rosuvastatin Calcium) 40 Mg Tablet, 40 MG PO QHS, (Reported) Sennosides/Docusate Sodium (Senexon-S 50-8.6 mg Tablet) 1 Each Tablet, 2 TAB PO BID, (Reported) Scheduled PRN Acetaminophen (Acetaminophen) 500 Mg Tablet, 1,000 MG PO TID PRN for PAIN LEVEL 1-4, (Reported) Polyethylene Glycol 3350 (Miralax) 1 Pow Pow, 17 GM PO DAILY PRN for CONSTIPATION, (Reported) Allergies Coded Allergies: No Known Allergies (Unverified , 09/29/18) A-FIB/CHADSVASC A-FIB History Current/History of A-Fib/PAF?: No Current PO Anticoag Therapy: No JOAQUIN SARABIA MD Mar 11, 2021 08:59
[2021-03-11] MEDS ORDERED: LOSARTAN 25 MG TAB PO SCH (09:00)
[2021-03-11] MEDS: SENOKOT S TAB PO SCH ×2 (09:03→20:35)
[2021-03-11] MEDS: CLOPIDOGREL 75 MG TAB PO SCH (09:03)
[2021-03-11] MEDS: ASPIRIN 81MG ENTERIC TABLET PO SCH (09:03)
[2021-03-11] MEDS: SINEMET 25-100 MG TAB PO SCH ×2 (09:03→19:51)
[2021-03-11] MEDS: PANTOPRAZOLE 40MG TAB (PROTONIX) PO SCH (09:03)
[2021-03-11] MEDS: HEPARIN SOD (PORCINE) 5000UNITS/ML 1ML VIAL/SYRINGE SC SCH ×3 (09:03→21:00)
[2021-03-11] MEDS: FINASTERIDE 5 MG TAB PO SCH (09:03)
[2021-03-11] MEDS: TAMSULOSIN 0.4 MG CAP PO SCH (09:04)
[2021-03-11] MEDS: MAGIC MOUTHWASH SUSPENSION BTL MT SCH ×3 (09:04→17:28)
--- NOTE | 2021-03-11 12:56 | REP ---
INDICATION: worsening dysphagia- r/o bleed. COMPARISON: Comparison CT study March 07, 2021. TECHNIQUE: Helical scanning is acquired. 5 mm axial images were reformatted. Coronal MPR images were generated. FINDINGS: Bone window settings demonstrate an intact bony calvarium. There is no evidence of skull fracture or incidental bony calvarial lesion. The visualized paranasal sinuses appear clear. No intraorbital abnormality is seen. On soft tissue window setting images; the lateral, third, and fourth ventricles are normal in size and position. Trinh-white differentiation pattern is normal above and below the tentorium. There are is no evidence of intracranial hemorrhage. No mass, edema, infarction, or midline shift is seen. No extra-axial fluid collection is appreciated. Vascular calcification is again noted in the distal internal carotid arteries and distal vertebral arteries bilaterally. There is patchy opacification of the ethmoid and sphenoid sinus air cells. Generalized volume loss is again noted. There is an old lacunar infarct in the right basal ganglia which is unchanged. However, above this there is developing encephalomalacia in the basal ganglia and periventricular white matter consistent with a acute to subacute infarct. This is a new finding compared to the March 07, 2021 study. The area of low density measures up to 2 cm in greatest diameter. There is no evidence of intracranial hemorrhage. No other infarction is seen. No extra-axial fluid collection mass or midline shift.. IMPRESSION: There is a change in the CT study. There is a 2 cm acute to subacute infarct in the right basal ganglia extending to the periventricular white matter of the frontal lobe on the right. Vascular calcification and diffuse atrophy are again noted with small-vessel changes as before. There is also an old right basilar lacunar infarct. <Electronically signed by Ismael Martinez > 03/11/21 [id number]
--- NOTE | 2021-03-11 13:19 | REPVR ---
PROCEDURE INFORMATION: Exam: MR Head Without Contrast Exam date and time: 03/11/2021 1:12 PM Age: 80 years old Clinical indication: Other: Worsening dysphagia R/O new stroke TECHNIQUE: Imaging protocol: MR of the head without contrast. COMPARISON: CT Head without contrast 03/11/2021 12:35 PM FINDINGS: Brain: Examination reveals an approximately 3 x 2 cm area of restricted diffusion in the right putamen extending into the posterior limb of the right internal capsule and right centrum semi ovale consistent with acute infarction in the right MCA distribution. No acute hemorrhage, mass or midline shift is seen. There is mild patchy increased T2 signal intensity within the bilateral cerebral periventricular white matter, consistent with chronic microvascular ischemic changes. There are few small focal areas of chronic ischemia in bilateral frontal, parietal and periatrial white matter. Chronic ischemic changes/lacunar infarctions are seen in bilateral basal ganglia. There is mild diffuse cerebral atrophy present, consistent with this patient's age. Cerebral ventricles: The ventricular system demonstrates mild diffuse compensatory enlargement. Bones/joints: Unremarkable. Paranasal sinuses: Mild mucosal thickening is seen in the paranasal sinuses. Mastoid air cells: Normal as visualized. No mastoid effusion. Orbital cavity: Unremarkable. Soft tissues: Unremarkable. IMPRESSION: Examination reveals an approximately 3 x 2 cm area of restricted diffusion in the right putamen extending into the posterior limb of the right internal capsule and right centrum semi ovale consistent with acute infarction in the right MCA distribution. No acute hemorrhage, mass or midline shift is seen. Electronically signed by: Austin Gomez On 03/11/2021 13:18:52 PM
[2021-03-11 14:00] VITALS: BP 135/75
--- NOTE | 2021-03-11 15:00 | REP ---
INDICATION: r/o infiltrate, concern for aspiration PNA. COMPARISON: Comparison CT study of the chest April 04, 2020. TECHNIQUE: Helical scanning is acquired. 3 mm axial images are generated. Coronal and sagittal MPR and coronal MIP images are generated. FINDINGS: Digital preliminary lead bi developer radiograph demonstrates Fu fusion rods in the lower thoracic and upper lumbar spine. There is calcific and noncalcific pleural plaquing visible bilaterally. There are areas of predominantly peripheral but coarse parenchymal fibrosis in both upper and lower lung faria. There is some parenchymal calcification associated with an area of rounded atelectasis in the left lower lobe posteriorly. These findings are unchanged from the comparison CT study of April 04, 2020. No pleural effusion is seen. No new infiltrate is appreciated. Vascular calcifications noted. No endotracheal abnormality is observed. No acute bony abnormality. IMPRESSION: No new infiltrate. Chronic pleuroparenchymal fibrotic changes and calcific pleural plaquing again noted. Metallic fixation rods in the thoracolumbar spine. Some vascular calcification is noted. <Electronically signed by Ismael Martinez > 03/11/21 [id number]
[2021-03-11] MEDS: D5W 1,000 ML IV SCH (15:14)
--- NOTE | 2021-03-11 16:26 | IPNPDOC ---
Text Note Date of Service The patient was seen on 03/11/21. NOTE Subjective: Patient is a 80-year-old male who initially presented to the hosp ital on March 06, 2021 with possible strokelike symptoms. Patient was found to have a stroke now is exhibiting left upper extremity weakness with trouble swallowing. Patient was discharged from the hospital yesterday, March 10, 2021 and was admitted into the acute rehab unit for further physical therapy. Patient does not have any complaints today. Review of systems: General: Patient denies fevers HEENT: Patient denies headaches Cardiovascular: Patient denies chest pain Respiratory: Patient denies shortness of breath, cough GI: Patient denies abdominal pain, nausea, vomiting, diarrhea : Patient denies increased frequency or pain with urination Extremities: Patient denies swelling or pain in extremities Neurological: Patient reports weakness in left upper extremity Physical exam: Vitals: See below General: Alert and oriented male patient who was sitting up in a wheelchair next to his bed when I walked in. Patient did not appear to be in any acute distress. HEENT: Normocephalic, atraumatic, moist mucous membranes. Neck: No lymphadenopathy or thyromegaly Cardiac: Regular rate and rhythm, no murmurs, normal S1, normal S2 Pulm: Clear to auscultation bilaterally. No wheezes, rhonchi, rales Abd: Nondistended, nontender to palpation, normal bowel sounds Ext: No edema bilateral lower extremities Neuro: 5/5 strength in the right upper extremity and right lower extremity. Patient has 3/5 strength in the left upper extremity and 4+/5 in left lower extremity patient reports equal sensation to light touch. Patient does have left-sided facial droop especially of the lip. Labs: See below Imaging: MRI of the brain performed without contrast on March 11, 2021 was reported to show examination reveals approximately 3 x 2 cm area of restricted diffusion in the right putamen extending into the posterior limb of the right internal capsule and right centrum semiovale consistent with acute infarction of the right MCA distribution. No acute hemorrhage, mass or midline shift is seen. CT the head performed without contrast on March 11, 2021 was reported to show there is a change in the CT study. There is a 2 cm acute to subacute infarct in the right basal ganglia extending in the periventricular white matter of the frontal lobe on the right. Vascular calcification and diffuse atrophy are again noted with small vessel changes as before. There is also an old right basilar lacunar infarct. CT the chest performed without contrast on March 11, 2021 was reported to show no new infiltrate. Chronic pleural-parenchymal fibrotic changes and calcific pleural plaquing is noted. Metallic fixation rods in thoracic or lumbar spine. Some vascular calcification is noted. Assessment/plan: 80-year-old male who was found to have acute CVA who was admitted into the acute rehab unit for further therapy. 1. CVA. Patient was shown to have CVA on MRI. Patient will continue with aspirin and Plavix as well as therapy per ARU. 2. Oropharyngeal dysphagia. Continue mechanical soft diet and continue to work with speech therapy. 3. Hypertension. Under control at this time. Continue home medications. 4. Hyperlipidemia. Continue home medications. 5. Parkinson's disease. Continue patient's home medications 6. BPH. Continue patient's home medications and if the patient begins to retain urine, Amos catheter can be placed. 7. Constipation. Continue stool softeners. DVT Prophylaxis: Heparin Disposition: Discharge per Dr. Riggs and the ARU staff Eduard AGUILAR, I+O Eduard AGUILAR I+O Laboratory Tests 03/11/21 06:16 Vital Signs Date Time Temp Pulse Resp B/P (MAP) Pulse Ox O2 Delivery O2 Flow Rate FiO2 03/11/21 14:00 98.6 75 18 135/75 (95) 98 Room Air I&O- Last 24 Hours up to 6 AM 03/11/21 06:00 Intake Total 80 ml Output Total 1250 ml Balance -1170 ml SARAHY WINN DO Mar 11, 2021 16:26
[2021-03-11] MEDS: AMITRIPTYLINE 50 MG TAB PO SCH (19:51)
[2021-03-11] MEDS: EZETIMIBE 10MG TABLET (ZETIA) PO SCH (19:51)
[2021-03-11] MEDS: ACETAMINOPHEN TAB 650MG DOSE (2X325MG) PO PRN (19:52)
[2021-03-11] MEDS: ROSUVASTATIN 10 MG TAB (CRESTOR) PO SCH (19:52)
[2021-03-11 20:00] VITALS: BP 133/91
[2021-03-12] MEDS: D5W 1,000 ML IV SCH (04:36)
[2021-03-12] MEDS: REMEDY PHYTOPLEX Z-GUARD PASTE 113GM TUBE (FROM STOREROOM PRODUCT) TOP SCH ×4 (04:36→20:10)
[2021-03-12 06:00] VITALS: BP 162/84
[2021-03-12] MEDS: MAGIC MOUTHWASH SUSPENSION BTL MT SCH ×3 (09:31→17:47)
[2021-03-12] MEDS: TAMSULOSIN 0.4 MG CAP PO SCH (09:32)
[2021-03-12] MEDS: SENOKOT S TAB PO SCH ×2 (09:32→20:09)
[2021-03-12] MEDS: SINEMET 25-100 MG TAB PO SCH ×2 (09:32→20:09)
[2021-03-12] MEDS: CLOPIDOGREL 75 MG TAB PO SCH (09:32)
[2021-03-12] MEDS: ASPIRIN 81MG ENTERIC TABLET PO SCH (09:32)
[2021-03-12] MEDS: HEPARIN SOD (PORCINE) 5000UNITS/ML 1ML VIAL/SYRINGE SC SCH ×2 (09:32→20:12)
[2021-03-12] MEDS: FINASTERIDE 5 MG TAB PO SCH (09:32)
[2021-03-12] MEDS: PANTOPRAZOLE 40MG TAB (PROTONIX) PO SCH (09:32)
--- NOTE | 2021-03-12 10:02 | CR ---
CONSULTATION DATE: 03/11/2021 REFERRING PHYSICIAN: Cordelia Manley MD REASON FOR CONSULTATION: Stroke. HISTORY OF PRESENT ILLNESS: Romulo Banda is a 80-year-old man with a history of Parkinson's disease who was admitted at [facility] on March 06, 2021 when he started having issues with his balance. He got up that morning around 9:30 a.m. and had difficulty with his balance. He was noted to have left-sided weakness and slurred speech and difficulty swallowing. He was found to have right-sided pillai radiata/centrum semiovale ischemic stroke causing left hemiparesis. CTA of head and neck showed 60% right internal carotid artery stenosis, moderate right vertebral artery stenosis and mild stenosis of left internal carotid artery. His scans were reviewed. He was transferred to rehabilitation unit. He was noted to have slightly more swallowing difficulty today. MRI scan of the brain was repeated which showed extension and enlargement of same ischemic stroke. This stroke is now apparent on CT scan of head compared to his first CT scan of head which was unremarkable. The patient himself does not feel that his left side weakness is worse. He has slurred speech. He denies any headache, neck pain, back pain or diplopia, urinary incontinence or seizures. PAST MEDICAL HISTORY: 1. Hypertension. 2. Grade 1 diastolic heart dysfunction. 3. History of tobacco and alcohol abuse. 4. Anemia. 5. Lumbosacral degenerative disc disease. 6. Prostate enlargement. 7. Depression/anxiety. 8. Glucose intolerance. 9. Fatty liver disease. 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 11. Pseudogout. 12. Parkinsonism. 13. History of TIA. 14. Back surgery. 15. Prostate surgery. 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 SOCIAL HISTORY: He smokes 4-5 cigarettes a day. Patient quit drinking alcohol earlier this year. He lives at home alone. FAMILY HISTORY: Father had COPD. Mother had Alzheimer's dementia. REVIEW OF SYSTEMS: All systems are reviewed and found to be noncontributory except as mentioned in history of present illness. ALLERGIES: None HOME MEDICATIONS: 1. Tylenol 1000 mg p.o. t.i.d. p.r.n. 2. Alfuzosin 10 mg p.o. daily. 3. Amitriptyline 50 mg p.o. q.h.s. 4. Aspirin 81 mg p.o. daily. 5. Atorvastatin 40 mg p.o. daily. 6. Sinemet two tablets p.o. b.i.d. 7. Ciprofloxacin ointment as needed. 8. Plavix 75 mg p.o. daily. 9. Finasteride 5 mg p.o. daily. 10. Losartan 100 mg p.o. daily. 11. Rosuvastatin 20 mg p.o. daily which was increased to 40 mg daily. 12. Plavix 75 mg p.o. daily. 13. Amlodipine 10 mg p.o. daily. His antihypertensive medications are being held due to today's stroke extension. PHYSICAL EXAMINATION: VITAL SIGNS: Temperature 97.6, pulse 58, respiratory rate 18, blood pressure 135/61, respiratory rate 14. HEART: Regular rate and rhythm. LUNGS: Clear to auscultation. ABDOMEN: Soft, nontender, nondistended. EXTREMITIES: No pedal edema. MUSCULOSKELETAL: No abnormalities. SKIN: No rash. NEUROLOGICAL: No signs of meningeal irritation. The patient is awake, alert, oriented to place, person and time. He has dysarthric speech. His comprehension and expression are normal. He has left-sided upper motor neuron type facial weakness affecting left lower face. Left arm strength is 2+/5 and left leg strength is 4+/5. His left plantar is upgoing. He has slow fine finger movements. ASSESSMENT: 1. Right pillai radiata and centrum semiovale ischemic stroke with extension in size of stroke. 2. Right-sided 60% internal carotid artery and a mild left internal carotid artery and right vertebral artery stenosis. 3. Hypertension, dyslipidemia. PLAN: 1. Allow permissive hypertension and keep blood pressure below 180/100. 2. He is already on maximum medical therapy. Continue aspirin 81 mg p.o. daily and Plavix 75 mg p.o. daily with Crestor 40 mg p.o. daily. His fasting lipid profile was checked during his initial admission which showed elevated total cholesterol and LDL. 3. He should quit smoking. 4. Continue physical, occupational therapy and rehabilitation. 5. Continue his outpatient Sinemet for his Parkinsonism. 6. Follow up with neurology in 1-2 weeks after hospital discharge.
--- NOTE | 2021-03-12 10:33 | IPNPDOC ---
PM&R Progress Note DATE OF SERVICE: Mar 12, 2021 Shovel Mechanic Progress Note Subjective: Patient seen in his room reporting he feels ok, but has developed a non- productive cough. He denies fevers or chills. REVIEW OF SYSTEMS: The following is a completed review of systems and has been reviewed. Review of systems otherwise unremarkable. PAIN: Patient self reports no pain EYES: No recent vision changes EARS, NOSE, & THROAT: + dysphagia, +[place] CARDIOVASCULAR: Denies chest pain or palpitations PULMONARY: Denies shortness of breath GASTROINTESTINAL: Denies constipation/diarrhea GENITOURINARY: denies dysuria MUSCULOSKELETAL: left sided paresis NEUROLOGICAL:+ left sided paresis and parkinsons HEMATOLOGICAL: denies easy bruising SKIN:+ facial rash PSYCHIATRIC: Unremarkable All other review of systems found to be negative. PHYSICAL EXAMINATION: VITAL SIGNS: Please see below. GENERAL: Pleasant and cooperative. No acute distress. HEENT: PERRL. Extraocular movements intact. Clear conjunctiva, +left facial droop CARDIOVASCULAR: Regular rate and rhythm. No murmurs, rubs, or gallops LUNGS: Clear to auscultation bilaterally. No wheezes. No rhonchi ABDOMEN: Soft, nontender, nondistended. Positive bowel sounds. Normal active bowel sounds NEUROLOGICAL: Alert and oriented times three. Cranial nerves II through XII grossly intact. Sensation grossly intact, +dysarthria EXTREMITIES: 5/5 RUE, 3+/5 LUE 5\5 strength right lower extremity. 5-/5 strength in left lower extremity. SKIN: + silver plaque lesions on face LABORATORY DATA: Please see below. ASSESSMENT:80-year-old M with past medical history of HTN, parkinsons, TIA and CVA who presents status post right external capsule/pillai radiata lacunar stroke PLAN: 1. Rehab- PT/OT advance mobility and ADLs, strengthen/stretch/maintain ROM all 4limbs -DOOR CAPTAIN- dysphagia due to stroke and possibly parkinsons- initially admitted on puree and nectar (downgraded today to pudding thickened) 2. Neuro- hx of TIA and CVA with new right external capsule/pillai radiata lacunar infarct with CTA showing severe right vertebral artery stenosis cont ASA, plavix and statin -repeat CTH showing no new hemorrhage, MRI brain showing new right basal ganglia ischemic infarct- discussed with Dr. Bell who, recs appreciated, permissive BPs for now, cont therapy -patient reassessed by DOOR CAPTAIN and safe for pudding thickened liquids- will give gentle hydration overnight given poor po intake -hx of parkinsons cont sinemet 3. Cardiac- hx of HTn- BP meds on hold for permissive HTN -HLD cont statin, zetia -chronic diastolic CHF, poor po intake at this time, will monitor for fluid overload 4. Resp- aspiration precautions, oral care, monitor for infection -CT chest ordered to r/o infiltrate on 03-11-21 which was negative, given new stroke and worsening dysphagia with reported non-productive cough, will order CXR-no leukocytosis or fever -combivent and guaifenesin ordered 5. - cont proscar and flomax for BPH, monitor PVRs 6. Pain- tylenol prn 7. DVT ppx- heparin 8. GI ppx- protonix 9. Skin- turn q2, zinc oxide to sacrum 10. Psych- cont elavil 11. Derm- facial psoriasis will order steroid cream 12. Dispo- tbd Allergies Coded Allergies: No Known Allergies (Unverified , 09/29/18) Vital Signs Vital Signs Date Time Temp Pulse Resp B/P (MAP) Pulse Ox O2 Delivery O2 Flow Rate FiO2 03/12/21 06:32 53 03/12/21 06:00 99.4 16 162/84 (110) 96 Room Air Current Medications Current Medications Current Medications Medications (Trade) Dose Ordered Sig/Atiya Route PRN Reason Start Time Stop Time Status Last Admin Dose Admin Acetaminophen (Tylenol Tab) 650 mg Q4HP PRN PO fever/MILD PAIN (PS 1-4) 03/10/21 15:30 03/11/21 19:52 Amitriptyline HCl (Elavil) 50 mg QHS PO 03/10/21 21:00 03/11/21 19:51 Amlodipine Besylate (Norvasc) 10 mg QHS PO 03/10/21 21:00 03/11/21 13:05 DC 03/10/21 20:34 Aspirin (Ecotrin) 81 mg DAILY PO 03/11/21 09:00 03/12/21 09:32 Carbidopa/Levodopa (Sinemet 25/100) 2 tab BID PO 03/10/21 21:00 03/12/21 09:32 Clopidogrel Bisulfate (PLAVix) 75 mg DAILY PO 03/11/21 09:00 03/12/21 09:32 Dextrose/Water 1,000 ml @ 60 mls/hr [id number] IV 03/11/21 11:15 03/12/21 04:36 EZETIMIBE (Zetia) 10 mg QHS PO 03/10/21 21:00 03/11/21 19:51 Finasteride (Proscar) 5 mg DAILY PO 03/11/21 09:00 03/12/21 09:32 Heparin Sodium (Porcine) (Heparin) 5,000 units Q12H SC 03/10/21 21:00 03/12/21 09:32 Lidocaine/ Diphenhydr/Alum/ Mg/Simeth (Magic Mouthwash) 5ML-use swab to rinse ... AC MT 03/10/21 17:30 03/12/21 09:31 Losartan Potassium (Cozaar) 25 mg DAILY PO 03/11/21 09:00 03/11/21 13:05 DC 03/11/21 09:04 Pantoprazole Sodium (Protonix) 40 mg DAILY PO 03/11/21 09:00 03/12/21 09:32 Rosuvastatin Calcium (Crestor) 40 mg QHS PO 03/10/21 21:00 03/11/21 19:52 Senna/Docusate Sodium (Senokot S) 2 tab BID PO 03/10/21 21:00 03/12/21 09:32 Tamsulosin HCl (Flomax) 0.8 mg DAILY PO 03/11/21 09:00 03/12/21 09:32 JOAQUIN SARABIA MD Mar 12, 2021 10:33
[2021-03-12 11:33] LABS: BASO % 0.5 % (0.0-1.0); EOS # 0.2 10^3/uL (0.0-0.5); EOS % 2.4 % (0.0-3.0); HEMATOCRIT 38.9 % (42.0-52.0); HEMOGLOBIN 12.9 g/dl (13.5-17.5); LYMPH # 0.8 10^3/uL (1.5-5.0); LYMPH % 9.4 % (24.0-44.0); MEAN CORPUSCULAR HEMOGLOBIN 32.4 pg (27.0-33.0); MEAN CORPUSCULAR HGB CONC 33.2 g/dl (32.0-36.5); MEAN CORPUSCULAR VOLUME 97.7 fl (80.0-96.0); MONO # 0.9 10^3/uL (0.0-0.8); MONO % 11.7 % (2.0-8.0); NEUTROPHILS % 74.8 % (36.0-66.0); PLATELET COUNT, AUTOMATED 203 10^3/uL (150-450); RED BLOOD COUNT 3.98 10^6/uL (4.30-6.10)
[2021-03-12 12:02] LABS: CALCIUM LEVEL 8.8 MG/DL (8.8-10.2); CREATININE FOR GFR 1.24 MG/DL (0.70-1.30); GLOMERULAR FILTRATION RATE 59.9 (>42); POTASSIUM SERUM 3.7 MEQ/L (3.5-5.1)
[2021-03-12 14:00] VITALS: BP 152/70
[2021-03-12] MEDS: HYDROCORTISONE 1% CREAM 30 GM TOP SCH ×2 (14:10→20:10)
[2021-03-12] MEDS: VANICREAM MOISTURIZING SKIN CREAM 113GM TUBE TOP SCH ×2 (14:10→20:10)
--- NOTE | 2021-03-12 16:57 | REP ---
INDICATION: new cough. COMPARISON: Comparison chest x-ray March 06, 2021. TECHNIQUE: Two views.. FINDINGS: There are increased interstitial markings and some fibrotic linear density in the right base. The right mid lung field markings are improved compared with March 06, 2021. There is a linear density in the left base above the left hemidiaphragm which also appears slightly improved. Pleural thickening and fibrotic linear densities are seen in the left mid lung zone unchanged. Spine fusion hardware is noted in the lower thoracic spine. Borderline heart size unchanged. IMPRESSION: Right perihilar infiltrate appears somewhat improved. Bibasilar fibrotic markings again noted. Borderline heart size. <Electronically signed by Ismael Martinez > 03/12/21 [id number]
[2021-03-12] MEDS: guaiFENesin 200 MG TAB PO SCH ×2 (17:47→20:09)
[2021-03-12] MEDS: COMBIVENT RESPIMAT 100-20MCG INHALER 4GM INH SCH (19:51)
[2021-03-12 20:00] VITALS: BP 120/76
[2021-03-12] MEDS: EZETIMIBE 10MG TABLET (ZETIA) PO SCH (20:09)
[2021-03-12] MEDS: BACLOFEN 5MG PER 1/2 TABLET PO SCH (20:09)
[2021-03-12] MEDS: ROSUVASTATIN 10 MG TAB (CRESTOR) PO SCH (20:09)
[2021-03-12] MEDS: AMITRIPTYLINE 50 MG TAB PO SCH (20:09)
[2021-03-13] MEDS: D5W 1,000 ML IV SCH ×2 (00:07→12:25)
[2021-03-13] MEDS: REMEDY PHYTOPLEX Z-GUARD PASTE 113GM TUBE (FROM STOREROOM PRODUCT) TOP SCH ×5 (05:13→23:17)
[2021-03-13 06:00] VITALS: BP 138/52
[2021-03-13] MEDS: COMBIVENT RESPIMAT 100-20MCG INHALER 4GM INH SCH ×3 (07:18→19:48)
[2021-03-13] MEDS: MAGIC MOUTHWASH SUSPENSION BTL MT SCH ×3 (07:30→17:35)
[2021-03-13] MEDS: TAMSULOSIN 0.4 MG CAP PO SCH (10:08)
[2021-03-13] MEDS: HEPARIN SOD (PORCINE) 5000UNITS/ML 1ML VIAL/SYRINGE SC SCH ×2 (10:08→21:00)
[2021-03-13] MEDS: CLOPIDOGREL 75 MG TAB PO SCH (10:08)
[2021-03-13] MEDS: SENOKOT S TAB PO SCH ×2 (10:08→23:14)
[2021-03-13] MEDS: PANTOPRAZOLE 40MG TAB (PROTONIX) PO SCH (10:08)
[2021-03-13] MEDS: BACLOFEN 5MG PER 1/2 TABLET PO SCH ×2 (10:08→23:13)
[2021-03-13] MEDS: guaiFENesin 200 MG TAB PO SCH ×3 (10:08→23:14)
[2021-03-13] MEDS: SINEMET 25-100 MG TAB PO SCH ×2 (10:09→23:13)
[2021-03-13] MEDS: FINASTERIDE 5 MG TAB PO SCH (10:09)
[2021-03-13] MEDS: ASPIRIN 81MG ENTERIC TABLET PO SCH (10:09)
[2021-03-13] MEDS: VANICREAM MOISTURIZING SKIN CREAM 113GM TUBE TOP SCH ×2 (10:10→23:17)
[2021-03-13] MEDS: HYDROCORTISONE 1% CREAM 30 GM TOP SCH ×2 (10:10→23:17)
[2021-03-13 11:23] LABS: BASO % 0.3 % (0.0-1.0); EOS # 0.2 10^3/uL (0.0-0.5); EOS % 2.7 % (0.0-3.0); HEMATOCRIT 38.5 % (42.0-52.0); HEMOGLOBIN 12.4 g/dl (13.5-17.5); LYMPH # 0.5 10^3/uL (1.5-5.0); LYMPH % 6.1 % (24.0-44.0); MEAN CORPUSCULAR HEMOGLOBIN 31.6 pg (27.0-33.0); MEAN CORPUSCULAR HGB CONC 32.2 g/dl (32.0-36.5); MEAN CORPUSCULAR VOLUME 98.2 fl (80.0-96.0); MONO % 10.9 % (2.0-8.0); NEUTROPHILS % 79.7 % (36.0-66.0); PLATELET COUNT, AUTOMATED 201 10^3/uL (150-450); RED BLOOD COUNT 3.92 10^6/uL (4.30-6.10); WHITE BLOOD COUNT 8.7 10^3/uL (4.0-10.0)
[2021-03-13 12:02] LABS: BLOOD UREA NITROGEN 23 MG/DL (7-18); CALCIUM LEVEL 8.8 MG/DL (8.8-10.2); CARBON DIOXIDE LEVEL 30 MEQ/L (21-32); CHLORIDE LEVEL 103 MEQ/L (98-107); CREATININE FOR GFR 1.18 MG/DL (0.70-1.30); GLOMERULAR FILTRATION RATE > 60.0 (>42); GLUCOSE, FASTING 91 MG/DL (70-100); SODIUM LEVEL 137 MEQ/L (136-145)
[2021-03-13] MEDS ORDERED: **hydrALAZINE HCL** 25 MG TAB PO PRN (14:50)
[2021-03-13] MEDS ORDERED: LevoFLOXacin 750 MG TABLET PO ONE ×2 (14:55→16:00)
--- NOTE | 2021-03-13 14:58 | IPNPDOC ---
PM&R Progress Note DATE OF SERVICE: Mar 13, 2021 Seasonal Customer Service Associate Progress Note Subjective: Patient seen in his room stating he is still coughing. REVIEW OF SYSTEMS: The following is a completed review of systems and has been reviewed. Review of systems otherwise unremarkable. PAIN: Patient self reports no pain EYES: No recent vision changes EARS, NOSE, & THROAT: + dysphagia, +[place] CARDIOVASCULAR: Denies chest pain or palpitations PULMONARY: Denies shortness of breath GASTROINTESTINAL: Denies constipation/diarrhea GENITOURINARY: denies dysuria MUSCULOSKELETAL: left sided paresis NEUROLOGICAL:+ left sided paresis and parkinsons HEMATOLOGICAL: denies easy bruising SKIN:+ facial rash PSYCHIATRIC: Unremarkable All other review of systems found to be negative. PHYSICAL EXAMINATION: VITAL SIGNS: Please see below. GENERAL: Pleasant and cooperative. No acute distress. HEENT: PERRL. Extraocular movements intact. Clear conjunctiva, +left facial droop CARDIOVASCULAR: Regular rate and rhythm. No murmurs, rubs, or gallops LUNGS: Clear to auscultation bilaterally. No wheezes. No rhonchi ABDOMEN: Soft, nontender, nondistended. Positive bowel sounds. Normal active bowel sounds NEUROLOGICAL: Alert and oriented times three. Cranial nerves II through XII grossly intact. Sensation grossly intact, +dysarthria EXTREMITIES: 5/5 RUE, 3+/5 LUE 5\5 strength right lower extremity. 5-/5 strength in left lower extremity. SKIN: + silver plaque lesions on face LABORATORY DATA: Please see below. ASSESSMENT:80-year-old M with past medical history of HTN, parkinsons, TIA and CVA who presents status post right external capsule/pillai radiata lacunar stroke PLAN: 1. Rehab- PT/OT advance mobility and ADLs, strengthen/stretch/maintain ROM all 4limbs -HEARING EXAMINER- dysphagia due to stroke and possibly parkinsons- initially admitted on puree and nectar (downgraded today to pudding thickened) 2. Neuro- hx of TIA and CVA with new right external capsule/pillai radiata lacunar infarct with CTA showing severe right vertebral artery stenosis cont ASA, plavix and statin -repeat CTH showing no new hemorrhage, MRI brain showing new right basal ganglia ischemic infarct- discussed with Dr. Bell who, recs appreciated, permissive BPs for now, cont therapy -patient reassessed by HEARING EXAMINER and safe for pudding thickened liquids- will give gentle hydration overnight given poor po intake -hx of parkinsons cont sinemet 3. Cardiac- hx of HTn- BP meds on hold for permissive HTN x48 hours, will add back BP meds to start tonight -HLD cont statin, zetia -chronic diastolic CHF, poor po intake at this time, will monitor for fluid overload 4. Resp- aspiration precautions, oral care, monitor for infection -CT chest ordered to r/o infiltrate on 03-11-21 which was negative, given new stroke and worsening dysphagia with reported non-productive cough on 03-12-21, with f/u CXR showing new right lung base linear density, patient still with no leukocytosis or fever but given high risk for aspiration and mild new cough cont Levaquin, cont to monitor vitals and labs -combivent and guaifenesin ordered 5. - cont proscar and flomax for BPH, monitor PVRs 6. Pain- tylenol prn 7. DVT ppx- heparin 8. GI ppx- protonix 9. Skin- turn q2, zinc oxide to sacrum 10. Psych- cont elavil 11. Derm- facial psoriasis cont steroid cream 12. Dispo- tbd Allergies Coded Allergies: No Known Allergies (Unverified , 09/29/18) Vital Signs Vital Signs Date Time Temp Pulse Resp B/P (MAP) Pulse Ox O2 Delivery O2 Flow Rate FiO2 03/13/21 06:00 98.9 57 18 138/52 (80) 95 Room Air Laboratory Data CBC/BMP Laboratory Tests 03/13/21 11:11 Labs 24H Laboratory Tests 2 03/13/21 11:11: Immature Granulocyte % (Auto) 0.3, Neutrophils (%) (Auto) 79.7H, Lymphocytes (%) (Auto) 6.1L, Monocytes (%) (Auto) 10.9H, Eosinophils (%) (Auto) 2.7, Basophils (%) (Auto) 0.3, Neutrophils # (Auto) 7.0, Lymphocytes # (Auto) 0.5L, Monocytes # (Auto) 1.0H, Eosinophils # (Auto) 0.2, Basophils # (Auto) 0.0, Nucleated Red Blood Cells % (auto) 0.0, Anion Gap 4L, Glomerular Filtration Rate > 60.0, Calcium Level 8.8 Current Medications Current Medications Current Medications Medications (Trade) Dose Ordered Sig/Atiya Route PRN Reason Start Time Stop Time Status Last Admin Dose Admin Acetaminophen (Tylenol Tab) 650 mg Q4HP PRN PO fever/MILD PAIN (PS 1-4) 03/10/21 15:30 03/11/21 19:52 Albuterol/ Ipratropium (Combivent Respimat 100-20mcg) 1 puff RTID INH 03/12/21 20:00 03/13/21 12:14 Amitriptyline HCl (Elavil) 50 mg QHS PO 03/10/21 21:00 03/12/21 20:09 Amlodipine Besylate (Norvasc) 10 mg QHS PO 03/10/21 21:00 03/11/21 13:05 DC 03/10/21 20:34 Aspirin (Ecotrin) 81 mg DAILY PO 03/11/21 09:00 03/13/21 10:09 Baclofen (Lioresal) 5 mg BID PO 03/12/21 21:00 03/13/21 10:08 Carbidopa/Levodopa (Sinemet 25/100) 2 tab BID PO 03/10/21 21:00 03/13/21 10:09 Clopidogrel Bisulfate (PLAVix) 75 mg DAILY PO 03/11/21 09:00 03/13/21 10:08 Dextrose/Water 1,000 ml @ 60 mls/hr [id number] IV 03/11/21 11:15 03/13/21 12:25 Emollient Cream (Vanicream) apply to entire face af... BID TOP 03/12/21 09:00 03/13/21 10:10 EZETIMIBE (Zetia) 10 mg QHS PO 03/10/21 21:00 03/12/21 20:09 Finasteride (Proscar) 5 mg DAILY PO 03/11/21 09:00 03/13/21 10:09 Guaifenesin (Robitussin Tab) 400 mg TID PO 03/12/21 16:00 03/13/21 10:08 Heparin Sodium (Porcine) (Heparin) 5,000 units Q12H SC 03/10/21 21:00 03/13/21 10:08 Hydrocortisone (Hydrocortisone 1% Cream) apply to areas of plaques... BID TOP 03/12/21 09:00 03/13/21 10:10 Lidocaine/ Diphenhydr/Alum/ Mg/Simeth (Magic Mouthwash) 5ML-use swab to rinse ... AC MT 03/10/21 17:30 03/13/21 12:25 Losartan Potassium (Cozaar) 25 mg DAILY PO 03/11/21 09:00 03/11/21 13:05 DC 03/11/21 09:04 Pantoprazole Sodium (Protonix) 40 mg DAILY PO 03/11/21 09:00 03/13/21 10:08 Rosuvastatin Calcium (Crestor) 40 mg QHS PO 03/10/21 21:00 03/12/21 20:09 Senna/Docusate Sodium (Senokot S) 2 tab BID PO 03/10/21 21:00 03/13/21 10:08 Tamsulosin HCl (Flomax) 0.8 mg DAILY PO 03/11/21 09:00 03/13/21 10:08 JOAQUIN SARABIA MD Mar 13, 2021 14:58
[2021-03-13] MEDS: LOSARTAN 25 MG TAB PO SCH (15:36)
--- NOTE | 2021-03-13 20:49 | IPNPDOC ---
Text Note Date of Service The patient was seen on 03/13/21. NOTE Alerted by nursing staff at approx 2030 that patient was experiencing new onset gross hematuria into and around his catheter from the urethra. Patient had apparently had his chronic indwelling beckham catheter changed today. Saw and examined patient at this time who told me he was only in some mild discomfort in his penis. Physical exam showed oozing red blood from the urethra around the beckham catheter as well as a small amount of red blood in the catheter tubing and bag itself. Called urology at this point in time who recommended exchanging catheter for three-way beckham as cbi may be needed, however felt that this is most likely d/t catheter being in the prostate. At this time, I myself and resident physician Dr. Grossman removed indwelling beckham catheter as well as a large clot from the urethra. A small stream of bright red blood came out of the urethra but quickly dissipated with pressure to the penis. Blood and clots were wiped up and a urojet was then inserted. Patient was cleaned and draped in a sterile fashion. Two attempts were made to pass a beckham catheter into patients bladder by myself and Dr. Grossman, however were unable to pass patient's enlarged prostate. Irritation of patient's urethra and prostate from these attempts caused patient to begin bleeding again, thus decision was made to stop and again consult urology for beckham catheter placement and aid in management of gross hematuria 2/2 traumatic beckham placement. #Gross hematuria - 2/2 traumatic beckham placement - Dr. Arriaga, urology, has been consulted and has agreed to come evaluate patient. Assistance and recommendations greatly appreciated - Will hold patients prophylactic heparin at this time d/t bleeding - Will check h/h - pending color and amount of drainage from beckham catheter, cbi may be warranted VS,Fishbone, I+O VS, Fishbone, I+O Laboratory Tests 03/13/21 11:11 Vital Signs Date Time Temp Pulse Resp B/P (MAP) Pulse Ox O2 Delivery O2 Flow Rate FiO2 03/13/21 06:00 98.9 57 18 138/52 (80) 95 Room Air I&O- Last 24 Hours up to 6 AM 03/13/21 06:00 Intake Total 0 ml Output Total 1225 ml Balance -1225 ml VERÓNIAC JIMENES Mar 13, 2021 20:49
[2021-03-13] MEDS ORDERED: LIDOCAINE 2% 5ML JELLY UROJET TOP ONE (20:50)
--- NOTE | 2021-03-13 22:53 | SMCUROLCON ---
Urology Consultation General Date of Consultation 03/13/21 Reason For Consultation asked to see re catheter placement and hematuria History of Present Illness Hematuria noted. Bleeding around and through catheter. Aspirin, Plavix and sq heparin. Recovering from stroke. I was called re hematuria. Sounded as if balloon of catheter was in prostate. I suggested removing catheter and replacing with another. I was called later because attempts to place catheter were unsuccessful. 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 cervical radiculopathy pseudogout history from chart pt unable to provide information Surgical Hstory lumbar spine surgery tup sb resection colonoscopies Social History * Smoker: current smoker Alcohol: other (no current alcohol use but h/o abuse) Medications Current Medications Current Medications Medications (Trade) Dose Ordered Sig/Atiya Route PRN Reason Start Time Stop Time Status Last Admin Dose Admin Acetaminophen (Tylenol Tab) 650 mg Q4HP PRN PO fever/MILD PAIN (PS 1-4) 03/10/21 15:30 03/11/21 19:52 Albuterol/ Ipratropium (Combivent Respimat 100-20mcg) 1 puff RTID INH 03/12/21 20:00 03/13/21 19:48 Amitriptyline HCl (Elavil) 50 mg QHS PO 03/10/21 21:00 03/12/21 20:09 Amlodipine Besylate (Norvasc) 10 mg QHS PO 03/10/21 21:00 03/11/21 13:05 DC 03/10/21 20:34 Amlodipine Besylate (Norvasc) 10 mg QHS PO 03/13/21 21:00 Aspirin (Ecotrin) 81 mg DAILY PO 03/11/21 09:00 03/13/21 10:09 Baclofen (Lioresal) 5 mg BID PO 03/12/21 21:00 03/13/21 10:08 Carbidopa/Levodopa (Sinemet 25/100) 2 tab BID PO 03/10/21 21:00 03/13/21 10:09 Clopidogrel Bisulfate (PLAVix) 75 mg DAILY PO 03/11/21 09:00 03/13/21 10:08 Dextrose/Water 1,000 ml @ 60 mls/hr [id number] IV 03/11/21 11:15 03/13/21 14:59 DC 03/13/21 12:25 Emollient Cream (Vanicream) apply to entire face af... BID TOP 03/12/21 09:00 03/13/21 10:10 EZETIMIBE (Zetia) 10 mg QHS PO 03/10/21 21:00 03/12/21 20:09 Finasteride (Proscar) 5 mg DAILY PO 03/11/21 09:00 03/13/21 10:09 Guaifenesin (Robitussin Tab) 400 mg TID PO 03/12/21 16:00 03/13/21 15:35 Heparin Sodium (Porcine) (Heparin) 5,000 units Q12H SC 03/10/21 21:00 Hold 03/13/21 10:08 Hydralazine HCl (Apresoline) 25 mg Q6H PRN PO sbp >140 03/13/21 14:50 Hydrocortisone (Hydrocortisone 1% Cream) apply to areas of plaques... BID TOP 03/12/21 09:00 03/13/21 10:10 Levofloxacin (Levaquin) 250 mg DAILY@06 PO 03/14/21 06:00 03/13/21 15:36 DC Levofloxacin (Levaquin) 750 mg Q48H PO 03/15/21 06:00 Lidocaine/ Diphenhydr/Alum/ Mg/Simeth (Magic Mouthwash) 5ML-use swab to rinse ... AC MT 03/10/21 17:30 03/13/21 17:35 Losartan Potassium (Cozaar) 12.5 mg DAILY PO 03/13/21 09:00 03/13/21 15:36 Losartan Potassium (Cozaar) 25 mg DAILY PO 03/11/21 09:00 03/11/21 13:05 DC 03/11/21 09:04 Pantoprazole Sodium (Protonix) 40 mg DAILY PO 03/11/21 09:00 03/13/21 10:08 Rosuvastatin Calcium (Crestor) 40 mg QHS PO 03/10/21 21:00 03/12/21 20:09 Senna/Docusate Sodium (Senokot S) 2 tab BID PO 03/10/21 21:00 03/13/21 10:08 Tamsulosin HCl (Flomax) 0.8 mg DAILY PO 03/11/21 09:00 10/1/21 10:08 Allergies Allergies: Coded Allergies: No Known Allergies (Unverified , 09/29/18) Review of Systems General: Reports: ROS Unobtainable (pt recovering from stroke, aphasia) Physical Examination General Exam: Alert, No Acute Distress EYE EXAM: Conjunctiva & lids normal ENT EXAM: Mucous membr. moist/pink Neck Exam: Supple Chest Exam: Clear to auscultation Heart Exam: Regular Rhythm Abdomen Exam: Soft; No: Tenderness Male Exam: Normal Genital Exam Male Exam bleeding from tip of penis Extremity Exam: No: Cyanosis Skin Exam: Nl turgor and temperature Neuro Exam: Other (aphasia); No: Normal Speech Psych Exam: Other (cooperative) Vital Signs/I&O Vital Signs Date Time Temp Pulse Resp B/P (MAP) Pulse Ox O2 Delivery O2 Flow Rate FiO2 03/13/21 06:00 98.9 57 18 138/52 (80) 95 Room Air I&O- Last 24 Hours up to 6 AM 03/13/21 05:59 Intake Total 0 ml Output Total 625 ml Balance -625 ml Laboratory Data 24H Labs Laboratory Tests 2 03/13/21 11:11: Immature Granulocyte % (Auto) 0.3, Neutrophils (%) (Auto) 79.7H, Lymphocytes (%) (Auto) 6.1L, Monocytes (%) (Auto) 10.9H, Eosinophils (%) (Auto) 2.7, Basophils (%) (Auto) 0.3, Neutrophils # (Auto) 7.0, Lymphocytes # (Auto) 0.5L, Monocytes # (Auto) 1.0H, Eosinophils # (Auto) 0.2, Basophils # (Auto) 0.0, Nucleated Red Blood Cells % (auto) 0.0, Anion Gap 4L, Glomerular Filtration Rate > 60.0, Calci um Level 8.8 03/13/21 15:23: Lactic Acid Level 1.6 CBC/BMP Laboratory Tests 03/13/21 11:11 Assessment 18fr coude catheter placed. 10cc in balloon. Thin bloody urine drained, though not much. leave catheter in place, don't remove irrigate catheter every 3hr and prn stop tamsulosin, no need with catheter in place if bleeding doesn't stop, may need to hold aspirin and Plavix, but I would continue both for now thank you [phone] MICHAEL HAYES MD Mar 13, 2021 22:53
[2021-03-13] MEDS: EZETIMIBE 10MG TABLET (ZETIA) PO SCH (23:13)
[2021-03-13] MEDS: AMITRIPTYLINE 50 MG TAB PO SCH (23:14)
[2021-03-13] MEDS: ROSUVASTATIN 10 MG TAB (CRESTOR) PO SCH (23:14)
[2021-03-14] MEDS: REMEDY PHYTOPLEX Z-GUARD PASTE 113GM TUBE (FROM STOREROOM PRODUCT) TOP SCH ×4 (03:30→21:52)
[2021-03-14] MEDS ORDERED: LevoFLOXacin 250 MG TABLET PO SCH (06:00)
[2021-03-14] MEDS: COMBIVENT RESPIMAT 100-20MCG INHALER 4GM INH SCH ×3 (07:09→19:31)
[2021-03-14] MEDS: MAGIC MOUTHWASH SUSPENSION BTL MT SCH ×3 (07:37→16:05)
[2021-03-14] MEDS: BACLOFEN 5MG PER 1/2 TABLET PO SCH ×2 (07:37→21:50)
[2021-03-14] MEDS: SENOKOT S TAB PO SCH ×2 (07:38→21:50)
[2021-03-14] MEDS: CLOPIDOGREL 75 MG TAB PO SCH (07:38)
[2021-03-14] MEDS: PANTOPRAZOLE 40MG TAB (PROTONIX) PO SCH (07:38)
[2021-03-14] MEDS: LOSARTAN 25 MG TAB PO SCH (07:39)
[2021-03-14] MEDS: ASPIRIN 81MG ENTERIC TABLET PO SCH (07:40)
[2021-03-14] MEDS: guaiFENesin 200 MG TAB PO SCH ×3 (07:41→21:50)
[2021-03-14] MEDS: SINEMET 25-100 MG TAB PO SCH ×2 (07:41→21:50)
[2021-03-14] MEDS: FINASTERIDE 5 MG TAB PO SCH (07:41)
[2021-03-14] MEDS: HYDROCORTISONE 1% CREAM 30 GM TOP SCH ×2 (07:42→21:51)
[2021-03-14] MEDS: VANICREAM MOISTURIZING SKIN CREAM 113GM TUBE TOP SCH ×2 (07:43→21:51)
[2021-03-14 08:23] LABS: BASO % 0.2 % (0.0-1.0); EOS # 0.1 10^3/uL (0.0-0.5); EOS % 0.6 % (0.0-3.0); HEMATOCRIT 36.3 % (42.0-52.0); HEMOGLOBIN 11.7 g/dl (13.5-17.5); LYMPH # 0.7 10^3/uL (1.5-5.0); LYMPH % 8.2 % (24.0-44.0); MEAN CORPUSCULAR HEMOGLOBIN 31.6 pg (27.0-33.0); MEAN CORPUSCULAR HGB CONC 32.2 g/dl (32.0-36.5); MEAN CORPUSCULAR VOLUME 98.1 fl (80.0-96.0); MONO # 1.4 10^3/uL (0.0-0.8); MONO % 15.9 % (2.0-8.0); NEUTROPHILS # 6.5 10^3/uL (1.5-8.5); NEUTROPHILS % 74.6 % (36.0-66.0); PLATELET COUNT, AUTOMATED 197 10^3/uL (150-450); WHITE BLOOD COUNT 8.7 10^3/uL (4.0-10.0)
--- NOTE | 2021-03-14 12:19 | IPNPDOC ---
Date Seen The patient was seen on 03/14/21. Progress Note pt seen and examined sitting in chair catheter in place draining urine with old blood avss creatinine stable no leukocytosis I believe catheter was placed recently and perhaps for convenience sake has been on finasteride and tamsulosin s/p turp I would remove catheter early next week as long as acute bleeding has resolved no acute bleeding now it seems, blood in urine is old rather than new continue finasteride restart tamsulosin 0.4mg daily before voiding trial I ordered urine for cx no gu intervention currently needed thank you [phone] VS, I&O, 24H, [facility] Vital Signs/I&O Vital Signs Date Time Temp Pulse Resp B/P (MAP) Pulse Ox O2 Delivery O2 Flow Rate FiO2 03/14/21 07:39 120/55 03/13/21 23:16 90 03/13/21 20:00 98.8 17 98 Room Air I&O- Last 24 Hours up to 6 AM 03/14/21 06:00 Intake Total 435 ml Output Total 700 ml Balance -265 ml Laboratory Data 24H LABS Laboratory Tests 2 03/13/21 15:23: Lactic Acid Level 1.6 03/14/21 07:41: Immature Granulocyte % (Auto) 0.5, Neutrophils (%) (Auto) 74.6H, Lymphocytes (%) (Auto) 8.2L, Monocytes (%) (Auto) 15.9H, Eosinophils (%) (Auto) 0.6, Basophils (%) (Auto) 0.2, Neutrophils # (Auto) 6.5, Lymphocytes # (Auto) 0.7L, Monocytes # (Auto) 1.4H, Eosinophils # (Auto) 0.1, Basophils # (Auto) 0.0, Nucleated Red Blood Cells % (auto) 0.0 CBC/BMP Laboratory Tests 03/14/21 07:41 MICHAEL HAYES MD Mar 14, 2021 12:19
[2021-03-14 14:00] VITALS: BP 141/60
[2021-03-14 20:00] VITALS: BP 137/64
[2021-03-14] MEDS: AMITRIPTYLINE 50 MG TAB PO SCH (21:50)
[2021-03-14] MEDS: EZETIMIBE 10MG TABLET (ZETIA) PO SCH (21:50)
[2021-03-14] MEDS: ROSUVASTATIN 10 MG TAB (CRESTOR) PO SCH (21:51)
[2021-03-15] MEDS: REMEDY PHYTOPLEX Z-GUARD PASTE 113GM TUBE (FROM STOREROOM PRODUCT) TOP SCH ×4 (05:46→21:58)
[2021-03-15] MEDS: LevoFLOXacin 750 MG TABLET PO SCH (05:46)
[2021-03-15 06:00] VITALS: BP 124/62
[2021-03-15] MEDS: COMBIVENT RESPIMAT 100-20MCG INHALER 4GM INH SCH ×3 (07:07→20:42)
[2021-03-15] MEDS: SENOKOT S TAB PO SCH ×2 (09:23→21:57)
[2021-03-15] MEDS: ASPIRIN 81MG ENTERIC TABLET PO SCH (09:23)
[2021-03-15] MEDS: PANTOPRAZOLE 40MG TAB (PROTONIX) PO SCH (09:23)
[2021-03-15] MEDS: guaiFENesin 200 MG TAB PO SCH ×3 (09:23→21:57)
[2021-03-15] MEDS: LOSARTAN 25 MG TAB PO SCH (09:24)
[2021-03-15] MEDS: FINASTERIDE 5 MG TAB PO SCH (09:24)
[2021-03-15] MEDS: BACLOFEN 5MG PER 1/2 TABLET PO SCH ×2 (09:24→21:57)
[2021-03-15] MEDS: CLOPIDOGREL 75 MG TAB PO SCH (09:24)
[2021-03-15] MEDS: SINEMET 25-100 MG TAB PO SCH ×2 (09:24→21:57)
[2021-03-15] MEDS: VANICREAM MOISTURIZING SKIN CREAM 113GM TUBE TOP SCH ×2 (09:25→21:58)
[2021-03-15] MEDS: HYDROCORTISONE 1% CREAM 30 GM TOP SCH ×2 (09:27→21:58)
[2021-03-15] MEDS: MAGIC MOUTHWASH SUSPENSION BTL MT SCH ×3 (09:28→16:44)
[2021-03-15 14:00] VITALS: BP 131/62
[2021-03-15 20:00] VITALS: BP 108/63
[2021-03-15] MEDS: EZETIMIBE 10MG TABLET (ZETIA) PO SCH (21:53)
[2021-03-15] MEDS: ROSUVASTATIN 10 MG TAB (CRESTOR) PO SCH (21:56)
[2021-03-15] MEDS: AMITRIPTYLINE 50 MG TAB PO SCH (21:57)
[2021-03-16] MEDS: REMEDY PHYTOPLEX Z-GUARD PASTE 113GM TUBE (FROM STOREROOM PRODUCT) TOP SCH ×4 (03:30→20:22)
[2021-03-16 05:55] LABS: BASO % 0.2 % (0.0-1.0); EOS # 0.2 10^3/uL (0.0-0.5); EOS % 2.5 % (0.0-3.0); HEMATOCRIT 34.5 % (42.0-52.0); HEMOGLOBIN 11.1 g/dl (13.5-17.5); LYMPH % 11.9 % (24.0-44.0); MEAN CORPUSCULAR HEMOGLOBIN 31.8 pg (27.0-33.0); MEAN CORPUSCULAR HGB CONC 32.2 g/dl (32.0-36.5); MEAN CORPUSCULAR VOLUME 98.9 fl (80.0-96.0); MONO # 1.2 10^3/uL (0.0-0.8); MONO % 14.2 % (2.0-8.0); NEUTROPHILS # 6.2 10^3/uL (1.5-8.5); NEUTROPHILS % 70.7 % (36.0-66.0); PLATELET COUNT, AUTOMATED 213 10^3/uL (150-450); RED BLOOD COUNT 3.49 10^6/uL (4.30-6.10); WHITE BLOOD COUNT 8.7 10^3/uL (4.0-10.0)
[2021-03-16 06:17] VITALS: BP 162/75
[2021-03-16 06:21] LABS: CALCIUM LEVEL 9.1 MG/DL (8.8-10.2); CREATININE FOR GFR 1.26 MG/DL (0.70-1.30); GLOMERULAR FILTRATION RATE 58.8 (>42); POTASSIUM SERUM 4.3 MEQ/L (3.5-5.1)
[2021-03-16] MEDS: COMBIVENT RESPIMAT 100-20MCG INHALER 4GM INH SCH ×3 (07:21→20:00)
[2021-03-16] MEDS: guaiFENesin 200 MG TAB PO SCH ×3 (08:57→20:20)
[2021-03-16] MEDS: SENOKOT S TAB PO SCH ×2 (08:57→20:21)
[2021-03-16] MEDS: HEPARIN SOD (PORCINE) 5000UNITS/ML 1ML VIAL/SYRINGE SC SCH ×2 (08:57→20:19)
[2021-03-16] MEDS: PANTOPRAZOLE 40MG TAB (PROTONIX) PO SCH (08:58)
[2021-03-16] MEDS: SINEMET 25-100 MG TAB PO SCH ×2 (08:58→20:20)
[2021-03-16] MEDS: ASPIRIN 81MG ENTERIC TABLET PO SCH (08:58)
[2021-03-16] MEDS: FINASTERIDE 5 MG TAB PO SCH (08:58)
[2021-03-16] MEDS: BACLOFEN 5MG PER 1/2 TABLET PO SCH ×3 (08:58→20:20)
[2021-03-16] MEDS: CLOPIDOGREL 75 MG TAB PO SCH (08:58)
[2021-03-16] MEDS: MAGIC MOUTHWASH SUSPENSION BTL MT SCH ×3 (08:59→17:30)
[2021-03-16] MEDS: LOSARTAN 25 MG TAB PO SCH (09:00)
[2021-03-16] MEDS: VANICREAM MOISTURIZING SKIN CREAM 113GM TUBE TOP SCH ×2 (09:01→20:22)
[2021-03-16] MEDS: HYDROCORTISONE 1% CREAM 30 GM TOP SCH ×2 (09:01→20:21)
--- NOTE | 2021-03-16 10:22 | IPNPDOC ---
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 REVIEW OF SYSTEMS: The following is a completed review of systems and has been reviewed. Review of systems otherwise unremarkable. PAIN: Patient self reports no pain EYES: No recent vision changes EARS, NOSE, & THROAT: + dysphagia, +[place] CARDIOVASCULAR: Denies chest pain or palpitations PULMONARY: Denies shortness of breath GASTROINTESTINAL: Denies constipation/diarrhea GENITOURINARY: denies dysuria MUSCULOSKELETAL: left sided paresis NEUROLOGICAL:+ left sided paresis and parkinsons HEMATOLOGICAL: denies easy bruising SKIN:+ facial rash PSYCHIATRIC: Unremarkable All other review of systems found to be negative. PHYSICAL EXAMINATION: VITAL SIGNS: Please see below. GENERAL: Pleasant and cooperative. No acute distress. HEENT: PERRL. Extraocular movements intact. Clear conjunctiva, +left facial droop CARDIOVASCULAR: Regular rate and rhythm. No murmurs, rubs, or gallops LUNGS: Clear to auscultation bilaterally. No wheezes. No rhonchi ABDOMEN: Soft, nontender, nondistended. Positive bowel sounds. Normal active bowel sounds NEUROLOGICAL: Alert and oriented times three. Cranial nerves II through XII grossly intact. Sensation grossly intact, +dysarthria EXTREMITIES: 5/5 RUE, 3+/5 LUE 5\5 strength right lower extremity. 5-/5 strength in left lower extremity. SKIN: + silver plaque lesions on face LABORATORY DATA: Please see below. ASSESSMENT:80-year-old M with past medical history of HTN, parkinsons, TIA and CVA who presents status post right external capsule/pillai radiata lacunar stroke PLAN: 1. Rehab- PT/OT advance mobility and ADLs, strengthen/stretch/maintain ROM all 4limbs -WOOD SCALER- dysphagia due to stroke and possibly parkinsons- initially admitted on puree and nectar (downgraded to pudding thickened)- MBS scheduled for tomorrow 2. Neuro- hx of TIA and CVA with new right external capsule/pillai radiata lacunar infarct with CTA showing severe right vertebral artery stenosis cont ASA, plavix and statin -03-11-21 repeat CTH showing no new hemorrhage, MRI brain showing new right basal ganglia ischemic infarct- case discussed with Dr. Bell who, recs appreciated, s/p permissive HTN -patient reassessed by WOOD SCALER and safe for pudding thickened liquids- cont gentle hydration given poor po intake -hx of parkinsons cont sinemet 3. Cardiac- hx of HTn- cont BP meds -HLD cont statin, zetia -chronic diastolic CHF, poor po intake at this time, will monitor for fluid overload while receiving gentle IVF 4. Resp- aspiration precautions, oral care, monitor for infection -CT chest ordered to r/o infiltrate on 03-11-21 which was negative, given new stroke and worsening dysphagia with reported non-productive cough on 03-12-21, with f/u CXR showing new right lung base linear density, patient still with no leukocytosis or fever but given high risk for aspiration and mild new cough started on Levaquin, cont to monitor vitals and labs -combivent and guaifenesin ordered 5. - cont proscar and flomax for BPH, beckham placed Tuesday overnight due to frequent ICs in setting of retention with hematuria- urology assisted and recommended bladder irrigation- heparin d/c'd- Hgb remains stable, will cont to monitor 6. Pain- tylenol prn 7. DVT ppx- heparin d/c'd due to heamturia- on ASa and plavix 8. GI ppx- protonix 9. Skin- turn q2, zinc oxide to sacrum 10. Psych- cont elavil 11. Derm- facial psoriasis cont steroid cream- improving 12. Dispo- tbd Allergies Coded Allergies: No Known Allergies (Unverified , 09/29/18) Vital Signs Vital Signs Date Time Temp Pulse Resp B/P (MAP) Pulse Ox O2 Delivery O2 Flow Rate FiO2 03/16/21 09:00 146/65 03/16/21 06:17 98.8 53 16 94 Room Air Laboratory Data CBC/BMP Laboratory Tests 03/16/21 05:29 Labs 24H Laboratory Tests 2 03/16/21 05:29: Immature Granulocyte % (Auto) 0.5, Neutrophils (%) (Auto) 70.7H, Lymphocytes (%) (Auto) 11.9L, Monocytes (%) (Auto) 14.2H, Eosinophils (%) (Auto) 2.5, Basophils (%) (Auto) 0.2, Neutrophils # (Auto) 6.2, Lymphocytes # (Auto) 1.0L, Monocytes # (Auto) 1.2H, Eosinophils # (Auto) 0.2, Basophils # (Auto) 0.0, Nucleated Red Blood Cells % (auto) 0.0, Anion Gap 5L, Glomerular Filtration Rate 58.8, Calcium Level 9.1 Microbiology Microbiology 03/14/21 Urine Culture, Received Pending Current Medications Current Medications Current Medications Medications (Trade) Dose Ordered Sig/Atiya Route PRN Reason Start Time Stop Time Status Last Admin Dose Admin Acetaminophen (Tylenol Tab) 650 mg Q4HP PRN PO fever/MILD PAIN (PS 1-4) 03/10/21 15:30 03/11/21 19:52 Albuterol/ Ipratropium (Combivent Respimat 100-20mcg) 1 puff RTID INH 03/12/21 20:00 03/16/21 07:21 Amitriptyline HCl (Elavil) 50 mg QHS PO 03/10/21 21:00 03/15/21 21:57 Amlodipine Besylate (Norvasc) 10 mg QHS PO 03/10/21 21:00 03/11/21 13:05 DC 03/10/21 20:34 Amlodipine Besylate (Norvasc) 10 mg QHS PO 03/13/21 21:00 03/14/21 21:50 Aspirin (Ecotrin) 81 mg DAILY PO 03/11/21 09:00 03/16/21 08:58 Baclofen (Lioresal) 5 mg BID PO 03/12/21 21:00 03/16/21 08:58 Carbidopa/Levodopa (Sinemet 25/100) 2 tab BID PO 03/10/21 21:00 03/16/21 08:58 Clopidogrel Bisulfate (PLAVix) 75 mg DAILY PO 03/11/21 09:00 03/16/21 08:58 Dextrose/Sodium Chloride 1,000 ml @ 60 mls/hr [id number] IV 03/16/21 10:15 Dextrose/Water 1,000 ml @ 60 mls/hr [id number] IV 03/11/21 11:15 03/13/21 14:59 DC 03/13/21 12:25 Emollient Cream (Vanicream) apply to entire face af... BID TOP 03/12/21 09:00 03/16/21 09:01 EZETIMIBE (Zetia) 10 mg QHS PO 03/10/21 21:00 03/15/21 21:53 Finasteride (Proscar) 5 mg DAILY PO 03/11/21 09:00 03/16/21 08:58 Guaifenesin (Robitussin Tab) 400 mg TID PO 03/12/21 16:00 03/16/21 08:57 Heparin Sodium (Porcine) (Heparin) 5,000 units Q12H SC 03/10/21 21:00 03/16/21 08:57 Hydralazine HCl (Apresoline) 25 mg Q6H PRN PO sbp >140 03/13/21 14:50 Hydrocortisone (Hydrocortisone 1% Cream) apply to areas of plaques... BID TOP 03/12/21 09:00 03/16/21 09:01 Levofloxacin (Levaquin) 250 mg DAILY@06 PO 03/14/21 06:00 03/13/21 15:36 DC Levofloxacin (Levaquin) 750 mg Q48H PO 03/15/21 06:00 03/15/21 05:46 Lidocaine/ Diphenhydr/Alum/ Mg/Simeth (Magic Mouthwash) 5ML-use swab to rinse ... AC MT 03/10/21 17:30 03/16/21 08:59 Losartan Potassium (Cozaar) 12.5 mg DAILY PO 03/13/21 09:00 03/16/21 09:00 Losartan Potassium (Cozaar) 25 mg DAILY PO 03/11/21 09:00 03/11/21 13:05 DC 03/11/21 09:04 Pantoprazole Sodium (Protonix) 40 mg DAILY PO 03/11/21 09:00 03/16/21 08:58 Rosuvastatin Calcium (Crestor) 40 mg QHS PO 03/10/21 21:00 03/15/21 21:56 Senna/Docusate Sodium (Senokot S) 2 tab BID PO 03/10/21 21:00 03/16/21 08:57 Tamsulosin HCl (Flomax) 0.8 mg DAILY PO 03/11/21 09:00 03/13/21 22:56 DC 03/13/21 10:08 JOAQUIN SARABIA MD Mar 16, 2021 10:21
[2021-03-16] MEDS: D5W/0.9% SODIUM CHLORIDE 1,000 ML IV SCH (13:08)
[2021-03-16] MEDS: MIRALAX *UNIT DOSE* 17GM PACKET PO SCH (13:11)
[2021-03-16 14:00] VITALS: BP 133/73
[2021-03-16 20:00] VITALS: BP 124/76
[2021-03-16] MEDS: AMITRIPTYLINE 50 MG TAB PO SCH (20:20)
[2021-03-16] MEDS: ROSUVASTATIN 10 MG TAB (CRESTOR) PO SCH (20:21)
[2021-03-16] MEDS: EZETIMIBE 10MG TABLET (ZETIA) PO SCH (20:21)
[2021-03-17] MEDS: D5W/0.9% SODIUM CHLORIDE 1,000 ML IV SCH ×2 (02:48→17:26)
[2021-03-17] MEDS: REMEDY PHYTOPLEX Z-GUARD PASTE 113GM TUBE (FROM STOREROOM PRODUCT) TOP SCH ×4 (02:48→21:23)
[2021-03-17 05:42] VITALS: BP 139/68
[2021-03-17] MEDS: LevoFLOXacin 750 MG TABLET PO SCH (05:50)
[2021-03-17] MEDS: MAGIC MOUTHWASH SUSPENSION BTL MT SCH ×3 (07:30→17:27)
[2021-03-17] MEDS: COMBIVENT RESPIMAT 100-20MCG INHALER 4GM INH SCH ×3 (08:00→20:00)
[2021-03-17] MEDS: SINEMET 25-100 MG TAB PO SCH ×2 (09:47→21:22)
[2021-03-17] MEDS: HEPARIN SOD (PORCINE) 5000UNITS/ML 1ML VIAL/SYRINGE SC SCH (09:47)
[2021-03-17] MEDS: MIRALAX *UNIT DOSE* 17GM PACKET PO SCH (09:47)
[2021-03-17] MEDS: guaiFENesin 200 MG TAB PO SCH ×3 (09:47→21:21)
[2021-03-17] MEDS: CLOPIDOGREL 75 MG TAB PO SCH (09:48)
[2021-03-17] MEDS: BACLOFEN 5MG PER 1/2 TABLET PO SCH ×3 (09:48→21:22)
[2021-03-17] MEDS: FINASTERIDE 5 MG TAB PO SCH (09:48)
[2021-03-17] MEDS: ASPIRIN 81MG ENTERIC TABLET PO SCH (09:48)
[2021-03-17] MEDS: PANTOPRAZOLE 40MG TAB (PROTONIX) PO SCH (09:48)
[2021-03-17] MEDS: SENOKOT S TAB PO SCH ×2 (09:48→21:20)
[2021-03-17] MEDS: LOSARTAN 25 MG TAB PO SCH (09:50)
--- NOTE | 2021-03-17 09:54 | IPNPDOC ---
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 REVIEW OF SYSTEMS: The following is a completed review of systems and has been reviewed. Review of systems otherwise unremarkable. PAIN: Patient self reports no pain EYES: No recent vision changes EARS, NOSE, & THROAT: + dysphagia, +[place] CARDIOVASCULAR: Denies chest pain or palpitations PULMONARY: Denies shortness of breath GASTROINTESTINAL: Denies constipation/diarrhea GENITOURINARY: denies dysuria MUSCULOSKELETAL: left sided paresis NEUROLOGICAL:+ left sided paresis and parkinsons, +dysarthric HEMATOLOGICAL: denies easy bruising SKIN:+ facial rash PSYCHIATRIC: Unremarkable All other review of systems found to be negative. PHYSICAL EXAMINATION: VITAL SIGNS: Please see below. GENERAL: Pleasant and cooperative. No acute distress. HEENT: PERRL. Extraocular movements intact. Clear conjunctiva, +left facial droop CARDIOVASCULAR: Regular rate and rhythm. No murmurs, rubs, or gallops LUNGS: Clear to auscultation bilaterally. No wheezes. No rhonchi ABDOMEN: Soft, nontender, nondistended. Positive bowel sounds. Normal active bowel sounds NEUROLOGICAL: Alert and oriented times three. Cranial nerves II through XII grossly intact. Sensation grossly intact, +dysarthria LUE wrist elbow and wrist flexion tone EXTREMITIES: 5/5 RUE, 3+/5 LUE 5\5 strength right lower extremity. 5-/5 strength in left lower extremity. SKIN: + silver plaque lesions on face LABORATORY DATA: Please see below. ASSESSMENT:80-year-old M with past medical history of HTN, parkinsons, TIA and CVA who presents status post right external capsule/pillai radiata lacunar str joey PLAN: 1. Rehab- PT/OT advance mobility and ADLs, strengthen/stretch/maintain ROM all 4limbs -WAITER/WAITRESS COUNTER- dysphagia due to stroke and possibly parkinsons- initially admitted on puree and nectar (downgraded to pudding thickened)- MBS scheduled for today 2. Neuro- hx of TIA and CVA with new right external capsule/pillai radiata lacunar infarct with CTA showing severe right vertebral artery stenosis cont ASA, plavix and statin -03-11-21 repeat CTH showing no new hemorrhage, MRI brain showing new right basal ganglia ischemic infarct- case discussed with Dr. Bell who, recs appreciated, s/p permissive HTN -patient reassessed by WAITER/WAITRESS COUNTER and safe for pudding thickened liquids- cont gentle hydration given poor po intake -hx of parkinsons cont sinemet -LUE and IGNACIO tone started on baclofen 3. Cardiac- hx of HTn- cont BP meds -HLD cont statin, zetia -chronic diastolic CHF, poor po intake at this time, will monitor for fluid overload while receiving gentle IVF 4. Resp- aspiration precautions, oral care, monitor for infection -CT chest ordered to r/o infiltrate on 03-11-21 which was negative, given new stroke and worsening dysphagia with reported non-productive cough on 03-12-21, with f/u CXR showing new right lung base linear density, patient still with no leukocytosis or fever but given high risk for aspiration and mild new cough started on Levaquin, cont to monitor vitals and labs -combivent and guaifenesin ordered 5. - cont proscar and flomax for BPH, beckham placed Tuesday overnight due to frequent ICs in setting of retention with hematuria- urology assisted and recommended bladder irrigation- heparin d/c'd- Hgb remains stable, will cont to monitor -Ucx + for yeast >100k, will discuss treatment options with Dr. Bran 6. Pain- tylenol prn 7. DVT ppx- heparin d/c'd due to hematuria- on ASa and plavix 8. GI ppx- protonix 9. Skin- turn q2, zinc oxide to sacrum 10. Psych- cont elavil 11. Derm- facial psoriasis cont steroid cream- improving 12. Dispo- tbd Allergies Coded Allergies: No Known Allergies (Unverified , 09/29/18) Vital Signs Vital Signs Date Time Temp Pulse Resp B/P (MAP) Pulse Ox O2 Delivery O2 Flow Rate FiO2 03/17/21 09:50 170/77 03/17/21 05:42 97.0 58 18 97 Room Air Microbiology Microbiology 03/14/21 Urine Culture, Received Pending Current Medications Current Medications Current Medications Medications (Trade) Dose Ordered Sig/Atiya Route PRN Reason Start Time Stop Time Status Last Admin Dose Admin Acetaminophen (Tylenol Tab) 650 mg Q4HP PRN PO fever/MILD PAIN (PS 1-4) 03/10/21 15:30 03/11/21 19:52 Albuterol/ Ipratropium (Combivent Respimat 100-20mcg) 1 puff RTID INH 03/12/21 20:00 03/16/21 14:36 Amitriptyline HCl (Elavil) 50 mg QHS PO 03/10/21 21:00 03/16/21 20:20 Amlodipine Besylate (Norvasc) 10 mg QHS PO 03/10/21 21:00 03/11/21 13:05 DC 03/10/21 20:34 Amlodipine Besylate (Norvasc) 10 mg QHS PO 03/13/21 21:00 03/16/21 20:20 Aspirin (Ecotrin) 81 mg DAILY PO 03/11/21 09:00 03/17/21 09:48 Baclofen (Lioresal) 5 mg BID PO 03/12/21 21:00 03/16/21 14:59 DC 03/16/21 08:58 Baclofen (Lioresal) 5 mg TID PO 03/16/21 16:00 03/17/21 09:48 Carbidopa/Levodopa (Sinemet 25/100) 2 tab BID PO 03/10/21 21:00 03/17/21 09:47 Clopidogrel Bisulfate (PLAVix) 75 mg DAILY PO 03/11/21 09:00 03/17/21 09:48 Dextrose/Sodium Chloride 1,000 ml @ 60 mls/hr [id number] IV 03/16/21 10:15 03/17/21 02:48 Dextrose/Water 1,000 ml @ 60 mls/hr [id number] IV 03/11/21 11:15 03/13/21 14:59 DC 03/13/21 12:25 Emollient Cream (Vanicream) apply to entire face af... BID TOP 03/12/21 09:00 03/16/21 20:22 EZETIMIBE (Zetia) 10 mg QHS PO 03/10/21 21:00 03/16/21 20:21 Finasteride (Proscar) 5 mg DAILY PO 03/11/21 09:00 03/17/21 09:48 Guaifenesin (Robitussin Tab) 400 mg TID PO 03/12/21 16:00 03/17/21 09:47 Heparin Sodium (Porcine) (Heparin) 5,000 units Q12H SC 03/10/21 21:00 03/17/21 09:47 Hydralazine HCl (Apresoline) 25 mg Q6H PRN PO sbp >140 03/13/21 14:50 03/17/21 09:52 DC Hydralazine HCl (Apresoline) 50 mg Q6H PO 03/17/21 09:55 UNV Hydrocortisone (Hydrocortisone 1% Cream) apply to areas of plaques... BID TOP 03/12/21 09:00 03/16/21 20:21 Levofloxacin (Levaquin) 250 mg DAILY@06 PO 03/14/21 06:00 03/13/21 15:36 DC Levofloxacin (Levaquin) 750 mg Q48H PO 03/15/21 06:00 03/17/21 05:50 Lidocaine/ Diphenhydr/Alum/ Mg/Simeth (Magic Mouthwash) 5ML-use swab to rinse ... AC MT 03/10/21 17:30 03/16/21 08:59 Losartan Potassium (Cozaar) 12.5 mg DAILY PO 03/13/21 09:00 03/17/21 09:52 DC 03/17/21 09:50 Losartan Potassium (Cozaar) 25 mg DAILY PO 03/11/21 09:00 03/11/21 13:05 DC 03/11/21 09:04 Pantoprazole Sodium (Protonix) 40 mg DAILY PO 03/11/21 09:00 03/17/21 09:48 Polyethylene Glycol (Miralax) 1 pkt DAILY PO 03/16/21 09:00 03/17/21 09:47 Rosuvastatin Calcium (Crestor) 40 mg QHS PO 03/10/21 21:00 03/16/21 20:21 Senna/Docusate Sodium (Senokot S) 2 tab BID PO 03/10/21 21:00 03/17/21 09:48 Tamsulosin HCl (Flomax) 0.8 mg DAILY PO 03/11/21 09:00 03/13/21 22:56 DC 03/13/21 10:08 JOAQUIN SARABIA MD Mar 17, 2021 09:54
[2021-03-17] MEDS: VANICREAM MOISTURIZING SKIN CREAM 113GM TUBE TOP SCH ×2 (09:56→21:23)
[2021-03-17] MEDS: HYDROCORTISONE 1% CREAM 30 GM TOP SCH ×2 (09:56→21:23)
[2021-03-17] MEDS: **hydrALAZINE** 50 MG TAB PO SCH ×3 (11:38→23:49)
[2021-03-17] MEDS ORDERED: BARIUM SULFATE 700 MG TABLET (E-Z-DISK) As Ordered ONE (13:45)
[2021-03-17] MEDS ORDERED: E-Z-PAQUE 96% w/w SUSP 176GM BTL As Ordered ONE (13:45)
[2021-03-17] MEDS ORDERED: VARIBAR NECTAR 40% w/v 240ML SUSP BTL As Ordered ONE (13:45)
[2021-03-17] MEDS ORDERED: VARIBAR PUDDING 40% w/v 230ML TUBE As Ordered ONE (13:45)
[2021-03-17 14:00] VITALS: BP 122/60
[2021-03-17] MEDS ORDERED: HOME MED LIST COMPLETE! XX SCH (15:20)
--- NOTE | 2021-03-17 16:34 | REP ---
INDICATION: dysphagia. COMPARISON: None. TECHNIQUE: The procedure was performed by Yodit Tariq [facility], under the direct supervision of Dr. Martinez. The procedure was performed with Merle Mena from speech pathology present. 5 ml aliquots of honey thick, pudding, mixed fruit with a honey thick base, soft food, and nectar thick consistency barium was administered. FINDINGS: Aspiration was visualized with nectar thick consistency, and penetration was visualized with mixed consistencies with a honey thick base. The detailed report of this examination will be provided by speech pathology. IMPRESSION: Penetration and aspiration as described above, a detailed report will be provided by speech pathology. 1.6 minutes of fluoroscopy time was utilized for this procedure. Some fluoroscopic images are performed with last image hold technology. These images require no additional radiation <Electronically signed by Yodit Tariq > 03/17/21 [id number] <Electronically signed by Ismael Martinez > 03/17/21 [id number]
[2021-03-17] MEDS: FLUCONAZOLE 100 MG TAB PO SCH (17:27)
[2021-03-17 20:00] VITALS: BP 128/74
[2021-03-17] MEDS: TRIAMCINOLONE ACET 0.1% CREAM 80 GM TOP SCH (20:54)
[2021-03-17] MEDS: AMITRIPTYLINE 50 MG TAB PO SCH (21:21)
[2021-03-17] MEDS: ROSUVASTATIN 10 MG TAB (CRESTOR) PO SCH (21:21)
[2021-03-17] MEDS: EZETIMIBE 10MG TABLET (ZETIA) PO SCH (21:22)
[2021-03-18] MEDS: REMEDY PHYTOPLEX Z-GUARD PASTE 113GM TUBE (FROM STOREROOM PRODUCT) TOP SCH ×4 (03:30→21:42)
[2021-03-18] MEDS: **hydrALAZINE** 50 MG TAB PO SCH ×3 (05:47→18:10)
[2021-03-18 05:50] VITALS: BP 138/64
[2021-03-18 06:32] LABS: BASO % 0.1 % (0.0-1.0); EOS # 0.2 10^3/uL (0.0-0.5); EOS % 3.2 % (0.0-3.0); LYMPH # 1.2 10^3/uL (1.5-5.0); LYMPH % 16.3 % (24.0-44.0); MEAN CORPUSCULAR HEMOGLOBIN 31.5 pg (27.0-33.0); MEAN CORPUSCULAR HGB CONC 31.4 g/dl (32.0-36.5); MEAN CORPUSCULAR VOLUME 100.3 fl (80.0-96.0); PLATELET COUNT, AUTOMATED 228 10^3/uL (150-450); RED BLOOD COUNT 3.49 10^6/uL (4.30-6.10); WHITE BLOOD COUNT 7.4 10^3/uL (4.0-10.0)
[2021-03-18] MEDS: COMBIVENT RESPIMAT 100-20MCG INHALER 4GM INH SCH ×3 (07:11→19:49)
[2021-03-18 07:39] LABS: BLOOD UREA NITROGEN 14 MG/DL (7-18); CALCIUM LEVEL 8.8 MG/DL (8.8-10.2); CARBON DIOXIDE LEVEL 27 MEQ/L (21-32); CHLORIDE LEVEL 111 MEQ/L (98-107); CREATININE FOR GFR 1.07 MG/DL (0.70-1.30); GLOMERULAR FILTRATION RATE > 60.0 (>42); GLUCOSE, FASTING 98 MG/DL (70-100); POTASSIUM SERUM 4.6 MEQ/L (3.5-5.1); SODIUM LEVEL 142 MEQ/L (136-145)
--- NOTE | 2021-03-18 09:16 | IPNPDOC ---
PM&R Progress Note DATE OF SERVICE: Mar 18, 2021 Rotary Engraver Progress Note Subjective: Patient seen in his room reporting he is feeling ok, reports his cough is a little better. He denies trouble breathing. REVIEW OF SYSTEMS: The following is a completed review of systems and has been reviewed. Review of systems otherwise unremarkable. PAIN: Patient self reports no pain EYES: No recent vision changes EARS, NOSE, & THROAT: + dysphagia, +CIRCLE CARDIOVASCULAR: Denies chest pain or palpitations PULMONARY: Denies shortness of breath GASTROINTESTINAL: Denies constipation/diarrhea GENITOURINARY: denies dysuria MUSCULOSKELETAL: left sided paresis NEUROLOGICAL:+ left sided paresis and parkinsons, +dysarthric HEMATOLOGICAL: denies easy bruising SKIN:+ facial rash PSYCHIATRIC: Unremarkable All other review of systems found to be negative. PHYSICAL EXAMINATION: VITAL SIGNS: Please see below. GENERAL: Pleasant and cooperative. No acute distress. HEENT: PERRL. Extraocular movements intact. Clear conjunctiva, +left facial droop CARDIOVASCULAR: Regular rate and rhythm. No murmurs, rubs, or gallops LUNGS: BIlat basilar crackles, No wheezes. No rhonchi ABDOMEN: Soft, nontender, nondistended. Positive bowel sounds. Normal active bowel sounds NEUROLOGICAL: Alert and oriented times three. Cranial nerves II through XII grossly intact. Sensation grossly intact, +dysarthria LUE wrist elbow and wrist flexion tone EXTREMITIES: 5/5 RUE, 3+/5 LUE 5\5 strength right lower extremity. 5-/5 strength in left lower extremity. SKIN: + silver plaque lesions on face LABORATORY DATA: Please see below. ASSESSMENT:80-year-old M with past medical history of HTN, parkinsons, TIA and CVA who presents status post right external capsule/pillai radiata lacunar stroke PLAN: 1. Rehab- PT/OT advance mobility and ADLs, strengthen/stretch/maintain ROM all 4limbs -JAVA ORACLE DEVELOPER- dysphagia due to stroke and possibly parkinsons- initially admitted on puree and nectar (downgraded to pudding thickened)- MBS scheduled for today 2. Neuro- hx of TIA and CVA with new right external capsule/pillai radiata lacunar infarct with CTA showing severe right vertebral artery stenosis cont ASA, plavix and statin -03-11-21 repeat CTH showing no new hemorrhage, MRI brain showing new right basal ganglia ischemic infarct- case discussed with Dr. Bell who, recs appreciated, s/p permissive HTN -patient reassessed by JAVA ORACLE DEVELOPER and safe for pudding thickened liquids- cont gentle h ydration given poor po intake -hx of parkinsons cont sinemet -LUE and IGNACIO tone started on baclofen 3. Cardiac- hx of HTn- cont BP meds -HLD cont statin, zetia -chronic diastolic CHF, poor po intake at this time, s/p IVF will give 1x dose of IV lasix for bibasilar crackles on exam, patient not in distress 4. Resp- aspiration precautions, oral care, monitor for infection -CT chest ordered to r/o infiltrate on 03-11-21 which was negative, given new stroke and worsening dysphagia with reported non-productive cough on 03-12-21, with f/u CXR showing new right lung base linear density, patient still with no leukocytosis or fever but given high risk for aspiration and mild new cough started on Levaquin, cont to monitor vitals and labs -combivent and guaifenesin ordered 5. - cont proscar and flomax for BPH, beckham placed Tuesday overnight due to frequent ICs in setting of retention with hematuria- urology assisted and recommended bladder irrigation- heparin d/c'd- Hgb remains stable, will cont to monitor, improving -Ucx + for yeast >100k and E faecalis- Dr. Bran consutled and patient started on fluconazole, patient already on levaquin for PNA which covers E faecalis 6. Pain- tylenol prn 7. DVT ppx- heparin d/c'd due to hematuria- on ASa and plavix 8. GI ppx- protonix 9. Skin- turn q2, zinc oxide to sacrum 10. Psych- cont elavil 11. Derm- facial psoriasis cont steroid cream- improving 12. Dispo- tbd Allergies Coded Allergies: No Known Allergies (Unverified , 09/29/18) Vital Signs Vital Signs Date Time Temp Pulse Resp B/P (MAP) Pulse Ox O2 Delivery O2 Flow Rate FiO2 03/18/21 05:50 98.5 57 18 138/64 (88) 90 Room Air Laboratory Data CBC/BMP Laboratory Tests 03/18/21 06:07 Labs 24H Laboratory Tests 2 03/18/21 06:07: Immature Granulocyte % (Auto) 0.4, Neutrophils (%) (Auto) 67.0H, Lymphocytes (%) (Auto) 16.3L, Monocytes (%) (Auto) 13.0H, Eosinophils (%) (Auto) 3.2H, Basophils (%) (Auto) 0.1, Neutrophils # (Auto) 5.0, Lymphocytes # (Auto) 1.2L, Monocytes # (Auto) 1.0H, Eosinophils # (Auto) 0.2, Basophils # (Auto) 0.0, Nucleated Red Blood Cells % (auto) 0.0, Anion Gap 4L, Glomerular Filtration Rate > 60.0, Calcium Level 8.8 Microbiology Microbiology 03/14/21 Urine Culture - Final, Complete Yeast Like Organism Enterococcus Faecalis Current Medications Current Medications Current Medications Medications (Trade) Dose Ordered Sig/Atiya Route PRN Reason Start Time Stop Time Status Last Admin Dose Admin Acetaminophen (Tylenol Tab) 650 mg Q4HP PRN PO fever/MILD PAIN (PS 1-4) 03/10/21 15:30 03/11/21 19:52 Albuterol/ Ipratropium (Combivent Respimat 100-20mcg) 1 puff RTID INH 03/12/21 20:00 03/18/21 07:11 Amitriptyline HCl (Elavil) 50 mg QHS PO 03/10/21 21:00 03/17/21 21:21 Amlodipine Besylate (Norvasc) 10 mg QHS PO 03/10/21 21:00 03/11/21 13:05 DC 03/10/21 20:34 Amlodipine Besylate (Norvasc) 10 mg QHS PO 03/13/21 21:00 03/17/21 21:21 Aspirin (Ecotrin) 81 mg DAILY PO 03/11/21 09:00 03/17/21 09:48 Baclofen (Lioresal) 5 mg BID PO 03/12/21 21:00 03/16/21 14:59 DC 03/16/21 08:58 Baclofen (Lioresal) 5 mg TID PO 03/16/21 16:00 03/17/21 21:22 Carbidopa/Levodopa (Sinemet 25/100) 2 tab BID PO 03/10/21 21:00 03/17/21 21:22 Clopidogrel Bisulfate (PLAVix) 75 mg DAILY PO 03/11/21 09:00 10/5/21 09:48 Dextrose/Sodium Chloride 1,000 ml @ 60 mls/hr [id number] IV 03/16/21 10:15 03/17/21 17:26 Dextrose/Water 1,000 ml @ 60 mls/hr [id number] IV 03/11/21 11:15 03/13/21 14:59 DC 03/13/21 12:25 Emollient Cream (Vanicream) apply to entire face af... BID TOP 03/12/21 09:00 03/17/21 21:23 EZETIMIBE (Zetia) 10 mg QHS PO 03/10/21 21:00 03/17/21 21:22 Finasteride (Proscar) 5 mg DAILY PO 03/11/21 09:00 03/17/21 09:48 Fluconazole (Diflucan Tablet) 200 mg DAILY PO 03/17/21 09:00 03/27/21 08:59 03/17/21 17:27 Guaifenesin (Robitussin Tab) 400 mg TID PO 03/12/21 16:00 03/17/21 21:21 Heparin Sodium (Porcine) (Heparin) 5,000 units Q12H SC 03/10/21 21:00 03/17/21 09:54 DC 03/17/21 09:47 Home Med (Home Med List Complete!) ASDIRECTED XX 03/17/21 15:20 03/17/21 15:27 DC Hydralazine HCl (Apresoline) 25 mg Q6H PRN PO sbp >140 03/13/21 14:50 03/17/21 09:52 DC Hydralazine HCl (Apresoline) 50 mg Q6H PO 03/17/21 12:00 03/18/21 05:47 Hydrocortisone (Hydrocortisone 1% Cream) apply to areas of plaques... BID TOP 03/12/21 09:00 03/17/21 21:23 Levofloxacin (Levaquin) 250 mg DAILY@06 PO 03/14/21 06:00 03/13/21 15:36 DC Levofloxacin (Levaquin) 750 mg Q48H PO 03/15/21 06:00 03/17/21 05:50 Lidocaine/ Diphenhydr/Alum/ Mg/Simeth (Magic Mouthwash) 5ML-use swab to rinse ... AC MT 03/10/21 17:30 03/17/21 17:27 Losartan Potassium (Cozaar) 12.5 mg DAILY PO 03/13/21 09:00 03/17/21 09:52 DC 03/17/21 09:50 Losartan Potassium (Cozaar) 25 mg DAILY PO 03/11/21 09:00 03/11/21 13:05 DC 03/11/21 09:04 Pantoprazole Sodium (Protonix) 40 mg DAILY PO 03/11/21 09:00 03/17/21 09:48 Polyethylene Glycol (Miralax) 1 pkt DAILY PO 03/16/21 09:00 03/17/21 09:47 Rosuvastatin Calcium (Crestor) 40 mg QHS PO 03/10/21 21:00 03/17/21 21:21 Senna/Docusate Sodium (Senokot S) 2 tab BID PO 03/10/21 21:00 03/17/21 21:20 Tamsulosin HCl (Flomax) 0.8 mg DAILY PO 03/11/21 09:00 03/13/21 22:56 DC 03/13/21 10:08 Triamcinolone Acetonide (Kenalog 0.1% Cream) apply to scalp DAILY TOP 03/17/21 09:00 JOAQUIN SARABIA MD Mar 18, 2021 09:16
[2021-03-18] MEDS: CLOPIDOGREL 75 MG TAB PO SCH (09:29)
[2021-03-18] MEDS: FLUCONAZOLE 100 MG TAB PO SCH (09:29)
[2021-03-18] MEDS: FINASTERIDE 5 MG TAB PO SCH (09:29)
[2021-03-18] MEDS: BACLOFEN 5MG PER 1/2 TABLET PO SCH ×3 (09:29→21:40)
[2021-03-18] MEDS: SINEMET 25-100 MG TAB PO SCH ×2 (09:29→21:41)
[2021-03-18] MEDS: ASPIRIN 81MG ENTERIC TABLET PO SCH (09:29)
[2021-03-18] MEDS: PANTOPRAZOLE 40MG TAB (PROTONIX) PO SCH (09:29)
[2021-03-18] MEDS: MIRALAX *UNIT DOSE* 17GM PACKET PO SCH (09:30)
[2021-03-18] MEDS: TRIAMCINOLONE ACET 0.1% CREAM 80 GM TOP SCH (09:30)
[2021-03-18] MEDS: guaiFENesin 200 MG TAB PO SCH ×3 (09:30→21:40)
[2021-03-18] MEDS: SENOKOT S TAB PO SCH ×2 (09:30→21:40)
[2021-03-18] MEDS: VANICREAM MOISTURIZING SKIN CREAM 113GM TUBE TOP SCH ×2 (09:54→21:43)
[2021-03-18] MEDS: MAGIC MOUTHWASH SUSPENSION BTL MT SCH ×3 (09:54→18:10)
[2021-03-18] MEDS: HYDROCORTISONE 1% CREAM 30 GM TOP SCH ×2 (09:54→21:43)
[2021-03-18] MEDS ORDERED: FUROSEMIDE 20MG/2ML VIAL (J1940) IV ONE (10:55)
[2021-03-18 14:00] VITALS: BP 143/67
--- NOTE | 2021-03-18 16:16 | CR ---
CONSULTATION DATE: 03/10/2021 HISTORY OF PRESENT ILLNESS: The patient is a 80-year-old male, who is presenting with hematuria and found to have urine culture positive for yeast-like organism. The patient is currently admitted to the acute rehab unit after being admitted to [facility] from March 06 through March 10 due to an acute cerebrovascular accident (CVA). The patient was noted on admission to [facility] for acute cerebrovascular accident (CVA) to be urinating independently. However, at one point during his admission, he was having urinary retention and required a Amos catheter. On admission to the acute rehab unit, he continued to require a Amos catheter. The Amos catheter was discontinued for a voiding trial, which he apparently failed. He then had a Amos catheter reinserted with some trauma. He was noted after this to have hematuria. During the overnight shift on 03/13/2021, the patient's Amos catheter was removed and a clot of blood was removed from the urethra. A Amos catheter could not be reinserted by the PA or resident physician on the overnight shift and urology was consulted. Dr. Arriaga was able to place an 18 [place] catheter and collected a urine sample for culture at that time. There was consideration that the hematuria was likely due to trauma and it seems that he has had some recurrence of hematuria since the catheter was placed on 03/13/21, typically when the catheter hemostasis been pulled on PAST MEDICAL HISTORY: 1. Hypertension. 2. Grade 1 diastolic dysfunction. 3. History of nicotine and alcohol abuse. 4. Anemia 5. Lumbar degenerative joint disease 6. BPH 7. Chronic depression anxiety 8. Impaired fasting glucose 9. Alcoholic fatty liver disease 10. 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 Pseudogout 13. Parkinson's disease 14. History of TIA in 07/01/2020, MRI for acute CVA but CTA head/neck severe narrowing vertebrals right greater than left moderate distal internal carotid narrowing as well PAST SURGICAL HISTORY: 1. Multiple colonoscopies. 2. Transforaminal lumbar interbody fusion. 3. L1-S1 posterior decompression with fusion T11-S1. 4. TURP 5. Multiple adhesion lysis surgeries 6. Abscess with small bowel resection SOCIAL HISTORY: Patient states that he does smoke about 4 to 5 cigarettes a day. Patient quit drinking alcohol few months ago. Patient denies any illicit drug use. Patient lives at home alone FAMILY HISTORY: Father passed at age 8585 years old with emphysema. Mother passed at 92 years old of Alzheimer's disease REVIEW OF SYSTEMS: General: Denies fevers,chills, change in weight HEENT: Denies headaches, vision change Cardiovascular: Denies chest pain, palpitations Respiratory: Denies shortness of breath, cough GI: Denies abdominal pain, nausea, vomiting, diarrhea : Per HPI Extremities: Denies swelling or pain in extremities Neurological: Denies numbness or tingling in legs PHYSICAL EXAMINATION: VITAL SIGNS: Temperature is 98.2 degrees Fahrenheit temporal, heart rate 58, respiratory rate 18, blood pressure 138/66, sats 96% on room air. GENERAL: Patient appears comfortable sitting up in a chair in no acute distress. HEENT: Head is traumatic. Moist mucous membranes. LUNGS: Clear to auscultation bilaterally. HEART: Regular rate and rhythm. Normal S1 and S2. ABDOMEN: Soft, nontender and nondistended. Bowel sounds are present. There is a Amos catheter in place in draining clear yellowish urine. EXTREMITIES: No edema. LABORATORY DATA: WBC 13.9, hemoglobin 11.1, hematocrit 35.2, platelet count 256,000. ASSESSMENT AND PLAN: A 80-year-old male who is currently admitted to acute rehab unit after acute ischemic stroke for rehabilitation who was found to have recurrent urinary retention requiring Amos catheter and urine culture positive for yeast-like organism. Will start on fluconazole for the Candiduria and will complete a 10 day course. Would recommend discontinuation of Amos catheter as soon as possible when urinary retention resolves to prevent further infection and trauma. SERENA
[2021-03-18 20:00] VITALS: BP 135/72
[2021-03-18] MEDS: AMITRIPTYLINE 50 MG TAB PO SCH (21:40)
[2021-03-18] MEDS: EZETIMIBE 10MG TABLET (ZETIA) PO SCH (21:41)
[2021-03-18] MEDS: ROSUVASTATIN 10 MG TAB (CRESTOR) PO SCH (21:41)
--- NOTE | 2021-03-18 22:54 | IPNPDOC ---
Text Note Date of Service Significant event NOTE Pt refusing to d/c beckham tonight despite education for voiding trial and residential risk of indwelling beckham. Pt describes fear of straight cath d/t fear of re-insertion as he had some recent trauma with straight cath. He doesn't want to have beckham out to then have to have it put back in. Would benefit from urology feedback on residential beckham goals of care and further education/encourage on voiding trial. VS,Fishbone, I+O VS, Fishbone, I+O Laboratory Tests 03/18/21 06:07 Vital Signs Date Time Temp Pulse Resp B/P (MAP) Pulse Ox O2 Delivery O2 Flow Rate FiO2 03/18/21 21:41 84 135/72 03/18/21 20:00 99.0 19 94 Room Air I&O- Last 24 Hours up to 6 AM 03/18/21 05:59 Intake Total 680 ml Output Total 1400 ml Balance -720 ml JOSE FRANCISCO MARTINO NP Mar 18, 2021 22:54
[2021-03-19] MEDS: REMEDY PHYTOPLEX Z-GUARD PASTE 113GM TUBE (FROM STOREROOM PRODUCT) TOP SCH ×4 (03:30→20:27)
[2021-03-19 05:17] VITALS: BP 104/60
[2021-03-19] MEDS: LevoFLOXacin 750 MG TABLET PO SCH (05:26)
[2021-03-19] MEDS: **hydrALAZINE** 50 MG TAB PO SCH ×4 (05:26→18:03)
[2021-03-19] MEDS: MAGIC MOUTHWASH SUSPENSION BTL MT SCH ×3 (07:50→16:45)
[2021-03-19] MEDS: COMBIVENT RESPIMAT 100-20MCG INHALER 4GM INH SCH ×3 (08:00→19:19)
[2021-03-19] MEDS: MIRALAX *UNIT DOSE* 17GM PACKET PO SCH (09:22)
[2021-03-19] MEDS: BACLOFEN 5MG PER 1/2 TABLET PO SCH ×3 (09:22→20:26)
[2021-03-19] MEDS: FINASTERIDE 5 MG TAB PO SCH (09:22)
[2021-03-19] MEDS: guaiFENesin 200 MG TAB PO SCH ×3 (09:23→20:25)
[2021-03-19] MEDS: SENOKOT S TAB PO SCH ×2 (09:23→20:25)
[2021-03-19] MEDS: FLUCONAZOLE 100 MG TAB PO SCH (09:23)
[2021-03-19] MEDS: CLOPIDOGREL 75 MG TAB PO SCH (09:23)
[2021-03-19] MEDS: TRIAMCINOLONE ACET 0.1% CREAM 80 GM TOP SCH (09:24)
[2021-03-19] MEDS: SINEMET 25-100 MG TAB PO SCH ×2 (09:24→20:26)
[2021-03-19] MEDS: HYDROCORTISONE 1% CREAM 30 GM TOP SCH ×2 (09:24→20:27)
[2021-03-19] MEDS: ASPIRIN 81MG ENTERIC TABLET PO SCH (09:25)
[2021-03-19] MEDS: PANTOPRAZOLE 40MG TAB (PROTONIX) PO SCH (09:25)
[2021-03-19] MEDS: VANICREAM MOISTURIZING SKIN CREAM 113GM TUBE TOP SCH ×2 (09:25→20:27)
[2021-03-19 14:00] VITALS: BP 144/75
[2021-03-19 20:00] VITALS: BP 108/48
[2021-03-19] MEDS: EZETIMIBE 10MG TABLET (ZETIA) PO SCH (20:25)
[2021-03-19] MEDS: AMITRIPTYLINE 50 MG TAB PO SCH (20:25)
[2021-03-19] MEDS: ROSUVASTATIN 10 MG TAB (CRESTOR) PO SCH (20:25)
[2021-03-20] MEDS: REMEDY PHYTOPLEX Z-GUARD PASTE 113GM TUBE (FROM STOREROOM PRODUCT) TOP SCH ×4 (03:30→20:39)
[2021-03-20 06:19] VITALS: BP 150/64
[2021-03-20] MEDS: **hydrALAZINE** 50 MG TAB PO SCH ×5 (06:22→23:04)
[2021-03-20] MEDS: COMBIVENT RESPIMAT 100-20MCG INHALER 4GM INH SCH ×3 (07:17→18:41)
[2021-03-20 07:18] LABS: BASO % 0.4 % (0.0-1.0); EOS # 0.2 10^3/uL (0.0-0.5); EOS % 2.8 % (0.0-3.0); HEMATOCRIT 35.2 % (42.0-52.0); HEMOGLOBIN 11.1 g/dl (13.5-17.5); LYMPH # 1.2 10^3/uL (1.5-5.0); LYMPH % 15.5 % (24.0-44.0); MEAN CORPUSCULAR HEMOGLOBIN 31.4 pg (27.0-33.0); MEAN CORPUSCULAR HGB CONC 31.5 g/dl (32.0-36.5); MEAN CORPUSCULAR VOLUME 99.7 fl (80.0-96.0); MONO % 13.1 % (2.0-8.0); NEUTROPHILS # 5.4 10^3/uL (1.5-8.5); NEUTROPHILS % 67.9 % (36.0-66.0); PLATELET COUNT, AUTOMATED 256 10^3/uL (150-450); RED BLOOD COUNT 3.53 10^6/uL (4.30-6.10); WHITE BLOOD COUNT 7.9 10^3/uL (4.0-10.0)
[2021-03-20] MEDS: MAGIC MOUTHWASH SUSPENSION BTL MT SCH ×3 (07:30→17:30)
[2021-03-20 07:44] LABS: BLOOD UREA NITROGEN 18 MG/DL (7-18); CALCIUM LEVEL 9.2 MG/DL (8.8-10.2); CARBON DIOXIDE LEVEL 27 MEQ/L (21-32); CHLORIDE LEVEL 106 MEQ/L (98-107); CREATININE FOR GFR 1.23 MG/DL (0.70-1.30); GLOMERULAR FILTRATION RATE > 60.0 (>42); GLUCOSE, FASTING 97 MG/DL (70-100); POTASSIUM SERUM 4.4 MEQ/L (3.5-5.1); SODIUM LEVEL 139 MEQ/L (136-145)
[2021-03-20] MEDS: PANTOPRAZOLE 40MG TAB (PROTONIX) PO SCH (09:35)
[2021-03-20] MEDS: guaiFENesin 200 MG TAB PO SCH ×3 (09:35→20:38)
[2021-03-20] MEDS: SENOKOT S TAB PO SCH ×2 (09:35→20:37)
[2021-03-20] MEDS: FLUCONAZOLE 100 MG TAB PO SCH (09:35)
[2021-03-20] MEDS: ASPIRIN 81MG ENTERIC TABLET PO SCH (09:36)
[2021-03-20] MEDS: MIRALAX *UNIT DOSE* 17GM PACKET PO SCH (09:36)
[2021-03-20] MEDS: BACLOFEN 5MG PER 1/2 TABLET PO SCH ×3 (09:36→20:38)
[2021-03-20] MEDS: CLOPIDOGREL 75 MG TAB PO SCH (09:36)
[2021-03-20] MEDS: VANICREAM MOISTURIZING SKIN CREAM 113GM TUBE TOP SCH ×2 (09:36→20:40)
[2021-03-20] MEDS: SINEMET 25-100 MG TAB PO SCH ×2 (09:36→20:38)
[2021-03-20] MEDS: FINASTERIDE 5 MG TAB PO SCH (09:36)
[2021-03-20] MEDS: TRIAMCINOLONE ACET 0.1% CREAM 80 GM TOP SCH (09:37)
[2021-03-20] MEDS: HYDROCORTISONE 1% CREAM 30 GM TOP SCH ×2 (09:37→20:40)
[2021-03-20] MEDS: ACETAMINOPHEN TAB 650MG DOSE (2X325MG) PO PRN (11:51)
[2021-03-20 13:51] VITALS: BP 138/66
[2021-03-20 20:00] VITALS: BP 102/60
[2021-03-20] MEDS: AMITRIPTYLINE 50 MG TAB PO SCH (20:38)
[2021-03-20] MEDS: EZETIMIBE 10MG TABLET (ZETIA) PO SCH (20:38)
[2021-03-20] MEDS: ROSUVASTATIN 10 MG TAB (CRESTOR) PO SCH (20:39)
[2021-03-21] MEDS: REMEDY PHYTOPLEX Z-GUARD PASTE 113GM TUBE (FROM STOREROOM PRODUCT) TOP SCH ×4 (03:30→21:34)
[2021-03-21] MEDS: **hydrALAZINE** 50 MG TAB PO SCH ×4 (05:05→23:56)
[2021-03-21] MEDS: LevoFLOXacin 750 MG TABLET PO SCH (05:06)
[2021-03-21 06:00] VITALS: BP 120/60
[2021-03-21] MEDS: MAGIC MOUTHWASH SUSPENSION BTL MT SCH ×3 (07:30→17:30)
[2021-03-21] MEDS: COMBIVENT RESPIMAT 100-20MCG INHALER 4GM INH SCH ×3 (07:43→20:48)
[2021-03-21] MEDS: FINASTERIDE 5 MG TAB PO SCH (09:11)
[2021-03-21] MEDS: MIRALAX *UNIT DOSE* 17GM PACKET PO SCH (09:11)
[2021-03-21] MEDS: PANTOPRAZOLE 40MG TAB (PROTONIX) PO SCH (09:11)
[2021-03-21] MEDS: guaiFENesin 200 MG TAB PO SCH ×3 (09:12→21:02)
[2021-03-21] MEDS: SINEMET 25-100 MG TAB PO SCH ×2 (09:12→21:03)
[2021-03-21] MEDS: ASPIRIN 81MG ENTERIC TABLET PO SCH (09:12)
[2021-03-21] MEDS: SENOKOT S TAB PO SCH ×2 (09:12→21:00)
[2021-03-21] MEDS: BACLOFEN 5MG PER 1/2 TABLET PO SCH ×3 (09:13→21:02)
[2021-03-21] MEDS: CLOPIDOGREL 75 MG TAB PO SCH (09:13)
[2021-03-21] MEDS: FLUCONAZOLE 100 MG TAB PO SCH (09:13)
[2021-03-21] MEDS: TRIAMCINOLONE ACET 0.1% CREAM 80 GM TOP SCH (09:22)
[2021-03-21] MEDS: VANICREAM MOISTURIZING SKIN CREAM 113GM TUBE TOP SCH ×2 (09:22→21:05)
[2021-03-21] MEDS: HYDROCORTISONE 1% CREAM 30 GM TOP SCH ×2 (09:22→21:04)
[2021-03-21 14:00] VITALS: BP 128/70
[2021-03-21 20:00] VITALS: BP 126/62
[2021-03-21] MEDS: EZETIMIBE 10MG TABLET (ZETIA) PO SCH (21:02)
[2021-03-21] MEDS: ROSUVASTATIN 10 MG TAB (CRESTOR) PO SCH (21:02)
[2021-03-21] MEDS: AMITRIPTYLINE 50 MG TAB PO SCH (21:03)
[2021-03-22] MEDS: REMEDY PHYTOPLEX Z-GUARD PASTE 113GM TUBE (FROM STOREROOM PRODUCT) TOP SCH ×4 (03:30→21:40)
[2021-03-22] MEDS: **hydrALAZINE** 50 MG TAB PO SCH ×3 (05:38→17:23)
[2021-03-22 06:55] VITALS: BP 145/69
[2021-03-22] MEDS: MAGIC MOUTHWASH SUSPENSION BTL MT SCH ×3 (07:30→16:56)
[2021-03-22] MEDS: COMBIVENT RESPIMAT 100-20MCG INHALER 4GM INH SCH ×3 (07:30→20:15)
[2021-03-22] MEDS: SINEMET 25-100 MG TAB PO SCH ×2 (08:20→21:37)
[2021-03-22] MEDS: BACLOFEN 5MG PER 1/2 TABLET PO SCH ×3 (08:20→21:38)
[2021-03-22] MEDS: CLOPIDOGREL 75 MG TAB PO SCH (08:20)
[2021-03-22] MEDS: FLUCONAZOLE 100 MG TAB PO SCH (08:20)
[2021-03-22] MEDS: FINASTERIDE 5 MG TAB PO SCH (08:20)
[2021-03-22] MEDS: ASPIRIN 81MG ENTERIC TABLET PO SCH (08:20)
[2021-03-22] MEDS: PANTOPRAZOLE 40MG TAB (PROTONIX) PO SCH (08:20)
[2021-03-22] MEDS: guaiFENesin 200 MG TAB PO SCH ×3 (08:21→21:37)
[2021-03-22] MEDS: SENOKOT S TAB PO SCH ×2 (08:21→21:00)
[2021-03-22] MEDS: MIRALAX *UNIT DOSE* 17GM PACKET PO SCH (08:21)
[2021-03-22] MEDS: ACETAMINOPHEN TAB 650MG DOSE (2X325MG) PO PRN (08:22)
[2021-03-22] MEDS: VANICREAM MOISTURIZING SKIN CREAM 113GM TUBE TOP SCH ×2 (08:23→21:40)
[2021-03-22] MEDS: TRIAMCINOLONE ACET 0.1% CREAM 80 GM TOP SCH (08:23)
[2021-03-22] MEDS: HYDROCORTISONE 1% CREAM 30 GM TOP SCH ×2 (08:23→21:41)
[2021-03-22 14:00] VITALS: BP 130/64
[2021-03-22] MEDS: AMITRIPTYLINE 50 MG TAB PO SCH (21:38)
[2021-03-22] MEDS: ROSUVASTATIN 10 MG TAB (CRESTOR) PO SCH (21:38)
[2021-03-22] MEDS: EZETIMIBE 10MG TABLET (ZETIA) PO SCH (21:38)
[2021-03-22 22:01] VITALS: BP 180/80
[2021-03-23] MEDS: **hydrALAZINE** 50 MG TAB PO SCH ×5 (00:29→23:49)
[2021-03-23] MEDS: REMEDY PHYTOPLEX Z-GUARD PASTE 113GM TUBE (FROM STOREROOM PRODUCT) TOP SCH ×4 (03:30→21:08)
--- NOTE | 2021-03-23 06:24 | IPN ---
INFECTIOUS DISEASE PROGRESS NOTE DATE: 03/20/2021 SUBJECTIVE: The patient is seen and examined this morning at bedside. He is sitting up in a chair. He continues to have some difficulty with his speech. He is concerned about removing the Amos catheter as he has had trauma with reinserting the catheter in the past. He also states that prior to hospitalization he was having issues with incontinence that he found very embarrassing. He is wondering about keeping the catheter in long-term. He has not had any recurrence of his hematuria. OBJECTIVE: VITAL SIGNS: Temperature is 98.2 degrees Fahrenheit temporal, heart rate 58, respiratory rate 18, blood pressure 138/66, sats 96% on room air. GENERAL: Patient appears comfortable sitting up in a chair in no acute distress. HEENT: Head is traumatic. Moist mucous membranes. LUNGS: Clear to auscultation bilaterally. HEART: Regular rate and rhythm. Normal S1 and S2. ABDOMEN: Soft, nontender and nondistended. Bowel sounds are present. There is a Amos catheter in place in draining clear yellowish urine. EXTREMITIES: No edema. LABORATORY DATA: WBC 13.9, hemoglobin 11.1, hematocrit 35.2, platelet count 256,000. ASSESSMENT AND PLAN: A 80-year-old male who is currently admitted to acute rehab unit after acute ischemic stroke for rehabilitation who was found to have recurrent urinary retention requiring Amos catheter and urine culture positive for yeast-like organism. Since his initial evaluation, his urine has also growth enterococcus faecalis greater than 100,000 CFU per ml. He is continued on fluconazole for the Candiduria and will complete a 10 day course. SERENA
[2021-03-23 06:31] VITALS: BP 140/80
[2021-03-23] MEDS: COMBIVENT RESPIMAT 100-20MCG INHALER 4GM INH SCH ×3 (08:00→19:15)
[2021-03-23] MEDS: MIRALAX *UNIT DOSE* 17GM PACKET PO SCH (09:00)
[2021-03-23] MEDS: SENOKOT S TAB PO SCH ×2 (09:00→21:05)
[2021-03-23] MEDS: guaiFENesin 200 MG TAB PO SCH ×3 (09:50→21:05)
[2021-03-23] MEDS: ASPIRIN 81MG ENTERIC TABLET PO SCH (09:50)
[2021-03-23] MEDS: BACLOFEN 5MG PER 1/2 TABLET PO SCH ×3 (09:50→21:05)
[2021-03-23] MEDS: SINEMET 25-100 MG TAB PO SCH ×2 (09:50→21:05)
[2021-03-23] MEDS: CLOPIDOGREL 75 MG TAB PO SCH (09:50)
[2021-03-23] MEDS: FINASTERIDE 5 MG TAB PO SCH (09:51)
[2021-03-23] MEDS: MAGIC MOUTHWASH SUSPENSION BTL MT SCH ×3 (09:51→18:04)
[2021-03-23] MEDS: ACETAMINOPHEN TAB 650MG DOSE (2X325MG) PO PRN ×2 (09:51→21:07)
[2021-03-23] MEDS: PANTOPRAZOLE 40MG TAB (PROTONIX) PO SCH (09:51)
[2021-03-23] MEDS: FLUCONAZOLE 100 MG TAB PO SCH (09:51)
[2021-03-23] MEDS: VANICREAM MOISTURIZING SKIN CREAM 113GM TUBE TOP SCH ×2 (09:53→21:08)
[2021-03-23] MEDS: HYDROCORTISONE 1% CREAM 30 GM TOP SCH ×2 (09:53→21:07)
[2021-03-23] MEDS: TRIAMCINOLONE ACET 0.1% CREAM 80 GM TOP SCH (09:53)
[2021-03-23 10:48] LABS: BASO % 0.3 % (0.0-1.0); EOS # 0.1 10^3/uL (0.0-0.5); EOS % 1.2 % (0.0-3.0); HEMATOCRIT 38.7 % (42.0-52.0); HEMOGLOBIN 12.2 g/dl (13.5-17.5); LYMPH # 0.6 10^3/uL (1.5-5.0); LYMPH % 6.4 % (24.0-44.0); MEAN CORPUSCULAR HGB CONC 31.5 g/dl (32.0-36.5); MEAN CORPUSCULAR VOLUME 98.2 fl (80.0-96.0); MONO # 1.1 10^3/uL (0.0-0.8); MONO % 11.4 % (2.0-8.0); NEUTROPHILS # 7.9 10^3/uL (1.5-8.5); NEUTROPHILS % 80.4 % (36.0-66.0); PLATELET COUNT, AUTOMATED 320 10^3/uL (150-450); RED BLOOD COUNT 3.94 10^6/uL (4.30-6.10); WHITE BLOOD COUNT 9.8 10^3/uL (4.0-10.0)
[2021-03-23 11:15] LABS: BLOOD UREA NITROGEN 21 MG/DL (7-18); CALCIUM LEVEL 9.5 MG/DL (8.8-10.2); CARBON DIOXIDE LEVEL 27 MEQ/L (21-32); CHLORIDE LEVEL 104 MEQ/L (98-107); CREATININE FOR GFR 1.23 MG/DL (0.70-1.30); GLOMERULAR FILTRATION RATE > 60.0 (>42); GLUCOSE, FASTING 113 MG/DL (70-100); POTASSIUM SERUM 4.4 MEQ/L (3.5-5.1); SODIUM LEVEL 137 MEQ/L (136-145)
[2021-03-23 14:00] VITALS: BP 116/64
[2021-03-23] MEDS: AMITRIPTYLINE 50 MG TAB PO SCH (21:06)
[2021-03-23] MEDS: EZETIMIBE 10MG TABLET (ZETIA) PO SCH (21:06)
[2021-03-23] MEDS: ROSUVASTATIN 10 MG TAB (CRESTOR) PO SCH (21:06)
[2021-03-23 22:07] VITALS: BP 132/70
[2021-03-24] MEDS: REMEDY PHYTOPLEX Z-GUARD PASTE 113GM TUBE (FROM STOREROOM PRODUCT) TOP SCH ×4 (05:24→21:12)
[2021-03-24] MEDS: **hydrALAZINE** 50 MG TAB PO SCH ×3 (05:26→17:57)
[2021-03-24 06:27] VITALS: BP 122/60
[2021-03-24] MEDS: COMBIVENT RESPIMAT 100-20MCG INHALER 4GM INH SCH ×3 (07:34→19:28)
[2021-03-24] MEDS: BACLOFEN 5MG PER 1/2 TABLET PO SCH ×3 (09:07→21:09)
[2021-03-24] MEDS: PANTOPRAZOLE 40MG TAB (PROTONIX) PO SCH (09:07)
[2021-03-24] MEDS: ASPIRIN 81MG ENTERIC TABLET PO SCH (09:07)
[2021-03-24] MEDS: SINEMET 25-100 MG TAB PO SCH ×2 (09:07→21:09)
[2021-03-24] MEDS: guaiFENesin 200 MG TAB PO SCH ×3 (09:08→21:08)
[2021-03-24] MEDS: SENOKOT S TAB PO SCH ×2 (09:08→21:09)
[2021-03-24] MEDS: CLOPIDOGREL 75 MG TAB PO SCH (09:08)
[2021-03-24] MEDS: FINASTERIDE 5 MG TAB PO SCH (09:08)
[2021-03-24] MEDS: MIRALAX *UNIT DOSE* 17GM PACKET PO SCH (09:08)
[2021-03-24] MEDS: FLUCONAZOLE 100 MG TAB PO SCH (09:08)
[2021-03-24] MEDS: VANICREAM MOISTURIZING SKIN CREAM 113GM TUBE TOP SCH ×2 (09:09→21:11)
[2021-03-24] MEDS: HYDROCORTISONE 1% CREAM 30 GM TOP SCH ×2 (09:09→21:12)
[2021-03-24] MEDS: MAGIC MOUTHWASH SUSPENSION BTL MT SCH ×3 (09:09→16:29)
[2021-03-24] MEDS: TRIAMCINOLONE ACET 0.1% CREAM 80 GM TOP SCH (09:10)
[2021-03-24 09:43] LABS: BASO % 0.4 % (0.0-1.0); EOS # 0.1 10^3/uL (0.0-0.5); EOS % 1.6 % (0.0-3.0); HEMATOCRIT 35.3 % (42.0-52.0); HEMOGLOBIN 11.3 g/dl (13.5-17.5); LYMPH % 12.3 % (24.0-44.0); MEAN CORPUSCULAR HEMOGLOBIN 31.9 pg (27.0-33.0); MEAN CORPUSCULAR VOLUME 99.7 fl (80.0-96.0); NEUTROPHILS # 5.8 10^3/uL (1.5-8.5); NEUTROPHILS % 73.1 % (36.0-66.0); PLATELET COUNT, AUTOMATED 309 10^3/uL (150-450); RED BLOOD COUNT 3.54 10^6/uL (4.30-6.10)
--- NOTE | 2021-03-24 10:57 | IPNPDOC ---
PM&R Progress Note DATE OF SERVICE: Mar 23, 2021 Tumbler Dyeing Machine Operator Progress Note Subjective: Patient seen in his room and noted to have hematuria. He denies having any pain or light headedness and was able to participate in therapy. REVIEW OF SYSTEMS: The following is a completed review of systems and has been reviewed. Review of systems otherwise unremarkable. PAIN: Patient self reports no pain EYES: No recent vision changes EARS, NOSE, & THROAT: + dysphagia, +[place] CARDIOVASCULAR: Denies chest pain or palpitations PULMONARY: Denies shortness of breath GASTROINTESTINAL: Denies constipation/diarrhea GENITOURINARY: denies dysuria MUSCULOSKELETAL: left sided paresis NEUROLOGICAL:+ left sided paresis and parkinsons, +dysarthric HEMATOLOGICAL: denies easy bruising SKIN:+ facial rash PSYCHIATRIC: Unremarkable All other review of systems found to be negative. PHYSICAL EXAMINATION: VITAL SIGNS: Please see below. GENERAL: Pleasant and cooperative. No acute distress. HEENT: PERRL. Extraocular movements intact. Clear conjunctiva, +left facial droop CARDIOVASCULAR: Regular rate and rhythm. No murmurs, rubs, or gallops LUNGS:CTA, No wheezes. No rhonchi ABDOMEN: Soft, nontender, nondistended. Positive bowel sounds. Normal active bowel sounds NEUROLOGICAL: Alert and oriented times three. Cranial nerves II through XII grossly intact. Sensation grossly intact, +dysarthria LUE wrist elbow and wrist flexion tone EXTREMITIES: 5/5 RUE, 3+/5 LUE 5\5 strength right lower extremity. 5-/5 strength in left lower extremity. SKIN: + silver plaque lesions on face LABORATORY DATA: Please see below. ASSESSMENT:80-year-old M with past medical history of HTN, parkinsons, TIA and CVA who presents status post right external capsule/pillai radiata lacunar stroke PLAN: 1. Rehab- PT/OT advance mobility and ADLs, strengthen/stretch/maintain ROM all 4limbs -GRIEV[employer] APPEALS SPECIALIST- dysphagia due to stroke and possibly parkinsons- initially admitted on puree and nectar (downgraded to pudding thickened)- upgraded to honey-thickened liquids 2. Neuro- hx of TIA and CVA with new right external capsule/pillai radiata lacunar infarct with CTA showing severe right vertebral artery stenosis cont ASA, plavix and statin -03-11-21 repeat CTH showing no new hemorrhage, MRI brain showing new right basal ganglia ischemic infarct- case discussed with Dr. Bell who, recs appreciated, s/p permissive HTN -patient reassessed by [employer]EV[employer] APPEALS SPECIALIST and safe for pudding thickened liquids- cont gentle hydration given poor po intake -hx of parkinsons cont sinemet -LUE and IGNACIO tone started on baclofen 3. Cardiac- hx of HTn- cont BP meds -HLD cont statin, zetia -chronic diastolic CHF, poor po intake at this time, s/p IVF, lungs CTA 4. Resp- aspiration precautions, oral care, monitor for infection -CT chest ordered to r/o infiltrate on 03-11-21 which was negative, given new stroke and worsening dysphagia with reported non-productive cough on 03-12-21, with f/u CXR showing new right lung base linear density, patient still with no leukocytosis or fever but given high risk for aspiration and mild new cough started on Levaquin, cont to monitor vitals and labs -combivent and guaifenesin ordered 5. - cont proscar and flomax for BPH, beckham placed Tuesday overnight due to frequent ICs in setting of retention with hematuria- urology assisted and recommended bladder irrigation- heparin d/c'd- 03-23-21 episdoe of hematuria with clotting, patient's vitals stable, asked nursing to resume bladder irrigation, will cont to monitor Hgb/Hct -Ucx + for yeast >100k and E faecalis- Dr. Bran consulted and patient started on fluconazole, patient already on levaquin for PNA which covers E faecalis 6. Pain- tylenol prn 7. DVT ppx- heparin d/c'd due to hematuria- on ASa and plavix 8. GI ppx- protonix 9. Skin- turn q2, zinc oxide to sacrum 10. Psych- cont elavil 11. Derm- facial psoriasis cont steroid cream- improving 12. Dispo- tbd Allergies Coded Allergies: No Known Allergies (Unverified , 09/29/18) Vital Signs Vital Signs Date Time Temp Pulse Resp B/P (MAP) Pulse Ox O2 Delivery O2 Flow Rate FiO2 03/24/21 06:27 97.3 79 18 122/60 (80) 94 Room Air Laboratory Data CBC/BMP Laboratory Tests 03/24/21 09:02 Labs 24H Laboratory Tests 2 03/24/21 09:02: Immature Granulocyte % (Auto) 0.6, Neutrophils (%) (Auto) 73.1H, Lymphocytes (%) (Auto) 12.3L, Monocytes (%) (Auto) 12.0H, Eosinophils (%) (Auto) 1.6, Basophils (%) (Auto) 0.4, Neutrophils # (Auto) 5.8, Lymphocytes # (Auto) 1.0L, Monocytes # (Auto) 1.0H, Eosinophils # (Auto) 0.1, Basophils # (Auto) 0.0, Nucleated Red Blood Cells % (auto) 0.0 Microbiology Microbiology 03/14/21 Urine Culture - Final, Complete Yeast Like Organism Enterococcus Faecalis Current Medications Current Medications Current Medications Medications (Trade) Dose Ordered Sig/Atiya Route PRN Reason Start Time Stop Time Status Last Admin Dose Admin Acetaminophen (Tylenol Tab) 650 mg Q4HP PRN PO fever/MILD PAIN (PS 1-4) 03/10/21 15:30 03/23/21 21:07 Albuterol/ Ipratropium (Combivent Respimat 100-20mcg) 1 puff RTID INH 03/12/21 20:00 03/23/21 19:15 Amitriptyline HCl (Elavil) 50 mg QHS PO 03/10/21 21:00 03/23/21 21:06 Amlodipine Besylate (Norvasc) 10 mg QHS PO 03/10/21 21:00 03/11/21 13:05 DC 03/10/21 20:34 Amlodipine Besylate (Norvasc) 10 mg QHS PO 03/13/21 21:00 03/23/21 21:06 Aspirin (Ecotrin) 81 mg DAILY PO 03/11/21 09:00 03/24/21 09:07 Baclofen (Lioresal) 5 mg BID PO 03/12/21 21:00 03/16/21 14:59 DC 03/16/21 08:58 Baclofen (Lioresal) 5 mg TID PO 03/16/21 16:00 03/24/21 09:07 Carbidopa/Levodopa (Sinemet 25/100) 2 tab BID PO 03/10/21 21:00 03/24/21 09:07 Clopidogrel Bisulfate (PLAVix) 75 mg DAILY PO 03/11/21 09:00 03/24/21 09:08 Dextrose/Sodium Chloride 1,000 ml @ 60 mls/hr [id number] IV 03/16/21 10:15 03/18/21 10:54 DC 03/17/21 17:26 Dextrose/Water 1,000 ml @ 60 mls/hr [id number] IV 03/11/21 11:15 03/13/21 14:59 DC 03/13/21 12:25 Emollient Cream (Vanicream) apply to entire face af... BID TOP 03/12/21 09:00 03/24/21 09:09 EZETIMIBE (Zetia) 10 mg QHS PO 03/10/21 21:00 03/23/21 21:06 Finasteride (Proscar) 5 mg DAILY PO 03/11/21 09:00 03/24/21 09:08 Fluconazole (Diflucan Tablet) 200 mg DAILY PO 03/17/21 09:00 03/27/21 08:59 03/24/21 09:08 Guaifenesin (Robitussin Tab) 400 mg TID PO 03/12/21 16:00 03/24/21 09:08 Heparin Sodium (Porcine) (Heparin) 5,000 units Q12H SC 03/10/21 21:00 03/17/21 09:54 DC 03/17/21 09:47 Home Med (Home Med List Complete!) ASDIRECTED XX 03/17/21 15:20 03/17/21 15:27 DC Hydralazine HCl (Apresoline) 25 mg Q6H PRN PO sbp >140 03/13/21 14:50 03/17/21 09:52 DC Hydralazine HCl (Apresoline) 50 mg Q6H PO 03/17/21 12:00 03/24/21 05:26 Hydrocortisone (Hydrocortisone 1% Cream) apply to areas of plaques... BID TOP 03/12/21 09:00 03/24/21 09:09 Levofloxacin (Levaquin) 250 mg DAILY@06 PO 03/14/21 06:00 03/13/21 15:36 DC Levofloxacin (Levaquin) 750 mg Q48H PO 03/15/21 06:00 03/21/21 16:12 DC 03/21/21 05:06 Lidocaine/ Diphenhydr/Alum/ Mg/Simeth (Magic Mouthwash) 5ML-use swab to rinse ... AC MT 03/10/21 17:30 03/24/21 09:09 Losartan Potassium (Cozaar) 12.5 mg DAILY PO 03/13/21 09:00 03/17/21 09:52 DC 03/17/21 09:50 Losartan Potassium (Cozaar) 25 mg DAILY PO 03/11/21 09:00 03/11/21 13:05 DC 03/11/21 09:04 Pantoprazole Sodium (Protonix) 40 mg DAILY PO 03/11/21 09:00 03/24/21 09:07 Polyethylene Glycol (Miralax) 1 pkt DAILY PO 03/16/21 09:00 03/24/21 09:08 Rosuvastatin Calcium (Crestor) 40 mg QHS PO 03/10/21 21:00 03/23/21 21:06 Senna/Docusate Sodium (Senokot S) 2 tab BID PO 03/10/21 21:00 03/24/21 09:08 Tamsulosin HCl (Flomax) 0.8 mg DAILY PO 03/11/21 09:00 03/13/21 22:56 DC 03/13/21 10:08 Triamcinolone Acetonide (Kenalog 0.1% Cream) apply to scalp DAILY TOP 03/17/21 09:00 03/24/21 09:10 JOAQUIN SARABIA MD Mar 24, 2021 10:57
[2021-03-24] MEDS: QUEtiapine FUMARATE 12.5 MG HALF-TAB PO SCH (11:42)
[2021-03-24 14:00] VITALS: BP 122/57
[2021-03-24 20:00] VITALS: BP 128/60
[2021-03-24] MEDS: EZETIMIBE 10MG TABLET (ZETIA) PO SCH (21:08)
[2021-03-24] MEDS: AMITRIPTYLINE 50 MG TAB PO SCH (21:08)
[2021-03-24] MEDS: ROSUVASTATIN 10 MG TAB (CRESTOR) PO SCH (21:09)
[2021-03-25] MEDS: **hydrALAZINE** 50 MG TAB PO SCH ×4 (05:31→18:08)
[2021-03-25] MEDS: REMEDY PHYTOPLEX Z-GUARD PASTE 113GM TUBE (FROM STOREROOM PRODUCT) TOP SCH ×4 (05:32→20:31)
[2021-03-25 05:53] VITALS: BP 130/60
[2021-03-25] MEDS: FINASTERIDE 5 MG TAB PO SCH (07:32)
[2021-03-25] MEDS: QUEtiapine FUMARATE 12.5 MG HALF-TAB PO SCH (07:32)
[2021-03-25] MEDS: FLUCONAZOLE 100 MG TAB PO SCH (07:32)
[2021-03-25] MEDS: BACLOFEN 5MG PER 1/2 TABLET PO SCH ×3 (07:32→20:29)
[2021-03-25] MEDS: ASPIRIN 81MG ENTERIC TABLET PO SCH (07:32)
[2021-03-25] MEDS: guaiFENesin 200 MG TAB PO SCH ×3 (07:33→20:31)
[2021-03-25] MEDS: SINEMET 25-100 MG TAB PO SCH ×2 (07:33→20:29)
[2021-03-25] MEDS: MIRALAX *UNIT DOSE* 17GM PACKET PO SCH (07:33)
[2021-03-25] MEDS: SENOKOT S TAB PO SCH ×2 (07:33→20:31)
[2021-03-25] MEDS: CLOPIDOGREL 75 MG TAB PO SCH (07:33)
[2021-03-25] MEDS: PANTOPRAZOLE 40MG TAB (PROTONIX) PO SCH (07:33)
[2021-03-25] MEDS: HYDROCORTISONE 1% CREAM 30 GM TOP SCH ×2 (07:51→20:30)
[2021-03-25] MEDS: TRIAMCINOLONE ACET 0.1% CREAM 80 GM TOP SCH (07:51)
[2021-03-25] MEDS: VANICREAM MOISTURIZING SKIN CREAM 113GM TUBE TOP SCH ×2 (07:51→20:31)
[2021-03-25] MEDS: MAGIC MOUTHWASH SUSPENSION BTL MT SCH ×3 (07:59→18:08)
[2021-03-25 08:30] LABS: BASO % 0.2 % (0.0-1.0); EOS # 0.2 10^3/uL (0.0-0.5); EOS % 2.1 % (0.0-3.0); HEMATOCRIT 33.4 % (42.0-52.0); HEMOGLOBIN 10.6 g/dl (13.5-17.5); LYMPH % 12.2 % (24.0-44.0); MEAN CORPUSCULAR HEMOGLOBIN 31.8 pg (27.0-33.0); MEAN CORPUSCULAR HGB CONC 31.7 g/dl (32.0-36.5); MEAN CORPUSCULAR VOLUME 100.3 fl (80.0-96.0); MONO % 11.5 % (2.0-8.0); NEUTROPHILS # 6.1 10^3/uL (1.5-8.5); NEUTROPHILS % 73.8 % (36.0-66.0); PLATELET COUNT, AUTOMATED 270 10^3/uL (150-450); RED BLOOD COUNT 3.33 10^6/uL (4.30-6.10); WHITE BLOOD COUNT 8.3 10^3/uL (4.0-10.0)
[2021-03-25 09:00] LABS: BLOOD UREA NITROGEN 27 MG/DL (7-18); CALCIUM LEVEL 9.2 MG/DL (8.8-10.2); CARBON DIOXIDE LEVEL 28 MEQ/L (21-32); CHLORIDE LEVEL 105 MEQ/L (98-107); CREATININE FOR GFR 1.17 MG/DL (0.70-1.30); GLOMERULAR FILTRATION RATE > 60.0 (>42); GLUCOSE, FASTING 113 MG/DL (70-100); POTASSIUM SERUM 4.1 MEQ/L (3.5-5.1); SODIUM LEVEL 139 MEQ/L (136-145)
[2021-03-25] MEDS: COMBIVENT RESPIMAT 100-20MCG INHALER 4GM INH SCH ×3 (09:44→20:00)
--- NOTE | 2021-03-25 13:46 | IPNPDOC ---
PM&R Progress Note DATE OF SERVICE: Mar 24, 2021 Pathology Specialist Progress Note Subjective: Patient seen in his room with Speech therapy and was asked about his plans for discharge. He was able to say that he wanted to go home and was comfortable going home with hospice. He stated he did not want Aleksandra to help him and that he wanted to be left alone with God. He udnerstnds his home will need to be fumigated to rid the house of bed bugs prior to going home. He is agreeable to continuing to get therapy. REVIEW OF SYSTEMS: The following is a completed review of systems and has been reviewed. Review of systems otherwise unremarkable. PAIN: Patient self reports no pain EYES: No recent vision changes EARS, NOSE, & THROAT: + dysphagia, +[place] CARDIOVASCULAR: Denies chest pain or palpitations PULMONARY: Denies shortness of breath GASTROINTESTINAL: Denies constipation/diarrhea GENITOURINARY: denies dysuria, +hematuria MUSCULOSKELETAL: left sided paresis NEUROLOGICAL:+ left sided paresis and parkinsons, +dysarthric HEMATOLOGICAL: denies easy bruising SKIN:+ facial rash PSYCHIATRIC: Unremarkable All other review of systems found to be negative. PHYSICAL EXAMINATION: VITAL SIGNS: Please see below. GENERAL: Pleasant and cooperative. No acute distress. HEENT: PERRL. Extraocular movements intact. Clear conjunctiva, +left facial droop CARDIOVASCULAR: Regular rate and rhythm. No murmurs, rubs, or gallops LUNGS:CTA, No wheezes. No rhonchi ABDOMEN: Soft, nontender, nondistended. Positive bowel sounds. Normal active bowel sounds NEUROLOGICAL: Alert and oriented times three. Cranial nerves II through XII grossly intact. Sensation grossly intact, +dysarthria LUE wrist elbow and wrist flexion tone EXTREMITIES: 5/5 RUE, 3+/5 LUE 5\5 strength right lower extremity. 5-/5 strength in left lower extremity. SKIN: + silver plaque lesions on face LABORATORY DATA: Please see below. ASSESSMENT:80-year-old M with past medical history of HTN, parkinsons, TIA and CVA who presents status post right external capsule/pillai radiata lacunar s troke PLAN: 1. Rehab- PT/OT advance mobility and ADLs, strengthen/stretch/maintain ROM all 4limbs -[employer] CHECK[employer]- dysphagia due to stroke and possibly parkinsons- initially admitted on puree and nectar (downgraded to pudding thickened)- upgraded to honey-thickened liquids 2. Neuro- hx of TIA and CVA with new right external capsule/pillai radiata lacunar infarct with CTA showing severe right vertebral artery stenosis cont ASA, plavix and statin -03-11-21 repeat CTH showing no new hemorrhage, MRI brain showing new right basal ganglia ischemic infarct- case discussed with Dr. Bell who, recs appreciated, s/p permissive HTN -hx of parkinsons cont sinemet -LUAlma and IGNACIO tone started on baclofen -will start seroqeul as patient has been agitated during therapy sessions 3. Cardiac- hx of HTn- cont BP meds -HLD cont statin, zetia -chronic diastolic CHF, poor po intake at this time, s/p IVF, lungs CTA 4. Resp- aspiration precautions, oral care, monitor for infection -CT chest ordered to r/o infiltrate on 03-11-21 which was negative, given new stroke and worsening dysphagia with reported non-productive cough on 03-12-21, with f/u CXR showing new right lung base linear density, patient still with no leukocytosis or fever but given high risk for aspiration and mild new cough s/p course of Levaquin, cont to monitor vitals and labs -combivent and guaifenesin ordered 5. - cont proscar and flomax for BPH, beckham placed Tuesday overnight due to frequent ICs in setting of retention with hematuria- urology assisted and recommended bladder irrigation- heparin d/c'd- 03-23-21 episode of hematuria with clotting, patient's vitals stable, asked nursing to resume bladder irrigation, will cont to monitor Hgb/Hct -Ucx + for yeast >100k and E faecalis- Dr. Bran consulted and patient started on fluconazole, s/p course of levaquin for PNA which covers E faecalis 6. Pain- tylenol prn 7. DVT ppx- heparin d/c'd due to hematuria- on ASa and plavix 8. GI ppx- protonix 9. Skin- turn q2, zinc oxide to sacrum 10. Psych- cont elavil 11. Derm- facial psoriasis cont steroid cream- improving 12. Dispo- TBD spoke at length with Aleksandra, patient's step-daughter who said patient had expressed a desire to go home with hospice, he was able to confirm this desire to me as well. Aleksandra plans to call the manufacturing engineer machining to remove the bed bugs in his home, clean it up, prior to hospice coming into the home. She will be able to proivede 24-7 support for him once he gets home. Allergies Coded Allergies: No Known Allergies (Unverified , 09/29/18) Vital Signs Vital Signs Date Time Temp Pulse Resp B/P (MAP) Pulse Ox O2 Delivery O2 Flow Rate FiO2 03/25/21 12:16 132/58 03/25/21 05:53 98.3 58 17 95 Room Air Laboratory Data CBC/BMP Laboratory Tests 03/25/21 07:54 Labs 24H Laboratory Tests 2 03/25/21 07:54: Immature Granulocyte % (Auto) 0.2, Neutrophils (%) (Auto) 73.8H, Lymphocytes (%) (Auto) 12.2L, Monocytes (%) (Auto) 11.5H, Eosinophils (%) (Auto) 2.1, Basophils (%) (Auto) 0.2, Neutrophils # (Auto) 6.1, Lymphocytes # (Auto) 1.0L, Monocytes # (Auto) 1.0H, Eosinophils # (Auto) 0.2, Basophils # (Auto) 0.0, Nucleated Red Blood Cells % (auto) 0.0, Anion Gap 6L, Glomerular Filtration Rate > 60.0, Calcium Level 9.2 Current Medications Current Medications Current Medications Medications (Trade) Dose Ordered Sig/Atiya Route PRN Reason Start Time Stop Time Status Last Admin Dose Admin Acetaminophen (Tylenol Tab) 650 mg Q4HP PRN PO fever/MILD PAIN (PS 1-4) 03/10/21 15:30 03/23/21 21:07 Albuterol/ Ipratropium (Combivent Respimat 100-20mcg) 1 puff RTID INH 03/12/21 20:00 03/25/21 09:44 Amitriptyline HCl (Elavil) 50 mg QHS PO 03/10/21 21:00 03/24/21 21:08 Amlodipine Besylate (Norvasc) 10 mg QHS PO 03/10/21 21:00 03/11/21 13:05 DC 03/10/21 20:34 Amlodipine Besylate (Norvasc) 10 mg QHS PO 03/13/21 21:00 03/24/21 21:11 Aspirin (Ecotrin) 81 mg DAILY PO 03/11/21 09:00 03/25/21 07:32 Baclofen (Lioresal) 5 mg BID PO 03/12/21 21:00 03/16/21 14:59 DC 03/16/21 08:58 Baclofen (Lioresal) 5 mg TID PO 03/16/21 16:00 03/25/21 07:32 Carbidopa/Levodopa (Sinemet 25/100) 2 tab BID PO 03/10/21 21:00 03/25/21 07:33 Clopidogrel Bisulfate (PLAVix) 75 mg DAILY PO 03/11/21 09:00 03/25/21 07:33 Dextrose/Sodium Chloride 1,000 ml @ 60 mls/hr [id number] IV 03/16/21 10:15 03/18/21 10:54 DC 03/17/21 17:26 Dextrose/Water 1,000 ml @ 60 mls/hr [id number] IV 03/11/21 11:15 03/13/21 14:59 DC 03/13/21 12:25 Emollient Cream (Vanicream) apply to entire face af... BID TOP 03/12/21 09:00 03/25/21 07:51 EZETIMIBE (Zetia) 10 mg QHS PO 03/10/21 21:00 03/24/21 21:08 Finasteride (Proscar) 5 mg DAILY PO 03/11/21 09:00 03/25/21 07:32 Fluconazole (Diflucan Tablet) 200 mg DAILY PO 03/17/21 09:00 03/27/21 08:59 03/25/21 07:32 Guaifenesin (Robitussin Tab) 400 mg TID PO 03/12/21 16:00 03/25/21 07:33 Heparin Sodium (Porcine) (Heparin) 5,000 units Q12H SC 03/10/21 21:00 03/17/21 09:54 DC 03/17/21 09:47 Home Med (Home Med List Complete!) ASDIRECTED XX 03/17/21 15:20 03/17/21 15:27 DC Hydralazine HCl (Apresoline) 25 mg Q6H PRN PO sbp >140 03/13/21 14:50 03/17/21 09:52 DC Hydralazine HCl (Apresoline) 50 mg Q6H PO 03/17/21 12:00 03/25/21 12:16 Hydrocortisone (Hydrocortisone 1% Cream) apply to areas of plaques... BID TOP 03/12/21 09:00 03/25/21 07:51 Levofloxacin (Levaquin) 250 mg DAILY@06 PO 03/14/21 06:00 03/13/21 15:36 DC Levofloxacin (Levaquin) 750 mg Q48H PO 03/15/21 06:00 03/21/21 16:12 DC 03/21/21 05:06 Lidocaine/ Diphenhydr/Alum/ Mg/Simeth (Magic Mouthwash) 5ML-use swab to rinse ... AC MT 03/10/21 17:30 03/25/21 12:16 Losartan Potassium (Cozaar) 12.5 mg DAILY PO 03/13/21 09:00 03/17/21 09:52 DC 03/17/21 09:50 Losartan Potassium (Cozaar) 25 mg DAILY PO 03/11/21 09:00 03/11/21 13:05 DC 03/11/21 09:04 Pantoprazole Sodium (Protonix) 40 mg DAILY PO 03/11/21 09:00 03/25/21 07:33 Polyethylene Glycol (Miralax) 1 pkt DAILY PO 03/16/21 09:00 03/25/21 07:33 Quetiapine Fumarate (SEROquel) 12.5 mg DAILY@0800 PO 03/24/21 08:00 03/25/21 07:32 Rosuvastatin Calcium (Crestor) 40 mg QHS PO 03/10/21 21:00 03/24/21 21:09 Senna/Docusate Sodium (Senokot S) 2 tab BID PO 03/10/21 21:00 03/25/21 07:33 Tamsulosin HCl (Flomax) 0.8 mg DAILY PO 03/11/21 09:00 03/13/21 22:56 DC 03/13/21 10:08 Triamcinolone Acetonide (Kenalog 0.1% Cream) apply to scalp DAILY TOP 03/17/21 09:00 03/25/21 07:51 JOAQUIN SARABIA MD Mar 25, 2021 13:46
--- NOTE | 2021-03-25 13:51 | IPNPDOC ---
PM&R Progress Note DATE OF SERVICE: Mar 25, 2021 Publishing Director Progress Note Subjective: Patient seen in PT wheeling his wheelchair down the harper, appearing to be in good spirits. REVIEW OF SYSTEMS: The following is a completed review of systems and has been reviewed. Review of systems otherwise unremarkable. PAIN: Patient self reports no pain EYES: No recent vision changes EARS, NOSE, & THROAT: + dysphagia, +[place] CARDIOVASCULAR: Denies chest pain or palpitations PULMONARY: Denies shortness of breath GASTROINTESTINAL: Denies constipation/diarrhea GENITOURINARY: denies dysuria, +hematuria (improving) MUSCULOSKELETAL: left sided paresis NEUROLOGICAL:+ left sided paresis and parkinsons, +dysarthric HEMATOLOGICAL: denies easy bruising SKIN:+ facial rash PSYCHIATRIC: Unremarkable All other review of systems found to be negative. PHYSICAL EXAMINATION: VITAL SIGNS: Please see below. GENERAL: Pleasant and cooperative. No acute distress. HEENT: PERRL. Extraocular movements intact. Clear conjunctiva, +left facial droop CARDIOVASCULAR: Regular rate and rhythm. No murmurs, rubs, or gallops LUNGS:CTA, No wheezes. No rhonchi ABDOMEN: Soft, nontender, nondistended. Positive bowel sounds. Normal active bowel sounds NEUROLOGICAL: Alert and oriented times three. Cranial nerves II through XII grossly intact. Sensation grossly intact, +dysarthria LUE wrist elbow and wrist flexion tone EXTREMITIES: 5/5 RUE, 3+/5 LUE 5\5 strength right lower extremity. 5-/5 strength in left lower extremity. SKIN: + silver plaque lesions on face (resolved) LABORATORY DATA: Please see below. ASSESSMENT:80-year-old M with past medical history of HTN, parkinsons, TIA and CVA who presents status post right external capsule/pillai radiata lacunar s troke PLAN: 1. 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 Neuro- hx of TIA and CVA with new right external capsule/pillai radiata lacunar infarct with CTA showing severe right vertebral artery stenosis cont ASA, plavix and statin -03-11-21 repeat CTH showing no new hemorrhage, MRI brain showing new right basal ganglia ischemic infarct- case discussed with Dr. Bell who, recs appreciated, s/p permissive HTN -hx of parkinsons cont sinemet -LUE and IGNACIO ornelas started on baclofen -cont seroqeul as patient has been agitated during therapy sessions 3. Cardiac- hx of HTn- cont BP meds -HLD cont statin, zetia -chronic diastolic CHF, poor po intake at this time, s/p IVF, lungs CTA 4. Resp- aspiration precautions, oral care, monitor for infection -CT chest ordered to r/o infiltrate on 03-11-21 which was negative, given new stroke and worsening dysphagia with reported non-productive cough on 03-12-21, with f/u CXR showing new right lung base linear density, patient still with no leukocytosis or fever but given high risk for aspiration and mild new cough s/p course of Levaquin, cont to monitor vitals and labs -combivent and guaifenesin ordered 5. - cont proscar and flomax for BPH, beckham placed due to frequent ICs in setting of retention with hematuria- urology assisted and recommended bladder irrigation- heparin d/c'd- 03-23-21 episode of hematuria with clotting which has nearly resolved, patient's vitals cont to be stable, cont bladder irrigation, will cont to monitor Hgb/Hct- stable -Ucx + for yeast >100k and E faecalis- Dr. Bran consulted and patient started on fluconazole, s/p course of levaquin for PNA which covers E faecalis 6. Pain- tylenol prn 7. DVT ppx- heparin d/c'd due to hematuria- on ASa and plavix 8. GI ppx- protonix 9. Skin- turn q2, zinc oxide to sacrum 10. Psych- cont elavil 11. Derm- facial psoriasis cont steroid cream- improving 12. Dispo- 04-06-21 to home with hospice- patient is still participating in therapy and will benefit from ongoing family training Allergies Coded Allergies: No Known Allergies (Unverified , 09/29/18) Vital Signs Vital Signs Date Time Temp Pulse Resp B/P (MAP) Pulse Ox O2 Delivery O2 Flow Rate FiO2 03/25/21 12:16 132/58 03/25/21 05:53 98.3 58 17 95 Room Air Laboratory Data CBC/BMP Laboratory Tests 03/25/21 07:54 Labs 24H Laboratory Tests 2 03/25/21 07:54: Immature Granulocyte % (Auto) 0.2, Neutrophils (%) (Auto) 73.8H, Lymphocytes (%) (Auto) 12.2L, Monocytes (%) (Auto) 11.5H, Eosinophils (%) (Auto) 2.1, Basophils (%) (Auto) 0.2, Neutrophils # (Auto) 6.1, Lymphocytes # (Auto) 1.0L, Monocytes # (Auto) 1.0H, Eosinophils # (Auto) 0.2, Basophils # (Auto) 0.0, Nucleated Red Blood Cells % (auto) 0.0, Anion Gap 6L, Glomerular Filtration Rate > 60.0, Justo cium Level 9.2 Current Medications Current Medications Current Medications Medications (Trade) Dose Ordered Sig/Atiya Route PRN Reason Start Time Stop Time Status Last Admin Dose Admin Acetaminophen (Tylenol Tab) 650 mg Q4HP PRN PO fever/MILD PAIN (PS 1-4) 03/10/21 15:30 03/23/21 21:07 Albuterol/ Ipratropium (Combivent Respimat 100-20mcg) 1 puff RTID INH 03/12/21 20:00 03/25/21 09:44 Amitriptyline HCl (Elavil) 50 mg QHS PO 03/10/21 21:00 03/24/21 21:08 Amlodipine Besylate (Norvasc) 10 mg QHS PO 03/10/21 21:00 03/11/21 13:05 DC 03/10/21 20:34 Amlodipine Besylate (Norvasc) 10 mg QHS PO 03/13/21 21:00 03/24/21 21:11 Aspirin (Ecotrin) 81 mg DAILY PO 03/11/21 09:00 03/25/21 07:32 Baclofen (Lioresal) 5 mg BID PO 03/12/21 21:00 03/16/21 14:59 DC 03/16/21 08:58 Baclofen (Lioresal) 5 mg TID PO 03/16/21 16:00 03/25/21 07:32 Carbidopa/Levodopa (Sinemet 25/100) 2 tab BID PO 03/10/21 21:00 03/25/21 07:33 Clopidogrel Bisulfate (PLAVix) 75 mg DAILY PO 03/11/21 09:00 03/25/21 07:33 Dextrose/Sodium Chloride 1,000 ml @ 60 mls/hr [id number] IV 03/16/21 10:15 03/18/21 10:54 DC 03/17/21 17:26 Dextrose/Water 1,000 ml @ 60 mls/hr [id number] IV 03/11/21 11:15 03/13/21 14:59 DC 03/13/21 12:25 Emollient Cream (Vanicream) apply to entire face af... BID TOP 03/12/21 09:00 03/25/21 07:51 EZETIMIBE (Zetia) 10 mg QHS PO 03/10/21 21:00 03/24/21 21:08 Finasteride (Proscar) 5 mg DAILY PO 03/11/21 09:00 03/25/21 07:32 Fluconazole (Diflucan Tablet) 200 mg DAILY PO 03/17/21 09:00 03/27/21 08:59 03/25/21 07:32 Guaifenesin (Robitussin Tab) 400 mg TID PO 03/12/21 16:00 03/25/21 07:33 Heparin Sodium (Porcine) (Heparin) 5,000 units Q12H SC 03/10/21 21:00 03/17/21 09:54 DC 03/17/21 09:47 Home Med (Home Med List Complete!) ASDIRECTED XX 03/17/21 15:20 03/17/21 15:27 DC Hydralazine HCl (Apresoline) 25 mg Q6H PRN PO sbp >140 03/13/21 14:50 03/17/21 09:52 DC Hydralazine HCl (Apresoline) 50 mg Q6H PO 03/17/21 12:00 03/25/21 12:16 Hydrocortisone (Hydrocortisone 1% Cream) apply to areas of plaques... BID TOP 03/12/21 09:00 03/25/21 07:51 Levofloxacin (Levaquin) 250 mg DAILY@06 PO 03/14/21 06:00 03/13/21 15:36 DC Levofloxacin (Levaquin) 750 mg Q48H PO 03/15/21 06:00 03/21/21 16:12 DC 03/21/21 05:06 Lidocaine/ Diphenhydr/Alum/ Mg/Simeth (Magic Mouthwash) 5ML-use swab to rinse ... AC MT 03/10/21 17:30 03/25/21 12:16 Losartan Potassium (Cozaar) 12.5 mg DAILY PO 03/13/21 09:00 03/17/21 09:52 DC 03/17/21 09:50 Losartan Potassium (Cozaar) 25 mg DAILY PO 03/11/21 09:00 03/11/21 13:05 DC 03/11/21 09:04 Pantoprazole Sodium (Protonix) 40 mg DAILY PO 03/11/21 09:00 03/25/21 07:33 Polyethylene Glycol (Miralax) 1 pkt DAILY PO 03/16/21 09:00 03/25/21 07:33 Quetiapine Fumarate (SEROquel) 12.5 mg DAILY@0800 PO 03/24/21 08:00 03/25/21 07:32 Rosuvastatin Calcium (Crestor) 40 mg QHS PO 03/10/21 21:00 03/24/21 21:09 Senna/Docusate Sodium (Senokot S) 2 tab BID PO 03/10/21 21:00 03/25/21 07:33 Tamsulosin HCl (Flomax) 0.8 mg DAILY PO 03/11/21 09:00 03/13/21 22:56 DC 03/13/21 10:08 Triamcinolone Acetonide (Kenalog 0.1% Cream) apply to scalp DAILY TOP 03/17/21 09:00 03/25/21 07:51 JOAQUIN SARABIA MD Mar 25, 2021 13:51
[2021-03-25 14:00] VITALS: BP 143/66
[2021-03-25 20:00] VITALS: BP 132/74
[2021-03-25] MEDS: EZETIMIBE 10MG TABLET (ZETIA) PO SCH (20:28)
[2021-03-25] MEDS: AMITRIPTYLINE 50 MG TAB PO SCH (20:29)
[2021-03-25] MEDS: ROSUVASTATIN 10 MG TAB (CRESTOR) PO SCH (20:29)
[2021-03-26] MEDS: **hydrALAZINE** 50 MG TAB PO SCH ×4 (00:16→17:43)
[2021-03-26] MEDS: ACETAMINOPHEN TAB 650MG DOSE (2X325MG) PO PRN ×2 (00:50→21:52)
[2021-03-26] MEDS: REMEDY PHYTOPLEX Z-GUARD PASTE 113GM TUBE (FROM STOREROOM PRODUCT) TOP SCH ×4 (03:30→20:36)
[2021-03-26 06:00] VITALS: BP 124/60
[2021-03-26] MEDS: COMBIVENT RESPIMAT 100-20MCG INHALER 4GM INH SCH ×3 (08:41→18:25)
[2021-03-26] MEDS: MIRALAX *UNIT DOSE* 17GM PACKET PO SCH (09:00)
[2021-03-26] MEDS: SENOKOT S TAB PO SCH ×2 (09:00→20:35)
[2021-03-26] MEDS: FLUCONAZOLE 100 MG TAB PO SCH (09:22)
[2021-03-26] MEDS: BACLOFEN 5MG PER 1/2 TABLET PO SCH ×3 (09:22→20:33)
[2021-03-26] MEDS: ASPIRIN 81MG ENTERIC TABLET PO SCH (09:22)
[2021-03-26] MEDS: CLOPIDOGREL 75 MG TAB PO SCH (09:22)
[2021-03-26] MEDS: PANTOPRAZOLE 40MG TAB (PROTONIX) PO SCH (09:22)
[2021-03-26] MEDS: FINASTERIDE 5 MG TAB PO SCH (09:22)
[2021-03-26] MEDS: QUEtiapine FUMARATE 12.5 MG HALF-TAB PO SCH (09:22)
[2021-03-26] MEDS: SINEMET 25-100 MG TAB PO SCH ×2 (09:23→20:35)
[2021-03-26] MEDS: guaiFENesin 200 MG TAB PO SCH ×3 (09:23→20:33)
[2021-03-26] MEDS: MAGIC MOUTHWASH SUSPENSION BTL MT SCH ×3 (09:24→17:45)
[2021-03-26] MEDS: VANICREAM MOISTURIZING SKIN CREAM 113GM TUBE TOP SCH ×2 (09:27→20:38)
[2021-03-26] MEDS: HYDROCORTISONE 1% CREAM 30 GM TOP SCH ×2 (09:27→20:38)
[2021-03-26] MEDS: TRIAMCINOLONE ACET 0.1% CREAM 80 GM TOP SCH (09:27)
[2021-03-26] MEDS: LIDOCAINE 5% (LIDODERM) PATCH TD SCH (12:31)
--- NOTE | 2021-03-26 15:51 | IPNPDOC ---
Subjective Date Seen The patient was seen on 03/26/21. Subjective Chief Complaint/HPI Patient was seen and examined at bedside this morning. He was in good spirits and had no new complaints. Objective Physical Examination Other physical findings General: Lying in bed, no acute distress Head/Neck/Throat: Trachea midline, mucous membranes moist Eyes: Sclera anicteric, PERRLA Thorax: Normal respiratory effort on room air, lungs clear to auscultation bilaterally, no wheezes/rales/rhonchi Cardiovascular: Normal rate, regular rhythm, normal S1, S2; no S3, S4, rubs/gallops/murmurs Abdomen: Bowel sounds present, soft/nontender/nondistended Genitourinary: No CVA tenderness, no Amos in place Skin: Warm, dry Neurologic: AAOx2 (unable to tell me who the president was). Dysarthria, left facial droop, strength in the right upper extremity is 3/5. Strength in the left upper and lower extremities 5/5, strength in the right lower extremity is 5/5. Assessment /Plan Assessment #CVA -Acute infarct appreciated on MRI. Continue w/ asa, clopidogrel, and statin therapy. -Rehab as per aru. #Oropharyngeal dysphagia -continue to work with speech therapy and diet recommendations #Hypertension -Continue ambulatory antihypertensives. #Hyperlipidemia -Continue statin therapy, and Zetia #Parkinson's disease -Continue Sinemet #GERD -Continue pantoprazole #BPH -Continue his finasteride #Hematuria -This is now resolved. Heparin subcu was discontinued. Urology following. #Constipation -Continue with laxative #DVT Prophylaxis -Heparin was discontinued due to episode of hematuria Plan/VTE VTE Prophylaxis Ordered?: Yes VS, I&O, 24H, Fishbone Vital Signs/I&O Vital Signs Date Time Temp Pulse Resp B/P (MAP) Pulse Ox O2 Delivery O2 Flow Rate FiO2 03/26/21 14:00 97.2 59 18 95 Room Air 03/26/21 12:31 150/62 I&O- Last 24 Hours up to 6 AM 03/26/21 06:00 Intake Total 1080 ml Output Total 1375 ml Balance -295 ml BENITA RIVERA M.D. Mar 26, 2021 15:51
[2021-03-26 20:00] VITALS: BP 142/58
[2021-03-26] MEDS: ROSUVASTATIN 10 MG TAB (CRESTOR) PO SCH (20:35)
[2021-03-26] MEDS: AMITRIPTYLINE 50 MG TAB PO SCH (20:35)
[2021-03-26] MEDS: EZETIMIBE 10MG TABLET (ZETIA) PO SCH (20:35)
[2021-03-26] MEDS: **NOTE PATIENT COMMENT** MISC XX SCH (20:38)
[2021-03-27] MEDS: REMEDY PHYTOPLEX Z-GUARD PASTE 113GM TUBE (FROM STOREROOM PRODUCT) TOP SCH ×4 (03:30→21:15)
[2021-03-27 06:00] VITALS: BP 158/70
[2021-03-27] MEDS: **hydrALAZINE** 50 MG TAB PO SCH ×4 (06:23→18:40)
[2021-03-27 07:50] LABS: BASO % 0.4 % (0.0-1.0); EOS # 0.1 10^3/uL (0.0-0.5); EOS % 2.5 % (0.0-3.0); HEMATOCRIT 31.8 % (42.0-52.0); HEMOGLOBIN 10.2 g/dl (13.5-17.5); LYMPH # 0.7 10^3/uL (1.5-5.0); LYMPH % 13.5 % (24.0-44.0); MEAN CORPUSCULAR HGB CONC 32.1 g/dl (32.0-36.5); MEAN CORPUSCULAR VOLUME 99.7 fl (80.0-96.0); MONO # 0.6 10^3/uL (0.0-0.8); MONO % 11.1 % (2.0-8.0); NEUTROPHILS # 3.7 10^3/uL (1.5-8.5); NEUTROPHILS % 72.3 % (36.0-66.0); PLATELET COUNT, AUTOMATED 276 10^3/uL (150-450); RED BLOOD COUNT 3.19 10^6/uL (4.30-6.10); WHITE BLOOD COUNT 5.1 10^3/uL (4.0-10.0)
[2021-03-27 08:09] LABS: BLOOD UREA NITROGEN 24 MG/DL (7-18); CALCIUM LEVEL 9.4 MG/DL (8.8-10.2); CARBON DIOXIDE LEVEL 29 MEQ/L (21-32); CHLORIDE LEVEL 106 MEQ/L (98-107); CREATININE FOR GFR 1.07 MG/DL (0.70-1.30); GLOMERULAR FILTRATION RATE > 60.0 (>42); GLUCOSE, FASTING 107 MG/DL (70-100); POTASSIUM SERUM 4.2 MEQ/L (3.5-5.1); SODIUM LEVEL 139 MEQ/L (136-145)
[2021-03-27] MEDS: MAGIC MOUTHWASH SUSPENSION BTL MT SCH ×3 (09:14→16:52)
[2021-03-27] MEDS: LIDOCAINE 5% (LIDODERM) PATCH TD SCH (09:15)
[2021-03-27] MEDS: VANICREAM MOISTURIZING SKIN CREAM 113GM TUBE TOP SCH ×2 (09:15→21:15)
[2021-03-27] MEDS: HYDROCORTISONE 1% CREAM 30 GM TOP SCH ×2 (09:15→21:14)
[2021-03-27] MEDS: COMBIVENT RESPIMAT 100-20MCG INHALER 4GM INH SCH ×3 (09:15→20:12)
[2021-03-27] MEDS: TRIAMCINOLONE ACET 0.1% CREAM 80 GM TOP SCH (09:16)
[2021-03-27] MEDS: ASPIRIN 81MG ENTERIC TABLET PO SCH (09:17)
[2021-03-27] MEDS: MIRALAX *UNIT DOSE* 17GM PACKET PO SCH (09:17)
[2021-03-27] MEDS: FINASTERIDE 5 MG TAB PO SCH (09:17)
[2021-03-27] MEDS: QUEtiapine FUMARATE 12.5 MG HALF-TAB PO SCH (09:17)
[2021-03-27] MEDS: SENOKOT S TAB PO SCH ×2 (09:18→21:14)
[2021-03-27] MEDS: SINEMET 25-100 MG TAB PO SCH ×2 (09:18→21:13)
[2021-03-27] MEDS: CLOPIDOGREL 75 MG TAB PO SCH (09:18)
[2021-03-27] MEDS: PANTOPRAZOLE 40MG TAB (PROTONIX) PO SCH (09:18)
[2021-03-27] MEDS: BACLOFEN 5MG PER 1/2 TABLET PO SCH ×3 (09:18→21:13)
[2021-03-27] MEDS: guaiFENesin 200 MG TAB PO SCH ×3 (09:18→21:14)
--- NOTE | 2021-03-27 09:51 | IPNPDOC ---
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 He is working on stretching his left arm. REVIEW OF SYSTEMS: The following is a completed review of systems and has been reviewed. Review of systems otherwise unremarkable. PAIN: Patient self reports no pain EYES: No recent vision changes EARS, NOSE, & THROAT: + dysphagia, +[place] CARDIOVASCULAR: Denies chest pain or palpitations PULMONARY: Denies shortness of breath GASTROINTESTINAL: Denies constipation/diarrhea GENITOURINARY: denies dysuria, +hematuria (resolved) MUSCULOSKELETAL: left sided paresis NEUROLOGICAL:+ left sided paresis and parkinsons, +dysarthric HEMATOLOGICAL: denies easy bruising SKIN:+ facial rash PSYCHIATRIC: Unremarkable All other review of systems found to be negative. PHYSICAL EXAMINATION: VITAL SIGNS: Please see below. GENERAL: Pleasant and cooperative. No acute distress. HEENT: PERRL. Extraocular movements intact. Clear conjunctiva, +left facial droop CARDIOVASCULAR: Regular rate and rhythm. No murmurs, rubs, or gallops LUNGS:CTA, No wheezes. No rhonchi ABDOMEN: Soft, nontender, nondistended. Positive bowel sounds. Normal active bowel sounds NEUROLOGICAL: Alert and oriented times three. Cranial nerves II through XII grossly intact. Sensation grossly intact, +dysarthria LUE wrist elbow and wrist flexion tone EXTREMITIES: 5/5 RUE, 3+/5 LUE 5\5 strength right lower extremity. 5-/5 strength in left lower extremity. SKIN: + silver plaque lesions on face (resolved) LABORATORY DATA: Please see below. ASSESSMENT:80-year-old M with past medical history of HTN, parkinsons, TIA and CVA who presents status post right external capsule/pillai radiata lacunar stroke PLAN: 1. 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 Neuro- hx of TIA and CVA with new right external capsule/pillai radiata lacunar infarct with CTA showing severe right vertebral artery stenosis cont ASA, plavix and statin -03-11-21 repeat CTH showing no new hemorrhage, MRI brain showing new right basal ganglia ischemic infarct- case discussed with Dr. Bell who, recs appreciated, s/p permissive HTN -hx of parkinsons cont sinemet -LUE and IGNACIO ornelas started on baclofen -cont seroqeul as patient has been agitated during therapy sessions 3. Cardiac- hx of HTn- cont BP meds -HLD cont statin, zetia -chronic diastolic CHF, poor po intake at this time, s/p IVF, lungs CTA 4. Resp- aspiration precautions, oral care, monitor for infection -CT chest ordered to r/o infiltrate on 03-11-21 which was negative, given new stroke and worsening dysphagia with reported non-productive cough on 03-12-21, with f/u CXR showing new right lung base linear density, patient still with no leukocytosis or fever but given high risk for aspiration and mild new cough s/p course of Levaquin, cont to monitor vitals and labs -combivent and guaifenesin ordered 5. - cont proscar and flomax for BPH, beckham placed due to frequent ICs in setting of retention with hematuria- urology assisted and recommended bladder irrigation- heparin d/c'd- 03-23-21 episode of hematuria with clotting which has resolved, patient's vitals cont to be stable will cont to monitor Hgb/Hct-stable -Ucx + for yeast >100k and E faecalis- Dr. Bran consulted and patient started and completed course of fluconazole, s/p course of levaquin for PNA which covers E faecalis 6. Pain- tylenol prn 7. DVT ppx- heparin d/c'd due to hematuria- on ASa and plavix 8. GI ppx- protonix 9. Skin- turn q2, zinc oxide to sacrum 10. Psych- cont elavil 11. Derm- facial psoriasis cont steroid cream- improving 12. Dispo- 04-06-21 to home with hospice- patient is still participating in therapy and will benefit from ongoing family training Allergies Coded Allergies: No Known Allergies (Unverified , 09/29/18) Vital Signs Vital Signs Date Time Temp Pulse Resp B/P (MAP) Pulse Ox O2 Delivery O2 Flow Rate FiO2 03/27/21 06:23 158/70 03/27/21 06:00 98.4 88 18 95 Room Air Laboratory Data CBC/BMP Laboratory Tests 03/27/21 06:55 Labs 24H Laboratory Tests 2 03/27/21 06:55: Immature Granulocyte % (Auto) 0.2, Neutrophils (%) (Auto) 72.3H, Lymphocytes (%) (Auto) 13.5L, Monocytes (%) (Auto) 11.1H, Eosinophils (%) (Auto) 2.5, Basophils (%) (Auto) 0.4, Neutrophils # (Auto) 3.7, Lymphocytes # (Auto) 0.7L, Monocytes # (Auto) 0.6, Eosinophils # (Auto) 0.1, Basophils # (Auto) 0.0, Nucleated Red Blood Cells % (auto) 0.0, Anion Gap 4L, Glomerular Filtration Rate > 60.0, Calcium Level 9.4 Current Medications Current Medications Current Medications Medications (Trade) Dose Ordered Sig/Atiya Route PRN Reason Start Time Stop Time Status Last Admin Dose Admin Acetaminophen (Tylenol Tab) 650 mg Q4HP PRN PO fever/MILD PAIN (PS 1-4) 03/10/21 15:30 03/26/21 21:52 Albuterol/ Ipratropium (Combivent Respimat 100-20mcg) 1 puff RTID INH 03/12/21 20:00 03/26/21 18:25 Amitriptyline HCl (Elavil) 50 mg QHS PO 03/10/21 21:00 03/26/21 20:35 Amlodipine Besylate (Norvasc) 10 mg QHS PO 03/10/21 21:00 03/11/21 13:05 DC 03/10/21 20:34 Amlodipine Besylate (Norvasc) 10 mg QHS PO 03/13/21 21:00 03/26/21 20:35 Aspirin (Ecotrin) 81 mg DAILY PO 03/11/21 09:00 03/27/21 09:17 Baclofen (Lioresal) 5 mg BID PO 03/12/21 21:00 03/16/21 14:59 DC 03/16/21 08:58 Baclofen (Lioresal) 5 mg TID PO 03/16/21 16:00 03/27/21 09:18 Carbidopa/Levodopa (Sinemet 25/100) 2 tab BID PO 03/10/21 21:00 03/27/21 09:18 Clopidogrel Bisulfate (PLAVix) 75 mg DAILY PO 03/11/21 09:00 03/27/21 09:18 Dextrose/Sodium Chloride 1,000 ml @ 60 mls/hr [id number] IV 03/16/21 10:15 03/18/21 10:54 DC 03/17/21 17:26 Dextrose/Water 1,000 ml @ 60 mls/hr [id number] IV 03/11/21 11:15 03/13/21 14:59 DC 03/13/21 12:25 Emollient Cream (Vanicream) apply to entire face af... BID TOP 03/12/21 09:00 03/27/21 09:15 EZETIMIBE (Zetia) 10 mg QHS PO 03/10/21 21:00 03/26/21 20:35 Finasteride (Proscar) 5 mg DAILY PO 03/11/21 09:00 03/27/21 09:17 Fluconazole (Diflucan Tablet) 200 mg DAILY PO 03/17/21 09:00 03/27/21 08:59 DC 03/26/21 09:22 Guaifenesin (Robitussin Tab) 400 mg TID PO 03/12/21 16:00 03/27/21 09:18 Heparin Sodium (Porcine) (Heparin) 5,000 units Q12H SC 03/10/21 21:00 03/17/21 09:54 DC 03/17/21 09:47 Home Med (Home Med List Complete!) ASDIRECTED XX 03/17/21 15:20 03/17/21 15:27 DC Hydralazine HCl (Apresoline) 25 mg Q6H PRN PO sbp >140 03/13/21 14:50 03/17/21 09:52 DC Hydralazine HCl (Apresoline) 50 mg Q6H PO 03/17/21 12:00 03/27/21 06:23 Hydrocortisone (Hydrocortisone 1% Cream) apply to areas of plaques... BID TOP 03/12/21 09:00 03/27/21 09:15 Levofloxacin (Levaquin) 250 mg DAILY@06 PO 03/14/21 06:00 03/13/21 15:36 DC Levofloxacin (Levaquin) 750 mg Q48H PO 03/15/21 06:00 03/21/21 16:12 DC 03/21/21 05:06 Lidocaine (Lidoderm Patch) 1 patch DAILY TD 03/26/21 09:00 03/27/21 09:15 Lidocaine/ Diphenhydr/Alum/ Mg/Simeth (Magic Mouthwash) 5ML-use swab to rinse ... AC MT 03/10/21 17:30 03/27/21 09:14 Losartan Potassium (Cozaar) 12.5 mg DAILY PO 03/13/21 09:00 03/17/21 09:52 DC 03/17/21 09:50 Losartan Potassium (Cozaar) 25 mg DAILY PO 03/11/21 09:00 03/11/21 13:05 DC 03/11/21 09:04 Non-Formulary Medication ( See Comment Field Below ) REMOVE LIDODERM PATCH DAILY@21 XX 03/26/21 21:00 03/26/21 20:38 Pantoprazole Sodium (Protonix) 40 mg DAILY PO 03/11/21 09:00 03/27/21 09:18 Polyethylene Glycol (Miralax) 1 pkt DAILY PO 03/16/21 09:00 03/27/21 09:17 Quetiapine Fumarate (SEROquel) 12.5 mg DAILY@0800 PO 03/24/21 08:00 03/27/21 09:17 Rosuvastatin Calcium (Crestor) 40 mg QHS PO 03/10/21 21:00 03/26/21 20:35 Senna/Docusate Sodium (Senokot S) 2 tab BID PO 03/10/21 21:00 03/27/21 09:18 Tamsulosin HCl (Flomax) 0.8 mg DAILY PO 03/11/21 09:00 03/13/21 22:56 DC 03/13/21 10:08 Triamcinolone Acetonide (Kenalog 0.1% Cream) apply to scalp DAILY TOP 03/17/21 09:00 03/27/21 09:16 JOAQUIN SARABIA MD Mar 27, 2021 09:51
--- NOTE | 2021-03-27 09:51 | IPNPDOC ---
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 He states he does not want to wear the brace on his left arm all night. REVIEW OF SYSTEMS: The following is a completed review of systems and has been reviewed. Review of systems otherwise unremarkable. PAIN: Patient self reports no pain EYES: No recent vision changes EARS, NOSE, & THROAT: + dysphagia, +[place] CARDIOVASCULAR: Denies chest pain or palpitations PULMONARY: Denies shortness of breath GASTROINTESTINAL: Denies constipation/diarrhea GENITOURINARY: denies dysuria, +hematuria (resolved) MUSCULOSKELETAL: left sided paresis NEUROLOGICAL:+ left sided paresis and parkinsons, +dysarthric HEMATOLOGICAL: denies easy bruising SKIN:+ facial rash PSYCHIATRIC: Unremarkable All other review of systems found to be negative. PHYSICAL EXAMINATION: VITAL SIGNS: Please see below. GENERAL: Pleasant and cooperative. No acute distress. HEENT: PERRL. Extraocular movements intact. Clear conjunctiva, +left facial droop CARDIOVASCULAR: Regular rate and rhythm. No murmurs, rubs, or gallops LUNGS:CTA, No wheezes. No rhonchi ABDOMEN: Soft, nontender, nondistended. Positive bowel sounds. Normal active bowel sounds NEUROLOGICAL: Alert and oriented times three. Cranial nerves II through XII grossly intact. Sensation grossly intact, +dysarthria LUE wrist elbow and wrist flexion tone EXTREMITIES: 5/5 RUE, 3+/5 LUE 5\5 strength right lower extremity. 5-/5 strength in left lower extremity. SKIN: + silver plaque lesions on face (resolved) LABORATORY DATA: Please see below. ASSESSMENT:80-year-old M with past medical history of HTN, parkinsons, TIA and CVA who presents status post right external capsule/pillai radiata lacunar stroke PLAN: 1. 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 Neuro- hx of TIA and CVA with new right external capsule/pillai radiata lacunar infarct with CTA showing severe right vertebral artery stenosis cont ASA, plavix and statin -03-11-21 repeat CTH showing no new hemorrhage, MRI brain showing new right basal ganglia ischemic infarct- case discussed with Dr. Bell who, recs appreciated, s/p permissive HTN -hx of parkinsons cont sinemet -LUE and IGNACIO ornelas started on baclofen -cont seroqeul as patient has been agitated during therapy sessions 3. Cardiac- hx of HTn- cont BP meds -HLD cont statin, zetia -chronic diastolic CHF, poor po intake at this time, s/p IVF, lungs CTA 4. Resp- aspiration precautions, oral care, monitor for infection -CT chest ordered to r/o infiltrate on 03-11-21 which was negative, given new stroke and worsening dysphagia with reported non-productive cough on 03-12-21, with f/u CXR showing new right lung base linear density, patient still with no leukocytosis or fever but given high risk for aspiration and mild new cough s/p course of Levaquin, cont to monitor vitals and labs -combivent and guaifenesin ordered 5. - cont proscar and flomax for BPH, beckham placed due to frequent ICs in setting of retention with hematuria- urology assisted and recommended bladder irrigation- heparin d/c'd- 03-23-21 episode of hematuria with clotting which has resolved, patient's vitals cont to be stable, cont bladder irrigation, will cont to monitor Hgb/Hct-stable -Ucx + for yeast >100k and E faecalis- Dr. Bran consulted and patient started on fluconazole, s/p course of levaquin for PNA which covers E faecalis 6. Pain- tylenol prn 7. DVT ppx- heparin d/c'd due to hematuria- on ASa and plavix 8. GI ppx- protonix 9. Skin- turn q2, zinc oxide to sacrum 10. Psych- cont elavil 11. Derm- facial psoriasis cont steroid cream- improving 12. Dispo- 04-06-21 to home with hospice- patient is still participating in therapy and will benefit from ongoing family training Allergies Coded Allergies: No Known Allergies (Unverified , 09/29/18) Vital Signs Vital Signs Date Time Temp Pulse Resp B/P (MAP) Pulse Ox O2 Delivery O2 Flow Rate FiO2 03/27/21 06:23 158/70 03/27/21 06:00 98.4 88 18 95 Room Air Laboratory Data CBC/BMP Laboratory Tests 03/27/21 06:55 Labs 24H Laboratory Tests 2 03/27/21 06:55: Immature Granulocyte % (Auto) 0.2, Neutrophils (%) (Auto) 72.3H, Lymphocytes (%) (Auto) 13.5L, Monocytes (%) (Auto) 11.1H, Eosinophils (%) (Auto) 2.5, Basophils (%) (Auto) 0.4, Neutrophils # (Auto) 3.7, Lymphocytes # (Auto) 0.7L, Monocytes # (Auto) 0.6, Eosinophils # (Auto) 0.1, Basophils # (Auto) 0.0, Nucleated Red Blood Cells % (auto) 0.0, Anion Gap 4L, Glomerular Filtration Rate > 60.0, Calcium Level 9.4 Current Medications Current Medications Current Medications Medications (Trade) Dose Ordered Sig/Atiya Route PRN Reason Start Time Stop Time Status Last Admin Dose Admin Acetaminophen (Tylenol Tab) 650 mg Q4HP PRN PO fever/MILD PAIN (PS 1-4) 03/10/21 15:30 03/26/21 21:52 Albuterol/ Ipratropium (Combivent Respimat 100-20mcg) 1 puff RTID INH 03/12/21 20:00 03/26/21 18:25 Amitriptyline HCl (Elavil) 50 mg QHS PO 03/10/21 21:00 03/26/21 20:35 Amlodipine Besylate (Norvasc) 10 mg QHS PO 03/10/21 21:00 03/11/21 13:05 DC 03/10/21 20:34 Amlodipine Besylate (Norvasc) 10 mg QHS PO 03/13/21 21:00 03/26/21 20:35 Aspirin (Ecotrin) 81 mg DAILY PO 03/11/21 09:00 03/27/21 09:17 Baclofen (Lioresal) 5 mg BID PO 03/12/21 21:00 03/16/21 14:59 DC 03/16/21 08:58 Baclofen (Lioresal) 5 mg TID PO 03/16/21 16:00 03/27/21 09:18 Carbidopa/Levodopa (Sinemet 25/100) 2 tab BID PO 03/10/21 21:00 03/27/21 09:18 Clopidogrel Bisulfate (PLAVix) 75 mg DAILY PO 03/11/21 09:00 03/27/21 09:18 Dextrose/Sodium Chloride 1,000 ml @ 60 mls/hr [id number] IV 03/16/21 10:15 03/18/21 10:54 DC 03/17/21 17:26 Dextrose/Water 1,000 ml @ 60 mls/hr [id number] IV 03/11/21 11:15 03/13/21 14:59 DC 03/13/21 12:25 Emollient Cream (Vanicream) apply to entire face af... BID TOP 03/12/21 09:00 03/27/21 09:15 EZETIMIBE (Zetia) 10 mg QHS PO 03/10/21 21:00 03/26/21 20:35 Finasteride (Proscar) 5 mg DAILY PO 03/11/21 09:00 03/27/21 09:17 Fluconazole (Diflucan Tablet) 200 mg DAILY PO 03/17/21 09:00 03/27/21 08:59 DC 03/26/21 09:22 Guaifenesin (Robitussin Tab) 400 mg TID PO 03/12/21 16:00 03/27/21 09:18 Heparin Sodium (Porcine) (Heparin) 5,000 units Q12H SC 03/10/21 21:00 03/17/21 09:54 DC 03/17/21 09:47 Home Med (Home Med List Complete!) ASDIRECTED XX 03/17/21 15:20 03/17/21 15:27 DC Hydralazine HCl (Apresoline) 25 mg Q6H PRN PO sbp >140 03/13/21 14:50 03/17/21 09:52 DC Hydralazine HCl (Apresoline) 50 mg Q6H PO 03/17/21 12:00 03/27/21 06:23 Hydrocortisone (Hydrocortisone 1% Cream) apply to areas of plaques... BID TOP 03/12/21 09:00 03/27/21 09:15 Levofloxacin (Levaquin) 250 mg DAILY@06 PO 03/14/21 06:00 03/13/21 15:36 DC Levofloxacin (Levaquin) 750 mg Q48H PO 03/15/21 06:00 03/21/21 16:12 DC 03/21/21 05:06 Lidocaine (Lidoderm Patch) 1 patch DAILY TD 03/26/21 09:00 03/27/21 09:15 Lidocaine/ Diphenhydr/Alum/ Mg/Simeth (Magic Mouthwash) 5ML-use swab to rinse ... AC MT 03/10/21 17:30 03/27/21 09:14 Losartan Potassium (Cozaar) 12.5 mg DAILY PO 03/13/21 09:00 03/17/21 09:52 DC 03/17/21 09:50 Losartan Potassium (Cozaar) 25 mg DAILY PO 03/11/21 09:00 03/11/21 13:05 DC 03/11/21 09:04 Non-Formulary Medication ( See Comment Field Below ) REMOVE LIDODERM PATCH DAILY@21 XX 03/26/21 21:00 03/26/21 20:38 Pantoprazole Sodium (Protonix) 40 mg DAILY PO 03/11/21 09:00 03/27/21 09:18 Polyethylene Glycol (Miralax) 1 pkt DAILY PO 03/16/21 09:00 03/27/21 09:17 Quetiapine Fumarate (SEROquel) 12.5 mg DAILY@0800 PO 03/24/21 08:00 03/27/21 09:17 Rosuvastatin Calcium (Crestor) 40 mg QHS PO 03/10/21 21:00 03/26/21 20:35 Senna/Docusate Sodium (Senokot S) 2 tab BID PO 03/10/21 21:00 03/27/21 09:18 Tamsulosin HCl (Flomax) 0.8 mg DAILY PO 03/11/21 09:00 03/13/21 22:56 DC 03/13/21 10:08 Triamcinolone Acetonide (Kenalog 0.1% Cream) apply to scalp DAILY TOP 03/17/21 09:00 03/27/21 09:16 JOAQUIN SARABIA MD Mar 27, 2021 09:51
[2021-03-27 14:00] VITALS: BP 151/71
[2021-03-27 20:16] VITALS: BP 130/68
[2021-03-27] MEDS: ROSUVASTATIN 10 MG TAB (CRESTOR) PO SCH (21:12)
[2021-03-27] MEDS: EZETIMIBE 10MG TABLET (ZETIA) PO SCH (21:12)
[2021-03-27] MEDS: AMITRIPTYLINE 50 MG TAB PO SCH (21:14)
[2021-03-27] MEDS: **NOTE PATIENT COMMENT** MISC XX SCH (21:15)
[2021-03-28] MEDS: REMEDY PHYTOPLEX Z-GUARD PASTE 113GM TUBE (FROM STOREROOM PRODUCT) TOP SCH ×4 (05:11→20:44)
[2021-03-28] MEDS: **hydrALAZINE** 50 MG TAB PO SCH ×5 (05:12→23:04)
[2021-03-28 06:24] VITALS: BP 128/60
[2021-03-28] MEDS: COMBIVENT RESPIMAT 100-20MCG INHALER 4GM INH SCH ×3 (07:38→19:46)
[2021-03-28] MEDS: MAGIC MOUTHWASH SUSPENSION BTL MT SCH ×3 (08:30→16:21)
[2021-03-28] MEDS: ASPIRIN 81MG ENTERIC TABLET PO SCH (08:30)
[2021-03-28] MEDS: QUEtiapine FUMARATE 12.5 MG HALF-TAB PO SCH (08:30)
[2021-03-28] MEDS: BACLOFEN 5MG PER 1/2 TABLET PO SCH ×3 (08:31→20:41)
[2021-03-28] MEDS: SINEMET 25-100 MG TAB PO SCH ×2 (08:31→20:43)
[2021-03-28] MEDS: SENOKOT S TAB PO SCH ×2 (08:31→20:41)
[2021-03-28] MEDS: FINASTERIDE 5 MG TAB PO SCH (08:31)
[2021-03-28] MEDS: guaiFENesin 200 MG TAB PO SCH ×3 (08:31→20:41)
[2021-03-28] MEDS: PANTOPRAZOLE 40MG TAB (PROTONIX) PO SCH (08:31)
[2021-03-28] MEDS: MIRALAX *UNIT DOSE* 17GM PACKET PO SCH (08:31)
[2021-03-28] MEDS: CLOPIDOGREL 75 MG TAB PO SCH (08:31)
[2021-03-28] MEDS: HYDROCORTISONE 1% CREAM 30 GM TOP SCH ×2 (08:33→20:44)
[2021-03-28] MEDS: VANICREAM MOISTURIZING SKIN CREAM 113GM TUBE TOP SCH ×2 (08:33→20:44)
[2021-03-28] MEDS: TRIAMCINOLONE ACET 0.1% CREAM 80 GM TOP SCH (08:34)
[2021-03-28] MEDS: LIDOCAINE 5% (LIDODERM) PATCH TD SCH (09:00)
[2021-03-28 14:00] VITALS: BP 138/67
[2021-03-28 20:00] VITALS: BP 147/72
[2021-03-28] MEDS: AMITRIPTYLINE 50 MG TAB PO SCH (20:42)
[2021-03-28] MEDS: ROSUVASTATIN 10 MG TAB (CRESTOR) PO SCH (20:42)
[2021-03-28] MEDS: EZETIMIBE 10MG TABLET (ZETIA) PO SCH (20:42)
[2021-03-28] MEDS: ACETAMINOPHEN TAB 650MG DOSE (2X325MG) PO PRN (20:42)
[2021-03-28] MEDS: **NOTE PATIENT COMMENT** MISC XX SCH (20:44)
[2021-03-29] MEDS: **hydrALAZINE** 50 MG TAB PO SCH ×3 (05:17→16:43)
[2021-03-29] MEDS: REMEDY PHYTOPLEX Z-GUARD PASTE 113GM TUBE (FROM STOREROOM PRODUCT) TOP SCH ×4 (05:17→20:38)
[2021-03-29 06:13] VITALS: BP 110/60
[2021-03-29] MEDS: COMBIVENT RESPIMAT 100-20MCG INHALER 4GM INH SCH ×3 (07:56→21:04)
[2021-03-29] MEDS: MAGIC MOUTHWASH SUSPENSION BTL MT SCH ×3 (08:10→16:48)
[2021-03-29] MEDS: HYDROCORTISONE 1% CREAM 30 GM TOP SCH ×2 (08:11→20:39)
[2021-03-29] MEDS: VANICREAM MOISTURIZING SKIN CREAM 113GM TUBE TOP SCH ×2 (08:12→20:39)
[2021-03-29] MEDS: TRIAMCINOLONE ACET 0.1% CREAM 80 GM TOP SCH (08:13)
[2021-03-29] MEDS: LIDOCAINE 5% (LIDODERM) PATCH TD SCH (08:13)
[2021-03-29] MEDS: MIRALAX *UNIT DOSE* 17GM PACKET PO SCH (08:13)
[2021-03-29] MEDS: QUEtiapine FUMARATE 12.5 MG HALF-TAB PO SCH (08:15)
[2021-03-29] MEDS: CLOPIDOGREL 75 MG TAB PO SCH (08:15)
[2021-03-29] MEDS: SINEMET 25-100 MG TAB PO SCH ×2 (08:15→20:37)
[2021-03-29] MEDS: ASPIRIN 81MG ENTERIC TABLET PO SCH (08:15)
[2021-03-29] MEDS: BACLOFEN 5MG PER 1/2 TABLET PO SCH ×3 (08:15→20:38)
[2021-03-29] MEDS: guaiFENesin 200 MG TAB PO SCH ×3 (08:15→20:37)
[2021-03-29] MEDS: FINASTERIDE 5 MG TAB PO SCH (08:15)
[2021-03-29] MEDS: PANTOPRAZOLE 40MG TAB (PROTONIX) PO SCH (08:15)
[2021-03-29] MEDS: SENOKOT S TAB PO SCH ×2 (08:15→20:37)
[2021-03-29 14:00] VITALS: BP 155/70
[2021-03-29] MEDS: ROSUVASTATIN 10 MG TAB (CRESTOR) PO SCH (20:37)
[2021-03-29] MEDS: AMITRIPTYLINE 50 MG TAB PO SCH (20:38)
[2021-03-29] MEDS: ACETAMINOPHEN TAB 650MG DOSE (2X325MG) PO PRN (20:38)
[2021-03-29] MEDS: EZETIMIBE 10MG TABLET (ZETIA) PO SCH (20:38)
[2021-03-29] MEDS: **NOTE PATIENT COMMENT** MISC XX SCH (20:39)
[2021-03-29 23:06] VITALS: BP 140/70
[2021-03-30] MEDS: REMEDY PHYTOPLEX Z-GUARD PASTE 113GM TUBE (FROM STOREROOM PRODUCT) TOP SCH ×4 (05:28→21:38)
[2021-03-30] MEDS: **hydrALAZINE** 50 MG TAB PO SCH ×4 (05:29→17:34)
[2021-03-30 06:28] VITALS: BP 142/40
[2021-03-30] MEDS: COMBIVENT RESPIMAT 100-20MCG INHALER 4GM INH SCH ×3 (08:00→20:00)
[2021-03-30] MEDS: TRIAMCINOLONE ACET 0.1% CREAM 80 GM TOP SCH (09:00)
[2021-03-30] MEDS: VANICREAM MOISTURIZING SKIN CREAM 113GM TUBE TOP SCH ×2 (09:00→21:38)
[2021-03-30] MEDS: HYDROCORTISONE 1% CREAM 30 GM TOP SCH (09:00)
[2021-03-30] MEDS: QUEtiapine FUMARATE 12.5 MG HALF-TAB PO SCH (09:39)
[2021-03-30] MEDS: PANTOPRAZOLE 40MG TAB (PROTONIX) PO SCH (09:39)
[2021-03-30] MEDS: guaiFENesin 200 MG TAB PO SCH ×3 (09:39→21:36)
[2021-03-30] MEDS: SENOKOT S TAB PO SCH ×2 (09:39→21:36)
[2021-03-30] MEDS: BACLOFEN 5MG PER 1/2 TABLET PO SCH ×3 (09:40→21:36)
[2021-03-30] MEDS: SINEMET 25-100 MG TAB PO SCH ×2 (09:40→21:36)
[2021-03-30] MEDS: CLOPIDOGREL 75 MG TAB PO SCH (09:40)
[2021-03-30] MEDS: FINASTERIDE 5 MG TAB PO SCH (09:40)
[2021-03-30] MEDS: ASPIRIN 81MG ENTERIC TABLET PO SCH (09:40)
[2021-03-30] MEDS: ACETAMINOPHEN TAB 650MG DOSE (2X325MG) PO PRN (09:40)
[2021-03-30] MEDS: MIRALAX *UNIT DOSE* 17GM PACKET PO SCH (09:41)
[2021-03-30] MEDS: LIDOCAINE 5% (LIDODERM) PATCH TD SCH (09:41)
[2021-03-30] MEDS: MAGIC MOUTHWASH SUSPENSION BTL MT SCH ×3 (09:42→17:34)
[2021-03-30 09:46] LABS: BASO % 0.4 % (0.0-1.0); EOS # 0.2 10^3/uL (0.0-0.5); HEMATOCRIT 32.7 % (42.0-52.0); HEMOGLOBIN 10.4 g/dl (13.5-17.5); LYMPH % 18.5 % (24.0-44.0); MEAN CORPUSCULAR HEMOGLOBIN 30.9 pg (27.0-33.0); MEAN CORPUSCULAR HGB CONC 31.8 g/dl (32.0-36.5); MONO # 0.6 10^3/uL (0.0-0.8); MONO % 10.5 % (2.0-8.0); NEUTROPHILS # 3.6 10^3/uL (1.5-8.5); NEUTROPHILS % 67.2 % (36.0-66.0); PLATELET COUNT, AUTOMATED 278 10^3/uL (150-450); RED BLOOD COUNT 3.37 10^6/uL (4.30-6.10); WHITE BLOOD COUNT 5.3 10^3/uL (4.0-10.0)
[2021-03-30 10:14] LABS: BLOOD UREA NITROGEN 19 MG/DL (7-18); CALCIUM LEVEL 9.3 MG/DL (8.8-10.2); CARBON DIOXIDE LEVEL 28 MEQ/L (21-32); CHLORIDE LEVEL 105 MEQ/L (98-107); CREATININE FOR GFR 1.01 MG/DL (0.70-1.30); GLOMERULAR FILTRATION RATE > 60.0 (>42); GLUCOSE, FASTING 92 MG/DL (70-100); POTASSIUM SERUM 4.4 MEQ/L (3.5-5.1); SODIUM LEVEL 139 MEQ/L (136-145)
--- NOTE | 2021-03-30 12:31 | IPNPDOC ---
PM&R Progress Note DATE OF SERVICE: Mar 30, 2021 Reactor Technician Progress Note Subjective: Patient seen in his room with he step-daughter. He has no complaints today. REVIEW OF SYSTEMS: The following is a completed review of systems and has been reviewed. Review of systems otherwise unremarkable. PAIN: Patient self reports no pain EYES: No recent vision changes EARS, NOSE, & THROAT: + dysphagia, +[place] CARDIOVASCULAR: Denies chest pain or palpitations PULMONARY: Denies shortness of breath GASTROINTESTINAL: Denies constipation/diarrhea GENITOURINARY: denies dysuria, +hematuria (resolved) MUSCULOSKELETAL: left sided paresis NEUROLOGICAL:+ left sided paresis and parkinsons, +dysarthric HEMATOLOGICAL: denies easy bruising SKIN:+ facial rash PSYCHIATRIC: Unremarkable All other review of systems found to be negative. PHYSICAL EXAMINATION: VITAL SIGNS: Please see below. GENERAL: Pleasant and cooperative. No acute distress. HEENT: PERRL. Extraocular movements intact. Clear conjunctiva, +left facial droop CARDIOVASCULAR: Regular rate and rhythm. No murmurs, rubs, or gallops LUNGS:CTA, No wheezes. No rhonchi ABDOMEN: Soft, nontender, nondistended. Positive bowel sounds. Normal active bowel sounds NEUROLOGICAL: Alert and oriented times three. Cranial nerves II through XII grossly intact. Sensation grossly intact, +dysarthria LUE wrist elbow and wrist flexion tone EXTREMITIES: 5/5 RUE, 3+/5 LUE 5\5 strength right lower extremity. 5-/5 strength in left lower extremity. SKIN: + silver plaque lesions on face (resolved) LABORATORY DATA: Please see below. ASSESSMENT:80-year-old M with past medical history of HTN, parkinsons, TIA and CVA who presents status post right external capsule/pillai radiata lacunar stroke PLAN: 1. 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 Neuro- hx of TIA and CVA with new right external capsule/pillai radiata lacunar infarct with CTA showing severe right vertebral artery stenosis cont ASA, plavix and statin -03-11-21 repeat CTH showing no new hemorrhage, MRI brain showing new right basal ganglia ischemic infarct- case discussed with Dr. Bell who, recs appreciated, s/p permissive HTN -hx of parkinsons cont sinemet -LUE and IGNACIO ornelas started on baclofen -cont seroqeul as patient has been agitated during therapy sessions 3. Cardiac- hx of HTn- cont BP meds -HLD cont statin, zetia -chronic diastolic CHF, poor po intake at this time, s/p IVF, lungs CTA 4. Resp- aspiration precautions, oral care, monitor for infection -CT chest ordered to r/o infiltrate on 03-11-21 which was negative, given new stroke and worsening dysphagia with reported non-productive cough on 03-12-21, with f/u CXR showing new right lung base linear density, patient still with no leukocytosis or fever but given high risk for aspiration and mild new cough s/p course of Levaquin, cont to monitor vitals and labs -combivent and guaifenesin ordered 5. - cont proscar and flomax for BPH, beckham placed due to frequent ICs in setting of retention with hematuria- urology assisted and recommended bladder irrigation- heparin d/c'd- 03-23-21 episode of hematuria with clotting which has resolved, patient's vitals cont to be stable will cont to monitor Hgb/Hct-stable -Ucx + for yeast >100k and E faecalis- Dr. Bran consulted and patient started and completed course of fluconazole, s/p course of levaquin for PNA which covers E faecalis 6. Pain- tylenol prn 7. DVT ppx- heparin d/c'd due to hematuria- on ASa and plavix 8. GI ppx- protonix 9. Skin- turn q2, zinc oxide to sacrum 10. Psych- cont elavil 11. Derm- facial psoriasis cont steroid cream- improving 12. Dispo- 04-06-21 to home with hospice- patient is still participating in therapy and will benefit from ongoing family training Allergies Coded Allergies: No Known Allergies (Unverified , 09/29/18) Vital Signs Vital Signs Date Time Temp Pulse Resp B/P (MAP) Pulse Ox O2 Delivery O2 Flow Rate FiO2 03/30/21 06:28 97.1 68 18 142/40 (74) 96 Room Air Laboratory Data CBC/BMP Laboratory Tests 03/30/21 08:59 Labs 24H Laboratory Tests 2 03/30/21 08:59: Immature Granulocyte % (Auto) 0.4, Neutrophils (%) (Auto) 67.2H, Lymphocytes (%) (Auto) 18.5L, Monocytes (%) (Auto) 10.5H, Eosinophils (%) (Auto) 3.0, Basophils (%) (Auto) 0.4, Neutrophils # (Auto) 3.6, Lymphocytes # (Auto) 1.0L, Monocytes # (Auto) 0.6, Eosinophils # (Auto) 0.2, Basophils # (Auto) 0.0, Nucleated Red Blood Cells % (auto) 0.0, Anion Gap 6L, Glomerular Filtration Rate > 60.0, Calcium Level 9.3 Current Medications Current Medications Current Medications Medications (Trade) Dose Ordered Sig/Atiya Route PRN Reason Start Time Stop Time Status Last Admin Dose Admin Acetaminophen (Tylenol Tab) 650 mg Q4HP PRN PO fever/MILD PAIN (PS 1-4) 03/10/21 15:30 03/30/21 09:40 Albuterol/ Ipratropium (Combivent Respimat 100-20mcg) 1 puff RTID INH 03/12/21 20:00 03/29/21 21:04 Amitriptyline HCl (Elavil) 50 mg QHS PO 03/10/21 21:00 03/29/21 20:38 Amlodipine Besylate (Norvasc) 10 mg QHS PO 03/10/21 21:00 03/11/21 13:05 DC 03/10/21 20:34 Amlodipine Besylate (Norvasc) 10 mg QHS PO 03/13/21 21:00 03/29/21 20:36 Aspirin (Ecotrin) 81 mg DAILY PO 03/11/21 09:00 03/30/21 09:40 Baclofen (Lioresal) 5 mg BID PO 03/12/21 21:00 03/16/21 14:59 DC 03/16/21 08:58 Baclofen (Lioresal) 5 mg TID PO 03/16/21 16:00 03/30/21 09:40 Carbidopa/Levodopa (Sinemet 25/100) 2 tab BID PO 03/10/21 21:00 03/30/21 09:40 Clopidogrel Bisulfate (PLAVix) 75 mg DAILY PO 03/11/21 09:00 03/30/21 09:40 Dextrose/Sodium Chloride 1,000 ml @ 60 mls/hr [id number] IV 03/16/21 10:15 03/18/21 10:54 DC 03/17/21 17:26 Dextrose/Water 1,000 ml @ 60 mls/hr [id number] IV 03/11/21 11:15 03/13/21 14:59 DC 03/13/21 12:25 Emollient Cream (Vanicream) apply to entire face af... BID TOP 03/12/21 09:00 03/30/21 09:00 EZETIMIBE (Zetia) 10 mg QHS PO 03/10/21 21:00 03/29/21 20:38 Finasteride (Proscar) 5 mg DAILY PO 03/11/21 09:00 03/30/21 09:40 Fluconazole (Diflucan Tablet) 200 mg DAILY PO 03/17/21 09:00 03/27/21 08:59 DC 03/26/21 09:22 Guaifenesin (Robitussin Tab) 400 mg TID PO 03/12/21 16:00 03/30/21 09:39 Heparin Sodium (Porcine) (Heparin) 5,000 units Q12H SC 03/10/21 21:00 03/17/21 09:54 DC 03/17/21 09:47 Home Med (Home Med List Complete!) ASDIRECTED XX 03/17/21 15:20 03/17/21 15:27 DC Hydralazine HCl (Apresoline) 25 mg Q6H PRN PO sbp >140 03/13/21 14:50 03/17/21 09:52 DC Hydralazine HCl (Apresoline) 50 mg Q6H PO 03/17/21 12:00 03/30/21 05:29 Hydrocortisone (Hydrocortisone 1% Cream) apply to areas of plaques... BID TOP 03/12/21 09:00 03/30/21 09:00 Levofloxacin (Levaquin) 250 mg DAILY@06 PO 03/14/21 06:00 03/13/21 15:36 DC Levofloxacin (Levaquin) 750 mg Q48H PO 03/15/21 06:00 03/21/21 16:12 DC 03/21/21 05:06 Lidocaine (Lidoderm Patch) 1 patch DAILY TD 03/26/21 09:00 03/30/21 09:41 Lidocaine/ Diphenhydr/Alum/ Mg/Simeth (Magic Mouthwash) 5ML-use swab to rinse ... AC MT 03/10/21 17:30 03/30/21 09:42 Losartan Potassium (Cozaar) 12.5 mg DAILY PO 03/13/21 09:00 03/17/21 09:52 DC 03/17/21 09:50 Losartan Potassium (Cozaar) 25 mg DAILY PO 03/11/21 09:00 03/11/21 13:05 DC 03/11/21 09:04 Non-Formulary Medication ( See Comment Field Below ) REMOVE LIDODERM PATCH DAILY@21 XX 03/26/21 21:00 03/29/21 20:39 Pantoprazole Sodium (Protonix) 40 mg DAILY PO 03/11/21 09:00 03/30/21 09:39 Polyethylene Glycol (Miralax) 1 pkt DAILY PO 03/16/21 09:00 03/30/21 09:41 Quetiapine Fumarate (SEROquel) 12.5 mg DAILY@0800 PO 03/24/21 08:00 03/30/21 09:39 Rosuvastatin Calcium (Crestor) 40 mg QHS PO 03/10/21 21:00 03/29/21 20:37 Senna/Docusate Sodium (Senokot S) 2 tab BID PO 03/10/21 21:00 03/30/21 09:39 Tamsulosin HCl (Flomax) 0.8 mg DAILY PO 03/11/21 09:00 03/13/21 22:56 DC 03/13/21 10:08 Triamcinolone Acetonide (Kenalog 0.1% Cream) apply to scalp DAILY TOP 03/17/21 09:00 03/30/21 09:00 JOAQUIN SARABIA MD Mar 30, 2021 12:31
[2021-03-30 14:00] VITALS: BP 158/60
[2021-03-30 20:00] VITALS: BP 136/64
[2021-03-30] MEDS: AMITRIPTYLINE 50 MG TAB PO SCH (21:36)
[2021-03-30] MEDS: EZETIMIBE 10MG TABLET (ZETIA) PO SCH (21:36)
[2021-03-30] MEDS: ROSUVASTATIN 10 MG TAB (CRESTOR) PO SCH (21:36)
[2021-03-30] MEDS: **NOTE PATIENT COMMENT** MISC XX SCH (21:38)
[2021-03-31] MEDS: **hydrALAZINE** 50 MG TAB PO SCH ×4 (00:44→17:44)
[2021-03-31] MEDS: REMEDY PHYTOPLEX Z-GUARD PASTE 113GM TUBE (FROM STOREROOM PRODUCT) TOP SCH ×4 (03:18→20:54)
[2021-03-31 06:00] VITALS: BP 138/64
[2021-03-31] MEDS: COMBIVENT RESPIMAT 100-20MCG INHALER 4GM INH SCH ×3 (08:00→20:00)
[2021-03-31] MEDS: CLOPIDOGREL 75 MG TAB PO SCH (10:18)
[2021-03-31] MEDS: ASPIRIN 81MG ENTERIC TABLET PO SCH (10:18)
[2021-03-31] MEDS: guaiFENesin 200 MG TAB PO SCH ×3 (10:18→20:52)
[2021-03-31] MEDS: SENOKOT S TAB PO SCH ×2 (10:18→20:52)
[2021-03-31] MEDS: SINEMET 25-100 MG TAB PO SCH ×2 (10:18→20:54)
[2021-03-31] MEDS: BACLOFEN 5MG PER 1/2 TABLET PO SCH ×3 (10:18→20:52)
[2021-03-31] MEDS: QUEtiapine FUMARATE 12.5 MG HALF-TAB PO SCH (10:19)
[2021-03-31] MEDS: MIRALAX *UNIT DOSE* 17GM PACKET PO SCH (10:19)
[2021-03-31] MEDS: FINASTERIDE 5 MG TAB PO SCH (10:19)
[2021-03-31] MEDS: PANTOPRAZOLE 40MG TAB (PROTONIX) PO SCH (10:19)
[2021-03-31] MEDS: ACETAMINOPHEN TAB 650MG DOSE (2X325MG) PO PRN (10:19)
[2021-03-31] MEDS: LIDOCAINE 5% (LIDODERM) PATCH TD SCH (10:20)
[2021-03-31] MEDS: MAGIC MOUTHWASH SUSPENSION BTL MT SCH ×3 (10:20→17:43)
[2021-03-31] MEDS: VANICREAM MOISTURIZING SKIN CREAM 113GM TUBE TOP SCH ×2 (10:21→20:54)
[2021-03-31] MEDS: TRIAMCINOLONE ACET 0.1% CREAM 80 GM TOP SCH (10:22)
[2021-03-31 14:00] VITALS: BP 148/84
--- NOTE | 2021-03-31 15:26 | IPNPDOC ---
PM&R Progress Note DATE OF SERVICE: Mar 31, 2021 Logging Equipment Operator Progress Note Subjective: Patient asking for a suppository as he feels constipated. REVIEW OF SYSTEMS: The following is a completed review of systems and has been reviewed. Review of systems otherwise unremarkable. PAIN: Patient self reports no pain EYES: No recent vision changes EARS, NOSE, & THROAT: + dysphagia, +[place] CARDIOVASCULAR: Denies chest pain or palpitations PULMONARY: Denies shortness of breath GASTROINTESTINAL: +constipation GENITOURINARY: denies dysuria, +hematuria (resolved) MUSCULOSKELETAL: left sided paresis NEUROLOGICAL:+ left sided paresis and parkinsons, +dysarthric HEMATOLOGICAL: denies easy bruising SKIN:+ facial rash PSYCHIATRIC: Unremarkable All other review of systems found to be negative. PHYSICAL EXAMINATION: VITAL SIGNS: Please see below. GENERAL: Pleasant and cooperative. No acute distress. HEENT: PERRL. Extraocular movements intact. Clear conjunctiva, +left facial droop CARDIOVASCULAR: Regular rate and rhythm. No murmurs, rubs, or gallops LUNGS:CTA, No wheezes. No rhonchi ABDOMEN: Soft, nontender, nondistended. Positive bowel sounds. Normal active bowel sounds NEUROLOGICAL: Alert and oriented times three. Cranial nerves II through XII grossly intact. Sensation grossly intact, +dysarthria LUE wrist elbow and wrist flexion tone EXTREMITIES: 5/5 RUE, 3+/5 LUE 5\5 strength right lower extremity. 5-/5 strength in left lower extremity. SKIN: + silver plaque lesions on face (resolved) LABORATORY DATA: Please see below. ASSESSMENT:80-year-old M with past medical history of HTN, parkinsons, TIA and CVA who presents status post right external capsule/pillai radiata lacunar stroke PLAN: 1. 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 Neuro- hx of TIA and CVA with new right external capsule/pillai radiata lacunar infarct with CTA showing severe right vertebral artery stenosis cont A SA, plavix and statin -03-11-21 repeat CTH showing no new hemorrhage, MRI brain showing new right basal ganglia ischemic infarct- case discussed with Dr. Bell who, recs appreciated, s/p permissive HTN -hx of parkinsons cont sinemet -LUE and IGNACIO ornelas started on baclofen -cont seroqeul as patient has been agitated during therapy sessions 3. Cardiac- hx of HTn- cont BP meds -HLD cont statin, zetia -chronic diastolic CHF, poor po intake at this time, s/p IVF, lungs CTA 4. Resp- aspiration precautions, oral care, monitor for infection -CT chest ordered to r/o infiltrate on 03-11-21 which was negative, given new stroke and worsening dysphagia with reported non-productive cough on 03-12-21, with f/u CXR showing new right lung base linear density, patient still with no leukocytosis or fever but given high risk for aspiration and mild new cough s/p course of Levaquin, cont to monitor vitals and labs -combivent and guaifenesin ordered 5. - cont proscar and flomax for BPH, beckham placed due to frequent ICs in setting of retention with hematuria- urology assisted and recommended bladder irrigation- heparin d/c'd- 03-23-21 episode of hematuria with clotting which has resolved, patient's vitals cont to be stable will cont to monitor Hgb/Hct-stable -Ucx + for yeast >100k and E faecalis- Dr. Bran consulted and patient started and completed course of fluconazole, s/p course of levaquin for PNA which covers E faecalis 6. Pain- tylenol prn 7. DVT ppx- heparin d/c'd due to hematuria- on ASa and plavix 8. GI ppx- protonix 9. Skin- turn q2, zinc oxide to sacrum 10. Psych- cont elavil 11. Derm- facial psoriasis cont steroid cream- improving 12. Dispo- 04-06-21 to home with hospice- patient is still participating in therapy and will benefit from ongoing family training Allergies Coded Allergies: No Known Allergies (Unverified , 09/29/18) Vital Signs Vital Signs Date Time Temp Pulse Resp B/P (MAP) Pulse Ox O2 Delivery O2 Flow Rate FiO2 03/31/21 14:00 97.9 60 16 148/84 (105) 96 Room Air Current Medications Current Medications Current Medications Medications (Trade) Dose Ordered Sig/Atiya Route PRN Reason Start Time Stop Time Status Last Admin Dose Admin Acetaminophen (Tylenol Tab) 650 mg Q4HP PRN PO fever/MILD PAIN (PS 1-4) 03/10/21 15:30 03/31/21 10:19 Albuterol/ Ipratropium (Combivent Respimat 100-20mcg) 1 puff RTID INH 03/12/21 20:00 03/31/21 13:14 Amitriptyline HCl (Elavil) 50 mg QHS PO 03/10/21 21:00 03/30/21 21:36 Amlodipine Besylate (Norvasc) 10 mg QHS PO 03/10/21 21:00 03/11/21 13:05 DC 03/10/21 20:34 Amlodipine Besylate (Norvasc) 10 mg QHS PO 03/13/21 21:00 03/30/21 21:38 Aspirin (Ecotrin) 81 mg DAILY PO 03/11/21 09:00 03/31/21 10:18 Baclofen (Lioresal) 5 mg BID PO 03/12/21 21:00 03/16/21 14:59 DC 03/16/21 08:58 Baclofen (Lioresal) 5 mg TID PO 03/16/21 16:00 03/31/21 10:18 Carbidopa/Levodopa (Sinemet 25/100) 2 tab BID PO 03/10/21 21:00 03/31/21 10:18 Clopidogrel Bisulfate (PLAVix) 75 mg DAILY PO 03/11/21 09:00 03/31/21 10:18 Dextrose/Sodium Chloride 1,000 ml @ 60 mls/hr [id number] IV 03/16/21 10:15 03/18/21 10:54 DC 03/17/21 17:26 Dextrose/Water 1,000 ml @ 60 mls/hr [id number] IV 03/11/21 11:15 03/13/21 14:59 DC 03/13/21 12:25 Emollient Cream (Vanicream) apply to entire face af... BID TOP 03/12/21 09:00 03/31/21 10:21 EZETIMIBE (Zetia) 10 mg QHS PO 03/10/21 21:00 03/30/21 21:36 Finasteride (Proscar) 5 mg DAILY PO 03/11/21 09:00 03/31/21 10:19 Fluconazole (Diflucan Tablet) 200 mg DAILY PO 03/17/21 09:00 03/27/21 08:59 DC 03/26/21 09:22 Guaifenesin (Robitussin Tab) 400 mg TID PO 03/12/21 16:00 03/31/21 10:18 Heparin Sodium (Porcine) (Heparin) 5,000 units Q12H SC 03/10/21 21:00 03/17/21 09:54 DC 03/17/21 09:47 Home Med (Home Med List Complete!) ASDIRECTED XX 03/17/21 15:20 03/17/21 15:27 DC Hydralazine HCl (Apresoline) 25 mg Q6H PRN PO sbp >140 03/13/21 14:50 03/17/21 09:52 DC Hydralazine HCl (Apresoline) 50 mg Q6H PO 03/17/21 12:00 03/31/21 13:07 Hydrocortisone (Hydrocortisone 1% Cream) apply to areas of plaques... BID TOP 03/12/21 09:00 03/30/21 14:06 DC 03/30/21 09:00 Levofloxacin (Levaquin) 250 mg DAILY@06 PO 03/14/21 06:00 03/13/21 15:36 DC Levofloxacin (Levaquin) 750 mg Q48H PO 03/15/21 06:00 03/21/21 16:12 DC 03/21/21 05:06 Lidocaine (Lidoderm Patch) 1 patch DAILY TD 03/26/21 09:00 03/31/21 10:20 Lidocaine/ Diphenhydr/Alum/ Mg/Simeth (Magic Mouthwash) 5ML-use swab to rinse ... AC MT 03/10/21 17:30 03/31/21 13:07 Losartan Potassium (Cozaar) 12.5 mg DAILY PO 03/13/21 09:00 03/17/21 09:52 DC 03/17/21 09:50 Losartan Potassium (Cozaar) 25 mg DAILY PO 03/11/21 09:00 03/11/21 13:05 DC 03/11/21 09:04 Non-Formulary Medication ( See Comment Field Below ) REMOVE LIDODERM PATCH DAILY@21 XX 10/14/21 21:00 03/30/21 21:38 Pantoprazole Sodium (Protonix) 40 mg DAILY PO 03/11/21 09:00 03/31/21 10:19 Polyethylene Glycol (Miralax) 1 pkt DAILY PO 03/16/21 09:00 03/31/21 10:19 Quetiapine Fumarate (SEROquel) 12.5 mg DAILY@0800 PO 03/24/21 08:00 03/31/21 10:19 Rosuvastatin Calcium (Crestor) 40 mg QHS PO 03/10/21 21:00 03/30/21 21:36 Senna/Docusate Sodium (Senokot S) 2 tab BID PO 03/10/21 21:00 03/31/21 10:18 Tamsulosin HCl (Flomax) 0.8 mg DAILY PO 03/11/21 09:00 03/13/21 22:56 DC 03/13/21 10:08 Triamcinolone Acetonide (Kenalog 0.1% Cream) apply to scalp DAILY TOP 03/17/21 09:00 03/31/21 10:22 JOAQUIN SARABIA MD Mar 31, 2021 15:26
[2021-03-31] MEDS ORDERED: BISACODYL 10 MG SUPP PR ONE (19:00)
[2021-03-31 20:00] VITALS: BP 127/75
[2021-03-31] MEDS: EZETIMIBE 10MG TABLET (ZETIA) PO SCH (20:52)
[2021-03-31] MEDS: ROSUVASTATIN 10 MG TAB (CRESTOR) PO SCH (20:53)
[2021-03-31] MEDS: AMITRIPTYLINE 50 MG TAB PO SCH (20:53)
[2021-03-31] MEDS: **NOTE PATIENT COMMENT** MISC XX SCH (20:54)
[2021-04-01] MEDS: **hydrALAZINE** 50 MG TAB PO SCH ×4 (00:23→17:20)
[2021-04-01] MEDS: REMEDY PHYTOPLEX Z-GUARD PASTE 113GM TUBE (FROM STOREROOM PRODUCT) TOP SCH ×4 (03:13→21:48)
[2021-04-01 06:00] VITALS: BP 122/62
[2021-04-01 06:23] LABS: BASO % 0.2 % (0.0-1.0); EOS # 0.1 10^3/uL (0.0-0.5); EOS % 1.5 % (0.0-3.0); HEMATOCRIT 33.5 % (42.0-52.0); HEMOGLOBIN 10.7 g/dl (13.5-17.5); LYMPH # 0.9 10^3/uL (1.5-5.0); LYMPH % 10.8 % (24.0-44.0); MEAN CORPUSCULAR HEMOGLOBIN 31.2 pg (27.0-33.0); MEAN CORPUSCULAR HGB CONC 31.9 g/dl (32.0-36.5); MEAN CORPUSCULAR VOLUME 97.7 fl (80.0-96.0); MONO % 11.1 % (2.0-8.0); NEUTROPHILS # 6.6 10^3/uL (1.5-8.5); NEUTROPHILS % 76.2 % (36.0-66.0); PLATELET COUNT, AUTOMATED 263 10^3/uL (150-450); RED BLOOD COUNT 3.43 10^6/uL (4.30-6.10); WHITE BLOOD COUNT 8.7 10^3/uL (4.0-10.0)
[2021-04-01 06:38] LABS: BLOOD UREA NITROGEN 23 MG/DL (7-18); CALCIUM LEVEL 9.1 MG/DL (8.8-10.2); CARBON DIOXIDE LEVEL 27 MEQ/L (21-32); CHLORIDE LEVEL 105 MEQ/L (98-107); CREATININE FOR GFR 1.13 MG/DL (0.70-1.30); GLOMERULAR FILTRATION RATE > 60.0 (>42); GLUCOSE, FASTING 110 MG/DL (70-100); POTASSIUM SERUM 4.4 MEQ/L (3.5-5.1); SODIUM LEVEL 139 MEQ/L (136-145)
[2021-04-01] MEDS: MAGIC MOUTHWASH SUSPENSION BTL MT SCH ×3 (07:30→17:18)
[2021-04-01] MEDS: CLOPIDOGREL 75 MG TAB PO SCH (08:05)
[2021-04-01] MEDS: QUEtiapine FUMARATE 12.5 MG HALF-TAB PO SCH (08:05)
[2021-04-01] MEDS: BACLOFEN 5MG PER 1/2 TABLET PO SCH ×3 (08:06→21:46)
[2021-04-01] MEDS: FINASTERIDE 5 MG TAB PO SCH (08:06)
[2021-04-01] MEDS: guaiFENesin 200 MG TAB PO SCH ×3 (08:06→21:47)
[2021-04-01] MEDS: MIRALAX *UNIT DOSE* 17GM PACKET PO SCH (08:06)
[2021-04-01] MEDS: SINEMET 25-100 MG TAB PO SCH ×2 (08:06→21:47)
[2021-04-01] MEDS: ASPIRIN 81MG ENTERIC TABLET PO SCH (08:06)
[2021-04-01] MEDS: PANTOPRAZOLE 40MG TAB (PROTONIX) PO SCH (08:06)
[2021-04-01] MEDS: VANICREAM MOISTURIZING SKIN CREAM 113GM TUBE TOP SCH ×2 (08:07→21:48)
[2021-04-01] MEDS: TRIAMCINOLONE ACET 0.1% CREAM 80 GM TOP SCH (08:07)
[2021-04-01] MEDS: SENOKOT S TAB PO SCH ×2 (08:07→21:47)
[2021-04-01] MEDS: COMBIVENT RESPIMAT 100-20MCG INHALER 4GM INH SCH ×3 (08:32→21:10)
--- NOTE | 2021-04-01 11:04 | IPNPDOC ---
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 REVIEW OF SYSTEMS: The following is a completed review of systems and has been reviewed. Review of systems otherwise unremarkable. PAIN: Patient self reports no pain EYES: No recent vision changes EARS, NOSE, & THROAT: + dysphagia, +[place] CARDIOVASCULAR: Denies chest pain or palpitations PULMONARY: Denies shortness of breath GASTROINTESTINAL: +constipation GENITOURINARY: denies dysuria, +hematuria (resolved) MUSCULOSKELETAL: left sided paresis NEUROLOGICAL:+ left sided paresis and parkinsons, +dysarthric HEMATOLOGICAL: denies easy bruising SKIN:+ facial rash PSYCHIATRIC: Unremarkable All other review of systems found to be negative. PHYSICAL EXAMINATION: VITAL SIGNS: Please see below. GENERAL: Pleasant and cooperative. No acute distress. HEENT: PERRL. Extraocular movements intact. Clear conjunctiva, +left facial droop CARDIOVASCULAR: Regular rate and rhythm. No murmurs, rubs, or gallops LUNGS:CTA, No wheezes. No rhonchi ABDOMEN: Soft, nontender, nondistended. Positive bowel sounds. Normal active bowel sounds NEUROLOGICAL: Alert and oriented times three. Cranial nerves II through XII grossly intact. Sensation grossly intact, +dysarthria LUE wrist elbow and wrist flexion tone EXTREMITIES: 5/5 RUE, 3+/5 LUE 5\5 strength right lower extremity. 5-/5 strength in left lower extremity. SKIN: + silver plaque lesions on face (resolved) LABORATORY DATA: Please see below. ASSESSMENT:80-year-old M with past medical history of HTN, parkinsons, TIA and CVA who presents status post right external capsule/pillai radiata lacunar stroke PLAN: 1. 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 Neuro- hx of TIA and CVA with new right external capsule/pillai radiata lacunar infarct with CTA showing severe right vertebral artery stenosis cont ASA, plavix and statin -03-11-21 repeat CTH showing no new hemorrhage, MRI brain showing new right basal ganglia ischemic infarct- case discussed with Dr. Bell who, recs appreciated, s/p permissive HTN -hx of parkinsons cont sinemet -LUE and IGNACIO ornelas started on baclofen -cont seroqeul as patient has been agitated during therapy sessions 3. Cardiac- hx of HTn- cont BP meds -HLD cont statin, zetia -chronic diastolic CHF, poor po intake at this time, s/p IVF, lungs CTA 4. Resp- aspiration precautions, oral care, monitor for infection -CT chest ordered to r/o infiltrate on 03-11-21 which was negative, given new stroke and worsening dysphagia with reported non-productive cough on 03-12-21, with f/u CXR showing new right lung base linear density, patient still with no leukocytosis or fever but given high risk for aspiration and mild new cough s/p course of Levaquin, cont to monitor vitals and labs -combivent and guaifenesin ordered 5. - cont proscar and flomax for BPH, beckham placed due to frequent ICs in setting of retention with hematuria- urology assisted and recommended bladder irrigation- heparin d/c'd- 03-23-21 episode of hematuria with clotting which has resolved, patient's vitals cont to be stable will cont to monitor Hgb/Hct-stable -Ucx + for yeast >100k and E faecalis- Dr. Bran consulted and patient started and completed course of fluconazole, s/p course of levaquin for PNA which covers E faecalis 6. Pain- tylenol prn 7. DVT ppx- heparin d/c'd due to hematuria- on ASa and plavix 8. GI ppx- protonix 9. Skin- turn q2, zinc oxide to sacrum 10. Psych- cont elavil 11. Derm- facial psoriasis cont steroid cream- improving 12. Dispo- [facility]. He is high risk aspiration and high risk for recurrent stroke with life expectancy of < 6months. Allergies Coded Allergies: No Known Allergies (Unverified , 09/29/18) Vital Signs Vital Signs Date Time Temp Pulse Resp B/P (MAP) Pulse Ox O2 Delivery O2 Flow Rate FiO2 04/01/21 06:00 98.1 74 18 122/62 (82) 94 Room Air Laboratory Data CBC/BMP Laboratory Tests 04/01/21 05:58 Labs 24H Laboratory Tests 2 04/01/21 05:58: Immature Granulocyte % (Auto) 0.2, Neutrophils (%) (Auto) 76.2H, Lymphocytes (%) (Auto) 10.8L, Monocytes (%) (Auto) 11.1H, Eosinophils (%) (Auto) 1.5, Basophils (%) (Auto) 0.2, Neutrophils # (Auto) 6.6, Lymphocytes # (Auto) 0.9L, Monocytes # (Auto) 1.0H, Eosinophils # (Auto) 0.1, Basophils # (Auto) 0.0, Nucleated Red Blood Cells % (auto) 0.0, Anion Gap 7L, Glomerular Filtration Rate > 60.0, Calcium Level 9.1 Current Medications Current Medications Current Medications Medications (Trade) Dose Ordered Sig/Atiya Route PRN Reason Start Time Stop Time Status Last Admin Dose Admin Acetaminophen (Tylenol Tab) 650 mg Q4HP PRN PO fever/MILD PAIN (PS 1-4) 03/10/21 15:30 03/31/21 10:19 Albuterol/ Ipratropium (Combivent Respimat 100-20mcg) 1 puff RTID INH 03/12/21 20:00 04/01/21 08:32 Amitriptyline HCl (Elavil) 50 mg QHS PO 03/10/21 21:00 03/31/21 20:53 Amlodipine Besylate (Norvasc) 10 mg QHS PO 03/10/21 21:00 03/11/21 13:05 DC 03/10/21 20:34 Amlodipine Besylate (Norvasc) 10 mg QHS PO 03/13/21 21:00 03/31/21 20:53 Aspirin (Ecotrin) 81 mg DAILY PO 03/11/21 09:00 04/01/21 08:06 Baclofen (Lioresal) 5 mg BID PO 03/12/21 21:00 03/16/21 14:59 DC 03/16/21 08:58 Baclofen (Lioresal) 5 mg TID PO 03/16/21 16:00 04/01/21 08:06 Carbidopa/Levodopa (Sinemet 25/100) 2 tab BID PO 03/10/21 21:00 04/01/21 08:06 Clopidogrel Bisulfate (PLAVix) 75 mg DAILY PO 03/11/21 09:00 04/01/21 08:05 Dextrose/Sodium Chloride 1,000 ml @ 60 mls/hr [id number] IV 03/16/21 10:15 03/18/21 10:54 DC 03/17/21 17:26 Dextrose/Water 1,000 ml @ 60 mls/hr [id number] IV 03/11/21 11:15 03/13/21 14:59 DC 03/13/21 12:25 Emollient Cream (Vanicream) apply to entire face af... BID TOP 03/12/21 09:00 03/31/21 20:54 EZETIMIBE (Zetia) 10 mg QHS PO 03/10/21 21:00 03/31/21 20:52 Finasteride (Proscar) 5 mg DAILY PO 03/11/21 09:00 04/01/21 08:06 Fluconazole (Diflucan Tablet) 200 mg DAILY PO 03/17/21 09:00 03/27/21 08:59 DC 03/26/21 09:22 Guaifenesin (Robitussin Tab) 400 mg TID PO 03/12/21 16:00 04/01/21 08:06 Heparin Sodium (Porcine) (Heparin) 5,000 units Q12H SC 03/10/21 21:00 03/17/21 09:54 DC 03/17/21 09:47 Home Med (Home Med List Complete!) ASDIRECTED XX 03/17/21 15:20 03/17/21 15:27 DC Hydralazine HCl (Apresoline) 25 mg Q6H PRN PO sbp >140 03/13/21 14:50 03/17/21 09:52 DC Hydralazine HCl (Apresoline) 50 mg Q6H PO 03/17/21 12:00 04/01/21 05:11 Hydrocortisone (Hydrocortisone 1% Cream) apply to areas of plaques... BID TOP 03/12/21 09:00 03/30/21 14:06 DC 03/30/21 09:00 Levofloxacin (Levaquin) 250 mg DAILY@06 PO 03/14/21 06:00 03/13/21 15:36 DC Levofloxacin (Levaquin) 750 mg Q48H PO 03/15/21 06:00 03/21/21 16:12 DC 03/21/21 05:06 Lidocaine (Lidoderm Patch) 1 patch DAILY TD 03/26/21 09:00 03/31/21 10:20 Lidocaine/ Diphenhydr/Alum/ Mg/Simeth (Magic Mouthwash) 5ML-use swab to rinse ... AC MT 03/10/21 17:30 03/31/21 17:43 Losartan Potassium (Cozaar) 12.5 mg DAILY PO 03/13/21 09:00 03/17/21 09:52 DC 03/17/21 09:50 Losartan Potassium (Cozaar) 25 mg DAILY PO 03/11/21 09:00 03/11/21 13:05 DC 03/11/21 09:04 Non-Formulary Medication ( See Comment Field Below ) REMOVE LIDODERM PATCH DAILY@21 XX 03/26/21 21:00 03/31/21 20:54 Pantoprazole Sodium (Protonix) 40 mg DAILY PO 03/11/21 09:00 04/01/21 08:06 Polyethylene Glycol (Miralax) 1 pkt DAILY PO 03/16/21 09:00 04/01/21 08:06 Quetiapine Fumarate (SEROquel) 12.5 mg DAILY@0800 PO 03/24/21 08:00 04/01/21 08:05 Rosuvastatin Calcium (Crestor) 40 mg QHS PO 03/10/21 21:00 03/31/21 20:53 Senna/Docusate Sodium (Senokot S) 2 tab BID PO 03/10/21 21:00 03/31/21 20:52 Tamsulosin HCl (Flomax) 0.8 mg DAILY PO 03/11/21 09:00 03/13/21 22:56 DC 03/13/21 10:08 Triamcinolone Acetonide (Kenalog 0.1% Cream) apply to scalp DAILY TOP 03/17/21 09:00 03/31/21 10:22 JOAQUIN SARABIA MD Apr 01, 2021 11:04
[2021-04-01 13:44] VITALS: BP 130/88
--- NOTE | 2021-04-01 14:23 | IPNPDOC ---
Text Note Date of Service The patient was seen on 04/01/21. NOTE Patient was seen and examined at bedside this morning. He had no new compla ints. Physical Examination General: Lying in bed, no acute distress Head/Neck/Throat: Trachea midline, mucous membranes moist Eyes: Sclera anicteric, PERRLA Thorax: Normal respiratory effort on room air, lungs clear to auscultation bilaterally, no wheezes/rales/rhonchi Cardiovascular: Normal rate, regular rhythm, normal S1, S2; no S3, S4, rubs/gallops/murmurs Abdomen: Bowel sounds present, soft/nontender/nondistended Genitourinary: No CVA tenderness, no Amos in place Skin: Warm, dry Neurologic: AAOx2 (unable to tell me who the president was). Dysarthria, left facial droop, strength in the right upper extremity is 3/5. Strength in the left upper and lower extremities 5/5, strength in the right lower extremity is 5/5. Assessment /Plan #CVA -Acute infarct appreciated on MRI. Continue w/ asa, clopidogrel, and statin therapy. -Rehab as per aru. -The patient has poor prognosis and is considering hospice care as well #Oropharyngeal dysphagia -continue to work with speech therapy and diet recommendations -Currently on modified diet with aspiration precautions #Hypertension -Continue ambulatory antihypertensives. #Hyperlipidemia -Continue statin therapy, and Zetia #Parkinson's disease -Continue Sinemet #GERD -Continue pantoprazole #BPH -Continue his finasteride #Hematuria -This is now resolved. Urology following. Disposition as per primary VS,Eduard, I+O VS, Eduard, I+O Laboratory Tests 04/01/21 05:58 Vital Signs Date Time Temp Pulse Resp B/P (MAP) Pulse Ox O2 Delivery O2 Flow Rate FiO2 04/01/21 13:44 98.2 85 18 130/88 (102) 96 04/01/21 06:00 Room Air I&O- Last 24 Hours up to 6 AM 04/01/21 05:59 Intake Total 780 ml Output Total 2050 ml Balance -1270 ml DEANGELO BURKS MD Apr 01, 2021 14:23
[2021-04-01] MEDS: LIDOCAINE 5% (LIDODERM) PATCH TD SCH (17:19)
[2021-04-01] MEDS: ROSUVASTATIN 10 MG TAB (CRESTOR) PO SCH (21:46)
[2021-04-01] MEDS: AMITRIPTYLINE 50 MG TAB PO SCH (21:47)
[2021-04-01] MEDS: EZETIMIBE 10MG TABLET (ZETIA) PO SCH (21:47)
[2021-04-01] MEDS: **NOTE PATIENT COMMENT** MISC XX SCH (21:48)
[2021-04-02 00:25] VITALS: BP 132/60
[2021-04-02] MEDS: REMEDY PHYTOPLEX Z-GUARD PASTE 113GM TUBE (FROM STOREROOM PRODUCT) TOP SCH ×2 (05:23→08:19)
[2021-04-02] MEDS: **hydrALAZINE** 50 MG TAB PO SCH ×3 (05:24→11:48)
[2021-04-02 06:07] VITALS: BP 130/64
[2021-04-02] MEDS: COMBIVENT RESPIMAT 100-20MCG INHALER 4GM INH SCH (06:36)
[2021-04-02] MEDS: MAGIC MOUTHWASH SUSPENSION BTL MT SCH ×2 (07:30→11:48)
[2021-04-02] MEDS: QUEtiapine FUMARATE 12.5 MG HALF-TAB PO SCH (08:18)
[2021-04-02] MEDS: SENOKOT S TAB PO SCH (08:18)
[2021-04-02] MEDS: MIRALAX *UNIT DOSE* 17GM PACKET PO SCH (08:18)
[2021-04-02] MEDS: BACLOFEN 5MG PER 1/2 TABLET PO SCH (08:18)
[2021-04-02] MEDS: guaiFENesin 200 MG TAB PO SCH (08:18)
[2021-04-02] MEDS: CLOPIDOGREL 75 MG TAB PO SCH (08:18)
[2021-04-02] MEDS: ASPIRIN 81MG ENTERIC TABLET PO SCH (08:18)
[2021-04-02] MEDS: SINEMET 25-100 MG TAB PO SCH (08:18)
[2021-04-02] MEDS: PANTOPRAZOLE 40MG TAB (PROTONIX) PO SCH (08:19)
[2021-04-02] MEDS: FINASTERIDE 5 MG TAB PO SCH (08:19)
[2021-04-02] MEDS: VANICREAM MOISTURIZING SKIN CREAM 113GM TUBE TOP SCH (08:19)
[2021-04-02] MEDS: LIDOCAINE 5% (LIDODERM) PATCH TD SCH (08:19)
[2021-04-02] MEDS: TRIAMCINOLONE ACET 0.1% CREAM 80 GM TOP SCH (08:20)
[2021-04-02] MEDS ORDERED: HYOS125TA PO (10:58)
[2021-04-02] MEDS ORDERED: MORP1SOL5 PO (10:58)
[2021-04-02] MEDS ORDERED: ATIV1TAB10 PO (10:58)
[2021-04-02 11:48] VITALS: BP 118/71
--- NOTE | 2021-04-02 14:07 | PMRDS ---
NAME: RACHAEL FOREMAN [facility] WT ID#: [id number] JOB: [id number] FARHAD: 03/10/2021 ACCT: [id number] DOCTOR: JOAQUIN SARABIA MD PMR DISCHARGE SUMMARY DATE OF ADMISSION: 03/10/2021 DATE OF DISCHARGE: 04/02/2021 CHIEF COMPLAINT/DISCHARGE DIAGNOSIS: Stroke. HISTORY OF PRESENT ILLNESS: This is a 80-year-old man with a past medical history of Parkinson's, chronic diastolic CHF, hypertension, nicotine and alcohol abuse, IgM, MGUS, history of TIA and CVA on aspirin and Plavix, left sided cervical radiculopathy, pseudogout, alcohol, fatty liver, who presented to [facility] ED on 03/06/2021 with slurred speech, and balance impairment with initial CT showing "old appearing lacunar infarcts in the left basal ganglia. 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 Patient later developed a facial droop and left upper extremity weakness with MRI showing "acute to subacute right external capsule/pillai radiata lacunar infarcts." He was continued on aspirin and Plavix in addition to statin therapy, evaluated by speech and placed on a pureed and honey thickened liquid diet. He was treated for a possible pneumonia for a short period of time and then taken off antibiotics as his procalcitonin was negative and he did not have a cough. He had new deficits in mobility and ADLs and deemed medically appropriate for discharge to ARU. On the day of evaluation, the patient was noted to choke on honey thickened liquids and a stat CT and MRI was ordered to rule out new stroke. PAST MEDICAL HISTORY: As per HPI. HOSPITAL COURSE: Patient was admitted and enrolled in a comprehensive PT/OT program. He received 24 hour nursing supervision and weekly team meetings were held to discuss his progress. Admission MRI and CT did show a new right basal ganglia ischemic infarct for which the case was discussed with Neurology who recommended permissive hypertension, and the patient was downgraded a pudding thickened liquid diet. He was also started on Levaquin for concern for aspiration pneumonia with new cough with a chest x-ray showing a new right lung base linear density. Patient did not develop any leukocytosis or fever and his cough did gradually improve over time. Patient had BPH and required a Amos placement due to frequent intermittent caths, and developed hematuria. He required bladder irrigation and urology was consulted. His Heparin was discontinued. Patient had a recurrent episode of hematuria with clotting and urine culture was positive for yeast in addition to E. faecalis. He was started on Fluconazole and continued on Levaquin followed by Dr. Bran and his hematuria and bladder symptoms gradually improved. The patient continued to be medically stable during his hospital course and was participatory in therapy and was started on antipsychotic due to episodes of agitation which eventually improved. He requested that he be able to go home with Hospice and this was initiated, however ultimately patient changed his name and decided he wanted to go to the [facility] so that the care did not have to be provided by his stepdaughter. DISCHARGE MEDICATIONS: As per instructions. FUNCTIONAL HISTORY: On discharge, patient was min assist for transfers, and min assist for mobility level in a wheelchair. Thank you for this referral.
== END 2021-04-02 13:13 | disposition hospice, home (50) | DRG 57 ==
LOC: M PM&R 17:04
PROVIDERS: ADMIT Physical Medicine & Rehabilitation; ATTEND Physical Medicine & Rehabilitation
DX: I69.354 Hemiplegia and hemiparesis following cerebral infarction affecting left non-dominant side (principal); I50.32 Chronic diastolic (congestive) heart failure; I69.391 Dysphagia following cerebral infarction; R13.12 Dysphagia, oropharyngeal phase; G20 Parkinson's disease; I11.0 Hypertensive heart disease with heart failure; F10.10 Alcohol abuse, uncomplicated; F17.200 Nicotine dependence, unspecified, uncomplicated; D47.2 Monoclonal gammopathy; M54.12 Radiculopathy, cervical region; K70.0 Alcoholic fatty liver; Z98.1 Arthrodesis status; Z90.49 Acquired absence of other specified parts of digestive tract; Z74.09 Other reduced mobility; Z74.1 Need for assistance with personal care; Z79.02 Long term (current) use of antithrombotics/antiplatelets; Z79.899 Other long term (current) drug therapy; Z66 Do not resuscitate

== ENCOUNTER → 2021-04-02 | Outpatient (REF) ==
[~2021-04-02] MED LIST changes: +ATIV1TAB10 PO; +HYOS125TA PO; +MORP1SOL5 PO
== END ==
LOC: M LAB REF 15:01
DX: Z11.52 Encounter for screening for COVID-19 (principal); Z20.822 Contact with and (suspected) exposure to COVID-19